=== PATIENT | male | born 1950 | race Two or more races ===

== ENCOUNTER → 2020-09-15 10:03 | Outpatient (BNVA) | payer MEDICARE, SELFPAY | PROVIDERS: PCP Family Medicine; Referring Provider Family Medicine; Visit Provider Internal Medicine | DX: I48.20 Chronic atrial fibrillation, unspecified (principal); Z51.81 Encounter for therapeutic drug level monitoring; Z79.01 Long term (current) use of anticoagulants | CPT/HCPCS: 85610; 99211 ==

== ENCOUNTER → 2020-10-13 09:53 | Outpatient (BNVA) | payer MEDICARE, SELFPAY | PROVIDERS: PCP Family Medicine; Visit Provider Internal Medicine | DX: I48.20 Chronic atrial fibrillation, unspecified (principal); Z51.81 Encounter for therapeutic drug level monitoring; Z79.01 Long term (current) use of anticoagulants | CPT/HCPCS: 85610; 99211 ==

== ENCOUNTER → 2020-11-10 09:56 | Outpatient (BNVA) | payer MEDICARE, SELFPAY | PROVIDERS: PCP Family Medicine; Visit Provider Internal Medicine | DX: I48.20 Chronic atrial fibrillation, unspecified (principal); Z79.01 Long term (current) use of anticoagulants; Z51.81 Encounter for therapeutic drug level monitoring | CPT/HCPCS: 85610; 99211 ==

== ENCOUNTER 2020-12-07 10:23 | Outpatient (REF) | payer MEDICARE, SELFPAY ==
[2020-12-07 11:31] LABS: MANUAL DIFF FLAG NO
[2020-12-07 11:35] LABS: Basophils Absolute Auto 0.1 X10*3/uL (0.0-0.2); Basophils Percent Auto 1.1 % (0-2); Eosinophils Absolute Auto 0.4 X10*3/uL (0.0-0.4); Eosinophils Percent Auto 4.8 % (0-4); Hemoglobin 15.5 g/dl (14.0-18.0); Imm Gran Abs Auto 0.04 X10*3/uL (0.00-0.03); Imm Gran Pct Auto 0.5 % (0.0-0.4); Lymphocytes Absolute Auto 2.1 X10*3/uL (1.2-4.9); Lymphocytes Percent Auto 25.3 % (20-40); Mean Corpuscular Hemoglobin 26.8 pg (27.0-33.0); Mean Corpuscular Volume 86.5 fL (80-98); Mean Platelet Volume 10.9 fL (9.4-12.4); Monocytes Absolute Auto 0.9 X10*3/uL (0.1-1.2); Monocytes Percent Auto 11.5 % (2-11); Neutrophils Absolute Auto 4.7 X10*3/uL (2.0-8.3); Neutrophils Percent Auto 56.8 % (45-73); Platelet Count 259 X10*3/uL (160-400); Red Blood Count 5.78 X10*6/uL (4.60-5.80); Red Cell Distribution Width 15.3 % (11.0-16.0); White Blood Count 8.2 X10*3/uL (4.8-10.8)
[2020-12-07 12:00] LABS: Anion Gap 14 (12-20); Blood Urea Nitrogen 54 mg/dL (9-16); Calcium 9.4 mg/dL (8.4-10.2); Carbon Dioxide 28 mmol/L (22-29); Chloride 104 mmol/L (96-108); Estimated Glomerular Filt Rate 21; Potassium 5.1 mmol/l (3.3-5.1); Sodium 141 mmol/L (135-145)
== END 2020-12-07 10:24 | disposition home or self-care (01) ==
LOC: HO.LAB 10:23
PROVIDERS: PCP Family Medicine; Visit Provider Internal Medicine Hypertension Specialist
DX: I12.9 Hypertensive chronic kidney disease with stage 1 through stage 4 chronic kidney disease, or unspecified chronic kidney disease (principal); N18.30 Chronic kidney disease, stage 3 unspecified; R80.9 Proteinuria, unspecified; N11.9 Chronic tubulo-interstitial nephritis, unspecified
CPT/HCPCS: 36415; 80051; 82310; 82565; 84520; 85025

== ENCOUNTER → 2020-12-08 10:04 | Outpatient (BNVA) | payer MEDICARE, SELFPAY | PROVIDERS: PCP Family Medicine; Visit Provider Internal Medicine | DX: I48.20 Chronic atrial fibrillation, unspecified (principal); Z51.81 Encounter for therapeutic drug level monitoring; Z79.01 Long term (current) use of anticoagulants | CPT/HCPCS: 85610; 99211 ==

== ENCOUNTER → 2021-01-05 09:47 | Outpatient (BNVA) | payer MEDICARE, SELFPAY | PROVIDERS: PCP Family Medicine; Visit Provider Internal Medicine | DX: I48.20 Chronic atrial fibrillation, unspecified (principal); Z51.81 Encounter for therapeutic drug level monitoring; Z79.01 Long term (current) use of anticoagulants | CPT/HCPCS: 85610; 99211 ==

== ENCOUNTER → 2021-01-07 10:45 | Outpatient (BNVA) | payer MEDICARE, SELFPAY | PROVIDERS: PCP Family Medicine; Visit Provider Internal Medicine Cardiovascular Disease | DX: I48.0 Paroxysmal atrial fibrillation (principal); I25.10 Atherosclerotic heart disease of native coronary artery without angina pectoris; R00.1 Bradycardia, unspecified | CPT/HCPCS: 93005; 99212 ==

== ENCOUNTER → 2021-01-11 09:56 | Outpatient (BNVA) | payer MEDICARE, SELFPAY | PROVIDERS: PCP Family Medicine; Visit Provider Internal Medicine | DX: I48.20 Chronic atrial fibrillation, unspecified (principal); Z51.81 Encounter for therapeutic drug level monitoring; Z79.01 Long term (current) use of anticoagulants | CPT/HCPCS: 85610; 99211 ==

== ENCOUNTER → 2021-01-25 09:55 | Outpatient (BNVA) | payer MEDICARE, SELFPAY | PROVIDERS: PCP Family Medicine; Visit Provider Internal Medicine | DX: I48.0 Paroxysmal atrial fibrillation (principal); Z51.81 Encounter for therapeutic drug level monitoring; Z79.01 Long term (current) use of anticoagulants | CPT/HCPCS: 85610; 99211 ==

== ENCOUNTER → 2021-02-22 09:50 | Outpatient (BNVA) | payer MEDICARE, SELFPAY | PROVIDERS: PCP Family Medicine; Visit Provider Internal Medicine | DX: I48.0 Paroxysmal atrial fibrillation (principal); Z79.01 Long term (current) use of anticoagulants; Z51.81 Encounter for therapeutic drug level monitoring | CPT/HCPCS: 85610; 99211 ==

== ENCOUNTER 2021-03-03 10:09 | Emergency (ER) | payer MEDICARE, SELFPAY ==
[2021-03-03 11:31] VITALS: BP 119/83; PULSE 93; RESP 14; TEMP 36.6; O2SAT 96; BMI 31.4
[2021-03-03 12:16] LABS: MANUAL DIFF FLAG NO
[2021-03-03 12:21] LABS: Basophils Absolute Auto 0.1 X10*3/uL (0.0-0.2); Eosinophils Absolute Auto 0.4 X10*3/uL (0.0-0.4); Hematocrit 45.3 % (42-52); Hemoglobin 14.4 g/dl (14.0-18.0); Imm Gran Abs Auto 0.04 X10*3/uL (0.00-0.03); Imm Gran Pct Auto 0.6 % (0.0-0.4); Lymphocytes Absolute Auto 1.7 X10*3/uL (1.2-4.9); Lymphocytes Percent Auto 22.7 % (20-40); Mean Corpuscular HGB Conc 31.8 g/dl (31.0-36.0); Mean Corpuscular Hemoglobin 27.7 pg (27.0-33.0); Mean Corpuscular Volume 87.3 fL (80-98); Mean Platelet Volume 11.2 fL (9.4-12.4); Monocytes Absolute Auto 0.8 X10*3/uL (0.1-1.2); Neutrophils Absolute Auto 4.4 X10*3/uL (2.0-8.3); Neutrophils Percent Auto 59.7 % (45-73); Platelet Count 215 X10*3/uL (160-400); Red Blood Count 5.19 X10*6/uL (4.60-5.80); Red Cell Distribution Width 15.6 % (11.0-16.0); White Blood Count 7.3 X10*3/uL (4.8-10.8)
[2021-03-03 12:26] LABS: INTERNATIONAL NORM RATIO 2.7 (0.9-1.1); Prothrombin Time 32.6 SEC (10.8-13.0)
[2021-03-03 12:46] LABS: Anion Gap 10 (12-20); Blood Urea Nitrogen 48 mg/dL (9-16); Calcium 9.1 mg/dL (8.4-10.2); Carbon Dioxide 23 mmol/L (22-29); Chloride 111 mmol/L (96-108); Creatinine Clr Calc Pharmacy 28.5; Estimated Glomerular Filt Rate 26; Glucose Random 135 mg/dL (60-115); Potassium 4.9 mmol/L (3.3-5.1); Sodium 139 mmol/L (135-145)
--- NOTE | 2021-03-03 13:14 | ED.EYEPROB ---
HPI - Eye Problem General Chief complaint: Eye Problems Stated complaint: RED EYES Time Seen by Provider: 03/03/21 11:24 Source: patient and family ( at bedside) Mode of arrival: ambulatory Limitations: no limitations History of Present Illness HPI Narrative: 70-year-old male with a past medical history of coronary artery disease, paroxysmal atrial fibrillation currently on Coumadin, sinus bradycardia and hypertension presenting to the ED with complaints of right eye redness over the past month and he feels like it is now going to the left eye. Denies any trauma or any other symptoms complaints or concerns at this time. chief complaint: eye redness Onset (ago): month(s) (1 month) Onset description: unknown Duration: constant and progressively worsening Location: right eye Eye Symptoms: redness Place: home Mechanism: none Severity: mild Associated symptoms: none Treatments Prior to Arrival: none Related Data Home Medications Medication Instructions Recorded Confirmed atorvastatin 40 mg tablet 40 mg PO BEDTIME 01/07/21 01/25/21 cholecalciferol (vitamin D3) 25 25 mcg PO DAILY 01/07/21 01/25/21 mcg (1,000 unit) capsule fenofibrate 160 mg tablet 160 mg PO DAILY 01/07/21 01/25/21 gabapentin 100 mg capsule 100 mg PO BEDTIME 01/07/21 01/25/21 metoprolol tartrate 100 mg tablet 100 mg PO BID 01/07/21 01/25/21 Previous Rx's Medication Instructions Recorded warfarin 5 mg tablet 5 mg PO DAILY #90 tab 09/15/20 Allergies Allergy/AdvReac Type Severity Reaction Status Date / Time lisinopril [LISINOPRIL] Allergy Severe ACUTE Verified 01/25/21 10:14 KIDNEY INJURY acetaminophen [From PERCOCET] Allergy Unknown AGITATION Verified 01/25/21 10:14 codeine [CODEINE] Allergy Unknown AGITATION Verified 01/25/21 10:14 morphine [MORPHINE] Allergy Unknown AGITATION, Verified 01/25/21 10:14 confusion oxycodone [Percocet] Allergy Unknown UNKNOWN Verified 01/25/21 10:14 From PERCOCET Allergy Unknown AGITATION Uncoded 08/06/20 16:11 Review of Systems Review of Systems: Constitutional : No fevers, no chills, No changes in activity, No lethargy, No recent prior head injury, No agitation, No increased fussiness ENT/Mouth : No Ear Pain, No Nasal discharge/drainage Eyes: No Vision changes/blurry/decreased vision, No Eye Pain, No Swelling, + Redness, No Foreign Body, No Photophobia, no discharge, no drainage, no itching, no eyelid edema, no contact lens uses, no recent welding, no bleeding Cardiovascular : No Chest Pain, No SOB Respiratory : No Cough Gastrointestinal : No Nausea, No Vomiting, No abdominal Pain Genitourinary : No Dysuria, No Urinary Frequency, No Urinary Incontinence, No Urgency, No Flank Pain Musculoskeletal : No joint pain, No neck stiffness, No back pain/injury Skin : No lacerations Neuro : No unsteady gait, No Paresthesias, No Loss of Consciousness, No altered mental status, No dizziness, No Headache Denies past medical history of HIV, recent trauma, coagulopathy, recent spinal/ epidural procedure, new medication, URI symptoms, close contacts with similar symptoms, tick bite, or known CO2 exposure. Yes all other systems are reviewed and are negative PMFSH Past Medical History Attestation statement: The following information was validated with the patient. Medical History CAD (coronary artery disease) HTN (hypertension) Paroxysmal atrial fibrillation Sinus bradycardia Surgical History History of esophagogastroduodenoscopy (EGD) Hx of cardiac cath Hx of cataract extraction Hx of colonoscopy Hx of cystoscopy Stented coronary artery Social History Social History Smoked in Last 30 Days: No Use of substances other than those prescribed or required for medical reasons: No Advance Directives: No Advance Directives Information Provided: Yes Physical Exam Vital Signs: Vital Signs: Last Vital Signs Temp 97.9 F 03/03/21 11:31 Pulse 93 03/03/21 11:31 Resp 14 03/03/21 11:31 BP 119/83 03/03/21 11:31 Pulse Ox 96 03/03/21 11:31 Body Mass Index 31.4 vital signs have been reviewed as normal and appeared to be correct. Blood pressure normal. Heart rate normal. Respiration rate normal. Temperature normal. Oxygen saturation normal. Appearance: Alert. Oriented X3. No acute distress. Head: Normal external exam. Normocephalic. Atraumatic. No Garay signs noted. No raccoon eyes noted Eyes: PERRLA. EOMI. To right conjunctiva patient has subconjunctival hemorrhage noted. Left conjunctiva within normal limits. Cornea are normal. Funduscopic exam within normal limits. Sclera normal. Eyelids normal. No papilledema noted. Anterior chamber normal. No photophobia noted. ENT: EAC normal. TM's Normal. Pharynx normal. Uvula midline. Moist mucous membranes. Neck: Normal inspection. Neck supple. FROM. No adenopathy. Thyroid Normal. No meningeal signs. No neck mass noted. CVS: Normal heart rate and rhythm. Heart sound normal. No murmurs noted. Pulses normal throughout. Respiratory: No respiratory distress. Painless inspiration. Breath sounds normal. Back: Full range of motion noted. Skin: Skin warm and dry. Normal skin color. Normal skin turgor. No rashes/lesions/lacerations noted. Extremities: No lower extremity edema. Extremities exhibit normal range of motion. Extremities nontender. Neuro: Oriented X 3. No motor deficit. No sensory deficit. Reflexes normal. Course Course Course Narrative: 70-year-old male presenting to the ED with subconjunctival hemorrhage. Wanted his PT INR checked labs obtained and patient's PT INR is 32.6 and 2.7 therefore within normal limits. BUN and creatinine elevated although similar compared to prior. Will DC home with instructions return if any new or worsening symptoms to follow up with primary care provider/coin teller. Patient understands agrees with this plan. MDM - Eye Problem Medical Records Attestation: I reviewed the patient's medical records. Lab Data Attestation: I reviewed the patient's lab results. Result diagrams: 03/03/21 12:09 03/03/21 12:09 Labs: Lab Results 03/03/21 03/03/21 03/03/21 Range/Units 12:09 12:09 12:09 WBC 7.3 (4.8-10.8) X10*3/uL RBC 5.19 (4.60-5.80) X10*6/uL Hgb 14.4 (14.0-18.0) g/dl Hct 45.3 (42-52) % MCV 87.3 (80-98) fL MCH 27.7 (27.0-33.0) pg MCHC 31.8 (31.0-36.0) g/dl RDW 15.6 (11.0-16.0) % Plt Count 215 (160-400) X10*3/uL MPV 11.2 (9.4-12.4) fL Immature Gran % (Auto) 0.6 H (0.0-0.4) % Neut % (Auto) 59.7 (45-73) % Lymph % (Auto) 22.7 (20-40) % [place] % (Auto) 11.0 (2-11) % Eos % (Auto) 5.0 H (0-4) % Baso % (Auto) 1.0 (0-2) % Lymph # (Auto) 1.7 (1.2-4.9) X10*3/uL [place] # (Auto) 0.8 (0.1-1.2) X10*3/uL Eos # (Auto) 0.4 (0.0-0.4) X10*3/uL Baso # (Auto) 0.1 (0.0-0.2) X10*3/uL Abs Immat Gran (auto) 0.04 H (0.00-0.03) X10*3/uL Absolute Neuts (auto) 4.4 (2.0-8.3) X10*3/uL Absolute Nucleated RBC 0.000 (0.0-0.012) X10*3/uL Nucleated RBC % (auto) 0.0 (0.0-0.2) /100WBC PT 32.6 H (10.8-13.0) SEC INR 2.7 H (0.9-1.1) Sodium 139 (135-145) mmol/L Potassium 4.9 (3.3-5.1) mmol/L Chloride 111 H (96-108) mmol/L Carbon Dioxide 23 (22-29) mmol/L Anion Gap 10 L (12-20) BUN 48 H (9-16) mg/dL Creatinine 2.51 H (0.5-1.4) mg/dL Estim Creat Clear Calc 28.5 Estimated GFR 26 Random Glucose 135 H (60-115) mg/dL Calcium 9.1 (8.4-10.2) mg/dL Discharge Plan Discharge Clinical Impression: Subconjunctival hemorrhage Patient Disposition: Home, Self-Care Instructions: Subconjunctival Hemorrhage (ED) Prescriptions: No Action warfarin 5 mg tablet 5 mg PO DAILY Qty: 90 RF: 0 atorvastatin 40 mg tablet 40 mg PO BEDTIME RF: 0 fenofibrate 160 mg tablet 160 mg PO DAILY RF: 0 gabapentin 100 mg capsule 100 mg PO BEDTIME RF: 0 metoprolol tartrate 100 mg tablet 100 mg PO BID RF: 0 cholecalciferol (vitamin D3) 25 mcg (1,000 unit) capsule 25 mcg PO DAILY RF: 0 Referrals: Jose F Cottrell [Physician] - 2 days Sherry Ward MD [Primary Care Provider] - 2 days Print Language: Malawian
== END 2021-03-03 13:50 | disposition home or self-care (01) ==
PROVIDERS: Physician Assistant Medical; Emergency Provider Emergency Medicine Emergency Medical Services; PCP Family Medicine
DX: H11.32 Conjunctival hemorrhage, left eye (principal); I10 Essential (primary) hypertension; I48.0 Paroxysmal atrial fibrillation; Z79.01 Long term (current) use of anticoagulants
CPT/HCPCS: 36415; 80048; 85025; 85610; 99283

== ENCOUNTER 2021-03-05 09:55 | Outpatient (REF) | payer MEDICARE, SELFPAY ==
--- NOTE | ~2021-03-05 | CT_ITS ---
EXAMINATION: CT CHEST WITHOUT CONTRAST CLINICAL INFORMATION: Follow-up thoracic aortic aneurysm COMPARISON: Previous chest CT scans most recent December 2019 TECHNIQUE: Multidetector volumetric CT imaging of the chest was done. Axial MIP volume rendering provided. Sagittal and coronal reformatted images were obtained. This CT examination was performed using dose optimization techniques as appropriate, variously including the following: *Automated exposure control *Adjustment of mA and/or kV according to patient size (this includes techniques or standardized protocols for targeted exams where dose is matched to indication/reason for exam; i.e. extremities or head) *Use of iterative reconstruction technique DLP: 190 mGy-cm FINDINGS: LUNGS: There is a 3 mm peripheral or subpleural left upper lobe nodule adjacent to the fissure axial image 118 series 7 that is stable. The lungs are otherwise clear. 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 There is heterogeneous attenuation seen in the thoracic aorta without contrast and some linear calcification questionable for thrombus versus old dissection. This appears unchanged. The ascending thoracic aorta is normal in caliber measuring 3.5 cm in diameter. The heart does not appear enlarged. There is mild coronary artery and aortic valve calcification. There are no enlarged lymph nodes. PLEURA: There is no pleural effusion. No pleural mass or thickening. AXILLA: No lymphadenopathy. UPPER ABDOMEN: There are gallstones in the gallbladder. OSSEOUS STRUCTURES: There are degenerative changes of the spine. 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
== END 2021-03-05 09:56 | disposition home or self-care (01) ==
LOC: HO.CT 09:55
PROVIDERS: PCP Family Medicine; Visit Provider Surgery Vascular Surgery
DX: I71.2 Thoracic aortic aneurysm, without rupture (principal)
CPT/HCPCS: 71250

== ENCOUNTER → 2021-04-13 13:23 | Outpatient (BNVA) | payer MEDICARE, SELFPAY | PROVIDERS: PCP Family Medicine; Visit Provider Internal Medicine | DX: I48.0 Paroxysmal atrial fibrillation (principal); Z51.81 Encounter for therapeutic drug level monitoring; Z79.01 Long term (current) use of anticoagulants | CPT/HCPCS: 85610; 99211 ==

== ENCOUNTER → 2021-04-20 10:05 | Outpatient (BNVA) | payer MEDICARE, SELFPAY | PROVIDERS: PCP Family Medicine; Visit Provider Surgery Vascular Surgery | DX: I71.2 Thoracic aortic aneurysm, without rupture (principal) | CPT/HCPCS: 99212 ==

== ENCOUNTER → 2021-05-11 13:01 | Outpatient (BNVA) | payer MEDICARE, SELFPAY | PROVIDERS: PCP Family Medicine; Visit Provider Internal Medicine | DX: I48.0 Paroxysmal atrial fibrillation (principal); Z51.81 Encounter for therapeutic drug level monitoring; Z79.01 Long term (current) use of anticoagulants | CPT/HCPCS: 85610; 99211 ==

== ENCOUNTER → 2021-06-08 13:23 | Outpatient (BNVA) | payer MEDICARE, SELFPAY | PROVIDERS: PCP Family Medicine; Visit Provider Internal Medicine | DX: I48.0 Paroxysmal atrial fibrillation (principal); Z51.81 Encounter for therapeutic drug level monitoring; Z79.01 Long term (current) use of anticoagulants | CPT/HCPCS: 85610; 99211 ==

== ENCOUNTER → 2021-07-06 13:31 | Outpatient (BNVA) | payer MEDICARE, SELFPAY | PROVIDERS: PCP Family Medicine; Visit Provider Internal Medicine | DX: I48.0 Paroxysmal atrial fibrillation (principal); Z51.81 Encounter for therapeutic drug level monitoring; Z79.01 Long term (current) use of anticoagulants | CPT/HCPCS: 85610; 99211 ==

== ENCOUNTER → 2021-07-08 10:45 | Outpatient (BNVA) | payer MEDICARE, SELFPAY | PROVIDERS: PCP Family Medicine; Visit Provider Internal Medicine Cardiovascular Disease | DX: I48.0 Paroxysmal atrial fibrillation (principal); I25.10 Atherosclerotic heart disease of native coronary artery without angina pectoris; R00.1 Bradycardia, unspecified | CPT/HCPCS: 99212 ==

== ENCOUNTER 2021-07-30 07:56 | Outpatient (REF) | payer MEDICARE, SELFPAY ==
--- NOTE | ~2021-07-30 | US_ITS ---
EXAMINATION: US RETROPERITONEAL LIMITED (RENAL ONLY) CLINICAL INFORMATION: Chronic kidney disease stage 3 unspecified. COMPARISON: Renal ultrasound 12/11/2019. TECHNIQUE: Real-time imaging of the kidneys. FINDINGS: RIGHT KIDNEY: 9.4 x 5.6 x 4.6 cm (SAG x AP x TRV). The kidney is normal in contour, and echogenicity. Renal cortical thickness is normal. No calculi or focal parenchymal lesions. No hydronephrosis. LEFT KIDNEY: 9.1 x 4.0 x 3.9 cm (SAG x AP x TRV). The kidney is normal in contour, and echogenicity. Renal cortical thickness is normal. No renal calculi or hydronephrosis. 6 mm simple cyst of the upper pole the right kidney for which no imaging follow-up is recommended. US/US renal BI IMPRESSION: Symmetrically diminutive kidneys. This may reflect symmetric atrophy or body habitus. No renal cortical thinning. Normal renal cortical echogenicity. No hydronephrosis.
== END 2021-07-30 07:57 | disposition home or self-care (01) ==
LOC: HO.US 07:56
PROVIDERS: PCP Family Medicine; Visit Provider Urology
DX: N18.30 Chronic kidney disease, stage 3 unspecified (principal); N40.1 Benign prostatic hyperplasia with lower urinary tract symptoms
CPT/HCPCS: 76775

== ENCOUNTER → 2021-08-03 08:29 | Outpatient (BNVA) | payer MEDICARE, SELFPAY | PROVIDERS: PCP Family Medicine; Visit Provider Internal Medicine | DX: I48.0 Paroxysmal atrial fibrillation (principal); Z51.81 Encounter for therapeutic drug level monitoring; Z79.01 Long term (current) use of anticoagulants | CPT/HCPCS: 85610; 99211 ==

== ENCOUNTER 2021-08-10 10:00 | Outpatient (REF) | payer MEDICARE, SELFPAY ==
[2021-08-10 11:36] LABS: PSA,Total (Free>4and<10) 0.97 ng/mL (0.00-4.00)
== END 2021-08-10 10:01 | disposition home or self-care (01) ==
LOC: HO.LAB 10:00
PROVIDERS: PCP Family Medicine; Visit Provider Urology
DX: Z12.5 Encounter for screening for malignant neoplasm of prostate (principal); N40.1 Benign prostatic hyperplasia with lower urinary tract symptoms
CPT/HCPCS: 36415; 84153

== ENCOUNTER → 2021-08-31 09:28 | Outpatient (BNVA) | payer MEDICARE, SELFPAY | PROVIDERS: PCP Family Medicine; Visit Provider Internal Medicine | DX: I48.0 Paroxysmal atrial fibrillation (principal); Z51.81 Encounter for therapeutic drug level monitoring; Z79.01 Long term (current) use of anticoagulants | CPT/HCPCS: 85610; 99211 ==

== ENCOUNTER → 2021-09-14 09:49 | Outpatient (BNVA) | payer MEDICARE, SELFPAY | PROVIDERS: PCP Family Medicine; Visit Provider Internal Medicine | DX: I48.0 Paroxysmal atrial fibrillation (principal); Z51.81 Encounter for therapeutic drug level monitoring; Z79.01 Long term (current) use of anticoagulants | CPT/HCPCS: 85610; 99211 ==

== ENCOUNTER → 2021-10-12 10:03 | Outpatient (BNVA) | payer MEDICARE, SELFPAY | PROVIDERS: PCP Family Medicine; Visit Provider Internal Medicine | DX: I48.0 Paroxysmal atrial fibrillation (principal); Z51.81 Encounter for therapeutic drug level monitoring; Z79.01 Long term (current) use of anticoagulants | CPT/HCPCS: 85610; 99211 ==

== ENCOUNTER → 2021-10-20 14:41 | Outpatient (BNVA) | payer MEDICARE, SELFPAY | PROVIDERS: PCP Family Medicine; Visit Provider Urology | DX: N20.0 Calculus of kidney (principal) | CPT/HCPCS: Q3014 ==

== ENCOUNTER → 2021-11-09 09:51 | Outpatient (BNVA) | payer MEDICARE, SELFPAY | PROVIDERS: PCP Family Medicine; Visit Provider Internal Medicine | DX: I48.0 Paroxysmal atrial fibrillation (principal); Z51.81 Encounter for therapeutic drug level monitoring; Z79.01 Long term (current) use of anticoagulants | CPT/HCPCS: 85610; 99211 ==

== ENCOUNTER → 2021-12-07 10:00 | Outpatient (BNVA) | payer MEDICARE, SELFPAY | PROVIDERS: PCP Family Medicine; Visit Provider Internal Medicine | DX: I48.0 Paroxysmal atrial fibrillation (principal); Z51.81 Encounter for therapeutic drug level monitoring; Z79.01 Long term (current) use of anticoagulants | CPT/HCPCS: 85610; 99211 ==

== ENCOUNTER → 2021-12-13 09:57 | Outpatient (BNVA) | payer MEDICARE, SELFPAY | PROVIDERS: PCP Family Medicine; Visit Provider Internal Medicine | DX: I48.0 Paroxysmal atrial fibrillation (principal); Z51.81 Encounter for therapeutic drug level monitoring; Z79.01 Long term (current) use of anticoagulants | CPT/HCPCS: 85610; 99211 ==

== ENCOUNTER → 2021-12-20 10:05 | Outpatient (BNVA) | payer MEDICARE, SELFPAY | PROVIDERS: PCP Family Medicine; Visit Provider Internal Medicine | DX: I48.0 Paroxysmal atrial fibrillation (principal); Z51.81 Encounter for therapeutic drug level monitoring; Z79.01 Long term (current) use of anticoagulants | CPT/HCPCS: 85610; 99211 ==

== ENCOUNTER 2021-12-21 11:48 | Outpatient (REF) | payer MEDICARE, SELFPAY ==
[2021-12-21 13:33] LABS: Alanine Aminotransferase 21 U/L (0-40); Albumin Level 3.7 g/dL (3.5-5.0); Alkaline Phosphatase 40 U/L (39-117); Anion Gap 12 (12-20); Aspartate Amino Transferase 25 U/L (5-37); Bilirubin Total 0.6 mg/dL (0.0-1.0); Blood Urea Nitrogen 42 mg/dL (9-16); Calcium 9.3 mg/dL (8.4-10.2); Carbon Dioxide 27 mmol/L (22-29); Chloride 109 mmol/L (96-108); Estimated Glomerular Filt Rate 24; Glucose Random 98 mg/dL (60-115); Potassium 5.3 mmol/L (3.3-5.1); Sodium 143 mmol/L (135-145); Total Protein 6.9 g/dL (6.5-8.0)
[2021-12-21 13:40] LABS: Creatinine Urine 79.79 mg/dL; Protein/Creatinine Ratio, Ur 2.12 (<0.2); Total Protein Urine Random 169 mg/dL (<12)
[2021-12-23 16:31] LABS: PTHI 85 pg/mL (14-64)
== END 2021-12-21 11:49 | disposition home or self-care (01) ==
LOC: HO.LAB 11:48
PROVIDERS: PCP Family Medicine; Visit Provider Internal Medicine Hypertension Specialist
DX: N18.4 Chronic kidney disease, stage 4 (severe) (principal)
CPT/HCPCS: 36415; 80053; 83970; 84156

== ENCOUNTER → 2021-12-28 13:54 | Outpatient (REF) | payer MEDICARE, SELFPAY ==
--- NOTE | 2021-12-28 13:58 | CA_ITS ---
Transthoracic Echocardiogram Patient (Last, First, Middle): Ziggy Payton R Gender: Male Date of : 1950 Age: 71 Procedure Date: 12/28/2021 Procedure Type: Transthoracic Echocardiogram Location: OP Height: 167.64 cm Weight: 86.18 kg BSA: 1.96 m2 Heart Rate: bpm BP: 124 / 70 mmHg Story Teller: JENNIFER Referring MD: Chan Cain MD Symptoms: I48.0 - Paroxysmal atrial fibrillation Study Quality: Fair ECG Rhythm: Atrial Fibrillation Conclusions: - The left ventricular systolic function is normal. The visually estimated ejection fraction is between 55-60%. - There is mild mitral valve regurgitation. - There is mild calcification of the aortic valve. - Patient in atrial fibrillation/slightly rapid rate during study. Findings Left Ventricle Normal left ventricular cavity size. There is mildly increased left ventricular wall thickness. The left ventricular systolic function is normal. The visually estimated ejection fraction is between 55-60%. There is no evidence of regional wall motion abnormalities. Diastolic function is indeterminate on the basis of available data. Right Ventricle Normal right ventricular cavity size and systolic function. Atria Both atria are normal in size. Aortic Valve There is mild calcification of the aortic valve. There is no aortic valve stenosis. There is no aortic valve regurgitation. Mitral Valve The mitral valve appears normal. There is mild mitral valve regurgitation. There is no mitral valve stenosis. Pulmonic Valve The pulmonic valve was not well visualized. Tricuspid Valve There is trace tricuspid valve regurgitation. The pulmonary artery systolic pressure is normal. Great Vessels The aortic annulus is normal in size. Venous Top normal IVC size with slightly blunted collapse. Pericardium/Pleural There is no evidence of pericardial effusion. Prior Study Comparison No significant change compared to prior study dated: 01/21/2019. Measurements 2D Linear Measurements IVSd: 1.15 0.6-0.9/0.6-1.0 cm LVIDd: 5.24 3.9-5.3/4.2-5.9 cm LVIDd Index: 2.67 2.4-3.2/2.2-3.1 cm/m2 LVIDs: 3.77 2.0-3.6 cm LVPWd: 0.98 0.7-1.1 cm Ao Root: 3.20 2.1-3.5 cm LA Diam: 4.70 2.7-3.8/3.0-4.0 cm LAIDs Index: 2.40 1.5-2.3 cm/m2 LV Mass: 266.86 67-162/88-224 g LV Mass Index: 136.16 43-95/49-115 g/m2 LVOT Diam: 2.10 3.0+(-)1.3 cm 2D Systolic Function EF 4C: 74.30 >55% EF 2C: 53.20 >55% EF BiP: 65.70 >55% Mitral Valve MV Pk E: 0.97 MV Decel Time: 74.00 E'Lateral: 8.92 E'Medial: 5.22 E/E' Med: 18.60 E/E' Lat: 10.90 PHT: 22.00 MVA PHT: 10.00 Decel [place]: 14.13 Aortic Valve AoV Pk Reuben: 1.14 AoV Pk Grad: 5.00 LVOT LVOT Pk Reuben: 0.75 LVOT Mn Reuben: 0.52 LVOT VTI: 0.13 LVOT Pk Grad: 2.00 LVOT Mn Grad: 1.00 LVOT Diam: 2.10 LVOT Area: 3.46 Diastolic Function MV Pk E: 0.97 E'Medial: 5.22 E/E' Med: 18.60 E' Laterial: 8.92 E/E' Lat: 10.90 Right Ventricle TAPSE (mm): 1.89 TVS' Reuben: 12.10 Tricuspid Valve TR Pk Reuben: 2.29 TR Pk Grad: 21.00 RA Press: 3.00 RVSP: 24.00 Great Vessels Aorta Ao Root-2D: 3.20 2.0-3.7 cm Updated in Other Vendor System with Status of Final Howard Goldman MD electronically signed on 12/28/2021 5:12:18 PM with status of Final
== END ==
LOC: HO.CARD 13:54
PROVIDERS: PCP Family Medicine; Visit Provider Internal Medicine Cardiovascular Disease
DX: I48.0 Paroxysmal atrial fibrillation (principal)
CPT/HCPCS: 93306

== ENCOUNTER → 2022-01-03 10:13 | Outpatient (BNVA) | payer MEDICARE, SELFPAY | PROVIDERS: PCP Family Medicine; Visit Provider Internal Medicine | DX: I48.0 Paroxysmal atrial fibrillation (principal); Z51.81 Encounter for therapeutic drug level monitoring; Z79.01 Long term (current) use of anticoagulants | CPT/HCPCS: 85610; 99211 ==

== ENCOUNTER → 2022-01-11 11:03 | Outpatient (BNVA) | payer MEDICARE, SELFPAY | PROVIDERS: PCP Family Medicine; Referring Provider Family Medicine; Visit Provider Internal Medicine Cardiovascular Disease | DX: I48.0 Paroxysmal atrial fibrillation (principal); I25.10 Atherosclerotic heart disease of native coronary artery without angina pectoris; R00.1 Bradycardia, unspecified | CPT/HCPCS: 93005; 99212 ==

== ENCOUNTER → 2022-02-01 10:01 | Outpatient (BNVA) | payer MEDICARE, SELFPAY | PROVIDERS: PCP Family Medicine; Visit Provider Internal Medicine | DX: I48.0 Paroxysmal atrial fibrillation (principal); Z51.81 Encounter for therapeutic drug level monitoring; Z79.01 Long term (current) use of anticoagulants | CPT/HCPCS: 85610; 99211 ==

== ENCOUNTER → 2022-02-04 11:27 | Outpatient (REF) | payer MEDICARE, SELFPAY ==
--- NOTE | 2022-02-04 11:31 | HM_ITS ---
* Total monitoring time 2 days and 23 hours. * Underlying rhythm is atrial fibrillation. Average 108/Min. Range 58 to 141/Min. 77% of the time, rate > 100/Min. * One pause, 2.9 seconds at 07:04am. * Rare ventricular ectopy with minimal burden. * No patient events. * Overall, poorly controlled atrial fibrillation with frequent rapid rates. MTDD
== END ==
LOC: HO.CARD 11:27
PROVIDERS: PCP Family Medicine; Visit Provider Internal Medicine Cardiovascular Disease
DX: I48.0 Paroxysmal atrial fibrillation (principal)
CPT/HCPCS: 93242

== ENCOUNTER → 2022-03-01 09:50 | Outpatient (BNVA) | payer MEDICARE, SELFPAY | PROVIDERS: PCP Family Medicine; Visit Provider Internal Medicine | DX: I48.0 Paroxysmal atrial fibrillation (principal); Z51.81 Encounter for therapeutic drug level monitoring; Z79.01 Long term (current) use of anticoagulants | CPT/HCPCS: 85610; 99211 ==

== ENCOUNTER → 2022-03-16 09:58 | Outpatient (BNVA) | payer MEDICARE, SELFPAY | PROVIDERS: PCP Family Medicine; Visit Provider Internal Medicine | DX: I48.0 Paroxysmal atrial fibrillation (principal); Z79.01 Long term (current) use of anticoagulants; Z51.81 Encounter for therapeutic drug level monitoring | CPT/HCPCS: 85610; 99211 ==

== ENCOUNTER 2022-03-17 12:10 | Emergency (ER) | payer MEDICARE, SELFPAY ==
--- NOTE | ~2022-03-17 | CT_ITS ---
EXAMINATION: CT HEAD WITHOUT CONTRAST CLINICAL INFORMATION: Dizziness COMPARISON: CT head 02/05/2018 TECHNIQUE: Contiguous axial imaging was performed from the skull base to vertex without intravenous administration of contrast. Coronal and sagittal reformatted images are performed at CT scanner This CT examination was performed using dose optimization techniques as appropriate, variously including the following: *Automated exposure control *Adjustment of mA and/or kV according to patient size (this includes techniques or standardized protocols for targeted exams where dose is matched to indication/reason for exam; i.e. extremities or head) *Use of iterative reconstruction technique DLP: 766 mGy-cm FINDINGS: There is no evidence of acute intracranial hemorrhage or territorial infarction. No abnormal mass effect or midline shift is seen. [place] to white matter differentiation is well preserved. No extra-axial fluid collections are identified. There is generalized global volume loss. There is mild prominence of the ventricles and the sulci . There is mild hypodensity of the periventricular white matter due to chronic small vessel ischemic disease. There are vascular calcifications of the internal carotid arteries bilaterally. The osseous structures and soft tissues are normal. The mastoid air cells and visualized portions of the paranasal sinuses are well aerated. CT/CT head/brain wo con IMPRESSION: No acute intracranial pathology.
[2022-03-17 12:26] VITALS: BP 161/81; PULSE 50; RESP 20; TEMP 36.8; O2SAT 97; BMI 31.4
--- NOTE | 2022-03-17 12:29 | ECG_ITS ---
Test Reason : dizzy Blood Pressure : / mmHG Vent. Rate : 050 BPM Atrial Rate : 050 BPM P-R Int : 164 ms QRS Dur : 078 ms QT Int : 454 ms P-R-T Axes : 030 -14 031 degrees QTc Int : 413 ms Sinus bradycardia Otherwise normal ECG When compared to the previous EKG of 05 february 2018, rhythm change Referred By: Generic ED Physician Electronically Signed By:MERARI SARABIA
[2022-03-17 13:10] LABS: Hematocrit 42.9 % (42.0-52.0); Hemoglobin 13.2 g/dl (14.0-18.0); Mean Corpuscular HGB Conc 30.8 g/dl (31.0-36.0); Mean Corpuscular Hemoglobin 27.2 pg (27.0-33.0); Mean Corpuscular Volume 88.5 fL (80.0-98.0); Mean Platelet Volume 10.6 fL (9.4-12.4); Platelet Count 183 X10*3/uL (160-400); Red Blood Count 4.85 X10*6/uL (4.60-5.80); Red Cell Distribution Width 16.6 % (11.0-16.0); White Blood Count 6.8 X10*3/uL (4.8-10.8)
[2022-03-17 13:29] LABS: Anion Gap 13 (12-20); Blood Urea Nitrogen 44 mg/dL (9-16); Calcium 9.3 mg/dL (8.4-10.2); Carbon Dioxide 27 mmol/L (22-29); Chloride 108 mmol/L (96-108); Creatinine Clr Calc Pharmacy 27.3; Estimated Glomerular Filt Rate 26; Glucose Random 106 mg/dL (60-115); Potassium 5.3 mmol/L (3.3-5.1); Sodium 143 mmol/L (135-145)
[2022-03-17 13:34] LABS: Troponin-I High Sensitivity 6.4 ng/L (<3.5-35.0)
[2022-03-17 21:21] VITALS: BP 158/57; PULSE 58; RESP 16; TEMP 36.7; O2SAT 96
--- NOTE | 2022-03-17 21:40 | ED_ITS ---
HPI - Dizziness General Chief Complaint: Dizziness Stated Complaint: dizzy Time Seen by Provider: 03/17/22 21:26 Source: patient Mode of arrival: ambulatory Limitations: no limitations History of Present Illness HPI Narrative: Patient comes to the emergency room complaining of dizziness and headache for about 3 days. Patient states that he describes dizziness as moving his head and feeling balance and the room spinning. Patient states that this moment he does not have any dizziness. Patient had headache earlier today, patient took Tylenol approximately 12 hours ago and his headache subsided. Patient denies chest pain, no shortness of breath. Patient states he has had multiple episodes of loose stool, no diarrhea. Related Data Home Medications Medication Instructions Recorded Confirmed atorvastatin 40 mg tablet 40 mg PO BEDTIME 01/07/21 03/01/22 cholecalciferol (vitamin D3) 25 25 mcg PO DAILY 01/07/21 03/01/22 mcg (1,000 unit) capsule fenofibrate 160 mg tablet 160 mg PO DAILY 01/07/21 03/01/22 gabapentin 100 mg capsule 100 mg PO BEDTIME 01/07/21 03/01/22 metoprolol tartrate 100 mg tablet 100 mg PO BID 01/07/21 03/01/22 cetirizine 5 mg tablet 5 mg PO DAILY 07/06/21 03/01/22 lancets (OneTouch UltraSoft #100 ea 07/06/21 03/01/22 Lancets) Previous Rx's Medication Instructions Recorded warfarin 5 mg tablet 5 mg PO DAILY #90 tab 09/15/20 meclizine 25 mg tablet 25 mg PO TID PRN 10 Days #30 tab 03/17/22 Allergies Allergy/AdvReac Type Severity Reaction Status Date / Time lisinopril [LISINOPRIL] Allergy Severe ACUTE Verified 03/16/22 09:58 KIDNEY INJURY oxycodone [Percocet] Allergy Intermediate agitation Verified 03/16/22 09:58 codeine [CODEINE] Allergy Unknown AGITATION Verified 03/16/22 09:58 morphine [MORPHINE] Allergy Unknown AGITATION, Verified 03/16/22 09:58 confusion From PERCOCET Allergy Unknown AGITATION Uncoded 03/01/22 10:07 Review of Systems Review of Systems: Constitutional : No Weight loss, No Fever, No Chills, No Night Sweats, No Fatigue, No Malaise ENT/Mouth : No Hearing loss, No Ear Pain, No Nasal Congestion, No Sinus Pain, No Hoarseness, No sore throat, No Rhinorrhea, No Swallowing Difficulty Eyes: No Eye Pain, No Swelling, No Redness, No Foreign Body, No Discharge, No Vision Changes Cardiovascular : No Chest Pain, No SOB, No Dyspnea on Exertion, No Orthopnea, No Edema, No Palpitations Respiratory : No Cough, No Sputum, No Wheezing, No Smoke Exposure, No Dyspnea Gastrointestinal : No Nausea, No Vomiting, No Diarrhea, complaining of multiple soft stool bowel movements, No Constipation, No abdominal Pain, No Hematochezia, No Melena Genitourinary : no irregular bleeding, No Dysuria, No Urinary Frequency, No Hematuria, No Urinary Incontinence, No Urgency, No Flank Pain, No Urinary Flow Changes, No Hesitancy Musculoskeletal : No joint pain, No Myalgias, No Joint Swelling Skin : No Skin Lesions, No rash Neuro : No Weakness, No Numbness, No Paresthesias, No Loss of Consciousness, complaining of dizziness/room spinning occasionally, intermittently, complaining of head pressure/headache which already resolved Psych : No Anxiety/Panic, No Depression, No SI/HI/AH/VH, No Social Issues, Heme/Lymph: No Bruising, No Bleeding,No Lymphadenopathy Endocrine : No Polyuria, No Polydipsia, No Temperature Intolerance PMFSH Past Medical History Medical History Benign prostatic hyperplasia with lower urinary tract symptoms CAD (coronary artery disease) Chronic kidney disease, stage 3 unspecified HTN (hypertension) Paroxysmal atrial fibrillation Personal history of nicotine dependence Sinus bradycardia Surgical History History of esophagogastroduodenoscopy (EGD) Hx of cardiac cath Hx of cataract extraction Hx of colonoscopy Hx of cystoscopy Stented coronary artery Family History Family History Mother CAD (coronary artery disease) Diabetes HTN (hypertension) Father CAD (coronary artery disease) Diabetes HTN (hypertension) Social History Social History Alcohol intake: former Patient Tobacco Use Status: Former Tobacco user Quit Date: 2011 Years Smoked: 40 +/- Advance Directives: No Advance Directives Information Provided: Yes Physical Exam Vital Signs: Vital Signs: Last Vital Signs Temp 98.0 F 03/17/22 21:21 Pulse 53 03/17/22 22:18 Resp 16 03/17/22 22:15 BP 160/79 H 03/17/22 22:18 Pulse Ox 96 03/17/22 22:15 BMI result Body Mass Index 31.4 Const: Other: Appearance: Alert. Oriented X3. No acute distress. Well-appearing Eyes: Pupils on the right round and reactive to light. Chronic opacification/cataract in the left eye ENT: Pharynx normal. Neck: Normal inspection. Neck supple. No lymph nodes noted. No crepitus CVS: Normal heart rate and rhythm. Pulses normal. Normal S1 and S2 Respiratory: No respiratory distress. Breath sounds normal. No Wheezing. No rales Abdomen: Soft and nontender. No rigidity. No distention. Skin: Skin warm and dry. Normal skin color. Normal skin turgor. Extremities: No lower extremity edema. No Lacerations. No Rash Neuro: Oriented X 3. No motor deficit. No sensory deficit. Moving all extremities. No slurred speech. CN 2 through 12 grossly intact Psych: calm, cooperative, normal affect Course Course Course Narrative: Patient's symptoms are likely secondary to BPPV. However, it was noted the patient is also bradycardic. Per patient's medical history this is chronic. Patient does take 100 mg of metoprolol tartrate b.i.d. Head CT negative. Patient feeling much better after a dose of meclizine. No dizziness MDM - Dizziness Lab Data Result diagrams: 03/17/22 12:54 03/17/22 12:54 Labs: Lab Results 03/17/22 03/17/22 03/17/22 Range/Units 12:54 12:54 12:54 WBC 6.8 (4.8-10.8) X10*3/uL RBC 4.85 (4.60-5.80) X10*6/uL Hgb 13.2 L (14.0-18.0) g/dl Hct 42.9 (42.0-52.0) % MCV 88.5 (80.0-98.0) fL MCH 27.2 (27.0-33.0) pg MCHC 30.8 L (31.0-36.0) g/dl RDW 16.6 H (11.0-16.0) % Plt Count 183 (160-400) X10*3/uL MPV 10.6 (9.4-12.4) fL Absolute Nucleated RBC 0.000 (0.0-0.012) X10*3/uL Nucleated RBC % (auto) 0.0 (0.0-0.2) /100WBC Sodium 143 (135-145) mmol/L Potassium 5.3 H (3.3-5.1) mmol/L Chloride 108 (96-108) mmol/L Carbon Dioxide 27 (22-29) mmol/L Anion Gap 13 (12-20) BUN 44 H (9-16) mg/dL Creatinine 2.49 H (0.5-1.4) mg/dL Estim Creat Clear Calc 27.3 Estimated GFR 26 Random Glucose 106 (60-115) mg/dL Calcium 9.3 (8.4-10.2) mg/dL Troponin I High Sens 6.4 (<3.5-35.0) ng/L Imaging Data CT scan - head: Radiologist's impression: FINDINGS: There is no evidence of acute intracranial hemorrhage or territorial infarction. No abnormal mass effect or midline shift is seen. [place] to white matter differentiation is well preserved. No extra-axial fluid collections are identified. There is generalized global volume loss. There is mild prominence of the ventricles and the sulci . There is mild hypodensity of the periventricular white matter due to chronic small vessel ischemic disease. There are vascular calcifications of the internal carotid arteries bilaterally. The osseous structures and soft tissues are normal. The mastoid air cells and visualized portions of the paranasal sinuses are well aerated. ? CT/CT head/brain wo con IMPRESSION: No acute intracranial pathology. Discharge Plan Discharge Clinical Impression: Benign paroxysmal positional vertigo Patient Disposition: Home, Self-Care Instructions: Benign Paroxysmal Positional Vertigo (ED) Additional Instructions: Please follow-up with your primary care physician tomorrow. If you have any worsening or new symptoms, please return to the emergency room or call 911 Prescriptions: New meclizine 25 mg tablet 25 mg PO TID PRN (Reason: dizziness) 10 Days Qty: 30 0RF No Action (DME) lancets [OneTouch UltraSoft Lancets] Misc See Rx Instructions ea Not Applicable BID Qty: 100 0RF Rx Instructions: As directed cetirizine 5 mg tablet 5 mg PO DAILY 0RF warfarin 5 mg tablet 5 mg PO DAILY Qty: 90 0RF Protocol: Dose Management Condition: Monday (Week One) Dose/Route: 2.5 mg Instruction: 0.5 x 5 mg tablets Condition: Monday Dose/Route: 5 mg Instruction: 1 x 5 mg tablet Condition: Monday Dose/Route: 2.5 mg Instruction: 0.5 x 5 mg tablets Condition: Monday Dose/Route: 5 mg Instruction: 1 x 5 mg tablet Condition: Dose/Route: 2.5 mg Instruction: 0.5 x 5 mg tablets Condition: Monday Dose/Route: 5 mg Instruction: 1 x 5 mg tablet Condition: Monday Dose/Route: 2.5 mg Instruction: 0.5 x 5 mg tablets Condition: Monday (Week Two) Dose/Route: 2.5 mg Instruction: 0.5 x 5 mg tab lets Condition: Monday Dose/Route: 5 mg Instruction: 1 x 5 mg tablet Condition: Monday Dose/Route: 2.5 mg Instruction: 0.5 x 5 mg tablets Condition: Monday Dose/Route: 5 mg Instruction: 1 x 5 mg tablet Condition: Dose/Route: 2.5 mg Instruction: 0.5 x 5 mg tablets Condition: Monday Dose/Route: 5 mg Instruction: 1 x 5 mg tablet Condition: Monday Dose/Route: 2.5 mg Instruction: 0.5 x 5 mg tablets Protocol Text: Adjustment Start Date: Monday03/16/22 INR Value: 2.9 INR Date: 03/16/22 Recheck Date: 04/13/22 Rx Instructions: 5MG X3, 2.5MGX4 atorvastatin 40 mg tablet 40 mg PO BEDTIME 0RF fenofibrate 160 mg tablet 160 mg PO DAILY 0RF gabapentin 100 mg capsule 100 mg PO BEDTIME 0RF Rx Instructions: 2 capsules metoprolol tartrate 100 mg tablet 100 mg PO BID 0RF cholecalciferol (vitamin D3) 25 mcg (1,000 unit) capsule 25 mcg PO DAILY 0RF
[2022-03-17 22:15] VITALS: BP 149/75; PULSE 58; PULSE 60; RESP 16; O2SAT 96
[2022-03-17 22:16] VITALS: BP 157/69; PULSE 54
[2022-03-17 22:18] VITALS: BP 160/79; PULSE 53
[2022-03-17] MEDS: Meclizine HCl 25 MG TABLET 50 MG PO (22:41)
== END 2022-03-18 00:09 | disposition home or self-care (01) ==
PROVIDERS: Emergency Provider Emergency Medicine; PCP Family Medicine
DX: H81.10 Benign paroxysmal vertigo, unspecified ear (principal); I12.9 Hypertensive chronic kidney disease with stage 1 through stage 4 chronic kidney disease, or unspecified chronic kidney disease; N18.30 Chronic kidney disease, stage 3 unspecified; I48.0 Paroxysmal atrial fibrillation; Z79.899 Other long term (current) drug therapy
CPT/HCPCS: 36415; 70450; 80048; 84484; 85027; 93005; 99283; 99284

== ENCOUNTER → 2022-03-23 10:19 | Outpatient (BNVA) | payer MEDICARE, SELFPAY | PROVIDERS: PCP Family Medicine; Referring Provider Family Medicine; Visit Provider Internal Medicine Cardiovascular Disease | DX: I48.91 Unspecified atrial fibrillation (principal); I25.10 Atherosclerotic heart disease of native coronary artery without angina pectoris | CPT/HCPCS: 93005; 99212 ==

== ENCOUNTER → 2022-03-31 10:38 | Outpatient (BNVA) | payer MEDICARE, SELFPAY | PROVIDERS: PCP Family Medicine; Visit Provider Internal Medicine | DX: I48.0 Paroxysmal atrial fibrillation (principal); Z79.01 Long term (current) use of anticoagulants; Z51.81 Encounter for therapeutic drug level monitoring | CPT/HCPCS: 85610; 99211 ==

== ENCOUNTER → 2022-04-07 10:28 | Outpatient (BNVA) | payer MEDICARE, SELFPAY | PROVIDERS: PCP Family Medicine; Visit Provider Internal Medicine | DX: I48.0 Paroxysmal atrial fibrillation (principal); Z79.01 Long term (current) use of anticoagulants; Z51.81 Encounter for therapeutic drug level monitoring | CPT/HCPCS: 85610; 99211 ==

== ENCOUNTER → 2022-04-11 10:34 | Outpatient (BNVA) | payer MEDICARE, SELFPAY | PROVIDERS: PCP Family Medicine; Visit Provider Internal Medicine | DX: I48.0 Paroxysmal atrial fibrillation (principal); Z79.01 Long term (current) use of anticoagulants; Z51.81 Encounter for therapeutic drug level monitoring | CPT/HCPCS: 85610; 99211 ==

== ENCOUNTER → 2022-04-13 11:16 | Outpatient (REF) | payer OTHER, SELFPAY ==
--- NOTE | 2022-04-13 11:20 | HM_ITS ---
Conclusion: 1. Patient was monitored for total period of 2 days 2. Baseline was normal sinus rhythm with average heart rate 61 beats per minute with frequent sinus bradycardia 3. Intermittent episodes of atrial fibrillation with total burden of 36% with longest episode lasting 17 hours and 29 minutes 4. No significant pauses noted 5. Occasional PACs noted 6. No patient reported events MTDD
== END ==
LOC: HO.CARD 11:16
PROVIDERS: PCP Family Medicine; Visit Provider Internal Medicine Cardiovascular Disease
DX: I48.91 Unspecified atrial fibrillation (principal)
CPT/HCPCS: 93242

== ENCOUNTER 2022-04-14 11:21 | Outpatient (REF) | payer OTHER, SELFPAY ==
--- NOTE | ~2022-04-14 | CT_ITS ---
EXAMINATION: CT CHEST WITHOUT CONTRAST CLINICAL INFORMATION: Thoracic aortic aneurysm without rupture. COMPARISON: 03/05/2021. TECHNIQUE: Multidetector volumetric CT imaging of the chest was done. Axial MIP volume rendering provided. Sagittal and coronal reformatted images were obtained. This CT examination was performed using dose optimization techniques as appropriate, variously including the following: *Automated exposure control *Adjustment of mA and/or kV according to patient size (this includes techniques or standardized protocols for targeted exams where dose is matched to indication/reason for exam; i.e. extremities or head) *Use of iterative reconstruction technique DLP: 154 mGy-cm FINDINGS: LUNGS: The central airways are patent. No dense consolidation. Minimal bibasilar atelectasis. No pneumothorax. Unchanged 0.3 cm left upper lobe nodule on series 5 image 93. No new pulmonary nodule. MEDIASTINUM: Normal heart size with coronary artery calcifications. No pericardial effusion. No mediastinal lymphadenopathy. Moderate atherosclerotic calcification throughout the thoracic aorta. There is normal caliber of the ascending thoracic aorta measuring 3.7 cm. At the distal aortic arch the aorta measures 4.1 cm, unchanged from prior. The proximal aspect of the descending thoracic aorta measures 4 cm, unchanged from prior. Calcified and noncalcified plaque is present. PLEURA: There is no pleural effusion. No pleural mass or thickening. AXILLA: No lymphadenopathy. UPPER ABDOMEN: Unremarkable. OSSEOUS STRUCTURES: Degenerative changes throughout the spine. No acute or suspicious osseous abnormality. CT/CT chest wo con IMPRESSION: 1. Unchanged appearance of the thoracic aortic aneurysm involving the distal aortic arch and descending thoracic aorta. This measures up to 4.1 cm. 2. Unchanged 0.3 cm left upper lobe pulmonary nodule, suggesting benign etiology. Fleischner guidelines were followed.
== END 2022-04-14 11:22 | disposition home or self-care (01) ==
LOC: HO.CT 11:21
PROVIDERS: Visit Provider Surgery Vascular Surgery
DX: I71.2 Thoracic aortic aneurysm, without rupture (principal)
CPT/HCPCS: 71250

== ENCOUNTER → 2022-04-20 10:25 | Outpatient (BNVA) | payer OTHER, SELFPAY | PROVIDERS: PCP Family Medicine; Visit Provider Internal Medicine | DX: I48.0 Paroxysmal atrial fibrillation (principal); Z79.01 Long term (current) use of anticoagulants; Z51.81 Encounter for therapeutic drug level monitoring | CPT/HCPCS: 85610; 99211 ==

== ENCOUNTER → 2022-05-04 11:25 | Outpatient (BNVA) | payer OTHER, SELFPAY | PROVIDERS: PCP Family Medicine; Visit Provider Internal Medicine | DX: I48.0 Paroxysmal atrial fibrillation (principal); Z79.01 Long term (current) use of anticoagulants; Z51.81 Encounter for therapeutic drug level monitoring | CPT/HCPCS: 85610; 99211 ==

== ENCOUNTER → 2022-05-18 10:33 | Outpatient (BNVA) | payer OTHER, SELFPAY | PROVIDERS: PCP Family Medicine; Visit Provider Internal Medicine | DX: I48.0 Paroxysmal atrial fibrillation (principal); Z79.01 Long term (current) use of anticoagulants; Z51.81 Encounter for therapeutic drug level monitoring | CPT/HCPCS: 85610; 99211 ==

== ENCOUNTER → 2022-05-19 09:37 | Outpatient (BNVA) | payer OTHER, SELFPAY | PROVIDERS: PCP Family Medicine; Referring Provider Family Medicine; Visit Provider Internal Medicine Cardiovascular Disease | DX: I48.91 Unspecified atrial fibrillation (principal); I25.10 Atherosclerotic heart disease of native coronary artery without angina pectoris | CPT/HCPCS: 93005; 99212 ==

== ENCOUNTER → 2022-05-26 11:16 | Outpatient (BNVA) | payer OTHER, SELFPAY | PROVIDERS: PCP Family Medicine; Visit Provider Surgery Vascular Surgery | DX: I71.2 Thoracic aortic aneurysm, without rupture (principal); Z79.01 Long term (current) use of anticoagulants; Z79.899 Other long term (current) drug therapy | CPT/HCPCS: 99212 ==

== ENCOUNTER → 2022-06-15 10:21 | Outpatient (BNVA) | payer OTHER, SELFPAY | PROVIDERS: PCP Family Medicine; Visit Provider Internal Medicine | DX: I48.0 Paroxysmal atrial fibrillation (principal); Z79.01 Long term (current) use of anticoagulants; Z51.81 Encounter for therapeutic drug level monitoring | CPT/HCPCS: 85610; 99211 ==

== ENCOUNTER → 2022-07-13 10:34 | Outpatient (BNVA) | payer OTHER, SELFPAY | PROVIDERS: PCP Family Medicine; Visit Provider Internal Medicine | DX: I48.0 Paroxysmal atrial fibrillation (principal); Z79.01 Long term (current) use of anticoagulants; Z51.81 Encounter for therapeutic drug level monitoring | CPT/HCPCS: 85610; 99211 ==

== ENCOUNTER 2022-08-05 09:01 | Outpatient (REF) | payer OTHER, SELFPAY ==
[2022-08-05 10:03] LABS: Hematocrit 46.6 % (42.0-52.0); Hemoglobin 14.5 g/dl (14.0-18.0); Mean Corpuscular HGB Conc 31.1 g/dl (31.0-36.0); Mean Corpuscular Hemoglobin 27.2 pg (27.0-33.0); Mean Corpuscular Volume 87.3 fL (80.0-98.0); Mean Platelet Volume 11.3 fL (9.4-12.4); Platelet Count 221 X10*3/uL (160-400); Red Blood Count 5.34 X10*6/uL (4.60-5.80); Red Cell Distribution Width 16.6 % (11.0-16.0); White Blood Count 7.8 X10*3/uL (4.8-10.8)
[2022-08-05 10:29] LABS: Alanine Aminotransferase 21 U/L (0-40); Albumin Level 3.9 g/dL (3.5-5.0); Alkaline Phosphatase 46 U/L (39-117); Anion Gap 17 (12-20); Aspartate Amino Transferase 27 U/L (5-37); Bilirubin Total 0.8 mg/dL (0.0-1.0); Blood Urea Nitrogen 46 mg/dL (9-16); Calcium 9.2 mg/dL (8.4-10.2); Carbon Dioxide 23 mmol/L (22-29); Chloride 108 mmol/L (96-108); Cholesterol 150 mg/dL; Estimated Glomerular Filt Rate 26; Glucose Random 81 mg/dL (60-115); HDL Cholesterol 38 mg/dL; LDL Cholesterol Calculated 87 mg/dl; Potassium 5.2 mmol/L (3.3-5.1); Sodium 143 mmol/L (135-145); Total Protein 7.1 g/dL (6.5-8.0); Triglycerides 128 mg/dL
[2022-08-05 10:42] LABS: Creatinine Urine 89.02 mg/dL
[2022-08-05 11:01] LABS: Microalbum/Creatinine Ratio Ur 1655.8 ug/mg cr; Total Protein Urine Random 205 mg/dL (<12)
== END 2022-08-05 09:02 | disposition home or self-care (01) ==
LOC: HO.LAB 09:01
PROVIDERS: Absent Provider Internal Medicine Hypertension Specialist; PCP Family Medicine; Visit Provider Family Medicine
DX: E78.5 Hyperlipidemia, unspecified (principal); I25.9 Chronic ischemic heart disease, unspecified; I12.9 Hypertensive chronic kidney disease with stage 1 through stage 4 chronic kidney disease, or unspecified chronic kidney disease; N18.4 Chronic kidney disease, stage 4 (severe); E11.22 Type 2 diabetes mellitus with diabetic chronic kidney disease
CPT/HCPCS: 36415; 80053; 80061; 82043; 84156; 85027

== ENCOUNTER → 2022-08-10 10:20 | Outpatient (BNVA) | payer OTHER, SELFPAY | PROVIDERS: PCP Family Medicine; Visit Provider Internal Medicine | DX: I48.0 Paroxysmal atrial fibrillation (principal); Z79.01 Long term (current) use of anticoagulants; Z51.81 Encounter for therapeutic drug level monitoring | CPT/HCPCS: 85610; 99211 ==

== ENCOUNTER 2022-09-07 09:00 | Outpatient (REF) | payer OTHER, SELFPAY ==
--- NOTE | ~2022-09-07 | MM_ITS ---
EXAMINATION: MM DIAGNOSTIC DIGITAL BREAST TOMOSYNTHESIS, BILATERAL US DIAGNOSTIC ULTRASOUND BREAST, RIGHT CLINICAL INFORMATION: 72-year-old male with 2 month history tenderness right retroareolar region, mild fullness. No discharge. No prior breast imaging. COMPARISON: No prior mammography or ultrasound. Comparison made with CT chest 04/14/2022, 03/05/2021, 10/23/2019. TECHNIQUE: Digital breast tomosynthesis is performed in both the craniocaudal and mediolateral oblique views along with computer-aided detection (CAD). Synthesized 2D images are generated from the tomosynthesis. Ultrasound right breast is targeted to the retroareolar and periareolar region. Grayscale imaging and color Doppler are performed without and with harmonics. FINDINGS: There are scattered areas of fibroglandular density (ACR BI-RADS breast composition Category b). There is mild to moderate gynecomastia type pattern retroareolar right breast without mass or architectural abnormality. Left breast unremarkable. Neither breast has abnormal calcifications. The axilla and skin contours are unremarkable. No skin thickening or coarsening of the stromal markings. The right gynecomastia is also suggested in retrospect on chest CT 04/14/2022. Ultrasound demonstrates gynecomastia type pattern on ultrasound retroareolar breast without mass or architectural abnormality. No skin thickening or edema tracking in soft tissue planes. Results are discussed with the patient at time of visit, using an step down specialist. MM/MM tomosynthesis diagnostic BI IMPRESSION: -Right mild to moderate gynecomastia. -Left breast unremarkable ASSESSMENT: BI-RADS 2: Benign RECOMMENDATION: Patient may be managed based on the clinical impression as needed.
== END 2022-09-07 09:01 | disposition home or self-care (01) ==
LOC: HO.MAMMO 09:00
PROVIDERS: PCP Family Medicine; Visit Provider Family Medicine
DX: N64.4 Mastodynia (principal); I48.0 Paroxysmal atrial fibrillation; Z51.81 Encounter for therapeutic drug level monitoring; Z79.01 Long term (current) use of anticoagulants
CPT/HCPCS: 76642; 77062; 77066; 85610; 99211

== ENCOUNTER 2022-09-08 13:01 | Outpatient (REF) | payer OTHER, SELFPAY ==
--- NOTE | ~2022-09-08 | US_ITS ---
EXAMINATION: US RETROPERITONEAL LIMITED (RENAL ONLY) CLINICAL INFORMATION: Calculus of kidney. COMPARISON: Ultrasound retroperitoneal limited (renal only) 07/30/2021 TECHNIQUE: Real-time imaging of the kidneys. FINDINGS: RIGHT KIDNEY: 8.4 x 4.2 x 5.4 cm (SAG x AP x TRV). The kidney is normal in contour and echogenicity. Renal cortical thickness is normal. No calculi or focal parenchymal lesions. No hydronephrosis. LEFT KIDNEY: 9.4 x 3.5 x 4.3 cm (SAG x AP x TRV). The kidney is normal in size, contour, and echogenicity. Renal cortical thickness is normal. No renal calculi or hydronephrosis. Anechoic cysts are seen, largest 1 cm. ADDITIONAL FINDINGS: A gallstone is seen. US/US renal BI IMPRESSION: No calculi or hydronephrosis. Both kidneys are again noted to be diminutive.
== END 2022-09-08 13:02 | disposition home or self-care (01) ==
LOC: HO.US 13:01
PROVIDERS: Visit Provider Urology
DX: N20.0 Calculus of kidney (principal)
CPT/HCPCS: 76775

== ENCOUNTER → 2022-09-08 13:45 | Outpatient (REF) | payer OTHER, SELFPAY ==
--- NOTE | 2022-09-08 13:49 | HM_ITS ---
Conclusion: 1. Patient was monitored for total period of 3 days 2. Baseline rhythm was atrial fibrillation with average heart of 101 beats per minute within adequate rate control, 62% of time heart rate greater than 100 beats per minute 3. No significant pauses noted 4. Very rare PVCs noted 5. No patient reported symptoms MTDD
== END ==
LOC: HO.CARD 13:45
PROVIDERS: Visit Provider Internal Medicine Cardiovascular Disease
DX: I48.91 Unspecified atrial fibrillation (principal)
CPT/HCPCS: 93242

== ENCOUNTER → 2022-09-14 10:42 | Outpatient (BNVA) | payer OTHER, SELFPAY | PROVIDERS: PCP Family Medicine; Visit Provider Internal Medicine | DX: I48.0 Paroxysmal atrial fibrillation (principal); Z79.01 Long term (current) use of anticoagulants; Z51.81 Encounter for therapeutic drug level monitoring | CPT/HCPCS: 85610; 99211 ==

== ENCOUNTER 2022-09-24 09:38 | Outpatient (REF) | payer OTHER, SELFPAY ==
[2022-09-24 11:09] LABS: Digoxin 0.3 ng/mL (0.8-2.0)
== END 2022-09-24 09:39 | disposition home or self-care (01) ==
LOC: HO.LAB 09:38
PROVIDERS: Physician Assistant; PCP Family Medicine; Visit Provider Internal Medicine Cardiovascular Disease
DX: I48.91 Unspecified atrial fibrillation (principal); Z79.899 Other long term (current) drug therapy
CPT/HCPCS: 36415; 80162

== ENCOUNTER → 2022-09-28 10:27 | Outpatient (BNVA) | payer OTHER, SELFPAY | PROVIDERS: PCP Family Medicine; Visit Provider Internal Medicine | DX: I48.0 Paroxysmal atrial fibrillation (principal); Z79.01 Long term (current) use of anticoagulants; Z51.81 Encounter for therapeutic drug level monitoring | CPT/HCPCS: 85610; 99211 ==

== ENCOUNTER → 2022-10-19 10:30 | Outpatient (BNVA) | payer OTHER, SELFPAY | PROVIDERS: PCP Family Medicine; Visit Provider Internal Medicine | DX: N40.0 Benign prostatic hyperplasia without lower urinary tract symptoms (principal); N20.0 Calculus of kidney; I48.0 Paroxysmal atrial fibrillation; Z79.01 Long term (current) use of anticoagulants; Z51.81 Encounter for therapeutic drug level monitoring | CPT/HCPCS: 85610; 99211; 99212 ==

== ENCOUNTER → 2022-11-02 10:34 | Outpatient (BNVA) | payer OTHER, SELFPAY | PROVIDERS: PCP Family Medicine; Visit Provider Internal Medicine | DX: I48.0 Paroxysmal atrial fibrillation (principal); Z51.81 Encounter for therapeutic drug level monitoring; Z79.01 Long term (current) use of anticoagulants | CPT/HCPCS: 85610; 99211 ==

== ENCOUNTER → 2022-11-10 10:18 | Outpatient (BNVA) | payer OTHER, SELFPAY | PROVIDERS: PCP Family Medicine; Referring Provider Family Medicine; Visit Provider Internal Medicine Cardiovascular Disease | DX: I48.91 Unspecified atrial fibrillation (principal); I25.10 Atherosclerotic heart disease of native coronary artery without angina pectoris | CPT/HCPCS: 93005; 99212 ==

== ENCOUNTER → 2022-11-16 10:16 | Outpatient (BNVA) | payer OTHER, SELFPAY | PROVIDERS: PCP Family Medicine; Visit Provider Internal Medicine | DX: I48.0 Paroxysmal atrial fibrillation (principal); Z79.01 Long term (current) use of anticoagulants; Z51.81 Encounter for therapeutic drug level monitoring | CPT/HCPCS: 85610; 99211 ==

== ENCOUNTER → 2022-12-07 10:43 | Outpatient (BNVA) | payer OTHER, SELFPAY | PROVIDERS: PCP Family Medicine; Visit Provider Internal Medicine | DX: I48.0 Paroxysmal atrial fibrillation (principal); Z79.01 Long term (current) use of anticoagulants; Z51.81 Encounter for therapeutic drug level monitoring | CPT/HCPCS: 85610; 99211 ==

== ENCOUNTER 2022-12-14 12:58 | Outpatient (REF) | payer OTHER, SELFPAY ==
--- NOTE | ~2022-12-14 | MR_ITS ---
EXAMINATION: MR BRAIN WITHOUT CONTRAST CLINICAL INFORMATION: Dizziness and vertigo. TIA. COMPARISON: Head CT dated 03/17/2022. TECHNIQUE: Multiplanar, multisequence imaging of the brain was performed without contrast. FINDINGS: No diffusion abnormalities are identified to suggest an acute infarct. The ventricles are normal in size. No mass effect or midline shift is seen. Mild to moderate chronic white matter microangiopathic changes evident with generalized parenchymal volume loss and concordant ex vacuo dilatation of the ventricles. Small chronic infarct visible in the anterosuperior left frontal lobe. No extra-axial fluid collections are seen. There are scattered small chronic lacunar infarcts in the cerebellum. The brainstem is normal. The gradient refocused acquisition is normal. The craniovertebral junction, marrow signal, and midline structures are normal. The major intracranial flow voids at the level of the [place] are preserved. The dural venous sinus flow voids are maintained. The mastoid air cells are well aerated. There is a small proteinaceous retention cyst in the left maxillary antrum. 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 MR/MR head/brain wo con IMPRESSION: No acute intracranial process. 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
== END 2022-12-14 12:59 | disposition home or self-care (01) ==
LOC: HO.MRI 12:58
PROVIDERS: PCP Family Medicine; Visit Provider Family Medicine
DX: R42 Dizziness and giddiness (principal); I25.9 Chronic ischemic heart disease, unspecified
CPT/HCPCS: 70551

== ENCOUNTER → 2022-12-21 10:39 | Outpatient (BNVA) | payer OTHER, SELFPAY | PROVIDERS: PCP Family Medicine; Visit Provider Internal Medicine | DX: I48.0 Paroxysmal atrial fibrillation (principal); Z79.01 Long term (current) use of anticoagulants; Z51.81 Encounter for therapeutic drug level monitoring | CPT/HCPCS: 85610; 99211 ==

== ENCOUNTER → 2022-12-26 10:42 | Outpatient (BNVA) | payer OTHER, SELFPAY | PROVIDERS: PCP Family Medicine; Visit Provider Internal Medicine | DX: I48.0 Paroxysmal atrial fibrillation (principal); Z79.01 Long term (current) use of anticoagulants; Z51.81 Encounter for therapeutic drug level monitoring | CPT/HCPCS: 85610; 99211 ==

== ENCOUNTER → 2023-01-02 10:31 | Outpatient (BNVA) | payer OTHER, SELFPAY | PROVIDERS: PCP Family Medicine; Visit Provider Internal Medicine | DX: I48.0 Paroxysmal atrial fibrillation (principal); Z79.01 Long term (current) use of anticoagulants; Z51.81 Encounter for therapeutic drug level monitoring | CPT/HCPCS: 85610; 99211 ==

== ENCOUNTER → 2023-01-16 10:32 | Outpatient (BNVA) | payer OTHER, SELFPAY | PROVIDERS: PCP Family Medicine; Visit Provider Internal Medicine | DX: I48.0 Paroxysmal atrial fibrillation (principal); Z79.01 Long term (current) use of anticoagulants; Z51.81 Encounter for therapeutic drug level monitoring | CPT/HCPCS: 85610; 99211 ==

== ENCOUNTER → 2023-01-20 10:36 | Outpatient (BNVA) | payer OTHER, SELFPAY | PROVIDERS: PCP Family Medicine; Visit Provider Internal Medicine | DX: I48.0 Paroxysmal atrial fibrillation (principal); Z79.01 Long term (current) use of anticoagulants; Z51.81 Encounter for therapeutic drug level monitoring | CPT/HCPCS: 85610; 99211 ==

== ENCOUNTER 2023-01-24 11:41 | Outpatient (REF) | payer OTHER, SELFPAY ==
[2023-01-24 13:42] LABS: Anion Gap 11 (12-20); Blood Urea Nitrogen 39 mg/dL (9-16); Calcium 8.6 mg/dL (8.4-10.2); Carbon Dioxide 28 mmol/L (22-29); Chloride 109 mmol/L (96-108); Estimated Glomerular Filt Rate 33; Glucose Random 132 mg/dL (60-115); Potassium 4.7 mmol/L (3.3-5.1); Sodium 143 mmol/L (135-145)
== END 2023-01-24 11:42 | disposition home or self-care (01) ==
LOC: HO.LAB 11:41
PROVIDERS: PCP Family Medicine; Visit Provider General Practice
DX: E87.5 Hyperkalemia (principal)
CPT/HCPCS: 36415; 80048

== ENCOUNTER → 2023-01-31 12:55 | Outpatient (BNVA) | payer OTHER, SELFPAY | PROVIDERS: PCP Family Medicine; Visit Provider Internal Medicine | DX: I48.0 Paroxysmal atrial fibrillation (principal); Z79.01 Long term (current) use of anticoagulants; Z51.81 Encounter for therapeutic drug level monitoring | CPT/HCPCS: 85610; 99211 ==

== ENCOUNTER → 2023-02-10 10:30 | Outpatient (BNVA) | payer OTHER, SELFPAY | PROVIDERS: PCP Family Medicine; Visit Provider Internal Medicine | DX: I48.0 Paroxysmal atrial fibrillation (principal); Z79.01 Long term (current) use of anticoagulants; Z51.81 Encounter for therapeutic drug level monitoring | CPT/HCPCS: 85610; 99211 ==

== ENCOUNTER → 2023-02-22 10:32 | Outpatient (BNVA) | payer OTHER, SELFPAY | PROVIDERS: PCP Family Medicine; Visit Provider Internal Medicine | DX: I48.0 Paroxysmal atrial fibrillation (principal); Z79.01 Long term (current) use of anticoagulants; Z51.81 Encounter for therapeutic drug level monitoring | CPT/HCPCS: 85610; 99211 ==

== ENCOUNTER → 2023-03-08 10:34 | Outpatient (BNVA) | payer OTHER, SELFPAY | PROVIDERS: PCP Family Medicine; Visit Provider Internal Medicine | DX: I48.0 Paroxysmal atrial fibrillation (principal); Z79.01 Long term (current) use of anticoagulants; Z51.81 Encounter for therapeutic drug level monitoring | CPT/HCPCS: 85610; 99211 ==

== ENCOUNTER 2023-03-09 12:55 | Outpatient (REF) | payer OTHER, SELFPAY | END 2023-03-09 12:56 | disposition home or self-care (01) | LOC: HO.SH 12:55 | PROVIDERS: Visit Provider Family Medicine | DX: Z01.118 Encounter for examination of ears and hearing with other abnormal findings (principal); H93.13 Tinnitus, bilateral | CPT/HCPCS: 92557; 92567; 92625 ==

== ENCOUNTER → 2023-03-24 10:30 | Outpatient (BNVA) | payer OTHER, SELFPAY | PROVIDERS: PCP Family Medicine; Visit Provider Internal Medicine | DX: I48.0 Paroxysmal atrial fibrillation (principal); Z79.01 Long term (current) use of anticoagulants; Z51.81 Encounter for therapeutic drug level monitoring | CPT/HCPCS: 85610; 99211 ==

== ENCOUNTER → 2023-04-24 11:13 | Outpatient (BNVA) | payer OTHER, SELFPAY | PROVIDERS: PCP Family Medicine; Visit Provider Internal Medicine | DX: I48.0 Paroxysmal atrial fibrillation (principal); Z79.01 Long term (current) use of anticoagulants; Z51.81 Encounter for therapeutic drug level monitoring | CPT/HCPCS: 85610; 99211 ==

== ENCOUNTER → 2023-05-08 10:10 | Outpatient (BNVA) | payer OTHER, SELFPAY | PROVIDERS: PCP Family Medicine; Visit Provider Internal Medicine | DX: I48.0 Paroxysmal atrial fibrillation (principal); Z79.01 Long term (current) use of anticoagulants; Z51.81 Encounter for therapeutic drug level monitoring | CPT/HCPCS: 85610; 99211 ==

== ENCOUNTER → 2023-05-11 10:46 | Outpatient (BNVA) | payer OTHER, SELFPAY | PROVIDERS: PCP Family Medicine; Referring Provider Family Medicine; Visit Provider Internal Medicine Cardiovascular Disease | DX: I48.20 Chronic atrial fibrillation, unspecified (principal); I25.10 Atherosclerotic heart disease of native coronary artery without angina pectoris; Z79.01 Long term (current) use of anticoagulants; Z79.899 Other long term (current) drug therapy | CPT/HCPCS: 93005; 99212 ==

== ENCOUNTER 2023-05-17 11:19 | Outpatient (REF) | payer OTHER, SELFPAY ==
[2023-05-17 12:09] LABS: Anion Gap 8 (12-20); Blood Urea Nitrogen 37 mg/dL (9-16); Carbon Dioxide 26 mmol/L (22-29); Chloride 108 mmol/L (96-108); Estimated Glomerular Filt Rate 33; Glucose Random 160 mg/dL (60-115); Potassium 4.5 mmol/L (3.3-5.1); Sodium 137 mmol/L (135-145)
[2023-05-17 15:18] LABS: Digoxin 0.2 ng/mL (0.8-2.0)
== END 2023-05-17 11:20 | disposition home or self-care (01) ==
LOC: HO.LAB 11:19
PROVIDERS: Surgery Vascular Surgery; PCP Family Medicine; Visit Provider Internal Medicine Cardiovascular Disease
DX: I48.20 Chronic atrial fibrillation, unspecified (principal); I48.91 Unspecified atrial fibrillation; I71.20 Thoracic aortic aneurysm, without rupture, unspecified
CPT/HCPCS: 36415; 80048; 80162

== ENCOUNTER → 2023-05-22 10:37 | Outpatient (BNVA) | payer OTHER, SELFPAY | PROVIDERS: PCP Family Medicine; Visit Provider Internal Medicine | DX: I48.0 Paroxysmal atrial fibrillation (principal); Z79.01 Long term (current) use of anticoagulants; Z51.81 Encounter for therapeutic drug level monitoring | CPT/HCPCS: 85610; 99211 ==

== ENCOUNTER 2023-05-29 10:15 | Outpatient (AMB) | payer OTHER, SELFPAY ==
--- NOTE | 2023-05-29 10:29 | MHC.OFFVISCO ---
Intake Intake Visit Reasons: Anticoagulation Allergies lisinopril [LISINOPRIL] Allergy (Severe, Verified 05/29/23 10:25) ACUTE KIDNEY INJURY oxycodone [Percocet] Allergy (Intermediate, Verified 05/29/23 10:25) agitation codeine [CODEINE] Allergy (Unknown, Verified 05/29/23 10:25) AGITATION morphine [MORPHINE] Allergy (Unknown, Verified 05/29/23 10:25) AGITATION, confusion From PERCOCET Allergy (Unknown, Uncoded 05/29/23 10:25) AGITATION Medication List - Last Reconciled 05/29/23 by Lisa White RN alcohol swabs (Alcohol Prep Pads) 0 pad topical DIRECTED atorvastatin 80 mg PO QAM blood sugar diagnostic (Constant InsightTouch Ultra Test strips) As directed carbamide peroxide 6.5% (Ear Drops (carbamide peroxide)) 0 drps otic (ears) cetirizine 5 mg PO DAILY PRN cholecalciferol (vitamin D3) 25 mcg PO DAILY digoxin 125 mcg PO DAILY fenofibrate 160 mg PO DAILY fluticasone propionate 50 mcg/actuation 1 spray intranasal DAILY gabapentin 100 mg PO BEDTIME lancets ([employer] UltraSoft Lancets) As directed meclizine 25 mg PO TID PRN 10 days metoprolol tartrate 100 mg PO BID patiromer calcium sorbitex (Veltassa) grams PO warfarin 5 mg See Protocol PO DAILY Nursing Note INR: 2.6- in therapeutic range Medications and supplements reviewed No changes in health, diet, medications, or supplements, Denies any signs and symptoms of bleeding or bruising or clotting. Bleeding, bruising, clotting discussed Nutritional guidance given Dose: 5mg x 6, 7.5mg x 1 F/U INR: 2 weeks Patient and son verbalizes understanding of instructions given Anti-Coag Initial Assessment Social Hx Patient Tobacco Use Status: Former Tobacco user Quit Date: 2011 alcohol intake: former Alcohol intake frequency: does not drink Coding Level of Care Code Est Patient Level 1 Diagnoses Current use of anticoagulant therapy Z79.01 Results AMB INR Fingerstick AMB INR Fingerstick 2.6 Last Edit by Lisa White RN on 05/29/23 10:30 Assessment & Plan Assessment & Plan (1) Current use of anticoagulant therapy: Code(s): 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
[2023-05-30 15:40] LABS: Prothrombin Time Whole Bld POC 30.7 sec (11.1-13.5); ~PT, ~INR - Anti Coag Clinic 2.6 (0.9-1.1)
== END 2023-05-29 10:33 | disposition home or self-care (01) ==
LOC: HO.ACS 10:15
PROVIDERS: PCP Family Medicine; Visit Provider Internal Medicine
DX: Z79.01 Long term (current) use of anticoagulants (principal)

== ENCOUNTER → 2023-05-29 10:15 | Outpatient (BNVA) | payer OTHER, SELFPAY | PROVIDERS: PCP Family Medicine; Visit Provider Internal Medicine | DX: I48.0 Paroxysmal atrial fibrillation (principal); Z79.01 Long term (current) use of anticoagulants; Z51.81 Encounter for therapeutic drug level monitoring | CPT/HCPCS: 85610; 99211 ==

== ENCOUNTER 2023-06-05 15:04 | Outpatient (REF) | payer OTHER, SELFPAY ==
--- NOTE | ~2023-06-05 | CT_ITS ---
EXAMINATION: CT ANGIOGRAM CHEST CLINICAL INFORMATION: Thoracic aortic aneurysm COMPARISON: CT chest 04/14/2022 TECHNIQUE: Multiple axial images were obtained through the chest after the administration of 70 mL of intravenous Omnipaque 350. Images were evaluated on independent dedicated 3-D workstation and 3-D images were reconstructed with concurrent radiologist supervision and subsequently interpreted. This CT examination was performed using dose optimization techniques as appropriate, variously including the following: *Automated exposure control *Adjustment of mA and/or kV according to patient size (this includes techniques or standardized protocols for targeted exams where dose is matched to indication/reason for exam; i.e. extremities or head) *Use of iterative reconstruction technique DLP: 181 mGy-cm FINDINGS: VASCULAR FINDINGS: Heart: Normal in size. Coronary artery calcifications present. Aorta: There is moderate to severe degree of mixed atherosclerotic disease involving the descending thoracic aorta. A lesser extent of the atherosclerotic disease also involves the aortic arch. No dissection or penetrating atheromatous ulcer. Ascending Thoracic Aorta: 3.6 x 3.5 mm Aortic Arch: 2.5 mm; Bovine arch. Descending Thoracic Aorta (at level of main PA): 4.0 x 4.0 mm Distal descending thoracic aorta (at the hiatus): 3.6 x 3.2 mm NONVASCULAR FINDINGS: Thyroid Gland: The visualized thyroid gland is normal. Lymph Nodes: No supraclavicular, axillary, mediastinal or hilar lymphadenopathy is identified. Airways: The trachea and central bronchi are normal. Lungs: No airspace consolidation. No suspicious nodules or masses. Pleura: No pleural effusion. No pneumothorax. Upper Abdomen: Large gallstone measures 2.1 cm. Soft Tissues/Musculoskeletal: There are soft tissue density deep to the area of the suggestive of gynecomastia. Degenerative changes of the thoracic spine. CT/CT angio chest aorta IMPRESSION: Stable size of descending thoracic aortic aneurysm. Furthermore, there is severe noncalcified atherosclerotic plaque involving the distal arch and descending thoracic aorta. No penetrating atheromatous ulcer or dissection. Normal aortic diameters (in millimeters) Ascending aorta: 31+0.16 x age. Descending aorta: 21+0.16 x age. Reference: [employer] Cardiovascular J 2005; 40 (3): 175-178
[2023-06-05] MEDS: iohexoL 350 MG/ML 100 ML INFUS..BTL 70 ML IV (15:59)
[2023-06-07 09:50] LABS: Creatinine POC 1.2 mg/dL (0.5-1.4); GFR POC > 60
== END 2023-06-05 15:05 | disposition home or self-care (01) ==
LOC: HO.CT 15:04
PROVIDERS: PCP Family Medicine; Visit Provider Surgery Vascular Surgery
DX: I71.20 Thoracic aortic aneurysm, without rupture, unspecified (principal)
CPT/HCPCS: 71275; 82565; Q9967

== ENCOUNTER 2023-06-12 10:16 | Outpatient (AMB) | payer OTHER, SELFPAY ==
--- NOTE | 2023-06-12 10:32 | MHC.OFFVISCO ---
Intake Intake Visit Reasons: Anticoagulation Allergies lisinopril [LISINOPRIL] Allergy (Severe, Verified 06/12/23 10:28) ACUTE KIDNEY INJURY oxycodone [Percocet] Allergy (Intermediate, Verified 06/12/23 10:28) agitation codeine [CODEINE] Allergy (Unknown, Verified 06/12/23 10:28) AGITATION morphine [MORPHINE] Allergy (Unknown, Verified 06/12/23 10:28) AGITATION, confusion From PERCOCET Allergy (Unknown, Uncoded 06/12/23 10:28) AGITATION Medication List - Last Reconciled 06/12/23 by Lisa White RN alcohol swabs (Alcohol Prep Pads) 0 pad topical DIRECTED atorvastatin 80 mg PO QAM blood sugar diagnostic ([employer]Touch Ultra Test strips) As directed carbamide peroxide 6.5% (Ear Drops (carbamide peroxide)) 0 drps otic (ears) cetirizine 5 mg PO DAILY PRN cholecalciferol (vitamin D3) 25 mcg PO DAILY digoxin 125 mcg PO DAILY fenofibrate 160 mg PO DAILY fluticasone propionate 50 mcg/actuation 1 spray intranasal DAILY gabapentin 100 mg PO BEDTIME lancets ([employer]uch UltraSoft Lancets) As directed meclizine 25 mg PO TID PRN 10 days metoprolol tartrate 100 mg PO BID patiromer calcium sorbitex (Veltassa) grams PO warfarin 5 mg See Protocol PO DAILY Nursing Note INR: 2.4-in therapeutic range Medications and supplements reviewed- no changes No changes in health, diet, medications, or supplements, Denies any signs and symptoms of bleeding or bruising or clotting. Bleeding, bruising, clotting discussed Nutritional guidance given Dose: 7.5mg x 1, 5mg x 6 F/U INR: 3 weeks Patient and son verbalizes understanding of instructions given Anti-Coag Initial Assessment Social Hx Patient Tobacco Use Status: Former Tobacco user Quit Date: 2011 alcohol intake: former Alcohol intake frequency: does not drink Coding Level of Care Code Est Patient Level 1 Diagnoses Current use of anticoagulant therapy Z79.01 Results AMB INR Fingerstick AMB INR Fingerstick 2.4 Last Edit by Lisa White RN on 06/12/23 10:33 Assessment & Plan Assessment & Plan (1) Current use of anticoagulant therapy: Code(s): Z79.01 - [facility] (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
[2023-06-12 10:33] LABS: Prothrombin Time Whole Bld POC 28.3 sec (11.1-13.5); ~PT, ~INR - Anti Coag Clinic 2.4 (0.9-1.1)
== END 2023-06-12 10:37 | disposition home or self-care (01) ==
LOC: HO.ACS 10:16
PROVIDERS: PCP Family Medicine; Visit Provider Internal Medicine
DX: Z79.01 Long term (current) use of anticoagulants (principal)

== ENCOUNTER → 2023-06-12 10:16 | Outpatient (BNVA) | payer OTHER, SELFPAY | PROVIDERS: PCP Family Medicine; Visit Provider Internal Medicine | DX: I48.0 Paroxysmal atrial fibrillation (principal); Z51.81 Encounter for therapeutic drug level monitoring; Z79.01 Long term (current) use of anticoagulants | CPT/HCPCS: 85610; 99211 ==

== ENCOUNTER 2023-06-13 10:04 | Outpatient (AMB) | payer OTHER, SELFPAY ==
--- NOTE | 2023-06-13 10:08 | A.OFFVIS_ITS ---
Intake Intake Visit Reasons: 1 year f/u s/p CT 06/05/23 Intake Note: Patient is here fr a 1 year follow up s/p CT 06/05/23, patient reports no new symptoms Beauty Advisor Required: No Accompanied by: Son Allergies lisinopril [LISINOPRIL] Allergy (Severe, Verified 06/13/23 10:12) ACUTE KIDNEY INJURY oxycodone [Percocet] Allergy (Intermediate, Verified 06/13/23 10:12) agitation codeine [CODEINE] Allergy (Unknown, Verified 06/13/23 10:12) AGITATION morphine [MORPHINE] Allergy (Unknown, Verified 06/13/23 10:12) AGITATION, confusion From PERCOCET Allergy (Unknown, Uncoded 06/12/23 10:28) AGITATION HPI 1 year f/u s/p CT 06/05/23 HPI Details Very pleasant 73-year-old gentleman presents for annual surveillance follow-up regarding descending thoracic aneurysm. It is approximately 4.1 cm in diameter he has had no interval changes over the last year or so. He now presents for follow-up with CT scan. [facility] Medical History Benign prostatic hyperplasia with lower urinary tract symptoms CAD (coronary artery disease) Chronic kidney disease, stage 3 unspecified HTN (hypertension) Paroxysmal atrial fibrillation Personal history of nicotine dependence Sinus bradycardia Surgical History History of esophagogastroduodenoscopy (EGD) Hx of cardiac cath Hx of cataract extraction Hx of colonoscopy Hx of cystoscopy Stented coronary artery Family History Mother CAD (coronary artery disease) Diabetes HTN (hypertension) Father CAD (coronary artery disease) Diabetes HTN (hypertension) Social History Alcohol intake: former Patient Tobacco Use Status: Former Tobacco user Quit Date: 2011 Years Smoked: 40 +/- Review of Systems Const All systems reviewed & are unremarkable except as noted in HPI and below Reports no additional complaints ENT Reports Normal hearing present Card Denies chest pain, Denies chest pain at rest, Denies chest pain with activity and Denies pedal edema Resp Denies cough GI Denies abdominal pain Musc Denies abnormal gait, Denies muscle cramps and Denies radiating pain into limb Skin/Breast Denies skin ulcer and Denies wounds Neuro Reports Normal hearing present and Denies abnormal gait Psych Reports no additional complaints Physical Exam Const General: cooperative, healthy appearing and comfortable Orientation/consciousness: oriented to person, oriented to place and oriented to time HEENT Head: Yes normal to inspection Neck Neck: Yes normal visual inspection Carotids: no bruits Chest Chest palpation & inspection: normal inspection of the chest Resp Effort & Inspection: normal respiratory effort and able to speak in complete sentences Auscultation: clear to auscultation bilaterally, no crackles, no rales, no rhonchi and no wheezes Cardio Rate: regular rate Rhythm: regular rhythm Heart sounds: S1 normal heart sound present and S2 normal heart sound present Bruits: no carotid bruits Peripheral pulses: Peripheral pulses 2+ throughout GI Inspection: Yes normal to inspection Skin Wounds: no wounds Hair: normal Neuro General: oriented to person, oriented to place and oriented to time Cranial nerves: Yes CN's II-XII intact bilaterally and Yes Normal hearing present Cognition (Neuro): normal cognition Motor exam (neuro): 5/5 motor strength present throughout Extrem Other: venous exam: No significant superficial varicosities or spider telangiectasias, minimal edema General: No clubbing, No cyanosis and No edema Psych Appearance: grossly normal Mental Status: mental status grossly normal Speech and movement: Normal speech and movement present Results Reviewed Results Reviewed: CT angiogram dated 06/05/2023 demonstrates 4.1 cm descending thoracic aneurysm. No change in size. Severe atherosclerotic plaquing. Assessment & Plan Assessment & Plan (1) Aneurysm of descending thoracic aorta: Code(s): I71.2 - Thoracic aortic aneurysm, without rupture Plan: In short patient has a stable descending thoracic aortic aneurysm. We did discuss pathophysiology of disease. He is being maintained on Coumadin at the current time. Will be scheduled for annual surveillance follow-up with us. Thank you for allowing us to assist in his care. Orders: Orders Blood Urea Nitrogen 364 Days I71.2 - Thoracic aortic aneurysm, without rupture Creatinine 364 Days I71.2 - Thoracic aortic aneurysm, without rupture CT angio chest aorta 364 Days I71.2 - Thoracic aortic aneurysm, without rupture Coding Level of Care Code Est Pt Level 4 (69005) Diagnoses Aneurysm of descending thoracic aorta I71.2
== END 2023-06-13 10:31 | disposition home or self-care (01) ==
PROVIDERS: PCP Family Medicine; Visit Provider Surgery Vascular Surgery
DX: I71.23 Aneurysm of the descending thoracic aorta, without rupture (principal)
CPT/HCPCS: 99213

== ENCOUNTER → 2023-06-13 10:04 | Outpatient (BNVA) | payer OTHER, SELFPAY | PROVIDERS: PCP Family Medicine; Visit Provider Surgery Vascular Surgery ==

== ENCOUNTER 2023-06-20 16:30 | Outpatient (REF) | payer OTHER, SELFPAY ==
[2023-06-20 16:45] LABS: MANUAL DIFF FLAG NO
[2023-06-20 17:57] LABS: Basophils Absolute Auto 0.1 X10*3/uL (0.0-0.2); Basophils Percent Auto 1.1 % (0-2); Eosinophils Absolute Auto 0.4 X10*3/uL (0.0-0.4); Eosinophils Percent Auto 4.8 % (0-4); Hematocrit 49.8 % (42.0-52.0); Hemoglobin 15.5 g/dl (14.0-18.0); Imm Gran Abs Auto 0.04 X10*3/uL (0.00-0.03); Imm Gran Pct Auto 0.5 % (0.0-0.4); Lymphocytes Absolute Auto 1.6 X10*3/uL (1.2-4.9); Lymphocytes Percent Auto 21.2 % (20-40); Mean Corpuscular HGB Conc 31.1 g/dl (31.0-36.0); Mean Corpuscular Hemoglobin 26.5 pg (27.0-33.0); Mean Platelet Volume 11.1 fL (9.4-12.4); Monocytes Absolute Auto 0.9 X10*3/uL (0.1-1.2); Monocytes Percent Auto 11.4 % (2-11); Neutrophils Absolute Auto 4.6 x10*3/uL (2.0-8.3); Platelet Count 194 X10*3/uL (160-400); Red Blood Count 5.86 X10*6/uL (4.60-5.80); Red Cell Distribution Width 15.6 % (11.0-16.0); White Blood Count 7.6 X10*3/uL (4.8-10.8)
[2023-06-20 18:45] LABS: Anion Gap 16 (12-20); Blood Urea Nitrogen 48 mg/dL (9-16); Calcium 9.6 mg/dL (8.4-10.2); Carbon Dioxide 21 mmol/L (22-29); Chloride 109 mmol/L (96-108); Estimated Glomerular Filt Rate 30; Glucose Random 70 mg/dL (60-115); Potassium 4.9 mmol/L (3.3-5.1); Sodium 141 mmol/L (135-145)
[2023-06-20 19:22] LABS: Creatinine Urine 118.32 mg/dL
[2023-06-20 20:01] LABS: Total Protein Urine Random 745 mg/dL (<12)
[2023-06-23 19:38] LABS: PTHI 70 pg/mL (16-77)
== END 2023-06-20 16:31 | disposition home or self-care (01) ==
LOC: HO.LAB 16:30
PROVIDERS: PCP Family Medicine; Visit Provider Internal Medicine Hypertension Specialist
DX: N18.30 Chronic kidney disease, stage 3 unspecified (principal)
CPT/HCPCS: 36415; 80048; 83970; 84156; 85025

== ENCOUNTER → 2023-07-03 10:29 | Outpatient (BNVA) | payer OTHER, SELFPAY | PROVIDERS: PCP Family Medicine; Visit Provider Internal Medicine | DX: I48.0 Paroxysmal atrial fibrillation (principal); Z79.01 Long term (current) use of anticoagulants; Z51.81 Encounter for therapeutic drug level monitoring | CPT/HCPCS: 85610; 99211 ==

== ENCOUNTER 2023-07-03 10:32 | Outpatient (AMB) | payer OTHER, SELFPAY ==
--- NOTE | 2023-07-03 10:35 | MHC.OFFVISCO ---
Intake Intake Visit Reasons: Anticoagulation Allergies lisinopril [LISINOPRIL] Allergy (Severe, Verified 07/03/23 10:33) ACUTE KIDNEY INJURY oxycodone [Percocet] Allergy (Intermediate, Verified 07/03/23 10:33) agitation codeine [CODEINE] Allergy (Unknown, Verified 07/03/23 10:33) AGITATION morphine [MORPHINE] Allergy (Unknown, Verified 07/03/23 10:33) AGITATION, confusion From PERCOCET Allergy (Unknown, Uncoded 07/03/23 10:33) AGITATION Medication List - Last Reconciled 07/03/23 by Lisa White RN alcohol swabs (Alcohol Prep Pads) 0 pad topical DIRECTED atorvastatin 80 mg PO QAM blood sugar diagnostic (OptiSynxTouch Ultra Test strips) As directed carbamide peroxide 6.5% (Ear Drops (carbamide peroxide)) 0 drps otic (ears) cetirizine 5 mg PO DAILY PRN cholecalciferol (vitamin D3) 25 mcg PO DAILY digoxin 125 mcg PO DAILY fenofibrate 160 mg PO DAILY fluticasone propionate 50 mcg/actuation 1 spray intranasal DAILY gabapentin 100 mg PO BEDTIME lancets ([employer] UltraSoft Lancets) As directed meclizine 25 mg PO TID PRN 10 days metoprolol tartrate 100 mg PO BID patiromer calcium sorbitex (Veltassa) grams PO warfarin 5 mg See Protocol PO DAILY Nursing Note INR: 2.1- in therapeutic range Medications and supplements reviewed- no changes No changes in health, diet, medications, or supplements, Denies any signs and symptoms of bleeding or bruising or clotting. Bleeding, bruising, clotting discussed Nutritional guidance given Dose: 5mg x 6, 7.5mg x 1 F/U INR: 3 weeks Patient and son verbalizes understanding of instructions given Anti-Coag Initial Assessment Social Hx Patient Tobacco Use Status: Former Tobacco user Quit Date: 2011 alcohol intake: former Alcohol intake frequency: does not drink Coding Level of Care Code Est Patient Level 1 Diagnoses Current use of anticoagulant therapy Z79.01 Results AMB INR Fingerstick AMB INR Fingerstick 2.1 Last Edit by Lisa White RN on 07/03/23 10:37 Assessment & Plan Assessment & Plan (1) Current use of anticoagulant therapy: Code(s): Z79.01 - halfway (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
[2023-07-03 10:37] LABS: Prothrombin Time Whole Bld POC 25.1 sec (11.1-13.5); ~PT, ~INR - Anti Coag Clinic 2.1 (0.9-1.1)
== END 2023-07-03 10:41 | disposition home or self-care (01) ==
LOC: HO.ACS 10:32
PROVIDERS: PCP Family Medicine; Visit Provider Internal Medicine
DX: Z79.01 Long term (current) use of anticoagulants (principal)

== ENCOUNTER 2023-07-26 10:35 | Outpatient (AMB) | payer OTHER, SELFPAY ==
[2023-07-26 10:55] LABS: Prothrombin Time Whole Bld POC 33.9 sec (11.1-13.5); ~PT, ~INR - Anti Coag Clinic 2.8 (0.9-1.1)
--- NOTE | 2023-07-26 11:02 | MHC.OFFVISCO ---
Intake Intake Visit Reasons: Anticoagulation Allergies lisinopril [LISINOPRIL] Allergy (Severe, Verified 07/26/23 10:51) ACUTE KIDNEY INJURY oxycodone [Percocet] Allergy (Intermediate, Verified 07/26/23 10:51) agitation codeine [CODEINE] Allergy (Unknown, Verified 07/26/23 10:51) AGITATION morphine [MORPHINE] Allergy (Unknown, Verified 07/26/23 10:51) AGITATION, confusion From PERCOCET Allergy (Unknown, Uncoded 07/03/23 10:33) AGITATION Medication List - Last Reconciled 07/26/23 by Elma Choudhury, RN alcohol swabs (Alcohol Prep Pads) 0 pad topical DIRECTED atorvastatin 80 mg PO QAM blood sugar diagnostic ([employer]uch Ultra Test strips) As directed carbamide peroxide 6.5% (Ear Drops (carbamide peroxide)) 0 drps otic (ears) cetirizine 5 mg PO DAILY PRN cholecalciferol (vitamin D3) 25 mcg PO DAILY digoxin 125 mcg PO DAILY fenofibrate 160 mg PO DAILY fluticasone propionate 50 mcg/actuation 1 spray intranasal DAILY gabapentin 100 mg PO BEDTIME lancets ([employer] UltraSoft Lancets) As directed meclizine 25 mg PO TID PRN 10 days metoprolol tartrate 100 mg PO BID patiromer calcium sorbitex (Veltassa) grams PO warfarin 5 mg See Protocol PO DAILY Nursing Note NO CP,SOB,DIET/MED CHANGES,FALLS OR SX OF BLEEDING. CONTINUE PRESERNT DOSE AND FOLLOW-UP IN 4 WEEKS. GOOD UNDERSTANDING OF DOSING INSTR. Anti-Coag Initial Assessment Social Hx Patient Tobacco Use Status: Former Tobacco user Quit Date: 2011 alcohol intake: former Alcohol intake frequency: does not drink Coding Level of Care Code Est Patient Level 1 Diagnoses Current use of anticoagulant therapy Z79.01 Results AMB INR Fingerstick AMB INR Fingerstick 2.8 Last Edit by Elma Choudhury RN on 07/26/23 10:56 Assessment & Plan Assessment & Plan (1) Current use of anticoagulant therapy: Code(s): Z79.01 - skilled nursing (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
== END 2023-07-26 11:04 | disposition home or self-care (01) ==
LOC: HO.ACS 10:35
PROVIDERS: PCP Family Medicine; Visit Provider Internal Medicine
DX: Z79.01 Long term (current) use of anticoagulants (principal)

== ENCOUNTER → 2023-07-26 10:35 | Outpatient (BNVA) | payer OTHER, SELFPAY | PROVIDERS: PCP Family Medicine; Visit Provider Internal Medicine | DX: I48.0 Paroxysmal atrial fibrillation (principal); Z79.01 Long term (current) use of anticoagulants; Z51.81 Encounter for therapeutic drug level monitoring | CPT/HCPCS: 85610; 99211 ==

== ENCOUNTER 2023-08-23 10:37 | Outpatient (AMB) | payer OTHER, SELFPAY ==
--- NOTE | 2023-08-23 10:49 | MHC.OFFVISCO ---
Intake Intake Visit Reasons: Anticoagulation Allergies lisinopril [LISINOPRIL] Allergy (Severe, Verified 08/23/23 10:46) ACUTE KIDNEY INJURY oxycodone [Percocet] Allergy (Intermediate, Verified 08/23/23 10:46) agitation codeine [CODEINE] Allergy (Unknown, Verified 08/23/23 10:46) AGITATION morphine [MORPHINE] Allergy (Unknown, Verified 08/23/23 10:46) AGITATION, confusion From PERCOCET Allergy (Unknown, Uncoded 08/23/23 10:46) AGITATION Medication List - Last Reconciled 08/23/23 by Lisa White RN alcohol swabs (Alcohol Prep Pads) 0 pad topical DIRECTED atorvastatin 80 mg PO QAM blood sugar diagnostic (SurviosTouch Ultra Test strips) As directed carbamide peroxide 6.5% (Ear Drops (carbamide peroxide)) 0 drps otic (ears) cetirizine 5 mg PO DAILY PRN cholecalciferol (vitamin D3) 25 mcg PO DAILY digoxin 125 mcg PO QAM fenofibrate 160 mg PO DAILY fluticasone propionate 50 mcg/actuation 1 spray intranasal DAILY gabapentin 100 mg PO BEDTIME lancets (SurviosTouch UltraSoft Lancets) As directed meclizine 25 mg PO TID PRN 10 days metoprolol tartrate 100 mg PO BID patiromer calcium sorbitex (Veltassa) grams PO warfarin 5 mg See Protocol PO DAILY Nursing Note INR: 2.9- in therapeutic range Medications and supplements reviewed- no changes pt had flu shot approx one week ago No changes in health, diet, medications, or supplements, Denies any signs and symptoms of bleeding or bruising or clotting. Bleeding, bruising, clotting discussed Nutritional guidance given Dose: 5mg x 6, 7.5mg x 1 F/U INR: 4 weeks Patient verbalizes understanding of instructions given Anti-Coag Initial Assessment Social Hx Patient Tobacco Use Status: Former Tobacco user Quit Date: 2011 alcohol intake: former Alcohol intake frequency: does not drink Coding Level of Care Code Est Patient Level 1 Diagnoses Current use of anticoagulant therapy Z79.01 Results AMB INR Fingerstick AMB INR Fingerstick 2.9 Last Edit by Lisa White RN on 08/23/23 10:51 Assessment & Plan Assessment & Plan (1) Current use of anticoagulant therapy: Code(s): Z79.01 - senior care (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
[2023-08-23 10:51] LABS: Prothrombin Time Whole Bld POC 35.2 sec (11.1-13.5); ~PT, ~INR - Anti Coag Clinic 2.9 (0.9-1.1)
== END 2023-08-23 10:55 | disposition home or self-care (01) ==
LOC: HO.ACS 10:37
PROVIDERS: PCP Family Medicine; Visit Provider Internal Medicine
DX: Z79.01 Long term (current) use of anticoagulants (principal)

== ENCOUNTER → 2023-08-23 10:37 | Outpatient (BNVA) | payer OTHER, SELFPAY | PROVIDERS: PCP Family Medicine; Visit Provider Internal Medicine | DX: I48.0 Paroxysmal atrial fibrillation (principal); Z51.81 Encounter for therapeutic drug level monitoring; Z79.01 Long term (current) use of anticoagulants | CPT/HCPCS: 85610; 99211 ==

== ENCOUNTER 2023-09-01 12:46 | Emergency (ER) | payer OTHER, SELFPAY ==
--- NOTE | ~2023-09-01 | XR_ITS ---
EXAMINATION: XR TOES, LEFT CLINICAL INFORMATION: Right toe pain. Baby B baby B COMPARISON: None available. TECHNIQUE: 3 views of the left toes were obtained. FINDINGS: No fracture or dislocation. Mild interphalangeal joint space narrowing. Mild sclerosis base of the proximal phalanx. No focal soft tissue swelling. XR/XR toe LT min 2V IMPRESSION: No acute bony pathology.
[2023-09-01 13:09] VITALS: BP 165/116; PULSE 100; RESP 17; TEMP 36.4; O2SAT 96; BMI 31.2
--- NOTE | 2023-09-01 13:13 | ED.GENADULT ---
HPI - General Adult General Chief complaint: Extremity Problem Stated complaint: L foot big toe pain Time Seen by Provider: 09/01/23 14:06 Source: patient, family (patient's daughter) and secy Mode of arrival: ambulatory Limitations: language barrier History of Present Illness HPI narrative: Patient is a 73 year old assigned male at with a history of atrial fib and CKD presenting to the emergency department today with left great toe pain. Patient states that over the last 2 days he has had worsening left great toe pain. Patient denies any dizziness, lightheadedness, abdominal pain, nausea, vomiting, fever, chills, blurry vision, double vision, loss of vision, chest pain, difficulty breathing, shortness of breath, back pain, night sweats, pain with urination, increased urinary frequency, increased urinary urgency, blood in his urine or stool, syncope or a near syncopal episode, recent trauma or falls, bowel incontinence, bladder incontinence, bowel retention, bladder retention, or any other complaints at this time. Onset (ago): day(s) (2) Severity: mild Severity scale (1-10): 3 Relieving factors: none Exacerbating factors: none Associated symptoms: denies other symptoms Treatments prior to arrival: none Related Data Home Medications Medication Instructions Recorded Confirmed cholecalciferol (vitamin D3) 25 25 mcg PO DAILY 01/07/21 05/11/23 mcg (1,000 unit) capsule fenofibrate 160 mg tablet 160 mg PO DAILY 01/07/21 05/11/23 gabapentin 100 mg capsule 100 mg PO BEDTIME 01/07/21 05/11/23 lancets (Cyto Wave TechnologiesTouch UltraSoft #100 ea 07/06/21 05/11/23 Lancets) alcohol swabs (Alcohol Prep Pads) 0 pad topical DIRECTED 07/13/22 05/11/23 blood sugar diagnostic (Cyto Wave TechnologiesTouch #10 ea 07/13/22 05/11/23 Ultra Test strips) fluticasone propionate 50 1 spray intranasal DAILY 07/13/22 05/11/23 mcg/actuation nasal spray,suspension cetirizine 5 mg tablet 5 mg PO DAILY PRN 11/10/22 05/11/23 atorvastatin 80 mg tablet 80 mg PO QAM 12/21/22 05/11/23 carbamide peroxide 6.5 % ear drops 0 drp otic (ears) 12/21/22 05/11/23 (Ear Drops (carbamide peroxide)) patiromer calcium sorbitex 8.4 g PO 12/21/22 05/11/23 gram oral powder packet (Veltassa) Previous Rx's Medication Instructions Recorded warfarin 5 mg tablet 5 mg PO DAILY #90 tabs 09/15/20 meclizine 25 mg tablet 25 mg PO TID PRN dizziness 10 days 03/17/22 #30 tabs metoprolol tartrate 100 mg tablet 100 mg PO BID #60 tabs 05/09/23 digoxin 125 mcg (0.125 mg) tablet 125 mcg PO QAM #90 tabs 08/14/23 prednisone 20 mg tablet 20 mg PO DAILY 7 days #7 tabs 09/01/23 Allergies Allergy/AdvReac Type Severity Reaction Status Date / Time lisinopril [LISINOPRIL] Allergy Severe ACUTE Verified 08/23/23 10:46 KIDNEY INJURY oxycodone [Percocet] Allergy Intermediate agitation Verified 08/23/23 10:46 codeine [CODEINE] Allergy Unknown AGITATION Verified 08/23/23 10:46 morphine [MORPHINE] Allergy Unknown AGITATION, Verified 08/23/23 10:46 confusion From PERCOCET Allergy Unknown AGITATION Uncoded 08/23/23 10:46 Review of Systems Constitutional: Constitutional: Reports no additional constitutional complaints, Denies chills, Denies fever(s) and Denies night sweats Eyes: Eyes: Reports no additional eye complaints, Denies blurry vision, Denies change in vision, Denies diplopia, Denies eye discharge, Denies loss of vision and Denies eye pain ENT: Denies dizziness Cardiovascular: Cardiovascular: Reports no additional cardiovascular complaints, Denies chest pain, Denies lightheadedness, Denies Loss of Consciousness and Denies dyspnea Respiratory: Respiratory: Reports no additional respiratory complaints and Denies dyspnea Gastrointestinal: Gastrointestinal: Reports no additional gastrointestinal complaints, Denies abdominal pain, Denies melena, Denies hematochezia, Denies change in bowel habits and Denies change in stool character Genitourinary: Genitourinary: Reports no additional male genitourinary complaints, Denies hematuria, Denies oliguria, Denies difficulty urinating, Denies dysuria, Denies urinary frequency, Denies urinary hesitancy, Denies urinary incontinence and Denies urinary urgency Musculoskeletal: Musculoskeletal: Reports no additional musculoskeletal complaints, Denies numbness and Denies tingling Comments: left great toe pain Neurologic: Denies dizziness, Denies loss of vision, Denies numbness and Denies tingling Psychiatric: Psychiatric: Reports no additional psychiatric complaints Endocrine: Endocrine: Reports no additional endocrine complaints Hematologic/Lymphatic: Hematologic/Lymphatic: Reports no additional hematologic/lymphatic complaints Allergic/Immunologic: Allergic/Immunologic: Reports no additional allergic/immunologic complaints PMFSH Past Medical History Attestation statement: The following information was validated with the patient. (patient's daughter validated all information) Source: old records reviewed, obtained from family (patient's daughter provided additional history and confirmed the history provided by the patient.) and nursing notes reviewed Medical History Benign prostatic hyperplasia with lower urinary tract symptoms CAD (coronary artery disease) Chronic kidney disease, stage 3 unspecified HTN (hypertension) Paroxysmal atrial fibrillation Personal history of nicotine dependence Sinus bradycardia Surgical History Stented coronary artery Hx of colonoscopy Hx of cardiac cath Hx of cystoscopy History of esophagogastroduodenoscopy (EGD) Hx of cataract extraction Family History Family History Mother CAD (coronary artery disease) Diabetes HTN (hypertension) Father CAD (coronary artery disease) Diabetes HTN (hypertension) Social History Social History Alcohol intake: former Patient Tobacco Use Status: Former Tobacco user Quit Date: 2011 Years Smoked: 40 +/- Advance Directives: Yes Advance Directives Information Provided: Yes Advance Directives on File: No Physical Exam ED Vital Signs: Vital Signs - 24 hr 09/01/23 13:09 Temperature 97.5 F Pulse Rate 100 Respiratory Rate 17 Blood Pressure 165/116 H Pulse Oximetry 96 Oxygen Delivery Method Room Air BMI result Body Mass Index 31.2 Const General: cooperative, no acute distress, alert and awake Nutritional Appearance: well nourished Orientation/consciousness: patient oriented x3 Limitations: no limitations HENMT Head: Yes normal to inspection and Yes atraumatic Ears: hearing grossly normal bilaterally and external ears normal General nose exam: Normal external nose present, no nasal discharge noted and no epistaxis Face and sinus: Yes normal facial exam, No abrasion and No laceration Mouth: Normal oral and palatal mucosa present, no drooling and no muffled voice Eyes General: appearance normal, both eyes and all related structures Periorbital: periorbital findings normal Eyelids: Yes eyelids normal Conjunctivae: conjunctivae normal Pupils: Equal, round and reactive pupils present EOM: EOMs intact bilaterally Neck Neck: Yes normal visual inspection, Yes full ROM and Yes no lymphadenopathy Chest Chest palpation & inspection: normal inspection of the chest Resp Effort & Inspection: normal respiratory effort and able to speak in complete sentences GI Inspection: Yes normal to inspection Neuro General: patient oriented x3 and moves all extremities Cranial nerves: Yes Equal, round and reactive pupils present Cognition (Neuro): normal cognition Motor exam (neuro): 5/5 motor strength present throughout Sensory Exam: Normal double simultaneous stimulation for sensation Coordination: [id number] test normal Extrem General: Yes normal to inspection, Yes full ROM and Yes capillary refill normal Psych Appearance: grossly normal Mental Status: mental status grossly normal Affect: normal affect Attitude: cooperative Thought process: Normal thought process present Thought content: Normal thought content present Insight: Good insight present (Psych) Course Course Course Narrative: RME- 73-year-old male presents for evaluation of left great toe pain. His pain started in his left leg 2 days ago and has been getting worse. Also complains of bilateral leg swelling. He has a history of DVT in the for will get ultrasounds to rule out acute DVT. He reports that he is currently anticoagulated. The left great toe pain appears most consistent with gout. Will get an x-ray to rule out fracture Medical Decision Making Medical Decision Making MDM Narrative: Patient is a 73 year old assigned male at with a history of CKD and atrial fib presenting to the emergency department today with left great toe pain. Patient's physical exam showed pain with palpation of the left great toe but was otherwise unremarkable. Patient's left toe x-ray showed no acute process. Patient's clinical presentation is most consistent with gout. Given patient's anti-coag use and CKD, cannot prescribe NSAIDs. I explained my physical exam findings as well as all test results to the patient and the patient's daughter. I answered all questions asked by the patient and the patient's daughter. I stressed the importance of the patient taking his medication as prescribed. I stressed the importance of the patient following up with his primary care provider. I stressed the importance of the patient returning to the emergency department immediately if his symptoms were to worsen or if he were to develop any dizziness, shortness of breath, difficulty breathing, chest pain, blurry vision, loss of vision, nausea, vomiting, abdominal pain, fever, chills, back pain, or any other complaints. Patient verbalized agreement and understanding with this treatment plan and discharge. Differential Diagnosis Differential Diagnoses: The differential diagnosis associated with the presentation includes Gout Toe pain Independent Interpretation I performed an independent interpretation of an: Plain X-Ray Interpretation: My interpretation is in agreement with the radiologist's impression of this imaging study. EXAMINATION: XR TOES, LEFT CLINICAL INFORMATION: Right toe pain. Baby B baby B COMPARISON: None available. TECHNIQUE: 3 views of the left toes were obtained. FINDINGS: No fracture or dislocation. Mild interphalangeal joint space narrowing. Mild sclerosis base of the proximal phalanx. No focal soft tissue swelling. XR/XR toe LT min 2V IMPRESSION: No acute bony pathology. Dictated By: Rayna Neely MD Signed By: Electronically signed by Rayna Neely MD 09/01/23 4820 Radiology Impression Discussion of test interpretation with radiology: I have reviewed the radiologist's reading. Independent Historian Clinical information obtained from an independent historian. History obtained from or confirmed by: Other (patient's daughter provided additional history and confirmed the history provided by the patient.) Discharge Plan Discharge Clinical Impression: Gout Patient Disposition: Home, Self-Care Instructions: Low Purine Diet (ED), Gout (ED) Additional Instructions: Follow up with your primary care provider. Return to the emergency department immediately if your symptoms worsen or if you develop any dizziness, shortness of breath, difficulty breathing, chest pain, blurry vision, loss of vision, nausea, vomiting, abdominal pain, fever, chills, back pain, or any other complaints. Christy un seguimiento con doherty proveedor de atenci?n primaria. Regrese al departamento de emergencias inmediatamente si roger s?ntomas empeoran o si presenta mareos, dificultad para respirar, dificultad para respirar, dolor en el pecho, visi?n borrosa, p?rdida de la visi?n, n?useas, v?mitos, dolor abdominal, fiebre, escalofr?os, dolor de espalda o cualquier otras quejas. Prescriptions: New prednisone 20 mg tablet 20 mg PO DAILY 7 Days Qty: 7 0RF No Action metoprolol tartrate 100 mg tablet 100 mg PO BID Qty: 60 5RF digoxin 125 mcg (0.125 mg) tablet 125 mcg PO QAM Qty: 90 3RF meclizine 25 mg tablet 25 mg PO TID PRN (Reason: dizziness) 10 Days Qty: 30 0RF (DME) lancets [OneTouch UltraSoft Lancets] Misc See Rx Instructions Not Applicable BID Qty: 100 Rx Instructions: As directed cetirizine 5 mg tablet 5 mg PO DAILY PRN warfarin 5 mg tablet 5 mg PO DAILY Qty: 90 0RF Protocol: Dose Management Condition: Monday (Week One) Dose/Route: 5 mg Instruction: 1 x 5 mg tablet Condition: Monday Dose/Route: 7.5 mg Instruction: 1.5 x 5 mg tablets Condition: Monday Dose/Route: 5 mg Instruction: 1 x 5 mg tablet Condition: Monday Dose/Route: 5 mg Instruction: 1 x 5 mg tablet Condition: Dose/Route: 5 mg Instruction: 1 x 5 mg tablet Condition: Monday Dose/Route: 5 mg Instruction: 1 x 5 mg tablet Condition: Monday Dose/Route: 5 mg Instruction: 1 x 5 mg tablet Condition: Monday (Week Two) Dose/Route: 5 mg Instruction: 1 x 5 mg tablet Condition: Monday Dose/Route: 7.5 mg Instruction: 1.5 x 5 mg tablets Condition: Monday Dose/Route: 5 mg Instruction: 1 x 5 mg tablet Condition: Monday Dose/Route: 5 mg Instruction: 1 x 5 mg tablet Condition: Dose/Route: 5 mg Instruction: 1 x 5 mg tablet Condition: Monday Dose/Route: 5 mg Instruction: 1 x 5 mg tablet Condition: Monday Dose/Route: 5 mg Instruction: 1 x 5 mg tablet Protocol Text: Adjustment Start Date: Monday08/23/23 INR Value: 2.9 INR Date: 08/23/23 Recheck Date: 09/20/23 Additional Instructions: cont same dosing call with any changes in medications Rx Instructions: 5MG X3, 2.5MGX4 fenofibrate 160 mg tablet 160 mg PO DAILY gabapentin 100 mg capsule 100 mg PO BEDTIME Rx Instructions: 2 capsules cholecalciferol (vitamin D3) 25 mcg (1,000 unit) capsule 25 mcg PO DAILY fluticasone propionate 50 mcg/actuation spray,suspension 1 spray intranasal DAILY alcohol swabs [Alcohol Prep Pads] Pads, Medicated 0 pad topical DIRECTED (DME) OneTouch Ultra Test Strip See Rx Instructions Not Applicable BID-TID Qty: 10 Rx Instructions: As directed Ear Drops (carbamide peroxide) 6.5 % drops 0 drp otic (ears) atorvastatin 80 mg tablet 80 mg PO QAM Veltassa 8.4 gram powder in packet PO Referrals: Sherry Ward MD [Primary Care Provider] - Interventions: ED Discharge Assessment Last Done: 09/01/23 14:48 Discharge Date/Time: 09/01/23 14:49 Print Language: Turkish
== END 2023-09-01 14:49 | disposition home or self-care (01) ==
PROVIDERS: Emergency Provider Student in an Organized Health Care Education/Training Program; PCP Family Medicine
DX: M10.9 Gout, unspecified (principal); M79.675 Pain in left toe(s)
CPT/HCPCS: 73660; 99283

== ENCOUNTER 2023-09-12 09:44 | Outpatient (REF) | payer OTHER, SELFPAY ==
[2023-09-12 10:09] LABS: MANUAL DIFF FLAG NO
[2023-09-12 10:39] LABS: Basophils Percent Auto 0.2 % (0-2); Eosinophils Absolute Auto 0.1 X10*3/uL (0.0-0.4); Eosinophils Percent Auto 0.9 % (0-4); Hematocrit 49.2 % (42.0-52.0); Hemoglobin 15.5 g/dl (14.0-18.0); Imm Gran Pct Auto 1.6 % (0.0-0.4); Lymphocytes Absolute Auto 1.9 X10*3/uL (1.2-4.9); Mean Corpuscular HGB Conc 31.5 g/dl (31.0-36.0); Mean Corpuscular Hemoglobin 27.1 pg (27.0-33.0); Mean Corpuscular Volume 85.9 fL (80.0-98.0); Mean Platelet Volume 10.7 fL (9.4-12.4); Monocytes Absolute Auto 1.4 X10*3/uL (0.1-1.2); Monocytes Percent Auto 11.1 % (2-11); Neutrophils Percent Auto 71.2 % (45-73); Platelet Count 207 X10*3/uL (160-400); Red Blood Count 5.73 X10*6/uL (4.60-5.80); Red Cell Distribution Width 15.3 % (11.0-16.0); White Blood Count 12.7 X10*3/uL (4.8-10.8)
[2023-09-12 11:12] LABS: Anion Gap 11 (12-20); Blood Urea Nitrogen 51 mg/dL (9-16); Calcium 9.1 mg/dL (8.4-10.2); Carbon Dioxide 26 mmol/L (22-29); Chloride 109 mmol/L (96-108); Estimated Glomerular Filt Rate 32; Glucose Random 91 mg/dL (60-115); Potassium 5.1 mmol/L (3.3-5.1); Sodium 141 mmol/L (135-145)
== END 2023-09-12 09:45 | disposition home or self-care (01) ==
LOC: HO.LAB 09:44
PROVIDERS: PCP Internal Medicine Geriatric Medicine; Visit Provider Internal Medicine Geriatric Medicine
DX: M79.675 Pain in left toe(s) (principal); I48.0 Paroxysmal atrial fibrillation; Z51.81 Encounter for therapeutic drug level monitoring; Z79.01 Long term (current) use of anticoagulants
CPT/HCPCS: 36415; 80048; 84550; 85025; 85610; 99211

== ENCOUNTER 2023-09-12 10:17 | Outpatient (AMB) | payer OTHER, SELFPAY ==
[2023-09-12 10:51] LABS: Prothrombin Time Whole Bld POC 20.7 sec (11.1-13.5); ~PT, ~INR - Anti Coag Clinic 1.7 (0.9-1.1)
--- NOTE | 2023-09-12 11:02 | MHC.OFFVISCO ---
Intake Intake Visit Reasons: Anticoagulation Allergies lisinopril [LISINOPRIL] Allergy (Severe, Verified 09/12/23 10:39) ACUTE KIDNEY INJURY oxycodone [Percocet] Allergy (Intermediate, Verified 09/12/23 10:39) agitation codeine [CODEINE] Allergy (Unknown, Verified 09/12/23 10:39) AGITATION morphine [MORPHINE] Allergy (Unknown, Verified 09/12/23 10:39) AGITATION, confusion From PERCOCET Allergy (Unknown, Uncoded 09/12/23 10:39) AGITATION Medication List - Last Reconciled 09/12/23 by Anne Gould RN alcohol swabs (Alcohol Prep Pads) 0 pad topical DIRECTED atorvastatin 80 mg PO QAM blood sugar diagnostic ([employer]SystemsTouch Ultra Test strips) As directed carbamide peroxide 6.5% (Ear Drops (carbamide peroxide)) 0 drps otic (ears) cetirizine 5 mg PO DAILY PRN cholecalciferol (vitamin D3) 25 mcg PO DAILY digoxin 125 mcg PO QAM fenofibrate 160 mg PO DAILY fluticasone propionate 50 mcg/actuation 1 spray intranasal DAILY gabapentin 100 mg PO BEDTIME lancets ([employer] UltraSoft Lancets) As directed meclizine 25 mg PO TID PRN 10 days metoprolol tartrate 100 mg PO BID patiromer calcium sorbitex (Veltassa) grams PO prednisone 20 mg PO DAILY 7 days warfarin 5 mg See Protocol PO DAILY Nursing Note INR 1.7? out of therapeutic range Medications and supplements reviewed Patient status: PT RU TREATED FOR GOUT WITH PREDNISONE - HAD LAB WORK THIS AM , LABS PENDING Medications or supplements: PREDNISONE S- POSSIBLE TO RAISE OR LOWER THE INR Diet: GOOD , HUNGRY WITH PREDNISONE Denies any signs and symptoms of bleeding or clotting or unusual bruising Bleeding, bruising, clotting discussed Nutritional guidance given: AVOID GREENS X 3 DAYSS, EAT ORANGE AND REDS TODAY TO HELP RAISE THE INR Dose: 7.5MG X 2 DYS THIS WEEK THEN RESUME 7.5MG X 1 DAYS/ 5MG X 6 DAYS F/U INR Date : 10 DAYS ?? Patient verbalizing understanding of instructions given. Anti-Coag Initial Assessment Social Hx Patient Tobacco Use Status: Former Tobacco user Quit Date: 2011 alcohol intake: former Alcohol intake frequency: does not drink Coding Level of Care Code Est Patient Level 1 Diagnoses Current use of anticoagulant therapy Z79.01 Results AMB INR Fingerstick AMB INR Fingerstick 1.7 Last Edit by Anne Gould RN on 09/12/23 10:52 MANUAL ENTRY DELAYED INTERACING Assessment & Plan Assessment & Plan (1) Current use of anticoagulant therapy: Code(s): Z79.01 - residential (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
== END 2023-09-12 11:05 | disposition home or self-care (01) ==
LOC: HO.ACS 10:17
PROVIDERS: PCP Internal Medicine Geriatric Medicine; Visit Provider Internal Medicine
DX: Z79.01 Long term (current) use of anticoagulants (principal)

== ENCOUNTER 2023-09-20 10:16 | Outpatient (AMB) | payer OTHER, SELFPAY ==
[2023-09-20 10:36] LABS: Prothrombin Time Whole Bld POC 42.6 sec (11.1-13.5); ~PT, ~INR - Anti Coag Clinic 3.6 (0.9-1.1)
--- NOTE | 2023-09-20 10:41 | MHC.OFFVISCO ---
Intake Intake Visit Reasons: Anticoagulation Allergies lisinopril [LISINOPRIL] Allergy (Severe, Verified 09/20/23 10:24) ACUTE KIDNEY INJURY oxycodone [Percocet] Allergy (Intermediate, Verified 09/20/23 10:24) agitation codeine [CODEINE] Allergy (Unknown, Verified 09/20/23 10:24) AGITATION morphine [MORPHINE] Allergy (Unknown, Verified 09/20/23 10:24) AGITATION, confusion From PERCOCET Allergy (Unknown, Uncoded 09/12/23 10:39) AGITATION Medication List - Last Reconciled 09/20/23 by Elma Choudhury, RN alcohol swabs (Alcohol Prep Pads) 0 pad topical DIRECTED atorvastatin 80 mg PO QAM blood sugar diagnostic ([employer] Ultra Test strips) As directed carbamide peroxide 6.5% (Ear Drops (carbamide peroxide)) 0 drps otic (ears) cetirizine 5 mg PO DAILY PRN cholecalciferol (vitamin D3) 25 mcg PO DAILY digoxin 125 mcg PO QAM fenofibrate 160 mg PO DAILY fluticasone propionate 50 mcg/actuation 1 spray intranasal DAILY gabapentin 100 mg PO BEDTIME lancets ([employer] UltraSoft Lancets) As directed meclizine 25 mg PO TID PRN 10 days metoprolol tartrate 100 mg PO BID patiromer calcium sorbitex (Veltassa) grams PO prednisone 20 mg PO DAILY 7 days warfarin 5 mg See Protocol PO DAILY Nursing Note PT.HAS 2 DAYS REMAINING ON PREDNISONE(GOUT) SX ARE IMPROVINGT BUT HE HAS ALSO HAD LARGE AMTS OF FRUIT JUICES. HOLD WARFARIN TODAY THEN RESUME USUAL DOSE AND FOLLOW-UP IN 1 WEEK. GOOD UNDERSTANDING OF DOSING INSTR. Anti-Coag Initial Assessment Social Hx Patient Tobacco Use Status: Former Tobacco user Quit Date: 2011 alcohol intake: former Alcohol intake frequency: does not drink Coding Level of Care Code Est Patient Level 1 Diagnoses Current use of anticoagulant therapy Z79.01 Results AMB INR Fingerstick AMB INR Fingerstick 3.6 Last Edit by Elma Choudhury RN on 09/20/23 10:36 Assessment & Plan Assessment & Plan (1) Current use of anticoagulant therapy: Code(s): Z79.01 - retirement (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
== END 2023-09-20 10:44 | disposition home or self-care (01) ==
LOC: HO.ACS 10:16
PROVIDERS: PCP Family Medicine; Visit Provider Internal Medicine
DX: Z79.01 Long term (current) use of anticoagulants (principal)

== ENCOUNTER → 2023-09-20 10:16 | Outpatient (BNVA) | payer OTHER, SELFPAY | PROVIDERS: PCP Family Medicine; Visit Provider Internal Medicine | DX: I48.0 Paroxysmal atrial fibrillation (principal); Z79.01 Long term (current) use of anticoagulants; Z51.81 Encounter for therapeutic drug level monitoring | CPT/HCPCS: 85610; 99211 ==

== ENCOUNTER 2023-09-22 15:25 | Outpatient (AMB) | payer OTHER, SELFPAY ==
--- NOTE | 2023-09-22 15:38 | HO.NEPHOV_ITS ---
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 He is here for regular follow-up. Accompanied by son. History of gout he was treated with a course of prednisone. [facility]LY [facility] Medical History (Updated 10/18/23 @ 13:13 by Alex Garcia MD) Gout Personal history of nicotine dependence Chronic kidney disease, stage 3 unspecified Benign prostatic hyperplasia with lower urinary tract symptoms HTN (hypertension) CAD (coronary artery disease) Sinus bradycardia Paroxysmal atrial fibrillation Surgical History Stented coronary artery Hx of colonoscopy Hx of cardiac cath Hx of cystoscopy History of esophagogastroduodenoscopy (EGD) Hx of cataract extraction Family History Mother CAD (coronary artery disease) Diabetes HTN (hypertension) Father CAD (coronary artery disease) Diabetes HTN (hypertension) Social History Alcohol intake: former Patient Tobacco Use Status: Former Tobacco user Quit Date: 2011 Years Smoked: 40 +/- Vital Signs 09/22/23 15:43 Height 5 ft 6 in Weight 189 lb BMI 30.5 BP 120/90 H Blood Pressure Location Lt brachial Position Sitting Pulse 67 Pulse Source Pulse Oximeter Pulse Oximetry (%) 95 Oxygen Delivery Method Room Air Physical Exam Vital Signs: Last Vital Signs Pulse 67 09/22/23 15:43 BP 120/90 H 09/22/23 15:43 Pulse Ox 95 09/22/23 15:43 Oxygen Delivery Method Room Air 09/22/23 15:43 BMI result Body Mass Index 30.5 Const General: comfortable Nutritional Appearance: well nourished Orientation/consciousness: patient oriented x3 HEENT Head: No normal to inspection Mouth: moist mucous membranes Neck Neck: Yes supple and Yes no JVD Resp Auscultation: clear to auscultation bilaterally, no rales and rub present Cardio Jugular venous distension: no JVD Palpation: no palpable S3 and no palpable S4 Heart sounds: no rubs GI Palpation (GI): Soft to palpation and nontender Percussion: No Fluid wave present General: Yes no CVA tenderness Back/Spine/Pelvis Back: no CVA tenderness Skin General skin exam: no rashes or lesions noted Neuro General: patient oriented x3 Extrem General: Yes no pedal edema and No clubbing Results Reviewed Results Reviewed: Labs was reviewed Assessment & Plan Assessment & Plan (1) Chronic kidney disease, stage 3 unspecified: Code(s): N18.30 - Chronic kidney disease, stage 3 unspecified Plan: Chronic disease due to interstitial nephritis by biopsy. Initial biopsy was done only [facility] note tissue was obtained. Repeat biopsy was done and was [facility] which revealed interstitial nephritis with global sclerosis. At present renal function is at baseline. Continue to avoid nephrotoxic agents. Will monitor renal function closely (2) HTN (hypertension): Code(s): I10 - Essential (primary) hypertension Plan: Blood pressure is acceptable No changes made to the medications Low-salt diet (3) Gout: Code(s): M10.9 - Gout, unspecified Plan: Seems to be under control. I will give a prescription for Uloric to lower uric acid We discussed low purine diet Orders: Orders Electrolytes 3 Months N18.30 - Chronic kidney disease, stage 3 unspecified Blood Urea Nitrogen 3 Months N18.30 - Chronic kidney disease, stage 3 unspecified Creatinine 3 Months N18.30 - Chronic kidney disease, stage 3 unspecified Calcium 3 Months N18.30 - Chronic kidney disease, stage 3 unspecified Uric Acid 3 Months N18.30 - Chronic kidney disease, stage 3 unspecified Medications: New febuxostat (Uloric) 40 mg PO DAILY 30 tabs 0RF prednisone 10 mg PO DAILY 10 tabs 0RF Coding Level of Care Code Est Pt Level 3 (51964) Diagnoses Chronic kidney disease, stage 3 unspecified N18.30 HTN (hypertension) I10 Gout M10.9
[2023-09-22 15:43] VITALS: BP 120/90; PULSE 67; O2SAT 95; BMI 30.5
== END 2023-09-22 16:15 | disposition home or self-care (01) ==
LOC: HO.HKA 15:25
PROVIDERS: PCP Family Medicine; Visit Provider Internal Medicine Hypertension Specialist
DX: N18.30 Chronic kidney disease, stage 3 unspecified (principal); I10 Essential (primary) hypertension; M10.9 Gout, unspecified
CPT/HCPCS: 99213

== ENCOUNTER → 2023-09-22 15:25 | Outpatient (BNVA) | payer OTHER, SELFPAY | PROVIDERS: PCP Family Medicine; Visit Provider Internal Medicine Hypertension Specialist | DX: I12.9 Hypertensive chronic kidney disease with stage 1 through stage 4 chronic kidney disease, or unspecified chronic kidney disease (principal); N18.30 Chronic kidney disease, stage 3 unspecified; M10.9 Gout, unspecified | CPT/HCPCS: 99212 ==

== ENCOUNTER 2023-09-27 10:28 | Outpatient (AMB) | payer OTHER, SELFPAY ==
[2023-09-27 10:50] LABS: ~PT, ~INR - Anti Coag Clinic 1.3 (0.9-1.1)
--- NOTE | 2023-09-27 10:51 | MHC.OFFVISCO ---
Intake Intake Visit Reasons: Anticoagulation Allergies lisinopril [LISINOPRIL] Allergy (Severe, Verified 09/27/23 10:42) ACUTE KIDNEY INJURY oxycodone [Percocet] Allergy (Intermediate, Verified 09/27/23 10:42) agitation codeine [CODEINE] Allergy (Unknown, Verified 09/27/23 10:42) AGITATION morphine [MORPHINE] Allergy (Unknown, Verified 09/22/23 15:39) AGITATION, confusion From PERCOCET Allergy (Unknown, Uncoded 09/12/23 10:39) AGITATION Medication List - Last Reconciled 09/27/23 by Lisa White, RN alcohol swabs (Alcohol Prep Pads) 0 pad topical DIRECTED atorvastatin 80 mg PO QAM blood sugar diagnostic (OneTouch Ultra Test strips) As directed carbamide peroxide 6.5% (Ear Drops (carbamide peroxide)) 0 drps otic (ears) cetirizine 5 mg PO DAILY PRN cholecalciferol (vitamin D3) 25 mcg PO DAILY digoxin 125 mcg PO QAM febuxostat (Uloric) 40 mg PO DAILY febuxostat 40 mg PO DAILY fenofibrate 160 mg PO DAILY fluticasone propionate 50 mcg/actuation 1 spray intranasal DAILY gabapentin 100 mg PO BEDTIME lancets ([employer] UltraSoft Lancets) As directed meclizine 25 mg PO TID PRN 10 days metoprolol tartrate 100 mg PO BID prednisone 10 mg PO DAILY warfarin 5 mg See Protocol PO DAILY Nursing Note INR 1.3-? out of therapeutic range of 2-3 Medications and supplements reviewed Patient status: pt recent gout with prednisone, finished last week denies missed dose Medications or supplements: no changes Diet: good Denies any signs and symptoms of bleeding or clotting or unusual bruising Bleeding, bruising, clotting discussed - aware risk of clotting Nutritional guidance given: no greens for 2-3 days Dose: 7.5mg today and tomm then cont reg 5mg x 6, 7.5mg x 1 F/U INR Date : monday10/02/23?? Patient verbalizing understanding of instructions given. pcp office dr garcia called with low inr/dosing and f/u appt monday- spoke to jesu at 1100 Anti-Coag Initial Assessment Social Hx Patient Tobacco Use Status: Former Tobacco user Quit Date: 2011 alcohol intake: former Alcohol intake frequency: does not drink Coding Level of Care Code Est Patient Level 1 Diagnoses Current use of anticoagulant therapy Z79.01 Assessment & Plan Assessment & Plan (1) Current use of anticoagulant therapy: Code(s): Z79.01 - termination clerk (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
== END 2023-09-27 11:03 | disposition home or self-care (01) ==
LOC: HO.ACS 10:28
PROVIDERS: PCP Family Medicine; Visit Provider Internal Medicine
DX: Z79.01 Long term (current) use of anticoagulants (principal)

== ENCOUNTER → 2023-09-27 10:28 | Outpatient (BNVA) | payer OTHER, SELFPAY | PROVIDERS: PCP Family Medicine; Visit Provider Internal Medicine | DX: I48.0 Paroxysmal atrial fibrillation (principal); Z79.01 Long term (current) use of anticoagulants; Z51.81 Encounter for therapeutic drug level monitoring | CPT/HCPCS: 85610; 99211 ==

== ENCOUNTER 2023-10-02 10:14 | Outpatient (AMB) | payer OTHER, SELFPAY ==
--- NOTE | 2023-10-02 10:34 | MHC.OFFVISCO ---
Intake Intake Visit Reasons: Anticoagulation Allergies lisinopril [LISINOPRIL] Allergy (Severe, Verified 10/02/23 10:18) ACUTE KIDNEY INJURY oxycodone [Percocet] Allergy (Intermediate, Verified 10/02/23 10:18) agitation codeine [CODEINE] Allergy (Unknown, Verified 10/02/23 10:18) AGITATION morphine [MORPHINE] Allergy (Unknown, Verified 10/02/23 10:18) AGITATION, confusion From PERCOCET Allergy (Unknown, Uncoded 10/02/23 10:18) AGITATION Medication List - Last Reconciled 10/02/23 by Anne Gould RN alcohol swabs (Alcohol Prep Pads) 0 pad topical DIRECTED atorvastatin 80 mg PO QAM blood sugar diagnostic ([employer]Touch Ultra Test strips) As directed carbamide peroxide 6.5% (Ear Drops (carbamide peroxide)) 0 drps otic (ears) cetirizine 5 mg PO DAILY PRN cholecalciferol (vitamin D3) 25 mcg PO DAILY digoxin 125 mcg PO QAM febuxostat (Uloric) 40 mg PO DAILY febuxostat 40 mg PO DAILY fenofibrate 160 mg PO DAILY fluticasone propionate 50 mcg/actuation 1 spray intranasal DAILY gabapentin 100 mg PO BEDTIME lancets ([employer]Touch UltraSoft Lancets) As directed meclizine 25 mg PO TID PRN 10 days metoprolol tartrate 100 mg PO BID prednisone 10 mg PO DAILY warfarin 5 mg See Protocol PO DAILY Nursing Note INR: 2.7 in therapeutic range Medications and supplements reviewed C/O O HAVING THE FLU - VERY TIERED ACHES AND HAS A COUGH X 2 WITH OROZCO SPUTUM, ENC TO CALL PCP OR GO TO URGENT CARE Denies any signs and symptoms of bleeding or bruising or clotting. Bleeding, bruising, clotting discussed Nutritional guidance given REVIEW FOOD LIST EAT A MIX OF FRUITS AND VEGTABLES Dose: KEEP SAME FOR NOW 7.5MG X 1 DAY/ 5MG X 6 DAYS CALL WITH ANY MED CHANGES IN 1 -2 DAYS F/U INR: 1 WEEK Patient verbalizes understanding of instructions given Anti-Coag Initial Assessment Social Hx Patient Tobacco Use Status: Former Tobacco user Quit Date: 2011 alcohol intake: former Alcohol intake frequency: does not drink Coding Level of Care Code Est Patient Level 1 Diagnoses Current use of anticoagulant therapy Z79.01 Results AMB INR Fingerstick AMB INR Fingerstick 2.7 Last Edit by Anne Gould RN on 10/02/23 10:29 MANUAL ENTRY Assessment & Plan Assessment & Plan (1) Current use of anticoagulant therapy: Code(s): Z79.01 - adjunct faculty for medical terminology (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
[2023-10-02 11:47] LABS: Prothrombin Time Whole Bld POC 32.4 sec (11.1-13.5); ~PT, ~INR - Anti Coag Clinic 2.7 (0.9-1.1)
== END 2023-10-02 10:37 | disposition home or self-care (01) ==
LOC: HO.ACS 10:14
PROVIDERS: PCP Family Medicine; Visit Provider Internal Medicine
DX: Z79.01 Long term (current) use of anticoagulants (principal)

== ENCOUNTER → 2023-10-02 10:14 | Outpatient (BNVA) | payer OTHER, SELFPAY | PROVIDERS: PCP Family Medicine; Visit Provider Internal Medicine | DX: I48.0 Paroxysmal atrial fibrillation (principal); Z79.01 Long term (current) use of anticoagulants; Z51.81 Encounter for therapeutic drug level monitoring | CPT/HCPCS: 85610; 99211 ==

== ENCOUNTER 2023-10-09 10:49 | Outpatient (AMB) | payer OTHER, SELFPAY ==
[2023-10-09 11:16] LABS: Prothrombin Time Whole Bld POC 21.1 sec (11.1-13.5); ~PT, ~INR - Anti Coag Clinic 1.8 (0.9-1.1)
--- NOTE | 2023-10-09 11:25 | MHC.OFFVISCO ---
Intake Intake Visit Reasons: Anticoagulation Allergies lisinopril [LISINOPRIL] Allergy (Severe, Verified 10/09/23 11:06) ACUTE KIDNEY INJURY oxycodone [Percocet] Allergy (Intermediate, Verified 10/09/23 11:06) agitation codeine [CODEINE] Allergy (Unknown, Verified 10/09/23 11:06) AGITATION morphine [MORPHINE] Allergy (Unknown, Verified 10/09/23 11:06) AGITATION, confusion From PERCOCET Allergy (Unknown, Uncoded 10/09/23 11:06) AGITATION Medication List - Last Reconciled 10/09/23 by Anne Gould RN alcohol swabs (Alcohol Prep Pads) 0 pad topical DIRECTED atorvastatin 80 mg PO QAM blood sugar diagnostic (OneTouch Ultra Test strips) As directed carbamide peroxide 6.5% (Ear Drops (carbamide peroxide)) 0 drps otic (ears) cetirizine 5 mg PO DAILY PRN cholecalciferol (vitamin D3) 25 mcg PO DAILY digoxin 125 mcg PO QAM febuxostat (Uloric) 40 mg PO DAILY fenofibrate 160 mg PO DAILY fluticasone propionate 50 mcg/actuation 1 spray intranasal DAILY gabapentin 100 mg PO BEDTIME lancets (OneTouch UltraSoft Lancets) As directed meclizine 25 mg PO TID PRN 10 days metoprolol tartrate 100 mg PO BID warfarin 5 mg See Protocol PO DAILY Nursing Note Pt has had a cold x 3 weeks , took otc med and last week daughter gave him a tea x 2 days that helped him feel better - not sure what was in it INR ?1.8? out of therapeutic range Medications and supplements reviewed Patient status: feels almost better Medications or supplements: same Diet: has not had very many greens Denies any signs and symptoms of bleeding or clotting or unusual bruising Bleeding, bruising, clotting discussed Nutritional guidance given: avoid greens today then eat a mix of fruits and vegetables Dose: keep same for now 7.5mg x 1 day/ 5mg x 6 days - seems with eac adjustment INR swings more out of range F/U INR Date : 10/19/23 ?? Patient verbalizing understanding of instructions given. Anti-Coag Initial Assessment Social Hx Patient Tobacco Use Status: Former Tobacco user Quit Date: 2011 alcohol intake: former Alcohol intake frequency: does not drink Coding Level of Care Code Est Patient Level 1
== END 2023-10-09 11:28 | disposition home or self-care (01) ==
LOC: HO.ACS 10:50
PROVIDERS: PCP Family Medicine; Visit Provider Internal Medicine
DX: Z79.01 Long term (current) use of anticoagulants (principal)

== ENCOUNTER → 2023-10-09 10:49 | Outpatient (BNVA) | payer OTHER, SELFPAY | PROVIDERS: PCP Family Medicine; Visit Provider Internal Medicine | DX: I48.0 Paroxysmal atrial fibrillation (principal); Z79.01 Long term (current) use of anticoagulants; Z51.81 Encounter for therapeutic drug level monitoring | CPT/HCPCS: 85610; 99211 ==

== ENCOUNTER 2023-10-20 11:00 | Outpatient (AMB) | payer OTHER, SELFPAY ==
[2023-10-20 11:08] LABS: ~PT, ~INR - Anti Coag Clinic 2.2 (0.9-1.1)
--- NOTE | 2023-10-20 11:16 | MHC.OFFVISCO ---
Intake Intake Visit Reasons: Anticoagulation Allergies lisinopril [LISINOPRIL] Allergy (Severe, Verified 10/20/23 11:02) ACUTE KIDNEY INJURY oxycodone [Percocet] Allergy (Intermediate, Verified 10/20/23 11:02) agitation codeine [CODEINE] Allergy (Unknown, Verified 10/20/23 11:02) AGITATION morphine [MORPHINE] Allergy (Unknown, Verified 10/20/23 11:02) AGITATION, confusion From PERCOCET Allergy (Unknown, Uncoded 10/20/23 11:02) AGITATION Medication List - Last Reconciled 10/20/23 by Anne Gould RN alcohol swabs (Alcohol Prep Pads) 0 pad topical DIRECTED atorvastatin 80 mg PO QAM blood sugar diagnostic (OneTouch Ultra Test strips) As directed carbamide peroxide 6.5% (Ear Drops (carbamide peroxide)) 0 drps otic (ears) cetirizine 5 mg PO DAILY PRN cholecalciferol (vitamin D3) 25 mcg PO DAILY digoxin 125 mcg PO QAM febuxostat (Uloric) 40 mg PO DAILY fenofibrate 160 mg PO DAILY fluticasone propionate 50 mcg/actuation 1 spray intranasal DAILY gabapentin 100 mg PO BEDTIME lancets (OneTouch UltraSoft Lancets) As directed meclizine 25 mg PO TID PRN 10 days metoprolol tartrate 100 mg PO BID warfarin 5 mg See Protocol PO DAILY Nursing Note Pt feeling better after recovering from covid after 3 weeks INR: 2.2 in therapeutic range Medications and supplements reviewed No changes in health, diet, medications, or supplements, Denies any signs and symptoms of bleeding or bruising or clotting. Bleeding, bruising, clotting discussed Nutritional guidance given Dose: 7.5MG X 1 DAY/ 5MG X 6 DAYS F/U INR: 2 WEEKS Patient verbalizes understanding of instructions given Anti-Coag Initial Assessment Social Hx Patient Tobacco Use Status: Former Tobacco user Quit Date: 2011 alcohol intake: former Alcohol intake frequency: does not drink Coding Level of Care Code Est Patient Level 1 Diagnoses Current use of anticoagulant therapy Z79.01 Assessment & Plan Assessment & Plan (1) Current use of anticoagulant therapy: Code(s): Z79.01 - long term acute care registered nurse (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
== END 2023-10-20 11:18 | disposition home or self-care (01) ==
LOC: HO.ACS 11:00
PROVIDERS: PCP Family Medicine; Visit Provider Internal Medicine
DX: Z79.01 Long term (current) use of anticoagulants (principal)

== ENCOUNTER → 2023-10-20 11:00 | Outpatient (BNVA) | payer OTHER, SELFPAY | PROVIDERS: PCP Family Medicine; Visit Provider Internal Medicine | DX: I48.0 Paroxysmal atrial fibrillation (principal); Z79.01 Long term (current) use of anticoagulants; Z51.81 Encounter for therapeutic drug level monitoring | CPT/HCPCS: 85610; 99211 ==

== ENCOUNTER 2023-10-30 11:23 | Outpatient (REF) | payer OTHER, SELFPAY ==
--- NOTE | ~2023-10-30 | US_ITS ---
EXAMINATION: US RETROPERITONEAL LIMITED (RENAL ONLY) CLINICAL INFORMATION: Calculus of kidney. COMPARISON: Renal ultrasound 09/08/2022 and 07/30/2021. CT abdomen and pelvis 07/18/2012. TECHNIQUE: Real-time imaging of the kidneys. Limited visualization due to bowel gas. FINDINGS: RIGHT KIDNEY: 7.8 x 4.2 x 4.9 cm (SAG x AP x TRV). Possible right perinephric fluid and lobulated right renal contour difficult to evaluate due to limited visualization. No hydronephrosis. No renal calculi. LEFT KIDNEY: 8.5 x 3.3 x 3.6 cm (SAG x AP x TRV). Increased left renal echogenicity. Diffuse left renal cortical thinning. Possible left perinephric fluid and lobulated left renal contour are difficult to evaluate due to limited visualization. No hydronephrosis. No renal calculi. Left renal 0.9 cm lower pole cyst with benign features redemonstrated. There is no indication for follow-up imaging. US/US renal BI IMPRESSION: Possible bilateral perinephric fluid and bilateral lobulated renal contours are difficult to evaluate due to limited visualization. No hydronephrosis. No renal calculi. Limited visualization. CT scan images obtained both prior to and following administration of intravenous contrast employing renal mass protocol recommended for further evaluation.
== END 2023-10-30 11:24 | disposition home or self-care (01) ==
LOC: HO.US 11:23
PROVIDERS: PCP Family Medicine; Visit Provider Urology
DX: N20.0 Calculus of kidney (principal)
CPT/HCPCS: 76775

== ENCOUNTER 2023-10-30 14:54 | Outpatient (REF) | payer OTHER, SELFPAY ==
[2023-10-30 16:24] LABS: Cholesterol 266 mg/dL (<200); HDL Cholesterol 28 mg/dL (>40); Triglycerides 433 mg/dL (<150)
[2023-10-30 16:30] LABS: Alanine Aminotransferase 37 U/L (0-40); Albumin Level 3.3 g/dL (3.5-5.0); Alkaline Phosphatase 76 U/L (39-117); Anion Gap 14 (12-20); Aspartate Amino Transferase 32 U/L (5-37); Bilirubin Total 0.5 mg/dL (0.0-1.0); Blood Urea Nitrogen 41 mg/dL (9-16); Calcium 8.4 mg/dL (8.4-10.2); Carbon Dioxide 25 mmol/L (22-29); Chloride 108 mmol/L (96-108); Estimated Glomerular Filt Rate 27; Glucose Random 115 mg/dL (60-115); Potassium 5.4 mmol/L (3.3-5.1); Sodium 142 mmol/L (135-145); Total Protein 7.1 g/dL (6.5-8.0); Uric Acid 4.3 mg/dL (3.4-7.0)
[2023-10-30 16:45] LABS: Vitamin D 25-OH Total 19.7 ng/mL (>30)
[2023-10-30 17:07] LABS: Reflex LDLD? Yes
[2023-10-30 17:31] LABS: Creatinine Urine 76.29 mg/dL
[2023-10-30 17:55] LABS: Microalbum/Creatinine Ratio Ur 2621.5 ug/mg cr (<30); Microalbumin Urine > 2000.0 mg/L
[2023-10-31 19:24] LABS: LDL Cholesterol Direct 60 mg/dL (<100)
== END 2023-10-30 14:55 | disposition home or self-care (01) ==
LOC: HO.HHCL 14:54
PROVIDERS: Visit Provider Family Medicine
DX: E11.22 Type 2 diabetes mellitus with diabetic chronic kidney disease (principal); N18.4 Chronic kidney disease, stage 4 (severe); E78.5 Hyperlipidemia, unspecified; M10.9 Gout, unspecified
CPT/HCPCS: 36415; 80053; 80061; 82043; 82306; 82570; 83721; 84550

== ENCOUNTER 2023-11-06 10:59 | Outpatient (AMB) | payer OTHER, SELFPAY ==
--- NOTE | 2023-11-06 11:16 | MHC.OFFVISCO ---
Intake Intake Visit Reasons: Anticoagulation Allergies lisinopril [LISINOPRIL] Allergy (Severe, Verified 10/31/23 10:36) ACUTE KIDNEY INJURY oxycodone [Percocet] Allergy (Intermediate, Verified 10/31/23 10:36) agitation codeine [CODEINE] Allergy (Unknown, Verified 10/31/23 10:36) AGITATION morphine [MORPHINE] Allergy (Unknown, Verified 10/31/23 10:36) AGITATION, confusion From PERCOCET Allergy (Unknown, Uncoded 10/31/23 10:36) AGITATION Medication List - Last Reconciled 11/06/23 by Gosia Alexander, RN alcohol swabs (Alcohol Prep Pads) 0 pad topical DIRECTED atorvastatin 80 mg PO QAM blood sugar diagnostic (OneTouch Ultra Test strips) As directed carbamide peroxide 6.5% (Ear Drops (carbamide peroxide)) 0 drps otic (ears) cetirizine 5 mg PO DAILY PRN cholecalciferol (vitamin D3) 25 mcg PO DAILY digoxin 125 mcg PO QAM febuxostat (Uloric) 40 mg PO DAILY fenofibrate 160 mg PO DAILY fluticasone propionate 50 mcg/actuation 1 spray intranasal DAILY gabapentin 100 mg PO BEDTIME lancets ([employer]Touch UltraSoft Lancets) As directed meclizine 25 mg PO TID PRN 10 days metoprolol tartrate 100 mg PO BID warfarin 5 mg See Protocol PO DAILY Nursing Note Amb to [facility], accomp by son feeling ok, sts gout better Medications and supplements reviewed- pt is on Uloric for gout for a few weeks, no warfarin interaction No other changes in health, diet, medications, or supplements Denies any unusual signs and symptoms of bruising, bleeding Denies any new Chest pain, SOB, or clotting INR: 1.9 below therapeutic range, son is questioning if he missed any dose, pt denies missing any doses Nutritional guidance given: no greens today then balance greens and reds in diet, son sts he is not a big green eater Dose: increase dose today to 10mg (vs 7.5mg) then resume usual dosing; 7.5mg x 1 day and 5mg x 6 days F/U INR: 2 weeks Patient and son verbalizes understanding of instructions given with accurate read back/ teach back of dosing Anti-Coag Initial Assessment Social Hx Patient Tobacco Use Status: Former Tobacco user Quit Date: 2011 alcohol intake: former Alcohol intake frequency: does not drink Questionnaires HAS-BLED Does the patient had uncontrolled Hypertension?: No Does the patient have renal disease?: Yes Does the patient have liver disease?: No Does the patient have a history of stroke?: Yes Has the patient had major bleeding or predisposition to bleeding?: No Does the patient have labile INRs?: Yes Is the patient over 65 years of age?: Yes Is the patient on medications that gives them a predisposition to bleeding?: Yes HAS-BLED Score: 5 CHADSVASC Age: 66-74 Gender: Male Does the patient have a history of CHF?: No Does the patient have a history of Hypertension?: Yes Does the patient have a history of Stroke/TIA/Thromboembolism?: Yes Does the patient have a history of Vascular Disease (prior TN, PAD or aortic plaque)?: Yes Does the patient have a history of Diabetes?: Yes CHADS VACS Score: 6 Arline Prediction Score Rsk VTE Active Cancer: No Previous VTE, excluding superficial vein thrombosis: No Reduced mobility: No Already known Thrombophilic Condition: Yes With-in last month Trauma and/or Surgery: No Elderly 70 year or older: Yes Heart and/or Respiratory Failure: No Acute Myocardial infarction and/or Ischemic Stroke: Yes Acute Infection and/or Rheumatologic Disorder: No Obesity (BMI 30 or greater): No Ongoing Hormonal Treatment: No Score: 5 Arline Score less than 4; Low Risk of VTE Arline Score 4 or greater; High Risk of VTE Coding Level of Care Code Est Patient Level 1 Diagnoses Current use of anticoagulant therapy Z79.01 Time Spent (min) 15 Results AMB INR Fingerstick AMB INR Fingerstick 1.9 Last Edit by Gosia Alexander RN on 11/06/23 11:15 interface failure Assessment & Plan Assessment & Plan (1) Current use of anticoagulant therapy: Code(s): Z79.01 - FPC (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
[2023-11-06 12:12] LABS: ~PT, ~INR - Anti Coag Clinic 1.9 (0.9-1.1)
== END 2023-11-06 11:30 | disposition home or self-care (01) ==
LOC: HO.ACS 10:59
PROVIDERS: PCP Family Medicine; Visit Provider Internal Medicine
DX: Z79.01 Long term (current) use of anticoagulants (principal)

== ENCOUNTER → 2023-11-06 10:59 | Outpatient (BNVA) | payer OTHER, SELFPAY | PROVIDERS: PCP Family Medicine; Visit Provider Internal Medicine | DX: I48.0 Paroxysmal atrial fibrillation (principal); Z79.01 Long term (current) use of anticoagulants; Z51.81 Encounter for therapeutic drug level monitoring | CPT/HCPCS: 85610; 99211 ==

== ENCOUNTER 2023-11-21 10:24 | Outpatient (AMB) | payer OTHER, SELFPAY ==
--- NOTE | 2023-11-21 10:45 | MHC.OFFVISCO ---
Intake Intake Visit Reasons: Anticoagulation Allergies lisinopril [LISINOPRIL] Allergy (Severe, Verified 11/21/23 10:41) ACUTE KIDNEY INJURY oxycodone [Percocet] Allergy (Intermediate, Verified 11/21/23 10:41) agitation codeine [CODEINE] Allergy (Unknown, Verified 11/21/23 10:41) AGITATION morphine [MORPHINE] Allergy (Unknown, Verified 10/31/23 10:36) AGITATION, confusion From PERCOCET Allergy (Unknown, Uncoded 11/21/23 10:41) AGITATION Medication List - Last Reconciled 11/21/23 by Lisa White, RN alcohol swabs (Alcohol Prep Pads) 0 pad topical DIRECTED atorvastatin 80 mg PO QAM blood sugar diagnostic (OneTouch Ultra Test strips) As directed carbamide peroxide 6.5% (Ear Drops (carbamide peroxide)) 0 drps otic (ears) cetirizine 5 mg PO DAILY PRN cholecalciferol (vitamin D3) 25 mcg PO DAILY digoxin 125 mcg PO QAM febuxostat (Uloric) 40 mg PO DAILY fenofibrate 160 mg PO DAILY fluticasone propionate 50 mcg/actuation 1 spray intranasal DAILY gabapentin 100 mg PO BEDTIME lancets (OneTouch UltraSoft Lancets) As directed meclizine 25 mg PO TID PRN 10 days metoprolol tartrate 100 mg PO BID warfarin 5 mg See Protocol PO DAILY Nursing Note INR: 2.2- in therapeutic range of 2-3 Medications and supplements reviewed No changes in health, diet, medications, or supplements, Denies any signs and symptoms of bleeding or bruising or clotting. Bleeding, bruising, clotting discussed Nutritional guidance given Dose: 5mg x 6, 7.5mg x 1 F/U INR: pt req 4 weeks Patient verbalizes understanding of instructions given pt son present for visit NEW PCP CRISTIANA CORTES- PCP APPT TODAY Anti-Coag Initial Assessment Social Hx Patient Tobacco Use Status: Former Tobacco user Quit Date: 2011 alcohol intake: former Alcohol intake frequency: does not drink Coding Level of Care Code Est Patient Level 1 Diagnoses Current use of anticoagulant therapy Z79.01 Assessment & Plan Assessment & Plan (1) Current use of anticoagulant therapy: Code(s): Z79.01 - alf (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
[2023-11-21 10:46] LABS: Prothrombin Time Whole Bld POC 26.6 sec (11.1-13.5); ~PT, ~INR - Anti Coag Clinic 2.2 (0.9-1.1)
== END 2023-11-21 10:51 | disposition home or self-care (01) ==
LOC: HO.ACS 10:24
PROVIDERS: PCP Physician Assistant; Visit Provider Internal Medicine
DX: Z79.01 Long term (current) use of anticoagulants (principal)

== ENCOUNTER → 2023-11-21 10:24 | Outpatient (BNVA) | payer OTHER, SELFPAY | PROVIDERS: PCP Family Medicine; Visit Provider Internal Medicine | DX: I48.0 Paroxysmal atrial fibrillation (principal); Z79.01 Long term (current) use of anticoagulants; Z51.81 Encounter for therapeutic drug level monitoring | CPT/HCPCS: 85610; 99211 ==

== ENCOUNTER 2023-11-21 14:31 | Outpatient (AMB) | payer OTHER, SELFPAY ==
[2023-11-21 14:58] VITALS: BP 120/88; PULSE 64; RESP 17; O2SAT 96; BMI 29.9
--- NOTE | 2023-11-21 14:58 | A.OFFPC_ITS ---
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 Transferring care from [facility]. Medical records hae been requested today. Die Engraver Required: No Accompanied by: Marilyn Parker Allergies lisinopril [LISINOPRIL] Allergy (Severe, Verified 11/21/23 15:20) ACUTE KIDNEY INJURY oxycodone [Percocet] Allergy (Intermediate, Verified 11/21/23 15:20) agitation codeine [CODEINE] Allergy (Unknown, Verified 11/21/23 15:20) AGITATION morphine [MORPHINE] Allergy (Unknown, Verified 11/21/23 15:20) AGITATION, confusion From PERCOCET Allergy (Unknown, Uncoded 11/21/23 15:03) AGITATION Medication List - Last Reconciled 11/21/23 by Preet An PA-C alcohol swabs (Alcohol Prep Pads) 0 pad topical DIRECTED atorvastatin 80 mg PO QAM carbamide peroxide 6.5% (Ear Drops (carbamide peroxide)) 0 drps otic (ears) cetirizine 5 mg PO DAILY PRN cholecalciferol (vitamin D3) 25 mcg PO DAILY digoxin 125 mcg PO QAM febuxostat (Uloric) 40 mg PO DAILY fenofibrate 160 mg PO DAILY fluticasone propionate 50 mcg/actuation 1 spray intranasal DAILY gabapentin 100 mg PO BEDTIME meclizine 25 mg PO TID PRN 10 days metoprolol tartrate 100 mg PO BID warfarin 5 mg See Protocol PO DAILY Tobacco use date assessed: 11/21/23 Fall risk assessment: No Falls in past year Last assessed Fall Risk: 11/21/23 Dental Screening Dental Screen Date: 11/21/23 Did you have a dental visit in the last 12 months?: No Did you have a dental problem in the last 6 months where you did not have access to dental care?: No Was dental information given to patient?: Yes HPI 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 Previous PCP was at the [facility] Patient has a past medical history significant for AFib (followed by Cardiology), gout, thoracic aortic aneurysm (followed by vascular) hyper tension, CKD stage 3(followed by Nephrology), coronary artery disease. .. AFib: Continues on warfarin for anticoagulation. Also followed by [facility]. .. CKD stage 3: Continues to follow Nephrology. Stable creatinine seems to be from 2.1-2.4. .. Gout: Does take uric acid lowering medication. Does from time to time have pain in his ankles and feet that are short lived. Vaccine : UTD With COVID vaccine, flu vaccine, colonoscopy : Reports he has gotten a few colonoscopies in his lifetime. He reports he is due for new colonoscopy in the next year. [facility] Medical History Gout Personal history of nicotine dependence Chronic kidney disease, stage 3 unspecified Benign prostatic hyperplasia with lower urinary tract symptoms HTN (hypertension) CAD (coronary artery disease) Sinus bradycardia Paroxysmal atrial fibrillation Surgical History Stented coronary artery Hx of colonoscopy Hx of cardiac cath Hx of cystoscopy History of esophagogastroduodenoscopy (EGD) Hx of cataract extraction Family History Mother CAD (coronary artery disease) Diabetes HTN (hypertension) Father CAD (coronary artery disease) Diabetes HTN (hypertension) Social History Housing: Apartment Alcohol intake: former Patient Tobacco Use Status: Former Tobacco user Quit Date: 2015 Years Smoked: 40 +/- e-Cigarette/Vaping Use: Never Used service: No Current occupational status: retired and disabled Cognitive needs: No Hearing needs: No Vision needs: Yes Questionnaire PHQ-9 Over the last 2 weeks, how often have you been bothered by any of the following problems? 1. Little interest or pleasure in doing things: not at all 2. Feeling down, depressed, or hopeless: not at all 3. Trouble falling or staying asleep, or sleeping too much: not at all 4. Feeling tired or having little energy: not at all 5. Poor appetite or overeating: not at all 6. Feeling bad about yourself - or that you are a failure or have let yourself or your family down: not at all 7. Trouble concentrating on things, such as reading the newspaper or watching television: not at all 8. Moving or speaking so slowly that other people could have noticed. Or the opposite - being so fidgety or restless that you have been moving around a lot more than usual: not at all 9. Thoughts that you would be better off or of hurting yourself in some way: not at all Total score: 0 Depression Screening Interpretation: Negative Depression Screening Done: Yes 28850 - PHQ-9 Billing: Yes Source: Developed by Drs. Jasson Ramos, Alanna Allen, Wai Tanner and colleagues, with an educational marcell from [employer]. Thrive Questionnaire Date Thrive assessed: 11/21/23 I am a: Patient What is your living situation today?: I have a steady place to live Within the past 12 months, did the food you bought not last and you didn't have the money to get more?: Never true Within the past 12 months, did you worry whether your food would run out before you got money to buy more?: Never true Do you have trouble paying for medicines?: No Do you have trouble getting transportation to medical appointments?: No Do you have trouble paying your heating and electricity bill?: No Do you have trouble taking care of your child, family member or friend?: No Do you have trouble with day-to-day activities such as bathing, preparing meals, shopping, managing finances, etc.?: No Are you currently unemployed and looking for a job?: No Are you interested in more education?: No Please select the resources that you would like help with: None Currently or been in a relationship where the following occur: no concerns reported AUDIT C Alcohol Use Questionnaire (AUDIT-C) 1. How often do you have a drink containing alcohol?: Never 3. How often do you have six or more drinks on one occasion?: Never Total Score: 0 FAUSTINA-7 AMB Questionnaire FAUSTINA-7 Date FAUSTINA - 7 assessed: 11/21/23 Feeling nervous, anxious, or on edge: 0 = Not at all Not being able to stop or control worryin = Not at all Worrying too much about different things: 0 = Not at all Trouble relaxin = Not at all Being so restless that it is hard to sit still: 0 = Not at all Becoming easily annoyed or irritable: 0 = Not at all Feeling afraid as if something awful might happen: 0 = Not at all Total FAUSTINA-7 score (0-4 normal; 5-9 mild; 10-14 moderate; 15-21 severe): 0 Source: Developed by Drs. Jasson Ramos, Alanna Allen, Wai Tanner and colleagues, with an educational marcell from [employer]. FAUSTINA-7 Assessment Billing FAUSTINA-7 Assessment Tool: FAUSTINA-7 Assessment 20810 Review of Systems Const Denies body aches, Denies chills, Denies excessive sweating, Denies fatigue, Denies fever(s) and Denies headache(s) Eyes Denies blurry vision ENT Denies dysphagia, Denies vertigo, Denies dizziness, Denies headache(s), Denies hearing loss and Denies tinnitus Card Denies chest pain, Denies chest pain with activity, Denies syncope, Denies irregular heart rhythm and Denies dyspnea Resp Denies chest congestion, Denies cough, Denies hemoptysis, Denies dyspnea and Denies wheezing GI Denies abdominal pain, Denies melena, Denies hematochezia, Denies coffee ground emesis, Denies dysphagia, Denies diarrhea, Denies nausea and Denies vomiting Denies difficulty urinating, Denies dysuria, Denies urinary frequency, Denies urinary hesitancy and Denies urinary urgency Musc Denies arthralgias, Denies limited range of motion, Denies muscle cramps and Denies muscle weakness Skin/Breast Denies rash and Denies skin ulcer Neuro Denies Abnormal speech present, Denies confusion, Denies vertigo, Denies dizziness, Denies syncope, Denies headache(s), Denies memory loss and Denies seizure-like activity Psych Denies anxiety, Denies confusion, Denies depression, Denies memory loss, Denies panic attacks and Denies paranoia Endo Denies excessive sweating, Denies fatigue, Denies flushing, Denies polydipsia and Denies polyuria Aller/Immun Denies wheezing Physical exam (Primary Care) Vital Signs: Last Vital Signs Pulse 64 11/21/23 14:58 Resp 17 11/21/23 14:58 BP 120/88 11/21/23 14:58 Pulse Ox 96 11/21/23 14:58 Oxygen Delivery Method Room Air 11/21/23 14:58 BMI result Body Mass Index 29.9 Tobacco/Smoking Status: Tobacco use Status Tobacco use date assessed 11/21/23 11/21/23 15:11 Patient Tobacco Use Status Former Tobacco user 11/21/23 15:00 e-Cigarette/Vaping Use Never Used 11/21/23 15:11 PHQ-9: PHQ-9 Score PHQ-9: Total score 0 11/21/23 15:21 Depression Screening Interpretation: Negative Thrive Assessment: Date of Thrive Assessment Date Thrive assessed 11/21/23 11/21/23 15:11 Currently or been in a relationship where the following occur: no concerns reported Const General: cooperative, comfortable, no acute distress, alert and awake; No confusion Orientation/consciousness: oriented to person, oriented to place, patient oriented x3 and No confusion HENMT Head: Yes normocephalic Ears: external ears normal and TM's normal bilaterally Face and sinus: No sinus tenderness Mouth: Normal oral and palatal mucosa present and tongue normal Teeth and gingiva: dentition normal and gingiva normal Throat: Yes posterior oropharynx normal, Yes tonsils normal and Yes uvula midline Eyes Conjunctivae: conjunctivae normal Sclerae: sclerae normal Pupils: Equal, round and reactive pupils present EOM: EOMs intact bilaterally Direct Ophthalmoscopy: No no photophobia Neck Neck: Yes no lymphadenopathy, No tender and Yes no JVD Thyroid: Thyroid normal Carotids: no bruits Chest Chest palpation & inspection: no tenderness Resp Effort & Inspection: normal respiratory effort, no audible wheezes, not labored and no stridor Auscultation: no crackles, no rales, no rhonchi and no wheezes Cardio Jugular venous distension: no JVD Rate: regular rate, not bradycardic and not tachycardic Rhythm: regular rhythm Bruits: no carotid bruits Peripheral pulses: Peripheral pulses 2+ throughout GI Inspection: Yes normal to inspection, No abdominal wall ecchymosis and No visible herniation Palpation (GI): Soft to palpation, nontender, no guarding, not rigid and No hepatosplenomegaly present Auscultation: normoactive bowel sounds General: Yes no CVA tenderness Back/Spine/Pelvis Back: no CVA tenderness and No back tenderness Cervical Spine: cervical ROM normal Thoracic/Lumbar Spine: thoracic and lumbar spine normal to inspection, straight leg raise negative bilaterally, No thoraco-lumbar ROM limited and No lumbar spinal tenderness Skin Lesions: no lesions Rashes: no rashes Wounds: no wounds Neuro General: oriented to person, oriented to place, patient oriented x3, CN's II-XI intact bilaterally and No confusion Cranial nerves: Yes Equal, round and reactive pupils present and Yes Normal accommodation reflex present Cognition (Neuro): normal cognition Speech: No Abnormal speech present Gait exam (Neuro): Normal gait present Motor exam (neuro): 5/5 motor strength present throughout Extrem Right upper extremity: full ROM; no cyanosis Left upper extremity: full ROM; no cyanosis Right lower extremity: no edema Left lower extremity: no edema Psych Appearance: grossly normal Mental Status: mental status grossly normal Affect: normal affect Attitude: cooperative Thought process: Normal thought process present Assessment and Plan Assessment & Plan (1) Annual physical exam: Code(s): Z00.00 - Encounter for general adult medical examination without abnormal findings (2) Atrial fibrillation: Code(s): I48.91 - Unspecified atrial fibrillation Qualifiers: Atrial fibrillation type: permanent Qualified Code(s): I48.21 - Permanent atrial fibrillation Plan: Continues on warfarin in INRs have been fairly stable. No overt signs of bleeding. He is under rhythm and rate control with digoxin and metoprolol. No recent episodes chest discomfort, dizziness or heart palpitations. (3) Chronic kidney disease, stage 3 unspecified: Code(s): N18.30 - Chronic kidney disease, stage 3 unspecified Qualifiers: Chronic kidney disease stage 3 subtype: stage 3a (GFR 45-59) Qualified Code(s): N18.31 - Chronic kidney disease, stage 3a Plan: Followed by Nephrology. Did have biopsy years ago showing interstitial nephritis., Creatinine seems to be stable around 2.1-2.5. Will avoid nephrotoxin medication. (4) Aneurysm of descending thoracic aorta: Code(s): I71.2 - Thoracic aortic aneurysm, without rupture Qualifiers: Presence of rupture: without rupture Qualified Code(s): I71.23 - Aneurysm of the descending thoracic aorta, without rupture Plan: He is followed by vascular surgeon is under surveillance for thoracic aneurysm. Most recent thoracic aneurysm showing 4.1 cm. (5) CAD (coronary artery disease): Code(s): I25.10 - Atherosclerotic heart disease of [place] coronary artery without angina pectoris Qualifiers: Associated angina: without angina Coronary Disease-Associated Artery/Lesion type: [place] artery [place] vs. 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 Continues on high-dose statin therapy. Goal LDL to be below 70 (6) HTN (hypertension): Code(s): I10 - Essential (primary) hypertension Qualifiers: Hypertension type: primary hypertension Qualified Code(s): I10 - Essential (primary) hypertension Plan: Blood pressure stable today in office. 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 Goal blood pressures to remain below 140/90. (7) Presbyopia of both eyes: Code(s): H52.4 - Presbyopia Plan: Does have left eye chronic blurriness from on I issue from childhood. Would like to see an companion caregiver (8) Lower extremity edema: Code(s): R60.0 - Localized edema Plan: Has trace edema chronically in his lower extremities. Does use compression socks which are helpful. Would like a new paper script for compression stockings. Orders: Orders Lipid Panel 11/21/23 I25.10 - Atherosclerotic heart disease of [place] coronary artery without angina pectoris Microalbumin, Random (w Creat) 11/21/23 I10 - Essential (primary) hypertension Comprehensive [place]. Panel Fast 11/21/23 I10 - Essential (primary) hypertension Prostate Specific Antigen Scr 11/21/23 I10 - Essential (primary) hypertension, Z12.5 - Encounter for screening for malignant neoplasm of prostate Complete Blood Count no Diff 11/21/23 I25.10 - Atherosclerotic heart disease of [place] coronary artery without angina pectoris Medications: New compression socks, large As directed 2 ea 0RF R60.0 - Localized edema Coding Level of Care Code New Pt Prev Care >65yr (26168) Diagnoses Annual physical exam Z00.00 Permanent atrial fibrillation I48.21 Atrial fibrillation type: permanent Stage 3a chronic kidney disease N18.31 Chronic kidney disease stage 3 subtype: stage 3a (GFR 45-59) Aneurysm of descending thoracic aorta without rupture I71.23 Presence of rupture: without rupture Coronary artery disease involving [place] coronary artery of [place] heart without angina pectoris I25.10 Associated angina: without angina Coronary Disease-Associated Artery/Lesion type: [place] artery [place] vs. transplanted heart: [place] heart Primary hypertension I10 Hypertension type: primary hypertension Presbyopia of both eyes H52.4 Lower extremity edema R60.0 Additional Codes FAUSTINA-7 Assessment Billing - FAUSTINA-7 Assessment Tool: FAUSTINA-7 Assessment 42513 ([id number])
== END 2023-11-21 15:44 | disposition home or self-care (01) ==
PROVIDERS: PCP Family Medicine; Visit Provider Physician Assistant
DX: Z00.00 Encounter for general adult medical examination without abnormal findings (principal); I48.21 Permanent atrial fibrillation; I12.9 Hypertensive chronic kidney disease with stage 1 through stage 4 chronic kidney disease, or unspecified chronic kidney disease; N18.31 Chronic kidney disease, stage 3a; I25.10 Atherosclerotic heart disease of native coronary artery without angina pectoris; H52.4 Presbyopia; R60.0 Localized edema
CPT/HCPCS: 99387

== ENCOUNTER 2023-12-07 14:46 | Outpatient (AMB) | payer OTHER, SELFPAY ==
[2023-12-07 14:52] VITALS: BP 137/94; BMI 30.6
--- NOTE | 2023-12-07 14:52 | MHC.OFFVIS ---
Intake Vital Signs 12/07/23 14:52 Height 5 ft 6 in Weight 189 lb 9.561 oz BMI 30.6 BP 137/94 H Blood Pressure Location Lt brachial Position Sitting Intake Visit Reasons: Abdominal discomfort, Excessive gas Intake Note: Patient presents to in office visit today as a new patient for abdominal discomfort and excessive gas. CC: Patient c/o abdominal discomfort and excessive gas for about 2 years. Denies other GI symptoms. 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 He is referred by Preet An of [facility] primary care. PMX Smoker AFib Chronic kidney disease stage 3 Hypertension Coronary artery disease Gout Descending thoracic aortic aneurysm Nephrolithiasis Lower extremity edema Chronic anticoagulation BPH Tubular adenoma-2011 and 2018 * SURGICAL HISTORY Coronary artery stent Cystoscopy EGD/colonoscopy -2011 DR. WILCOX, 2019 COLONOSCOPY-WILCOX= TA Cataract extraction * ALLERGIES Lisinopril Oxycodone Codeine Morphine * [facility]: Laboratory Tests 09/12/23 10/30/23 10:04 14:57 WBC 12.7 H Hgb 15.5 Hct 49.2 Creatinine 2.34 H Estimated GFR 27 Total Bilirubin 0.5 AST 32 ALT 37 Alkaline Phosphata se 76 TODAY'S VISIT Taiwanese # son translates per pt request He is here today with his sone who is supportive. He has had trouble with gas for about 2 years, juni in the afternoon. The pt says he has mostly normal BM's but tends towards the CIC side. No Diarrhea. He can not specifically ID any mediation changes around this time, but admits he had a lot of new health problems around this time, juni with his heart. He also noted more CIC when he was tx'ed for this. He has been on the fenofibrate for many many years before this. He has had a lot of diet changes between the coumadin therapy and his gout, NIDDM, etc. He will be seeing a practice performance manager soon. NO N/V or dyspepsia. He tends to eat just twice a day an egg and some coffee in the morning, maybe another coffee at noon, and his larger meal in the afternoon. He does not have the gas and bloating every day only on some days which leads me to believe it might be related to what he is eating. This also seems to be a problem if he knows he has to sit for long period of time, for example on an airplane, so it is possible this is related to mild anxiety. What seems to bother him the most is the noise that his stomach makes rather than passing large volumes of flatus or belching. Still he denies any outright abdominal pain. He does not drink much soda or carbonated beverages. He does use splint a in his coffee about twice a day. At this point I think I am going to give him a copy of the FODMAP diet and ask him to keep a diary of the foods he eats and whether not he has gas for couple of weeks to see if we can dry no connections. Will also prescribe him some simethicone for gas relief and I will consider if dicyclomine as needed going forward. FODMAP in Sammarinese and Taiwanese so son can help him. RX simethicone trial. Would consider RAST but since he does not have diarrhea this may be a stretch. Could be EPI, could consider creon or stool testing. I want him to keep a daily diary of foods eaten and gas sx. ROV 4 weeks. [facility] Medical History (Updated 12/07/23 @ 15:14 by SAVANNAH Garner) History of TIA (transient ischemic attack) Gout Personal history of nicotine dependence Chronic kidney disease, stage 3 unspecified Benign prostatic hyperplasia with lower urinary tract symptoms HTN (hypertension) CAD (coronary artery disease) Sinus bradycardia Paroxysmal atrial fibrillation Surgical History Stented coronary artery Hx of colonoscopy Hx of cardiac cath Hx of cystoscopy History of esophagogastroduodenoscopy (EGD) Hx of cataract extraction Family History Mother CAD (coronary artery disease) Diabetes HTN (hypertension) Father CAD (coronary artery disease) Diabetes HTN (hypertension) Social History Housing: Apartment Alcohol intake: former Patient Tobacco Use Status: Former Tobacco user Quit Date: 2015 Years Smoked: 40 +/- e-Cigarette/Vaping Use: Never Used service: No Current occupational status: retired and disabled Cognitive needs: No Hearing needs: No Vision needs: Yes Review of Systems Const Denies fatigue, Denies fever(s), Denies night sweats, Denies poor appetite and Denies weight loss Eyes Details: glasses Reports requires corrective lenses ENT Reports Normal hearing present, Denies dental pain, Denies dysphagia, Denies hearing loss, Denies mouth pain, Denies odynophagia, Denies throat swelling, Denies tongue swelling and Reports other (Dentition adequate) Card Reports no additional complaints Resp Reports no additional complaints GI Denies abdominal pain, Denies melena, Reports bloating, Denies hematochezia, Denies constipation, Denies GI cramping, Denies dysphagia, Reports excessive flatus, Denies early satiety, Denies heartburn, Denies diarrhea, Denies nausea, Denies odynophagia, Denies vomiting, Denies hematemesis and Reports other (Borborygmus) Skin/Breast Denies pruritus, Denies lesions, Denies rash and Denies jaundice Neuro Reports Normal hearing present and Denies Abnormal speech present Endo Denies fatigue Aller/Immun Denies throat swelling and Denies tongue swelling Physical Exam Vital Signs: Last Vital Signs BP 137/94 H 12/07/23 14:52 BMI result Body Mass Index 30.6 Const General: cooperative, no acute distress, well developed and well groomed Nutritional Appearance: well nourished and obese Orientation/consciousness: oriented to person, oriented to place and oriented to time Limitations: language barrier HEENT Head: Yes normocephalic and Yes atraumatic Eyes General: appearance normal, both eyes and all related structures Pupils: Equal, round and reactive pupils present Neck Neck: Yes normal visual inspection and Yes no lymphadenopathy Thyroid: Thyroid normal Resp Effort & Inspection: normal respiratory effort and able to speak in complete sentences Auscultation: clear to auscultation bilaterally Cardio Rate: regular rate Rhythm: regular rhythm Heart sounds: Normal, physiologic split S2 sound present Peripheral pulses: radial pulses present and posterior tibial pulses present GI Inspection: No distended, No Abdominal panniculus present and Yes obesity Palpation (GI): Soft to palpation, nontender, no guarding, not rigid and No hepatosplenomegaly present Percussion: Yes normal to percussion Auscultation: normal bowel sounds Rectal Exam - Male: Yes deferred Skin General skin exam: no rashes or lesions noted, turgor normal, skin not dry, no jaundice, No spider nevi and no striae Rashes: no rashes Nails: normal Neuro General: oriented to person, oriented to place and oriented to time Cranial nerves: Yes Equal, round and reactive pupils present and Yes Normal hearing present Speech: No Abnormal speech present Extrem General: Yes normal to inspection, No clubbing, No cyanosis and No edema Psych Appearance: grossly normal and well kempt Mental Status: mental status grossly normal Speech and movement: Normal speech and movement present Affect: normal affect Attitude: cooperative Thought process: Normal thought process present and not confabulating Thought content: Normal thought content present Insight: Fair insight present (Psych) Judgement: Fair judgement present (Psych) Assessment & Plan Assessment & Plan (1) Gas bloat syndrome: Code(s): K92.89 - Other specified diseases of the digestive system (2) Tubular adenoma of colon: Comment: 2011 AND 2018-WILCOX due for repeat colonoscopy in 2023 Code(s): D12.6 - Benign neoplasm of colon, unspecified (3) Atrial fibrillation: Code(s): I48.91 - Unspecified atrial fibrillation Qualifiers: Atrial fibrillation type: permanent Qualified Code(s): I48.21 - Permanent atrial fibrillation (4) Personal history of nicotine dependence: Code(s): Z87.891 - Personal history of nicotine dependence (5) Chronic kidney disease, stage 3 unspecified: Code(s): N18.30 - Chronic kidney disease, stage 3 unspecified Qualifiers: Chronic kidney disease stage 3 subtype: stage 3a (GFR 45-59) Qualified Code(s): N18.31 - Chronic kidney disease, stage 3a (6) Current use of anticoagulant therapy: Code(s): 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 He has had trouble with gas for about 2 years, juni in the afternoon. The pt says he has mostly normal BM's but tends towards the CIC side. No Diarrhea. He can not specifically ID any mediation changes around this time, but admits he had a lot of new health problems around this time, juni with his heart. He also noted more CIC when he was tx'ed for this. He has been on the fenofibrate for many many years before this. He has had a lot of diet changes between the coumadin therapy and his gout, NIDDM, etc. He will be seeing a practice performance manager soon. NO N/V or dyspepsia. He tends to eat just twice a day an egg and some coffee in the morning, maybe another coffee at noon, and his larger meal in the afternoon. He does not have the gas and bloating every day only on some days which leads me to believe it might be related to what he is eating. This also seems to be a problem if he knows he has to sit for long period of time, for example on an airplane, so it is possible this is related to mild anxiety. What seems to bother him the most is the noise that his stomach makes rather than passing large volumes of flatus or belching. Still he denies any outright abdominal pain. He does not drink much soda or carbonated beverages. He does use splint a in his coffee about twice a day. At this point I think I am going to give him a copy of the FODMAP diet and ask him to keep a diary of the foods he eats and whether not he has gas for couple of weeks to see if we can dry no connections. Will also prescribe him some simethicone for gas relief and I will consider if dicyclomine as needed going forward. FODMAP in Sammarinese and Taiwanese so son can help him. RX simethicone trial. Would consider RAST but since he does not have diarrhea this may be a stretch. Could be EPI, could consider creon or stool testing. I want him to keep a daily diary of foods eaten and gas sx. ROV 4 weeks. Medications: New simethicone after meals 180 mg PO QID 30 days 120 caps 3RF Coding Level of Care Code New Pt Level 3 (71367) Diagnoses Gas bloat syndrome K92.89 Tubular adenoma of colon D12.6 Permanent atrial fibrillation I48.21 Atrial fibrillation type: permanent Personal history of nicotine dependence Z87.891 Stage 3a chronic kidney disease N18.31 Chronic kidney disease stage 3 subtype: stage 3a (GFR 45-59) Current use of anticoagulant therapy Z79.01
== END 2023-12-07 15:45 | disposition home or self-care (01) ==
PROVIDERS: PCP Physician Assistant; Visit Provider Nurse Practitioner
DX: K92.89 Other specified diseases of the digestive system (principal); D12.6 Benign neoplasm of colon, unspecified; I48.21 Permanent atrial fibrillation; Z87.891 Personal history of nicotine dependence; N18.31 Chronic kidney disease, stage 3a; Z79.01 Long term (current) use of anticoagulants
CPT/HCPCS: 99203

== ENCOUNTER → 2023-12-07 14:46 | Outpatient (BNVA) | payer OTHER, SELFPAY | PROVIDERS: PCP Physician Assistant; Visit Provider Nurse Practitioner | DX: K92.89 Other specified diseases of the digestive system (principal); D12.6 Benign neoplasm of colon, unspecified; I48.21 Permanent atrial fibrillation; N18.31 Chronic kidney disease, stage 3a; Z79.01 Long term (current) use of anticoagulants; Z87.891 Personal history of nicotine dependence | CPT/HCPCS: 99202 ==

== ENCOUNTER 2023-12-18 11:04 | Outpatient (AMB) | payer OTHER, SELFPAY ==
[2023-12-18 11:18] LABS: Prothrombin Time Whole Bld POC 36.4 sec (11.1-13.5)
--- NOTE | 2023-12-18 11:25 | MHC.OFFVISCO ---
Intake Intake Visit Reasons: Anticoagulation Allergies lisinopril [LISINOPRIL] Allergy (Severe, Verified 12/18/23 11:10) ACUTE KIDNEY INJURY oxycodone [Percocet] Allergy (Intermediate, Verified 12/18/23 11:10) agitation codeine [CODEINE] Allergy (Unknown, Verified 12/18/23 11:10) AGITATION morphine [MORPHINE] Allergy (Unknown, Verified 12/18/23 11:10) AGITATION, confusion From PERCOCET Allergy (Unknown, Uncoded 12/18/23 11:10) AGITATION Medication List - Last Reconciled 12/18/23 by Gosia Alexander, BINA atorvastatin 80 mg PO QAM carbamide peroxide 6.5% (Ear Drops (carbamide peroxide)) 0 drps otic (ears) cetirizine 5 mg PO DAILY PRN cholecalciferol (vitamin D3) 25 mcg PO DAILY compression socks, large As directed digoxin 125 mcg PO QAM febuxostat (Uloric) 40 mg PO DAILY fenofibrate 160 mg PO DAILY fluticasone propionate 50 mcg/actuation 1 spray intranasal DAILY 30 days gabapentin 100 mg PO BEDTIME meclizine 25 mg PO TID PRN 10 days metoprolol tartrate 100 mg PO BID simethicone 180 mg PO QID 30 days warfarin 5 mg See Protocol PO DAILY Nursing Note Amb to [facility] accomp by son feeling well, sts they are leaving for [place] in the morning, they are not sure how long they will be there 3-6 weeks Medications and supplements reviewed, started taking melatonin last week, sts has had a total of 3 doses- did not call us discused with pt and son melatonin raises INR- sts it really didn't help that much- through assessment pt has been falling asleep after dinner then having difficulty going to sleep at usual bedtime reviewed sleep hygiene concerns and try to stay active after evening meal to have better chance of restful sleep No other changes in health, diet, medications, or supplements Denies any unusual signs and symptoms of bruising, bleeding Denies any new Chest pain, SOB, or clotting INR: 3.0 top of therapeutic range Nutritional guidance given: greens once lands in [place] and balance greens and reds in diet. 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 order for INR (x2 ) while traveling call to PCP office spoke with Estrada CURRAN req for OP lab slips for PT/INR , Pt instructed to call us if lab visit on 01/15, fax cover sheet to pt with instructions to test on that day (01/15) early am if still in [place] and have results faxed to [facility] pt will come to [facility] 01/15 if local Patient and son verbalizes understanding of instructions given with accurate read back/ teach back of dosing and headed to PCP office acrosss the street to picker / packer lab req Anti-Coag Initial Assessment Social Hx Patient Tobacco Use Status: Former Tobacco user Quit Date: 2015 alcohol intake: former Alcohol intake frequency: does not drink Coding Level of Care Code Est Patient Level 1 Diagnoses Current use of anticoagulant therapy Z79.01 Time Spent (min) 20 Assessment & Plan Assessment & Plan (1) Current use of anticoagulant therapy: Code(s): 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
== END 2023-12-18 12:00 | disposition home or self-care (01) ==
LOC: HO.ACS 11:04
PROVIDERS: PCP Physician Assistant; Visit Provider Internal Medicine
DX: Z79.01 Long term (current) use of anticoagulants (principal)

== ENCOUNTER → 2023-12-18 11:04 | Outpatient (BNVA) | payer OTHER, SELFPAY | PROVIDERS: PCP Physician Assistant; Visit Provider Internal Medicine | DX: I48.0 Paroxysmal atrial fibrillation (principal); Z79.01 Long term (current) use of anticoagulants; Z51.81 Encounter for therapeutic drug level monitoring | CPT/HCPCS: 85610; 99211 ==

== ENCOUNTER 2024-01-22 10:50 | Outpatient (AMB) | payer OTHER, SELFPAY ==
[2024-01-22 11:00] LABS: Prothrombin Time Whole Bld POC 30.4 sec (11.1-13.5); ~PT, ~INR - Anti Coag Clinic 2.5 (0.9-1.1)
--- NOTE | 2024-01-22 11:06 | MHC.OFFVISCO ---
Intake Intake Visit Reasons: Anticoagulation Allergies lisinopril [LISINOPRIL] Allergy (Severe, Verified 01/22/24 10:55) ACUTE KIDNEY INJURY oxycodone [Percocet] Allergy (Intermediate, Verified 01/22/24 10:55) agitation codeine [CODEINE] Allergy (Unknown, Verified 01/22/24 10:55) AGITATION morphine [MORPHINE] Allergy (Unknown, Verified 01/22/24 10:55) AGITATION, confusion From PERCOCET Allergy (Unknown, Uncoded 01/22/24 10:55) AGITATION Medication List - Last Reconciled 01/22/24 by Gosia Cano RN atorvastatin 80 mg PO QAM carbamide peroxide 6.5% (Ear Drops (carbamide peroxide)) 0 drps otic (ears) cetirizine 5 mg PO DAILY PRN cholecalciferol (vitamin D3) 25 mcg PO DAILY compression socks, large As directed digoxin 125 mcg PO QAM febuxostat (Uloric) 40 mg PO DAILY fenofibrate 160 mg PO DAILY fluticasone propionate 50 mcg/actuation 1 spray intranasal DAILY 30 days gabapentin 100 mg PO BEDTIME meclizine 25 mg PO TID PRN 10 days metoprolol tartrate 100 mg PO BID simethicone 180 mg PO QID 30 days warfarin 5 mg See Protocol PO DAILY Nursing Note INR: 2.5 in therapeutic rangeof 2-3 Medications and supplements reviewed No changes in health, diet, medications, or supplements, Denies any signs and symptoms of bleeding or bruising or clotting. Bleeding, bruising, clotting discussed Nutritional guidance given to continue to balance greens and reds Dose: continue same dose of 5mg daily except 7.5mg on Mondays F/U INR: 1 month Patient verbalizes understanding of instructions given Anti-Coag Initial Assessment Social Hx Patient Tobacco Use Status: Former Tobacco user Quit Date: 2015 alcohol intake: former Alcohol intake frequency: does not drink Coding Level of Care Code Est Patient Level 1 Diagnoses Current use of anticoagulant therapy Z79.01 Results AMB INR Fingerstick AMB INR Fingerstick 2.5 Last Edit by Gosia Cano RN on 01/22/24 11:00 interface delay Assessment & Plan Assessment & Plan (1) Current use of anticoagulant therapy: Code(s): 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
== END 2024-01-22 11:08 | disposition home or self-care (01) ==
LOC: HO.ACS 10:50
PROVIDERS: PCP Physician Assistant; Visit Provider Internal Medicine
DX: Z79.01 Long term (current) use of anticoagulants (principal)

== ENCOUNTER → 2024-01-22 10:50 | Outpatient (BNVA) | payer OTHER, SELFPAY | PROVIDERS: PCP Physician Assistant; Visit Provider Internal Medicine | DX: I48.0 Paroxysmal atrial fibrillation (principal); Z79.01 Long term (current) use of anticoagulants; Z51.81 Encounter for therapeutic drug level monitoring | CPT/HCPCS: 85610; 99211 ==

== ENCOUNTER 2024-01-25 12:32 | Outpatient (REF) | payer OTHER, SELFPAY ==
[2024-01-25 15:04] LABS: Anion Gap 12 (12-20); Blood Urea Nitrogen 49 mg/dL (9-16); Calcium 9.1 mg/dL (8.4-10.2); Carbon Dioxide 28 mmol/L (22-29); Chloride 107 mmol/L (96-108); Estimated Glomerular Filt Rate 24; Potassium 5.2 mmol/L (3.3-5.1); Sodium 142 mmol/L (135-145); Uric Acid 9.5 mg/dL (3.4-7.0)
== END 2024-01-25 12:33 | disposition home or self-care (01) ==
LOC: HO.LAB 12:32
PROVIDERS: PCP Physician Assistant; Visit Provider Internal Medicine Hypertension Specialist
DX: N18.30 Chronic kidney disease, stage 3 unspecified (principal)
CPT/HCPCS: 36415; 80051; 82310; 82565; 84520; 84550

== ENCOUNTER 2024-01-26 14:25 | Outpatient (AMB) | payer OTHER, SELFPAY ==
--- NOTE | 2024-01-26 14:27 | MHC.OFFVIS ---
Intake Intake Visit Reasons: 1Y US (10/30/23) Intake Note: Patient presents today for a yearly follow-up Meds- None Allergies to Antibiotic- No Known Allergies Blood Thinner- Warfarin Post Void Residual: 0ml Patient Symptoms: Patient stated he does not have any urinary problems today. Training And Development Officer Required: No Accompanied by: Son Allergies lisinopril [LISINOPRIL] Allergy (Severe, Verified 01/26/24 14:34) ACUTE KIDNEY INJURY oxycodone [Percocet] Allergy (Intermediate, Verified 01/26/24 14:34) agitation codeine [CODEINE] Allergy (Unknown, Verified 01/26/24 14:34) AGITATION morphine [MORPHINE] Allergy (Unknown, Verified 01/26/24 14:34) AGITATION, confusion From PERCOCET Allergy (Unknown, Uncoded 01/26/24 14:34) AGITATION HPI HPI Comments History of Present Illness Details Ziggy is a pleasant male. He is a patient of Dr. Zacarias. He is seen for following urologic conditions - nephrolithiasis - BPH Accompanied by his son who is translating Stable imaging Effective urinary parameters PRN followup Nephrolithiasis Stable No disease recurrence Imaging - 08/10 renal ultrasound no evidence of stone - 09/10 renal ultrasound evidence of stones PSA 08/10 1.0 Therapeutic plan - fluid intake with hydration lemon water encouraged PFSH Medical History History of TIA (transient ischemic attack) Gout Personal history of nicotine dependence Chronic kidney disease, stage 3 unspecified Benign prostatic hyperplasia with lower urinary tract symptoms HTN (hypertension) CAD (coronary artery disease) Sinus bradycardia Paroxysmal atrial fibrillation Surgical History Stented coronary artery Hx of colonoscopy Hx of cardiac cath Hx of cystoscopy History of esophagogastroduodenoscopy (EGD) Hx of cataract extraction Family History Mother CAD (coronary artery disease) Diabetes HTN (hypertension) Father CAD (coronary artery disease) Diabetes HTN (hypertension) Social History Housing: Apartment Alcohol intake: former Patient Tobacco Use Status: Former Tobacco user Quit Date: 2016 Years Smoked: 40 +/- e-Cigarette/Vaping Use: Never Used service: No Current occupational status: retired and disabled Cognitive needs: No Hearing needs: No Vision needs: Yes Review of Systems Const Denies chills and Denies fever(s) Card Reports no additional complaints and Denies syncope Resp Denies cough GI Denies abdominal pain and Denies heartburn Reports as per HPI and Denies change in libido Neuro Denies syncope Psych Denies change in libido Endo Denies change in libido Physical Exam Const General: cooperative, healthy appearing, comfortable and no acute distress Orientation/consciousness: patient oriented x3 HEENT Face and sinus: Yes normal facial exam Mouth: moist mucous membranes Neck Neck: Yes normal visual inspection, Yes full ROM and Yes trachea midline Chest Chest palpation & inspection: normal inspection of the chest Resp Effort & Inspection: normal respiratory effort, able to speak in complete sentences and no respiratory distress GI Inspection: Yes normal to inspection Back/Spine/Pelvis Cervical Spine: normal cervical lordosis Thoracic/Lumbar Spine: thoracic and lumbar spine normal to inspection Skin General skin exam: no rashes or lesions noted Neuro General: patient oriented x3, gait normal, tone normal and moves all extremities Extrem General: Yes normal to inspection and Yes capillary refill normal Office Procedures Post Void Residual Post Residual Void Post Void Residual (PVR): 0 [id number] Void Residual by ultrasound Assessment & Plan Assessment & Plan (1) Nephrolithiasis: Code(s): N20.0 - Calculus of kidney (2) Benign prostatic hyperplasia with lower urinary tract symptoms: Code(s): N40.1 - Benign prostatic hyperplasia with lower urinary tract symptoms Plan P.r.n. follow-up Orders: Orders AMB Post Void Residual by ultrasound Today R33.9 - Retention of urine, unspecified Patient Instructions: Imaging studies, laboratory and physical exam results were discussed and reviewed in detail. No major barriers to patient understanding were identified. An opportunity to ask questions regarding the treatment plan was provided. All questions were answered. The patient expressed understanding and agreement with the above treatment plan. The patient is aware they should contact our office by phone for worsening of their current condition or the appearance of new urologic symptoms. Compliance is encouraged with any medications and followup testing that is ordered. It is a privilege to participate in the urologic care of your patient. If you have any questions or concerns regarding treatment for the above conditions, or other urologic issues, please do not hesitate to contact me. The office telephone contact is [phone]. This note is constructed using voice recognition software. While every effort has been made to ensure accuracy shipping room helper errors may have been included. Yours sincerely, Dr Eldon Deluca MD, [facility] - Urology Providers of Expert, Compassionate Care for the Genitourinary System Coding Level of Care Code Est Pt Level 4 (50132) Diagnoses Nephrolithiasis N20.0 Benign prostatic hyperplasia with lower urinary tract symptoms N40.1 CPT Codes Post Residual Void - PVR CPT Code: 30089-Uwhw Void Residual by ultrasound ([id number])
== END 2024-01-26 14:51 | disposition home or self-care (01) ==
PROVIDERS: PCP Family Medicine; Visit Provider Urology
DX: N20.0 Calculus of kidney (principal); N40.1 Benign prostatic hyperplasia with lower urinary tract symptoms
CPT/HCPCS: 99213

== ENCOUNTER → 2024-01-26 14:25 | Outpatient (BNVA) | payer OTHER, SELFPAY | PROVIDERS: PCP Family Medicine; Visit Provider Urology | DX: N40.1 Benign prostatic hyperplasia with lower urinary tract symptoms (principal); N20.0 Calculus of kidney | CPT/HCPCS: 51798; 99212 ==

== ENCOUNTER 2024-01-30 12:29 | Outpatient (AMB) | payer OTHER, SELFPAY ==
--- NOTE | 2024-01-30 12:31 | HO.NEPHOV_ITS ---
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 He is here for regular follow-up. Accompanied by son. History of gout he was treated with a course of prednisone. He took Uloric for a month and stopped it REcently returned from [place] Ate plenty of Papaya and fruits/Nuts PFS Medical History History of TIA (transient ischemic attack) Gout Personal history of nicotine dependence Chronic kidney disease, stage 3 unspecified Benign prostatic hyperplasia with lower urinary tract symptoms HTN (hypertension) CAD (coronary artery disease) Sinus bradycardia Paroxysmal atrial fibrillation Surgical History Stented coronary artery Hx of colonoscopy Hx of cardiac cath Hx of cystoscopy History of esophagogastroduodenoscopy (EGD) Hx of cataract extraction Family History Mother CAD (coronary artery disease) Diabetes HTN (hypertension) Father CAD (coronary artery disease) Diabetes HTN (hypertension) Social History Housing: Apartment Alcohol intake: former Patient Tobacco Use Status: Former Tobacco user Quit Date: 2015 Years Smoked: 40 +/- e-Cigarette/Vaping Use: Never Used service: No Current occupational status: retired and disabled Cognitive needs: No Hearing needs: No Vision needs: Yes Vital Signs 01/30/24 12:33 Height 5 ft 6 in Weight 193 lb BMI 31.1 BP 126/82 Blood Pressure Location Lt brachial Position Sitting Pulse 95 Pulse Source Pulse Oximeter Pulse Oximetry (%) 98 Oxygen Delivery Method Room Air Physical Exam Vital Signs: Last Vital Signs Pulse 95 01/30/24 12:33 BP 126/82 01/30/24 12:33 Pulse Ox 98 01/30/24 12:33 Oxygen Delivery Method Room Air 01/30/24 12:33 BMI result Body Mass Index 31.1 Const General: comfortable Nutritional Appearance: well nourished Orientation/consciousness: patient oriented x3 HEENT Head: No normal to inspection Mouth: moist mucous membranes Neck Neck: Yes supple and Yes no JVD Resp Auscultation: clear to auscultation bilaterally, no rales and rub present Cardio Jugular venous distension: no JVD Palpation: no palpable S3 and no palpable S4 Heart sounds: no rubs GI Palpation (GI): Soft to palpation and nontender Percussion: No Fluid wave present General: Yes no CVA tenderness Back/Spine/Pelvis Back: no CVA tenderness Skin General skin exam: no rashes or lesions noted Neuro General: patient oriented x3 Extrem General: Yes no pedal edema and No clubbing Assessment & Plan Assessment & Plan (1) Chronic kidney disease, stage 3 unspecified: Code(s): N18.30 - Chronic kidney disease, stage 3 unspecified Qualifiers: Chronic kidney disease stage 3 subtype: stage 3a (GFR 45-59) Qualified Code(s): N18.31 - Chronic kidney disease, stage 3a Plan: Chronic disease due to interstitial nephritis by biopsy. Initial biopsy was done only [facility] and no tissue was obtained. Repeat biopsy was done and was [facility] which revealed interstitial nephritis with global sclerosis. At present renal function is at baseline. Continue to avoid nephrotoxic agents. Will monitor renal function closely (2) HTN (hypertension): Code(s): I10 - Essential (primary) hypertension Qualifiers: Hypertension type: primary hypertension Qualified Code(s): I10 - Essential (primary) hypertension Plan: Blood pressure is acceptable No changes made to the medications Low-salt diet (3) Gout: Code(s): M10.9 - Gout, unspecified Plan: Seems to be under control. Restart Uloric to lower uric acid We discussed low purine diet (4) Hyperkalemia: Code(s): E87.5 - Hyperkalemia Plan: Low K diet Recheck- if elevate, would add Lokelma Orders: Orders Basic Metabolic Panel 3 Weeks E87.5 - Hyperkalemia, N18.30 - Chronic kidney disease, stage 3 unspecified Medications: Refilled febuxostat (Uloric) 40 mg PO DAILY 30 tabs 6RF Coding Level of Care Code Est Pt Level 4 (76513) Diagnoses Stage 3a chronic kidney disease N18.31 Chronic kidney disease stage 3 subtype: stage 3a (GFR 45-59) Primary hypertension I10 Hypertension type: primary hypertension Gout M10.9 Hyperkalemia E87.5 Results Reviewed Nephrology Results: Sodium 142 mmol/L (135-145) 01/25/24 Potassium 5.2 mmol/L (3.3-5.1) H 01/25/24 Chloride 107 mmol/L (96-108) 01/25/24 Carbon Dioxide 28 mmol/L (22-29) 01/25/24 BUN 49 mg/dL (9-16) H 01/25/24 Creatinine 2.65 mg/dL (0.5-1.4) H 01/25/24 Calcium 9.1 mg/dL (8.4-10.2) 01/25/24
[2024-01-30 12:33] VITALS: BP 126/82; PULSE 95; O2SAT 98; BMI 31.1
== END 2024-01-30 12:48 | disposition home or self-care (01) ==
PROVIDERS: PCP Family Medicine; Visit Provider Internal Medicine Hypertension Specialist
DX: N18.31 Chronic kidney disease, stage 3a (principal); I10 Essential (primary) hypertension; M10.9 Gout, unspecified; E87.5 Hyperkalemia
CPT/HCPCS: 99214

== ENCOUNTER → 2024-01-30 12:29 | Outpatient (BNVA) | payer OTHER, SELFPAY | PROVIDERS: PCP Family Medicine; Visit Provider Internal Medicine Hypertension Specialist | DX: I12.9 Hypertensive chronic kidney disease with stage 1 through stage 4 chronic kidney disease, or unspecified chronic kidney disease (principal); N18.31 Chronic kidney disease, stage 3a; M10.9 Gout, unspecified; E87.5 Hyperkalemia | CPT/HCPCS: 99212 ==

== ENCOUNTER 2024-02-06 11:19 | Outpatient (AMB) | payer OTHER, SELFPAY ==
--- NOTE | 2024-02-06 11:22 | MHC.OFFVIS ---
Intake Vital Signs 02/06/24 11:47 Height 5 ft 6 in Weight 190 lb 7.67 oz BMI 30.7 BP 135/70 Blood Pressure Location Lt brachial Position Sitting Pulse 75 Intake Visit Reasons: 4 Weeks Follow up Intake Note: Patient presents to in office visit today in follow up of abdominal discomfort and excessive gas. CC: Patient reports he continues to have gas abdominal discomfort and gas. He states that he only takes the Simethicone when he remembers. Denies other GI symptoms. Lamination Spinner Required: No Accompanied by: Son Allergies lisinopril [LISINOPRIL] Allergy (Severe, Verified 02/06/24 11:53) ACUTE KIDNEY INJURY oxycodone [Percocet] Allergy (Intermediate, Verified 02/06/24 11:53) agitation codeine [CODEINE] Allergy (Unknown, Verified 02/06/24 11:53) AGITATION morphine [MORPHINE] Allergy (Unknown, Verified 02/06/24 11:53) AGITATION, confusion From PERCOCET Allergy (Unknown, Uncoded 01/26/24 14:34) AGITATION HPI 4 Weeks Follow up HPI Details Assessment & Plan (1) Gas bloat syndrome: Code(s): K92.89 - Other specified diseases of the digestive system (2) Tubular adenoma of colon: Comment: 2011 AND 2018-LOGAN due for repeat colonoscopy in 2023 Code(s): D12.6 - Benign neoplasm of colon, unspecified (3) Atrial fibrillation: Code(s): I48.91 - Unspecified atrial fibrillation Qualifiers: Atrial fibrillation type: permanent Qualified Code(s): I48.21 - Permanent atrial fibrillation (4) Personal history of nicotine dependence: Code(s): Z87.891 - Personal history of nicotine dependence (5) Chronic kidney disease, stage 3 unspecified: Code(s): N18.30 - Chronic kidney disease, stage 3 unspecified Qualifiers: Chronic kidney disease stage 3 subtype: stage 3a (GFR 45-59) Qualified Code(s): N18.31 - Chronic kidney disease, stage 3a (6) Current use of anticoagulant therapy: Code(s): Z79.01 - 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 He has had trouble with gas for about 2 years, juni in the afternoon. The pt says he has mostly normal BM's but tends towards the CIC side. No Diarrhea. He can not specifically ID any mediation changes around this time, but admits he had a lot of new health problems around this time, juni with his heart. He also noted more CIC when he was tx'ed for this. He has been on the fenofibrate for many many years before this. He has had a lot of diet changes between the coumadin therapy and his gout, NIDDM, etc. He will be seeing a photo mask processor soon. NO N/V or dyspepsia. He tends to eat just twice a day an egg and some coffee in the morning, maybe another coffee at noon, and his larger meal in the afternoon. He does not have the gas and bloating every day only on some days which leads me to believe it might be related to what he is eating. This also seems to be a problem if he knows he has to sit for long period of time, for example on an airplane, so it is possible this is related to mild anxiety. What seems to bother him the most is the noise that his stomach makes rather than passing large volumes of flatus or belching. Still he denies any outright abdominal pain. He does not drink much soda or carbonated beverages. He does use splint a in his coffee about twice a day. At this point I think I am going to give him a copy of the FODMAP diet and ask him to keep a diary of the foods he eats and whether not he has gas for couple of weeks to see if we can dry no connections. Will also prescribe him some simethicone for gas relief and I will consider if dicyclomine as needed going forward. FODMAP in Indonesian and Micronesian so son can help him. RX simethicone trial. Would consider RAST but since he does not have diarrhea this may be a stretch. Could be EPI, could consider creon or stool testing. I want him to keep a daily diary of foods eaten and gas sx. ROV 4 weeks. Medications: New simethicone aft er meals 180 mg PO QID 30 days 120 caps 3RF TODAY'S VISIT Micronesian # son translates per pt request. He says that the simethicone helped partially but not fully. He does admit that his bowels have slowed down recently compared to his past, he used to have diarrhea or soft stools, sometimes he will skip a day before he has a bowel movement. We discussed whether constipation could be causing the bloating but he is fearful of taking a laxative forgetting diarrhea. Also, he is going to be starting back on Uloric for gout which sometimes can have diarrhea as a side effect. Given this information I think will try putting him on a fiber supplement. Will also add a trial of Creon. He is having hyperkalemia lately and will be seeing a auto mechanic apprentice to try to address this. I also printed him some nutritional guide about a low purine diet and high potassium foods to avoid. He is due for repeat colonoscopy this year. Dr. Cain is his lace and textiles restorer. He had a bad experience with his last colonoscopy because he woke up and felt the pain and something inside me and this frightened him. I tell him we can forward this to anesthesia and make sure this does not happen to him this time. Otherwise he is agreeable. He sees Dr. Cain for afib and is on a blood thinner, he denies respiratory problems. No ID problems. He has a hx of TA's and past scopes were with Dr. Logan. Return office visit in 4 weeks to evaluate his response to Creon and fiber. [facility] Medical History Annual physical exam History of TIA (transient ischemic attack) Gout Personal history of nicotine dependence Chronic kidney disease, stage 3 unspecified Benign prostatic hyperplasia with lower urinary tract symptoms HTN (hypertension) CAD (coronary artery disease) Sinus bradycardia Paroxysmal atrial fibrillation Surgical History Stented coronary artery Hx of colonoscopy Hx of cardiac cath Hx of cystoscopy History of esophagogastroduodenoscopy (EGD) Hx of cataract extraction Family History Mother CAD (coronary artery disease) Diabetes HTN (hypertension) Father CAD (coronary artery disease) Diabetes HTN (hypertension) Social History Housing: Apartment Alcohol intake: former Patient Tobacco Use Status: Former Tobacco user Quit Date: 2015 Years Smoked: 40 +/- e-Cigarette/Vaping Use: Never Used service: No Current occupational status: retired and disabled Cognitive needs: No Hearing needs: No Vision needs: Yes Review of Systems Const Denies fatigue, Denies fever(s), Denies night sweats, Denies poor appetite and Denies weight loss Eyes Details: glasses Reports requires corrective lenses ENT Reports Normal hearing present, Denies dental pain, Denies dysphagia, Denies hearing loss, Denies mouth pain, Denies odynophagia, Denies throat swelling, Denies tongue swelling and Reports other (Dentition adequate) Card Reports no additional complaints Resp Reports no additional complaints GI Details: Denies abdominal pain, Denies melena, Reports bloating, Denies hematochezia, Reports constipation, Denies GI cramping, Denies dysphagia, Denies excessive flatus, Denies early satiety, Denies heartburn, Reports diarrhea, Denies nausea, Denies odynophagia, Denies vomiting and Denies hematemesis Skin/Breast Denies pruritus, Denies lesions, Denies rash and Denies jaundice Neuro Reports Normal hearing present and Denies Abnormal speech present Endo Denies fatigue Aller/Immun Denies throat swelling and Denies tongue swelling Physical Exam Vital Signs: Last Vital Signs Pulse 75 02/06/24 11:47 BP 135/70 02/06/24 11:47 BMI result Body Mass Index 30.7 Const General: cooperative, no acute distress, well developed and well groomed Nutritional Appearance: well nourished and obese Orientation/consciousness: oriented to person, oriented to place and oriented to time Limitations: language barrier HEENT Head: Yes normocephalic and Yes atraumatic Eyes General: appearance normal, both eyes and all related structures Pupils: Equal, round and reactive pupils present Neck Neck: Yes normal visual inspection and Yes no lymphadenopathy Thyroid: Thyroid normal Resp Effort & Inspection: normal respiratory effort and able to speak in complete sentences Auscultation: clear to auscultation bilaterally Cardio Rate: regular rate Rhythm: regular rhythm Heart sounds: Normal, physiologic split S2 sound present Peripheral pulses: radial pulses present and posterior tibial pulses present GI Inspection: No distended, No Abdominal panniculus present and Yes obesity Palpation (GI): Soft to palpation, nontender, no guarding, not rigid and No hepatosplenomegaly present Percussion: Yes normal to percussion Auscultation: normal bowel sounds Rectal Exam - Male: Yes deferred Skin General skin exam: no rashes or lesions noted, turgor normal, skin not dry, no jaundice, No spider nevi and no striae Rashes: no rashes Nails: normal Neuro General: oriented to person, oriented to place and oriented to time Cranial nerves: Yes Equal, round and reactive pupils present and Yes Normal hearing present Speech: No Abnormal speech present Extrem General: Yes normal to inspection, No clubbing, No cyanosis and No edema Psych Appearance: grossly normal and well kempt Mental Status: mental status grossly normal Speech and movement: Normal speech and movement present Affect: normal affect Attitude: cooperative Thought process: Normal thought process present and not confabulating Thought content: Normal thought content present Insight: Limited insight present (Psych) Judgement: Limited judgement present (Psych) Assessment & Plan Assessment & Plan (1) Gas bloat syndrome: Code(s): K92.89 - Other specified diseases of the digestive system (2) Tubular adenoma of colon: Comment: 2011 AND 2018-[facility] due for repeat colonoscopy in 2023 Code(s): D12.6 - Benign neoplasm of colon, unspecified (3) Pre-op examination: Code(s): Z01.818 - Encounter for other preprocedural examination (4) Constipation: Code(s): K59.00 - Constipation, unspecified (5) IBS (irritable bowel syndrome): Code(s): K58.9 - Irritable bowel syndrome without diarrhea Plan Micronesian # son translates per pt request. He says that the simethicone helped partially but not fully. He does admit that his bowels have slowed down recently compared to his past, he used to have diarrhea or soft stools, sometimes he will skip a day before he has a bowel movement. We discussed whether constipation could be causing the bloating but he is fearful of taking a laxative forgetting diarrhea. Also, he is going to be starting back on Uloric for gout which sometimes can have diarrhea as a side effect. Given this information I think will try putting him on a fiber supplement. Will also add a trial of Creon. He is having hyperkalemia lately and will be seeing a auto mechanic apprentice to try to address this. I also printed him some nutritional guide about a low purine diet and high potassium foods to avoid. He is due for repeat colonoscopy this year. Dr. Cain is his lace and textiles restorer. He had a bad experience with his last colonoscopy because he woke up and felt the pain and something inside me and this frightened him. I tell him we can forward this to anesthesia and make sure this does not happen to him this time. Otherwise he is agreeable. He sees Dr. Cain for afib and is on a blood thinner, he denies respiratory problems. No ID problems. He has a hx of TA's and past scopes were with Dr. Logan. Return office visit in 4 weeks to evaluate his response to Creon and fiber. Orders: Orders Comprehensive Met. Panel Today D12.6 - Benign neoplasm of colon, unspecified, Z01.818 - Encounter for other preprocedural examination Complete Blood Count Auto Diff Today D12.6 - Benign neoplasm of colon, unspecified, Z01.818 - Encounter for other preprocedural examination Colonoscopy - GI Use Only Today D12.6 - Benign neoplasm of colon, unspecified, Z01.818 - Encounter for other preprocedural examination Medications: New peg 3350-electrolytes 236-22.74-6.74 -5.86 gram (Golytely) until fecal effluent is clear; do not exceed a total volume of 2,000 mL 240 mL PO Q10M 1 day 4,000 mL 0RF Z12.11 - Encounter for screening for malignant neoplasm of colon [id number] 36,000-114,000- 180,000 unit (Creon) administer with meals and/or snacks 2 caps PO BID 60 caps 6RF K58.9 - Irritable bowel syndrome without diarrhea, K92.89 - Other specified diseases of the digestive system bisacodyl (Dulcolax (bisacodyl)) 10 mg (2 x 5 mg) PO BEDTIME 2 days 4 tabs 0RF psyllium husk (Daily Fiber) 0.4 grams PO BID 60 caps 6RF K59.00 - Constipation, unspecified Refilled simethicone after meals 180 mg PO QID 30 days 120 caps 6RF Coding Level of Care Code Est Pt Level 4 (69764) Diagnoses Gas bloat syndrome K92.89 Tubular adenoma of colon D12.6 Pre-op examination Z01.818 Constipation K59.00 IBS (irritable bowel syndrome) K58.9
[2024-02-06 11:47] VITALS: BP 135/70; PULSE 75; BMI 30.7
== END 2024-02-06 12:25 | disposition home or self-care (01) ==
PROVIDERS: PCP Physician Assistant; Visit Provider Nurse Practitioner
DX: K92.89 Other specified diseases of the digestive system (principal); D12.6 Benign neoplasm of colon, unspecified; Z01.818 Encounter for other preprocedural examination; K59.00 Constipation, unspecified; K58.9 Irritable bowel syndrome, unspecified
CPT/HCPCS: 99214

== ENCOUNTER → 2024-02-06 11:19 | Outpatient (BNVA) | payer OTHER, SELFPAY | PROVIDERS: PCP Physician Assistant; Visit Provider Nurse Practitioner | DX: K92.89 Other specified diseases of the digestive system (principal); D12.6 Benign neoplasm of colon, unspecified; K59.00 Constipation, unspecified; K58.9 Irritable bowel syndrome, unspecified; Z01.818 Encounter for other preprocedural examination | CPT/HCPCS: 99212 ==

== ENCOUNTER 2024-02-19 11:01 | Outpatient (AMB) | payer OTHER, SELFPAY ==
[2024-02-19 11:14] LABS: Prothrombin Time Whole Bld POC 34.8 sec (11.1-13.5); ~PT, ~INR - Anti Coag Clinic 2.9 (0.9-1.1)
--- NOTE | 2024-02-19 11:19 | MHC.OFFVISCO ---
Intake Intake Visit Reasons: Anticoagulation Allergies lisinopril [LISINOPRIL] Allergy (Severe, Verified 02/06/24 11:53) ACUTE KIDNEY INJURY oxycodone [Percocet] Allergy (Intermediate, Verified 02/06/24 11:53) agitation codeine [CODEINE] Allergy (Unknown, Verified 02/06/24 11:53) AGITATION morphine [MORPHINE] Allergy (Unknown, Verified 02/06/24 11:53) AGITATION, confusion From PERCOCET Allergy (Unknown, Uncoded 01/26/24 14:34) AGITATION Medication List - Last Reconciled 02/19/24 by Gosia Cano, BINA atorvastatin 80 mg PO QAM bisacodyl (Dulcolax (bisacodyl)) 10 mg (2 x 5 mg) PO BEDTIME 2 days cetirizine 5 mg PO DAILY PRN cholecalciferol (vitamin D3) 25 mcg PO DAILY compression socks, large As directed digoxin 125 mcg PO QAM febuxostat (Uloric) 40 mg PO DAILY fenofibrate 160 mg PO DAILY fluticasone propionate 50 mcg/actuation 1 spray intranasal DAILY 30 days gabapentin 100 mg PO BEDTIME [id number] 36,000-114,000- 180,000 unit (Creon) 2 caps PO BID meclizine 25 mg PO TID PRN 10 days metoprolol tartrate 100 mg PO BID peg 3350-electrolytes 236-22.74-6.74 -5.86 gram (Golytely) 240 mL PO Q10M 1 day psyllium husk (Daily Fiber) 0.4 grams PO BID simethicone 180 mg PO QID 30 days warfarin 5 mg See Protocol PO DAILY Nursing Note INR: 2.9 in therapeutic range of 2-3 Medications and supplements reviewed: no changes No changes in health, diet, medications, or supplements, Denies any signs and symptoms of bleeding or bruising or clotting. Bleeding, bruising, clotting discussed Nutritional guidance given to continue to balance reds and greens Dose: 7.5mg X 1 day and 5mg X 6 days F/U INR: 4 weeks, 03/18/24 Patient verbalizes understanding of instructions given Anti-Coag Initial Assessment Social Hx Patient Tobacco Use Status: Former Tobacco user Quit Date: 2015 alcohol intake: former Alcohol intake frequency: does not drink Coding Level of Care Code Est Patient Level 1 Diagnoses Current use of anticoagulant therapy Z79.01 Assessment & Plan Assessment & Plan (1) Current use of anticoagulant therapy: Code(s): Z79.01 - terminal gauger (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
== END 2024-02-19 11:22 | disposition home or self-care (01) ==
LOC: HO.ACS 11:01
PROVIDERS: PCP Physician Assistant; Visit Provider Internal Medicine
DX: Z79.01 Long term (current) use of anticoagulants (principal)

== ENCOUNTER → 2024-02-19 11:01 | Outpatient (BNVA) | payer OTHER, SELFPAY | PROVIDERS: PCP Physician Assistant; Visit Provider Internal Medicine | DX: I48.0 Paroxysmal atrial fibrillation (principal); Z51.81 Encounter for therapeutic drug level monitoring; Z79.01 Long term (current) use of anticoagulants | CPT/HCPCS: 85610; 99211 ==

== ENCOUNTER 2024-03-18 10:57 | Outpatient (AMB) | payer OTHER, SELFPAY ==
[2024-03-18 11:10] LABS: Prothrombin Time Whole Bld POC 30.3 sec (11.1-13.5); ~PT, ~INR - Anti Coag Clinic 2.5 (0.9-1.1)
--- NOTE | 2024-03-18 11:15 | MHC.OFFVISCO ---
Intake Intake Visit Reasons: Anticoagulation Allergies lisinopril [LISINOPRIL] Allergy (Severe, Verified 03/18/24 11:02) ACUTE KIDNEY INJURY oxycodone [Percocet] Allergy (Intermediate, Verified 03/18/24 11:02) agitation codeine [CODEINE] Allergy (Unknown, Verified 03/18/24 11:02) AGITATION morphine [MORPHINE] Allergy (Unknown, Verified 03/18/24 11:02) AGITATION, confusion From PERCOCET Allergy (Unknown, Uncoded 03/18/24 11:02) AGITATION Medication List - Last Reconciled 03/18/24 by Anne Gould RN atorvastatin 80 mg PO QAM bisacodyl (Dulcolax (bisacodyl)) 10 mg (2 x 5 mg) PO BEDTIME 2 days cetirizine 5 mg PO DAILY PRN cholecalciferol (vitamin D3) 25 mcg PO DAILY compression socks, large As directed digoxin 125 mcg PO QAM febuxostat (Uloric) 40 mg PO DAILY fenofibrate 160 mg PO DAILY fluticasone propionate 50 mcg/actuation 1 spray intranasal DAILY 30 days gabapentin 100 mg PO BEDTIME [id number] 36,000-114,000- 180,000 unit (Creon) 2 caps PO BID meclizine 25 mg PO TID PRN 10 days metoprolol tartrate 100 mg PO BID peg 3350-electrolytes 236-22.74-6.74 -5.86 gram (Golytely) 240 mL PO Q10M 1 day psyllium husk (Daily Fiber) 0.4 grams PO BID simethicone 180 mg PO QID 30 days warfarin 5 mg See Protocol PO DAILY Nursing Note INR: 2.5 in therapeutic range Medications and supplements reviewed- NO changes per son and pt No changes in health, diet, medications, or supplements, Denies any signs and symptoms of bleeding or bruising or clotting. Bleeding, bruising, clotting discussed Nutritional guidance given - review food list weekly, eat a mix of fruits and vegetables Dose: keep same dose 7.5mg x 1 day/ 5mg x 6 days F/U INR: 4 weeks Patient verbalizes understanding of instructions given Anti-Coag Initial Assessment Social Hx Patient Tobacco Use Status: Former Tobacco user Quit Date: 2015 alcohol intake: former Alcohol intake frequency: does not drink Coding Level of Care Code Est Patient Level 1 Diagnoses Current use of anticoagulant therapy Z79.01 Assessment & Plan Assessment & Plan (1) Current use of anticoagulant therapy: Code(s): Z79.01 - terminal manager (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
== END 2024-03-18 11:17 | disposition home or self-care (01) ==
LOC: HO.ACS 10:57
PROVIDERS: PCP Physician Assistant; Visit Provider Internal Medicine
DX: Z79.01 Long term (current) use of anticoagulants (principal)

== ENCOUNTER → 2024-03-18 10:57 | Outpatient (BNVA) | payer OTHER, SELFPAY | PROVIDERS: PCP Physician Assistant; Visit Provider Internal Medicine | DX: I48.0 Paroxysmal atrial fibrillation (principal); Z51.81 Encounter for therapeutic drug level monitoring; Z79.01 Long term (current) use of anticoagulants | CPT/HCPCS: 85610; 99211 ==

== ENCOUNTER 2024-03-21 11:03 | Outpatient (AMB) | payer OTHER, SELFPAY ==
[2024-03-21 11:14] VITALS: BP 160/100; PULSE 74; O2SAT 97; BMI 31.0
--- NOTE | 2024-03-21 11:14 | MHC.PC.OV ---
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 Required: No Accompanied by: Son Allergies lisinopril [LISINOPRIL] Allergy (Severe, Verified 03/21/24 11:27) ACUTE KIDNEY INJURY oxycodone [Percocet] Allergy (Intermediate, Verified 03/21/24 11:27) agitation codeine [CODEINE] Allergy (Unknown, Verified 03/21/24 11:27) AGITATION morphine [MORPHINE] Allergy (Unknown, Verified 03/21/24 11:27) AGITATION, confusion From PERCOCET Allergy (Unknown, Uncoded 03/21/24 11:24) AGITATION Medication List - Last Reconciled 03/21/24 by Preet An PA-C atorvastatin 80 mg PO QAM bisacodyl (Dulcolax (bisacodyl)) 10 mg (2 x 5 mg) PO BEDTIME 2 days cetirizine 5 mg PO DAILY PRN cholecalciferol (vitamin D3) 25 mcg PO DAILY compression socks, large As directed digoxin 125 mcg PO QAM febuxostat (Uloric) 40 mg PO DAILY fenofibrate 160 mg PO DAILY fluticasone propionate 50 mcg/actuation 1 spray intranasal DAILY 30 days gabapentin 200 mg (2 x 100 mg) PO BEDTIME 30 days kspzli-fjgufoug-fwyhfzq 36,000-114,000- 180,000 unit (Creon) 2 caps PO BID meclizine 25 mg PO TID PRN 10 days metoprolol tartrate 100 mg PO BID peg 3350-electrolytes 236-22.74-6.74 -5.86 gram (Golytely) 240 mL PO Q10M 1 day psyllium husk (Daily Fiber) 0.4 grams PO BID simethicone 180 mg PO QID 30 days warfarin 5 mg See Protocol PO DAILY Tobacco use date assessed: 11/21/23 Dental Screening Dental Screen Date: 11/21/23 HPI Follow-up hypertension HPI Details Patient is a 73 year male here today for follow-up visit Patient has a past medical history significant for AFib (followed by Cardiology), gout, thoracic aortic aneurysm (followed by vascular) hypertension, CKD stage 3(followed by Nephrology), coronary artery disease. Concern--> has noted a white film over his tongue and some decreased taste. This has been evident for quite a long time. Will try oral mouth solution for possible thrush. .. AFib: Continues on warfarin for anticoagulation. Also followed by [facility]. .. CKD stage 3: Has interstitial nephritis confirmed by biopsy. Continues to follow Nephrology. Stable creatinine seems to be from 2.1-2.4. .. Gout: Does take uric acid lowering medication. Does from time to time have pain in his ankles and feet that are short lived. Laboratory Tests 08/05/22 09/12/23 10/30/23 09:18 10:04 14:57 WBC 12.7 H RBC 5.73 Creatinine 2.07 H 2.34 H Uric Acid Microalb/Creat Rat io 1655.8 10/30/23 01/25/24 15:00 12:38 WBC RBC Creatinine 2.65 H Uric Acid 9.5 H Microalb/Creat Rat io 2621.5 H PFS Medical History Annual physical exam History of TIA (transient ischemic attack) Gout Personal history of nicotine dependence Chronic kidney disease, stage 3 unspecified Benign prostatic hyperplasia with lower urinary tract symptoms HTN (hypertension) CAD (coronary artery disease) Sinus bradycardia Paroxysmal atrial fibrillation Surgical History Stented coronary artery Hx of colonoscopy Hx of cardiac cath Hx of cystoscopy History of esophagogastroduodenoscopy (EGD) Hx of cataract extraction Family History Mother CAD (coronary artery disease) Diabetes HTN (hypertension) Father CAD (coronary artery disease) Diabetes HTN (hypertension) Social History Housing: Apartment Alcohol intake: former Patient Tobacco Use Status: Former Tobacco user Quit Date: 2015 Years Smoked: 40 +/- e-Cigarette/Vaping Use: Never Used service: No Current occupational status: retired and disabled Cognitive needs: No Hearing needs: No Vision needs: Yes Questionnaire Thrive Questionnaire Date Thrive assessed: 11/21/23 FAUSTINA-7 AMB Questionnaire FAUSTINA-7 Date FAUSTINA - 7 assessed: 11/21/23 Source: Developed by Drs. Jasson Ramos, Alanna Allen, Wai Tanner and colleagues, with an educational marcell from [employer]. Review of Systems Const Denies headache(s) Eyes Denies loss of vision ENT Denies vertigo, Denies dizziness, Denies headache(s) and Denies sore throat Card Denies chest pain, Denies leg edema and Denies lightheadedness Resp Denies cough, Denies hemoptysis and Denies wheezing GI Denies abdominal pain, Denies melena, Denies constipation, Denies diarrhea and Denies vomiting Denies dysuria, Denies urinary frequency and Denies urinary urgency Musc Denies arthralgias, Denies joint swelling, Denies numbness and Denies tingling Neuro Denies Abnormal speech present, Denies behavioral changes, Denies vertigo, Denies dizziness, Denies headache(s), Denies loss of vision, Denies memory loss, Denies numbness and Denies tingling Psych Denies anxiety, Denies behavioral changes, Denies depression, Denies memory loss and Denies panic attacks Adonis/Lymph Denies easy bleeding and Denies easy bruising Aller/Immun Denies wheezing Physical exam (Primary Care) Vital Signs: Last Vital Signs Pulse 74 03/21/24 11:14 BP 160/100 H 03/21/24 11:14 Pulse Ox 97 03/21/24 11:14 Oxygen Delivery Method Room Air 03/21/24 11:14 BMI result Body Mass Index 31.0 Tobacco/Smoking Status: Tobacco use Status Tobacco use date assessed 11/21/23 03/21/24 11:16 Patient Tobacco Use Status Former Tobacco user 03/21/24 11:16 e-Cigarette/Vaping Use Never Used 03/21/24 11:16 Thrive Assessment: Date of Thrive Assessment Date Thrive assessed 11/21/23 03/21/24 11:16 Const General: healthy appearing, no acute distress, alert and awake Nutritional Appearance: well nourished Orientation/consciousness: oriented to person, oriented to place and oriented to time HENMT Ears: TM's normal bilaterally General nose exam: Normal nasal mucous membranes and turbinates present Eyes Conjunctivae: conjunctivae normal Sclerae: sclerae normal Pupils: Equal, round and reactive pupils present Neck Neck: Yes no lymphadenopathy and Yes no JVD Thyroid: Thyroid normal Carotids: no bruits Resp Effort & Inspection: normal respiratory effort and not tachypneic Auscultation: no crackles, no rales, no rhonchi and no wheezes Cardio Rate: regular rate Rhythm: regular rhythm Heart sounds: no murmurs and normal S1 and S2 GI Palpation (GI): Soft to palpation, nontender, no hepatomegaly and no splenomegaly Auscultation: normal bowel sounds Skin General skin exam: no rashes or lesions noted and dry skin Neuro General: oriented to person, oriented to place and oriented to time Cranial nerves: Yes Equal, round and reactive pupils present Speech: No Abnormal speech present Gait exam (Neuro): Normal gait present Motor exam (neuro): no tremor noted Extrem Right upper extremity: full ROM Left upper extremity: full ROM Right lower extremity: full ROM; no edema Left lower extremity: full ROM; no edema Psych Mental Status: mental status grossly normal Speech and movement: Normal speech and movement present Affect: normal affect Attitude: cooperative Thought process: Normal thought process present Assessment and Plan Assessment & Plan (1) Atrial fibrillation: Code(s): I48.91 - Unspecified atrial fibrillation Qualifiers: Atrial fibrillation type: permanent Qualified Code(s): I48.21 - Permanent atrial fibrillation Plan: Continues on warfarin in INRs have been fairly stable. No overt signs of bleeding. He is under rhythm and rate control with digoxin and metoprolol. No recent episodes chest discomfort, dizziness or heart palpitations. (2) Chronic kidney disease, stage 3 unspecified: Code(s): N18.30 - Chronic kidney disease, stage 3 unspecified Qualifiers: Chronic kidney disease stage 3 subtype: stage 3a (GFR 45-59) Qualified Code(s): N18.31 - Chronic kidney disease, stage 3a Plan: Followed by Nephrology. Did have biopsy years ago showing interstitial nephritis., Creatinine seems to be stable around 2.1-2.5. Will avoid nephrotoxin medication. (3) Aneurysm of descending thoracic aorta: Code(s): I71.2 - Thoracic aortic aneurysm, without rupture Qualifiers: Presence of rupture: without rupture Qualified Code(s): I71.23 - Aneurysm of the descending thoracic aorta, without rupture Plan: He is followed by vascular surgeon is under surveillance for thoracic aneurysm. Most recent thoracic aneurysm showing 4.1 cm. (4) CAD (coronary artery disease): Code(s): I25.10 - Atherosclerotic heart disease of [place] coronary artery without angina pectoris Qualifiers: Associated angina: without angina Coronary Disease-Associated Artery/Lesion type: [place] artery [place] vs. transplanted heart: [place] heart Qualified Code(s): I25.10 - Atherosclerotic heart disease of [place] coronary artery without angina pectoris Plan: Continues to follow a auction clerk. Continues on high-dose statin therapy. Goal LDL to be below 70 (5) HTN (hypertension): Code(s): I10 - Essential (primary) hypertension Qualifiers: Hypertension type: primary hypertension Qualified Code(s): I10 - Essential (primary) hypertension Plan: Blood pressure stable today in office. Continues to follow quality control representative as well. Goal blood pressures to remain below 140/90. (6) Thrush: Code(s): B37.0 - Candidal stomatitis Medications: New nystatin administer 1/2 of dose in each side of the mouth 500,000 units (5 mL) PO BID 14 days PRN 60 mL 0RF mouth irritation B37.0 - Candidal stomatitis On Hold gabapentin Hold Comment: Doctor's Order 200 mg (2 x 100 mg) PO BEDTIME 30 days 60 caps 3RF Patient Instructions: Goals: Blood pressure remain below 140/90 Barriers: Adherence to healthy eating habits and physical activity Coding Level of Care Code Est Pt Level 4 (51447) Diagnoses Permanent atrial fibrillation I48.21 Atrial fibrillation type: permanent Stage 3a chronic kidney disease N18.31 Chronic kidney disease stage 3 subtype: stage 3a (GFR 45-59) Aneurysm of descending thoracic aorta without rupture I71.23 Presence of rupture: without rupture Coronary artery disease involving [place] coronary artery of [place] heart without angina pectoris I25.10 Associated angina: without angina Coronary Disease-Associated Artery/Lesion type: [place] artery [place] vs. transplanted heart: [place] heart Primary hypertension I10 Hypertension type: primary hypertension Thrush B37.0
== END 2024-03-21 12:01 | disposition home or self-care (01) ==
PROVIDERS: PCP Physician Assistant; Visit Provider Physician Assistant
DX: I48.21 Permanent atrial fibrillation (principal); I12.9 Hypertensive chronic kidney disease with stage 1 through stage 4 chronic kidney disease, or unspecified chronic kidney disease; N18.31 Chronic kidney disease, stage 3a; I71.23 Aneurysm of the descending thoracic aorta, without rupture; I25.10 Atherosclerotic heart disease of native coronary artery without angina pectoris; B37.0 Candidal stomatitis
CPT/HCPCS: 99214

== ENCOUNTER 2024-04-16 14:04 | Outpatient (AMB) | payer OTHER, SELFPAY ==
--- NOTE | 2024-04-16 14:07 | A.OFFVIS_ITS ---
Vital Signs 04/16/24 14:10 Height 5 ft 6 in Weight 191 lb BMI 30.8 BP 133/99 H Blood Pressure Location Lt brachial Position Sitting Pulse 108 H Intake Visit Reasons: 4 week follow up bloating, CIC Intake Note: Ziggy returns in 4 weeks follow up of CIC and abd bloating. CC: Patient states that he has noticed a little bit of improvement on his symptoms. 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: Yes Accompanied by: Son Allergies lisinopril [LISINOPRIL] Allergy (Severe, Verified 04/16/24 14:14) ACUTE KIDNEY INJURY oxycodone [Percocet] Allergy (Intermediate, Verified 04/16/24 14:14) agitation codeine [CODEINE] Allergy (Unknown, Verified 04/16/24 14:14) AGITATION morphine [MORPHINE] Allergy (Unknown, Verified 04/16/24 14:14) AGITATION, confusion From PERCOCET Allergy (Unknown, Uncoded 03/21/24 11:24) AGITATION HPI HPI 4 week follow up bloating, CIC: Details: Assessment & Plan (1) Gas bloat syndrome: Code(s): K92.89 - Other specified diseases of the digestive system (2) Tubular adenoma of colon: Comment: 2011 AND 2018-LOGAN due for repeat colonoscopy in 2023 Code(s): D12.6 - Benign neoplasm of colon, unspecified (3) Pre-op examination: Code(s): Z01.818 - Encounter for other preprocedural examination (4) Constipation: Code(s): K59.00 - Constipation, unspecified (5) IBS (irritable bowel syndrome): Code(s): K58.9 - Irritable bowel syndrome without diarrhea Plan [place] # son translates per pt request. He says that the simethicone helped partially but not fully. He does admit that his bowels have slowed down recently compared to his past, he used to have diarrhea or soft stools, sometimes he will skip a day before he has a bowel movement. We discussed whether constipation could be causing the bloating but he is fearful of taking a laxative forgetting diarrhea. Also, he is going to be starting back on Uloric for gout which sometimes can have diarrhea as a side effect. Given this information I think will try putting him on a fiber supplement. Will also add a trial of Creon. He is having hyperkalemia lately and will be seeing a compensation/benefits specialist to try to address this. I also printed him some nutritional guide about a low purine diet and high potassium foods to avoid. He is due for repeat colonoscopy this year. Dr. Cain is his collateral analyst. He had a bad experience with his last colonoscopy because he woke up and felt the pain and something inside me and this frightened him. I tell him we can forward this to anesthesia and make sure this does not happen to him this time. Otherwise he is agreeable. He sees Dr. Cain for afib and is on a blood thinner, he denies respiratory problems. No ID problems. He has a hx of TA's and past scopes were with Dr. Logan. Return office visit in 4 weeks to evaluate his response to Creon and fiber. Orders: Orders Comprehensive Met. Panel Today D12.6 - Benign neoplasm of colon, unspecified, Z01.818 - Encounter for other preprocedural examination Complete Blood Count Auto Diff Today D12.6 - Benign neoplasm of colon, unspecified, Z01.818 - Encounter for other preprocedural examination Colonoscopy - GI Use Only Today D12.6 - Benign neoplasm of colon, unspecified, Z01.818 - Encounter for other preprocedural examination Medications: New peg 3350-electrolytes 236-22.74-6.74 -5.86 gram (Golytely) until fecal effluent is clear; do not exceed a total volume of 2,000 mL 240 mL PO Q10M 1 day 4,000 mL 0RF Z12.11 - Encounter for screening for malignant neoplasm of colon [id number] 36,000-114,000- 180,000 unit (Creon) administer with meals and/or snacks 2 caps PO BID 60 caps 6RF K58.9 - Irritable bowel syndrome without diarrhea, K92.89 - Other specified diseases of the digestive system bisacodyl (Dulcolax (bisacodyl)) 10 mg (2 x 5 mg) PO BEDTIME 2 days 4 tabs 0RF psyllium husk (Daily Fiber) 0.4 grams PO BID 60 caps 6RF K59.00 - Constipation, unspecified Refilled simethicone after meals 180 mg PO QID 30 days 120 caps 6RF LABS: Laboratory Tests 01/25/24 12:38 Estimated GFR 24 CBC and liver functions were not obtained COLONOSCOPY Scheduled for 07/18/2024 BIOPSY TODAY'S VISIT [place] # son translates per pt request He is on creon, fiber and simethicone. He remains satisfied with his GI regimen. He is aware of the upcoming colonoscopy and will keep his office visit afterwards as his next visit. He has a follow up with me 08/01/2024. [facility] Medical History Pre-op examination Annual physical exam History of TIA (transient ischemic attack) Gout Personal history of nicotine dependence Chronic kidney disease, stage 3 unspecified Benign prostatic hyperplasia with lower urinary tract symptoms HTN (hypertension) CAD (coronary artery disease) Sinus bradycardia Paroxysmal atrial fibrillation Surgical History Stented coronary artery Hx of colonoscopy Hx of cardiac cath Hx of cystoscopy History of esophagogastroduodenoscopy (EGD) Hx of cataract extraction Family History Mother CAD (coronary artery disease) Diabetes HTN (hypertension) Father CAD (coronary artery disease) Diabetes HTN (hypertension) Social History Housing: Apartment Alcohol intake: former Patient Tobacco Use Status: Former Tobacco user Quit Date: 2016 Years Smoked: 40 +/- e-Cigarette/Vaping Use: Never Used service: No Current occupational status: retired and disabled Cognitive needs: No Hearing needs: No Vision needs: Yes Review of Systems Const Denies fatigue, Denies fever(s), Denies night sweats, Denies poor appetite and Denies weight loss Eyes Details: glasses Reports requires corrective lenses ENT Reports Normal hearing present, Denies dental pain, Denies dysphagia, Denies hearing loss, Denies mouth pain, Denies odynophagia, Denies throat swelling, Denies tongue swelling and Reports other (Dentition adequate) GI Details: Denies abdominal pain, Denies melena, Denies bloating, Denies hematochezia, Denies constipation, Denies GI cramping, Denies dysphagia, Denies excessive flatus, Denies early satiety, Denies heartburn, Denies diarrhea, Denies nausea, Denies odynophagia, Denies vomiting and Denies hematemesis Skin/Breast Denies pruritus, Denies lesions, Denies rash and Denies jaundice Neuro Reports Normal hearing present and Denies Abnormal speech present Endo Denies fatigue Aller/Immun Denies throat swelling and Denies tongue swelling Physical Exam Vital Signs: Last Vital Signs Pulse 108 H 04/16/24 14:10 BP 133/99 H 04/16/24 14:10 BMI result Body Mass Index 30.8 Const General: cooperative, no acute distress, well developed and well groomed Nutritional Appearance: well nourished and obese Orientation/consciousness: oriented to person, oriented to place and oriented to time Limitations: language barrier HEENT Head: Yes normocephalic and Yes atraumatic Eyes General: appearance normal, both eyes and all related structures Pupils: Equal, round and reactive pupils present Neck Neck: Yes normal visual inspection and Yes no lymphadenopathy Thyroid: Thyroid normal Resp Effort & Inspection: normal respiratory effort and able to speak in complete sentences Auscultation: clear to auscultation bilaterally Cardio Rate: regular rate Rhythm: regular rhythm Heart sounds: Normal, physiologic split S2 sound present Peripheral pulses: radial pulses present and posterior tibial pulses present GI Inspection: No distended, No Abdominal panniculus present and Yes obesity Palpation (GI): Soft to palpation, nontender, no guarding, not rigid and No hepatosplenomegaly present Percussion: Yes normal to percussion Auscultation: normal bowel sounds Rectal Exam - Male: Yes deferred Skin General skin exam: no rashes or lesions noted, turgor normal, skin not dry, no jaundice, No spider nevi and no striae Rashes: no rashes Nails: normal Neuro General: oriented to person, oriented to place and oriented to time Cranial nerves: Yes Equal, round and reactive pupils present and Yes Normal hearing present Speech: No Abnormal speech present Extrem General: Yes normal to inspection, No clubbing, No cyanosis and No edema Psych Thought process: Normal thought process present and not confabulating Thought content: Normal thought content present Insight: Good insight present (Psych) Judgement: Good judgement present (Psych) Assessment & Plan Assessment & Plan (1) IBS (irritable bowel syndrome): Code(s): K58.9 - Irritable bowel syndrome without diarrhea Category: Medical (2) Constipation: Code(s): K59.00 - Constipation, unspecified Category: Medical (3) Gas bloat syndrome: Code(s): K92.89 - Other specified diseases of the digestive system Category: Medical (4) Tubular adenoma of colon: Comment: 2011 AND 2018-LOGAN due for repeat colonoscopy in 2023 Code(s): D12.6 - Benign neoplasm of colon, unspecified Category: Medical Plan [place] # son translates per pt request He is on creon, fiber and simethicone. He remains satisfied with his GI regimen. He is aware of the upcoming colonoscopy and will keep his office visit afterwards as his next visit. He has a follow up with me 08/01/2024. COLONOSCOPY Scheduled for 07/18/2024 BIOPSY Medications: Refilled bisacodyl (Dulcolax (bisacodyl)) 10 mg (2 x 5 mg) PO BEDTIME 4 tabs 0RF 2 days cvgmpy-zlctwdtd-npbjhya 36,000-114,000- 180,000 unit (Creon) administer with meals and/or snacks 2 caps PO BID 60 caps 6RF K58.9 - Irritable bowel syndrome without diarrhea, K92.89 - Other specified diseases of the digestive system simethicone after meals 180 mg PO QID 120 caps 6RF 30 days psyllium husk (Daily Fiber) 0.4 grams PO BID 60 caps 6RF K59.00 - Constipation, unspecified Coding Level of Care Code Est Pt Level 3 (19820) Diagnoses IBS (irritable bowel syndrome) K58.9 Constipation K59.00 Gas bloat syndrome K92.89 Tubular adenoma of colon D12.6
[2024-04-16 14:10] VITALS: BP 133/99; PULSE 108; BMI 30.8
== END 2024-04-16 14:37 | disposition home or self-care (01) ==
PROVIDERS: PCP Physician Assistant; Visit Provider Nurse Practitioner
DX: K58.9 Irritable bowel syndrome, unspecified (principal); K59.00 Constipation, unspecified; K92.89 Other specified diseases of the digestive system; D12.6 Benign neoplasm of colon, unspecified
CPT/HCPCS: 99213

== ENCOUNTER → 2024-04-16 14:04 | Outpatient (BNVA) | payer OTHER, SELFPAY | PROVIDERS: PCP Physician Assistant; Visit Provider Nurse Practitioner | DX: K59.04 Chronic idiopathic constipation (principal); R14.0 Abdominal distension (gaseous); K92.89 Other specified diseases of the digestive system; K58.9 Irritable bowel syndrome, unspecified; D12.6 Benign neoplasm of colon, unspecified | CPT/HCPCS: 99212 ==

== ENCOUNTER 2024-04-17 10:58 | Outpatient (AMB) | payer OTHER, SELFPAY ==
--- NOTE | 2024-04-17 11:07 | MHC.OFFVISCO ---
Intake Intake Visit Reasons: Anticoagulation Allergies lisinopril [LISINOPRIL] Allergy (Severe, Verified 04/17/24 11:02) ACUTE KIDNEY INJURY oxycodone [Percocet] Allergy (Intermediate, Verified 04/17/24 11:02) agitation codeine [CODEINE] Allergy (Unknown, Verified 04/17/24 11:02) AGITATION morphine [MORPHINE] Allergy (Unknown, Verified 04/17/24 11:02) AGITATION, confusion From PERCOCET Allergy (Unknown, Uncoded 04/17/24 11:02) AGITATION Medication List - Last Reconciled 04/17/24 by Lisa White RN atorvastatin 80 mg PO QAM bisacodyl (Dulcolax (bisacodyl)) 10 mg (2 x 5 mg) PO BEDTIME 2 days cetirizine 5 mg PO DAILY PRN cholecalciferol (vitamin D3) 25 mcg PO DAILY compression socks, large As directed digoxin 125 mcg PO QAM febuxostat (Uloric) 40 mg PO DAILY fluticasone propionate 50 mcg/actuation 1 spray intranasal DAILY 30 days gabapentin 200 mg (2 x 100 mg) PO BEDTIME 30 days grdwcc-kbrxadmf-hucffgd 36,000-114,000- 180,000 unit (Creon) 2 caps PO BID meclizine 25 mg PO TID PRN 10 days metoprolol tartrate 100 mg PO BID nystatin 500,000 units (5 mL) PO BID PRN 14 days peg 3350-electrolytes 236-22.74-6.74 -5.86 gram (Golytely) 240 mL PO Q10M 1 day psyllium husk (Daily Fiber) 0.4 grams PO BID simethicone 180 mg PO QID 30 days warfarin 5 mg See Protocol PO DAILY Nursing Note INR: 2.2-in therapeutic range of 2-3 Medications and supplements reviewed- finished course of nystatin prn- no interaction with warfarin per micromedex No changes in health, diet, medications, or supplements, Denies any signs and symptoms of bleeding or bruising or clotting. 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
[2024-04-17 11:08] LABS: Prothrombin Time Whole Bld POC 26.8 sec (11.1-13.5); ~PT, ~INR - Anti Coag Clinic 2.2 (0.9-1.1)
== END 2024-04-17 11:15 | disposition home or self-care (01) ==
LOC: HO.ACS 10:58
PROVIDERS: PCP Physician Assistant; Visit Provider Internal Medicine
DX: Z79.01 Long term (current) use of anticoagulants (principal)

== ENCOUNTER → 2024-04-17 10:58 | Outpatient (BNVA) | payer OTHER, SELFPAY | PROVIDERS: PCP Physician Assistant; Visit Provider Internal Medicine | DX: I48.0 Paroxysmal atrial fibrillation (principal); Z51.81 Encounter for therapeutic drug level monitoring; Z79.01 Long term (current) use of anticoagulants | CPT/HCPCS: 85610; 99211 ==

== ENCOUNTER 2024-05-07 10:58 | Outpatient (AMB) | payer OTHER, SELFPAY ==
[2024-05-07 11:05] VITALS: BP 140/78; PULSE 78; BMI 31.0
--- NOTE | 2024-05-07 11:05 | MHC.OFFVIS ---
Vital Signs 05/07/24 11:05 Height 5 ft 6 in Weight 191 lb 12.835 oz BMI 31.0 BP 140/78 H Blood Pressure Location Lt brachial Position Sitting Pulse 78 Pulse Source Pulse Oximeter Intake Visit Reasons: 1 year follow up Intake Note: PT is here for ov with EKG PT feels good Public Speaking Teacher Required: Yes Public Speaking Teacher Name: SON Accompanied by: Son Allergies lisinopril [LISINOPRIL] Allergy (Severe, Verified 04/17/24 11:02) ACUTE KIDNEY INJURY oxycodone [Percocet] Allergy (Intermediate, Verified 04/17/24 11:02) agitation codeine [CODEINE] Allergy (Unknown, Verified 04/17/24 11:02) AGITATION morphine [MORPHINE] Allergy (Unknown, Verified 04/17/24 11:02) AGITATION, confusion From PERCOCET Allergy (Unknown, Uncoded 04/17/24 11:02) AGITATION Medication List - Last Reviewed 05/07/24 by Robina Tran atorvastatin 80 mg PO QAM bisacodyl (Dulcolax (bisacodyl)) 10 mg (2 x 5 mg) PO BEDTIME 2 days cetirizine 5 mg PO DAILY PRN cholecalciferol (vitamin D3) 25 mcg PO DAILY compression socks, large As directed digoxin 125 mcg PO QAM febuxostat (Uloric) 40 mg PO DAILY fluticasone propionate 50 mcg/actuation 1 spray intranasal DAILY 30 days gabapentin 200 mg (2 x 100 mg) PO BEDTIME 30 days ddwqyq-hqxwoceb-fsywoij 36,000-114,000- 180,000 unit (Creon) 2 caps PO BID meclizine 25 mg PO TID PRN 10 days metoprolol tartrate 100 mg PO BID peg 3350-electrolytes 236-22.74-6.74 -5.86 gram (Golytely) 240 mL PO Q10M 1 day prednisone mg PO psyllium husk (Daily Fiber) 0.4 grams PO BID simethicone 180 mg PO QID 30 days warfarin 5 mg PO DAILY HPI Comments Details: Ziggy comes for follow-up. Overall from cardiac perspective as per the son he has been doing well. Patient denies any worsening shortness of breath, orthopnea, PND. Denies any prolonged palpitation irregular heartbeat. Mostly currently having GI issues. His INRs have been well controlled. He denies any bleeding issues or neurologic events. Denies any exertional chest pain. [facility] Medical History (Updated 05/07/24 @ 16:35 by Chan Cain MD) Sinus bradycardia Pre-op examination Annual physical exam History of TIA (transient ischemic attack) Gout Personal history of nicotine dependence Chronic kidney disease, stage 3 unspecified Benign prostatic hyperplasia with lower urinary tract symptoms HTN (hypertension) CAD (coronary artery disease) Paroxysmal atrial fibrillation Surgical History Stented coronary artery Hx of colonoscopy Hx of cardiac cath Hx of cystoscopy History of esophagogastroduodenoscopy (EGD) Hx of cataract extraction Family History Mother CAD (coronary artery disease) Diabetes HTN (hypertension) Father CAD (coronary artery disease) Diabetes HTN (hypertension) Social History Housing: Apartment Alcohol intake: former Patient Tobacco Use Status: Former Tobacco user Years Smoked: 40 +/- e-Cigarette/Vaping Use: Never Used service: No Current occupational status: retired and disabled Cognitive needs: No Hearing needs: No Vision needs: Yes Review of Systems Const Denies weakness ENT Denies dizziness Card Denies chest pain, Denies chest pain with activity, Denies syncope, Denies rapid heart rate, Denies pedal edema, Denies edema, Denies leg edema, Denies lightheadedness, Denies palpitations, Denies dyspnea, Denies dyspnea on exertion and Denies orthopnea Resp Denies cough, Denies dyspnea and Denies dyspnea on exertion GI Denies hematochezia and Denies change in stool character Musc Denies abnormal gait, Denies muscle cramps, Denies muscle weakness, Denies numbness, Denies radiating pain into limb and Denies tingling Neuro Denies abnormal gait, Denies dizziness, Denies syncope, Denies numbness, Denies tingling and Denies weakness Endo Denies palpitations Physical Exam Vital Signs: Last Vital Signs Pulse 78 05/07/24 11:05 BP 140/78 H 05/07/24 11:05 BMI result Body Mass Index 31.0 Repeat blood pressure 130/80 Const General: cooperative, comfortable, no acute distress, alert and awake Nutritional Appearance: overweight Orientation/consciousness: patient oriented x3 Limitations: no limitations Neck Neck: Yes trachea midline, Yes supple and Yes no JVD Chest Chest palpation & inspection: normal inspection of the chest Resp Effort & Inspection: normal respiratory effort Auscultation: clear to auscultation bilaterally Cardio Jugular venous distension: no JVD Palpation: normal PMI Rhythm: abnormal rhythm irregularly irregular Heart sounds: S1 normal heart sound present, S2 normal heart sound present, no click, no gallops, no murmurs and Other heart sounds present (S4 present) GI Auscultation: normal bowel sounds Skin General skin exam: no rashes or lesions noted Neuro General: patient oriented x3 and no focal motor deficits Extrem General: Yes no clubbing, cyanosis or edema Psych Appearance: grossly normal Office Procedures EKG Details: EKG shows atrial fibrillation with nonspecific ST T wave changes at 77 beats per minute 09915-[id number], Complete Assessment & Plan Assessment & Plan (1) CAD (coronary artery disease): Code(s): I25.10 - Atherosclerotic heart disease of [place] coronary artery without angina pectoris Category: Medical Qualifiers: Coronary Disease-Associated Artery/Lesion type: [place] artery [place] vs. transplanted heart: [place] heart Associated angina: without angina Qualified Code(s): I25.10 - Atherosclerotic heart disease of [place] coronary artery without angina pectoris Plan: CAD with remote stenting of RCA. No symptoms of angina. Continue aggressive medical therapy. Currently on full oral anticoagulation with warfarin and will therefore avoid aspirin therapy. He is multiple comorbidities including chronic kidney disease chronic atrial fibrillation. Blood pressure is currently well optimized advised to monitor blood pressure at home maintain a log. Continue high-intensity statin therapy. Target goal LDL less than 70 mg/dL. (2) Atrial fibrillation: Code(s): I48.91 - Unspecified atrial fibrillation Category: Medical Qualifiers: Atrial fibrillation type: permanent Qualified Code(s): I48.21 - Permanent atrial fibrillation Plan: Chronic atrial fibrillation has failed rhythm control approach will continue pursue rate control approach. Continue current therapy with metoprolol. Currently on full oral anticoagulation warfarin being monitored by [facility]. Maintain target INR between 2 and 3. Also on digoxin therapy and should have digoxin assay performed in 3 months. Advised digoxin assay today. Follow up in the clinic in 1 year's time after an echocardiogram. Thank you for allowing me to partake in his care Orders: Orders Digoxin Today I48.20 - Chronic atrial fibrillation, unspecified, I48.21 - Permanent atrial fibrillation Uric Acid Today I48.21 - Permanent atrial fibrillation CA echo transthoracic complete 1 Year I48.21 - Permanent atrial fibrillation CA echo transthoracic complete Today I48.21 - Permanent atrial fibrillation Coding Level of Care Code Est Pt Level 4 (06527) Diagnoses Coronary artery disease involving [place] coronary artery of [place] heart without angina pectoris I25.10 Coronary Disease-Associated Artery/Lesion type: [place] artery [place] vs. transplanted heart: [place] heart Associated angina: without angina Permanent atrial fibrillation I48.21 Atrial fibrillation type: permanent CPT Codes EKG - CPT: 11591-Qozzzcemagtddgpie, Complete ([id number])
== END 2024-05-07 11:36 | disposition home or self-care (01) ==
PROVIDERS: PCP Family Medicine; Visit Provider Internal Medicine Cardiovascular Disease
DX: I25.10 Atherosclerotic heart disease of native coronary artery without angina pectoris (principal); I48.21 Permanent atrial fibrillation
CPT/HCPCS: 93010; 99214

== ENCOUNTER → 2024-05-07 10:58 | Outpatient (BNVA) | payer OTHER, SELFPAY | PROVIDERS: PCP Family Medicine; Visit Provider Internal Medicine Cardiovascular Disease | DX: I25.10 Atherosclerotic heart disease of native coronary artery without angina pectoris (principal); I48.21 Permanent atrial fibrillation; Z79.01 Long term (current) use of anticoagulants; Z79.899 Other long term (current) drug therapy | CPT/HCPCS: 93005; 99212 ==

== ENCOUNTER 2024-05-10 11:50 | Outpatient (REF) | payer OTHER, SELFPAY ==
[2024-05-10 13:32] LABS: Digoxin 0.7 ng/mL (0.8-2.0)
== END 2024-05-10 11:51 | disposition home or self-care (01) ==
LOC: HO.LAB 11:50
PROVIDERS: Absent Provider Surgery Vascular Surgery; PCP Physician Assistant; Visit Provider Internal Medicine Cardiovascular Disease
DX: I48.20 Chronic atrial fibrillation, unspecified (principal); I48.21 Permanent atrial fibrillation
CPT/HCPCS: 36415; 80162; 84550; 85610; 99211

== ENCOUNTER 2024-05-10 12:09 | Outpatient (AMB) | payer OTHER, SELFPAY ==
--- NOTE | 2024-05-10 12:16 | MHC.OFFVISCO ---
Intake Intake Visit Reasons: Anticoagulation Allergies lisinopril [LISINOPRIL] Allergy (Severe, Verified 05/10/24 12:10) ACUTE KIDNEY INJURY oxycodone [Percocet] Allergy (Intermediate, Verified 05/10/24 12:10) agitation codeine [CODEINE] Allergy (Unknown, Verified 05/10/24 12:10) AGITATION morphine [MORPHINE] Allergy (Unknown, Verified 05/10/24 12:10) AGITATION, confusion From PERCOCET Allergy (Unknown, Uncoded 05/10/24 12:10) AGITATION Medication List - Last Reconciled 05/10/24 by Lisa White RN atorvastatin 80 mg PO QAM bisacodyl (Dulcolax (bisacodyl)) 10 mg (2 x 5 mg) PO BEDTIME 2 days cetirizine 5 mg PO DAILY PRN cholecalciferol (vitamin D3) 25 mcg PO DAILY compression socks, large As directed digoxin 125 mcg PO QAM febuxostat (Uloric) 40 mg PO DAILY fluticasone propionate 50 mcg/actuation 1 spray intranasal DAILY 30 days gabapentin 200 mg (2 x 100 mg) PO BEDTIME 30 days ekijei-citmtvbd-xeljaxb 36,000-114,000- 180,000 unit (Creon) 2 caps PO BID meclizine 25 mg PO TID PRN 10 days metoprolol tartrate 100 mg PO BID peg 3350-electrolytes 236-22.74-6.74 -5.86 gram (Golytely) 240 mL PO Q10M 1 day prednisone 10 mg PO DAILY psyllium husk (Daily Fiber) 0.4 grams PO BID simethicone 180 mg PO QID 30 days warfarin 5 mg PO DAILY Nursing Note pt to acs after lab draw req to be seen instead of wed 05/15/24 INR: 2.9- in therapeutic range of 2-3 Medications and supplements reviewed- taking prednisone 10mg daily for gout per urgent care- 30 prednisone recommended but pt states taking 10mg daily. tylenol prn- aware to increase greens with increased tylenol usage No changes in health, diet, medications, or supplements, Denies any signs and symptoms of bleeding or bruising or clotting. Bleeding, bruising, clotting discussed Nutritional guidance given Dose: 7.5mg x 1. 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
[2024-05-10 12:17] LABS: Prothrombin Time Whole Bld POC 35.3 sec (11.1-13.5); ~PT, ~INR - Anti Coag Clinic 2.9 (0.9-1.1)
== END 2024-05-10 12:23 | disposition home or self-care (01) ==
LOC: HO.ACS 12:09
PROVIDERS: PCP Physician Assistant; Visit Provider Internal Medicine
DX: Z79.01 Long term (current) use of anticoagulants (principal)

== ENCOUNTER → 2024-05-30 11:10 | Outpatient (REF) | payer OTHER, SELFPAY ==
--- NOTE | 2024-05-30 11:12 | CA_ITS ---
Transthoracic Echocardiogram Patient (Last, First, Middle): Ziggy Payton R Gender: Male Date of : 1950 Age: 74 Procedure Date: 05/30/2024 Procedure Type: Transthoracic Echocardiogram Location: OP Height: 167.64 cm Weight: 86.18 kg BSA: 1.96 m2 Heart Rate: bpm BP: 160 / 90 mmHg Etch Operator Semiconductor Wafers: RAMESH Referring MD: Chan Cain MD Automotive Sales Executive: Chan Cain MD Symptoms: I48.21 - Permanent atrial fibrillation Study Quality: Fair ECG Rhythm: Atrial Fibrillation Conclusions: - 1. Normal LV ejection fraction 55-60% 2. Moderate biatrial enlargement 3. Early mild aortic stenosis 4. Clxq-ap-ksvahpcm elevation of right ventricular systolic pressure mildly elevated right atrial pressures 5. Mildly dilated ascending aorta at 3.7 cm 6. No gross pericardial effusion Findings Left Ventricle Normal left ventricular size and systolic function. There is mildly increased left ventricular wall thickness. The visually estimated ejection fraction is between 55-60%. Diastolic function is indeterminate on the basis of available data. Right Ventricle Normal right ventricular cavity size and systolic function. Atria The left atrium is moderately dilated. There is no evidence of interatrial shunt. The right atrium is moderately dilated. Aortic Valve There is mild calcification of the aortic valve. There is mild thickening of the aortic valve. There is mild aortic valve stenosis. The peak aortic velocity is 1.66 m/s with a calculated peak gradient of 11 mmHg. The mean gradient is 6 mmHg. The aortic valve area is 1.97 cm2. There is no aortic valve regurgitation. Mitral Valve There is mild anterior and posterior mitral leaflet thickening. There is mild mitral annular calcification. There is mild mitral valve regurgitation. There is no mitral valve stenosis. Pulmonic Valve The pulmonic valve was not well visualized. Tricuspid Valve Likely normal tricuspid valve structure and function. There is mild tricuspid valve regurgitation. Mildly elevated right atrial pressure. Mild to moderate pulmonary hypertension is present. Great Vessels The pulmonary artery was not well visualized. There is mild dilatation of the ascending aorta measuring 3.70 cm. Small plaque is seen in the sino tubular ridge. Venous The inferior vena cava is mildly dilated and collapses less than 50% with inspiration. Pericardium/Pleural There is no evidence of pericardial effusion. Prior Study Comparison Changes noted compared to prior study dated: 12/28/2021. RV systolic pressure is elevated Measurements 2D Linear Measurements IVSd: 1.16 0.6-0.9/0.6-1.0 cm LVIDd: 4.78 3.9-5.3/4.2-5.9 cm LVIDd Index: 2.44 2.4-3.2/2.2-3.1 cm/m2 LVIDs: 3.75 2.0-3.6 cm LVPWd: 1.20 0.7-1.1 cm LA Diam: 4.20 2.7-3.8/3.0-4.0 cm LAIDs Index: 2.14 1.5-2.3 cm/m2 LV Mass: 264.97 67-162/88-224 g LV Mass Index: 135.19 43-95/49-115 g/m2 LVOT Diam: 2.10 3.0+(-)1.3 cm 2D Systolic Function EF 4C: 60.90 >55% EF 2C: 55.10 >55% EF BiP: 58.80 >55% Mitral Valve MV Pk E: 1.13 MV Decel Time: 178.00 E'Lateral: 7.72 E'Medial: 6.08 E/E' Med: 18.60 E/E' Lat: 14.60 PHT: 52.00 MVA PHT: 4.23 Decel Sutter: 6.39 Aortic Valve AoV Pk Reuben: 1.66 AoV Mn Reuben: 1.16 AoV VTI: 0.34 AoV Pk Grad: 11.00 Aov Mn Grad: 6.00 REMY Cont.VTI: 1.97 LVOT LVOT Pk Reuben: 0.96 LVOT Mn Reuben: 0.67 LVOT VTI: 0.19 LVOT Pk Grad: 4.00 LVOT Mn Grad: 2.00 LVOT Diam: 2.10 LVOT Area: 3.46 Diastolic Function MV Pk E: 1.13 E'Medial: 6.08 E/E' Med: 18.60 E' Laterial: 7.72 E/E' Lat: 14.60 Right Ventricle TAPSE (mm): 18.60 TVS' Reuben: 8.57 Tricuspid Valve TR Pk Reuben: 3.05 TR Pk Grad: 37.00 RA Press: 8.00 RVSP: 45.00 Great Vessels Aorta Sinus of Valsalva: 3.69 2.0-3.[address] [place]: 2.82 1.7-3.4 cm Ao Asc: 3.70 2.1-3.4 cm Updated in Other Vendor System with Status of Final Chan Cain MD electronically signed on 05/30/2024 2:33:11 PM with status of Final
== END ==
LOC: HO.CARD 11:10
PROVIDERS: PCP Physician Assistant; Visit Provider Internal Medicine Cardiovascular Disease
DX: I48.21 Permanent atrial fibrillation (principal)
CPT/HCPCS: 93306

== ENCOUNTER → 2024-05-30 11:12 | Outpatient (BNV) | payer OTHER, SELFPAY | PROVIDERS: PCP Physician Assistant; Visit Provider Internal Medicine Cardiovascular Disease | DX: I35.0 Nonrheumatic aortic (valve) stenosis (principal); I34.0 Nonrheumatic mitral (valve) insufficiency; I36.1 Nonrheumatic tricuspid (valve) insufficiency | CPT/HCPCS: 93306 ==

== ENCOUNTER 2024-06-05 11:12 | Outpatient (REF) | payer OTHER, SELFPAY ==
[2024-06-05 12:55] LABS: Digoxin 0.9 ng/mL (0.8-2.0)
[2024-06-05 13:05] LABS: Anion Gap 14 (12-20); Blood Urea Nitrogen 50 mg/dL (9-16); Carbon Dioxide 23 mmol/L (22-29); Chloride 111 mmol/L (96-108); Estimated Glomerular Filt Rate 21; Glucose Random 165 mg/dL (60-115); Potassium 4.7 mmol/L (3.3-5.1); Sodium 143 mmol/L (135-145)
== END 2024-06-05 11:13 | disposition home or self-care (01) ==
LOC: HO.LAB 11:12
PROVIDERS: Internal Medicine Cardiovascular Disease; Surgery Vascular Surgery; PCP Physician Assistant; Visit Provider Internal Medicine Hypertension Specialist
DX: I48.0 Paroxysmal atrial fibrillation (principal); Z51.81 Encounter for therapeutic drug level monitoring; Z79.01 Long term (current) use of anticoagulants; E87.5 Hyperkalemia; N18.30 Chronic kidney disease, stage 3 unspecified; Z79.899 Other long term (current) drug therapy
CPT/HCPCS: 36415; 80048; 80162; 85610; 99211

== ENCOUNTER 2024-06-05 11:12 | Outpatient (AMB) | payer OTHER, SELFPAY ==
--- NOTE | 2024-06-05 11:19 | MHC.OFFVISCO ---
Intake Intake Visit Reasons: Anticoagulation Allergies lisinopril [LISINOPRIL] Allergy (Severe, Verified 06/05/24 11:13) ACUTE KIDNEY INJURY oxycodone [Percocet] Allergy (Intermediate, Verified 06/05/24 11:13) agitation codeine [CODEINE] Allergy (Unknown, Verified 06/05/24 11:13) AGITATION morphine [MORPHINE] Allergy (Unknown, Verified 06/05/24 11:13) AGITATION, confusion From PERCOCET Allergy (Unknown, Uncoded 06/05/24 11:13) AGITATION Medication List - Last Reconciled 06/05/24 by Lisa White RN atorvastatin 80 mg PO QAM bisacodyl (Dulcolax (bisacodyl)) 10 mg (2 x 5 mg) PO BEDTIME 2 days cetirizine 5 mg PO DAILY PRN cholecalciferol (vitamin D3) 25 mcg PO DAILY compression socks, large As directed digoxin 125 mcg PO QAM febuxostat (Uloric) 40 mg PO DAILY fluticasone propionate 50 mcg/actuation 1 spray intranasal DAILY 30 days gabapentin 200 mg (2 x 100 mg) PO BEDTIME 30 days [id number]-nxqhhmiw-ctctlqh 36,000-114,000- 180,000 unit (Creon) 2 caps PO BID meclizine 25 mg PO TID PRN 10 days metoprolol tartrate 100 mg PO BID peg 3350-electrolytes 236-22.74-6.74 -5.86 gram (Golytely) 240 mL PO Q10M 1 day prednisone 10 mg PO DAILY psyllium husk (Daily Fiber) 0.4 grams PO BID simethicone 180 mg PO QID 30 days warfarin 5 mg See Protocol PO DAILY Nursing Note INR: 2.9- in therapeutic range of 2-3 Medications and supplements reviewed- [facility] to review meds with pcp pt [facility] pt has nurse from [place] to review meds No changes in health, diet, medications, or supplements, Denies any signs and symptoms of bleeding or bruising or clotting. Bleeding, bruising, clotting discussed Nutritional guidance given Dose: 5mg x 6, 7.5mg x 1 F/U INR: 4 weeks Patient verbalizes understanding of instructions given Anti-Coag Initial Assessment Social Hx Patient Tobacco Use Status: Former Tobacco user alcohol intake: former Alcohol intake frequency: does not drink Coding Level of Care Code Est Patient Level 1 Diagnoses Current use of anticoagulant therapy Z79.01 Assessment & Plan Assessment & Plan (1) Current use of anticoagulant therapy: Code(s): Z79.01 - alf (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
[2024-06-05 11:20] LABS: Prothrombin Time Whole Bld POC 34.9 sec (11.1-13.5); ~PT, ~INR - Anti Coag Clinic 2.9 (0.9-1.1)
== END 2024-06-05 11:31 | disposition home or self-care (01) ==
LOC: HO.ACS 11:12
PROVIDERS: PCP Physician Assistant; Visit Provider Internal Medicine
DX: Z79.01 Long term (current) use of anticoagulants (principal)

== ENCOUNTER 2024-06-10 13:38 | Outpatient (AMB) | payer OTHER, SELFPAY ==
[2024-06-10 13:40] VITALS: BP 150/92; PULSE 74; O2SAT 94; BMI 30.8
--- NOTE | 2024-06-10 13:40 | HO.NEPHOV ---
Vital Signs 06/10/24 13:40 Height 5 ft 6 in Weight 191 lb BMI 30.8 BP 150/92 H Blood Pressure Location Rt brachial Position Sitting Pulse 74 Pulse Source Pulse Oximeter Pulse Oximetry (%) 94 Oxygen Delivery Method Room Air Intake Visit Reasons: Chronic kidney disease/ 4 MO FU/Conf Senior Recruitment Consultant Required: No Accompanied by: Son Allergies lisinopril [LISINOPRIL] Allergy (Severe, Verified 06/05/24 11:13) ACUTE KIDNEY INJURY oxycodone [Percocet] Allergy (Intermediate, Verified 06/05/24 11:13) agitation codeine [CODEINE] Allergy (Unknown, Verified 06/05/24 11:13) AGITATION morphine [MORPHINE] Allergy (Unknown, Verified 06/05/24 11:13) AGITATION, confusion From PERCOCET Allergy (Unknown, Uncoded 06/05/24 11:13) AGITATION Medication List - Last Reconciled 06/10/24 by Alex Garcia MD atorvastatin 80 mg PO QAM bisacodyl (Dulcolax (bisacodyl)) 10 mg (2 x 5 mg) PO BEDTIME 2 days cetirizine 5 mg PO DAILY PRN cholecalciferol (vitamin D3) 25 mcg PO DAILY compression socks, large As directed digoxin 125 mcg PO QAM febuxostat (Uloric) 40 mg PO DAILY fluticasone propionate 50 mcg/actuation 1 spray intranasal DAILY 30 days gabapentin 200 mg (2 x 100 mg) PO BEDTIME 30 days gyssba-guclxepz-eujdzvy 36,000-114,000- 180,000 unit (Creon) 2 caps PO BID meclizine 25 mg PO TID PRN 10 days metoprolol tartrate 100 mg PO BID peg 3350-electrolytes 236-22.74-6.74 -5.86 gram (Golytely) 240 mL PO Q10M 1 day prednisone 10 mg PO DAILY psyllium husk (Daily Fiber) 0.4 grams PO BID simethicone 180 mg PO QID 30 days warfarin 5 mg See Protocol PO DAILY HPI Comments Details: Elderly man with 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 He is here for regular follow-up. Accompanied by son. History of gout he was treated with a course of prednisone. He took Uloric for a month and stopped it REcently returned from [place] Ate plenty of Papaya and fruits/Nuts 06/10/24 ON Uloric Gout under control Off LAsix still has foot pain - mostly in heel PFSH Medical History (Updated 05/07/24 @ 16:35 by Chan Cain MD) Sinus bradycardia Pre-op examination Annual physical exam History of TIA (transient ischemic attack) Gout Personal history of nicotine dependence Chronic kidney disease, stage 3 unspecified Benign prostatic hyperplasia with lower urinary tract symptoms HTN (hypertension) CAD (coronary artery disease) Paroxysmal atrial fibrillation Surgical History Stented coronary artery Hx of colonoscopy Hx of cardiac cath Hx of cystoscopy History of esophagogastroduodenoscopy (EGD) Hx of cataract extraction Family History Mother CAD (coronary artery disease) Diabetes HTN (hypertension) Father CAD (coronary artery disease) Diabetes HTN (hypertension) Social History Housing: Apartment Alcohol intake: former Patient Tobacco Use Status: Former Tobacco user Years Smoked: 40 +/- e-Cigarette/Vaping Use: Never Used service: No Current occupational status: retired and disabled Cognitive needs: No Hearing needs: No Vision needs: Yes Physical Exam Vital Signs: Last Vital Signs Pulse 74 06/10/24 13:40 BP 150/92 H 06/10/24 13:40 Pulse Ox 94 06/10/24 13:40 Oxygen Delivery Method Room Air 06/10/24 13:40 BMI result Body Mass Index 30.8 Neck Neck: Yes supple Resp Auscultation: clear to auscultation bilaterally Cardio Palpation: no palpable S3 Heart sounds: no rubs GI Palpation (GI): Soft to palpation Auscultation: normal bowel sounds Neuro Motor exam (neuro): no asterixis Results Reviewed Nephrology Results: Sodium 143 mmol/L (135-145) 06/05/24 Potassium 4.7 mmol/L (3.3-5.1) 06/05/24 Chloride 111 mmol/L (96-108) H 06/05/24 Carbon Dioxide 23 mmol/L (22-29) 06/05/24 BUN 50 mg/dL (9-16) H 06/05/24 Creatinine 2.94 mg/dL (0.5-1.4) H 06/05/24 Calcium 9.0 mg/dL (8.4-10.2) 06/05/24 Assessment & Plan Assessment & Plan (1) Chronic kidney disease, stage 3 unspecified: Code(s): N18.30 - Chronic kidney disease, stage 3 unspecified Category: Medical Qualifiers: Chronic kidney disease stage 3 subtype: stage 3a (GFR 45-59) Qualified Code(s): N18.31 - Chronic kidney disease, stage 3a Plan: Chronic disease due to interstitial nephritis by biopsy. Initial biopsy was done only [facility] and no tissue was obtained. Repeat biopsy was done and was [facility] which revealed interstitial nephritis with global sclerosis. At present renal function is at baseline. Continue to avoid nephrotoxic agents. Will monitor renal function closely (2) HTN (hypertension): Code(s): I10 - Essential (primary) hypertension Category: Medical Qualifiers: Hypertension type: primary hypertension Qualified Code(s): I10 - Essential (primary) hypertension Plan: Blood pressure is Elevated Would ADD AMLODIPINE 2.5 mg DAILY ( 06/10/24) and titrate dose Low-salt diet (3) Gout: Code(s): M10.9 - Gout, unspecified Category: Medical Plan: Seems to be under control. Keep Uloric to lower uric acid We discussed low purine diet (4) Hyperkalemia: Code(s): E87.5 - Hyperkalemia Category: Medical Plan: Low K diet Recheck- if elevated, would add Lokelma Orders: Orders Uric Acid Today N18.31 - Chronic kidney disease, stage 3a Parathyroid Hormone Intact Today N18.31 - Chronic kidney disease, stage 3a Basic Metabolic Panel Today N18.31 - Chronic kidney disease, stage 3a Complete Blood Count Auto Diff Today N18.31 - Chronic kidney disease, stage 3a Medications: New amlodipine 2.5 mg PO DAILY 90 tabs 0RF Coding Level of Care Code Est Pt Level 4 (07716) Diagnoses Stage 3a chronic kidney disease N18.31 Chronic kidney disease stage 3 subtype: stage 3a (GFR 45-59) Primary hypertension I10 Hypertension type: primary hypertension Gout M10.9 Hyperkalemia E87.5
== END 2024-06-10 14:01 | disposition home or self-care (01) ==
PROVIDERS: PCP Physician Assistant; Visit Provider Internal Medicine Hypertension Specialist
DX: N18.31 Chronic kidney disease, stage 3a (principal); I10 Essential (primary) hypertension; M10.9 Gout, unspecified; E87.5 Hyperkalemia
CPT/HCPCS: 99214

== ENCOUNTER → 2024-06-10 13:38 | Outpatient (BNVA) | payer OTHER, SELFPAY | PROVIDERS: PCP Physician Assistant; Visit Provider Internal Medicine Hypertension Specialist | DX: I12.9 Hypertensive chronic kidney disease with stage 1 through stage 4 chronic kidney disease, or unspecified chronic kidney disease (principal); N18.31 Chronic kidney disease, stage 3a; E87.5 Hyperkalemia; M10.9 Gout, unspecified | CPT/HCPCS: 99212 ==

== ENCOUNTER 2024-06-11 15:15 | Outpatient (REF) | payer OTHER, SELFPAY ==
--- NOTE | ~2024-06-11 | CT_ITS ---
EXAMINATION: CT CHEST WITHOUT CONTRAST CLINICAL INFORMATION: Thoracic aortic aneurysm, without rupture. COMPARISON: CT chest 06/05/2023, 04/14/2022 TECHNIQUE: Multidetector volumetric CT imaging of the chest was done. Axial MIP volume rendering provided. Sagittal and coronal reformatted images were obtained. This CT examination was performed using dose optimization techniques as appropriate, variously including the following: *Automated exposure control *Adjustment of mA and/or kV according to patient size (this includes techniques or standardized protocols for targeted exams where dose is matched to indication/reason for exam; i.e. extremities or head) *Use of iterative reconstruction technique DLP: 139 mGy-cm FINDINGS: LUNGS: There are few scattered calcified granulomas for which no imaging follow-up is recommended. No suspicious nodule is appreciated. MEDIASTINUM: The ascending aorta measures 3.9 x 3.8 cm when measured on coronal and sagittal imaging perpendicular to blood flow. The distal aortic arch measures 4.2 x 4.1 cm. The proximal descending aorta measures 4.1 x 4.0 cm the distal descending aorta measures 3.3 x 3.2 cm. The upper abdominal aorta is normal in caliber. CORONARY ARTERY CALCIFICATION: Present. PLEURA: There is no pleural effusion. No pleural mass or thickening. AXILLA: No lymphadenopathy. UPPER ABDOMEN: Cholelithiasis. OSSEOUS STRUCTURES: Degenerative changes in the spine. 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 Fleischner guidelines were followed.
[2024-06-13 10:22] LABS: Creatinine POC 2.3 mg/dL (0.5-1.4); GFR POC 30
== END 2024-06-11 15:16 | disposition home or self-care (01) ==
LOC: HO.CT 15:15
PROVIDERS: PCP Physician Assistant; Visit Provider Surgery Vascular Surgery
DX: I71.23 Aneurysm of the descending thoracic aorta, without rupture (principal)
CPT/HCPCS: 71250; 82565

== ENCOUNTER 2024-06-18 11:16 | Outpatient (AMB) | payer OTHER, SELFPAY ==
--- NOTE | 2024-06-18 11:22 | A.OFFVIS_ITS ---
Intake Visit Reasons: f/u s/p CTA Chest Aorta 06/11 Intake Note: Patient presents for follow up CT Chest aorta , states he has no complaints. Allergies lisinopril [LISINOPRIL] Allergy (Severe, Verified 06/18/24 11:23) ACUTE KIDNEY INJURY oxycodone [Percocet] Allergy (Intermediate, Verified 06/18/24 11:23) agitation codeine [CODEINE] Allergy (Unknown, Verified 06/18/24 11:23) AGITATION morphine [MORPHINE] Allergy (Unknown, Verified 06/18/24 11:23) AGITATION, confusion From PERCOCET Allergy (Unknown, Uncoded 06/05/24 11:13) AGITATION HPI HPI f/u s/p CTA Chest Aorta 06/11: Details: Very pleasant 74-year-old gentleman presents for annual surveillance follow-up regarding his descending thoracic aneurysm. It has been a proximally 4 cm for the last 2 or 3 scans. Now presents for annual follow-up. He has no significant changes in the interim. He does report that he does have some pain on ambulation but relates this more to arthritis and gout. He now presents for follow-up with CT scan. [facility] Medical History Sinus bradycardia Pre-op examination Annual physical exam History of TIA (transient ischemic attack) Gout Personal history of nicotine dependence Chronic kidney disease, stage 3 unspecified Benign prostatic hyperplasia with lower urinary tract symptoms HTN (hypertension) CAD (coronary artery disease) Paroxysmal atrial fibrillation Surgical History Stented coronary artery Hx of colonoscopy Hx of cardiac cath Hx of cystoscopy History of esophagogastroduodenoscopy (EGD) Hx of cataract extraction Family History Mother CAD (coronary artery disease) Diabetes HTN (hypertension) Father CAD (coronary artery disease) Diabetes HTN (hypertension) Social History Housing: Apartment Alcohol intake: former Patient Tobacco Use Status: Former Tobacco user Years Smoked: 40 +/- e-Cigarette/Vaping Use: Never Used service: No Current occupational status: retired and disabled Cognitive needs: No Hearing needs: No Vision needs: Yes Review of Systems Const All systems reviewed & are unremarkable except as noted in HPI and below Reports no additional complaints ENT Reports Normal hearing present Card Denies chest pain, Denies chest pain at rest, Denies chest pain with activity and Denies pedal edema Resp Denies cough GI Denies abdominal pain Musc Denies abnormal gait, Denies muscle cramps and Denies radiating pain into limb Skin/Breast Denies skin ulcer and Denies wounds Neuro Reports Normal hearing present and Denies abnormal gait Psych Reports no additional complaints Physical Exam Const General: cooperative, healthy appearing and comfortable Orientation/consciousness: oriented to person, oriented to place and oriented to time HEENT Head: Yes normal to inspection Neck Neck: Yes normal visual inspection Carotids: no bruits Chest Chest palpation & inspection: normal inspection of the chest Resp Effort & Inspection: normal respiratory effort and able to speak in complete sentences Auscultation: clear to auscultation bilaterally, no crackles, no rales, no rhonchi and no wheezes Cardio Other: Palpable bilateral dorsalis pedis pulses Rate: regular rate Rhythm: regular rhythm Heart sounds: S1 normal heart sound present and S2 normal heart sound present Bruits: no carotid bruits Peripheral pulses: Peripheral pulses 2+ throughout GI Inspection: Yes normal to inspection Skin Wounds: no wounds Hair: normal Neuro General: oriented to person, oriented to place and oriented to time Cranial nerves: Yes CN's II-XII intact bilaterally and Yes Normal hearing present Cognition (Neuro): normal cognition Motor exam (neuro): 5/5 motor strength present throughout Extrem Other: venous exam: No significant superficial varicosities or spider telangiect asias, minimal edema General: No clubbing, No cyanosis and No edema Psych Appearance: grossly normal Mental Status: mental status grossly normal Speech and movement: Normal speech and movement present Results Reviewed Results Reviewed: CT scan dated 06/12/2023 demonstrates descending aorta measuring 4.1 x 4 cm. Written report and images were reviewed. Assessment & Plan Assessment & Plan (1) Aneurysm of descending thoracic aorta: Code(s): I71.2 - Thoracic aortic aneurysm, without rupture Category: Medical Qualifiers: Presence of rupture: without rupture Qualified Code(s): I71.23 - Aneurysm of the descending thoracic aorta, without rupture Plan: In short patient has stable descending thoracic aortic aneurysm. It has been stable on the last 2-3 scans. Will monitor with annual noncontrast CT. Should there be any interval changes happy to see him back sooner. Thank you for all owing us to assist in his care. If there are any questions or concerns please do not hesitate to contact us. Orders: Orders CT chest wo IV con 1 Year I71.23 - Aneurysm of the descending thoracic aorta, without rupture Coding Level of Care Code Est Pt Level 4 (82507) Diagnoses Aneurysm of descending thoracic aorta without rupture I71.23 Presence of rupture: without rupture
== END 2024-06-18 11:34 | disposition home or self-care (01) ==
PROVIDERS: PCP Physician Assistant; Visit Provider Surgery Vascular Surgery
DX: I71.23 Aneurysm of the descending thoracic aorta, without rupture (principal)
CPT/HCPCS: 99214

== ENCOUNTER → 2024-06-18 11:16 | Outpatient (BNVA) | payer OTHER, SELFPAY | PROVIDERS: PCP Physician Assistant; Visit Provider Surgery Vascular Surgery | DX: I71.23 Aneurysm of the descending thoracic aorta, without rupture (principal) | CPT/HCPCS: 99212 ==

== ENCOUNTER 2024-06-24 11:12 | Outpatient (AMB) | payer OTHER, SELFPAY ==
[2024-06-24 11:42] VITALS: BP 118/80; PULSE 97; O2SAT 96; BMI 30.4
--- NOTE | 2024-06-24 11:42 | MHC.PC.OV ---
Vital Signs 06/24/24 11:42 Height 5 ft 6 in Weight 188 lb 2 oz BMI 30.4 BP 118/80 Blood Pressure Location Lt brachial Position Sitting Pulse 97 Pulse Source Pulse Oximeter Pulse Oximetry (%) 96 Oxygen Delivery Method Room Air Intake Visit Reasons: 3mth f/u Dental Equipment Mechanic Required: No Accompanied by: Son Allergies lisinopril [LISINOPRIL] Allergy (Severe, Verified 06/24/24 11:59) ACUTE KIDNEY INJURY oxycodone [Percocet] Allergy (Intermediate, Verified 06/24/24 11:59) agitation codeine [CODEINE] Allergy (Unknown, Verified 06/24/24 11:59) AGITATION morphine [MORPHINE] Allergy (Unknown, Verified 06/24/24 11:59) AGITATION, confusion From PERCOCET Allergy (Unknown, Uncoded 06/24/24 11:59) AGITATION Medication List - Last Reconciled 06/24/24 by Preet An PA-C amlodipine 2.5 mg PO DAILY atorvastatin 80 mg PO QAM bisacodyl (Dulcolax (bisacodyl)) 10 mg (2 x 5 mg) PO BEDTIME 2 days cetirizine 5 mg PO DAILY PRN cholecalciferol (vitamin D3) 25 mcg PO DAILY compression socks, large As directed digoxin 125 mcg PO QAM febuxostat (Uloric) 40 mg PO DAILY fluticasone propionate 50 mcg/actuation 1 spray intranasal DAILY 30 days gabapentin 200 mg (2 x 100 mg) PO BEDTIME 30 days [id number] 36,000-114,000- 180,000 unit (Creon) 2 caps PO BID meclizine 25 mg PO TID PRN 10 days metoprolol tartrate 100 mg PO BID peg 3350-electrolytes 236-22.74-6.74 -5.86 gram (Golytely) 240 mL PO Q10M 1 day prednisone 10 mg PO DAILY psyllium husk (Daily Fiber) 0.4 grams PO BID simethicone 180 mg PO QID 30 days warfarin 5 mg See Protocol PO DAILY Tobacco use date assessed: 11/21/23 Fall risk assessment: No Falls in past year Last assessed Fall Risk: 06/24/24 Dental Screening Dental Screen Date: 11/21/23 HPI 3mth f/u HPI Details Patient is a 73 year male here today for follow-up visit Patient has a past medical history significant for AFib (followed by Cardiology), gout, thoracic aortic aneurysm (followed by vascular) hypertension, CKD stage 3(followed by Nephrology), coronary artery disease. Concern--> reports having bilateral pedal edema and bilateral foot pain for the past several months. Did see urgent care in April and was prescribed a water pill which helped a bit. Unclear if this is a side effect to calcium channel roger or manifestation of his gout. .. AFib: Continues on warfarin for anticoagulation. Also followed by [facility]. .. CKD stage 3: Has interstitial nephritis confirmed by biopsy. Continues to follow Nephrology. Stable creatinine seems to be from 2.1-2.4. .. Gout: Does take uric acid lowering medication which was recently increased by his academic affairs specialist. Does from time to time have pain in his ankles and feet that are short lived. [facility] Medical History (Updated 06/24/24 @ 14:27 by Preet An PA-C) Allergies Sinus bradycardia Pre-op examination Annual physical exam History of TIA (transient ischemic attack) Gout Personal history of nicotine dependence Chronic kidney disease, stage 3 unspecified Benign prostatic hyperplasia with lower urinary tract symptoms HTN (hypertension) CAD (coronary artery disease) Paroxysmal atrial fibrillation Surgical History Stented coronary artery Hx of colonoscopy Hx of cardiac cath Hx of cystoscopy History of esophagogastroduodenoscopy (EGD) Hx of cataract extraction Family History Mother CAD (coronary artery disease) Diabetes HTN (hypertension) Father CAD (coronary artery disease) Diabetes HTN (hypertension) Social History Housing: Apartment Alcohol intake: former Patient Tobacco Use Status: Former Tobacco user Years Smoked: 40 +/- e-Cigarette/Vaping Use: Never Used service: No Current occupational status: retired and disabled Cognitive needs: No Hearing needs: No Vision needs: Yes Questionnaire Thrive Questionnaire Date Thrive assessed: 11/21/23 FAUSTINA-7 AMB Questionnaire FAUSTINA-7 Date FAUSTINA - 7 assessed: 11/21/23 Source: Developed by Drs. Jasson Ramos, Alanna Allen, Wai Tanner and colleagues, with an educational marcell from [employer]. Review of Systems Const Denies headache(s) Eyes Denies loss of vision ENT Denies vertigo, Denies dizziness, Denies headache(s) and Denies sore throat Card Denies chest pain, Denies leg edema and Denies lightheadedness Resp Denies cough, Denies hemoptysis and Denies wheezing GI Denies abdominal pain, Denies melena, Denies constipation, Denies diarrhea and Denies vomiting Denies dysuria, Denies urinary frequency and Denies urinary urgency Musc Denies arthralgias, Denies joint swelling, Denies numbness and Denies tingling Neuro Denies Abnormal speech present, Denies behavioral changes, Denies vertigo, Denies dizziness, Denies headache(s), Denies loss of vision, Denies memory loss, Denies numbness and Denies tingling Psych Denies anxiety, Denies behavioral changes, Denies depression, Denies memory loss and Denies panic attacks Adonis/Lymph Denies easy bleeding and Denies easy bruising Aller/Immun Denies wheezing Physical exam (Primary Care) Vital Signs: Last Vital Signs Pulse 97 06/24/24 11:42 BP 118/80 06/24/24 11:42 Pulse Ox 96 06/24/24 11:42 Oxygen Delivery Method Room Air 06/24/24 11:42 BMI result Body Mass Index 30.4 Tobacco/Smoking Status: Tobacco use Status Tobacco use date assessed 11/21/23 06/24/24 11:44 Patient Tobacco Use Status Former Tobacco user 06/24/24 11:44 e-Cigarette/Vaping Use Never Used 06/24/24 11:44 Thrive Assessment: Date of Thrive Assessment Date Thrive assessed 11/21/23 06/24/24 11:44 Const General: healthy appearing, no acute distress, alert and awake Nutritional Appearance: well nourished Orientation/consciousness: oriented to person, oriented to place and oriented to time HENMT Ears: TM's normal bilaterally General nose exam: Normal nasal mucous membranes and turbinates present Eyes Conjunctivae: conjunctivae normal Sclerae: sclerae normal Pupils: Equal, round and reactive pupils present Neck Neck: Yes no lymphadenopathy and Yes no JVD Thyroid: Thyroid normal Carotids: no bruits Resp Effort & Inspection: normal respiratory effort and not tachypneic Auscultation: no crackles, no rales, no rhonchi and no wheezes Cardio Rate: regular rate Rhythm: regular rhythm Heart sounds: no murmurs and normal S1 and S2 GI Palpation (GI): Soft to palpation, nontender, no hepatomegaly and no splenomegaly Auscultation: normal bowel sounds Skin General skin exam: no rashes or lesions noted and dry skin Neuro General: oriented to person, oriented to place and oriented to time Cranial nerves: Yes Equal, round and reactive pupils present Speech: No Abnormal speech present Gait exam (Neuro): Normal gait present Motor exam (neuro): no tremor noted Extrem Right upper extremity: full ROM Left upper extremity: full ROM Right lower extremity: full ROM; no edema Left lower extremity: full ROM; no edema Psych Mental Status: mental status grossly normal Speech and movement: Normal speech and movement present Affect: normal affect Attitude: cooperative Thought process: Normal thought process present Assessment and Plan Assessment & Plan (1) Atrial fibrillation: Code(s): I48.91 - Unspecified atrial fibrillation Qualifiers: Atrial fibrillation type: permanent Qualified Code(s): I48.21 - Permanent atrial fibrillation Plan: Continues on warfarin in INRs have been fairly stable. No overt signs of bleeding. He is under rhythm and rate control with digoxin and metoprolol. No recent episodes chest discomfort, dizziness or heart palpitations. (2) Chronic kidney disease, stage 3 unspecified: Code(s): N18.30 - Chronic kidney disease, stage 3 unspecified Qualifiers: Chronic kidney disease stage 3 subtype: stage 3a (GFR 45-59) Qualified Code(s): N18.31 - Chronic kidney disease, stage 3a Plan: Followed by Nephrology. Did have biopsy years ago showing interstitial nephritis., Creatinine seems to be stable around 2.1-2.5. Will avoid nephrotoxin medication. (3) CAD (coronary artery disease): Code(s): I25.10 - Atherosclerotic heart disease of [place] coronary artery without angina pectoris Qualifiers: Associated angina: without angina Coronary Disease-Associated Artery/Lesion type: [place] artery [place] vs. 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 Continues on high-dose statin therapy. Goal LDL to be below 70 (4) HTN (hypertension): Code(s): I10 - Essential (primary) hypertension Qualifiers: Hypertension type: primary hypertension Qualified Code(s): I10 - Essential (primary) hypertension Plan: Blood pressure stable today in office. Continues to follow academic affairs specialist as well. Was recently started on amlodipine 2.5 mg and blood pressure seem to have been better.. Goal blood pressures to remain below 140/90. (5) Lower extremity edema: Code(s): R60.0 - Localized edema Plan: As per HPI patient has been experiencing chronic lower extremity edema. Did get prescribe water pills by urgent care which helped a bit though continues with some trace edema in bilateral lower extremities. Unclear if this is a gout manifestation or arthritis in his feet. He will start using compression socks as conservative treatment. Orders: Orders Lipid Panel Today E78.00 - Pure hypercholesterolemia, unspecified Comprehensive [place]. Panel Fast Today I25.10 - Atherosclerotic heart disease of [place] coronary artery without angina pectoris Complete Blood Count no Diff Today I25.10 - Atherosclerotic heart disease of [place] coronary artery without angina pectoris Medications: Refilled meclizine 25 mg PO TID PRN 30 tabs 0RF dizziness 10 days meclizine 25 mg PO TID 10 days PRN 30 tabs 0RF dizziness compression socks, large As directed 2 ea 0RF R60.0 - Localized edema Discontinued [id number] 36,000-114,000- 180,000 unit (Creon) administer with meals and/or snacks Discontinued Reason: Doctor's Order 2 caps PO BID 60 caps 6RF K58.9 - Irritable bowel syndrome without diarrhea, K92.89 - Other specified diseases of the digestive system psyllium husk (Daily Fiber) Discontinued Reason: Doctor's Order 0.4 grams PO BID 60 caps 6RF K59.00 - Constipation, unspecified Patient Instructions: Goal: Blood pressure to be below 140/90 my LDL to be optimally below 70 Barriers: Adherence to physical activity and healthy eating habits Coding Level of Care Code Est Pt Level 4 (94796) Diagnoses Permanent atrial fibrillation I48.21 Atrial fibrillation type: permanent Stage 3a chronic kidney disease N18.31 Chronic kidney disease stage 3 subtype: stage 3a (GFR 45-59) Coronary artery disease involving [place] coronary artery of [place] heart without angina pectoris I25.10 Associated angina: without angina Coronary Disease-Associated Artery/Lesion type: [place] artery [place] vs. transplanted heart: [place] heart Primary hypertension I10 Hypertension type: primary hypertension Lower extremity edema R60.0
== END 2024-06-24 12:28 | disposition home or self-care (01) ==
PROVIDERS: PCP Physician Assistant; Visit Provider Physician Assistant
DX: I12.9 Hypertensive chronic kidney disease with stage 1 through stage 4 chronic kidney disease, or unspecified chronic kidney disease (principal); N18.31 Chronic kidney disease, stage 3a; I48.21 Permanent atrial fibrillation; I25.10 Atherosclerotic heart disease of native coronary artery without angina pectoris; R60.0 Localized edema
CPT/HCPCS: 99214

== ENCOUNTER 2024-07-03 11:03 | Outpatient (AMB) | payer OTHER, SELFPAY ==
[2024-07-03 11:29] LABS: Prothrombin Time Whole Bld POC 43.2 sec (11.1-13.5); ~PT, ~INR - Anti Coag Clinic 3.6 (0.9-1.1)
--- NOTE | 2024-07-03 11:36 | MHC.OFFVISCO ---
Intake Intake Visit Reasons: Anticoagulation Allergies lisinopril [LISINOPRIL] Allergy (Severe, Verified 07/03/24 11:22) ACUTE KIDNEY INJURY oxycodone [Percocet] Allergy (Intermediate, Verified 07/03/24 11:22) agitation codeine [CODEINE] Allergy (Unknown, Verified 07/03/24 11:22) AGITATION morphine [MORPHINE] Allergy (Unknown, Verified 07/03/24 11:22) AGITATION, confusion From PERCOCET Allergy (Unknown, Uncoded 07/03/24 11:22) AGITATION Medication List - Last Reconciled 07/03/24 by Gosia Alexander RN amlodipine 2.5 mg PO DAILY atorvastatin 80 mg PO QAM bisacodyl (Dulcolax (bisacodyl)) 10 mg (2 x 5 mg) PO BEDTIME 2 days cetirizine 5 mg PO DAILY PRN cholecalciferol (vitamin D3) 25 mcg PO DAILY compression socks, large As directed digoxin 125 mcg PO QAM febuxostat (Uloric) 40 mg PO DAILY fluticasone propionate 50 mcg/actuation 1 spray intranasal DAILY 30 days gabapentin 200 mg (2 x 100 mg) PO BEDTIME 30 days meclizine 25 mg PO TID PRN 10 days metoprolol tartrate 100 mg PO BID peg 3350-electrolytes 236-22.74-6.74 -5.86 gram (Golytely) 240 mL PO Q10M 1 day simethicone 180 mg PO QID 30 days warfarin 5 mg See Protocol PO DAILY Nursing Note Amb to [facility] accomp by Bangladeshi speaking adult son Feeling well no C/O Medications and supplements reviewed No changes in health, diet, medications, or supplements, Denies any signs and symptoms of bleeding, bruising, or clotting. Bleeding, bruising, clotting discussed INR 3.6 above therapeutic range, pts diet mostly fast food, very little veggies, per son has been eating/drinking more fruit and fruit juices Dose: decrease today from 5mg to 2.5mg then resume usual dosing of 7.5mg on Mondays and 5mg all other days F/U INR: 2 weeks Patient and son verbalizes understanding of instructions given Anti-Coag Initial Assessment Social Hx Patient Tobacco Use Status: Former Tobacco user alcohol intake: former Alcohol intake frequency: does not drink Coding Level of Care Code Est Patient Level 1 Diagnoses Current use of anticoagulant therapy Z79.01 Time Spent (min) 15 Assessment & Plan Assessment & Plan (1) Current use of anticoagulant therapy: Code(s): Z79.01 - senior living (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
== END 2024-07-03 11:43 | disposition home or self-care (01) ==
LOC: HO.ACS 11:03
PROVIDERS: PCP Physician Assistant; Visit Provider Internal Medicine
DX: Z79.01 Long term (current) use of anticoagulants (principal)

== ENCOUNTER → 2024-07-03 11:03 | Outpatient (BNVA) | payer OTHER, SELFPAY | PROVIDERS: PCP Physician Assistant; Visit Provider Internal Medicine | DX: I48.0 Paroxysmal atrial fibrillation (principal); Z51.81 Encounter for therapeutic drug level monitoring; Z79.01 Long term (current) use of anticoagulants | CPT/HCPCS: 85610; 99211 ==

== ENCOUNTER 2024-07-19 11:05 | Outpatient (AMB) | payer OTHER, SELFPAY ==
[2024-07-19 11:30] LABS: Prothrombin Time Whole Bld POC 24.1 sec (11.1-13.5)
--- NOTE | 2024-07-19 11:34 | MHC.OFFVISCO ---
Intake Intake Visit Reasons: Anticoagulation Allergies lisinopril [LISINOPRIL] Allergy (Severe, Verified 07/19/24 11:25) ACUTE KIDNEY INJURY oxycodone [Percocet] Allergy (Intermediate, Verified 07/19/24 11:25) agitation codeine [CODEINE] Allergy (Unknown, Verified 07/19/24 11:25) AGITATION morphine [MORPHINE] Allergy (Unknown, Verified 07/19/24 11:25) AGITATION, confusion From PERCOCET Allergy (Unknown, Uncoded 07/19/24 11:25) AGITATION Medication List - Last Reconciled 07/19/24 by Gosia Cano, BINA amlodipine 2.5 mg PO DAILY atorvastatin 80 mg PO QAM bisacodyl (Dulcolax (bisacodyl)) 10 mg (2 x 5 mg) PO BEDTIME 2 days cetirizine 5 mg PO DAILY PRN cholecalciferol (vitamin D3) 25 mcg PO DAILY compression socks, large As directed digoxin 125 mcg PO QAM febuxostat (Uloric) 40 mg PO DAILY fluticasone propionate 50 mcg/actuation 1 spray intranasal DAILY 30 days gabapentin 200 mg (2 x 100 mg) PO BEDTIME 30 days meclizine 25 mg PO TID PRN 10 days metoprolol tartrate 100 mg PO BID 90 days peg 3350-electrolytes 236-22.74-6.74 -5.86 gram (Golytely) 240 mL PO Q10M 1 day simethicone 180 mg PO QID 30 days warfarin 5 mg See Protocol PO DAILY Nursing Note Pt to [facility] accompanied by son who speaks French and translates for pt. Pt able to speak some French. INR: 2.0 in therapeutic range 2-3 Medications and supplements reviewed No changes in health, diet, medications, or supplements, Denies any signs and symptoms of bleeding or bruising or clotting. Bleeding, bruising, clotting discussed Nutritional guidance given to avoid greens today and to have a serving of foods from the list that raises the INR Dose: 5mg X 6 days and 7.5mg X 1 day F/U INR: 2 weeks Patient verbalizes understanding of instructions given Anti-Coag Initial Assessment Social Hx Patient Tobacco Use Status: Former Tobacco user alcohol intake: former Alcohol intake frequency: does not drink Coding Level of Care Code Est Patient Level 1 Diagnoses Current use of anticoagulant therapy Z79.01 Assessment & Plan Assessment & Plan (1) Current use of anticoagulant therapy: Code(s): Z79.01 - [facility] (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
== END 2024-07-19 11:37 | disposition home or self-care (01) ==
LOC: HO.ACS 11:05
PROVIDERS: PCP Physician Assistant; Visit Provider Internal Medicine
DX: Z79.01 Long term (current) use of anticoagulants (principal)

== ENCOUNTER → 2024-07-19 11:05 | Outpatient (BNVA) | payer OTHER, SELFPAY | PROVIDERS: PCP Physician Assistant; Visit Provider Internal Medicine | DX: I48.0 Paroxysmal atrial fibrillation (principal); Z79.01 Long term (current) use of anticoagulants; Z51.81 Encounter for therapeutic drug level monitoring | CPT/HCPCS: 85610; 99211 ==

== ENCOUNTER 2024-08-02 11:03 | Outpatient (AMB) | payer OTHER, SELFPAY ==
--- NOTE | 2024-08-02 11:28 | MHC.OFFVISCO ---
Intake Intake Visit Reasons: Anticoagulation Allergies lisinopril [LISINOPRIL] Allergy (Severe, Verified 08/02/24 11:04) ACUTE KIDNEY INJURY oxycodone [Percocet] Allergy (Intermediate, Verified 08/02/24 11:04) agitation codeine [CODEINE] Allergy (Unknown, Verified 08/02/24 11:04) AGITATION morphine [MORPHINE] Allergy (Unknown, Verified 08/02/24 11:04) AGITATION, confusion From PERCOCET Allergy (Unknown, Uncoded 08/02/24 11:04) AGITATION Medication List - Last Reconciled 08/02/24 by Anne Gould RN amlodipine 2.5 mg PO DAILY atorvastatin 80 mg PO QAM bisacodyl (Dulcolax (bisacodyl)) 10 mg (2 x 5 mg) PO BEDTIME 2 days cetirizine 5 mg PO DAILY PRN cholecalciferol (vitamin D3) 25 mcg PO DAILY compression socks, large As directed digoxin 125 mcg PO QAM febuxostat (Uloric) 40 mg PO DAILY fluticasone propionate 50 mcg/actuation 1 spray intranasal DAILY 30 days gabapentin 200 mg (2 x 100 mg) PO BEDTIME 30 days meclizine 25 mg PO TID PRN 10 days metoprolol tartrate 100 mg PO BID 90 days peg 3350-electrolytes 236-22.74-6.74 -5.86 gram (Golytely) 240 mL PO Q10M 1 day simethicone 180 mg PO QID 30 days warfarin 5 mg See Protocol PO DAILY Nursing Note ambulated to visit with son INR 4.2? out of therapeutic range Medications and supplements reviewed Patient status: possible stomach virus for about 10 days- chills, nausea no appetite occ diarrhea and lots of gas - enc him to take his gas tabs - told pt that viruses can take 2 weeks to get over but if cont to not feel well or becomes weak to call md or go to ER Medications or supplements: may take simethacone Diet: decreased- has been having leonie tea Denies any signs and symptoms of bleeding or clotting or unusual bruising e Bleeding, bruising, clotting discussed Nutritional guidance given: increase greens when taking leonie tea or have green tea Dose: hold today then 7.5mg x 1 day/ 5mg x 6 days F/U INR Date : 10 days?? Patient and son verbalizing understanding of instructions given. Anti-Coag Initial Assessment Social Hx Patient Tobacco Use Status: Former Tobacco user alcohol intake: former Alcohol intake frequency: does not drink Coding Level of Care Code Est Patient Level 1 Diagnoses Current use of anticoagulant therapy Z79.01 Results AMB INR Fingerstick AMB INR Fingerstick 4.2 Last Edit by Anne Gould RN on 08/02/24 11:14 manual entry Assessment & Plan Assessment & Plan (1) Current use of anticoagulant therapy: Code(s): Z79.01 - [facility] (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
[2024-08-02 12:34] LABS: Prothrombin Time Whole Bld POC 50.1 sec (11.1-13.5); ~PT, ~INR - Anti Coag Clinic 4.2 (0.9-1.1)
== END 2024-08-02 11:32 | disposition home or self-care (01) ==
LOC: HO.ACS 11:03
PROVIDERS: PCP Physician Assistant; Visit Provider Internal Medicine
DX: Z79.01 Long term (current) use of anticoagulants (principal)

== ENCOUNTER → 2024-08-02 11:03 | Outpatient (BNVA) | payer OTHER, SELFPAY | PROVIDERS: PCP Physician Assistant; Visit Provider Internal Medicine | DX: I48.0 Paroxysmal atrial fibrillation (principal); Z79.01 Long term (current) use of anticoagulants; Z51.81 Encounter for therapeutic drug level monitoring | CPT/HCPCS: 85610; 99211 ==

== ENCOUNTER 2024-08-12 11:06 | Outpatient (AMB) | payer OTHER, SELFPAY ==
--- NOTE | 2024-08-12 11:21 | MHC.OFFVISCO ---
Intake Intake Visit Reasons: Anticoagulation Allergies lisinopril [LISINOPRIL] Allergy (Severe, Verified 08/12/24 11:21) ACUTE KIDNEY INJURY oxycodone [Percocet] Allergy (Intermediate, Verified 08/12/24 11:21) agitation codeine [CODEINE] Allergy (Unknown, Verified 08/12/24 11:21) AGITATION morphine [MORPHINE] Allergy (Unknown, Verified 08/12/24 11:21) AGITATION, confusion From PERCOCET Allergy (Unknown, Uncoded 08/12/24 11:21) AGITATION Medication List - Last Reconciled 08/12/24 by Lisa White RN amlodipine 2.5 mg PO DAILY atorvastatin 80 mg PO QAM bisacodyl (Dulcolax (bisacodyl)) 10 mg (2 x 5 mg) PO BEDTIME 2 days cetirizine 5 mg PO DAILY PRN cholecalciferol (vitamin D3) 25 mcg PO DAILY compression socks, large As directed digoxin 125 mcg PO QAM febuxostat (Uloric) 40 mg PO DAILY fluticasone propionate 50 mcg/actuation 1 spray intranasal DAILY 30 days gabapentin 200 mg (2 x 100 mg) PO BEDTIME 30 days meclizine 25 mg PO TID PRN 10 days metoprolol tartrate 100 mg PO BID 90 days peg 3350-electrolytes 236-22.74-6.74 -5.86 gram (Golytely) 240 mL PO Q10M 1 day simethicone 180 mg PO QID 30 days warfarin 5 mg See Protocol PO DAILY Nursing Note INR: 2.1- in therapeutic range of 2-3 Medications and supplements reviewed- no changes No changes in health, diet, medications, or supplements, Denies any signs and symptoms of bleeding or bruising or clotting. Bleeding, bruising, clotting discussed Nutritional guidance given Dose: 5mg x 6, 7.5mg x 1 F/U INR: 2 weeks Patient verbalizes understanding of instructions given pt states colonoscopy 09/03/24- composed note to pcp for warfarin hold and ? lovenox Anti-Coag Initial Assessment Social Hx Patient Tobacco Use Status: Former Tobacco user alcohol intake: former Alcohol intake frequency: does not drink Coding Level of Care Code Est Patient Level 1 Diagnoses Current use of anticoagulant therapy Z79.01 Assessment & Plan Assessment & Plan (1) Current use of anticoagulant therapy: Code(s): Z79.01 - [facility] (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
[2024-08-12 11:26] LABS: Prothrombin Time Whole Bld POC 25.7 sec (11.1-13.5); ~PT, ~INR - Anti Coag Clinic 2.1 (0.9-1.1)
== END 2024-08-12 11:51 | disposition home or self-care (01) ==
LOC: HO.ACS 11:06
PROVIDERS: PCP Physician Assistant; Visit Provider Internal Medicine
DX: Z79.01 Long term (current) use of anticoagulants (principal)

== ENCOUNTER → 2024-08-12 11:06 | Outpatient (BNVA) | payer OTHER, SELFPAY | PROVIDERS: PCP Physician Assistant; Visit Provider Internal Medicine | DX: I48.0 Paroxysmal atrial fibrillation (principal); Z79.01 Long term (current) use of anticoagulants; Z51.81 Encounter for therapeutic drug level monitoring | CPT/HCPCS: 85610; 99211 ==

== ENCOUNTER 2024-08-26 11:18 | Outpatient (AMB) | payer OTHER, SELFPAY ==
--- NOTE | 2024-08-26 11:53 | MHC.OFFVISCO ---
Intake Intake Visit Reasons: Anticoagulation Allergies lisinopril [LISINOPRIL] Allergy (Severe, Verified 08/26/24 11:32) ACUTE KIDNEY INJURY oxycodone [Percocet] Allergy (Intermediate, Verified 08/26/24 11:32) agitation codeine [CODEINE] Allergy (Unknown, Verified 08/26/24 11:32) AGITATION morphine [MORPHINE] Allergy (Unknown, Verified 08/26/24 11:32) AGITATION, confusion From PERCOCET Allergy (Unknown, Uncoded 08/26/24 11:32) AGITATION Medication List - Last Reconciled 08/26/24 by Gosia Cano, RN amlodipine 2.5 mg PO DAILY atorvastatin 80 mg PO QAM bisacodyl (Dulcolax (bisacodyl)) 10 mg (2 x 5 mg) PO BEDTIME 2 days bisacodyl (Dulcolax (bisacodyl)) 20 mg (4 x 5 mg) PO ONCE 1 day cetirizine 5 mg PO DAILY PRN cholecalciferol (vitamin D3) 25 mcg PO DAILY compression socks, large As directed digoxin 125 mcg PO QAM febuxostat (Uloric) 40 mg PO DAILY fluticasone propionate 50 mcg/actuation 1 spray intranasal DAILY 30 days gabapentin 200 mg (2 x 100 mg) PO BEDTIME 30 days meclizine 25 mg PO TID PRN 10 days metoprolol tartrate 100 mg PO BID 90 days peg 3350-electrolytes 236-22.74-6.74 -5.86 gram (Golytely) 240 mL PO Q10M 1 day simethicone 180 mg PO QID 30 days simethicone (Gas Relief (simethicone)) 125 mg PO ONCE warfarin 5 mg See Protocol PO DAILY Nursing Note Pt to [facility] accompanied by son INR 4.6?out of therapeutic range of 2-3 Pt denied taking an extra dose. Medications and supplements reviewed Patient status: well, no illness Medications or supplements: only change is that pt had previously stopped taking gabapentin because the son said the pt was forgetful so the MD said to stop that med. Pt did but then had neuropathy pain so restarted the med. According to micromedex and up-to-date, there is no effect on the INR with gabapentin. Diet: usual diet for pt Denies any signs and symptoms of bleeding or clotting or unusual bruising Bleeding, bruising, clotting discussed. Denies blood in urine or stool. Denies nosebleeds or bleeding gums. Nutritional guidance given: to have a serving of greens today. Food list reviewed and given to pt. Dose: decrease today's dose to 2.5mg (7.5mg) then 5mg daily until LD on 08/30/24 then 3 day hold in prep for colonoscopy on 09/03/24 F/U INR Date : 09/09/24?? Patient and son verbalizing understanding of instructions given. Anti-Coag Initial Assessment Social Hx Patient Tobacco Use Status: Former Tobacco user alcohol intake: former Alcohol intake frequency: does not drink Coding Level of Care Code Est Patient Level 1 Diagnoses Current use of anticoagulant therapy Z79.01 Results AMB INR Fingerstick AMB INR Fingerstick 4.6 Last Edit by Gosia Cano RN on 08/26/24 11:42 interface delay Assessment & Plan Assessment & Plan (1) Current use of anticoagulant therapy: Code(s): Z79.01 - detention (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
[2024-08-26 12:29] LABS: Prothrombin Time Whole Bld POC 55.3 sec (11.1-13.5); ~PT, ~INR - Anti Coag Clinic 4.6 (0.9-1.1)
== END 2024-08-26 12:02 | disposition home or self-care (01) ==
LOC: HO.ACS 11:18
PROVIDERS: PCP Physician Assistant; Visit Provider Internal Medicine
DX: Z79.01 Long term (current) use of anticoagulants (principal)

== ENCOUNTER → 2024-08-26 11:18 | Outpatient (BNVA) | payer OTHER, SELFPAY | PROVIDERS: PCP Physician Assistant; Visit Provider Internal Medicine | DX: I48.0 Paroxysmal atrial fibrillation (principal); Z79.01 Long term (current) use of anticoagulants; Z51.81 Encounter for therapeutic drug level monitoring | CPT/HCPCS: 85610; 99211 ==

== ENCOUNTER 2024-09-09 11:15 | Outpatient (AMB) | payer OTHER, SELFPAY ==
[2024-09-09 11:21] LABS: Prothrombin Time Whole Bld POC 35.6 sec (11.1-13.5)
--- NOTE | 2024-09-09 11:21 | MHC.OFFVISCO ---
Intake Intake Visit Reasons: Anticoagulation Allergies lisinopril [LISINOPRIL] Allergy (Severe, Verified 09/09/24 11:16) ACUTE KIDNEY INJURY oxycodone [Percocet] Allergy (Intermediate, Verified 09/09/24 11:16) agitation codeine [CODEINE] Allergy (Unknown, Verified 09/09/24 11:16) AGITATION morphine [MORPHINE] Allergy (Unknown, Verified 09/09/24 11:16) AGITATION, confusion From PERCOCET Allergy (Unknown, Uncoded 09/09/24 11:16) AGITATION Medication List - Last Reconciled 09/09/24 by Lisa White RN amlodipine 2.5 mg PO DAILY atorvastatin 80 mg PO QAM bisacodyl (Dulcolax (bisacodyl)) 10 mg (2 x 5 mg) PO BEDTIME 2 days bisacodyl (Dulcolax (bisacodyl)) 20 mg (4 x 5 mg) PO ONCE 1 day cetirizine 5 mg PO DAILY PRN cholecalciferol (vitamin D3) 25 mcg PO DAILY compression socks, large As directed digoxin 125 mcg PO QAM febuxostat (Uloric) 40 mg PO DAILY fluticasone propionate 50 mcg/actuation 1 spray intranasal DAILY 30 days gabapentin 200 mg (2 x 100 mg) PO BEDTIME 30 days meclizine 25 mg PO TID PRN 10 days metoprolol tartrate 100 mg PO BID 90 days peg 3350-electrolytes 236-22.74-6.74 -5.86 gram (Golytely) 240 mL PO Q10M 1 day simethicone 180 mg PO QID 30 days simethicone (Gas Relief (simethicone)) 125 mg PO ONCE warfarin 5 mg See Protocol PO DAILY Nursing Note INR: 3.0- in therapeutic range of 2-3 Medications and supplements reviewed- restarted gabapentin- no interaction with warfarin per micromedex No changes in health, diet, medications, or supplements, Denies any signs and symptoms of bleeding or bruising or clotting. Bleeding, bruising, clotting discussed Nutritional guidance given - have greens today Dose: 7.5mg x 1. 5mg x 6 F/U INR: pt req 2 weeks Patient verbalizes understanding of instructions given pt was supposed to have colonoscopy 09/03/24, did not go. held warfarin for 3 days, restarted 09/03/24 Anti-Coag Initial Assessment Social Hx Patient Tobacco Use Status: Former Tobacco user alcohol intake: former Alcohol intake frequency: does not drink Coding Level of Care Code Est Patient Level 1 Diagnoses Current use of anticoagulant therapy Z79.01 Assessment & Plan Assessment & Plan (1) Current use of anticoagulant therapy: Code(s): Z79.01 - emt intermediate (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
== END 2024-09-09 11:35 | disposition home or self-care (01) ==
LOC: HO.ACS 11:15
PROVIDERS: PCP Physician Assistant; Visit Provider Internal Medicine
DX: Z79.01 Long term (current) use of anticoagulants (principal)

== ENCOUNTER → 2024-09-09 11:15 | Outpatient (BNVA) | payer OTHER, SELFPAY | PROVIDERS: PCP Physician Assistant; Visit Provider Internal Medicine | DX: I48.0 Paroxysmal atrial fibrillation (principal); Z79.01 Long term (current) use of anticoagulants; Z51.81 Encounter for therapeutic drug level monitoring | CPT/HCPCS: 85610; 99211 ==

== ENCOUNTER 2024-09-17 12:55 | Outpatient (AMB) | payer OTHER, SELFPAY ==
--- NOTE | 2024-09-17 13:01 | A.OFFVIS_ITS ---
Vital Signs 09/17/24 13:02 Height 5 ft 6 in Weight 191 lb BMI 30.8 BP 145/85 H Blood Pressure Location Rt brachial Position Sitting Pulse 101 H Intake Visit Reasons: 6 months follow up IBS Intake Note: Patient in office today in 6 months follow up of IBS. CC: Patient c/o diarrhea, abdominal pain, and dark stools. Patient also reports BLE swelling and rash, congestion, and feeling congestion on his left ear. Per patient he would like to have colonoscopy rescheduled as he could not have it done because he was having diarrhea non stop after taking the bowel prep. Field Logistics Coordinator Required: No Accompanied by: Self / Same As Patient Allergies lisinopril [LISINOPRIL] Allergy (Severe, Verified 09/17/24 13:09) ACUTE KIDNEY INJURY oxycodone [Percocet] Allergy (Intermediate, Verified 09/17/24 13:09) agitation codeine [CODEINE] Allergy (Unknown, Verified 09/17/24 13:09) AGITATION morphine [MORPHINE] Allergy (Unknown, Verified 09/17/24 13:09) AGITATION, confusion From PERCOCET Allergy (Unknown, Uncoded 09/09/24 11:16) AGITATION HPI HPI 6 months follow up IBS: Details: Assessment & Plan (1) IBS (irritable bowel syndrome): Code(s): K58.9 - Irritable bowel syndrome without diarrhea Category: Medical (2) Constipation: Code(s): K59.00 - Constipation, unspecified Category: Medical (3) Gas bloat syndrome: Code(s): K92.89 - Other specified diseases of the digestive system Category: Medical (4) Tubular adenoma of colon: Comment: 2011 AND 2018-[facility] due for repeat colonoscopy in 2023 Code(s): D12.6 - Benign neoplasm of colon, unspecified Category: Medical Plan Slovak # son translates per pt request He is on creon, fiber and simethicone. He remains satisfied with his GI regimen. He is aware of the upcoming colonoscopy and will keep his office visit afterwards as his next visit. He has a follow up with me 08/01/2024. Medications: Refilled bisacodyl (Dulcolax (bisacodyl)) 10 mg (2 x 5 mg) PO BEDTIME 4 tabs 0RF 2 days [id number] 36,000-114,000- 180,000 unit (Creon) administer with meals and/or snacks 2 caps PO BID 60 caps 6RF K58.9 - Irritable bowel syndrome without diarrhea, K92.89 - Other specified diseases of the digestive system simethicone after meals 180 mg PO QID 120 caps 6RF 30 days psyllium husk (Daily Fiber) 0.4 grams PO BID 60 caps 6RF K59.00 - Constipation, unspecified COLONOSCOPY Scheduled for 07/18/2024 BIOPSY TODAY'S VISIT Slov[place] #son translates per pt request PATIENT HAS BEEN LOST TO FOLLOW-UP SINCE 04/16/2024 He tells me that he had to cancel the colonoscopy because the prep took quite a long time to onset and he was still having diarrhea in the morning and he did not feel well. However with reviewing the prep it seems that he was not in taking enough fluids and this likely was affecting the prep process. Also, I think the bisacodyl was too much for him and will try prepping him just with the PEG solution. Since he complained of quite a lot of gas I will also give him simethicone tablets. Also complaining of increasing black stools mostly being looser. While most of them or diarrhea he will occasionally have softer stools but they still remain black. He admits to utilizing Pepto-Bismol but only occasionally. He does not take an iron supplement. He is on Coumadin so this concerns me somewhat for GI bleed so I think we are going to get fit testing and order an EGD with the colonoscopy to be thorough and protect his health. Also since the diarrhea is new will get a GI panel, especially since he showing an elevated white blood cell count as of labs were just drawn a few days ago. Will also get food allergy testing and a fecal calprotectin. He also has leukocytosis and he tells me he is has a rash on his legs. I examined this and he has pitting edema bilaterally with venous stasis dermatitis. I do not see any severe exacerbation of this that would require antibiotic treatment but we did discuss the role of compression therapy. Apparently he is in between getting compression socks that he likes to wear. I also reviewed his last echocardiogram and there does not seem to be any sign of diastolic dysfunction but I still encouraged him to show this swelling to both his sewer pipe layer and his renal doctor as they can best coordinate therapy. This is especially true since they asked me about diuretic therapy which would be quite tricky given his AFib and his chronic kidney disease. Return office visit in 4 weeks to go over the labs and devise a plan of treatment. [facility] Medical History Allergies Sinus bradycardia Pre-op examination Annual physical exam History of TIA (transient ischemic attack) Gout Personal history of nicotine dependence Chronic kidney disease, stage 3 unspecified Benign prostatic hyperplasia with lower urinary tract symptoms HTN (hypertension) CAD (coronary artery disease) Paroxysmal atrial fibrillation Surgical History Stented coronary artery Hx of colonoscopy Hx of cardiac cath Hx of cystoscopy History of esophagogastroduodenoscopy (EGD) Hx of cataract extraction Family History Mother CAD (coronary artery disease) Diabetes HTN (hypertension) Father CAD (coronary artery disease) Diabetes HTN (hypertension) Social History Housing: Apartment Alcohol intake: former Patient Tobacco Use Status: Former Tobacco user Years Smoked: 40 +/- e-Cigarette/Vaping Use: Never Used service: No Current occupational status: retired and disabled Cognitive needs: No Hearing needs: No Vision needs: Yes Review of Systems Const Denies fatigue, Denies fever(s), Denies night sweats, Denies poor appetite and Denies weight loss ENT Reports Normal hearing present, Denies dental pain, Denies dysphagia, Denies hearing loss, Denies mouth pain, Denies odynophagia, Denies throat swelling, Denies tongue swelling and Reports other (Dentition adequate) Card Reports leg edema Resp Reports no additional complaints GI Details: Denies abdominal pain, Reports melena, Denies bloating, Denies hematochezia, Denies constipation, Denies GI cramping, Denies dysphagia, Denies excessive flatus, Denies early satiety, Reports heartburn, Reports diarrhea, Denies nausea, Denies odynophagia, Denies vomiting and Denies hematemesis Musc Reports myalgias and Reports arthralgias Skin/Breast Denies pruritus, Denies lesions, Reports rash and Denies jaundice Neuro Reports Normal hearing present and Denies Abnormal speech present Endo Denies fatigue Aller/Immun Denies throat swelling and Denies tongue swelling Physical Exam Vital Signs: Last Vital Signs Pulse 101 H 09/17/24 13:02 BP 145/85 H 09/17/24 13:02 BMI result Body Mass Index 30.8 Const General: cooperative, no acute distress, well developed and well groomed Nutritional Appearance: well nourished and obese Orientation/consciousness: oriented to person, oriented to place and oriented to time Limitations: language barrier HEENT Head: Yes normocephalic and Yes atraumatic Eyes General: appearance normal, both eyes and all related structures Pupils: Equal, round and reactive pupils present Neck Neck: Yes normal visual inspection and Yes no lymphadenopathy Thyroid: Thyroid normal Resp Effort & Inspection: normal respiratory effort and able to speak in complete sentences Auscultation: clear to auscultation bilaterally Cardio Rate: regular rate Rhythm: abnormal rhythm irregularly irregular Heart sounds: Murmur heart sound present systolic (faint ? aortic interimittent) Peripheral pulses: radial pulses present and posterior tibial pulses present GI Inspection: No distended, No Abdominal panniculus present and Yes obesity Palpation (GI): Soft to palpation, nontender, no guarding, not rigid and No hepatosplenomegaly present Percussion: Yes normal to percussion Auscultation: normal bowel sounds Rectal Exam - Male: Yes deferred Skin General skin exam: no rashes or lesions noted, turgor normal, skin not dry, no jaundice, No spider nevi and no striae Rashes: no rashes Nails: normal Neuro General: oriented to person, oriented to place and oriented to time Cranial nerves: Yes Equal, round and reactive pupils present and Yes Normal hearing present Speech: No Abnormal speech present Extrem General: Yes normal to inspection, No clubbing, No cyanosis, Yes edema (+2 rt, +1 left) and Yes venous stasis dermatitis Psych Appearance: grossly normal and well kempt Mental Status: mental status grossly normal Speech and movement: Normal speech and movement present Affect: normal affect Attitude: cooperative Thought process: Circumstantial thought process present and not confabulating Thought content: Normal thought content present Insight: Limited insight present (Psych) Judgement: Limited judgement present (Psych) Assessment & Plan Assessment & Plan (1) Tubular adenoma of colon: Comment: 2011 AND 2018-[facility] due for repeat colonoscopy in 2023 Code(s): D12.6 - Benign neoplasm of colon, unspecified Category: Medical (2) Chronic kidney disease, stage 3 unspecified: Code(s): N18.30 - Chronic kidney disease, stage 3 unspecified Category: Medical Qualifiers: Chronic kidney disease stage 3 subtype: stage 3a (GFR 45-59) Qualified Code(s): N18.31 - Chronic kidney disease, stage 3a (3) Current use of anticoagulant therapy: Code(s): Z79.01 - residential (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 (4) Melena: Code(s): K92.1 - Melena Category: Medical (5) Diarrhea: Code(s): R19.7 - Diarrhea, unspecified Category: Medical (6) Leukocytosis: Code(s): D72.829 - Elevated white blood cell count, unspecified Category: Medical (7) Lower extremity edema: Code(s): R60.0 - Localized edema Category: Medical (8) Venous stasis dermatitis: Code(s): I87.2 - Venous insufficiency (chronic) (peripheral) Category: Medical Plan [place] #son translates per pt request PATIENT HAS BEEN LOST TO FOLLOW-UP SINCE 04/16/2024 He tells me that he had to cancel the colonoscopy because the prep took quite a long time to onset and he was still having diarrhea in the morning and he did not feel well. However with reviewing the prep it seems that he was not in taking enough fluids and this likely was affecting the prep process. Also, I think the bisacodyl was too much for him and will try prepping him just with the PEG solution. Since he complained of quite a lot of gas I will also give him simethicone tablets. Also complaining of increasing black stools mostly being looser. While most of them or diarrhea he will occasionally have softer stools but they still remain black. He admits to utilizing Pepto-Bismol but only occasionally. He does not take an iron supplement. He is on Coumadin so this concerns me somewhat for GI bleed so I think we are going to get fit testing and order an EGD with the colonoscopy to be thorough and protect his health. Also since the diarrhea is new will get a GI panel, especially since he showing an elevated white blood cell count as of labs were just drawn a few days ago. Will also get food allergy testing and a fecal calprotectin. He also has leukocytosis and he tells me he is has a rash on his legs. I examined this and he has pitting edema bilaterally with venous stasis dermatitis. I do not see any severe exacerbation of this that would require antibiotic treatment but we did discuss the role of compression therapy. Apparently he is in between getting compression socks that he likes to wear. I also reviewed his last echocardiogram and there does not seem to be any sign of diastolic dysfunction but I still encouraged him to show this swelling to both his sewer pipe layer and his renal doctor as they can best coordinate therapy. This is especially true since they asked me about diuretic therapy which would be quite tricky given his AFib and his chronic kidney disease. Return office visit in 4 weeks to go over the labs and devise a plan of treatment. LABS: EGD/COLONOSCOPY BIOPSY Orders: Orders FITS Today K92.1 - Melena GI Panel Today R19.7 - Diarrhea, unspecified Rast Allergen Today R19.7 - Diarrhea, unspecified Calprotectin, Fecal Today R19.7 - Diarrhea, unspecified EGD/[place] Combo - GI Use Only Today K92.1 - Melena Transglutaminase IgA Today R19.7 - Diarrhea, unspecified Transglutaminase Ab IgG Today R19.7 - Diarrhea, unspecified Medications: New peg 3350-electrolytes 236-22.74-6.74 -5.86 gram (Golytely) until fecal effluent is clear; do not exceed a total volume of 2,000 mL 240 mL PO Q10M 4,000 mL 0RF 1 day Z12.11 - Encounter for screening for malignant neoplasm of colon simethicone after meals 180 mg PO QID 120 caps 3RF 30 days Discontinued peg 3350-electrolytes 236-22.74-6.74 -5.86 gram (Golytely) until fecal effluent is clear; do not exceed a total volume of 2,000 mL Discontinued Reason: Doctor's Order 240 mL PO Q10M 1 day 4,000 mL 0RF Z12.11 - Encounter for screening for malignant neoplasm of colon bisacodyl (Dulcolax (bisacodyl)) Discontinued Reason: Doctor's Order 10 mg (2 x 5 mg) PO BEDTIME 2 days 4 tabs 0RF simethicone after meals Discontinued Reason: Doctor's Order 180 mg PO QID 30 days 120 caps 6RF bisacodyl (Dulcolax (bisacodyl)) take at noon the day before colonoscopy Discontinued Reason: Doctor's Order 20 mg (4 x 5 mg) PO ONCE 1 day 4 tabs 0RF Coding Level of Care Code Est Pt Level 3 (18886) Complex EM visit Add On G2211 Diagnoses Tubular adenoma of colon D12.6 Stage 3a chronic kidney disease N18.31 Chronic kidney disease stage 3 subtype: stage 3a (GFR 45-59) Current use of anticoagulant therapy Z79.01 Melena K92.1 Diarrhea R19.7 Leukocytosis D72.829 Lower extremity edema R60.0 Venous stasis dermatitis I87.2
[2024-09-17 13:02] VITALS: BP 145/85; PULSE 101; BMI 30.8
== END 2024-09-17 14:33 | disposition home or self-care (01) ==
LOC: HO.HGI 12:56
PROVIDERS: PCP Physician Assistant; Visit Provider Nurse Practitioner
DX: D12.6 Benign neoplasm of colon, unspecified (principal); N18.31 Chronic kidney disease, stage 3a; Z79.01 Long term (current) use of anticoagulants; K92.1 Melena; R19.7 Diarrhea, unspecified; D72.829 Elevated white blood cell count, unspecified; R60.0 Localized edema; I87.2 Venous insufficiency (chronic) (peripheral)
CPT/HCPCS: 99213; G2211

== ENCOUNTER 2024-09-17 12:55 | Outpatient (REF) | payer OTHER, SELFPAY ==
[2024-09-20 18:38] LABS: Transglutaminase Ab IgG <1.0 U/mL; Transglutaminase IgA <1.0 U/mL
== END 2024-09-17 12:56 | disposition home or self-care (01) ==
LOC: HO.LAB 12:55
PROVIDERS: PCP Physician Assistant; Visit Provider Nurse Practitioner
DX: R19.7 Diarrhea, unspecified (principal); N18.31 Chronic kidney disease, stage 3a; Z79.01 Long term (current) use of anticoagulants; K92.1 Melena; D72.829 Elevated white blood cell count, unspecified; R60.0 Localized edema; I87.2 Venous insufficiency (chronic) (peripheral)
CPT/HCPCS: 36415; 86003; 86364; 99212

== ENCOUNTER 2024-09-19 11:15 | Outpatient (REF) | payer OTHER, SELFPAY ==
[2024-09-28 21:59] LABS: Calprotectin, Fecal 20 mcg/g
== END 2024-09-19 11:16 | disposition home or self-care (01) ==
LOC: HO.LNP 11:15
PROVIDERS: Visit Provider Nurse Practitioner
DX: R19.7 Diarrhea, unspecified (principal)
CPT/HCPCS: 83993

== ENCOUNTER 2024-09-23 10:55 | Outpatient (AMB) | payer OTHER, SELFPAY ==
--- NOTE | 2024-09-23 11:13 | MHC.OFFVISCO ---
Intake Intake Visit Reasons: Anticoagulation Allergies lisinopril [LISINOPRIL] Allergy (Severe, Verified 09/23/24 11:09) ACUTE KIDNEY INJURY oxycodone [Percocet] Allergy (Intermediate, Verified 09/23/24 11:09) agitation codeine [CODEINE] Allergy (Unknown, Verified 09/23/24 11:09) AGITATION morphine [MORPHINE] Allergy (Unknown, Verified 09/23/24 11:09) AGITATION, confusion From PERCOCET Allergy (Unknown, Uncoded 09/23/24 11:09) AGITATION Medication List - Last Reconciled 09/23/24 by Lisa White RN amlodipine 2.5 mg PO DAILY atorvastatin 80 mg PO QAM cetirizine 5 mg PO DAILY PRN cholecalciferol (vitamin D3) 25 mcg PO DAILY compression socks, large As directed digoxin 125 mcg PO QAM febuxostat (Uloric) 40 mg PO DAILY fluticasone propionate 50 mcg/actuation 1 spray intranasal DAILY 30 days furosemide (Lasix) 20 mg PO DAILY gabapentin 200 mg (2 x 100 mg) PO BEDTIME 30 days meclizine 25 mg PO TID PRN 10 days metoprolol tartrate 100 mg PO BID 90 days peg 3350-electrolytes 236-22.74-6.74 -5.86 gram (Golytely) 240 mL PO Q10M 1 day simethicone (Gas Relief (simethicone)) 125 mg PO ONCE simethicone 180 mg PO QID 30 days warfarin 5 mg See Protocol PO DAILY Nursing Note INR 3.2-? out of therapeutic range of 2-3 Medications and supplements reviewed Patient status: no c.o Medications or supplements: furosemide 20mg daily- no interaction per micromedex Diet: does not eat a lot of greens Denies any signs and symptoms of bleeding or clotting or unusual bruising Bleeding, bruising, clotting discussed Nutritional guidance given: eat greens to lower Dose: 5mg today then 5mg x 6, 7.5mg x 1 F/U INR Date : 2 weeks Patient verbalizing understanding of instructions given. 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
[2024-09-23 11:14] LABS: Prothrombin Time Whole Bld POC 38.2 sec (11.1-13.5); ~PT, ~INR - Anti Coag Clinic 3.2 (0.9-1.1)
== END 2024-09-23 11:25 | disposition home or self-care (01) ==
LOC: HO.ACS 10:55
PROVIDERS: PCP Physician Assistant; Visit Provider Internal Medicine
DX: Z79.01 Long term (current) use of anticoagulants (principal)

== ENCOUNTER 2024-09-23 12:19 | Outpatient (REF) | payer OTHER, SELFPAY ==
[2024-09-23 16:22] LABS: Adenovirus F 40/41 Not Detected (Not Detect.); Astrovirus Not Detected (Not Detect.); Campylobacter Not Detected (Not Detect.); Cryptosporidium Not Detected (Not Detect.); Cyclospora cayetanensis Not Detected (Not Detect.); E. coli EAEC Not Detected (Not Detect.); E. coli EPEC Not Detected (Not Detect.); E. coli ETEC Not Detected (Not Detect.); E. coli STEC Not Detected (Not Detect.); Entamoeba histolytica Not Detected (Not Detect.); Giardia lamblia Not Detected (Not Detect.); Norovirus GI/GII Not Detected (Not Detect.); Plesiomonas shigelloides Not Detected (Not Detect.); Rotavirus A Not Detected (Not Detect.); Salmonella Not Detected (Not Detect.); Sapovirus Not Detected (Not Detect.); Shigella sp./EIEC Not Detected (Not Detect.); Vibrio Not Detected (Not Detect.); Vibrio Cholerae Not Detected (Not Detect.); Yersinia enterocolitica Not Detected (Not Detect.)
== END 2024-09-23 12:20 | disposition home or self-care (01) ==
LOC: HO.LNP 12:19
PROVIDERS: Visit Provider Nurse Practitioner
DX: R19.7 Diarrhea, unspecified (principal); Z79.01 Long term (current) use of anticoagulants
CPT/HCPCS: 85610; 87507; 99211

== ENCOUNTER 2024-09-25 10:59 | Outpatient (AMB) | payer OTHER, SELFPAY ==
--- NOTE | 2024-09-25 11:01 | MHC.PC.OV ---
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 Required: No Accompanied by: Self / Same As Patient Allergies lisinopril [LISINOPRIL] Allergy (Severe, Verified 09/25/24 11:16) ACUTE KIDNEY INJURY oxycodone [Percocet] Allergy (Intermediate, Verified 09/25/24 11:16) agitation codeine [CODEINE] Allergy (Unknown, Verified 09/25/24 11:16) AGITATION morphine [MORPHINE] Allergy (Unknown, Verified 09/25/24 11:16) AGITATION, confusion From PERCOCET Allergy (Unknown, Uncoded 09/25/24 11:16) AGITATION Medication List - Last Reconciled 09/25/24 by Preet An PA-C amlodipine 2.5 mg PO DAILY atorvastatin 80 mg PO QAM cetirizine 5 mg PO DAILY PRN cholecalciferol (vitamin D3) 25 mcg PO DAILY compression socks, large As directed digoxin 125 mcg PO QAM febuxostat (Uloric) 40 mg PO DAILY fluticasone propionate 50 mcg/actuation 1 spray intranasal DAILY 30 days furosemide (Lasix) 20 mg PO DAILY gabapentin 200 mg (2 x 100 mg) PO BEDTIME 30 days meclizine 25 mg PO TID PRN 10 days metoprolol tartrate 100 mg PO BID 90 days peg 3350-electrolytes 236-22.74-6.74 -5.86 gram (Golytely) 240 mL PO Q10M 1 day simethicone (Gas Relief (simethicone)) 125 mg PO ONCE simethicone 180 mg PO QID 30 days warfarin 5 mg See Protocol PO DAILY Tobacco use date assessed: 11/21/23 Fall risk assessment: No Falls in past year Last assessed Fall Risk: 09/25/24 Dental Screening Dental Screen Date: 11/21/23 HPI 3 Month F/U HPI Details Patient is a 74 year male here today for follow-up visit Patient has a past medical history significant for AFib (followed by Cardiology), gout, thoracic aortic aneurysm (followed by vascular) hypertension, CKD stage 3(followed by Nephrology), coronary artery disease. Diarrhea/ dark stools: Has been following gastroenterology here in [place], he has gotten workup including allergy testing which seems to be fairly stable. He had a colonoscopy scheduled though the morning of his procedure he did not feel well and had to cancel. His dark stools seem to resolved. He will like to reschedule his colonoscopy. .. AFib: Continues on warfarin for anticoagulation. Also followed by [place] [facility]. .. CKD stage 3: Has interstitial nephritis confirmed by biopsy. Continues to follow Nephrology. Stable creatinine seems to be from 2.1-2.4. He has been restarted on furosemide due to his lower extremity swelling. Will have his kidney function rechecked next week. .. 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 Does from time to time have pain in his ankles and feet that are short lived. [facility] Medical History Allergies Sinus bradycardia Pre-op examination Annual physical exam History of TIA (transient ischemic attack) Gout Personal history of nicotine dependence Chronic kidney disease, stage 3 unspecified Benign prostatic hyperplasia with lower urinary tract symptoms HTN (hypertension) CAD (coronary artery disease) Paroxysmal atrial fibrillation Surgical History Stented coronary artery Hx of colonoscopy Hx of cardiac cath Hx of cystoscopy History of esophagogastroduodenoscopy (EGD) Hx of cataract extraction Family History Mother CAD (coronary artery disease) Diabetes HTN (hypertension) Father CAD (coronary artery disease) Diabetes HTN (hypertension) Social History Housing: Apartment Alcohol intake: former Patient Tobacco Use Status: Former Tobacco user Years Smoked: 40 +/- e-Cigarette/Vaping Use: Never Used service: No Current occupational status: retired and disabled Cognitive needs: No Hearing needs: No Vision needs: Yes Questionnaire Thrive Questionnaire Date Thrive assessed: 11/21/23 FAUSTINA-7 AMB Questionnaire FAUSTINA-7 Date FAUSTINA - 7 assessed: 11/21/23 Source: Developed by Drs. Jasson L. Alanna Ramos, Wai Tanner and colleagues, with an educational marcell from [employer]. Review of Systems Const Denies headache(s) Eyes Denies loss of vision ENT Denies vertigo, Denies dizziness, Denies headache(s) and Denies sore throat Card Denies chest pain, Denies leg edema and Denies lightheadedness Resp Denies cough, Denies hemoptysis and Denies wheezing GI Denies abdominal pain, Denies melena, Denies constipation, Denies diarrhea and Denies vomiting Denies dysuria, Denies urinary frequency and Denies urinary urgency Musc Denies arthralgias, Denies joint swelling, Denies numbness and Denies tingling Neuro Denies Abnormal speech present, Denies behavioral changes, Denies vertigo, Denies dizziness, Denies headache(s), Denies loss of vision, Denies memory loss, Denies numbness and Denies tingling Psych Denies anxiety, Denies behavioral changes, Denies depression, Denies memory loss and Denies panic attacks Adonis/Lymph Denies easy bleeding and Denies easy bruising Aller/Immun Denies wheezing Physical exam (Primary Care) Vital Signs: Last Vital Signs Pulse 91 09/25/24 11:15 BP 134/60 09/25/24 11:15 Pulse Ox 96 09/25/24 11:15 Oxygen Delivery Method Room Air 09/25/24 11:15 BMI result Body Mass Index 30.5 Tobacco/Smoking Status: Tobacco use Status Tobacco use date assessed 11/21/23 09/25/24 11:02 Patient Tobacco Use Status Former Tobacco user 09/25/24 11:02 e-Cigarette/Vaping Use Never Used 09/25/24 11:02 Thrive Assessment: Date of Thrive Assessment Date Thrive assessed 11/21/23 09/25/24 11:02 Const General: healthy appearing, no acute distress, alert and awake Nutritional Appearance: well nourished Orientation/consciousness: oriented to person, oriented to place and oriented to time HENMT Ears: TM's normal bilaterally General nose exam: Normal nasal mucous membranes and turbinates present Eyes Conjunctivae: conjunctivae normal Sclerae: sclerae normal Pupils: Equal, round and reactive pupils present Neck Neck: Yes no lymphadenopathy and Yes no JVD Thyroid: Thyroid normal Carotids: no bruits Resp Effort & Inspection: normal respiratory effort and not tachypneic Auscultation: no crackles, no rales, no rhonchi and no wheezes Cardio Rate: regular rate Rhythm: regular rhythm Heart sounds: no murmurs and normal S1 and S2 GI Palpation (GI): Soft to palpation, nontender, no hepatomegaly and no splenomegaly Auscultation: normal bowel sounds Skin General skin exam: no rashes or lesions noted and dry skin Neuro General: oriented to person, oriented to place and oriented to time Cranial nerves: Yes Equal, round and reactive pupils present Speech: No Abnormal speech present Gait exam (Neuro): Normal gait present Motor exam (neuro): no tremor noted Extrem Right upper extremity: full ROM Left upper extremity: full ROM Right lower extremity: full ROM; no edema Left lower extremity: full ROM; no edema Psych Mental Status: mental status grossly normal Speech and movement: Normal speech and movement present Affect: normal affect Attitude: cooperative Thought process: Normal thought process present Office Procedures Flu Questionnaire Does the patient have a severe egg allergy?: No Does the patient have severe life threatening allergies?: No Does the patient have a fever or illness today?: No Has the patient ever had Guillain-[place] Syndrome?: No Has the patient ever had any past reaction to a flu shot?: No Immunizations Fluarix Triv [id number] (PF) 45 mcg (15 mcg x 3)/0.5 mL IM syringe Performing Provider: Preet An PA-C Performing [facility] [place] [facility] Administered by: MARIE Santiago on 09/25/24 11:20 Dose Route Admin Location Dispensed Lot Number Expiration Date [facility] Braille Teacher 0.5 mL IM Left Deltoid 0.5 mL [id number] 05/19/25 [id number] [facility] [facility] VIS Given Date VIS Provided VIS Publication Date 09/25/24 Single Vaccine 21 Eligibility Eligibility Date Funding Source Not [facility] Eligible 09/25/24 Private Coding Level of Care Code Est Pt Level 4 (71373) Diagnoses Permanent atrial fibrillation I48.21 Atrial fibrillation type: permanent Stage 3a chronic kidney disease N18.31 Chronic kidney disease stage 3 subtype: stage 3a (GFR 45-59) Primary hypertension I10 Hypertension type: primary hypertension Melena K92.1 Assessment & Plan Assessment & Plan (1) Atrial fibrillation: Code(s): I48.91 - Unspecified atrial fibrillation Category: Medical Qualifiers: Atrial fibrillation type: permanent Qualified Code(s): I48.21 - Permanent atrial fibrillation Plan: Continues to follow cardiology. Continues on warfarin without any overt signs of bleeding with the exception of his melena. (2) Chronic kidney disease, stage 3 unspecified: Code(s): N18.30 - Chronic kidney disease, stage 3 unspecified Category: Medical Qualifiers: Chronic kidney disease stage 3 subtype: stage 3a (GFR 45-59) Qualified Code(s): N18.31 - Chronic kidney disease, stage 3a Plan: Continues to follow Nephrology. Most recent renal function stable. Has been started back furosemide 20 mg for his lower extremity swelling. He will have his kidney functions rechecked early next week. (3) HTN (hypertension): Code(s): I10 - Essential (primary) hypertension Category: Medical Qualifiers: Hypertension type: primary hypertension Qualified Code(s): I10 - Essential (primary) hypertension Plan: Patient's blood pressure acceptable today in office. Will continue him on his current dose of antihypertensive medication (4) Melena: Code(s): K92.1 - Melena Category: Medical Plan: His melena seems to have been resolved lately though still concerned. Stool studies and workup has been negative thus far. He was due for colonoscopy though had to reschedule due to illness. Orders: Orders Influenza [id number] Immunization Today Z23 - Encounter for immunization Medications: Refilled fluticasone propionate 50 mcg/actuation 1 spray intranasal DAILY 30 days 16 grams 1RF T78.40XA - Allergy, unspecified, initial encounter digoxin 125 mcg PO QAM 90 tabs 3RF cholecalciferol (vitamin D3) 25 mcg PO DAILY 90 caps 0RF febuxostat (Uloric) 40 mg PO DAILY 30 tabs 6RF warfarin 5 mg See Protocol PO DAILY 90 tabs 2RF
[2024-09-25 11:15] VITALS: BP 134/60; PULSE 91; O2SAT 96; BMI 30.5
== END 2024-09-25 11:54 | disposition home or self-care (01) ==
LOC: HO.HMCH 10:59
PROVIDERS: PCP Physician Assistant; Visit Provider Physician Assistant
DX: I48.21 Permanent atrial fibrillation (principal); N18.31 Chronic kidney disease, stage 3a; I10 Essential (primary) hypertension; K92.1 Melena; Z23 Encounter for immunization

== ENCOUNTER → 2024-09-25 10:59 | Outpatient (BNVA) | payer OTHER, SELFPAY | PROVIDERS: PCP Physician Assistant; Visit Provider Physician Assistant | DX: Z23 Encounter for immunization (principal); I48.21 Permanent atrial fibrillation; I12.9 Hypertensive chronic kidney disease with stage 1 through stage 4 chronic kidney disease, or unspecified chronic kidney disease; N18.31 Chronic kidney disease, stage 3a; K92.1 Melena | CPT/HCPCS: 90471; 90656; 99212 ==

== ENCOUNTER 2024-10-01 13:15 | Outpatient (REF) | payer OTHER, SELFPAY ==
[2024-10-01 13:28] LABS: MANUAL DIFF FLAG NO
[2024-10-01 14:34] LABS: Basophils Absolute Auto 0.1 X10*3/uL (0.0-0.2); Eosinophils Absolute Auto 0.7 X10*3/uL (0.0-0.4); Eosinophils Percent Auto 7.6 % (0-4); Hematocrit 40.7 % (42.0-52.0); Hemoglobin 12.7 g/dl (14.0-18.0); Imm Gran Abs Auto 0.06 X10*3/uL (0.00-0.03); Imm Gran Pct Auto 0.7 % (0.0-0.4); Lymphocytes Absolute Auto 1.3 X10*3/uL (1.2-4.9); Lymphocytes Percent Auto 13.8 % (20-40); Mean Corpuscular HGB Conc 31.2 g/dl (31.0-36.0); Mean Corpuscular Volume 86.6 fL (80.0-98.0); Mean Platelet Volume 11.1 fL (9.4-12.4); Monocytes Absolute Auto 1.1 X10*3/uL (0.1-1.2); Monocytes Percent Auto 12.2 % (2-11); Neutrophils Absolute Auto 5.9 x10*3/uL (2.0-8.3); Neutrophils Percent Auto 64.7 % (45-73); Platelet Count 206 X10*3/uL (160-400); Red Cell Distribution Width 15.3 % (11.0-16.0); White Blood Count 9.2 X10*3/uL (4.8-10.8)
[2024-10-01 15:48] LABS: Anion Gap 19 (12-20); Blood Urea Nitrogen 65 mg/dL (9-16); Calcium 9.5 mg/dL (8.4-10.2); Carbon Dioxide 22 mmol/L (22-29); Chloride 108 mmol/L (96-108); Estimated Glomerular Filt Rate 13; Glucose Random 131 mg/dL (60-115); Potassium 4.9 mmol/L (3.3-5.1); Sodium 144 mmol/L (135-145); Uric Acid 4.3 mg/dL (3.4-7.0)
== END 2024-10-01 13:16 | disposition home or self-care (01) ==
LOC: HO.LAB 13:15
PROVIDERS: PCP Physician Assistant; Visit Provider Internal Medicine Hypertension Specialist
DX: Z13.89 Encounter for screening for other disorder (principal)
CPT/HCPCS: 36415; 80048; 83970; 84550; 85025

== ENCOUNTER 2024-10-01 17:58 | Inpatient (IN) | payer OTHER, MEDICAID, SELFPAY ==
--- NOTE | 2024-10-01 | ECG_ITS ---
Test Reason : dizzy Blood Pressure : / mmHG Vent. Rate : 072 BPM Atrial Rate : 000 BPM P-R Int : 000 ms QRS Dur : 084 ms QT Int : 350 ms P-R-T Axes : 000 -11 081 degrees QTc Int : 383 ms Atrial fibrillation Nonspecific T wave abnormality Abnormal ECG When compared with ECG of 17-MAR-2022 12:45, Atrial fibrillation has replaced Sinus rhythm Nonspecific T wave abnormality, worse in Inferior leads Nonspecific T wave abnormality now evident in Lateral leads Referred By: Amparo Holbrook Electronically Signed By:Artie Huntley
--- NOTE | ~2024-10-01 | CT_ITS ---
EXAMINATION: CT ABDOMEN AND PELVIS WITHOUT CONTRAST CLINICAL INFORMATION: Acute kidney injury. History of calculi. COMPARISON: Renal ultrasound 10/30/2023. CT abdomen and pelvis 07/18/2012. TECHNIQUE: Multidetector volumetric imaging was performed from the superior aspect of the liver through the pubic symphysis. Sagittal and coronal reformatted images were obtained on the technologist's workstation. This CT examination was performed using dose optimization techniques as appropriate, variously including the following: *Automated exposure control *Adjustment of mA and/or kV according to patient size (this includes techniques or standardized protocols for targeted exams where dose is matched to indication/reason for exam; i.e. extremities or head) *Use of iterative reconstruction technique DLP: 546 mGy-cm FINDINGS: LUNG BASES: 6 partial visualization of at least moderate scattered coronary artery calcific atherosclerosis. LIVER, GALLBLADDER, AND BILIARY TREE: The liver is normal in size, shape, and attenuation. No focal hepatic lesion or biliary ductal dilatation is present. A 2.0 cm NHL calcification is present in the lumen of the gallbladder consistent with the radiodense components of cholelithiasis. PANCREAS: Unremarkable. SPLEEN: Unremarkable. ADRENAL GLANDS: Unremarkable. KIDNEYS AND URETERS: Mild-moderate diffuse bilateral renal atrophy noted. A 1 cm low-density rounded benign-appearing simple cyst which no additional imaging follow-up is noted in association with the inferior pole of the left kidney. No hydronephrosis or perinephric inflammatory changes identified. A 2 mm calculus is present in the interpolar segment of the left kidney. Additional 1 mm punctate calculus is present in the interpolar segment left kidney. An additional 2 mm calculus is present within the left renal pelvis. No right-sided nephrolithiasis identified. No hydronephrosis visualized. No ureterectasis noted. No ureteral calculi noted. BLADDER: Mild distention. GASTROINTESTINAL TRACT: Marked colonic diverticulosis. Normal appendix. No free intraperitoneal fluid or gas collections. No intestinal dilatation or mural thickening noted. Normal appearance of the stomach and duodenum. ABDOMINAL WALL: No significant hernia is appreciated. LYMPH NODES: Normal. VASCULAR: 3.7 cm fusiform aneurysm of the abdominal aorta is present. Bilateral ectasia of the common iliac arteries is present with the common iliac arteries measuring 1.5 cm in diameter. PELVIC VISCERA: Normal appearance of the prostate and seminal vesicles OSSEOUS STRUCTURES: No suspicious skeletal lesions noted. CT/CT abdomen pelvis wo IV con IMPRESSION: Unenhanced CT of the abdomen pelvis: 1. No acute abnormalities identified. 2. Mild-moderate diffuse bilateral renal atrophy. 3. Multiple nonobstructing calculi within the left kidney ranging in size up to 2 mm in maximum diameter.. No right-sided nephrolithiasis. No hydronephrosis or ureterectasis. No ureteral calculi. 4. Cholelithiasis. 5. Marked colonic diverticulosis. No evidence of acute diverticulitis. 6. Abdominal aortic aneurysm. A 3.7 cm fusiform infrarenal abdominal aortic aneurysm is present. Based on published guidelines in J Am Meche Radiol 2013; 10(10):789-794 and J Vasc Surg. 2018; 67:2-77, the recommendation for an abdominal aortic aneurysm with diameter 3.5-3.9 cm is follow-up every 2 years. 7. Partially visualized coronary artery calcific atherosclerosis. Electronically signed by: Zeke Lockhart MD 10/02/2024 01:02 AM BELLO AGUILAR
[2024-10-01 19:21] VITALS: BP 133/83; PULSE 89; RESP 20; TEMP 36.4; O2SAT 97; BMI 31.3
[2024-10-01 19:49] LABS: MANUAL DIFF FLAG NO
[2024-10-01 19:50] LABS: Basophils Absolute Auto 0.1 X10*3/uL (0.0-0.2); Basophils Percent Auto 0.6 % (0-2); Eosinophils Absolute Auto 0.5 X10*3/uL (0.0-0.4); Eosinophils Percent Auto 6.8 % (0-4); Hematocrit 39.1 % (42.0-52.0); Hemoglobin 12.4 g/dl (14.0-18.0); Imm Gran Abs Auto 0.05 X10*3/uL (0.00-0.03); Imm Gran Pct Auto 0.6 % (0.0-0.4); Lymphocytes Absolute Auto 0.9 X10*3/uL (1.2-4.9); Lymphocytes Percent Auto 11.1 % (20-40); Mean Corpuscular HGB Conc 31.7 g/dl (31.0-36.0); Mean Corpuscular Hemoglobin 27.4 pg (27.0-33.0); Mean Corpuscular Volume 86.5 fL (80.0-98.0); Mean Platelet Volume 10.6 fL (9.4-12.4); Monocytes Absolute Auto 0.9 X10*3/uL (0.1-1.2); Monocytes Percent Auto 10.9 % (2-11); Neutrophils Absolute Auto 5.4 x10*3/uL (2.0-8.3); Platelet Count 175 X10*3/uL (160-400); Red Blood Count 4.52 X10*6/uL (4.60-5.80); Red Cell Distribution Width 15.5 % (11.0-16.0); White Blood Count 7.8 X10*3/uL (4.8-10.8)
[2024-10-01 20:22] LABS: Alanine Aminotransferase 26 U/L (0-40); Albumin Level 3.6 g/dL (3.5-5.0); Alkaline Phosphatase 99 U/L (39-117); Anion Gap 15 (12-20); Aspartate Amino Transferase 24 U/L (5-37); Bilirubin Total 0.8 mg/dL (0.0-1.0); Blood Urea Nitrogen 72 mg/dL (9-16); Calcium 8.4 mg/dL (8.4-10.2); Carbon Dioxide 21 mmol/L (22-29); Chloride 110 mmol/L (96-108); Creatinine Clr Calc Pharmacy 14.6; Estimated Glomerular Filt Rate 13; Glucose Random 215 mg/dL (60-115); Potassium 4.8 mmol/L (3.3-5.1); Sodium 141 mmol/L (135-145)
[2024-10-01 21:35] VITALS: BP 157/91; PULSE 73; RESP 18; TEMP 36.6; O2SAT 97
[2024-10-01 22:16] LABS: Appearance Urine Clear; Color Urine Yellow; Glucose Urine UA Negative (Negative); Leukocyte Esterase Urine Negative (Negative); Nitrite Urine Negative (Negative); PH 5.5 (5.0-9.0); Specific Gravity - Urine 1.015 (1.005-1.025); UMIC TRIGGER UACC YES; Urine Blood Small (1+) (Negative); Urine Ketones Negative (Negative); Urine Protein 300 (3+) mg/dL (Neg-Trace)
[2024-10-01 22:22] LABS: Bacteria Urine None Seen (None Seen); Hyaline Casts Urine 0-2 /LPF (0-2); Squamous Epithelial Cell Urine 0-2 /HPF (0-2); WBC Urine 0-5 /HPF (0-5)
[2024-10-01 22:43] LABS: Troponin-I High Sensitivity 2.9 ng/L (<3.5-35.0)
[2024-10-01 23:00] VITALS: BP 152/65; PULSE 78; RESP 16; TEMP 36.7; O2SAT 96
[2024-10-02] VITALS (7 sets, daily range): BP systolic 124–159; BP diastolic 66–106; PULSE 81–96; RESP 18–26; TEMP 36.4–37.1; O2SAT 93–96
--- NOTE | 2024-10-02 00:14 | ED_ITS ---
HPI - General Adult General Chief complaint: Recheck/Abnormal Lab/Rx Stated complaint: Abnormal labs/?Kidney failure sent by pcp Time Seen by Provider: 10/02/24 00:04 Source: patient Mode of arrival: ambulatory Limitations: no limitations and language barrier (Micronesian-speaking spanish medical interpreter utilized) History of Present Illness HPI narrative: Patient is a 74-year-old male who presents emergency department for evaluation. He states that he had routine labs done yesterday by his primary care doctor, who called him today and advised him to come to the emergency department due to his abnormal kidney function. He reports that he overall feels well, he has been experiencing symptoms of his vertigo, including off balance sensation at times when he is walking, he had attributed this to his influenza vaccination that he received 5 days ago. He has not had any falls or near syncopal episodes. When asked, he does admit to having mild diffuse abdominal pain intermittently, reported that he had black stools about 1.5 months ago which has resolved, he did have stool testing done through his primary care doctor which she states was normal. 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 Johnson due to lower extremity edema bilaterally. Related Data Home Medications ?Medication ?Instructions ?Recorded ?Confirmed atorvastatin 80 mg tablet 80 mg PO QAM 12/21/22 10/02/24 Previous Rx's ?Medication ?Instructions ?Recorded compression socks, large #2 ea 06/24/24 meclizine 25 mg tablet 25 mg PO TID PRN dizziness 10 days 06/24/24 #30 tabs metoprolol tartrate 100 mg tablet 100 mg PO BID 90 days #180 tabs 07/04/24 gabapentin 100 mg capsule 200 mg (2 x 100 mg) PO BEDTIME 30 08/20/24 days #60 caps amlodipine 2.5 mg tablet 2.5 mg PO DAILY #90 tabs 09/04/24 furosemide 20 mg tablet (Lasix) 20 mg PO DAILY #30 tabs 09/17/24 simethicone 180 mg capsule 180 mg PO QID 30 days #120 caps 09/17/24 cholecalciferol (vitamin D3) 25 25 mcg PO DAILY #90 caps 09/25/24 mcg (1,000 unit) capsule digoxin 125 mcg (0.125 mg) tablet 125 mcg PO QAM #90 tabs 09/25/24 febuxostat 40 mg tablet (Uloric) 40 mg PO DAILY #30 tabs 09/25/24 fluticasone propionate 50 1 spray intranasal DAILY 30 days 09/25/24 mcg/actuation nasal #16 grams spray,suspension warfarin 5 mg tablet 5 mg PO DAILY #90 tabs 09/25/24 Allergies Allergy/AdvReac Type Severity Reaction Status Date / Time lisinopril [LISINOPRIL] Allergy Severe ACUTE Verified 10/01/24 19:26 KIDNEY INJURY oxycodone [Percocet] Allergy Intermediate agitation Verified 10/01/24 19:26 codeine [CODEINE] Allergy Unknown AGITATION Verified 10/01/24 19:26 morphine [MORPHINE] Allergy Unknown AGITATION, Verified 10/01/24 19:26 confusion From PERCOCET Allergy Unknown AGITATION Uncoded 10/01/24 19:26 Review of Systems 2 Review of Systems: Yes all other systems are reviewed and are negative PMFSH Past Medical History Attestation statement: The following information was validated with the patient. Source: old records reviewed Medical History Allergies Sinus bradycardia Pre-op examination Annual physical exam History of TIA (transient ischemic attack) Gout Personal history of nicotine dependence Chronic kidney disease, stage 3 unspecified Benign prostatic hyperplasia with lower urinary tract symptoms HTN (hypertension) CAD (coronary artery disease) Paroxysmal atrial fibrillation Surgical History Stented coronary artery Hx of colonoscopy Hx of cardiac cath Hx of cystoscopy History of esophagogastroduodenoscopy (EGD) Hx of cataract extraction Family History Family History Mother CAD (coronary artery disease) Diabetes HTN (hypertension) Father CAD (coronary artery disease) Diabetes HTN (hypertension) Social History Social History Housing: Apartment Alcohol intake: former Patient Tobacco Use Status: Former Tobacco user Years Smoked: 40 +/- Smoked in Last 30 Days: No e-Cigarette/Vaping Use: Never Used Use of substances other than those prescribed or required for medical reasons: No Advance Directives: No Advance Directives Information Provided: No Do you have a plan to hurt others: No Plan Nutrition Risks: No Nutritional Risk service: No Current occupational status: retired and disabled Cognitive needs: No Hearing needs: No Vision needs: Yes Physical Exam ED Vital Signs: Vital Signs - 24 hr 10/01/24 19:21 10/01/24 21:35 10/01/24 23:00 Temperature 97.5 F 97.9 F 98.1 F Pulse Rate 89 73 78 Respiratory Rate 20 18 16 Blood Pressure 133/83 157/91 H 152/65 H Pulse Oximetry 97 97 96 Oxygen Delivery Method Room Air Room Air Room Air 10/02/24 00:42 10/02/24 00:42 10/02/24 00:43 Temperature Pulse Rate 84 85 81 Respiratory Rate Blood Pressure 159/66 H 140/75 H 132/73 Pulse Oximetry Oxygen Delivery Method BMI result Body Mass Index 31.3 Appearance: Alert.?Oriented to person, place and time. No acute distress.?Normal affect. Eyes: Pupils equal, round and reactive to light.? ENT: Pharynx normal.?? Neck: Normal inspection.? Neck supple.?? CVS: Heart sounds normal. Normal heart rate and rhythm.? Pulses normal.?? Respiratory: No respiratory distress.? Lung sounds clear to auscultation bilaterally?? Abdomen: Soft and non-tender. Normoactive bowel sounds. No pulsatile mass.?? Skin: Skin warm and dry.? Normal skin color.? Normal skin turgor.?? Extremities: 1+ pitting bilateral extremity edema.? No calf ttp? Neuro: Moves all extremities spontaneously. Sensation intact bilaterally. No focal neuro deficits. Ambulates with normal steady gait. Course Reevaluation(s) Reevaluation #1: CT of the abdomen and pelvis reveals no acute abnormalities, has diffuse bilateral renal atrophy nonobstructing calculi within the left kidney without hydronephrosis or evidence of ureteral calculi, and a fusiform infrarenal abdominal aortic aneurysm measuring 3.7 cm. Patient admitted to medicine service for GONZALO on CKD, spoke with hospitalist Dr. Crawford Medications Administered Generic Name Dose Route Start Last Admin Trade Name Freq PRN Reason Stop Dose Admin Sodium Chloride 1,000 mls @ 999 mls/hr 10/02/24 01:15 10/02/24 01:30 Ns IV 10/02/24 02:15 999 mls/hr .Q1H1M MATTHEW Administration Medical Decision Making Medical Decision Making [facility] Narrative: Patient is a 74 year old male with past medical history of TIA, gout, CKD, CAD, paroxysmal atrial fibrillation on warfarin, hypertension, BPH, thoracic aortic aneurysm presenting to emergency department for evaluation of GONZALO on CKD found incidentally on outpatient labs as per HPI. Overall he is well-appearing, nontoxic, afebrile. He has a admitted to recent ?vertigo? with a slight off balance feeling but no near-syncope or associated falls. He has been ambulatory in the emergency department without any episodes of dizziness. He endorsed vague abdominal pain diffusely throughout, no significant pain at this time and his abdominal examination is benign her urinalysis microscopic hematuria, pending on obtaining CT of the abdomen and pelvis to exclude obstructive uropathy. I suspect that his GONZALO on CKD, with BUN of 72 creatinine 4.58 GFR 13 compared to his baseline most recently 50/2.94/21 respectively in June 12, is secondary to the recent introduction of furosemide. Has not had any gastrointestinal illness to suggest other cause for hypovolemia, he is normotensive, without chest pain or shortness of breath, lower suspicion for ACS, urinalysis without evidence of infection, no recent ill like symptoms to suggest sepsis as an etiology for this. Differential Diagnosis Differential Diagnoses: The differential diagnosis associated with the presentation includes (See narrative above) Admission/Observation Consideration of admission/observation: Escalation of care including admission/observation considered Lab Data MDM Lab Attestation statement: I reviewed the patient's lab results. CBC is without leukocytosis, has a mild normocytic anemia that does not meet transfusion criteria, no thrombosed cytopenia. No significant electrolyte derangement. GONZALO as noted above. LFTs within normal range. High sensitive troponin negative. Urinalysis with microscopic hematuria, no evidence of infection. 10/01/24 19:45 10/01/24 19:45 Labs: Lab Results 10/01/24 10/01/24 Range/Units 19:45 22:07 WBC 7.8 (4.8-10.8) X10*3/uL RBC 4.52 L (4.60-5.80) X10*6/uL Hgb 12.4 L (14.0-18.0) g/dl Hct 39.1 L (42.0-52.0) % MCV 86.5 (80.0-98.0) fL MCH 27.4 (27.0-33.0) pg MCHC 31.7 (31.0-36.0) g/dl RDW 15.5 (11.0-16.0) % Plt Count 175 (160-400) X10*3/uL MPV 10.6 (9.4-12.4) fL Immature Gran % (Auto) 0.6 H (0.0-0.4) % Neut % (Auto) 70.0 (45-73) % Lymph % (Auto) 11.1 L (20-40) % [place] % (Auto) 10.9 (2-11) % Eos % (Auto) 6.8 H (0-4) % Baso % (Auto) 0.6 (0-2) % Lymph # (Auto) 0.9 L (1.2-4.9) X10*3/uL [place] # (Auto) 0.9 (0.1-1.2) X10*3/uL Eos # (Auto) 0.5 H (0.0-0.4) X10*3/uL Baso # (Auto) 0.1 (0.0-0.2) X10*3/uL Abs Immat Gran (auto) 0.05 H (0.00-0.03) X10*3/uL Absolute Neuts (auto) 5.4 (2.0-8.3) x10*3/uL Absolute Nucleated RBC 0.000 (0.0-0.012) X10*3/uL Nucleated RBC % (auto) 0.0 (0.0-0.2) /100WBC Sodium 141 (135-145) mmol/L Potassium 4.8 (3.3-5.1) mmol/L Chloride 110 H (96-108) mmol/L Carbon Dioxide 21 L (22-29) mmol/L Anion Gap 15 (12-20) BUN 72 H (9-16) mg/dL Creatinine 4.58 H* (0.5-1.4) mg/dL Estim Creat Clear Calc 14.6 Estimated GFR 13 Random Glucose 215 H (60-115) mg/dL Calcium 8.4 D (8.4-10.2) mg/dL Total Bilirubin 0.8 (0.0-1.0) mg/dL AST 24 (5-37) U/L ALT 26 (0-40) U/L Alkaline Phosphatase 99 (39-117) U/L Troponin I High Sens 2.9 (<3.5-35.0) ng/L Total Protein 7.0 (6.5-8.0) g/dL Albumin 3.6 (3.5-5.0) g/dL Urine Color Yellow Urine Appearance Clear Urine pH 5.5 (5.0-9.0) Ur Specific [place] 1.015 (1.005-1.025) Urine Protein 300 (3+) H (Neg-Trace) mg/dL Urine Glucose (UA) Negative (Negative) mg/dL Urine Ketones Negative (Negative) mg/dL Urine Blood Small (1+) H (Negative) Urine Nitrite Negative (Negative) Ur Leukocyte Esterase Negative (Negative) Urine RBC 11-20 H (0-2) /HPF Urine WBC 0-5 (0-5) /HPF Ur Squamous Epith Cells 0-2 (0-2) /HPF Urine Bacteria None Seen (None Seen) Hyaline Casts 0-2 (0-2) /LPF Independent Interpretation I performed an independent interpretation of an: EKG Interpretation: EKG reveals atrial fibrillation, rate controlled with ventricular rate of 72, QTC 383, no ST elevation, no ST depression Radiology Impression Discussion of test interpretation with radiology: I have reviewed the radiologist's reading. Radiologist Impression: CT/CT abdomen pelvis wo IV con IMPRESSION: Unenhanced CT of the abdomen pelvis: 1. No acute abnormalities identified. 2. Mild-moderate diffuse bilateral renal atrophy. 3. Multiple nonobstructing calculi within the left kidney ranging in size up to 2 mm in maximum diameter.. No right-sided nephrolithiasis. No hydronephrosis or ureterectasis. No ureteral calculi. 4. Cholelithiasis. 5. Marked colonic diverticulosis. No evidence of acute diverticulitis. 6. Abdominal aortic aneurysm. A 3.7 cm fusiform infrarenal abdominal aortic aneurysm is present. Based on published guidelines in J Am Meche Radiol 2013; 10(10):789-794 and J Vasc Surg. 2018; 67:2-77, the recommendation for an abdominal aortic aneurysm with diameter 3.5-3.9 cm is follow-up every 2 years. 7. Partially visualized coronary artery calcific atherosclerosis. Independent Historian Clinical information obtained from an independent historian. History obtained from or confirmed by: Other (Son) External Record Review External record reviewed: Outpatient record Chronic Conditions Patient?s care impacted by: Other (See narrative above) Discharge Plan Discharge Clinical Impression: Acute kidney injury superimposed on CKD Patient Disposition: Admitted As Inpatient
--- NOTE | 2024-10-02 01:12 | PC.NURSE ---
orthostatics relayed to Herbert CEVALLOS. pt was asymptomatic during vitals. ambulates with steady gait to bathroom and back to stretcher.
--- NOTE | 2024-10-02 01:18 | P.HPHOSP_ITS ---
History of Present Illness Date of Service: 10/02/24 Chief Complaint: Abnormal labs This is a 74-year-old male with pertinent history of atrial fibrillation on Coumadin, mixed hyperlipidemia, CKD stage 3, hypertension, coronary artery disease who was sent to the emergency department by his PCP for evaluation of abnormal labs. Patient states he got blood work today and he was told to go to the ER as his kidney function was elevated. Patient was initiated on furosemide 2 weeks ago by his facilities specialist for lower extremity edema. He denies any complaints at the time of my evaluation. No shortness of breath. No vomiting or diarrhea. Admits adequate p.o. intake. Has been compliant with his medications. Previously had black-colored stool about a month and a half ago which has resolved. Had stool testing done at PCP's office which was okay. No fever, chills, chest pain, palpitations, shortness of breath, abdominal pain, changes in urinary or bowel habits. History obtained with the help of clean up helper banquet In the emergency department, creatinine found to be 4.58 and patient was resuscitated with IV crystalloids. Review of Systems 2 Constitutional: Constitutional: Reports no additional constitutional complaints Cardiovascular: Cardiovascular: Reports no additional cardiovascular complaints Respiratory: Respiratory: Reports no additional respiratory complaints Gastrointestinal: Gastrointestinal: Reports no additional gastrointestinal complaints Genitourinary: Genitourinary: Reports no additional male genitourinary complaints [facility] Medical History Allergies Sinus bradycardia Pre-op examination Annual physical exam History of TIA (transient ischemic attack) Gout Personal history of nicotine dependence Chronic kidney disease, stage 3 unspecified Benign prostatic hyperplasia with lower urinary tract symptoms HTN (hypertension) CAD (coronary artery disease) Paroxysmal atrial fibrillation Family History Mother CAD (coronary artery disease) Diabetes HTN (hypertension) Father CAD (coronary artery disease) Diabetes HTN (hypertension) Surgical History Stented coronary artery Hx of colonoscopy Hx of cardiac cath Hx of cystoscopy History of esophagogastroduodenoscopy (EGD) Hx of cataract extraction Social History Housing: Apartment Alcohol intake: former Patient Tobacco Use Status: Former Tobacco user Years Smoked: 40 +/- e-Cigarette/Vaping Use: Never Used service: No Current occupational status: retired and disabled Cognitive needs: No Hearing needs: No Vision needs: Yes Meds Allergies Allergy/AdvReac Type Severity Reaction Status Date / Time lisinopril [LISINOPRIL] Allergy Severe ACUTE Verified 10/01/24 19:26 KIDNEY INJURY oxycodone [Percocet] Allergy Intermediate agitation Verified 10/01/24 19:26 codeine [CODEINE] Allergy Unknown AGITATION Verified 10/01/24 19:26 morphine [MORPHINE] Allergy Unknown AGITATION, Verified 10/01/24 19:26 confusion From PERCOCET Allergy Unknown AGITATION Uncoded 10/01/24 19:26 Active Medications: Current Medications Sodium Chloride (Ns) 1,000 mls @ 999 mls/hr IV .Q1H1M MATTHEW Stop: 10/02/24 02:15 Home Medications ?Medication ?Instructions ?Recorded ?Confirmed ?Last Taken ?Type atorvastatin 80 mg tablet 80 mg PO QAM 12/21/22 09/25/24 Unknown History Physical Exam 2 Vital Signs and Narrative: Vital Signs: Last Vital Signs Temp 98.1 F 10/01/24 23:00 Pulse 81 10/02/24 00:43 Resp 16 10/01/24 23:00 BP 132/73 10/02/24 00:43 Pulse Ox 96 10/01/24 23:00 O2 Del Method Room Air 10/01/24 23:00 BMI result Body Mass Index 31.3 Middle-aged male lying in bed in no distress Neck supple, no JVD Regular rate and rhythm, S1-S2 heard Regular breath sounds bilaterally, no wheezing or crackles appreciated Abdomen soft nontender, no guarding, no rigidity Patient is awake, alert and oriented to self, place, time and person ; no focal motor deficit Psych: Normal mood No pedal edema Results Labs 10/01/24 19:45 10/01/24 19:45 Labs: Laboratory Results - last 24 hr 10/01/24 10/01/24 19:45 22:07 MCV 86.5 MCH 27.4 MCHC 31.7 RDW 15.5 Plt Count 175 MPV 10.6 Immature Gran % (Auto) 0.6 H Neut % (Auto) 70.0 Lymph % (Auto) 11.1 L [place] % (Auto) 10.9 Eos % (Auto) 6.8 H Baso % (Auto) 0.6 Lymph # (Auto) 0.9 L [place] # (Auto) 0.9 Eos # (Auto) 0.5 H Baso # (Auto) 0.1 Abs Immat Gran (auto) 0.05 H Absolute Neuts (auto) 5.4 Absolute Nucleated RBC 0.000 Nucleated RBC % (auto) 0.0 Anion Gap 15 Estim Creat Clear Calc 14.6 Estimated GFR 13 Random Glucose 215 H Calcium 8.4 D Total Bilirubin 0.8 AST 24 ALT 26 Alkaline Phosphatase 99 Troponin I High Sens 2.9 Total Protein 7.0 Albumin 3.6 Urine Color Yellow Urine Appearance Clear Urine pH 5.5 Ur Specific [place] 1.015 Urine Protein 300 (3+) H Urine Glucose (UA) Negative Urine Ketones Negative Urine Blood Small (1+) H Urine Nitrite Negative Ur Leukocyte Esterase Negative Urine RBC 11-20 H Urine WBC 0-5 Ur Squamous Epith Cells 0-2 Urine Bacteria None Seen Hyaline Casts 0-2 Imaging Radiologist's Impressions: Impressions Abdomen/Pelvis CT 10/02/24 00:10 IMPRESSION: Unenhanced CT of the abdomen pelvis: 1. No acute abnormalities identified. 2. Mild-moderate diffuse bilateral renal atrophy. 3. Multiple nonobstructing calculi within the left kidney ranging in size up to 2 mm in maximum diameter.. No right-sided nephrolithiasis. No hydronephrosis or ureterectasis. No ureteral calculi. 4. Cholelithiasis. 5. Marked colonic diverticulosis. No evidence of acute diverticulitis. 6. Abdominal aortic aneurysm. A 3.7 cm fusiform infrarenal abdominal aortic aneurysm is present. Based on published guidelines in J Am Meche Radiol 2013; 10(10):789-794 and J Vasc Surg. 2018; 67:2-77, the recommendation for an abdominal aortic aneurysm with diameter 3.5-3.9 cm is follow-up every 2 years. 7. Partially visualized coronary artery calcific atherosclerosis. Electronically signed by: Zeke Lockhart MD 10/02/2024 01:02 AM [facility] Assessment and Plan (1) Acute kidney injury: Status: Acute Plan This is a 74-year-old male with pertinent history of atrial fibrillation on Coumadin, mixed hyperlipidemia, CKD stage 3, hypertension, coronary artery disease who was sent to the emergency department by his PCP for evaluation of abnormal labs. #. GONZALO on CKD stage 3: Resuscitating with IV crystalloids. Closely monitor creatinine and urine output. Avoid nephrotoxins. Will hold Lasix #. Hypertension: Continue home antihypertensives #. Dyslipidemia: On statin #. Atrial fibrillation: On digoxin and Coumadin Med rec pending DVT prophylaxis: Coumadin Full code Admit as inpatient and will require two night minimum hospital stay for close monitoring of kidney function (as above), which is not possible in a lesser acute setting. Quality Stroke Does the patient have a stroke diagnosis?: No VTE Prior VTE?: No VTE Risk Level:: Medical - moderate - high VTE Device Contraindication: Treatment Not Indicated VTE Drug Contraindication: N/A - Med Ordered
[2024-10-02] MEDS: 0.9 % Sodium Chloride 1,000 ML 999 ML IV (01:30)
--- NOTE | 2024-10-02 02:02 | PC.NURSE ---
med list completed with pt aware.
[2024-10-02 06:18] LABS: MANUAL DIFF FLAG NO
[2024-10-02 06:28] LABS: Basophils Absolute Auto 0.1 X10*3/uL (0.0-0.2); Basophils Percent Auto 0.6 % (0-2); Eosinophils Absolute Auto 0.6 X10*3/uL (0.0-0.4); Hematocrit 37.9 % (42.0-52.0); Imm Gran Abs Auto 0.05 X10*3/uL (0.00-0.03); Imm Gran Pct Auto 0.6 % (0.0-0.4); Lymphocytes Absolute Auto 1.2 X10*3/uL (1.2-4.9); Lymphocytes Percent Auto 13.7 % (20-40); Mean Corpuscular HGB Conc 31.7 g/dl (31.0-36.0); Mean Corpuscular Hemoglobin 27.3 pg (27.0-33.0); Mean Corpuscular Volume 86.1 fL (80.0-98.0); Mean Platelet Volume 10.6 fL (9.4-12.4); Monocytes Absolute Auto 1.1 X10*3/uL (0.1-1.2); Neutrophils Absolute Auto 5.7 x10*3/uL (2.0-8.3); Neutrophils Percent Auto 65.1 % (45-73); Platelet Count 183 X10*3/uL (160-400); Red Cell Distribution Width 15.4 % (11.0-16.0); White Blood Count 8.8 X10*3/uL (4.8-10.8)
[2024-10-02 06:39] LABS: Anion Gap 15 (12-20); Blood Urea Nitrogen 65 mg/dL (9-16); Calcium 8.9 mg/dL (8.4-10.2); Carbon Dioxide 20 mmol/L (22-29); Chloride 113 mmol/L (96-108); Creatinine Clr Calc Pharmacy 14.6; Estimated Glomerular Filt Rate 13; Glucose Random 107 mg/dL (60-115); Potassium 5.5 mmol/L (3.3-5.1); Sodium 142 mmol/L (135-145)
[2024-10-02] MEDS: 0.9 % Sodium Chloride Flush 3 ML SYRINGE IVFLUSH ×2 (08:57→14:07)
--- NOTE | 2024-10-02 09:15 | PM.CNNEP ---
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 Sees Dr Garcia, Nephrology, outpatient. pt advised to go to hospital by PCP due to abnormal renal function on outpatient labs on 09/30 of note, had started lasix 20mg PO daily 2 weeks ago for BLE edema Nephrology consulted for GONZALO, lasix held last creatinine on file 2.94 on 06/05, on admission 10/01 creatinine 4.38 10/02 creatinine 4.61 BUn 65, GFR 14 potassium 5.5 serum CO2 20 H&H 12 and 37.9 (prior to admit on 09/12 H&H was 15 and 49), platelets are normal Urine 10/01: dip with large protein, microscopy shows 11-20 RBCs, no WBCs previous urine prot/creatinine ratio Jun [address] abd/pelvis 10/02: diffuse bilateral renal atrophy. benign 1cm cyst left kidney. No hydronephrosis or inflammatory changes. 2mm and 2mm calculi of left kidney; 2mm calculus in left renal pelvis. No right sided calculi. No ereteractasis, no ureteral calculi noted. of note, pt takes digoxin outpatient denies use of NSAIDs over last two weeks, though says he does use on occasion no alcohol, cigarette or drug use denies other new medications recently outside of lasix states he is urinating comfortably - denies flank pain, dysuria, difficulty emptying bladder states he was drinking plenty of water prior to admission, though sometimes does not drink enough he denies chest pain, shortness of breath, dizziness he denies abdominal pain, nausea, diarrhea- states intermittently struggles with constipation states lower extremity swelling for about 1.5 months now, which is why lasix was started denies other questions, concerns Review of Systems Constitutional: Denies fatigue, Denies headache(s) and Denies malaise Denies dizziness and Denies headache(s) Cardiovascular: Denies chest pain, Reports leg edema, Denies lightheadedness and Denies dyspnea Respiratory: Denies cough and Denies dyspnea Gastrointestinal: Denies abdominal pain, Reports constipation, Denies diarrhea, Denies nausea and Denies vomiting Musculoskeletal: Denies arthralgias and Denies muscle cramps Skin/Breast: Denies rash Denies dizziness and Denies headache(s) Endocrine: Denies fatigue PMFSH Past Medical History Medical History Allergies Sinus bradycardia Pre-op examination Annual physical exam History of TIA (transient ischemic attack) Gout Personal history of nicotine dependence Chronic kidney disease, stage 3 unspecified Benign prostatic hyperplasia with lower urinary tract symptoms HTN (hypertension) CAD (coronary artery disease) Paroxysmal atrial fibrillation Family History Family History Mother CAD (coronary artery disease) Diabetes HTN (hypertension) Father CAD (coronary artery disease) Diabetes HTN (hypertension) Surgical History Surgical History Stented coronary artery Hx of colonoscopy Hx of cardiac cath Hx of cystoscopy History of esophagogastroduodenoscopy (EGD) Hx of cataract extraction Social History Social History Housing: Apartment Alcohol intake: former Patient Tobacco Use Status: Former Tobacco user Years Smoked: 40 +/- Smoked in Last 30 Days: No e-Cigarette/Vaping Use: Never Used Use of substances other than those prescribed or required for medical reasons: No Advance Directives: No Advance Directives Information Provided: No Do you have a plan to hurt others: No Plan Nutrition Risks: No Nutritional Risk service: No Current occupational status: retired and disabled Cognitive needs: No Hearing needs: No Vision needs: Yes Meds Allergies Allergy/AdvReac Type Severity Reaction Status Date / Time lisinopril [LISINOPRIL] Allergy Severe ACUTE Verified 10/01/24 19:26 KIDNEY INJURY oxycodone [Percocet] Allergy Intermediate agitation Verified 10/01/24 19:26 codeine [CODEINE] Allergy Unknown AGITATION Verified 10/01/24 19:26 morphine [MORPHINE] Allergy Unknown AGITATION, Verified 10/01/24 19:26 confusion From PERCOCET Allergy Unknown AGITATION Uncoded 10/01/24 19:26 Active Medications: Current Medications Acetaminophen (Acetaminophen 325 Mg Tablet) 650 mg PO Q6H PRN PRN Reason: Pain, Mild (Pain Scale 1-3), fever or headache Atorvastatin Calcium (Atorvastatin Calcium 80 Mg Tablet) 80 mg PO DAILY MATTHEW Calcium Carbonate (Calcium Carbonate 750 Mg Tab.Chew) 750 mg PO Q4H PRN PRN Reason: Heartburn Fluticasone Propionate (Fluticasone Propionate Nasal 16 Gm [place]) 1 spray NOSTRIL-B DAILY MATTHEW Gabapentin (Gabapentin 100 Mg Capsule) 200 mg PO BEDTIME MATTHEW Magnesium Hydroxide (Milk Of Magnesia 30 Ml Oral.Susp) 30 ml PO DAILY PRN PRN Reason: Constipation Melatonin (Melatonin 3 Mg Tablet) 6 mg PO BEDTIME PRN PRN Reason: Insomnia Ondansetron HCl (Ondansetron Hcl 4 Mg/2 Ml Vial) 4 mg IVPUSH Q8H PRN PRN Reason: Nausea and Vomiting Sodium Chloride (0.9 % Sodium Chloride Flush 3 Ml Syringe) 3 ml IVFLUSH QSHIFT [facility] Last Admin: 10/02/24 08:57 Dose: 3 ml Home Medications ?Medication ?Instructions ?Recorded ?Confirmed ?Last Taken ?Type atorvastatin 80 mg tablet 80 mg PO QAM 12/21/22 10/02/24 10/01/24 09:00 History warfarin 5 mg tablet 5 mg PO SUTUWETHFRSA 10/02/24 10/02/24 10/01/24 09:00 History warfarin 5 mg tablet 7.5 mg PO MO 10/02/24 10/02/24 09/30/24 History Physical Exam Vital Signs: Last Vital Signs Temp 97.7 F 10/02/24 08:42 Pulse 94 10/02/24 08:42 Resp 26 H 10/02/24 08:42 BP 155/86 H 10/02/24 08:42 Pulse Ox 94 10/02/24 08:42 O2 Del Method Room Air 10/02/24 08:42 BMI result Body Mass Index 31.3 Const General: no acute distress, alert and awake Resp Effort & Inspection: normal respiratory effort and able to speak in complete sentences Auscultation: clear to auscultation bilaterally Cardio Jugular venous distension: no JVD Rate: regular rate Rhythm: regular rhythm Heart sounds: S1 normal heart sound present and S2 normal heart sound present GI Palpation (GI): Soft to palpation and nontender General: Yes no CVA tenderness Back/Spine/Pelvis Back: no CVA tenderness Extrem General: Yes edema (+1 BLE pitting edema) Results Lab Results 10/02/24 06:08 10/02/24 06:08 Lab results: Chemistry 10/01/24 10/02/24 19:45 06:08 Sodium 141 142 Potassium 4.8 5.5 H Carbon Dioxide 21 L 20 L BUN 72 H 65 H Creatinine 4.58 H* 4.61 H* Calcium 8.4 D 8.9 Hematology 10/01/24 10/02/24 19:45 06:08 WBC 7.8 8.8 Hgb 12.4 L 12.0 L Plt Count 175 183 Urinalysis 10/01/24 22:07 Urine Color Yellow Urine Appearance Clear Urine pH 5.5 Ur Specific [place] 1.015 Urine Protein 300 (3+) H Urine Glucose (UA) Negative Urine Ketones Negative Urine Blood Small (1+) H Urine Nitrite Negative Ur Leukocyte Esterase Negative Urine RBC 11-20 H Urine WBC 0-5 Ur Squamous Epith Cells 0-2 Hyaline Casts 0-2 Assessment and Plan (1) Acute kidney injury superimposed on CKD: Status: Acute (2) Chronic kidney disease, stage 3 unspecified: Qualifiers: Chronic kidney disease stage 3 subtype: stage 3a (GFR 45-59) Qualified Code(s): N18.31 - Chronic kidney disease, stage 3a Status: Acute (3) HTN (hypertension): Qualifiers: Hypertension type: primary hypertension Qualified Code(s): I10 - Essential (primary) hypertension Status: Acute (4) Anemia: Qualifiers: Anemia type: unspecified type Qualified Code(s): D64.9 - Anemia, unspecified Status: Acute (5) Hematuria: Qualifiers: Hematuria type: asymptomatic microscopic Qualified Code(s): R31.21 - Asymptomatic microscopic hematuria Status: Acute (6) Proteinuria: Qualifiers: Proteinuria type: persistent Qualified Code(s): R80.1 - Persistent proteinuria, unspecified Status: Acute Plan GONZALO on CKD3; GONZALO most likely secondary to tubular injury in the setting of diuretic use with hypoalbuminemia New, worsening most likely progressive CKD with some component of GONZALO GFR of ~25 at baseline, 6gm urine protein/24 hr at baseline, nephrotic-range proteinuria and hematuria with diffuse bialteral renal atrophy on imaging will check serum and urine immunofixation, updated urine protein/creatinine ratio IV diuretic x1 helping his volume status, may drop his GFR more or not recommend close I&O monitoring, blood pressures recommend daily electrolyte and renal function monitoring Continue supportive care avoid nephrotoxic substances Will continue to follow Discussed with Dr Perez Procedures Date of Service Date of Service: 10/02/24
--- NOTE | 2024-10-02 09:22 | PHA.MEDREC ---
Addendum entered by Ranjit Foote RPh 10/02/24 09:30: Reviewed by [facility] Original Note: Pharmacy Consult ? Medication Reconciliation Pharmacy has reviewed the medication reconciliation don by nursing. Spoke to patient through customer assistance representative service (Jaqui) to confirm med list. patient had a medbox list with him. Patient confirmed warfarin 7.5 mg on Mondays and 5 mg other days.
--- NOTE | 2024-10-02 13:30 | PM.EVENT ---
Event Note Date of Service: 10/02/24 Event Note: 76-year-old with history of atrial fibrillation on Coumadin, hyperlipidemia, chronic kidney disease stage 3, hypertension, coronary artery disease seen by PCP due to worsening creatinine patient recently started on furosemide 2 weeks ago due to lower extremity edema by Nephrology, patient denies symptoms of shortness of breath, no nausea no vomiting or diarrhea. On examination awake alert Lungs clear to auscultation Extremities pitting edema 74-year-old male with pertinent history of atrial fibrillation on Coumadin, mixed hyperlipidemia, CKD stage 3, hypertension, coronary artery disease who was sent to the emergency department by his PCP for evaluation of abnormal labs. #. GONZALO on CKD stage 3: Creatinine bumped from 2.94 in 06/[address] abd/pelvis 10/02: diffuse bilateral renal atrophy. benign 1cm cyst left kidney. No hydronephrosis or inflammatory changes. 2mm and 2mm calculi of left kidney; 2mm calculus in left renal pelvis. No right sided calculi. no ureteral calculi noted. Hold Lasix Avoid nephrotoxins and hypotension Nephrology consult # acute hyperkalemia likely due to GONZALO will give Lokelma #. Hypertension: Stable blood pressure, hold amlodipine #. Dyslipidemia: Resume Lipitor 80 mg #. Atrial fibrillation: On digoxin, metoprolol 100 mg b.i.d. and Coumadin, will hold digoxin due to GONZALO, check PT INR, resume metoprolol 50 mg b.i.d.,( home dose 100 mg b.i.d.) # neuropathy resume gabapentin 200 mg at bedtime DVT prophylaxis: Follow PT INR and resume Coumadin/place on compression boots Full code will require continued inpatient hospital stay for close monitoring of kidney function (as above), which is not possible in a lesser acute setting. Time Spent With Patient Time: Total time managing care of this patient today ____ minutes.
[2024-10-02 14:04] LABS: INTERNATIONAL NORM RATIO 2.4 (0.9-1.1); Prothrombin Time 27.6 SEC (10.9-12.4)
[2024-10-02] MEDS: Sodium Zirconium Cyclosilicate 5 GM POWD.PACK PO (14:04)
[2024-10-02] MEDS: Furosemide 40 MG/4 ML VIAL IVPUSH (14:05)
[2024-10-02 14:16] LABS: Creatinine Urine 56.08 mg/dL
[2024-10-02 14:27] LABS: Total Protein Urine Random 310 mg/dL (<12)
--- NOTE | 2024-10-02 14:50 | MHC.CM.PN ---
PT LIVES ALONE IS INDEPENDENT HAD NO SERVICES HAS OWN TRANSPORTATION HOME
--- NOTE | 2024-10-02 19:07 | PC.NURSE ---
Patient alert and oriented x 3. Pleasant Greenlandic speaking man. Patient voiding in urinal. Patient denies any pain. Patients coumadin on hold for now. tele: afib controlled. iv 20g right forearm. Patient has a bed will send report. Will continue with plan of care.
--- NOTE | 2024-10-02 19:17 | PC.NURSE ---
This RN assumed pt care @ 1900. Pt denies pain at this time. Pt a&ox3, no signs of distress. Pt sitting up in bed eating dinner. Plan of care ongoing.
[2024-10-02] MEDS: Metoprolol Tartrate 50 MG TABLET PO (20:53)
[2024-10-02] MEDS: Gabapentin 100 MG CAPSULE 200 MG PO (20:53)
[2024-10-03] MEDS: 0.9 % Sodium Chloride Flush 3 ML SYRINGE IVFLUSH ×4 (00:06→21:36)
[2024-10-03 03:33] VITALS: BP 138/81; PULSE 85; RESP 18; TEMP 36.9; O2SAT 96
[2024-10-03 07:41] LABS: INTERNATIONAL NORM RATIO 2.2 (0.9-1.1); Prothrombin Time 25.3 SEC (10.9-12.4)
[2024-10-03 07:44] VITALS: BP 130/78; PULSE 88; RESP 16; TEMP 37.3; O2SAT 94
[2024-10-03 07:53] LABS: Anion Gap 17 (12-20); Blood Urea Nitrogen 73 mg/dL (9-16); Calcium 9.1 mg/dL (8.4-10.2); Carbon Dioxide 23 mmol/L (22-29); Chloride 109 mmol/L (96-108); Creatinine Clr Calc Pharmacy 15.2; Estimated Glomerular Filt Rate 13; Glucose Random 83 mg/dL (60-115); Potassium 4.8 mmol/L (3.3-5.1); Sodium 144 mmol/L (135-145)
--- NOTE | 2024-10-03 08:40 | P.PNNP_ITS ---
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 Sees Dr Garcia, Nephrology, outpatient. pt advised to go to hospital by PCP due to abnormal renal function on outpatient labs on 09/30 Nephrology consulted for GONZALO, lasix held last creatinine on file 2.94 on 06/05, on admission 10/01 creatinine 4.38 10/02 creatinine 4.61 recieved 40mg IVP lasix today 10/03 creatinine slightly improved to 4.41 patient reports frequent urination since diuretic administration he reports feeling well denies shortness of breath, dysuria/difficulty emptying bladder denies other concerns/new symptoms Urine 10/01: dip with large protein, microscopy shows 11-20 RBCs, no WBCs previous urine prot/creatinine ratio Jun 2023 was 6.3 10/02 urine protein/creatinine ratio 5.5 CT abd/pelvis 10/02: diffuse bilateral renal atrophy. benign 1cm cyst left kidney. No hydronephrosis or inflammatory changes. 2mm and 2mm calculi of left kidney; 2mm calculus in left renal pelvis. No right sided calculi. No ereteractasis, no ureteral calculi noted. Physical Exam 2 Vital Signs: Vital Signs: Last Vital Signs Temp 99.1 F 10/03/24 07:44 Pulse 88 10/03/24 07:44 Resp 16 10/03/24 07:44 BP 138/97 H 10/03/24 11:21 Pulse Ox 94 10/03/24 07:44 O2 Del Method Room Air 10/03/24 07:44 BMI result Body Mass Index 31.3 Const: General: no acute distress, alert and awake Resp: Effort & Inspection: normal respiratory effort and able to speak in complete sentences Auscultation: clear to auscultation bilaterally Cardio: Jugular venous distension: no JVD Rate: regular rate Rhythm: r egular rhythm Heart sounds: S1 normal heart sound present and S2 normal heart sound present GI: Palpation (GI): Soft to palpation and nontender : General: Yes no CVA tenderness Back/Spine/Pelvis: Back: no CVA tenderness Extrem: General: Yes edema (+1 BLE pitting edema) Objective Data Labs 10/02/24 06:08 10/03/24 05:48 Labs: Laboratory Results - last 24 hr 10/02/24 10/03/24 13:53 05:48 PT 27.6 H 25.3 H INR 2.4 H 2.2 H Sodium 144 Potassium 4.8 Chloride 109 H Carbon Dioxide 23 Anion Gap 17 BUN 73 H Creatinine 4.41 H* Estim Creat Clear Calc 15.2 Estimated GFR 13 Random Glucose 83 Calcium 9.1 U Random Total Protein 310 H Urine Creatinine 56.08 Procedures Date of Service Date of Service: 10/03/24 Assessment & Plan Assessment and plan (1) Acute kidney injury superimposed on CKD: Status: Acute (2) Proteinuria: Status: Acute (3) Hematuria: Status: Acute (4) Anemia: Status: Acute Plan GONZALO on CKD3; GONZALO most likely secondary to tubular injury in the setting of diuretic use with hypoalbuminemia Improving most likely progressive CKD with some component of GONZALO GFR of ~25 at baseline, nephrotic-range proteinuria and hematuria with diffuse bialteral renal atrophy on imaging serum and urine immunofixation pending given improvement in creatinine and urine output with IV diuresis, will schedule furosemide 40mg IVP BID and continue to monitor closely recommend close/strict I&O monitoring, blood pressures recommend daily electrolyte and renal function monitoring Continue supportive care avoid nephrotoxic substances Will continue to follow Discussed with Dr Perez Time Spent With Patient Time: Total time managing care of this patient today ____ minutes. Progress Note: Quality Stroke Does the patient have a stroke diagnosis?: No
[2024-10-03] MEDS: Metoprolol Tartrate 50 MG TABLET PO ×2 (08:54→21:36)
[2024-10-03] MEDS: Cholecalciferol (Vitamin D3) 25 MCG TABLET PO (08:54)
[2024-10-03] MEDS: Atorvastatin Calcium 80 MG TABLET PO (08:54)
[2024-10-03 11:21] VITALS: BP 138/97
[2024-10-03] MEDS: Furosemide 40 MG/4 ML VIAL IVPUSH ×2 (11:21→17:46)
--- NOTE | 2024-10-03 12:58 | MHC.CM.PN ---
PT COMPLETED A HCP TODAY NAMING HIS SON, ANIKA, AND DAUGHTER, TEMITOPE, HIS AGENTS NOW ON FILE
[2024-10-03 15:20] VITALS: BP 148/84; PULSE 99; RESP 20; TEMP 36.4; O2SAT 97
--- NOTE | 2024-10-03 15:30 | P.PNIM_ITS ---
Subjective Subjective Date of Service: 10/03/24 Interval History: Seen and examined this morning Follow-up for GONZALO History obtained with the assistance of a granulizing machine operator No specific complaints, no shortness a breath urinating a lot with diuretics Review of Systems Review of Systems: Yes all other systems are reviewed and are negative Constitutional Constitutional: Denies chills and Denies fever(s) Cardiovascular Cardiovascular: Denies chest pain, Denies palpitations and Denies dyspnea Respiratory Respiratory: Denies cough and Denies dyspnea Endocrine Endocrine: Denies palpitations Physical Exam 2 Vital Signs: Vital Signs: Last Vital Signs Temp 97.5 F 10/03/24 15:20 Pulse 99 10/03/24 15:20 Resp 20 10/03/24 15:20 BP 148/84 H 10/03/24 15:20 Pulse Ox 97 10/03/24 15:20 O2 Del Method Room Air 10/03/24 15:20 BMI result Body Mass Index 31.3 Const: General: cooperative, comfortable, no acute distress, well developed, alert and awake Nutritional Appearance: average body habitus O rientation/consciousness: patient oriented x3 Resp: Effort & Inspection: normal respiratory effort, able to speak in complete sentences, no respiratory distress and no use of accessory muscles A uscultation: clear to auscultation bilaterally GI: Inspection: No distended Palpation (GI): Soft to palpation and nontender Neuro: General: patient oriented x3, moves all extremities and CN's II-XI intact bilaterally Extrem: Other: b/l leg edema Objective Data Active Medications Acetaminophen (Acetaminophen 325 Mg Tablet) 650 mg PO Q6H PRN PRN Reason: Pain, Mild (Pain Scale 1-3), fever or headache Atorvastatin Calcium (Atorvastatin Calcium 80 Mg Tablet) 80 mg PO DAILY [facility] Last Admin: 10/03/24 08:54 Dose: 80 mg Documented By: MISHA Calcium Carbonate (Calcium Carbonate 750 Mg Tab.Chew) 750 mg PO Q4H PRN PRN Reason: Heartburn Fluticasone Propionate (Fluticasone Propionate Nasal 16 Gm [place]) 1 spray NOSTRIL-B DAILY [facility] Last Admin: 10/03/24 08:53 Dose: Not Given Documented By: MISHA Non-Admin Reason: Patient Refused Furosemide (Furosemide 40 Mg/4 Ml Vial) 40 mg IVPUSH BID@0900,1800 [facility]; Protocol Last Admin: 10/03/24 11:21 Dose: 40 mg Documented By: MISHA Gabapentin (Gabapentin 100 Mg Capsule) 200 mg PO BEDTIME [facility] Last Admin: 10/02/24 20:53 Dose: 200 mg Documented By: DANIEL Magnesium Hydroxide (Milk Of Magnesia 30 Ml Oral.Susp) 30 ml PO DAILY PRN PRN Reason: Constipation Melatonin (Melatonin 3 Mg Tablet) 6 mg PO BEDTIME PRN PRN Reason: Insomnia Metoprolol Tartrate (Metoprolol Tartrate 50 Mg Tablet) 50 mg PO BID [facility]; Protocol Last Admin: 10/03/24 08:54 Dose: 50 mg Documented By: MISHA Ondansetron HCl (Ondansetron Hcl 4 Mg/2 Ml Vial) 4 mg IVPUSH Q8H PRN PRN Reason: Nausea and Vomiting Sodium Chloride (0.9 % Sodium Chloride Flush 3 Ml Syringe) 3 ml IVFLUSH QSHIFT [facility] Last Admin: 10/03/24 08:55 Dose: 3 ml Documented By: MISHA Vitamin D (Cholecalciferol (Vitamin D3) 25 Mcg Tablet) 25 mcg PO DAILY [facility] Last Admin: 10/03/24 08:54 Dose: 25 mcg Documented By: MISHA Labs 10/02/24 06:08 10/03/24 05:48 Labs: Laboratory Results - last 24 hr 10/03/24 05:48 PT 25.3 H INR 2.2 H Anion Gap 17 Estim Creat Clear Calc 15.2 Estimated GFR 13 Random Glucose 83 Calcium 9.1 Assessment and Plan (1) Acute kidney injury superimposed on CKD: Status: Acute Plan 74-year-old male with pertinent history of atrial fibrillation on Coumadin, mixed hyperlipidemia, CKD stage 3, hypertension, coronary artery disease who was sent to the emergency department by his PCP for evaluation of abnormal labs. GONZALO on CKD stage 3: Creatinine bumped from 2.94 in 06/[address] abd/pelvis 10/02: diffuse bilateral renal atrophy. benign 1cm cyst left kidney. No hydronephrosis or inflammatory changes. 2mm and 2mm calculi of left kidney; 2mm calculus in left renal pelvis. No right sided calculi. no ureteral calculi noted. serum and urine immunofixation pending Nephrology consult - continue IV lasix follow Is&Os follow BMP acute hyperkalemia likely due to GONZALO resolved with Lokelma Hypertension: continue lopressor hold norvasc Dyslipidemia: continue Lipitor 80 mg Atrial fibrillation: On digoxin, metoprolol 100 mg b.i.d. and Coumadin at baseline will hold digoxin due to GONZALO resume metoprolol 50 mg b.i.d.,( home dose 100 mg b.i.d.) INR 2.2 neuropathy resume gabapentin 200 mg at bedtime DVT prophylaxis: Follow PT INR and resume Coumadin/place on compression boots patient requires ongoing inpatient stay for management of gonzalo requiring IV diuresis and specialist evaluation Quality Stroke Does the patient have a stroke diagnosis?: No VTE Prior VTE?: No VTE Risk Level:: Medical - moderate - high VTE Device Contraindication: Treatment Not Indicated VTE Drug Contraindication: N/A - Med Ordered
[2024-10-03] MEDS: Warfarin Sodium 5 MG TABLET PO (17:46)
[2024-10-03 19:38] VITALS: BP 141/94; PULSE 92; RESP 20; TEMP 36.4; O2SAT 96
[2024-10-03] MEDS: Gabapentin 100 MG CAPSULE 200 MG PO (21:36)
[2024-10-04 03:57] VITALS: BP 138/86; PULSE 90; RESP 18; TEMP 36.6; O2SAT 96
[2024-10-04 07:27] VITALS: BP 133/83; PULSE 77; RESP 16; TEMP 36.4; O2SAT 95
[2024-10-04 07:38] LABS: INTERNATIONAL NORM RATIO 1.8 (0.9-1.1)
[2024-10-04 08:01] LABS: Anion Gap 13 (12-20); Blood Urea Nitrogen 75 mg/dL (9-16); Calcium 8.5 mg/dL (8.4-10.2); Carbon Dioxide 25 mmol/L (22-29); Chloride 105 mmol/L (96-108); Creatinine Clr Calc Pharmacy 15.8; Estimated Glomerular Filt Rate 14; Glucose Random 84 mg/dL (60-115); Potassium 5.2 mmol/L (3.3-5.1); Sodium 138 mmol/L (135-145)
--- NOTE | 2024-10-04 08:45 | P.PNNP_ITS ---
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 Sees Dr Garcia, Nephrology, outpatient. pt advised to go to hospital by PCP due to abnormal renal function on outpatient labs on 09/30 Nephrology consulted for GONZALO, lasix held last creatinine on file 2.94 on 06/05, on admission 10/01 creatinine 4.38 creatinine trending down- 10/04 creatinine 4.26 getting lasix 40mg IBP BID patient reports frequent urination since diuretic administration he reports feeling well denies shortness of breath, dysuria/difficulty emptying bladder denies other concerns/new symptoms Urine 10/01: dip with large protein, microscopy shows 11-20 RBCs, no WBCs previous urine prot/creatinine ratio Jun 2023 was 6.3 10/02 urine protein/creatinine ratio 5.5 CT abd/pelvis 10/02: diffuse bilateral renal atrophy. benign 1cm cyst left kidney. No hydronephrosis or inflammatory changes. 2mm and 2mm calculi of left kidney; 2mm calculus in left renal pelvis. No right sided calculi. No ereteractasis, no ureteral calculi noted. Physical Exam 2 Vital Signs: Vital Signs: Last Vital Signs Temp 97.5 F 10/04/24 07:27 Pulse 77 10/04/24 07:27 Resp 16 10/04/24 07:27 BP 133/83 10/04/24 07:27 Pulse Ox 95 10/04/24 07:27 O2 Del Method Room Air 10/04/24 07:27 BMI result Body Mass Index 31.3 Const: General: no acute distress, alert and awake Resp: Effort & Inspection: normal respiratory effort and able to speak in complete sentences Auscultation: clear to auscultation bilaterally Cardio: Jugular venous distension: no JVD Rate: regular rate Rhythm: r egular rhythm Heart sounds: S1 normal heart sound present and S2 normal heart sound present GI: Palpation (GI): Soft to palpation and nontender : General: Yes no CVA tenderness Back/Spine/Pelvis: Back: no CVA tenderness Extrem: General: Yes edema (+1 BLE pitting edema) Objective Data Labs 10/02/24 06:08 10/04/24 06:01 Labs: Laboratory Results - last 24 hr 10/04/24 06:01 Hold Purple Top SEE NOTE PT 21.0 H INR 1.8 H Sodium 138 Potassium 5.2 H Chloride 105 Carbon Dioxide 25 Anion Gap 13 BUN 75 H Creatinine 4.26 H* Estim Creat Clear Calc 15.8 Estimated GFR 14 Random Glucose 84 Calcium 8.5 D Procedures Date of Service Date of Service: 10/04/24 Assessment & Plan Assessment and plan (1) Acute kidney injury superimposed on CKD: Status: Acute (2) Proteinuria: Status: Acute (3) Hematuria: Status: Acute (4) Anemia: Status: Acute Plan GONZALO on CKD3; GONZALO most likely secondary to tubular injury in the setting of diuretic use with hypoalbuminemia. Also likely has component of cardiorenal syndrome Improving most likely progressive CKD with some component of GONZALO GFR of ~25 at baseline, nephrotic-range proteinuria and hematuria with diffuse bialteral renal atrophy on imaging serum and urine immunofixation pending given improvement in creatinine and urine output with IV diuresis, will increase to furosemide 80mg IVP BID recommend close/strict I&O monitoring, blood pressures recommend daily electrolyte and renal function monitoring Continue supportive care avoid nephrotoxic substances Will continue to follow Discussed with Dr Perez Time Spent With Patient Time: Total time managing care of this patient today ____ minutes. Progress Note: Quality Stroke Does the patient have a stroke diagnosis?: No
[2024-10-04] MEDS: Atorvastatin Calcium 80 MG TABLET PO (09:28)
[2024-10-04] MEDS: Metoprolol Tartrate 50 MG TABLET PO ×2 (09:28→19:56)
[2024-10-04] MEDS: Cholecalciferol (Vitamin D3) 25 MCG TABLET PO (09:28)
[2024-10-04] MEDS: Furosemide 40 MG/4 ML VIAL IVPUSH (09:28)
[2024-10-04] MEDS: 0.9 % Sodium Chloride Flush 3 ML SYRINGE IVFLUSH ×3 (09:29→19:56)
--- NOTE | 2024-10-04 12:19 | MHC.CM.PN ---
Per MD rounds patient not medically cleared for dc. CM will continue to follow.
--- NOTE | 2024-10-04 14:30 | HO.PM.IMPN ---
Subjective Subjective Date of Service: 10/04/24 Interval History: seen and examined this morning follow up for GONZALO no overnight events no specific complaints, no sob; urinating without difficulty Review of Systems Review of Systems: Yes all other systems are reviewed and are negative Constitutional Constitutional: Denies chills and Denies fever(s) Cardiovascular Cardiovascular: Denies chest pain, Denies palpitations and Denies dyspnea Respiratory Respiratory: Denies cough and Denies dyspnea Gastrointestinal Gastrointestinal: Denies abdominal pain, Denies nausea and Denies vomiting Endocrine Endocrine: Denies palpitations Physical Exam Vital Signs: Vital Signs: Last Vital Signs Temp 97.5 F 10/04/24 07:27 Pulse 77 10/04/24 07:27 Resp 16 10/04/24 07:27 BP 133/83 10/04/24 07:27 Pulse Ox 95 10/04/24 07:27 O2 Del Method Room Air 10/04/24 07:27 BMI result Body Mass Index 31.3 Const: General: cooperative, comfortable, no acute distress, well developed, alert and awake Nutritional Appearance: average body habitus Orientation/consciousness: patient oriented x3 Resp: Effort & Inspection: normal respiratory effort, able to speak in complete sentences, no respiratory distress and no use of accessory muscles Auscultation: clear to auscultation bilaterally GI: Inspection: No distended Palpation (GI): Soft to palpation and nontender Neuro: General: patient oriented x3, moves all extremities and CN's II-XI intact bilaterally Extrem: Other: b/l leg edema Objective Data Active Medications Acetaminophen (Acetaminophen 325 Mg Tablet) 650 mg PO Q6H PRN PRN Reason: Pain, Mild (Pain Scale 1-3), fever or headache Atorvastatin Calcium (Atorvastatin Calcium 80 Mg Tablet) 80 mg PO DAILY [facility] Last Admin: 10/04/24 09:28 Dose: 80 mg Documented By: MISHA Calcium Carbonate (Calcium Carbonate 750 Mg Tab.Chew) 750 mg PO Q4H PRN PRN Reason: Heartburn Fluticasone Propionate (Fluticasone Propionate Nasal 16 Gm [place]) 1 spray NOSTRIL-B DAILY [facility] Last Admin: 10/04/24 09:47 Dose: Not Given Documented By: MISHA Non-Admin Reason: Patient Refused Furosemide (Furosemide 40 Mg/4 Ml Vial) 80 mg IVPUSH BID@0900,1800 [facility]; Protocol Gabapentin (Gabapentin 100 Mg Capsule) 200 mg PO BEDTIME [facility] Last Admin: 10/03/24 21:36 Dose: 200 mg Documented By: JESSICA Magnesium Hydroxide (Milk Of Magnesia 30 Ml Oral.Susp) 30 ml PO DAILY PRN PRN Reason: Constipation Melatonin (Melatonin 3 Mg Tablet) 6 mg PO BEDTIME PRN PRN Reason: Insomnia Metoprolol Tartrate (Metoprolol Tartrate 50 Mg Tablet) 50 mg PO BID [facility]; Protocol Last Admin: 10/04/24 09:28 Dose: 50 mg Documented By: MISHA Ondansetron HCl (Ondansetron Hcl 4 Mg/2 Ml Vial) 4 mg IVPUSH Q8H PRN PRN Reason: Nausea and Vomiting Sodium Chloride (0.9 % Sodium Chloride Flush 3 Ml Syringe) 3 ml IVFLUSH QSHIFT [facility] Last Admin: 10/04/24 09:29 Dose: 3 ml Documented By: MISHA Vitamin D (Cholecalciferol (Vitamin D3) 25 Mcg Tablet) 25 mcg PO DAILY [facility] Last Admin: 10/04/24 09:28 Dose: 25 mcg Documented By: MISHA Warfarin Sodium (Warfarin Sodium 7.5 Mg Tablet) 7.5 mg PO Mo@1800 [facility] Warfarin Sodium (Warfarin Sodium 5 Mg Tablet) 5 mg PO SuTuWeThFrSa@1800 [facility] Last Admin: 10/03/24 17:46 Dose: 5 mg Documented By: MISHA Labs 10/02/24 06:08 10/04/24 06:01 Labs: Laboratory Results - last 24 hr 10/04/24 06:01 Hold Purple Top SEE NOTE PT 21.0 H INR 1.8 H Anion Gap 13 Estim Creat Clear Calc 15.8 Estimated GFR 14 Random Glucose 84 Calcium 8.5 D Assessment and Plan (1) Acute kidney injury superimposed on CKD: Status: Acute (2) Hyperkalemia: Status: Acute Plan 74-year-old male with pertinent history of atrial fibrillation on Coumadin, mixed hyperlipidemia, CKD stage 3, hypertension, coronary artery disease who was sent to the emergency department by his PCP for evaluation of abnormal labs. GONZALO on CKD stage 3: Creatinine bumped from 2.94 in 06/12 to 4.61; slight improvement in creatinine to 4.26 CT abd/pelvis 10/02: diffuse bilateral renal atrophy. benign 1cm cyst left kidney. No hydronephrosis or inflammatory changes. 2mm and 2mm calculi of left kidney; 2mm calculus in left renal pelvis. No right sided calculi. no ureteral calculi noted. Per nephrology - likely has component of cardiorenal syndrome serum and urine immunofixation pending Nephrology consult - increase dose of lasix follow Is&Os follow BMP acute hyperkalemia likely due to GONZALO K up and down per nephro - prn shawn for K of 5.8 or above Hypertension: continue lopressor hold norvasc Dyslipidemia: continue Lipitor 80 mg Atrial fibrillation: On digoxin, metoprolol 100 mg b.i.d. and Coumadin at baseline will hold digoxin due to GONZALO resume metoprolol 50 mg b.i.d.,( home dose 100 mg b.i.d.) INR 1.8, follow INR daily neuropathy resume gabapentin 200 mg at bedtime DVT prophylaxis: Follow PT INR and resume Coumadin/place on compression boots patient requires ongoing inpatient stay for management of gonzalo requiring IV diuresis and specialist evaluation Quality Stroke Does the patient have a stroke diagnosis?: No VTE Prior VTE?: No VTE Risk Level:: Medical - moderate - high VTE Device Contraindication: Treatment Not Indicated VTE Drug Contraindication: N/A - Med Ordered
[2024-10-04 15:28] VITALS: BP 148/93; PULSE 83; RESP 20; TEMP 36.2; O2SAT 96
[2024-10-04 17:21] VITALS: BP 141/89
[2024-10-04] MEDS: Furosemide 40 MG/4 ML VIAL 80 MG IVPUSH (17:21)
[2024-10-04] MEDS: Warfarin Sodium 5 MG TABLET PO (17:21)
[2024-10-04 19:31] VITALS: BP 133/86; PULSE 88; RESP 20; TEMP 36; O2SAT 96
[2024-10-04] MEDS: Gabapentin 100 MG CAPSULE 200 MG PO (19:56)
[2024-10-05 07:43] LABS: INTERNATIONAL NORM RATIO 1.9 (0.9-1.1); Prothrombin Time 22.5 SEC (10.9-12.4)
[2024-10-05 07:44] VITALS: BP 141/98; PULSE 94; RESP 20; TEMP 36.7; O2SAT 95
[2024-10-05] MEDS: 0.9 % Sodium Chloride Flush 3 ML SYRINGE IVFLUSH ×3 (09:59→21:35)
[2024-10-05] MEDS: Cholecalciferol (Vitamin D3) 25 MCG TABLET PO (09:59)
[2024-10-05] MEDS: Atorvastatin Calcium 80 MG TABLET PO (10:00)
[2024-10-05] MEDS: Metoprolol Tartrate 50 MG TABLET PO ×2 (10:00→21:35)
[2024-10-05] MEDS: Furosemide 40 MG/4 ML VIAL 80 MG IVPUSH (10:00)
[2024-10-05 12:53] LABS: Anion Gap 21 (12-20); Blood Urea Nitrogen 84 mg/dL (9-16); Calcium 9.3 mg/dL (8.4-10.2); Carbon Dioxide 20 mmol/L (22-29); Chloride 104 mmol/L (96-108); Creatinine Clr Calc Pharmacy 13.6; Estimated Glomerular Filt Rate 12; Glucose Random 117 mg/dL (60-115); Potassium 4.8 mmol/L (3.3-5.1); Sodium 140 mmol/L (135-145)
--- NOTE | 2024-10-05 14:58 | HO.PM.IMPN ---
Subjective Subjective Date of Service: 10/05/24 Interval History: seen and examined this morning follow up for GONZALO no overnight events voiding without difficulty Review of Systems Review of Systems: Yes all other systems are reviewed and are negative Constitutional Constitutional: Denies chills and Denies fever(s) Cardiovascular Cardiovascular: Denies chest pain, Denies palpitations and Denies dyspnea Respiratory Respiratory: Denies cough and Denies dyspnea Endocrine Endocrine: Denies palpitations Physical Exam Vital Signs: Vital Signs: Last Vital Signs Temp 98.1 F 10/05/24 07:44 Pulse 94 10/05/24 07:44 Resp 20 10/05/24 07:44 BP 141/98 H 10/05/24 07:44 Pulse Ox 95 10/05/24 07:44 O2 Del Method Room Air 10/05/24 07:44 BMI result Body Mass Index 31.3 Const: General: cooperative, comfortable, no acute distress, well developed, alert and awake Nutritional Appearance: average body habitus Orientation/consciousness: patient oriented x3 Resp: Effort & Inspection: normal respiratory effort, able to speak in complete sentences, no respiratory distress and no use of accessory muscles Auscultation: clear to auscultation bilaterally GI: Inspection: No distended Palpation (GI): Soft to palpation and nontender Neuro: General: patient oriented x3, moves all extremities and CN's II-XI intact bilaterally Extrem: Other: b/l leg edema Objective Data Active Medications Acetaminophen (Acetaminophen 325 Mg Tablet) 650 mg PO Q6H PRN PRN Reason: Pain, Mild (Pain Scale 1-3), fever or headache Atorvastatin Calcium (Atorvastatin Calcium 80 Mg Tablet) 80 mg PO DAILY [facility] Last Admin: 10/05/24 10:00 Dose: 80 mg Documented By: CODY Calcium Carbonate (Calcium Carbonate 750 Mg Tab.Chew) 750 mg PO Q4H PRN PRN Reason: Heartburn Fluticasone Propionate (Fluticasone Propionate Nasal 16 Gm [place]) 1 spray NOSTRIL-B DAILY [facility] Last Admin: 10/05/24 10:17 Dose: Not Given Documented By: CODY Non-Admin Reason: Patient Refused Furosemide (Furosemide 40 Mg/4 Ml Vial) 40 mg IVPUSH BID@0900,1800 [facility]; Protocol Gabapentin (Gabapentin 100 Mg Capsule) 200 mg PO BEDTIME [facility] Last Admin: 10/04/24 19:56 Dose: 200 mg Documented By: JESSICA Magnesium Hydroxide (Milk Of Magnesia 30 Ml Oral.Susp) 30 ml PO DAILY PRN PRN Reason: Constipation Melatonin (Melatonin 3 Mg Tablet) 6 mg PO BEDTIME PRN PRN Reason: Insomnia Metoprolol Tartrate (Metoprolol Tartrate 50 Mg Tablet) 50 mg PO BID [facility]; Protocol Last Admin: 10/05/24 10:00 Dose: 50 mg Documented By: CODY Ondansetron HCl (Ondansetron Hcl 4 Mg/2 Ml Vial) 4 mg IVPUSH Q8H PRN PRN Reason: Nausea and Vomiting Sodium Chloride (0.9 % Sodium Chloride Flush 3 Ml Syringe) 3 ml IVFLUSH QSHIFT [facility] Last Admin: 10/05/24 09:59 Dose: 3 ml Documented By: CODY Vitamin D (Cholecalciferol (Vitamin D3) 25 Mcg Tablet) 25 mcg PO DAILY [facility] Last Admin: 10/05/24 09:59 Dose: 25 mcg Documented By: CODY Warfarin Sodium (Warfarin Sodium 7.5 Mg Tablet) 7.5 mg PO Mo@1800 [facility] Warfarin Sodium (Warfarin Sodium 5 Mg Tablet) 5 mg PO SuTuWeThFrSa@1800 [facility] Last Admin: 10/04/24 17:21 Dose: 5 mg Documented By: MISHA Labs 10/02/24 06:08 10/05/24 09:30 Labs: Laboratory Results - last 24 hr 10/05/24 10/05/24 06:44 09:30 Hold Purple Top SEE NOTE PT 22.5 H INR 1.9 H Anion Gap 21 H Estim Creat Clear Calc 13.6 Estimated GFR 12 Random Glucose 117 H Calcium 9.3 D Assessment and Plan (1) Acute kidney injury superimposed on CKD: Status: Acute Plan 74-year-old male with pertinent history of atrial fibrillation on Coumadin, mixed hyperlipidemia, CKD stage 3, hypertension, coronary artery disease who was sent to the emergency department by his PCP for evaluation of abnormal labs. GONZALO on CKD stage 3: Creatinine bumped from 2.94 in 06/12 to 4.61; initially improving with IV lasix, now renal function back up to 4.93 Per nephrology - likely progression of underlying kidney disease but probable component of cardiorenal syndrome recommend to reduce lasix to 40 bid serum and urine immunofixation pending follow Is&Os follow BMP acute hyperkalemia likely due to GONZALO K up and down per nephro - prn shawn for K of 5.8 or above Hypertension: continue lopressor, resume norvasc Dyslipidemia: continue Lipitor 80 mg Atrial fibrillation: On digoxin, metoprolol 100 mg b.i.d. and Coumadin at baseline will hold digoxin due to GONZALO resume metoprolol 50 mg b.i.d.,( home dose 100 mg b.i.d.) INR 1.9, follow INR daily neuropathy resume gabapentin 200 mg at bedtime DVT prophylaxis: Coumadin/compression boots patient requires ongoing inpatient stay for management of gonzalo requiring IV diuresis and specialist evaluation Quality Stroke Does the patient have a stroke diagnosis?: No VTE Prior VTE?: No VTE Risk Level:: Medical - moderate - high VTE Device Contraindication: Treatment Not Indicated VTE Drug Contraindication: N/A - Med Ordered
[2024-10-05 15:40] VITALS: BP 140/92; PULSE 67; RESP 20; TEMP 36.6; O2SAT 94
[2024-10-05 15:45] VITALS: BP 140/92; PULSE 71; RESP 18; TEMP 36.6; O2SAT 94
[2024-10-05] MEDS: Warfarin Sodium 5 MG TABLET PO (18:08)
[2024-10-05] MEDS: Furosemide 40 MG/4 ML VIAL IVPUSH (18:09)
[2024-10-05 19:31] VITALS: BP 151/67; PULSE 98; RESP 18; TEMP 36.7; O2SAT 96
[2024-10-05] MEDS: Gabapentin 100 MG CAPSULE 200 MG PO (21:35)
[2024-10-06 07:23] LABS: INTERNATIONAL NORM RATIO 2.6 (0.9-1.1); Prothrombin Time 30.1 SEC (10.9-12.4)
[2024-10-06 07:37] LABS: Anion Gap 19 (12-20); Blood Urea Nitrogen 85 mg/dL (9-16); Calcium 8.8 mg/dL (8.4-10.2); Carbon Dioxide 22 mmol/L (22-29); Chloride 103 mmol/L (96-108); Creatinine Clr Calc Pharmacy 14.2; Estimated Glomerular Filt Rate 12; Glucose Random 99 mg/dL (60-115); Potassium 4.6 mmol/L (3.3-5.1); Sodium 139 mmol/L (135-145)
[2024-10-06 07:44] VITALS: BP 138/84; PULSE 75; RESP 20; TEMP 36.3; O2SAT 98
[2024-10-06] MEDS: 0.9 % Sodium Chloride Flush 3 ML SYRINGE IVFLUSH ×3 (10:11→20:29)
[2024-10-06] MEDS: Furosemide 40 MG/4 ML VIAL IVPUSH ×2 (10:11→16:51)
[2024-10-06] MEDS: Cholecalciferol (Vitamin D3) 25 MCG TABLET PO (10:12)
[2024-10-06 10:13] VITALS: BP 133/82; PULSE 83
[2024-10-06] MEDS: Metoprolol Tartrate 50 MG TABLET PO ×2 (10:13→20:28)
[2024-10-06] MEDS: Atorvastatin Calcium 80 MG TABLET PO (10:13)
[2024-10-06] MEDS: amLODIPine Besylate 2.5 MG TABLET PO (10:13)
--- NOTE | 2024-10-06 11:00 | P.PNIM_ITS ---
Subjective Subjective Date of Service: 10/06/24 Interval History: Seen and examined this morning Follow-up for renal failure History obtained with the assistance of a historic sites supervisor No overnight events No shortness a breath, no specific complaints Review of Systems Review of Systems: Yes all other systems are reviewed and are negative Constitutional Constitutional: Denies chills and Denies fever(s) ENT Ears, Nose, Mouth, and Throat: Denies dizziness Cardiovascular Cardiovascular: Denies chest pain, Denies palpitations and Denies dyspnea Respiratory Respiratory: Denies cough and Denies dyspnea Neurologic Neurologic: Denies dizziness Endocrine Endocrine: Denies palpitations Physical Exam 2 Vital Signs: Vital Signs: Last Vital Signs Temp 97.4 F 10/06/24 07:44 Pulse 83 10/06/24 10:13 Resp 20 10/06/24 07:44 BP 133/82 10/06/24 10:13 Pulse Ox 98 10/06/24 07:44 O2 Del Method Room Air 10/06/24 07:44 BMI result Body Mass Index 31.3 Const: General: cooperative, comfortable, no acute distress, well developed, alert and awake Nutritional Appearance: average body habitus O rientation/consciousness: patient oriented x3 Resp: Effort & Inspection: normal respiratory effort, able to speak in complete sentences, no respiratory distress and no use of accessory muscles A uscultation: clear to auscultation bilaterally GI: Inspection: No distended Palpation (GI): Soft to palpation and nontender Neuro: General: patient oriented x3, moves all extremities and CN's II-XI intact bilaterally Extrem: Other: b/l leg edema, 1+ Objective Data Active Medications Acetaminophen (Acetaminophen 325 Mg Tablet) 650 mg PO Q6H PRN PRN Reason: Pain, Mild (Pain Scale 1-3), fever or headache Amlodipine Besylate (Amlodipine Besylate 2.5 Mg Tablet) 2.5 mg PO DAILY [facility]; Protocol Last Admin: 10/06/24 10:13 Dose: 2.5 mg Documented By: CODY Atorvastatin Calcium (Atorvastatin Calcium 80 Mg Tablet) 80 mg PO DAILY [facility] Last Admin: 10/06/24 10:13 Dose: 80 mg Documented By: CODY Calcium Carbonate (Calcium Carbonate 750 Mg Tab.Chew) 750 mg PO Q4H PRN PRN Reason: Heartburn Fluticasone Propionate (Fluticasone Propionate Nasal 16 Gm [place]) 1 spray NOSTRIL-B DAILY [facility] Last Admin: 10/06/24 10:55 Dose: Not Given Documented By: CODY Non-Admin Reason: Patient Refused Furosemide (Furosemide 40 Mg/4 Ml Vial) 40 mg IVPUSH BID@0900,1800 [facility]; Protocol Last Admin: 10/06/24 10:11 Dose: 40 mg Documented By: CODY Gabapentin (Gabapentin 100 Mg Capsule) 200 mg PO BEDTIME [facility] Last Admin: 10/05/24 21:35 Dose: 200 mg Documented By: JESSICA Magnesium Hydroxide (Milk Of Magnesia 30 Ml Oral.Susp) 30 ml PO DAILY PRN PRN Reason: Constipation Melatonin (Melatonin 3 Mg Tablet) 6 mg PO BEDTIME PRN PRN Reason: Insomnia Metoprolol Tartrate (Metoprolol Tartrate 50 Mg Tablet) 50 mg PO BID [facility]; Protocol Last Admin: 10/06/24 10:13 Dose: 50 mg Documented By: CODY Ondansetron HCl (Ondansetron Hcl 4 Mg/2 Ml Vial) 4 mg IVPUSH Q8H PRN PRN Reason: Nausea and Vomiting Sodium Chloride (0.9 % Sodium Chloride Flush 3 Ml Syringe) 3 ml IVFLUSH QSHIFT [facility] Last Admin: 10/06/24 10:11 Dose: 3 ml Documented By: CODY Vitamin D (Cholecalciferol (Vitamin D3) 25 Mcg Tablet) 25 mcg PO DAILY [facility] Last Admin: 10/06/24 10:12 Dose: 25 mcg Documented By: CODY Warfarin Sodium (Warfarin Sodium 7.5 Mg Tablet) 7.5 mg PO Mo@1800 [facility] Warfarin Sodium (Warfarin Sodium 5 Mg Tablet) 5 mg PO SuTuWeThFrSa@1800 [facility] Last Admin: 10/05/24 18:08 Dose: 5 mg Documented By: CODY Labs 10/02/24 06:08 10/06/24 06:52 Labs: Laboratory Results - last 24 hr 10/05/24 10/06/24 09:30 06:52 PT 30.1 H D INR 2.6 H Anion Gap 21 H 19 Estim Creat Clear Calc 13.6 14.2 Estimated GFR 12 12 Random Glucose 117 H 99 Calcium 9.3 D 8.8 Assessment and Plan (1) Acute kidney injury superimposed on CKD: Status: Acute Plan 74-year-old male with pertinent history of atrial fibrillation on Coumadin, mixed hyperlipidemia, CKD stage 3, hypertension, coronary artery disease who was sent to the emergency department by his PCP for evaluation of abnormal labs. GONZALO on CKD stage 3: Creatinine bumped from 2.94 in 06/12 to 4.61; initially improving with IV lasix, then bumped up when dose of lasix was increased, now trending back down with reduced dose of lasix Per nephrology - likely progression of underlying kidney disease but probable component of cardiorenal syndrome continue IV lasix 40 bid - probabe transition to po torsemide in am serum and urine immunofixation pending Is&Os done appear to be accurat e follow BMP will need outpatient follow up with nephrology acute hyperkalemia due to worsening renal function. K has been up and down, normal at this time. per nephro - prn shawn for K of 5.8 or above Hypertension: continue lopressor, resume norvasc Dyslipidemia: continue Lipitor 80 mg Atrial fibrillation: On digoxin, metoprolol 100 mg b.i.d. and Coumadin at baseline will hold digoxin due to GONZALO resume metoprolol 50 mg b.i.d.,( home dose 100 mg b.i.d.) INR 2.6, follow INR daily neuropathy resume gabapentin 200 mg at bedtime DVT prophylaxis: Coumadin patient requires ongoing inpatient stay for management of gonzalo requiring IV diuresis and specialist evaluation Quality Stroke Does the patient have a stroke diagnosis?: No VTE Prior VTE?: No VTE Risk Level:: Medical - moderate - high VTE Device Contraindication: Treatment Not Indicated VTE Drug Contraindication: N/A - Med Ordered
[2024-10-06 15:49] VITALS: BP 134/97; PULSE 80; RESP 20; TEMP 36.3; O2SAT 96
[2024-10-06] MEDS: Warfarin Sodium 5 MG TABLET PO (16:51)
[2024-10-06 20:00] VITALS: BP 137/83; PULSE 80; RESP 18; TEMP 36.6; O2SAT 96
[2024-10-06] MEDS: Gabapentin 100 MG CAPSULE 200 MG PO (20:28)
[2024-10-07 03:15] VITALS: BP 147/76; PULSE 77; RESP 18; TEMP 36.7; O2SAT 95
[2024-10-07 07:17] LABS: INTERNATIONAL NORM RATIO 3.2 (0.9-1.1); Prothrombin Time 37.8 SEC (10.9-12.4)
[2024-10-07 07:38] VITALS: BP 139/90; PULSE 80; RESP 16; TEMP 36.4; O2SAT 95
[2024-10-07 07:41] LABS: Anion Gap 19 (12-20); Blood Urea Nitrogen 100 mg/dL (9-16); Calcium 8.9 mg/dL (8.4-10.2); Carbon Dioxide 23 mmol/L (22-29); Chloride 103 mmol/L (96-108); Creatinine Clr Calc Pharmacy 12.3; Estimated Glomerular Filt Rate 10; Glucose Random 101 mg/dL (60-115); Potassium 4.9 mmol/L (3.3-5.1); Sodium 140 mmol/L (135-145)
[2024-10-07] MEDS: Metoprolol Tartrate 50 MG TABLET PO ×2 (07:56→20:29)
[2024-10-07] MEDS: amLODIPine Besylate 2.5 MG TABLET PO (07:56)
[2024-10-07] MEDS: Cholecalciferol (Vitamin D3) 25 MCG TABLET PO (07:56)
[2024-10-07] MEDS: Furosemide 40 MG/4 ML VIAL IVPUSH ×2 (07:57→17:21)
[2024-10-07] MEDS: Atorvastatin Calcium 80 MG TABLET PO (07:57)
[2024-10-07] MEDS: 0.9 % Sodium Chloride Flush 3 ML SYRINGE IVFLUSH ×3 (08:00→20:30)
--- NOTE | 2024-10-07 10:53 | MHC.CM.PN ---
PER MD ROUNDS PATIENT NOT MEDICALLY CLEARED FOR DC. AWAITING NEPHRO PLAN. ? NEW HD. CM WILL CONTINUE TO FOLLOW.
--- NOTE | 2024-10-07 11:15 | P.PNNP_ITS ---
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 Sees Dr Garcia, Nephrology, outpatient. pt advised to go to hospital by PCP due to abnormal renal function on outpatient labs on 09/30 Nephrology consulted for GONZALO, xiomy held last creatinine on file 2.94 on 06/05, on admission 10/01 creatinine 4.38 creatinine initially improving with IV diuresis however, creatinine has been trending up BUN 100 pt reports frequent urination in small amounts he reports feeling well and denies complaints/concerns denies shortness of breath, dysuria/difficulty emptying bladder denies other concerns/new symptoms Urine 10/01: dip with large protein, microscopy shows 11-20 RBCs, no WBCs previous urine prot/creatinine ratio Jun 2023 was 6.3 10/02 urine protein/creatinine ratio 5.5 CT abd/pelvis 10/02: diffuse bilateral renal atrophy. benign 1cm cyst left kidney. No hydronephrosis or inflammatory changes. 2mm and 2mm calculi of left kidney; 2mm calculus in left renal pelvis. No right sided calculi. No ereteractasis, no ureteral calculi noted. Physical Exam 2 Vital Signs: Vital Signs: Last Vital Signs Temp 97.5 F 10/07/24 07:38 Pulse 80 10/07/24 07:38 Resp 16 10/07/24 07:38 BP 139/90 H 10/07/24 07:38 Pulse Ox 95 10/07/24 07:38 O2 Del Method Room Air 10/07/24 07:38 BMI result Body Mass Index 31.3 Const: General: no acute distress, alert and awake Resp: Effort & Inspection: normal respiratory effort and able to speak in complete sentences Auscultation: clear to auscultation bilaterally Cardio: Jugular venous distension: no JVD Rate: regular rate Rhythm: r egular rhythm Heart sounds: S1 normal heart sound present and S2 normal heart sound present GI: Palpation (GI): Soft to palpation and nontender : General: Yes no CVA tenderness Back/Spine/Pelvis: Back: no CVA tenderness Extrem: General: Yes edema (+1 BLE pitting edema) Objective Data Labs 10/02/24 06:08 10/07/24 05:58 Labs: Laboratory Results - last 24 hr 10/07/24 05:58 Hold Purple Top SEE NOTE PT 37.8 H D INR 3.2 H Sodium 140 Potassium 4.9 Chloride 103 Carbon Dioxide 23 Anion Gap 19 BUN 100 H Creatinine 5.45 H* Estim Creat Clear Calc 12.3 Estimated GFR 10 Random Glucose 101 Calcium 8.9 Procedures Date of Service Date of Service: 10/07/24 Assessment & Plan Assessment and plan (1) Acute kidney injury superimposed on CKD: Status: Acute (2) Proteinuria: Status: Acute (3) Hematuria: Status: Acute (4) Anemia: Status: Acute Plan GONZALO on CKD3; GONZALO most likely progression of underlying renal disease given nephrotic-range proteinuria and hematuria with diffuse bialteral renal atrophy on imaging Also likely has component of cardiorenal syndrome Worsening serum and urine immunofixation pending discussion with patient and his son today (car installations supervisor used for conversation today) regarding worsening renal function and possibility of needing dialysis in the coming days, pt and son verbalize understanding recommend hold coumadin and will plan to place permacath on 10/10 may continue IV lasix as ordered recommend close/strict I&O monitoring, blood pressures recommend daily electrolyte and renal function monitoring Continue supportive care avoid nephrotoxic substances Will continue to follow Discussed with Dr Garcia Time Spent With Patient Time: Total time managing care of this patient today ____ minutes. Progress Note: Quality Stroke Does the patient have a stroke diagnosis?: No
--- NOTE | 2024-10-07 13:33 | P.PNIM_ITS ---
Subjective Subjective Date of Service: 10/07/24 Interval History: Follow-up for renal failure No overnight events No shortness a breath, no specific complaints Review of Systems Review of Systems: Yes all other systems are reviewed and are negative Constitutional Constitutional: Denies chills and Denies fever(s) ENT Ears, Nose, Mouth, and Throat: Denies dizziness Cardiovascular Cardiovascular: Denies chest pain, Denies palpitations and Denies dyspnea Respiratory Respiratory: Denies cough and Denies dyspnea Neurologic Neurologic: Denies dizziness Endocrine Endocrine: Denies palpitations Physical Exam 2 Vital Signs: Vital Signs: Last Vital Signs Temp 97.5 F 10/07/24 07:38 Pulse 80 10/07/24 07:38 Resp 16 10/07/24 07:38 BP 139/90 H 10/07/24 07:38 Pulse Ox 95 10/07/24 07:38 O2 Del Method Room Air 10/07/24 07:38 BMI result Body Mass Index 31.3 Appearing in no acute distress lung sounds are clear to auscultation heart regular rate rhythm, clear S1, S2 positive bowel sounds, abdomen is soft, nontender neuro patient is alert x3, no focal deficits Objective Data Active Medications Acetaminophen (Acetaminophen 325 Mg Tablet) 650 mg PO Q6H PRN PRN Reason: Pain, Mild (Pain Scale 1-3), fever or headache Amlodipine Besylate (Amlodipine Besylate 2.5 Mg Tablet) 2.5 mg PO DAILY [facility]; Protocol Last Admin: 10/07/24 07:56 Dose: 2.5 mg Documented By: ELLIOT Atorvastatin Calcium (Atorvastatin Calcium 80 Mg Tablet) 80 mg PO DAILY [facility] Last Admin: 10/07/24 07:57 Dose: 80 mg Documented By: ELLIOT Calcium Carbonate (Calcium Carbonate 750 Mg Tab.Chew) 750 mg PO Q4H PRN PRN Reason: Heartburn Fluticasone Propionate (Fluticasone Propionate Nasal 16 Gm [place]) 1 spray NOSTRIL-B DAILY [facility] Last Admin: 10/07/24 07:56 Dose: Not Given Documented By: ELLIOT Non-Admin Reason: Patient Refused Furosemide (Furosemide 40 Mg/4 Ml Vial) 40 mg IVPUSH BID@0900,1800 [facility]; Protocol Last Admin: 10/07/24 07:57 Dose: 40 mg Documented By: ELLIOT Gabapentin (Gabapentin 100 Mg Capsule) 200 mg PO BEDTIME [facility] Last Admin: 10/06/24 20:28 Dose: 200 mg Documented By: AAYUSH Magnesium Hydroxide (Milk Of Magnesia 30 Ml Oral.Susp) 30 ml PO DAILY PRN PRN Reason: Constipation Melatonin (Melatonin 3 Mg Tablet) 6 mg PO BEDTIME PRN PRN Reason: Insomnia Metoprolol Tartrate (Metoprolol Tartrate 50 Mg Tablet) 50 mg PO BID [facility]; Protocol Last Admin: 10/07/24 07:56 Dose: 50 mg Documented By: ELLIOT Ondansetron HCl (Ondansetron Hcl 4 Mg/2 Ml Vial) 4 mg IVPUSH Q8H PRN PRN Reason: Nausea and Vomiting Sodium Chloride (0.9 % Sodium Chloride Flush 3 Ml Syringe) 3 ml IVFLUSH QSHIFT [facility] Last Admin: 10/07/24 08:00 Dose: 3 ml Documented By: ELLIOT Vitamin D (Cholecalciferol (Vitamin D3) 25 Mcg Tablet) 25 mcg PO DAILY [facility] Last Admin: 10/07/24 07:56 Dose: 25 mcg Documented By: ELLIOT Warfarin Sodium (Warfarin Sodium 7.5 Mg Tablet) 7.5 mg PO Mo@1800 [facility] Warfarin Sodium (Warfarin Sodium 5 Mg Tablet) 5 mg PO SuTuWeThFrSa@1800 [facility] Last Admin: 10/06/24 16:51 Dose: 5 mg Documented By: CODY Labs 10/02/24 06:08 10/07/24 05:58 Labs: Laboratory Results - last 24 hr 10/07/24 05:58 Hold Purple Top SEE NOTE PT 37.8 H D INR 3.2 H Anion Gap 19 Estim Creat Clear Calc 12.3 Estimated GFR 10 Random Glucose 101 Calcium 8.9 Assessment and Plan (1) Acute kidney injury superimposed on CKD: Status: Acute Plan 74-year-old male with pertinent history of atrial fibrillation on Coumadin, mixed hyperlipidemia, CKD stage 3, hypertension, coronary artery disease who was sent to the emergency department by his PCP for evaluation of abnormal labs. GONZALO on CKD stage 3 initially improving with IV lasix Per nephrology - likely progression of underlying kidney disease but probable component of cardiorenal syndrome continue IV lasix 40 bid for now serum and urine immunofixation pending permacath placement for 10/10, warfarin on hold Acute hyperkalemia. Resolved due to worsening renal function. K has been up and down, normal at this time. per nephro - prn shawn for K of 5.8 or above Hypertension continue lopressor, norvasc Dyslipidemia continue Lipitor 80 mg Atrial fibrillation On digoxin, metoprolol 100 mg b.i.d. and Coumadin at baseline will hold digoxin due to GONZALO resume metoprolol 50 mg b.i.d.,( home dose 100 mg b.i.d.) INR 2.6, follow INR daily hold warfarin for permacath placement on neuropathy gabapentin 200 mg at bedtime DVT prophylaxis: Coumadin Attending Dr. Parham Full code patient requires ongoing inpatient stay for management of gonzalo requiring IV diuresis and specialist evaluation Quality Stroke Does the patient have a stroke diagnosis?: No VTE Prior VTE?: No VTE Risk Level:: Medical - moderate - high VTE Device Contraindication: Treatment Not Indicated VTE Drug Contraindication: N/A - Med Ordered
[2024-10-07 15:45] VITALS: BP 150/91; PULSE 72; RESP 16; TEMP 36.4; O2SAT 97
[2024-10-07 20:00] VITALS: BP 121/79; PULSE 76; RESP 18; TEMP 36.3; O2SAT 96
[2024-10-07 20:29] VITALS: BP 121/79; PULSE 76
[2024-10-07] MEDS: Gabapentin 100 MG CAPSULE 200 MG PO (20:29)
[2024-10-08 03:51] VITALS: BP 126/68; PULSE 80; RESP 18; TEMP 36.4; O2SAT 95
[2024-10-08 07:04] VITALS: BP 128/88; PULSE 60; RESP 14; TEMP 36.2; O2SAT 96
[2024-10-08 07:20] LABS: Prothrombin Time 34.8 SEC (10.9-12.4)
[2024-10-08 07:44] LABS: Anion Gap 20 (12-20); Blood Urea Nitrogen 98 mg/dL (9-16); Calcium 9.2 mg/dL (8.4-10.2); Carbon Dioxide 24 mmol/L (22-29); Chloride 101 mmol/L (96-108); Creatinine Clr Calc Pharmacy 12.3; Estimated Glomerular Filt Rate 10; Glucose Random 114 mg/dL (60-115); Potassium 4.9 mmol/L (3.3-5.1); Sodium 140 mmol/L (135-145)
--- NOTE | 2024-10-08 08:30 | P.PNNP_ITS ---
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 Sees Dr Garcia, Nephrology, outpatient. pt advised to go to hospital by PCP due to abnormal renal function on outpatient labs on 09/30 Nephrology consulted for GONZALO, xiomy held last creatinine on file 2.94 on 06/05, on admission 10/01 creatinine 4.38 creatinine initially improving with IV diuresis however, creatinine has been trending up BUN 100 10/07, 10/08 is 98 pt reports frequent urination in small amounts he reports feeling well and denies complaints/concerns denies shortness of breath, dysuria/difficulty emptying bladder denies other concerns/new symptoms Urine 10/01: dip with large protein, microscopy shows 11-20 RBCs, no WBCs previous urine prot/creatinine ratio Jun 2023 was 6.3 10/02 urine protein/creatinine ratio 5.5 (about baseline) CT abd/pelvis 10/02: diffuse bilateral renal atrophy. benign 1cm cyst left kidney. No hydronephrosis or inflammatory changes. 2mm and 2mm calculi of left kidney; 2mm calculus in left renal pelvis. No right sided calculi. No ereteractasis, no ureteral calculi noted. Physical Exam 2 Vital Signs: Vital Signs: Last Vital Signs Temp 97.2 F 10/08/24 07:04 Pulse 60 10/08/24 07:04 Resp 14 10/08/24 07:04 BP 128/88 10/08/24 07:04 Pulse Ox 96 10/08/24 07:04 O2 Del Method Room Air 10/08/24 07:04 BMI result Body Mass Index 31.3 Const: General: no acute distress, alert and awake Resp: Effort & Inspection: normal respiratory effort and able to speak in complete sentences Auscultation: clear to auscultation bilaterally Cardio: Jugular venous distension: no JVD Rate: regular rate Rhythm: r egular rhythm Heart sounds: S1 normal heart sound present and S2 normal heart sound present GI: Palpation (GI): Soft to palpation and nontender : General: Yes no CVA tenderness Back/Spine/Pelvis: Back: no CVA tenderness Extrem: General: Yes edema (+1 BLE pitting edema) Objective Data Labs 10/02/24 06:08 10/08/24 06:36 Labs: Laboratory Results - last 24 hr 10/02/24 10/08/24 22:00 06:36 Hold Purple Top SEE NOTE PT 34.8 H INR 3.0 H Sodium 140 Potassium 4.9 Chloride 101 Carbon Dioxide 24 Anion Gap 20 BUN 98 H Creatinine 5.46 H* Estim Creat Clear Calc 12.3 Estimated GFR 10 Random Glucose 114 Calcium 9.2 Urine Immunofixation SEE NOTE Procedures Date of Service Date of Service: 10/08/24 Assessment & Plan Assessment and plan (1) Acute kidney injury superimposed on CKD: Status: Acute (2) Proteinuria: Status: Acute (3) Hematuria: Status: Acute (4) Anemia: Status: Acute Plan Worsening renal function most likely progression of underlying renal disease given nephrotic-range proteinuria and hematuria with diffuse bialteral renal atrophy on imaging Worsening pt does not have any clinical uremic symptoms at this time, though high BUN and lack worsening creatinine concerning serum and urine immunofixation pending have discussed with patient and son that renal function is failing and may need dialysis in next few days discussed with patient we will plan for a dialysis catheter insertion for to ensure access should he need HD, pt in agreement with plan recommend hold coumadin and will plan to place permacath on 10/10 decreased lasix to 40mg IVP daily (from BID) recommend close/strict I&O monitoring, blood pressures recommend daily electrolyte and renal function monitoring Continue supportive care avoid nephrotoxic substances Will continue to follow Discussed with Dr Garcia Time Spent With Patient Time: Total time managing care of this patient today ____ minutes. Progress Note: Quality Stroke Does the patient have a stroke diagnosis?: No
[2024-10-08] MEDS: Cholecalciferol (Vitamin D3) 25 MCG TABLET PO (09:27)
[2024-10-08] MEDS: Metoprolol Tartrate 50 MG TABLET PO ×2 (09:27→20:36)
[2024-10-08] MEDS: Atorvastatin Calcium 80 MG TABLET PO (09:27)
[2024-10-08] MEDS: Furosemide 40 MG/4 ML VIAL IVPUSH (09:28)
[2024-10-08] MEDS: amLODIPine Besylate 2.5 MG TABLET PO (09:29)
[2024-10-08] MEDS: 0.9 % Sodium Chloride Flush 3 ML SYRINGE IVFLUSH ×3 (09:33→20:37)
--- NOTE | 2024-10-08 09:56 | HO.PM.IMPN ---
Subjective Subjective Date of Service: 10/08/24 Interval History: Follow-up for renal failure No overnight events No shortness a breath, no specific complaints Review of Systems Review of Systems: Yes all other systems are reviewed and are negative Constitutional Constitutional: Denies chills and Denies fever(s) ENT Ears, Nose, Mouth, and Throat: Denies dizziness Cardiovascular Cardiovascular: Denies chest pain, Denies palpitations and Denies dyspnea Respiratory Respiratory: Denies cough and Denies dyspnea Neurologic Neurologic: Denies dizziness Endocrine Endocrine: Denies palpitations Physical Exam Vital Signs: Vital Signs: Last Vital Signs Temp 97.2 F 10/08/24 07:04 Pulse 60 10/08/24 07:04 Resp 14 10/08/24 07:04 BP 128/88 10/08/24 07:04 Pulse Ox 96 10/08/24 07:04 O2 Del Method Room Air 10/08/24 07:04 BMI result Body Mass Index 31.3 Appearing in no acute distress lung sounds are clear to auscultation heart regular rate rhythm, clear S1, S2 positive bowel sounds, abdomen is soft, nontender neuro patient is alert x3, no focal deficits Objective Data Active Medications Acetaminophen (Acetaminophen 325 Mg Tablet) 650 mg PO Q6H PRN PRN Reason: Pain, Mild (Pain Scale 1-3), fever or headache Amlodipine Besylate (Amlodipine Besylate 2.5 Mg Tablet) 2.5 mg PO DAILY [facility]; Protocol Last Admin: 10/08/24 09:29 Dose: 2.5 mg Documented By: GERRI Atorvastatin Calcium (Atorvastatin Calcium 80 Mg Tablet) 80 mg PO DAILY [facility] Last Admin: 10/08/24 09:27 Dose: 80 mg Documented By: GERRI Calcium Carbonate (Calcium Carbonate 750 Mg Tab.Chew) 750 mg PO Q4H PRN PRN Reason: Heartburn Fluticasone Propionate (Fluticasone Propionate Nasal 16 Gm [place]) 1 spray NOSTRIL-B DAILY [facility] Last Admin: 10/07/24 07:56 Dose: Not Given Documented By: ELLIOT Non-Admin Reason: Patient Refused Furosemide (Furosemide 40 Mg/4 Ml Vial) 40 mg IVPUSH BID@0900,1800 [facility]; Protocol Last Admin: 10/08/24 09:28 Dose: 40 mg Documented By: GERRI Gabapentin (Gabapentin 100 Mg Capsule) 200 mg PO BEDTIME [facility] Last Admin: 10/07/24 20:29 Dose: 200 mg Documented By: CASTILMilagros Magnesium Hydroxide (Milk Of Magnesia 30 Ml Oral.Susp) 30 ml PO DAILY PRN PRN Reason: Constipation Melatonin (Melatonin 3 Mg Tablet) 6 mg PO BEDTIME PRN PRN Reason: Insomnia Metoprolol Tartrate (Metoprolol Tartrate 50 Mg Tablet) 50 mg PO BID [facility]; Protocol Last Admin: 10/08/24 09:27 Dose: 50 mg Documented By: GERRI Ondansetron HCl (Ondansetron Hcl 4 Mg/2 Ml Vial) 4 mg IVPUSH Q8H PRN PRN Reason: Nausea and Vomiting Sodium Chloride (0.9 % Sodium Chloride Flush 3 Ml Syringe) 3 ml IVFLUSH QSHIFT [facility] Last Admin: 10/08/24 09:33 Dose: 3 ml Documented By: GERRI Vitamin D (Cholecalciferol (Vitamin D3) 25 Mcg Tablet) 25 mcg PO DAILY [facility] Last Admin: 10/08/24 09:27 Dose: 25 mcg Documented By: GERRI Warfarin Sodium (Warfarin Sodium 7.5 Mg Tablet) 7.5 mg PO Mo@1800 [facility] Warfarin Sodium (Warfarin Sodium 5 Mg Tablet) 5 mg PO SuTuWeThFrSa@1800 [facility] Last Admin: 10/06/24 16:51 Dose: 5 mg Documented By: CODY Labs 10/02/24 06:08 10/08/24 06:36 Labs: Laboratory Results - last 24 hr 10/02/24 10/08/24 22:00 06:36 Hold Purple Top SEE NOTE PT 34.8 H INR 3.0 H Anion Gap 20 Estim Creat Clear Calc 12.3 Estimated GFR 10 Random Glucose 114 Calcium 9.2 Urine Immunofixation SEE NOTE Assessment and Plan (1) Acute kidney injury superimposed on CKD: Status: Acute Plan 74-year-old male with pertinent history of atrial fibrillation on Coumadin, mixed hyperlipidemia, CKD stage 3, hypertension, coronary artery disease who was sent to the emergency department by his PCP for evaluation of abnormal labs. GONZALO on CKD stage 3 initially improving with IV lasix Per nephrology - likely progression of underlying kidney disease but probable component of cardiorenal syndrome continue IV lasix 40 bid for now serum and urine immunofixation pending permacath placement for 11/21, warfarin on hold Acute hyperkalemia. Resolved due to worsening renal function. K has been up and down, normal at this time. per nephro - prn shawn for K of 5.8 or above Hypertension continue lopressor, norvasc Dyslipidemia continue Lipitor 80 mg Atrial fibrillation On digoxin, metoprolol 100 mg b.i.d. will hold digoxin due to GONZALO metoprolol 50 mg b.i.d.,( home dose 100 mg b.i.d.) hold warfarin for permacath placement on neuropathy gabapentin 200 mg at bedtime DVT prophylaxis: Coumadin on hold Attending Dr. Prater Full code patient requires ongoing inpatient stay for management of gonzalo requiring IV diuresis and specialist evaluation Quality Stroke Does the patient have a stroke diagnosis?: No VTE Prior VTE?: No VTE Risk Level:: Medical - moderate - high VTE Device Contraindication: Treatment Not Indicated VTE Drug Contraindication: N/A - Med Ordered
[2024-10-08] MEDS: Fluticasone Propionate Nasal 16 GM SPRAY 1 SPRAY NOSTRIL-B (10:50)
[2024-10-08 16:00] VITALS: BP 139/82; PULSE 66; RESP 16; TEMP 36.3; O2SAT 96
[2024-10-08 17:23] LABS: IgA 283 mg/dL (70-320); IgG 1125 mg/dL (600-1540); IgM 33 mg/dL (50-300)
[2024-10-08 19:49] VITALS: BP 136/86; PULSE 77; RESP 18; TEMP 36.5; O2SAT 95
[2024-10-08] MEDS: Gabapentin 100 MG CAPSULE 200 MG PO (20:36)
[2024-10-09 03:38] VITALS: BP 120/65; PULSE 60; RESP 18; TEMP 36.6; O2SAT 96
[2024-10-09 06:31] LABS: INTERNATIONAL NORM RATIO 2.5 (0.9-1.1); Prothrombin Time 29.2 SEC (10.9-12.4)
--- NOTE | 2024-10-09 07:46 | HO.PM.IMPN ---
Subjective Subjective Date of Service: 10/09/24 Interval History: Follow-up for renal failure No overnight events No shortness a breath, no specific complaints plan for permacath tomorrow Review of Systems Review of Systems: Yes all other systems are reviewed and are negative Constitutional Constitutional: Denies chills and Denies fever(s) ENT Ears, Nose, Mouth, and Throat: Denies dizziness Cardiovascular Cardiovascular: Denies chest pain, Denies palpitations and Denies dyspnea Respiratory Respiratory: Denies cough and Denies dyspnea Neurologic Neurologic: Denies dizziness Endocrine Endocrine: Denies palpitations Physical Exam Vital Signs: Vital Signs: Last Vital Signs Temp 97.8 F 10/09/24 03:38 Pulse 60 10/09/24 03:38 Resp 18 10/09/24 03:38 BP 120/65 10/09/24 03:38 Pulse Ox 96 10/09/24 03:38 O2 Del Method Room Air 10/09/24 03:38 BMI result Body Mass Index 31.3 Appearing in no acute distress lung sounds are clear to auscultation heart regular rate rhythm, clear S1, S2 positive bowel sounds, abdomen is soft, nontender neuro patient is alert x3, no focal deficits Objective Data Active Medications Acetaminophen (Acetaminophen 325 Mg Tablet) 650 mg PO Q6H PRN PRN Reason: Pain, Mild (Pain Scale 1-3), fever or headache Amlodipine Besylate (Amlodipine Besylate 2.5 Mg Tablet) 2.5 mg PO DAILY [facility]; Protocol Last Admin: 10/08/24 09:29 Dose: 2.5 mg Documented By: GERRI Atorvastatin Calcium (Atorvastatin Calcium 80 Mg Tablet) 80 mg PO DAILY [facility] Last Admin: 10/08/24 09:27 Dose: 80 mg Documented By: GERRI Calcium Carbonate (Calcium Carbonate 750 Mg Tab.Chew) 750 mg PO Q4H PRN PRN Reason: Heartburn Fluticasone Propionate (Fluticasone Propionate Nasal 16 Gm [place]) 1 spray NOSTRIL-B DAILY [facility] Last Admin: 10/08/24 10:50 Dose: 1 spray Documented By: GERRI Furosemide (Furosemide 40 Mg/4 Ml Vial) 40 mg IVPUSH DAILY [facility]; Protocol Gabapentin (Gabapentin 100 Mg Capsule) 200 mg PO BEDTIME [facility] Last Admin: 10/08/24 20:36 Dose: 200 mg Documented By: SCOTT Magnesium Hydroxide (Milk Of Magnesia 30 Ml Oral.Susp) 30 ml PO DAILY PRN PRN Reason: Constipation Melatonin (Melatonin 3 Mg Tablet) 6 mg PO BEDTIME PRN PRN Reason: Insomnia Metoprolol Tartrate (Metoprolol Tartrate 50 Mg Tablet) 50 mg PO BID [facility]; Protocol Last Admin: 10/08/24 20:36 Dose: 50 mg Documented By: SCOTT Ondansetron HCl (Ondansetron Hcl 4 Mg/2 Ml Vial) 4 mg IVPUSH Q8H PRN PRN Reason: Nausea and Vomiting Sodium Chloride (0.9 % Sodium Chloride Flush 3 Ml Syringe) 3 ml IVFLUSH QSHIFT [facility] Last Admin: 10/08/24 20:37 Dose: 3 ml Documented By: SCOTT Vitamin D (Cholecalciferol (Vitamin D3) 25 Mcg Tablet) 25 mcg PO DAILY [facility] Last Admin: 10/08/24 09:27 Dose: 25 mcg Documented By: GERRI Warfarin Sodium (Warfarin Sodium 7.5 Mg Tablet) 7.5 mg PO Mo@1800 [facility] Warfarin Sodium (Warfarin Sodium 5 Mg Tablet) 5 mg PO SuTuWeThFrSa@1800 [facility] Last Admin: 10/06/24 16:51 Dose: 5 mg Documented By: CODY Labs 10/02/24 06:08 10/08/24 06:36 Labs: Laboratory Results - last 24 hr 10/03/24 10/09/24 05:48 05:18 Hold Purple Top SEE NOTE PT 29.2 H INR 2.5 H IgG Total 1125 IgA Total 283 IgM 33 L ANGELO Interpretation SEE NOTE Assessment and Plan (1) Acute kidney injury superimposed on CKD: Status: Acute Plan 74-year-old male with pertinent history of atrial fibrillation on Coumadin, mixed hyperlipidemia, CKD stage 3, hypertension, coronary artery disease who was sent to the emergency department by his PCP for evaluation of abnormal labs. GONZALO on CKD stage 3 initially improving with IV lasix Per nephrology - likely progression of underlying kidney disease but probable component of cardiorenal syndrome continue IV lasix 40 daily serum and urine immunofixation done permacath placement for 10/10, warfarin on hold, npo after midnight Acute hyperkalemia. Resolved due to worsening renal function. K has been up and down, normal at this time. per nephro - prn lokelma for K of 5.8 or above Hypertension continue lopressor, norvasc Dyslipidemia continue Lipitor 80 mg Atrial fibrillation On digoxin, metoprolol 100 mg b.i.d. will hold digoxin due to GONZALO metoprolol 50 mg b.i.d.,( home dose 100 mg b.i.d.) hold warfarin for permacath placement on neuropathy gabapentin 200 mg at bedtime DVT prophylaxis: Coumadin on hold Attending Dr. Prater Full code patient requires ongoing inpatient stay for management of gonzalo requiring IV diuresis and specialist evaluation Quality Stroke Does the patient have a stroke diagnosis?: No VTE Prior VTE?: No VTE Risk Level:: Medical - moderate - high VTE Device Contraindication: Treatment Not Indicated VTE Drug Contraindication: N/A - Med Ordered
[2024-10-09 08:00] VITALS: BP 128/86; PULSE 59; RESP 16; TEMP 36.3; O2SAT 98
[2024-10-09 08:31] LABS: Anion Gap 18 (12-20); Blood Urea Nitrogen 105 mg/dL (9-16); Calcium 8.6 mg/dL (8.4-10.2); Carbon Dioxide 19 mmol/L (22-29); Chloride 104 mmol/L (96-108); Estimated Glomerular Filt Rate 11; Glucose Random 123 mg/dL (60-115); Potassium 4.3 mmol/L (3.3-5.1); Sodium 137 mmol/L (135-145)
[2024-10-09] MEDS: Metoprolol Tartrate 50 MG TABLET PO ×2 (08:46→21:08)
[2024-10-09] MEDS: amLODIPine Besylate 2.5 MG TABLET PO (08:46)
[2024-10-09] MEDS: Atorvastatin Calcium 80 MG TABLET PO (08:46)
[2024-10-09] MEDS: Cholecalciferol (Vitamin D3) 25 MCG TABLET PO (08:47)
[2024-10-09] MEDS: 0.9 % Sodium Chloride Flush 3 ML SYRINGE IVFLUSH ×3 (08:48→21:08)
[2024-10-09] MEDS: Furosemide 40 MG/4 ML VIAL IVPUSH (08:49)
[2024-10-09] MEDS: Fluticasone Propionate Nasal 16 GM SPRAY 1 SPRAY NOSTRIL-B (09:10)
--- NOTE | 2024-10-09 10:55 | P.PNNP_ITS ---
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 Sees Dr Garcia, Nephrology, outpatient. pt advised to go to hospital by PCP due to abnormal renal function on outpatient labs on 09/30 Nephrology consulted for GONZALO, xiomy held last creatinine on file 2.94 on 06/05, on admission 10/01 creatinine 4.38 creatinine initially improving with IV diuresis however, creatinine has been trending up BUN 100 10/07, 10/08 was 98, 10/09 is 105 pt reports frequent urination in small amounts - UOP 3,000mL/last 24 hours he reports feeling well and denies complaints/concerns denies shortness of breath, dysuria/difficulty emptying bladder denies nausea, vomiting, itching, tremors/abnormal movements, muscle cramping denies other concerns/new symptoms Urine 10/01: dip with large protein, microscopy shows 11-20 RBCs, no WBCs previous urine prot/creatinine ratio Jun 2023 was 6.3 10/02 urine protein/creatinine ratio 5.5 (about baseline) CT abd/pelvis 10/02: diffuse bilateral renal atrophy. benign 1cm cyst left kidney. No hydronephrosis or inflammatory changes. 2mm and 2mm calculi of left kidney; 2mm calculus in left renal pelvis. No right sided calculi. No ereteractasis, no ureteral calculi noted. Physical Exam 2 Vital Signs: Vital Signs: Last Vital Signs Temp 97.3 F 10/09/24 08:00 Pulse 59 10/09/24 08:00 Resp 16 10/09/24 08:00 BP 128/86 10/09/24 08:00 Pulse Ox 98 10/09/24 08:00 O2 Del Method Room Air 10/09/24 08:00 BMI result Body Mass Index 31.3 Const: General: no acute distress, alert and awake Resp: Effort & Inspection: normal respiratory effort and able to speak in complete sentences Auscultation: clear to auscultation bilaterally Cardio: Jugular venous distension: no JVD Rate: regular rate Rhythm: r egular rhythm Heart sounds: S1 normal heart sound present and S2 normal heart sound present GI: Palpation (GI): Soft to palpation and nontender : General: Yes no CVA tenderness Back/Spine/Pelvis: Back: no CVA tenderness Extrem: General: Yes edema (+1 BLE pitting edema) Objective Data Labs 10/02/24 06:08 10/09/24 07:48 Labs: Laboratory Results - last 24 hr 10/03/24 10/09/24 10/09/24 05:48 05:18 07:48 Hold Purple Top SEE NOTE PT 29.2 H INR 2.5 H Sodium 137 Potassium 4.3 Chloride 104 Carbon Dioxide 19 L Anion Gap 18 BUN 105 H Creatinine 5.17 H* Estim Creat Clear Calc 13.0 Estimated GFR 11 Random Glucose 123 H Calcium 8.6 D IgG Total 1125 IgA Total 283 IgM 33 L ANGELO Interpretation SEE NOTE Procedures Date of Service Date of Service: 10/09/24 Assessment & Plan Assessment and plan (1) Acute kidney injury superimposed on CKD: Status: Acute (2) Proteinuria: Status: Acute (3) Hematuria: Status: Acute (4) Anemia: Status: Acute Plan Worsening renal function most likely progression of underlying renal disease given nephrotic-range proteinuria and hematuria with diffuse bilateral renal atrophy on imaging Stable over last two days pt does not have any clinical uremic symptoms at this time GFR remains borderline for HD, will get 24 hour urine creatinine collection to better evaluate true filtration rate plan to discharge home and follow up in office in 2 weeks if filtration rate is >10%; if not, will re-evaluate plan going forward will hold off on permcath placement until results of 24 hour urine collection Discussed plan in detail with patient and family today- discussed may still need HD but need further evaluation above, they verbalize understanding and are in agreement with plan serum and urine immunofixation negative for monoclonal proteins recommend continuing to hold coumadin until 24 hour urine results back, as may still need permcath placement depending on results continue lasix 40mg IVP daily recommend close/strict I&O monitoring, blood pressures recommend daily electrolyte and renal function monitoring Continue supportive care avoid nephrotoxic substances Will continue to follow Discussed with Dr Perez Time Spent With Patient Time: Total time managing care of this patient today ____ minutes. Progress Note: Quality Stroke Does the patient have a stroke diagnosis?: No
--- NOTE | 2024-10-09 13:03 | MHC.CM.PN ---
Per MD rounds patient not medically cleared for dc. Plan for permacath tomorrow, potential need for HD. [facility] following. CM will continue to follow.
[2024-10-09 15:44] VITALS: BP 136/80; PULSE 63; RESP 16; TEMP 36.5; O2SAT 96
[2024-10-09 19:12] VITALS: BP 132/68; PULSE 69; RESP 18; TEMP 36.7; O2SAT 97
[2024-10-09] MEDS: Gabapentin 100 MG CAPSULE 200 MG PO (21:08)
[2024-10-10 03:12] VITALS: BP 139/71; PULSE 63; RESP 18; TEMP 36.7; O2SAT 97
[2024-10-10 07:32] VITALS: BP 124/73; PULSE 63; RESP 16; TEMP 36.8; O2SAT 96
[2024-10-10 07:32] LABS: INTERNATIONAL NORM RATIO 1.7 (0.9-1.1); Prothrombin Time 20.4 SEC (10.9-12.4)
[2024-10-10 08:06] LABS: Anion Gap 20 (12-20); Blood Urea Nitrogen 104 mg/dL (9-16); Calcium 8.5 mg/dL (8.4-10.2); Carbon Dioxide 20 mmol/L (22-29); Chloride 103 mmol/L (96-108); Estimated Glomerular Filt Rate 11; Glucose Random 114 mg/dL (60-115); Potassium 4.5 mmol/L (3.3-5.1); Sodium 138 mmol/L (135-145)
[2024-10-10] MEDS: Atorvastatin Calcium 80 MG TABLET PO (08:29)
[2024-10-10] MEDS: Fluticasone Propionate Nasal 16 GM SPRAY 1 SPRAY NOSTRIL-B (08:29)
[2024-10-10] MEDS: Metoprolol Tartrate 50 MG TABLET PO ×2 (08:29→20:44)
[2024-10-10] MEDS: Cholecalciferol (Vitamin D3) 25 MCG TABLET PO (08:30)
[2024-10-10] MEDS: amLODIPine Besylate 2.5 MG TABLET PO (08:30)
[2024-10-10] MEDS: Furosemide 40 MG/4 ML VIAL IVPUSH (08:30)
[2024-10-10] MEDS: 0.9 % Sodium Chloride Flush 3 ML SYRINGE IVFLUSH ×3 (08:33→20:44)
--- NOTE | 2024-10-10 09:50 | P.PNNP_ITS ---
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 Sees Dr Garcia, Nephrology, outpatient. pt advised to go to hospital by PCP due to abnormal renal function on outpatient labs on 09/30 Nephrology consulted for GONZALO, xiomy held last creatinine on file 2.94 on 06/05, on admission 10/01 creatinine 4.38 creatinine initially improving with IV diuresis however, creatinine had been trending up, now stable, today 5.15 BUN 100 10/07, 10/08 was 98, 10/09 is 105, 10/10 is 104 pt reports frequent urination in small amounts - UOP 1200mL/last 24 hours he reports feeling well and denies complaints/concerns denies shortness of breath, dysuria/difficulty emptying bladder denies nausea, vomiting, itching, tremors/abnormal movements, muscle cramping denies other concerns/new symptoms Urine 10/01: dip with large protein, microscopy shows 11-20 RBCs, no WBCs previous urine prot/creatinine ratio Jun 2023 was 6.3 10/02 urine protein/creatinine ratio 5.5 (about baseline) CT abd/pelvis 10/02: diffuse bilateral renal atrophy. benign 1cm cyst left kidney. No hydronephrosis or inflammatory changes. 2mm and 2mm calculi of left kidney; 2mm calculus in left renal pelvis. No right sided calculi. No ereteractasis, no ureteral calculi noted. Physical Exam 2 Vital Signs: Vital Signs: Last Vital Signs Temp 98.2 F 10/10/24 07:32 Pulse 63 10/10/24 07:32 Resp 16 10/10/24 07:32 BP 124/73 10/10/24 07:32 Pulse Ox 96 10/10/24 07:32 O2 Del Method Room Air 10/10/24 07:32 BMI result Body Mass Index 31.3 Const: General: no acute distress, alert and awake Resp: Effort & Inspection: normal respiratory effort and able to speak in complete sentences Auscultation: clear to auscultation bilaterally Cardio: Jugular venous distension: no JVD Rate: regular rate Rhythm: r egular rhythm Heart sounds: S1 normal heart sound present and S2 normal heart sound present GI: Palpation (GI): Soft to palpation and nontender : General: Yes no CVA tenderness Back/Spine/Pelvis: Back: no CVA tenderness Extrem: General: Yes edema (+1 BLE pitting edema) Objective Data Labs 10/02/24 06:08 10/10/24 05:29 Labs: Laboratory Results - last 24 hr 10/10/24 05:29 PT 20.4 H D INR 1.7 H Sodium 138 Potassium 4.5 Chloride 103 Carbon Dioxide 20 L Anion Gap 20 BUN 104 H Creatinine 5.15 H* Estim Creat Clear Calc 13.0 Estimated GFR 11 Random Glucose 114 Calcium 8.5 Procedures Date of Service Date of Service: 10/10/24 Assessment & Plan Assessment and plan (1) Acute kidney injury superimposed on CKD: Status: Acute (2) Proteinuria: Status: Acute (3) Hematuria: Status: Acute (4) Anemia: Status: Acute Plan Decline in renal function most likely progression of underlying renal disease given nephrotic-range proteinuria and hematuria with diffuse bilateral renal atrophy on imaging Stable over last few days pt does not have any clinical uremic symptoms at this time GFR remains borderline for HD, 24 hour urine creatinine collection being collected today to better evaluate true filtration rate plan to discharge home and follow up in office in 2 weeks if filtration rate is >10%; if not, will re-evaluate plan going forward will hold off on permcath placement until results of 24 hour urine collection; pt and family aware of plan serum and urine immunofixation negative for monoclonal proteins recommend continuing to hold coumadin until 24 hour urine results back, as will reassess need for permcath palcement once 24h urine results are back continue lasix 40mg IVP daily recommend close/strict I&O monitoring, blood pressures recommend daily electrolyte and renal function monitoring Continue supportive care avoid nephrotoxic substances Will continue to follow Discussed with Dr Perez Time Spent With Patient Time: Total time managing care of this patient today ____ minutes. Progress Note: Quality Stroke Does the patient have a stroke diagnosis?: No
[2024-10-10 15:07] VITALS: BP 141/77; PULSE 60; RESP 17; TEMP 36.2; O2SAT 97
--- NOTE | 2024-10-10 16:24 | P.PNIM_ITS ---
Subjective Subjective Date of Service: 10/10/24 Interval History: seen and examined this morning follow up for GONZALO no overnight events no current complaints Review of Systems Review of Systems: Yes all other systems are reviewed and are negative Constitutional Constitutional: Denies chills and Denies fever(s) Cardiovascular Cardiovascular: Denies chest pain and Denies dyspnea Respiratory Respiratory: Denies dyspnea Gastrointestinal Gastrointestinal: Denies abdominal pain Physical Exam 2 Vital Signs: Vital Signs: Last Vital Signs Temp 97.2 F 10/10/24 15:07 Pulse 60 10/10/24 15:07 Resp 17 10/10/24 15:07 BP 141/77 H 10/10/24 15:07 Pulse Ox 97 10/10/24 15:07 O2 Del Method Room Air 10/10/24 15:07 BMI result Body Mass Index 31.3 Const: General: cooperative, comfortable, no acute distress, well developed, alert and awake Nutritional Appearance: average body habitus O rientation/consciousness: patient oriented x3 Resp: Effort & Inspection: normal respiratory effort, able to speak in complete sentences, no respiratory distress and no use of accessory muscles A uscultation: clear to auscultation bilaterally GI: Inspection: No distended Palpation (GI): Soft to palpation and nontender Neuro: General: patient oriented x3, moves all extremities and CN's II-XI intact bilaterally Extrem: Other: b/l leg edema, 1+ Objective Data Active Medications Acetaminophen (Acetaminophen 325 Mg Tablet) 650 mg PO Q6H PRN PRN Reason: Pain, Mild (Pain Scale 1-3), fever or headache Amlodipine Besylate (Amlodipine Besylate 2.5 Mg Tablet) 2.5 mg PO DAILY [facility]; Protocol Last Admin: 10/10/24 08:30 Dose: 2.5 mg Documented By: AMANDA Atorvastatin Calcium (Atorvastatin Calcium 80 Mg Tablet) 80 mg PO DAILY [facility] Last Admin: 10/10/24 08:29 Dose: 80 mg Documented By: AMANDA Calcium Carbonate (Calcium Carbonate 750 Mg Tab.Chew) 750 mg PO Q4H PRN PRN Reason: Heartburn Fluticasone Propionate (Fluticasone Propionate Nasal 16 Gm [place]) 1 spray NOSTRIL-B DAILY [facility] Last Admin: 10/10/24 08:29 Dose: 1 spray Documented By: AMANDA Furosemide (Furosemide 40 Mg/4 Ml Vial) 40 mg IVPUSH DAILY [facility]; Protocol Last Admin: 10/10/24 08:30 Dose: 40 mg Documented By: AMANDA Gabapentin (Gabapentin 100 Mg Capsule) 200 mg PO BEDTIME [facility] Last Admin: 10/09/24 21:08 Dose: 200 mg Documented By: SCOTT Magnesium Hydroxide (Milk Of Magnesia 30 Ml Oral.Susp) 30 ml PO DAILY PRN PRN Reason: Constipation Melatonin (Melatonin 3 Mg Tablet) 6 mg PO BEDTIME PRN PRN Reason: Insomnia Metoprolol Tartrate (Metoprolol Tartrate 50 Mg Tablet) 50 mg PO BID [facility]; Protocol Last Admin: 10/10/24 08:29 Dose: 50 mg Documented By: AMANDA Ondansetron HCl (Ondansetron Hcl 4 Mg/2 Ml Vial) 4 mg IVPUSH Q8H PRN PRN Reason: Nausea and Vomiting Sodium Chloride (0.9 % Sodium Chloride Flush 3 Ml Syringe) 3 ml IVFLUSH QSHIFT [facility] Last Admin: 10/10/24 15:30 Dose: 3 ml Documented By: JAH Vitamin D (Cholecalciferol (Vitamin D3) 25 Mcg Tablet) 25 mcg PO DAILY [facility] Last Admin: 10/10/24 08:30 Dose: 25 mcg Documented By: AMANDA Warfarin Sodium (Warfarin Sodium 7.5 Mg Tablet) 7.5 mg PO Mo@1800 [facility] Warfarin Sodium (Warfarin Sodium 5 Mg Tablet) 5 mg PO SuTuWeThFrSa@1800 [facility] Last Admin: 10/06/24 16:51 Dose: 5 mg Documented By: CODY Labs 10/02/24 06:08 10/10/24 05:29 Labs: Laboratory Results - last 24 hr 10/10/24 05:29 PT 20.4 H D INR 1.7 H Anion Gap 20 Estim Creat Clear Calc 13.0 Estimated GFR 11 Random Glucose 114 Calcium 8.5 Assessment and Plan (1) Acute kidney injury superimposed on CKD: Status: Acute Plan 74-year-old male with pertinent history of atrial fibrillation on Coumadin, mixed hyperlipidemia, CKD stage 3, hypertension, coronary artery disease who was sent to the emergency department by his PCP for evaluation of abnormal labs. GONZALO on CKD stage 3 initially improving with IV lasix Per nephrology - likely progression of underlying kidney disease but probable component of cardiorenal syndrome continue IV lasix 40 daily serum and urine immunofixation done negative for monoclonal proteins no signs of uremia plan for 24 hour urine and then reassess need for permcath Acute hyperkalemia. Resolved due to worsening renal function. K has been up and down, normal at this time. per nephro - prn shawn for K of 5.8 or above Hypertension continue lopressor, norvasc Dyslipidemia continue Lipitor 80 mg Atrial fibrillation On digoxin, metoprolol 100 mg b.i.d. will hold digoxin due to GONZALO metoprolol 50 mg b.i.d.,( home dose 100 mg b.i.d.) hold warfarin for possible need for permcath neuropathy gabapentin 200 mg at bedtime DVT prophylaxis: Coumadin on hold Attending Dr. Prater Full code patient requires ongoing inpatient stay for management of gonzalo requiring IV diuresis and specialist evaluation Quality Stroke Does the patient have a stroke diagnosis?: No VTE Prior VTE?: No VTE Risk Level:: Medical - moderate - high VTE Device Contraindication: Treatment Not Indicated VTE Drug Contraindication: N/A - Med Ordered
[2024-10-10 19:52] VITALS: BP 132/67; PULSE 62; RESP 18; TEMP 36.4; O2SAT 96
[2024-10-10] MEDS: Gabapentin 100 MG CAPSULE 200 MG PO (20:44)
[2024-10-11 04:00] VITALS: BP 115/66; PULSE 65; RESP 16; TEMP 37.2; O2SAT 95
[2024-10-11 06:52] LABS: Creatinine, mg/dL 45.41; Total Volume 24 Hour Urine 2250 mL
[2024-10-11 07:02] LABS: INTERNATIONAL NORM RATIO 1.4 (0.9-1.1)
[2024-10-11 07:09] LABS: Creatinine (CrCl) 5.15 mg/dL (0.5-1.4); Creatinine Clearance 13.7 mL/min (85-125)
[2024-10-11 07:34] VITALS: BP 139/70; PULSE 55; RESP 16; TEMP 36.1; O2SAT 97
[2024-10-11] MEDS: amLODIPine Besylate 2.5 MG TABLET PO (08:06)
[2024-10-11] MEDS: Cholecalciferol (Vitamin D3) 25 MCG TABLET PO (08:06)
[2024-10-11] MEDS: Fluticasone Propionate Nasal 16 GM SPRAY 1 SPRAY NOSTRIL-B (08:06)
[2024-10-11] MEDS: 0.9 % Sodium Chloride Flush 3 ML SYRINGE IVFLUSH (08:06)
[2024-10-11] MEDS: Furosemide 40 MG/4 ML VIAL IVPUSH (08:06)
[2024-10-11] MEDS: Atorvastatin Calcium 80 MG TABLET PO (08:06)
--- NOTE | 2024-10-11 08:15 | P.PNNP_ITS ---
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 Sees Dr Garcia, Nephrology, outpatient. presented due to abnormal renal function on outpatient labs on 09/30 Nephrology consulted for GONZALO, xiomy held last creatinine on file 2.94 on 06/05, on admission 10/01 creatinine 4.38 creatinine initially improving with IV diuresis however, creatinine had been trending up, now stable, 10/10 and 10/11 creatinine 5.15 BUN 100 10/07, 10/08 was 98, 10/09 105, 10/10 104 pt reports frequent urination in small amounts - UOP 1450mL/last 24 hours he reports feeling well and denies complaints/concerns denies shortness of breath, dysuria/difficulty emptying bladder denies nausea, vomiting, itching, tremors/abnormal movements, muscle cramping denies other concerns/new symptoms Urine 10/01: dip with large protein, microscopy shows 11-20 RBCs, no WBCs previous urine prot/creatinine ratio Jun 2023 was 6.3 10/02 urine protein/creatinine ratio 5.5 (about baseline) CT abd/pelvis 10/02: diffuse bilateral renal atrophy. benign 1cm cyst left kidney. No hydronephrosis or inflammatory changes. 2mm and 2mm calculi of left kidney; 2mm calculus in left renal pelvis. No right sided calculi. No ereteractasis, no ureteral calculi noted. Physical Exam 2 Vital Signs: Vital Signs: Last Vital Signs Temp 97.0 F 10/11/24 07:34 Pulse 55 10/11/24 07:34 Resp 16 10/11/24 07:34 BP 139/70 10/11/24 07:34 Pulse Ox 97 10/11/24 07:34 O2 Del Method Room Air 10/11/24 07:34 BMI result Body Mass Index 31.3 Const: General: no acute distress, alert and awake Resp: Effort & Inspection: normal respiratory effort and able to speak in complete sentences Auscultation: clear to auscultation bilaterally Cardio: Jugular venous distension: no JVD Rate: regular rate Rhythm: r egular rhythm Heart sounds: S1 normal heart sound present and S2 normal heart sound present GI: Palpation (GI): Soft to palpation and nontender : General: Yes no CVA tenderness Back/Spine/Pelvis: Back: no CVA tenderness Extrem: General: Yes edema (+1 BLE pitting edema) Objective Data Labs 10/02/24 06:08 10/11/24 06:03 Labs: Laboratory Results - last 24 hr 10/11/24 10/11/24 05:40 06:03 Hold Purple Top SEE NOTE PT 16.0 H D INR 1.4 H Creatinine 5.15 H* Ur 24 Hour Volume 2250 Ur Creatinine mg/dL 45.41 Ur Creatinine 24 Hour 1.0 Creat Clearance 24 Hr 13.7 L Procedures Date of Service Date of Service: 10/11/24 Assessment & Plan Assessment and plan (1) Acute kidney injury superimposed on CKD: Status: Acute (2) Proteinuria: Status: Acute (3) Hematuria: Status: Acute (4) Anemia: Status: Acute Plan Decline in renal function most likely progression of underlying renal disease given nephrotic-range proteinuria and hematuria with diffuse bilateral renal atrophy on imaging Renal function is stable pt does not have any clinical uremic symptoms at this time 24 hour creatinine clearance 13.7, ok to discharge from renal standpoint today since cr clearance above 10 and renal function stable, pt clinically stable may switch to lasix 40mg PO daily for discharge (currently 40mg IVP lasix daily) he will follow up with nephrology in the office in 2 weeks, advised to call office with questions or concerns in the meantime Discussed with Dr Perez Time Spent With Patient Time: Total time managing care of this patient today ____ minutes. Progress Note: Quality Stroke Does the patient have a stroke diagnosis?: No
--- NOTE | 2024-10-11 10:28 | MHC.CM.PN ---
Per MD rounds patient medically cleared for dc home self care. Son will provide transport. IMM delivered.
--- NOTE | 2024-10-11 11:40 | P.DS_ITS ---
DS: Providers Provider Date of Service: 10/11/24 Date of admission: 10/02/24 01:16 Date of discharge: 10/11/24 Primary care physician: Preet An PA-C Consults: 10/02/24 08:13 Consult to Nephrology Routine Consulting Provider: [facility] Reason for consultation: gonzalo on ckd Has provider been notified: No Attending physician on discharge: Jitendra Prater Discharging clinician: Jaqui Doran DS: Diagnosis Discharge Diagnosis (1) Acute kidney injury superimposed on CKD: Status: Acute (2) Proteinuria: Status: Acute (3) Hematuria: Status: Acute (4) Anemia: Status: Acute DS: Summary Hospital Course Hospital Course: From H&P on the day of admission This is a 74-year-old male with pertinent history of atrial fibrillation on Coumadin, mixed hyperlipidemia, CKD stage 3, hypertension, coronary artery disease who was sent to the emergency department by his PCP for evaluation of abnormal labs. Patient states he got blood work today and he was told to go to the ER as his kidney function was elevated. Patient was initiated on furosemide 2 weeks ago by his pressure testing technician for lower extremity edema. He denies any complaints at the time of my evaluation. No shortness of breath. No vomiting or diarrhea. Admits adequate p.o. intake. Has been compliant with his medications. Previously had black-colored stool about a month and a half ago which has resolved. Had stool testing done at PCP's office which was okay. No fever, chills, chest pain, palpitations, shortness of breath, abdominal pain, changes in urinary or bowel habits. History obtained with the help of official court interpreter In the emergency department, creatinine found to be 4.58 and patient was resuscitated with IV crystalloids. GONZALO on CKD stage 3 initially improving with IV lasix. Per nephrology - likely progression of underlying kidney disease but probable component of cardiorenal syndrome. Diurese and overall net negative. had 24 hour urine collection. 24 hour creatinine clearance 13.7. Renal function is stable. pt does not have any clinical uremic symptoms at this time. plan to d/c with 40 mg po lasix and follow up with nephrology in two weeks. Acute hyperkalemia. Resolved due to worsening renal function. K has been up and down, normal at this time. has been within normal range for the past several days Atrial fibrillation On digoxin, metoprolol 100 mg b.i.d. digoxin stopped due to GONZALO metoprolol decreased to 50 mg b.i.d.,( home dose 100 mg b.i.d.). Coumadin was initially held due to need for possible PermCath placement. Can be resumed. Call to schedule follow-up appointment at [facility] for INR monitoring Time Attestation Discharge Coordination Time (in mins): 36 Quality: Safe Use of Opioids Does Pt have an Active Cancer Diagnosis on the Problem List?: No Quality: Stroke Does the patient have a stroke diagnosis?: No Physical Exam Vital Signs: Vital Signs: Last Vital Signs Temp 97.0 F 10/11/24 07:34 Pulse 55 10/11/24 07:34 Resp 16 10/11/24 07:34 BP 139/70 10/11/24 07:34 Pulse Ox 97 10/11/24 07:34 O2 Del Method Room Air 10/11/24 07:34 BMI result Body Mass Index 31.3 Const: General: cooperative, comfortable, no acute distress, well developed, alert and awake Nutritional Appearance: average body habitus Orientation/consciousness: patient oriented x3 Resp: Effort & Inspection: normal respiratory effort, able to speak in complete sentences, no respiratory distress and no use of accessory muscles Auscultation: clear to auscultation bilaterally GI: Inspection: No distended Palpation (GI): Soft to palpation and nontender Neuro: General: patient oriented x3, moves all extremities and CN's II-XI intact bilaterally Extrem: Other: b/l leg edema, 1+ DS: Data Data Completed and Pending Labs on day of discharge: Laboratory Results - last 24 hr 10/11/24 10/11/24 05:40 06:03 Hold Purple Top SEE NOTE PT 16.0 H D INR 1.4 H Creatinine 5.15 H* Ur 24 Hour Volume 2250 Ur Creatinine mg/dL 45.41 Ur Creatinine 24 Hour 1.0 Creat Clearance 24 Hr 13.7 L Discharge Plan Discharge Anticipated Discharge Date/Time: 10/11/24 11:45 Patient Disposition: Home, Self-Care Discharge Diagnosis: GONZALO on CKD3 hyperkalemia - resolved Referrals: Preet An PA-C [Primary Care Provider] - 1 Week Osiel Perez MD [Physician] - 2 Weeks Discharge Medications: New metoprolol tartrate 50 mg Tablet 50 mg PO BID 90 Days Qty: 180 0RF Protocol: Hold for SBP/HR < HOLD for SBP < : 90 HOLD for HR < : 60 furosemide [Lasix] 40 mg tablet 40 mg PO QAM 90 Days Qty: 90 0RF Continued gabapentin 100 mg capsule 200 mg PO BEDTIME 30 Days Qty: 60 3RF Rx Instructions: 2 capsules amlodipine 2.5 mg tablet 2.5 mg PO DAILY Qty: 90 4RF atorvastatin 80 mg tablet 80 mg PO QAM Qty: 90 3RF warfarin 5 mg tablet 7.5 mg PO MO warfarin 5 mg tablet 5 mg PO SUTUWETHFRSA Protocol: Dose Management Condition: Monday (Week One) Dose/Route: 5 mg Instruction: 1 x 5 mg tablet Condition: Monday Dose/Route: 5 mg Instruction: 1 x 5 mg tablet Condition: Monday Dose/Route: 5 mg Instruction: 1 x 5 mg tablet Condition: Monday Dose/Route: 5 mg Instruction: 1 x 5 mg tablet Condition: Dose/Route: 5 mg Instruction: 1 x 5 mg tablet Condition: Monday Dose/Route: 5 mg Instruction: 1 x 5 mg tablet Condition: Monday Dose/Route: 5 mg Instruction: 1 x 5 mg tablet Condition: Monday (Week Two) Dose/Route: 5 mg Instruction: 1 x 5 mg tablet Condition: Monday Dose/Route: 7.5 mg Instruction: 1.5 x 5 mg tablets Condition: Monday Dose/Route: 5 mg Instruction: 1 x 5 mg tablet Condition: Monday Dose/Route: 5 mg Instruction: 1 x 5 mg tablet Condition: Dose/Route: 5 mg Instruction: 1 x 5 mg tablet Condition: Monday Dose/Route: 5 mg Instruction: 1 x 5 mg tablet Condition: Monday Dose/Route: 5 mg Instruction: 1 x 5 mg tablet Protocol Text: Adjustment Start Date: Monday09/23/24 INR Value: 3.2 INR Date: 09/23/24 Recheck Date: 10/07/24 Additional Instructions: take 5mg today then cont reg dosing eat a green today meclizine 25 mg tablet 25 mg PO TID PRN (Reason: dizziness) 10 Days Qty: 30 0RF Rx Instructions: pt states he takes one every morning simethicone 180 mg capsule 180 mg PO QID 30 Days Qty: 120 3RF Rx Instructions: after meals fluticasone propionate 50 mcg/actuation spray,suspension 1 spray intranasal DAILY 30 Days Qty: 16 1RF febuxostat [Uloric] 40 mg tablet 40 mg PO DAILY Qty: 30 6RF cholecalciferol (vitamin D3) 25 mcg (1,000 unit) capsule 25 mcg PO DAILY Qty: 90 0RF Discontinued metoprolol tartrate 100 mg tablet 100 mg PO BID 90 Days Qty: 180 3RF furosemide [Lasix] 20 mg tablet 20 mg PO DAILY Qty: 30 0RF digoxin 125 mcg (0.125 mg) tablet 125 mcg PO QAM Qty: 90 3RF No Action (DME) compression socks, large Misc See Rx Instructions .Route Qty: 2 0RF Rx Instructions: As directed Discharge Orders: Discharge Order (Routine); Ordered 10/11/24 Ordered By: Jaqui Doran Diet: Low salt diet Activity on Discharge: As tolerated Stand Alone Forms: Patient Portal Discharge page Print Language: Icelandic Care Plan Goals: see below Health Concerns: progression of CKD Plan of Treatment: Dose of Lasix has been increased to 40 mg daily Stopped taking digoxin Dose of Lopressor has been decreased Call to schedule follow-up appointment with Nephrology in 2 weeks call to schedule appointment at coumadin clinic to have INR checked early next week Assessment: see discharge summary
== END 2024-10-11 12:12 | disposition home or self-care (01) | DRG 683 ==
LOC: HO.ED 10-02 01:01 → HO.EDOVER 10-02 01:23 → HO.S3 10-02 19:07
PROVIDERS: Hospitalist; Nurse Practitioner Family; Admitting Provider Student in an Organized Health Care Education/Training Program; Emergency Provider Emergency Medicine; PCP Physician Assistant; Visit Provider Physician Assistant Medical
DX: I13.10 Hypertensive heart and chronic kidney disease without heart failure, with stage 1 through stage 4 chronic kidney disease, or unspecified chronic kidney disease (principal); N12 Tubulo-interstitial nephritis, not specified as acute or chronic; N17.9 Acute kidney failure, unspecified; E78.2 Mixed hyperlipidemia; I48.0 Paroxysmal atrial fibrillation; R31.21 Asymptomatic microscopic hematuria; D63.1 Anemia in chronic kidney disease; N20.0 Calculus of kidney; N28.1 Cyst of kidney, acquired; N40.0 Benign prostatic hyperplasia without lower urinary tract symptoms; T50.1X5A Adverse effect of loop [high-ceiling] diuretics, initial encounter; E87.5 Hyperkalemia; G62.9 Polyneuropathy, unspecified; N18.31 Chronic kidney disease, stage 3a; I25.10 Atherosclerotic heart disease of native coronary artery without angina pectoris; Z87.891 Personal history of nicotine dependence; Z79.01 Long term (current) use of anticoagulants; Z79.51 Long term (current) use of inhaled steroids; Z79.899 Other long term (current) drug therapy
CPT/HCPCS: 36415; 74176; 80048; 80053; 81001; 82570; 82575; 82784; 83970; 84156; 84484; 84550; 85025; 85610; 86334; 86335; 93005; 99285; J1940

== ENCOUNTER → 2024-10-01 22:21 | Outpatient (BNV) | payer OTHER, SELFPAY | PROVIDERS: Admitting Provider Student in an Organized Health Care Education/Training Program; Emergency Provider Emergency Medicine; PCP Physician Assistant; Visit Provider Internal Medicine Cardiovascular Disease | DX: R94.31 Abnormal electrocardiogram [ECG] [EKG] (principal) | CPT/HCPCS: 93010 ==

== ENCOUNTER → 2024-10-02 01:16 | Outpatient (BNV) | payer OTHER, SELFPAY | PROVIDERS: Admitting Provider Student in an Organized Health Care Education/Training Program; Emergency Provider Emergency Medicine; PCP Physician Assistant; Visit Provider Student in an Organized Health Care Education/Training Program | DX: N17.9 Acute kidney failure, unspecified (principal); N18.30 Chronic kidney disease, stage 3 unspecified | CPT/HCPCS: 99222; 99232; 99239; 99499 ==

== ENCOUNTER → 2024-10-02 01:16 | Outpatient (BNV) | payer OTHER, SELFPAY | PROVIDERS: Admitting Provider Student in an Organized Health Care Education/Training Program; Emergency Provider Emergency Medicine; PCP Physician Assistant; Visit Provider Nurse Practitioner Family | DX: N17.9 Acute kidney failure, unspecified (principal); N18.31 Chronic kidney disease, stage 3a; R80.1 Persistent proteinuria, unspecified; R31.21 Asymptomatic microscopic hematuria; D64.9 Anemia, unspecified | CPT/HCPCS: 99222; 99232 ==

== ENCOUNTER 2024-10-14 13:05 | Outpatient (REF) | payer OTHER, SELFPAY ==
[2024-10-14 14:53] LABS: Appearance Urine Clear; Color Urine Yellow; Glucose Urine UA Negative (Negative); Leukocyte Esterase Urine Negative (Negative); Nitrite Urine Negative (Negative); PH 5.5 (5.0-9.0); Specific Gravity - Urine 1.015 (1.005-1.025); UMIC TRIGGER UA YES; Urine Blood Trace (Negative); Urine Ketones Negative (Negative); Urine Protein 300 (3+) mg/dL (Neg-Trace)
[2024-10-14 14:55] LABS: Bacteria Urine None Seen (None Seen); RBC Urine 0-2 /HPF (0-2); Squamous Epithelial Cell Urine 0-2 /HPF (0-2); WBC Urine 0-5 /HPF (0-5)
[2024-10-14 15:48] LABS: Anion Gap 18 (12-20); Blood Urea Nitrogen 104 mg/dL (9-16); Calcium 9.1 mg/dL (8.4-10.2); Carbon Dioxide 23 mmol/L (22-29); Chloride 102 mmol/L (96-108); Estimated Glomerular Filt Rate 10; Glucose Random 114 mg/dL (60-115); Potassium 4.3 mmol/L (3.3-5.1); Sodium 139 mmol/L (135-145); Uric Acid 9.1 mg/dL (3.4-7.0)
== END 2024-10-14 13:06 | disposition home or self-care (01) ==
LOC: HO.LAB 13:05
PROVIDERS: Absent Provider Internal Medicine Hypertension Specialist; PCP Physician Assistant; Visit Provider Internal Medicine
DX: I12.9 Hypertensive chronic kidney disease with stage 1 through stage 4 chronic kidney disease, or unspecified chronic kidney disease (principal); N18.31 Chronic kidney disease, stage 3a; N17.9 Acute kidney failure, unspecified; M10.9 Gout, unspecified; E87.5 Hyperkalemia; I48.0 Paroxysmal atrial fibrillation; Z51.81 Encounter for therapeutic drug level monitoring; Z79.01 Long term (current) use of anticoagulants
CPT/HCPCS: 36415; 80048; 81001; 84550; 85610; 99211; 99212

== ENCOUNTER 2024-10-14 13:05 | Outpatient (AMB) | payer OTHER, SELFPAY ==
[2024-10-14 13:23] LABS: Prothrombin Time Whole Bld POC 19.6 sec (11.1-13.5); ~PT, ~INR - Anti Coag Clinic 1.6 (0.9-1.1)
--- NOTE | 2024-10-14 13:36 | MHC.OFFVISCO ---
Intake Intake Visit Reasons: Anticoagulation Allergies lisinopril [LISINOPRIL] Allergy (Severe, Verified 10/14/24 13:45) ACUTE KIDNEY INJURY oxycodone [Percocet] Allergy (Intermediate, Verified 10/14/24 13:45) agitation codeine [CODEINE] Allergy (Unknown, Verified 10/14/24 13:45) AGITATION morphine [MORPHINE] Allergy (Unknown, Verified 10/14/24 13:45) AGITATION, confusion From PERCOCET Allergy (Unknown, Uncoded 10/01/24 19:26) AGITATION Medication List - Last Reconciled 10/14/24 by Anne Gould RN amlodipine 2.5 mg PO DAILY atorvastatin 80 mg PO QAM cholecalciferol (vitamin D3) 25 mcg PO DAILY compression socks, large As directed febuxostat (Uloric) 40 mg PO DAILY fluticasone propionate 50 mcg/actuation 1 spray intranasal DAILY 30 days furosemide (Lasix) 40 mg PO QAM 90 days gabapentin 200 mg (2 x 100 mg) PO BEDTIME 30 days meclizine 25 mg PO TID PRN 10 days metoprolol tartrate 50 mg See Protocol PO BID 90 days simethicone 180 mg PO QID 30 days warfarin 7.5 mg PO MO warfarin 5 mg See Protocol PO SUTUWETHFRSA Nursing Note INR 1.6 out of therapeutic range S/P ADMISSION FOR RENAL - D/C 10/11/24 INR 1.4 ACS DOSED WARFARIN Medications and supplements reviewed Patient status: FEELING MUCH BETTER Medications or supplements: DIGOXIN D/CD , METOPROLOL D/CD - NOT TAKING GABAPENTIN- TO DISCUSS WITH RENAL WHICH MEDS MAY BE CAUSING HIM HARM Diet: GOOD - / IF MD WILL PUT ON ANY TYPE OF RENAL DIET Denies any signs and symptoms of bleeding or clotting or unusual bruising Bleeding, bruising, clotting discussed Nutritional guidance given: NO GREENS X 2 DAYS Dose: 7.5MG LAST MONDAY DOSE 7.5MG TODAY 5MG MON AND RECHECK MON F/U INR Date : 10/16/24?? Patient verbalizing understanding of instructions given. Anti-Coag Initial Assessment Social Hx Patient Tobacco Use Status: Former Tobacco user Tobacco use type: Cigarette alcohol intake: former Alcohol intake frequency: does not drink Coding Level of Care Code Est Patient Level 1 Diagnoses Current use of anticoagulant therapy Z79.01 Results AMB INR Fingerstick AMB INR Fingerstick 1.6 Last Edit by Anne Gould RN on 10/14/24 13:23 manual entry Assessment & Plan Assessment & Plan (1) Current use of anticoagulant therapy: Code(s): Z79.01 - jail (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
== END 2024-10-14 14:29 | disposition home or self-care (01) ==
LOC: HO.ACS 13:05
PROVIDERS: PCP Physician Assistant; Visit Provider Internal Medicine
DX: Z79.01 Long term (current) use of anticoagulants (principal)

== ENCOUNTER 2024-10-14 13:39 | Outpatient (AMB) | payer OTHER, SELFPAY ==
--- NOTE | 2024-10-14 13:43 | HO.NEPHOV_ITS ---
Vital Signs 10/14/24 13:44 Height 5 ft 6 in Weight 184 lb BMI 29.7 BP 120/80 Blood Pressure Location Lt brachial Position Sitting Pulse 65 Pulse Source Pulse Oximeter Pulse Oximetry (%) 96 Oxygen Delivery Method Room Air Intake Visit Reasons: Chronic kidney disease/ Conf Virtualization Engineer Required: Yes Virtualization Engineer Services: Virtualization Engineer Offered & Declined (Son will translate) Accompanied by: Son Allergies lisinopril [LISINOPRIL] Allergy (Severe, Verified 10/14/24 13:45) ACUTE KIDNEY INJURY oxycodone [Percocet] Allergy (Intermediate, Verified 10/14/24 13:45) agitation codeine [CODEINE] Allergy (Unknown, Verified 10/14/24 13:45) AGITATION morphine [MORPHINE] Allergy (Unknown, Verified 10/14/24 13:45) AGITATION, confusion From PERCOCET Allergy (Unknown, Uncoded 10/01/24 19:26) AGITATION Medication List - Last Reconciled 10/14/24 by Alex Garcia MD amlodipine 2.5 mg PO DAILY atorvastatin 80 mg PO QAM cholecalciferol (vitamin D3) 25 mcg PO DAILY compression socks, large As directed febuxostat (Uloric) 40 mg PO DAILY fluticasone propionate 50 mcg/actuation 1 spray intranasal DAILY 30 days furosemide (Lasix) 40 mg PO QAM 90 days gabapentin 200 mg (2 x 100 mg) PO BEDTIME 30 days meclizine 25 mg PO TID PRN 10 days metoprolol tartrate 50 mg See Protocol PO BID 90 days simethicone 180 mg PO QID 30 days warfarin 7.5 mg See Protocol PO MO warfarin 5 mg See Protocol PO SUTUWETHFRSA HPI Comments Details: Elderly man with 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 He is here for regular follow-up. Accompanied by son. History of gout he was treated with a course of prednisone. He took Uloric for a month and stopped it [place]ly returned from [place] Ate plenty of Papaya and fruits/Nuts 06/10/24 ON Uloric Gout under control Off LAsix still has foot pain - mostly in heel 10/14/24 In mid August he had preparation for colonoscopy. He had significant diarrhea. Colonoscopy was canceled. REcently hospitalized Had GONZALO with fluid overload REsponded to IV diuretics Wt down to 184 No dyspnea NO nausea or vomiting [facility] Medical History Allergies Sinus bradycardia Pre-op examination Annual physical exam History of TIA (transient ischemic attack) Gout Personal history of nicotine dependence Chronic kidney disease, stage 3 unspecified Benign prostatic hyperplasia with lower urinary tract symptoms HTN (hypertension) CAD (coronary artery disease) Paroxysmal atrial fibrillation Surgical History Stented coronary artery Hx of colonoscopy Hx of cardiac cath Hx of cystoscopy History of esophagogastroduodenoscopy (EGD) Hx of cataract extraction Family History Mother CAD (coronary artery disease) Diabetes HTN (hypertension) Father CAD (coronary artery disease) Diabetes HTN (hypertension) Social History Household Members: None Housing: Apartment Do you presently have visiting nurse or other home services: No Alcohol intake: former Patient Tobacco Use Status: Former Tobacco user Tobacco use type: Cigarette Years Smoked: 40 +/- e-Cigarette/Vaping Use: Never Used Second Hand Smoke Exposure: No service: No Current occupational status: retired and disabled Cognitive needs: No Hearing needs: No Vision needs: Yes Physical Exam Vital Signs: Last Vital Signs Pulse 65 10/14/24 13:44 BP 120/80 10/14/24 13:44 Pulse Ox 96 10/14/24 13:44 Oxygen Delivery Method Room Air 10/14/24 13:44 BMI result Body Mass Index 29.7 Comfortable Neck supple no JVD. Lungs entry equal - minimal basal rales. Heart S1-S2 heard no gallop or rub. Abdomen soft nontender. Neuro alert awake oriented. No asterixis. Extremities - Trace edema. Results AMB INR Fingerstick AMB INR Fingerstick 1.6 Last Edit by Anne Gould RN on 10/14/24 13:23 manual entry Results Reviewed Nephrology Results: Hgb 12.0 g/dl (14.0-18.0) L 10/02/24 WBC 8.8 X10*3/uL (4.8-10.8) 10/02/24 Plt Count 183 X10*3/uL (160-400) 10/02/24 Sodium 138 mmol/L (135-145) 10/10/24 Potassium 4.5 mmol/L (3.3-5.1) 10/10/24 Chloride 103 mmol/L (96-108) 10/10/24 Carbon Dioxide 20 mmol/L (22-29) L 10/10/24 BUN 104 mg/dL (9-16) H 10/10/24 Creatinine 5.15 mg/dL (0.5-1.4) H* 10/11/24 Calcium 8.5 mg/dL (8.4-10.2) 10/10/24 PTH Intact 378.0 pg/mL (8.7-77.1) H 10/01/24 Urine Protein 300 (3+) mg/dL (Neg-Trace) H 10/01/24 Urine Creatinine 56.08 mg/dL 10/02/24 Assessment & Plan Assessment & Plan (1) Chronic kidney disease, stage 3 unspecified: Code(s): N18.30 - Chronic kidney disease, stage 3 unspecified Category: Medical Qualifiers: Chronic kidney disease stage 3 subtype: stage 3a (GFR 45-59) Qualified Code(s): N18.31 - Chronic kidney disease, stage 3a Plan: Chronic disease due to interstitial nephritis by biopsy. Initial biopsy was done only [facility] and no tissue was obtained. Repeat biopsy was done and was [facility] which revealed interstitial nephritis with global scle rosis. Sustained another episode of GONZALO. At present no signs or symptoms of uremia No absolute indication for dialysis yet Fluid status acceptable Continue to avoid nephrotoxic agents. Will monitor renal function closely (2) HTN (hypertension): Code(s): I10 - Essential (primary) hypertension Category: Medical Qualifiers: Hypertension type: primary hypertension Qualified Code(s): I10 - Essential (primary) hypertension Plan: Blood pressure is well controlled Low-salt diet (3) Gout: Code(s): M10.9 - Gout, unspecified Category: Medical Plan: Seems to be under control. Keep Uloric to lower uric acid We discussed low purine diet (4) Hyperkalemia: Code(s): E87.5 - Hyperkalemia Category: Medical Plan: Low K diet (5) Acute kidney injury superimposed on CKD: Code(s): N17.9 - Acute kidney failure, unspecified; N18.9 - Chronic kidney disease, unspecified Category: Medical Plan: Due to tubular injury. Recheck renal panel today. Orders: Orders UA and rflx microscopic Today N17.9 - Acute kidney failure, unspecified, N18.9 - Chronic kidney disease, unspecified Uric Acid Today N17.9 - Acute kidney failure, unspecified, N18.9 - Chronic kidney disease, unspecified Basic Metabolic Panel Today N17.9 - Acute kidney failure, unspecified, N18.9 - Chronic kidney disease, unspecified Basic Metabolic Panel 4 Weeks N17.9 - Acute kidney failure, unspecified, N18.9 - Chronic kidney disease, unspecified Medications: New prednisone 10 mg PO ONCE PRN 10 tabs 0RF For gout/Pain Coding Level of Care Code Est Pt Level 4 (69538) Complex EM visit Add On G2211 Diagnoses Stage 3a chronic kidney disease N18.31 Chronic kidney disease stage 3 subtype: stage 3a (GFR 45-59) Primary hypertension I10 Hypertension type: primary hypertension Gout M10.9 Hyperkalemia E87.5 Acute kidney injury superimposed on CKD N17.9; N18.9
[2024-10-14 13:44] VITALS: BP 120/80; PULSE 65; O2SAT 96; BMI 29.7
== END 2024-10-14 14:05 | disposition home or self-care (01) ==
PROVIDERS: PCP Physician Assistant; Visit Provider Internal Medicine Hypertension Specialist
DX: I12.9 Hypertensive chronic kidney disease with stage 1 through stage 4 chronic kidney disease, or unspecified chronic kidney disease (principal); N17.9 Acute kidney failure, unspecified; N18.31 Chronic kidney disease, stage 3a; M10.9 Gout, unspecified; E87.5 Hyperkalemia
CPT/HCPCS: 99214; G2211

== ENCOUNTER 2024-10-16 11:33 | Outpatient (AMB) | payer OTHER, SELFPAY ==
[2024-10-16 11:46] LABS: Prothrombin Time Whole Bld POC 24.5 sec (11.1-13.5)
--- NOTE | 2024-10-16 11:59 | MHC.OFFVISCO ---
Intake Intake Visit Reasons: Anticoagulation Allergies lisinopril [LISINOPRIL] Allergy (Severe, Verified 10/16/24 11:41) ACUTE KIDNEY INJURY oxycodone [Percocet] Allergy (Intermediate, Verified 10/16/24 11:41) agitation codeine [CODEINE] Allergy (Unknown, Verified 10/16/24 11:41) AGITATION morphine [MORPHINE] Allergy (Unknown, Verified 10/16/24 11:41) AGITATION, confusion From PERCOCET Allergy (Unknown, Uncoded 10/01/24 19:26) AGITATION Medication List - Last Reconciled 10/16/24 by Elma Choudhury RN amlodipine 2.5 mg PO DAILY atorvastatin 80 mg PO QAM cholecalciferol (vitamin D3) 25 mcg PO DAILY compression socks, large As directed febuxostat (Uloric) 40 mg PO DAILY fluticasone propionate 50 mcg/actuation 1 spray intranasal DAILY 30 days furosemide (Lasix) 40 mg PO QAM 90 days gabapentin 200 mg (2 x 100 mg) PO BEDTIME 30 days meclizine 25 mg PO TID PRN 10 days metoprolol tartrate 50 mg See Protocol PO BID 90 days prednisone 10 mg PO ONCE PRN simethicone 180 mg PO QID 30 days warfarin 7.5 mg See Protocol PO MO warfarin 5 mg See Protocol PO SUTUWETHFRSA Nursing Note PT.DENIES ANY CP,SOB OR SX OF BLEEDING. NO MED CHANGES. WILL CONTINUE PRESENT DOSING AND FOLLOW-UP IN 1 WEEK. GOOD UNDERSTANDING OF DOIUNG INSTR.BY PT.AND SON Anti-Coag Initial Assessment Social Hx Patient Tobacco Use Status: Former Tobacco user Tobacco use type: Cigarette alcohol intake: former Alcohol intake frequency: does not drink Coding Level of Care Code Est Patient Level 1 Diagnoses Current use of anticoagulant therapy Z79.01 Assessment & Plan Assessment & Plan (1) Current use of anticoagulant therapy: Code(s): Z79.01 - long-term (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
== END 2024-10-16 12:02 | disposition home or self-care (01) ==
LOC: HO.ACS 11:34
PROVIDERS: PCP Physician Assistant; Visit Provider Internal Medicine
DX: Z79.01 Long term (current) use of anticoagulants (principal)

== ENCOUNTER 2024-10-16 12:52 | Outpatient (AMB) | payer OTHER, SELFPAY ==
--- NOTE | 2024-10-16 12:57 | A.OFFPC_ITS ---
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 Interactive Contact Date (Reference documentation from this date) 10/14/24 HPI Comments History of Present Illness Details 74 y/o male patient who presents to the clinic for TCM. He was admitted at [facility] on 10/02/24 and discharged home on 10/11/24 due to Acute Kidney Injury on CKD stage 3. He has a F/U appointment with Kidney doctors 11/12. [facility] Medical History Allergies Sinus bradycardia Pre-op examination Annual physical exam History of TIA (transient ischemic attack) Gout Personal history of nicotine dependence Chronic kidney disease, stage 3 unspecified Benign prostatic hyperplasia with lower urinary tract symptoms HTN (hypertension) CAD (coronary artery disease) Paroxysmal atrial fibrillation Surgical History Stented coronary artery Hx of colonoscopy Hx of cardiac cath Hx of cystoscopy History of esophagogastroduodenoscopy (EGD) Hx of cataract extraction Family History Mother CAD (coronary artery disease) Diabetes HTN (hypertension) Father CAD (coronary artery disease) Diabetes HTN (hypertension) Social History Household Members: None Housing: Apartment Do you presently have visiting nurse or other home services: No Alcohol intake: former Patient Tobacco Use Status: Former Tobacco user Tobacco use type: Cigarette Years Smoked: 40 +/- e-Cigarette/Vaping Use: Never Used Second Hand Smoke Exposure: No service: No Current occupational status: retired and disabled Cognitive needs: No Hearing needs: No Vision needs: Yes Questionnaire Thrive Questionnaire Date Thrive assessed: 10/02/24 FAUSTINA-7 AMB Questionnaire FAUSTINA-7 Date FAUSTINA - 7 assessed: 11/21/23 Source: Developed by Drs. Jasson Ramos, Alanna Allen, Wai Tanner and colleagues, with an educational marcell from [employer]. Review of Systems Const All systems reviewed & are unremarkable except as noted in HPI and below Physical exam (Primary Care) Vital Signs: Last Vital Signs Pulse 65 10/16/24 12:59 BP 124/80 10/16/24 12:59 Pulse Ox 96 10/16/24 12:59 Oxygen Delivery Method Room Air 10/16/24 12:59 BMI result Body Mass Index 29.8 Tobacco/Smoking Status: Tobacco use Status Tobacco use date assessed 11/21/23 10/16/24 12:57 Patient Tobacco Use Status Former Tobacco user 10/16/24 12:57 Tobacco use type Cigarette 10/16/24 12:57 e-Cigarette/Vaping Use Never Used 10/16/24 12:57 Thrive Assessment: Date of Thrive Assessment Date Thrive assessed 10/02/24 10/16/24 12:57 Const General: no acute distress Orientation/consciousness: patient oriented x3 Resp Effort & Inspection: normal respiratory effort Cardio Heart sounds: S1 normal heart sound present and S2 normal heart sound present Neuro General: patient oriented x3 Psych Speech and movement: Normal speech and movement present Coding Level of Care Code TCM Mod MDM <= 7 Days Diagnoses Acute kidney injury superimposed on CKD N17.9; N18.9 Time Spent (min) 20 Assessment & Plan Assessment & Plan (1) Acute kidney injury superimposed on CKD: Code(s): N17.9 - Acute kidney failure, unspecified; N18.9 - Chronic kidney disease, unspecified Category: Medical Plan: Managed by Lubricating Engineer.
[2024-10-16 12:59] VITALS: BP 124/80; PULSE 65; O2SAT 96; BMI 29.8
== END 2024-10-16 16:03 | disposition home or self-care (01) ==
PROVIDERS: PCP Physician Assistant; Visit Provider Nurse Practitioner Family
DX: N17.9 Acute kidney failure, unspecified (principal); N18.9 Chronic kidney disease, unspecified

== ENCOUNTER → 2024-10-16 | Outpatient (BNVA) | payer OTHER, SELFPAY | PROVIDERS: PCP Physician Assistant; Visit Provider Internal Medicine | DX: I48.0 Paroxysmal atrial fibrillation (principal); Z79.01 Long term (current) use of anticoagulants; Z51.81 Encounter for therapeutic drug level monitoring; N17.9 Acute kidney failure, unspecified; N18.30 Chronic kidney disease, stage 3 unspecified | CPT/HCPCS: 85610; 99211; 99212 ==

== ENCOUNTER 2024-10-23 11:25 | Outpatient (AMB) | payer OTHER, SELFPAY ==
--- NOTE | 2024-10-23 11:30 | MHC.OFFVISCO ---
Intake Intake Visit Reasons: Anticoagulation Allergies lisinopril [LISINOPRIL] Allergy (Severe, Verified 10/23/24 11:25) ACUTE KIDNEY INJURY oxycodone [Percocet] Allergy (Intermediate, Verified 10/23/24 11:25) agitation codeine [CODEINE] Allergy (Unknown, Verified 10/23/24 11:25) AGITATION morphine [MORPHINE] Allergy (Unknown, Verified 10/23/24 11:25) AGITATION, confusion From PERCOCET Allergy (Unknown, Uncoded 10/23/24 11:25) AGITATION Medication List - Last Reconciled 10/23/24 by Lisa White RN amlodipine 2.5 mg PO DAILY atorvastatin 80 mg PO QAM cholecalciferol (vitamin D3) 25 mcg PO DAILY compression socks, large As directed febuxostat (Uloric) 40 mg PO DAILY fluticasone propionate 50 mcg/actuation 1 spray intranasal DAILY 30 days furosemide (Lasix) 40 mg PO QAM 90 days gabapentin 200 mg (2 x 100 mg) PO BEDTIME 30 days meclizine 25 mg PO TID PRN 10 days metoprolol tartrate 50 mg See Protocol PO BID 90 days prednisone 10 mg PO ONCE PRN simethicone 180 mg PO QID 30 days warfarin 7.5 mg See Protocol PO MO warfarin 5 mg See Protocol PO SUTUWETHFRSA Nursing Note INR 3.4-?? out of therapeutic range of 2-3 Medications and supplements reviewed Patient status: no c.o Medications or supplements: no changes Diet: appetite is good Denies any signs and symptoms of bleeding or clotting or unusual bruising Bleeding, bruising, clotting discussed Nutritional guidance given: eat greens today and tomm, no reds for 2 days Dose: 2.5mg today, then cont reg 5mg x 6, 7.5mg x 1 F/U INR Date : 1 week? Patient verbalizing understanding of instructions given. Anti-Coag Initial Assessment Social Hx Patient Tobacco Use Status: Former Tobacco user Tobacco use type: Cigarette alcohol intake: former Alcohol intake frequency: does not drink Coding Level of Care Code Est Patient Level 1 Diagnoses Current use of anticoagulant therapy Z79.01 Assessment & Plan Assessment & Plan (1) Current use of anticoagulant therapy: Code(s): Z79.01 - [facility] (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
[2024-10-23 11:31] LABS: Prothrombin Time Whole Bld POC 40.4 sec (11.1-13.5); ~PT, ~INR - Anti Coag Clinic 3.4 (0.9-1.1)
== END 2024-10-23 11:37 | disposition home or self-care (01) ==
LOC: HO.ACS 11:25
PROVIDERS: PCP Physician Assistant; Visit Provider Internal Medicine
DX: Z79.01 Long term (current) use of anticoagulants (principal)

== ENCOUNTER → 2024-10-23 11:25 | Outpatient (BNVA) | payer OTHER, SELFPAY | PROVIDERS: PCP Physician Assistant; Visit Provider Internal Medicine | DX: I48.0 Paroxysmal atrial fibrillation (principal); Z79.01 Long term (current) use of anticoagulants; Z51.81 Encounter for therapeutic drug level monitoring | CPT/HCPCS: 85610; 99211 ==

== ENCOUNTER 2024-10-30 11:00 | Outpatient (AMB) | payer OTHER, SELFPAY ==
[2024-10-30 11:07] LABS: Prothrombin Time Whole Bld POC 32.9 sec (11.1-13.5); ~PT, ~INR - Anti Coag Clinic 2.7 (0.9-1.1)
--- NOTE | 2024-10-30 11:13 | MHC.OFFVISCO ---
Intake Intake Visit Reasons: Anticoagulation Allergies lisinopril [LISINOPRIL] Allergy (Severe, Verified 10/30/24 11:02) ACUTE KIDNEY INJURY oxycodone [Percocet] Allergy (Intermediate, Verified 10/30/24 11:02) agitation codeine [CODEINE] Allergy (Unknown, Verified 10/30/24 11:02) AGITATION morphine [MORPHINE] Allergy (Unknown, Verified 10/30/24 11:02) AGITATION, confusion From PERCOCET Allergy (Unknown, Uncoded 10/23/24 11:25) AGITATION Medication List - Last Reconciled 10/30/24 by Elma Choudhury RN amlodipine 2.5 mg PO DAILY atorvastatin 80 mg PO QAM cholecalciferol (vitamin D3) 25 mcg PO DAILY compression socks, large As directed febuxostat (Uloric) 40 mg PO DAILY fluticasone propionate 50 mcg/actuation 1 spray intranasal DAILY 30 days furosemide (Lasix) 40 mg PO QAM 90 days gabapentin 200 mg (2 x 100 mg) PO BEDTIME 30 days meclizine 25 mg PO TID PRN 10 days metoprolol tartrate 50 mg See Protocol PO BID 90 days prednisone 10 mg PO ONCE PRN simethicone 180 mg PO QID 30 days warfarin 7.5 mg See Protocol PO MO warfarin 5 mg See Protocol PO SUTUWETHFRSA Nursing Note NO CP,SOB,DIET/MED CHANGES,FALLS OR SXOF BLEEDING. CONTINUE PRESENT DOSE AND FOLLOW-UP IN 2 WEEKS GOOD UNDERSTANDING OF DOSING INSTR. Anti-Coag Initial Assessment Social Hx Patient Tobacco Use Status: Former Tobacco user Tobacco use type: Cigarette alcohol intake: former Alcohol intake frequency: does not drink Coding Level of Care Code Est Patient Level 1 Diagnoses Current use of anticoagulant therapy Z79.01 Assessment & Plan Assessment & Plan (1) Current use of anticoagulant therapy: Code(s): Z79.01 - senior living (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
== END 2024-10-30 11:15 | disposition home or self-care (01) ==
LOC: HO.ACS 11:00
PROVIDERS: PCP Physician Assistant; Visit Provider Internal Medicine
DX: Z79.01 Long term (current) use of anticoagulants (principal)

== ENCOUNTER → 2024-10-30 11:00 | Outpatient (BNVA) | payer OTHER, SELFPAY | PROVIDERS: PCP Physician Assistant; Visit Provider Internal Medicine | DX: I48.0 Paroxysmal atrial fibrillation (principal); Z79.01 Long term (current) use of anticoagulants; Z51.81 Encounter for therapeutic drug level monitoring | CPT/HCPCS: 85610; 99211 ==

== ENCOUNTER 2024-11-05 13:08 | Outpatient (REF) | payer OTHER, SELFPAY ==
[2024-11-05 13:29] LABS: MANUAL DIFF FLAG NO
[2024-11-05 13:47] LABS: Basophils Absolute Auto 0.1 X10*3/uL (0.0-0.2); Basophils Percent Auto 1.2 % (0-2); Eosinophils Absolute Auto 0.8 X10*3/uL (0.0-0.4); Eosinophils Percent Auto 10.2 % (0-4); Hematocrit 41.8 % (42.0-52.0); Hemoglobin 13.2 g/dl (14.0-18.0); Imm Gran Abs Auto 0.01 X10*3/uL (0.00-0.03); Imm Gran Pct Auto 0.1 % (0.0-0.4); Lymphocytes Absolute Auto 1.2 X10*3/uL (1.2-4.9); Lymphocytes Percent Auto 15.6 % (20-40); Mean Corpuscular HGB Conc 31.6 g/dl (31.0-36.0); Mean Corpuscular Hemoglobin 27.1 pg (27.0-33.0); Mean Corpuscular Volume 85.8 fL (80.0-98.0); Mean Platelet Volume 10.5 fL (9.4-12.4); Monocytes Absolute Auto 0.9 X10*3/uL (0.1-1.2); Monocytes Percent Auto 11.5 % (2-11); Neutrophils Absolute Auto 4.8 x10*3/uL (2.0-8.3); Neutrophils Percent Auto 61.4 % (45-73); Platelet Count 196 X10*3/uL (160-400); Red Blood Count 4.87 X10*6/uL (4.60-5.80); Red Cell Distribution Width 14.9 % (11.0-16.0); White Blood Count 7.8 X10*3/uL (4.8-10.8)
[2024-11-05 13:52] LABS: Appearance Urine Clear; Color Urine Yellow; Glucose Urine UA Negative (Negative); Leukocyte Esterase Urine Negative (Negative); Nitrite Urine Negative (Negative); Specific Gravity - Urine 1.015 (1.005-1.025); UMIC TRIGGER UA YES; Urine Blood Small (1+) (Negative); Urine Ketones Negative (Negative); Urine Protein 300 (3+) mg/dL (Neg-Trace)
[2024-11-05 14:09] LABS: Bacteria Urine None Seen (None Seen); Hyaline Casts Urine 0-2 /LPF (0-2); Squamous Epithelial Cell Urine 0-2 /HPF (0-2); WBC Urine 0-5 /HPF (0-5)
[2024-11-05 14:22] LABS: Alanine Aminotransferase 24 U/L (0-40); Albumin Level 3.6 g/dL (3.5-5.0); Alkaline Phosphatase 88 U/L (39-117); Anion Gap 11 (12-20); Aspartate Amino Transferase 24 U/L (5-37); Bilirubin Total 0.5 mg/dL (0.0-1.0); Blood Urea Nitrogen 72 mg/dL (9-16); Calcium 8.7 mg/dL (8.4-10.2); Carbon Dioxide 29 mmol/L (22-29); Chloride 106 mmol/L (96-108); Glucose Random 108 mg/dL (60-115); Potassium 4.8 mmol/L (3.3-5.1); Sodium 141 mmol/L (135-145)
[2024-11-05 14:27] LABS: Estimated Glomerular Filt Rate 12
== END 2024-11-05 13:09 | disposition home or self-care (01) ==
LOC: HO.LAB 13:08
PROVIDERS: Nurse Practitioner; PCP Physician Assistant; Visit Provider Internal Medicine Hypertension Specialist
DX: Z01.818 Encounter for other preprocedural examination (principal); I25.10 Atherosclerotic heart disease of native coronary artery without angina pectoris; D12.6 Benign neoplasm of colon, unspecified
CPT/HCPCS: 36415; 80053; 81001; 85025

== ENCOUNTER 2024-11-12 10:42 | Outpatient (AMB) | payer OTHER, SELFPAY ==
[2024-11-12 10:51] LABS: Prothrombin Time Whole Bld POC 31.8 sec (11.1-13.5); ~PT, ~INR - Anti Coag Clinic 2.6 (0.9-1.1)
--- NOTE | 2024-11-12 10:54 | MHC.OFFVISCO ---
Intake Intake Visit Reasons: Anticoagulation Allergies lisinopril [LISINOPRIL] Allergy (Severe, Verified 11/12/24 10:44) ACUTE KIDNEY INJURY oxycodone [Percocet] Allergy (Intermediate, Verified 11/12/24 10:44) agitation codeine [CODEINE] Allergy (Unknown, Verified 11/12/24 10:44) AGITATION morphine [MORPHINE] Allergy (Unknown, Verified 11/12/24 10:44) AGITATION, confusion From PERCOCET Allergy (Unknown, Uncoded 11/12/24 10:44) AGITATION Medication List - Last Reconciled 11/12/24 by Gosia Alexander RN amlodipine 2.5 mg PO DAILY atorvastatin 80 mg PO QAM cholecalciferol (vitamin D3) 25 mcg PO DAILY compression socks, large As directed febuxostat (Uloric) 40 mg PO DAILY fluticasone propionate 50 mcg/actuation 1 spray intranasal DAILY 30 days furosemide (Lasix) 40 mg PO QAM 90 days gabapentin 200 mg (2 x 100 mg) PO BEDTIME 30 days meclizine 25 mg PO TID PRN 10 days metoprolol tartrate 50 mg See Protocol PO BID 90 days prednisone 10 mg PO ONCE PRN simethicone 180 mg PO QID 30 days warfarin 7.5 mg See Protocol PO MO warfarin 5 mg See Protocol PO SUTUWETHFRSA Nursing Note Amb to [facility] accompanied by son Medications and supplements reviewed No changes in health, diet, medications, or supplements, Denies any unusual signs and symptoms of bleeding, bruising, or clotting. Bleeding, bruising, clotting discussed, pt has resolving bruise to left palm don't know how it happened but it was about a week ago Nutritional guidance given INR 2.6 in therapeutic range Dose: continue same dosing 7.5mg x 1 day and 5mg x 5 days F/U INR: 2 weeks Patient verbalizes understanding of instructions given Anti-Coag Initial Assessment Social Hx Patient Tobacco Use Status: Former Tobacco user Tobacco use type: Cigarette alcohol intake: former Alcohol intake frequency: does not drink Coding Level of Care Code Est Patient Level 1 Diagnoses Current use of anticoagulant therapy Z79.01 Time Spent (min) 15 Assessment & Plan Assessment & Plan (1) Current use of anticoagulant therapy: Code(s): Z79.01 - public housing manager (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
== END 2024-11-12 10:59 | disposition home or self-care (01) ==
LOC: HO.ACS 10:42
PROVIDERS: PCP Physician Assistant; Visit Provider Internal Medicine
DX: Z79.01 Long term (current) use of anticoagulants (principal)

== ENCOUNTER → 2024-11-12 10:42 | Outpatient (BNVA) | payer OTHER, SELFPAY | PROVIDERS: PCP Physician Assistant; Visit Provider Internal Medicine | DX: I12.9 Hypertensive chronic kidney disease with stage 1 through stage 4 chronic kidney disease, or unspecified chronic kidney disease (principal); N18.9 Chronic kidney disease, unspecified; N17.9 Acute kidney failure, unspecified; M10.9 Gout, unspecified; E87.5 Hyperkalemia; I48.0 Paroxysmal atrial fibrillation; Z79.01 Long term (current) use of anticoagulants; Z51.81 Encounter for therapeutic drug level monitoring | CPT/HCPCS: 85610; 99211; 99212 ==

== ENCOUNTER 2024-11-12 11:08 | Outpatient (AMB) | payer OTHER, SELFPAY ==
[2024-11-12 11:20] VITALS: BP 132/80; PULSE 91; O2SAT 96; BMI 30.2
--- NOTE | 2024-11-12 11:20 | HO.NEPHOV ---
Vital Signs 11/12/24 11:20 Height 5 ft 6 in Weight 187 lb BMI 30.2 BP 132/80 Blood Pressure Location Lt brachial Position Sitting Pulse 91 Pulse Source Pulse Oximeter Pulse Oximetry (%) 96 Oxygen Delivery Method Room Air Intake Visit Reasons: CKD/ Conf Group Exercise Instructor Required: Yes Group Exercise Instructor Services: Group Exercise Instructor Offered & Declined (Son will translate) Accompanied by: Son Allergies lisinopril [LISINOPRIL] Allergy (Severe, Verified 11/12/24 11:22) ACUTE KIDNEY INJURY oxycodone [Percocet] Allergy (Intermediate, Verified 11/12/24 11:22) agitation codeine [CODEINE] Allergy (Unknown, Verified 11/12/24 11:22) AGITATION morphine [MORPHINE] Allergy (Unknown, Verified 11/12/24 11:22) AGITATION, confusion From PERCOCET Allergy (Unknown, Uncoded 11/12/24 10:44) AGITATION Medication List - Last Reconciled 11/12/24 by Alex Garcia MD amlodipine 2.5 mg PO DAILY atorvastatin 80 mg PO QAM cholecalciferol (vitamin D3) 25 mcg PO DAILY compression socks, large As directed febuxostat (Uloric) 40 mg PO DAILY fluticasone propionate 50 mcg/actuation 1 spray intranasal DAILY 30 days furosemide (Lasix) 40 mg PO QAM 90 days gabapentin 200 mg (2 x 100 mg) PO BEDTIME 30 days meclizine 25 mg PO TID PRN 10 days metoprolol tartrate 50 mg See Protocol PO BID 90 days prednisone 10 mg PO ONCE PRN simethicone 180 mg PO QID 30 days warfarin 7.5 mg See Protocol PO MO warfarin 5 mg See Protocol PO SUTUWETHFRSA HPI Comments Details: Elderly man with 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 He is here for regular follow-up. Accompanied by son. History of gout he was treated with a course of prednisone. He took Uloric for a month and stopped it [place] Ate plenty of Papaya and fruits/Nuts 06/10/24 ON Uloric Gout under control Off LAsix still has foot pain - mostly in heel 10/14/24 In mid August he had preparation for colonoscopy. He had significant diarrhea. Colonoscopy was canceled. REcently hospitalized Had GONZALO with fluid overload REsponded to IV diuretics Wt down to 184 No dyspnea NO nausea or vomiting 11/12/24 Feels better. No new issues [facility] Medical History Allergies Sinus bradycardia Pre-op examination Annual physical exam History of TIA (transient ischemic attack) Gout Personal history of nicotine dependence Chronic kidney disease, stage 3 unspecified Benign prostatic hyperplasia with lower urinary tract symptoms HTN (hypertension) CAD (coronary artery disease) Paroxysmal atrial fibrillation Surgical History Stented coronary artery Hx of colonoscopy Hx of cardiac cath Hx of cystoscopy History of esophagogastroduodenoscopy (EGD) Hx of cataract extraction Family History Mother CAD (coronary artery disease) Diabetes HTN (hypertension) Father CAD (coronary artery disease) Diabetes HTN (hypertension) Social History Household Members: None Housing: Apartment Do you presently have visiting nurse or other home services: No Alcohol intake: former Patient Tobacco Use Status: Former Tobacco user Tobacco use type: Cigarette Years Smoked: 40 +/- e-Cigarette/Vaping Use: Never Used Second Hand Smoke Exposure: No service: No Current occupational status: retired and disabled Cognitive needs: No Hearing needs: No Vision needs: Yes Physical Exam Vital Signs: Last Vital Signs Pulse 91 11/12/24 11:20 BP 132/80 11/12/24 11:20 Pulse Ox 96 11/12/24 11:20 Oxygen Delivery Method Room Air 11/12/24 11:20 BMI result Body Mass Index 30.2 Results Reviewed Nephrology Results: Hgb 13.2 g/dl (14.0-18.0) L 11/05/24 WBC 7.8 X10*3/uL (4.8-10.8) 11/05/24 Plt Count 196 X10*3/uL (160-400) 11/05/24 Sodium 141 mmol/L (135-145) 11/05/24 Potassium 4.8 mmol/L (3.3-5.1) 11/05/24 Chloride 106 mmol/L (96-108) 11/05/24 Carbon Dioxide 29 mmol/L (22-29) 11/05/24 BUN 72 mg/dL (9-16) H 11/05/24 Creatinine 4.71 mg/dL (0.5-1.4) H* 11/05/24 Calcium 8.7 mg/dL (8.4-10.2) 11/05/24 Urine Protein 300 (3+) mg/dL (Neg-Trace) H 11/05/24 Assessment & Plan Assessment & Plan (1) CKD (chronic kidney disease) stage 5, GFR less than 15 ml/min: Code(s): N18.5 - Chronic kidney disease, stage 5 Category: Medical Plan: Chronic disease due to interstitial nephritis by biopsy. Initial biopsy was done only [facility] and no tissue was obtained. Repeat biopsy was done and was [facility] which revealed interstitial nephritis with global sclerosis. Sustained another episode of GONZALO. At present no signs or symptoms of uremia No absolute indication for dialysis yet Fluid status acceptable Continue to avoid nephrotoxic agents. Will monitor renal function closely (2) Acute kidney injury superimposed on CKD: Code(s): N17.9 - Acute kidney failure, unspecified; N18.9 - Chronic kidney disease, unspecified Category: Medical Plan: Due to tubular injury. Marginal improvement (3) HTN (hypertension): Code(s): I10 - Essential (primary) hypertension Category: Medical Qualifiers: Hypertension type: primary hypertension Qualified Code(s): I10 - Essential (primary) hypertension Plan: Blood pressure is well controlled Low-salt diet (4) Gout: Code(s): M10.9 - Gout, unspecified Category: Medical Plan: Seems to be under control. Keep Uloric to lower uric acid We discussed low purine diet (5) Hyperkalemia: Code(s): E87.5 - Hyperkalemia Category: Medical Plan: Low K diet Orders: Orders Basic Metabolic Panel 6 Weeks N17.9 - Acute kidney failure, unspecified, N18.9 - Chronic kidney disease, unspecified Coding Level of Care Code Est Pt Level 4 (00789) Complex EM visit Add On G2211 Diagnoses CKD (chronic kidney disease) stage 5, GFR less than 15 ml/min N18.5 Acute kidney injury superimposed on CKD N17.9; N18.9 Primary hypertension I10 Hypertension type: primary hypertension Gout M10.9 Hyperkalemia E87.5
== END 2024-11-12 11:31 | disposition home or self-care (01) ==
PROVIDERS: PCP Physician Assistant; Visit Provider Internal Medicine Hypertension Specialist
DX: I12.0 Hypertensive chronic kidney disease with stage 5 chronic kidney disease or end stage renal disease (principal); N18.5 Chronic kidney disease, stage 5; N17.9 Acute kidney failure, unspecified; M10.9 Gout, unspecified; E87.5 Hyperkalemia
CPT/HCPCS: 99214; G2211

== ENCOUNTER 2024-11-27 11:05 | Outpatient (AMB) | payer OTHER, SELFPAY ==
--- NOTE | 2024-11-27 11:16 | MHC.OFFVISCO ---
Intake Intake Visit Reasons: Anticoagulation Allergies lisinopril [LISINOPRIL] Allergy (Severe, Verified 11/27/24 11:12) ACUTE KIDNEY INJURY oxycodone [Percocet] Allergy (Intermediate, Verified 11/27/24 11:12) agitation codeine [CODEINE] Allergy (Unknown, Verified 11/27/24 11:12) AGITATION morphine [MORPHINE] Allergy (Unknown, Verified 11/27/24 11:12) AGITATION, confusion From PERCOCET Allergy (Unknown, Uncoded 11/27/24 11:12) AGITATION Medication List - Last Reconciled 11/27/24 by Lisa White RN amlodipine 2.5 mg PO DAILY atorvastatin 80 mg PO QAM cholecalciferol (vitamin D3) 25 mcg PO DAILY compression socks, large As directed febuxostat (Uloric) 40 mg PO DAILY fluticasone propionate 50 mcg/actuation 1 spray intranasal DAILY 30 days furosemide (Lasix) 40 mg PO QAM 90 days gabapentin 200 mg (2 x 100 mg) PO BEDTIME 30 days meclizine 25 mg PO TID PRN 10 days metoprolol tartrate 50 mg See Protocol PO BID 90 days prednisone 10 mg PO ONCE PRN simethicone 180 mg PO QID 30 days warfarin 7.5 mg See Protocol PO MO warfarin 5 mg See Protocol PO SUTUWETHFRSA Nursing Note INR: 2.0- in therapeutic range of 2-3 Medications and supplements reviewed No changes in health, diet, medications, or supplements, Denies any signs and symptoms of bleeding or bruising or clotting. Bleeding, bruising, clotting discussed Nutritional guidance given - no greens for 2 days,, will eat a red today pt states may have had more greens and had some milk chocolate Dose: 5mg x 6 , 7.5mg x 1 F/U INR: 2 weeks Patient verbalizes understanding of instructions given Anti-Coag Initial Assessment Social Hx Patient Tobacco Use Status: Former Tobacco user Tobacco use type: Cigarette alcohol intake: former Alcohol intake frequency: does not drink Coding Level of Care Code Est Patient Level 1 Diagnoses Current use of anticoagulant therapy Z79.01 Results AMB INR Fingerstick AMB INR Fingerstick 2.0 Last Edit by Lisa White RN on 11/27/24 11:18 interface delay Assessment & Plan Assessment & Plan (1) Current use of anticoagulant therapy: Code(s): 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
[2024-11-27 11:26] LABS: Prothrombin Time Whole Bld POC 24.6 sec (11.1-13.5)
== END 2024-11-27 11:23 | disposition home or self-care (01) ==
LOC: HO.ACS 11:05
PROVIDERS: PCP Physician Assistant; Visit Provider Internal Medicine
DX: Z79.01 Long term (current) use of anticoagulants (principal)

== ENCOUNTER → 2024-11-27 11:05 | Outpatient (BNVA) | payer OTHER, SELFPAY | PROVIDERS: PCP Physician Assistant; Visit Provider Internal Medicine | DX: I48.0 Paroxysmal atrial fibrillation (principal); Z79.01 Long term (current) use of anticoagulants; Z51.81 Encounter for therapeutic drug level monitoring | CPT/HCPCS: 85610; 99211 ==

== ENCOUNTER 2024-12-11 11:22 | Outpatient (AMB) | payer OTHER, SELFPAY ==
[2024-12-11 11:33] LABS: Prothrombin Time Whole Bld POC 33.2 sec (11.1-13.5); ~PT, ~INR - Anti Coag Clinic 2.8 (0.9-1.1)
--- NOTE | 2024-12-11 11:41 | MHC.OFFVISCO ---
Intake Intake Visit Reasons: Anticoagulation Allergies lisinopril [LISINOPRIL] Allergy (Severe, Verified 12/11/24 11:28) ACUTE KIDNEY INJURY oxycodone [Percocet] Allergy (Intermediate, Verified 12/11/24 11:28) agitation codeine [CODEINE] Allergy (Unknown, Verified 12/11/24 11:28) AGITATION morphine [MORPHINE] Allergy (Unknown, Verified 12/11/24 11:28) AGITATION, confusion From PERCOCET Allergy (Unknown, Uncoded 11/27/24 11:12) AGITATION Medication List - Last Reconciled 12/11/24 by Elma Choudhury RN amlodipine 2.5 mg PO DAILY atorvastatin 80 mg PO QAM cholecalciferol (vitamin D3) 25 mcg PO DAILY compression socks, large As directed febuxostat (Uloric) 40 mg PO DAILY fluticasone propionate 50 mcg/actuation 1 spray intranasal DAILY 30 days furosemide (Lasix) 40 mg PO QAM 90 days gabapentin 200 mg (2 x 100 mg) PO BEDTIME 30 days meclizine 25 mg PO TID PRN 10 days metoprolol tartrate 50 mg See Protocol PO BID 90 days prednisone 10 mg PO ONCE PRN simethicone 180 mg PO QID 30 days warfarin 7.5 mg See Protocol PO MO warfarin 5 mg See Protocol PO SUTUWETHFRSA Nursing Note NO CP,SOB,DIET/MED CHANGES,FALLS OR SX OF BLEEDING. CONTINUE PRESENT DOSE AND FOLLOW-UP IN 3 WEEKS. GOOD UNDERSTANDING OF DOSING INSTR. 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
== END 2024-12-11 11:42 | disposition home or self-care (01) ==
LOC: HO.ACS 11:22
PROVIDERS: PCP Physician Assistant; Visit Provider Internal Medicine
DX: Z79.01 Long term (current) use of anticoagulants (principal)

== ENCOUNTER → 2024-12-11 11:22 | Outpatient (BNVA) | payer OTHER, SELFPAY | PROVIDERS: PCP Physician Assistant; Visit Provider Internal Medicine | DX: I48.0 Paroxysmal atrial fibrillation (principal); Z79.01 Long term (current) use of anticoagulants; Z51.81 Encounter for therapeutic drug level monitoring | CPT/HCPCS: 85610; 99211 ==

== ENCOUNTER 2024-12-23 14:24 | Outpatient (REF) | payer OTHER, SELFPAY ==
[2024-12-23 15:42] LABS: Anion Gap 13 (12-20); Blood Urea Nitrogen 79 mg/dL (9-16); Calcium 8.9 mg/dL (8.4-10.2); Carbon Dioxide 26 mmol/L (22-29); Chloride 108 mmol/L (96-108); Estimated Glomerular Filt Rate 13; Glucose Random 101 mg/dL (60-115); Potassium 5.2 mmol/L (3.3-5.1); Sodium 142 mmol/L (135-145)
--- OUTSIDE RECORDS SUMMARY | 2024-12-23 16:05 | XMS_ITS | Clinical Summary ---
Author Organization [employer] Address [address] [place] [address] [address] [place] [address] Care Team Providers Care Soil Analyst Name Role Phone Robe Parker PharmD Unavailable [phone] Allergies Active Allergy Reactions Criticality Noted Date Comments Morphine Other 08/09/2023 Visual disturbance, somnolence Nsaids 11/16/2010 Other reaction(s): unspecified: contraindication Medications acetaminophen (Tylenol 8 Hour) 650 MG ER tablet Take 1 tablet by mouth every 8 (eight) hours. 0 Active metoprolol tartrate (Lopressor) 100 MG tablet Take 1 tablet by mouth every 12 (twelve) hours. Take with meals Active warfarin (Coumadin) 5 MG tablet 5 mg daily MWF, 2.5 mg daily SuTuThSa 2 Active fluticasone (Flonase) 50 MCG/ACT nasal sprayIndications :Allergic rhinitis due to other allergic trigger, unspecified seasonality Administer 1 spray into each nostril in the morning. Shake gently. Before first use, prime pump. After use, clean tip and replace cap. 16 g 11 2 Active digoxin (Lanoxin) 125 MCG tablet Take 125 mcg by mouth in the morning. 2 Active meclizine (Antivert) 25 MG tabletIndication s:Vertigo Take 1 tablet (25 mg) by mouth if needed in the morning, at noon, and at bedtime for dizziness. 30 tablet 1 3 Active Patiromer Sorbitex Calcium (Veltassa) 8.4 g packIndications: Hyperkalemia,CKD (chronic kidney disease), stage IV (CMS/HCC) MIX WITH WATER AND DRINK 1 PACKET (8.4 GRAMS) EVERY OTHER DAY 30 each 3 3 Active cetirizine (ZyrTEC) 5 MG tablet TAKE 1 TABLET BY MOUTH EVERY DAY 90 tablet 1 3 Active Lancets (OneTouch Delica Plus [id number]) [facility] Check blood sugar once daily 100 each 11 3 Active Blood Glucose Monitoring Suppl (ONE TOUCH ULTRA 2) w/Device kitIndications:T ype 2 diabetes mellitus with stage 4 chronic kidney disease, without long-term current use of insulin ([facility]) 1 kit Once daily. 1 kit 3 Active OneTouch Ultra test strip TEST BLOOD SUGAR 2 OR 3 TIMES DAILY 100 strip 11 3 Active Vitamin D High Potency 25 MCG (1000 UT) capsule TAKE 1 CAPSULE BY MOUTH EVERY MORNING 90 capsule 3 Active Alcohol Swabs (Alcohol Prep) 70 % pads USE DIRECTED 100 each 5 3 Active atorvastatin (Lipitor) 80 MG tabletIndication s:Dyslipidemia TAKE 1 TABLET BY MOUTH EVERY MORNING 90 tablet 3 3 Active gabapentin (Neurontin) 100 MG capsuleIndicatio ns:Neuropathic pain TAKE 2 CAPSULES BY MOUTH EVERY DAY AT BEDTIME 60 capsule 3 3 Active Active Problems Problem Noted Date Diagnosed Date Gout 11/05/2023 Assessment & Plan (11/05/2023 4:36 PM EST): - last uric acid 9.0 mg/dL on 09/12/23 - currently taking febuxostat 40 mg daily prescribed by inside sales account representative - continue febuxostat 40 mg daily - recheck uric acid level - refer to RD because he wants to learn what he can eat Borborygmus 08/09/2023 History of adenomatous polyp of colon 08/09/2023 Encounter for screening for malignant neoplasm o f colon 08/09/2023 Tinnitus 03/21/2023 Chronic anticoagulation 03/21/2023 Assessment & Plan (11/05/2023 4:34 PM EST): - indication: Atrial fibrilation - medication: warfarin - monitored by [facility] - most recent INR 2.2 on 10/20/23 - continue current treatment plan Assessment & Plan (03/21/2023 11:52 AM EDT): - indication: Atrial fibrilation - medication: warfarin - monitored by [facility] - most recent INR 1.6 on 03/08/23 - continue current treatment plan Hyperkalemia 03/21/2023 Assessment & Plan (11/05/2023 4:33 PM EST): - on Patiromer every other day Assessment & Plan (03/21/2023 11:57 AM EDT): - on Patiromer every other day - will change its instruction - will check if he can take Lokelma, rather than Veltassa Vertigo 12/19/2022 Assessment & Plan (03/13/2023 1:11 PM EDT): - MRI completed on 12/14/22 No acute intracranial process. 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 - seen by neurologist, Dr. Lindsey on 02/15/23. Impression was BPPV. Prescribed meclizine. - continue meclizine. Assessment & Plan (12/25/2022 7:11 AM EST): MRI completed on 12/14/22, previously prescribed Meclizine for BPPV. -Results of MRI is pending, will notify patient when note is available. -Will refill Meclizine -Refer to neurologist per pt's request History of Lyme disease 11/08/2022 Hypertriglyceridemia 11/07/2022 Assessment & Plan (11/05/2023 4:32 PM EST): - Current medication: fenfibrate 160 mg daily (on atorvastatin 40 mg) - Last lipid profile: 08/05/22 TC 150; TG 128; HDL 38; LDL 87 - Last LFT lab on 08/05/22 stable Assessment & Plan (11/07/2022 5:00 AM EST): - Current medication: fenfibrate 160 mg daily (on atorvastatin 40 mg) - Last lipid profile: 08/05/22 TC 150; TG 128; HDL 38; LDL 87 - Last LFT lab on 08/05/22 stable Abdominal aortic aneurysm without rupture 2021 Thoracic aortic aneurysm without rupture 022 Assessment & Plan (11/05/2023 4:28 PM EST): - followed by Dr. Hooks - last CTA in May 2023 showed stable size 4.0 cm - annual surveillance Stage 4 chronic kidney disease 04/02/2021 Assessment & Plan (11/05/2023 4:30 PM EST): -Application Consultant: Dr. Roland, last seen in Sep 2023 -Baseline SCr 2.0-2.4; eGFR 27-32, K 4.9-5.4 -Avoid nephrotoxic drugs/substances and behaviors, including NSAIDs use. -Renal dose medications. Assessment & Plan (03/13/2023 1:36 PM EDT): -Application Consultant: Dr. Roland, last seen in 12/27/21 -Baseline SCr 2.4-2.8; eGFR 22-26, CrCl 28.5 -Most recent lab: 08/05/22 K 5.2, BUN 46, SCr 2.48; eGFR 26 -Avoid nephrotoxic drugs/substances and behaviors, including NSAIDs use. -Renal dose medications. Assessment & Plan (12/19/2022 1:28 PM EST): -Application Consultant: Dr. Roland, last seen in 12/27/21 -Baseline SCr 2.4-2.8; eGFR 22-26, CrCl 28.5 -Most recent lab: 08/05/22 K 5.2, BUN 46, SCr 2.48; eGFR 26 -Avoid nephrotoxic drugs/substances and behaviors, including NSAIDs use. -Renal dose medications. Assessment & Plan (11/07/2022 4:55 AM EST): -Application Consultant: Dr. Roland, last seen in 12/27/21 -Baseline SCr 2.4-2.8; eGFR 22-26, CrCl 28.5 -Most recent lab: 08/05/22 K 5.2, BUN 46, SCr 2.48; eGFR 26 -Avoid nephrotoxic drugs/substances and behaviors, including NSAIDs use. -Renal dose medications. Chronic interstitial nephritis 04/02/2021 Proteinuria 04/02/2021 Ischemic heart disease 04/30/2018 Assessment & Plan (11/05/2023 4:06 PM EST): -Cattle Trader, Dr. Cain, seen in April 2023 -TIA in January 2018. Dx Afib. Started on Coumadin. -03/14/18 BRITTANY to distal RCA. Completed uninterrupted Plavix and Coumadin therapy for 1 year. Plan was to swithc Plavix to ASA. Pt is not on ASA or Plavix at this time because of high bleeding risk with warfarin. - Last echo in 12/28/21: Normal LV function, EF 55-60%. slight decrease from last echo. Mild mitral valve reguigitation -Continue current medications and risk factor management / secondary prevention Assessment & Plan (03/13/2023 1:29 PM EDT): -Cattle Trader, Dr. Cain, seen on 11/10/22 -TIA in January 2018. Dx Afib. Started on Coumadin. -03/14/18 BRITTANY to distal RCA. Completed uninterrupted Plavix and Coumadin therapy for 1 year. Plan was to swithc Plavix to ASA. Pt is not on ASA or Plavix at this time because his CAD is stable per medical records technician. - Last echo in 12/28/21: Normal LV function, EF 55-60%. slight decrease from last echo. mild GERD reguigitation -Continue current medications Assessment & Plan (12/25/2022 7:27 AM EST): -Cattle Trader, Dr. Cain, seen on 11/10/22 -TIA in January 2018. Dx Afib. Started on Coumadin. -03/14/18 BRITTANY to distal RCA. Completed uninterrupted Plavix and Coumadin therapy for 1 year. Plan was to swithc Plavix to ASA. Pt is not on ASA or Plavix at this time because his CAD is stable per medical records technician. - Last echo in 12/28/21: Normal LV function, EF 55-60%. slight decrease from last echo. mild GERD reguigitation -Continue current medications Assessment & Plan (11/07/2022 5:02 AM EST): -Cattle Trader, Dr. Cani, seen on 05/19/22 -TIA in January 2018. Dx Afib. Started on Coumadin. -03/14/18 BRITTANY to distal RCA. Completed uninterrupted Plavix and Coumadin therapy for 1 year. Plan was to swithc Plavix to ASA. Pt is not on ASA or Plavix at this time because his CAD is stable per medical records technician. - Last echo in 12/28/21: Normal LV function, EF 55-60%. slight decrease from last echo. mild GERD reguigitation -Continue current medications Status post insertion of bernadine g-eluting stent into right coronary artery for coronary artery disease 04/30/2018 Tinea pedis 04/30/2018 Chronic atrial fibrillation 02/09/2018 Assessment & Plan (10/30/2023 6:26 AM EST): A-fib today, rate controlled. pt is usually asymptomatic whether he is bradycardia and tachycardia -his medical records technician recommends rate control rather than rhythm control - Continue rate control with metoprolol tartrate 100 mg bid - Continue digoxin 125 mcg daily - Continue warfarin, which is monitored by [facility] -- Treatment Hx: --Previously on diltiazem 120 mg daily, which was discontinued in Dec 2020 due to bradycardia --Metoprolol dose was decreased due to bradycardia, then increased again in April 2022 -- Previously on Multaq 400mg BID, discontinued on April 2022 -Holter monitor on 04/13/22 showed average HR 61 bpm, sinus. A-fib 36%. -Holter monitor on 09/08/22 showed average HR 101 bpm, baseline A-fib, HR > 100 for 67% period - Plan for pacing if pt becomes symptomatic Assessment & Plan (03/13/2023 1:34 PM EDT): A-fib today, rate controlled. pt is usually asymptomatic whether he is bradycardia and tachycardia -his medical records technician recommends rate control rather than rhythm control - Continue rate control with metoprolol tartrate 100 mg bid - Continue digoxin 125 mcg daily - Continue warfarin, which is monitored by [facility] -- Treatment Hx: --Previously on diltiazem 120 mg daily, which was discontinued in Dec 2020 due to bradycardia --Metoprolol dose was decreased due to bradycardia, then increased again in April 2022 -- Previously on Multaq 400mg BID, discontinued on April 2022 -Holter monitor on 04/13/22 showed average HR 61 bpm, sinus. A-fib 36%. -Holter monitor on 09/08/22 showed average HR 101 bpm, baseline A-fib, HR > 100 for 67% period - Plan for pacing if pt becomes symptomatic Assessment & Plan (12/25/2022 7:26 AM EST): - A-fib today, rate controlled. pt is usually asymptomatic wheter he is bradycardiac and tachycardiac -his medical records technician recommends rate control rather than rhythm control - Continue rate control with metoprolol tartrate 100 mg bid - Continue digoxin 125 mcg daily - Continue warfarin, which is monitored by [facility] -- Treatment Hx: --Previously on diltiazem 120 mg daily, which was discontinued in Dec 2020 due to bradycardia --Metoprolol dose was decreased due to bradycardia, then increased again in April 2022 -- Previously on Multaq 400mg BID, discontinued on April 2022 -Holter monitor on 04/13/22 showed average HR 61 bpm, sinus. A-fib 36%. -Holter monitor on 09/08/22 showed average HR 101 bpm, baseline A-fib, HR > 100 for 67% period - Plan for pacing if pt becomes symptomatic Transient cerebral ischemia 02/09/2018 Assessment & Plan (12/25/2022 7:28 AM EST): - TIA in January 2018 - continue secondary prevention / risk factor management Allergic rhinitis 09/01/2015 Assessment & Plan (11/08/2022 10:13 AM EST): -Continue fluticasone nasal -Continue cetirizine 5 mg daily (renal dosing) -consider adding motelukast Essential hypertension 09/01/2015 Assessment & Plan (11/05/2023 4:25 PM EST): - Goal BP < 140/90 per JNC-8, <130/80 per ACC/AHA (Tx threshold 130/80) - Individualized goal < 130/[address] Cain - Elevated today, but pt states it is normal at home and other clinic (also attributes it to pain from gout and prednisone) - Hx asymptomatic bradycardia and atrial fibrillation - Continue working on lifestyle modification. - Continue Metoprolol tartrate 100 mg BID, increased in April 2022 for rate control of Afib RVR - Treatment Hx: Diltiazem 120 mg daily was discontinued due to bradycardia; ACEI was discontinued due to recurrent GONZALO and hyperkalemia - Check home BP everyday - Follow-up in 3 mo Assessment & Plan (03/13/2023 1:22 PM EDT): Goal BP < 140/90 per JNC-8, <130/80 per ACC/AHA (Tx threshold 130/80) - Slightly elevated today, but pt states it is normal at home and other clinic - Hx asymptomatic bradycardia and atrial fibrillation - Continue working on lifestyle modification. - Continue Metoprolol 100 mg BID, increased in April 2022 for rate control of Afib RVR - Treatment Hx: Diltiazem 120 mg daily was discontinued due to bradycardia; ACEI was discontinued due to recurrent GONZALO and hyperkalemia - Check home BP everyday - Follow-up in 3 mo Assessment & Plan (12/19/2022 1:21 PM EST): Goal BP < 140/90 per JNC-8, <130/80 per ACC/AHA (Tx threshold 130/80) - Slightly elevated today, but pt states it is normal at home and other clinic - Hx asymptomatic bradycardia and atrial fibrillation - Continue working on lifestyle modification. - Continue Metoprolol 100 mg BID, increased in April 2022 for rate control of Afib RVR - Treatment Hx: Diltiazem 120 mg daily was discontinued due to bradycardia; ACEI was discontinued due to recurrent GONZALO and hyperkalemia - Check home BP everyday - Follow-up in 3 mo Assessment & Plan (11/08/2022 10:05 AM EST): -Goal BP < 140/90 per JNC-8, <130/80 per ACC/AHA (Tx threshold 130/80) - Slightly elevated today, but pt states it is normal at home and other clinic - Hx asymptomatic bradycardia and atrial fibrillation - Continue working on lifestyle modification. - Continue Metoprolol 100mg BID, increased in April 2022 for rate control of Afib RVR - Treatment Hx: Diltiazem 120 mg daily was discontinued due to bradycardia; ACEI was discontinue due to recurernt GONZALO and hyperkalemia - Check home BP everyday - Follow-up in 3 mo Peripheral venous insufficiency 03/31/2015 Gallstones 12/25/2014 Persistent microalbuminuria due to type 2 diabetes mellitus ([facility]) 12/25/2014 Type 2 diabetes mellitus 12/25/2014 Assessment & Plan (11/05/2023 4:31 PM EST): - A1C 7.0% on 10/30/23, trending up from 6.4% on 11/07/22. Likely due to recent prednisone use. - Controlled with Diet / lifestyle modification - Reviewed and updated diabetes care guideline. - Last eye exam: 01/03/22 No diabetic retinopathy. - Last foot exam: 11/11/21, tinea pedis and impaired sensation, Risk Category: 1 - Last microalbumin test: 08/18/21 UCAR 459, CKDIV with proteinuria, no longer on ACEI - Last lipid profile: 08/05/22 TC 150; TG 128; HDL 38; LDL 87 - Last dental exam: Immunizations: Up to date -Follow-up in 3 mo Assessment & Plan (03/13/2023 5:52 PM EDT): - A1C 6.4% on 11/07/22 - Controlled with Diet / lifestyle modification - Reviewed and updated diabetes care guideline. - Last eye exam: 01/03/22 No diabetic retinopathy. - Last foot exam: 11/11/21, tinea pedis and impaired sensation, Risk Category: 1 - Last microalbumin test: 08/18/21 UCAR 459, CKDIV with proteinuria, no longer on ACEI - Last lipid profile: 08/05/22 TC 150; TG 128; HDL 38; LDL 87 - Last dental exam: Immunizations: Up to date -Follow-up in 3 mo Assessment & Plan (12/25/2022 7:29 AM EST): - A1C 6.4% on 11/07/22 - Controlled with Diet / lifestyle modification - Reviewed and updated diabetes care guideline. - Last eye exam: 01/03/22 No diabetic retinopathy. - Last foot exam: 11/11/21, tinea pedis and impaired sensation, Risk Category: 1 - Last microalbumin test: 08/18/21 UCAR 459, CKDIV with proteinuria, no longer on ACEI - Last lipid profile: 08/05/22 TC 150; TG 128; HDL 38; LDL 87 - Last dental exam: Immunizations: Up to date -Follow-up in 3 mo Assessment & Plan (11/08/2022 10:09 AM EST): - A1C 6.4%, 5.8% on 08/04/22 - Controlled with Diet / lifestyle modification - Reviewed and updated diabetes care guideline. - Last eye exam: 01/03/22 No diabetic retinopathy. - Last foot exam: 11/11/21, tinea pedis and impaired sensation, Risk Category: 1 - Last microalbumin test: 08/18/21 UCAR 459, CKDIV with proteinuria, no longer on ACEI - Last lipid profile: 08/05/22 TC 150; TG 128; HDL 38; LDL 87 - Last dental exam: Immunizations: Up to date -Follow-up in 3 mo Asthma 12/24/2014 Dyslipidemia 08/12/2014 Assessment & Plan (10/30/2023 6:28 AM EST): - Current medication: Atorvastatin 40 mg at bedtime - Last lipid profile: 08/05/22 TC 150; TG 128; HDL 38; LDL 87 - Last LFT (on fibrate) On 08/05/22 stable Assessment & Plan (03/13/2023 1:14 PM EDT): - Current medication: Atorvastatin 40 mg at bedtime - Last lipid profile: 08/05/22 TC 150; TG 128; HDL 38; LDL 87 - Last LFT (on fibrate) On 08/05/22 stable Assessment & Plan (11/07/2022 5:01 AM EST): - Current medication: Atorvastatin 40 mg at bedtime - Last lipid profile: 08/05/22 TC 150; TG 128; HDL 38; LDL 87 - Last LFT (on fibrate) On 08/05/22 stable Tubular adenoma of colon 02/25/2013 Assessment & Plan (11/01/2023 4:33 PM EST): -last colonoscopy in April [address] Logan -Pt requests to be referred to [facility] where his son goes Assessment & Plan (12/25/2022 7:05 AM EST): -last colonoscopy in April [address] Logan Assessment & Plan (11/08/2022 10:08 AM EST): -last colonoscopy in April [address] 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 pt is usually asymptomatic wheter he is bradycardiac and tachycardiac -his medical records technician recommends rate control rather than rhythm control - Continue rate control with metoprolol tartrate 100 mg bid, increased in April 2022. - Previously on Multaq 400mg BID and discontinued on April 2022 - Plan for pacing if pt develops tachy - mary lou syndrome or symptomatic mary lou -- Treatment Hx: Previously on diltiazem 120 mg daily, which was discontinued in Dec 2020 due to bradycardia, Metoprolol dose was decreased -Continue Coumadin, which is monitored by [facility] anticoagulation [facility]. -Holter monitor on 04/13/22 showed average HR 61 bpm, sinus. A-fib 36%. -Holter monitor on 09/08/22 showed average HR 101 bpm, baseline A-fib, HR > 100 for 67% period -Pt states he has been taking digoxin. Will confirm it with medical records technician. Mild intermittent asthma 09/01/201503/2023 Encounters Date Type Department Care Team Description 09/26/2024 Refill [facility] [address] [place] [address] Sherry Ward MD Dyslipidemia from Last 3 Months Immunizations Name Administration Dates Next Due Hep B, adult 09/20/2010,04/14/2010,03/16/2010 Influenza High-dose Quadriva lent Preservative Free 08/09/2023,08/04/2022,08/16/2021,09/22 Influenza injectable quadriv alent IIV4 with preservative 10/10/2016 Influenza injectable quadriv alent preservative free 08/20/2015 Influenza, High Dose Seasona l, Preservative Free 09/24/2019,08/13/2018,09/06/2017 Influenza, IIV3, injectable 09/25/2018,0 08/12/2014,08/17/2011,08/16 Influenza, Split (incl. quoc fied surface antigen) 07/16/2012 Pneumococcal Conjugate PCV 13 06/18/2015 Pneumococcal Polysaccharide PPSV23 03/21/2016, TD (adult), 2 Lf tetanus tox oid, preservative free, adsorbed 04/14/2010 Tdap 02/10/2022,02/09/2012 Varicella 03/12/2010 Zoster, Recombinant 07/09/2020,01/01/2020 Zoster, live 07/16/2013 Social History Tobacco Use Types Packs/Day Years Used Date Smoking Tobacco: Former Cigarettes Passive Smoke Exposure: Past Smokeless Tobacco: Never Tobacco Cessation:Counseling Given: Not Answered Housing Stability Answer Date Recorded What is your housing situation today? I have chasesarah burch 09/09/[address] you li ve. Do you have problems with any of the following? None of the above 09/09/2023 Food Insecurity Answer Date Recorded Within the past 12 months, y ou worried that your food would run out before you got money to buy more: Never True 09/04/2023 Within the past 12 months,th e food you bought just didn't last and you didn't have enough money to get more: Never True Transportation Answer Date Recorded In the past 12 months, has l ack of transportation kept you from medical appts, meetings, work or from getting things needed for daily living? I am not sure 09/09/2023 Utilities Answer Date Recorded In the past 12 months, has t he electric, gas, oil or water company threatened to shut off services in your home? No 09/04/2023 Depression Answer Date Recorded Patient Health Questionnaire-2 Score 0 11/07/2022 Sex and Gender Information Value Date Recorded Sex Assigned at Male 09/19/2022 10:21 AM EDT Legal Sex Male 10:21 AM EDT Gender Identity Male 09/19/2022 10:21 AM EDT Sexual Orientation Straight 09/19/2022 10 :21 AM EDT Last Filed Vital Signs Vital Sign Reading Time Taken Comments Blood Pressure 149/92 10/30/2023 2:03 PM EST Pulse 76 10/30/2023 2:03 PM EST Temperature 36.8 ??C (98.2 ??F) 03/13/2023 1:09 PM ED T Respiratory Rate 12 10/30/2023 2:03 PM EST Oxygen Saturation 95% 03/13/2023 1:09 PM EDT Inhaled Oxygen Concentration - - Weight 85.8 kg (189 lb 3.2 oz) 10/30/2023 2:03 P M EST Height 165.1 cm (5' 5 ) 10/30/2023 2:03 PM EST Body Mass Index 31.48 10/30/2023 2:03 PM EST Plan of Treatment Health Maintenance Due Date Last Done Comments CT Colonography 1950 FIT DNA/Cologuard 1950 FIT 1950 FOBT 1950 Sigmoidoscopy 1950 Diabetes: Foot Exam 1960 Eye Exam 1960 Alcohol/Substance Use Screening 1962 Hepatitis C Screening 1968 RSV Patients and Patients Aged 60 years or older (1 - Risk 60-74 years 1-dose series) 2010 Depression Screening 11/07/2023 11/07/2022, 11/07/20 22 Diabetes: Hemoglobin A1C 01/29/2024 023, 11/07/2022, 08/18/2021 Colonoscopy 04/22/2024 04/22/2019 Colorectal Cancer Screening 04/22/2024 COVID-19 Vaccine ( season) 2024 11/11/2021, 02/16/2021, 01/19/2021 Influenza Vaccine (#1) 2024 , 08/04/2022, 08/16/2021, Additional history exists SDOH Screening 09/09/2024 09/09/2023 Lipid Panel 10/30/2024 10/30/2023, 10/20, 08/05/2022, Additional history exists Tobacco Screening 10/30/2024 10/30/2023 DTaP/Tdap/Td Vaccines (3 - Td or Tdap) 02/11/2032 02/10/2022, 02/09/2012, 04/14/2010 Hepatitis B Vaccines Completed 09/20/2010, 04/14/2010, 03/16/2010 Pneumococcal Vaccine: 50+ Years Completed 03/21/2016, 06/18/2015, 04/14/2010 Zoster Vaccines Completed 07/09/2020, 12/21, 07/16/2013 HIB Vaccines Aged Out No longer eligi ble based on patient's age to complete this topic HPV Vaccines Aged Out No longer eligi ble based on patient's age to complete this topic Hepatitis A Vaccines Aged Out No long er eligible based on patient's age to complete this topic IPV Vaccines Aged Out No longer eligi ble based on patient's age to complete this topic Meningococcal Vaccine Aged Out No mari loyd eligible based on patient's age to complete this topic RSV under 20 months Aged Out No longe r eligible based on patient's age to complete this topic Rotavirus Vaccines Aged Out No longer eligible based on patient's age to complete this topic Goals Goal Patient Goal Type Associated Problems Recent Progress Patient-Stated? Author Blood Pressure < 140/90 Blood Pressure 149/92( 023 2:03 PM EST) No Robe Parker, IrisD Procedures Procedure Name Priority Date/Time Associated Diagnosis Comments LIPID PANEL WITH REFLEX TO DIRECT LDL Routine 10/30/2023 2:57 PM EST Dyslipidemia POCT GLYCOSYLATED HEMOGLOBIN (HGB A1C) Routine 10/30/2023 2:23 PM EST Type 2 diabetes mellitus with stage 4 chronic kidney disease, without long-term current use of insulin ([facility] [facility]) COLONOSCOPY Routine 04/22/2019 from Last 3 Months or Most Recently Relevant to Health Maintenance Results * (ABNORMAL) Lipid Panel with Reflex to Direct LDL (10/30/2023 2:57 PM EST) Triglycerides 433(H) <150 mg/dL [facility] Comment:Desirable Triglyceri de: less than 150 mg/dLBorderline High Triglyceride 150-199 mg/dLHigh Triglyceride: 200-499 mg/dLVery High Triglyceride: greater than or equal to 5OO mg/dL Cholesterol 266(H) <200 mg/dL [facility] Comment:Desirable Cholestero l: less than 200 mg/dLBorderline High Cholesterol: 200-239 mg/dLHigh Cholesterol: greater than 239 mg/dL LDL Cholesterol Calculated TNP <100 mg/dL [facility] Comment:Unable to calculate the LDL. The formula of Friedwald,Olsen, and Stefanie is only valid if the triglycerides areless than 400 mg/dl. HDL Cholesterol 28(L) >40 mg/dL [facility] Comment:Desirable HDL: great er than 40 mg/dL Note: This HDL assay may give artificially low results in patients with liver disease. Blood 10/30/2023 2:57 PM EST 10/30/2023 3:58 PM EST us Sherry Ward MD LAB BLOOD ORDERABLES Final Resul t [facility] [address] [place] [address] [phone] * (ABNORMAL) POCT glycosylated hemoglobin (Hgb A1c) (10/30/2023 2:23 PM EST) Hemoglobin A1C 7.1(A) 4.0 - 6.0 % QC Media Lot # [id number] Lot# Expiration Date Blood Capillary blood specimen / Unknown 10/30/2023 2:23 PM EST Sherry Ward MD POINT OF CARE TEST ENTER/EDIT OR DERABLES Final Result * Colonoscopy (04/22/2019) Colonoscopy Normal Normal Historical Provider HEALTH MAINTENANCE Final Result from Last 3 Months or Most Recently Relevant to Health Maintenance Insurance [facility] DUAL COMPLETE [facility] ST[facility] Care Teams Soil Analyst Relationship Specialty Start Date End Date Robe Parker, PharmD [address] [place] [address] Pharmacist Internal Medicine 06/15/23
--- OUTSIDE RECORDS SUMMARY | 2024-12-23 16:05 | XMS_ITS | Encounter Summary ---
Author Organization [facility] [employer] Address [address] [place] [address] 7t [place] [address] Care Team Providers Care Warehouse Packer Name Role Phone Sherry Ward MD Primary Care Provider [phone] Keith Robe PharmD Unavailable [phone] Encounter Details Date Type Department Care Team ([facility] st Contact Info) Description 01/23/2023 Orders Only [facility] MEDICINE [address] [place], [place] [phone] Nivia Serraot MD [address] [place] [address] Hyperkalemia (Primary Dx) Social History Tobacco Use Types Packs/Day Years Used Date Smoking Tobacco: Never Passive Smoke Exposure: Never Smokeless Tobacco: Never Depression Answer Date Recorded Patient Health Questionnaire-2 Score 0 11/07/2022 Sex and Gender Information Value Date Recorded Sex Assigned at Male 09/19/2022 10:21 AM EDT Legal Sex Male 10:21 AM EDT Gender Identity Male 09/19/2022 10:21 AM EDT Sexual Orientation Straight 09/19/2022 10 :21 AM EDT documented as of this encounter Plan of Treatment Scheduled Orders Name Type Priority Associated Diagnoses Orde r Schedule Basic Metabolic Panel Lab Routine Hyperkalemia Expected: 01/23/2023 (Approximate), Expires: 01/24/2024 documented as of this encounter Visit Diagnoses Diagnosis Hyperkalemia- Primary Hyperpotassemia documented in this encounter Care Teams Warehouse Packer Relationship Specialty Start Date End Date Sherry Ward MD [address] [place], [place] [phone] PCP - General Family Medicine 11/20/18 12/17/23 Robe Parker, PharmD [address] [place] [phone] Pharmacist Internal Medicine 06/15/23 documented as of this encounter
--- OUTSIDE RECORDS SUMMARY | 2024-12-23 16:05 | XMS_ITS | Clinical Summary ---
Author Organization [facility] Address [address] [place] [address] Phone Care Team Providers Care Director Physical Name Role Phone Joycelyn Brothers DO Primary Care Provider Unava ilable Allergies Active Allergy Reactions Criticality Noted Date Comments Lisinopril Other (see comments) 09/21/2012 Medications cholecalciferol (VITAMIN D-3) 25 MCG (1000 UT) capsule Take 1 capsule by mouth 1 (one) time each day Active fenofibrate (TRIGLIDE) 160 MG tablet Take 1 tablet by mouth 1 (one) time each day Active gabapentin (NEURONTIN) 100 MG capsule Take 2 capsules by mouth 1 (one) time each day Active metoprolol tartrate (LOPRESSOR) 100 MG tablet Take 1 tablet by mouth 1 (one) time each day in the evening Active warfarin (COUMADIN) 5 MG tablet Take 1 tablet by mouth 1 (one) time each day Active cetirizine (ZyrTEC) 5 MG tablet Take 5 mg by mouth 1 (one) time each day 03/04/2021 Active atorvastatin (LIPITOR) 80 MG tablet Take 80 mg by mouth 1 (one) time each day 04/19/2023 Active digoxin (LANOXIN) 125 MCG tablet Take 125 mcg by mouth 1 (one) time each day 05/19/2023 Active fluticasone (FLONASE) 50 MCG/ACT nasal spray INHALE 1 SPRAY IN EACH NOSTRIL ONCE DAILY IN THE MORNING. SHAKE WELL DIRECTED 05/19/2023 Active meclizine (ANTIVERT) 25 MG tablet Take 25 mg by mouth every 12 (twelve) hours 06/15/2023 Active Active Problems Problem Noted Date Diagnosed Date Encounter for other preprocedural examination Gallstone 01/26/2024 Borborygmi 01/26/2024 Abdominal bloating 01/26/2024 Screening for malignant neoplasm of colon 2023 History of adenomatous polyp of colon 01/26/2024 Tinnitus 03/21/2023 assisted current use of anticoagulant Overview (01/26/2024): Last Assessment & Plan: - indication: Atrial fibrilation - medication: warfarin - monitored by [facility] - most recent INR 1.6 on 03/08/23 - continue current treatment plan Hyperkalemia 03/21/2023 Overview (01/26/2024): Last Assessment & Plan: - on Patiromer every other day - will change its instruction - will check if he can take Lokelma, rather than Veltassa Vertigo 12/19/2022 Overview (01/26/2024): Last Assessment & Plan: - MRI completed on 12/14/22 No acute intracranial process. 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 - seen by neurologist, Dr. Lindsey on 02/15/23. Impression was BPPV. Prescribed meclizine. - continue meclizine. History of Lyme disease 11/08/2022 Hypertriglyceridemia 11/07/2022 Overview (01/26/2024): Last Assessment & Plan: - Current medication: fenfibrate 160 mg daily (on atorvastatin 40 mg) - Last lipid profile: 08/05/22 TC 150; TG 128; HDL 38; LDL 87 - Last LFT lab on 08/05/22 stable Abdominal aortic aneurysm without rupture 2021 Thoracic aortic aneurysm without rupture 022 Chronic interstitial nephritis 04/02/2021 Chronic kidney disease stage 3 04/02/2021 Essential hypertension 04/02/2021 Proteinuria 04/02/2021 Chronic kidney disease stage 4 04/02/2021 Overview (01/26/2024): Last Assessment & Plan: -Freelance Data Entry: Dr. Roland, last seen in 12/27/21 -Baseline SCr 2.4-2.8; eGFR 22-26, CrCl 28.5 -Most recent lab: 08/05/22 K 5.2, BUN 46, SCr 2.48; eGFR 26 -Avoid nephrotoxic drugs/substances and behaviors, including NSAIDs use. -Renal dose medications. Tinea pedis 04/30/2018 Ischemic heart disease 04/30/2018 Overview (01/26/2024): Last Assessment & Plan: -Spa Supervisor, Dr. Cain, seen on 11/10/22 -TIA in January 2018. Dx Afib. Started on Coumadin. -03/14/18 BRITTANY to distal RCA. Completed uninterrupted Plavix and Coumadin therapy for 1 year. Plan was to swithc Plavix to ASA. Pt is not on ASA or Plavix at this time because his CAD is stable per embossograph operator. - Last echo in 12/28/21: Normal LV function, EF 55-60%. slight decrease from last echo. mild GERD reguigitation -Continue current medications History of placement of stent for coronary arter y disease 04/30/2018 Chronic atrial fibrillation 02/09/2018 Overview (01/26/2024): Last Assessment & Plan: A-fib today, rate controlled. pt is usually asymptomatic whether he is bradycardia and tachycardia -his embossograph operator recommends rate control rather than rhythm control - Continue rate control with metoprolol tartrate 100 mg bid - Continue digoxin 125 mcg daily - Continue warfarin, which is monitored by [facility] Anticoagulation clinic -- Treatment Hx: --Previously on [...] pt becomes symptomatic Transient cerebral ischemia 02/09/2018 Overview (01/26/2024): Last Assessment & Plan: - TIA in January 2018 - continue secondary prevention / risk factor management Allergic rhinitis 09/01/2015 Overview (01/26/2024): Last Assessment & Plan: -Continue fluticasone nasal -Continue cetirizine 5 mg daily (renal dosing) -consider adding motelukast Essential hypertension 09/01/2015 Overview (01/26/2024): Last Assessment & Plan: Goal BP < 140/90 per JNC-8, <130/80 [...] in 3 mo Peripheral venous insufficiency 03/31/2015 Cholelithiasis without obstruction 12/25/2014 Type 2 diabetes mellitus 12/25/2014 Overview (01/26/2024): Last Assessment & Plan: - A1C 6.4% on 11/07/22 - Controlled [...] Up to date -Follow-up in 3 mo Persistent microalbuminuria due to type 2 diabet es mellitus 12/25/2014 Asthma 12/24/2014 Dyslipidemia 08/12/2014 Overview (01/26/2024): Last Assessment & Plan: - Current medication: Atorvastatin 40 mg at bedtime - Last lipid profile: 08/05/22 TC 150; TG 128; HDL 38; LDL 87 - Last LFT (on fibrate) On 08/05/22 stable Tubular adenoma of colon 02/25/2013 Overview (01/26/2024): Last Assessment & Plan: -last colonoscopy in April [address] 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 Glaucoma 10/08/2012 Family History Medical History Relation Comments Diabetes Father Heart disease Father Diabetes Mother Kidney disease Mother Diabetes Sibling 1 Heart disease Sibling 2 Relation Status Comments Father Unknown Mother Unknown Sibling 1 Sibling 2 Social History Tobacco Use Types Packs/Day Years Used Date Smoking Tobacco: Former Cigarettes Q uit: 11/20/2013 Smokeless Tobacco: Never Tobacco Cessation:Counseling Given: Not Answered Sex and Gender Information Value Date Recorded Sex Assigned at Not on file Legal Sex Male 5:02 PM EST Gender Identity Not on file Sexual Orientation Not on file Last Filed Vital Signs Vital Sign Reading Time Taken Comments Blood Pressure 142/100 06/26/2023 3:05 PM EDT Pulse 63 06/26/2023 3:05 PM EDT Temperature - - Respiratory Rate - - Oxygen Saturation 97% 09/15/2022 3:13 PM EDT Inhaled Oxygen Concentration - - Weight 86.3 kg (190 lb 3.2 oz) 06/26/2023 3:05 P M EDT Height 167.6 cm (5' 6 ) 09/15/2022 3:13 PM EDT Body Mass Index 30.7 09/15/2022 3:13 PM EDT Plan of Treatment Health Maintenance Due Date Last Done Comments Colorectal Cancer Screening: Annual FOBT 1999 Colorectal Cancer Screening: Colonoscopy 1999 Colorectal Cancer Screening: Sigmoidoscopy 1999 Diabetes: Hemoglobin A1C 06/26/2023 Diabetes: Ophthalmology Exam 06/26/2023 Diabetes: Pedal Pulse Checked 06/26/2023 Diabetes: Sensory Foot Exam 06/26/2023 Diabetes: Visual Foot Exam 06/26/2023 Influenza Vaccine (#1) 2024 9, 08/13/2018, 09/06/2017, Additional history exists Hepatitis B Vaccine Aged Out 09/20/2010, 04/14/2010, 03/16/2010 No longer eligible based on patient's age to complete this topic Pneumococcal Vaccine: 65+ Years Completed 03/21/2016, 06/18/2015, 04/14/2010 Insurance DUAL COMPLETE ([id number]) DUAL COMPLETE ([id number]) Care Teams Director Physical Relationship Specialty Start Date End Date Joycelyn Brothers DO PCP - General 11/30/20
--- OUTSIDE RECORDS SUMMARY | 2024-12-23 16:05 | XMS_ITS | Encounter Summary ---
Author Organization [employer] Address [address] [facility] 7t [place] [address] Care Team Providers Care Absorption Plant Operator Helper Name Role Phone Sherry Ward MD Primary Care Provider [phone] Keith Robe PharmD Unavailable [phone] Encounter Details Date Type Department Care Team (Late st Contact Info) Description 11/02/2023 Orders Only [facility] MEDICINE [address] [place], [place] [phone] Sherry Ward MD [address] [place], [place] [phone] Left foot pain (Primary Dx) Social History Tobacco Use Types Packs/Day Years Used Date Smoking Tobacco: Former Cigarettes Passive Smoke Exposure: Past Smokeless Tobacco: Never Housing Stability Answer Date Recorded What is your housing situation today? I have chase burch 09/09/[address] you [...] Type Priority Associated Diagnoses Orde r Schedule XR Foot 3+ Views Left Imaging Routine Left foot pain Expected: 11/02/2023, Expires: 11/02/2024 documented as of this encounter Goals Goal Patient Goal Type Associated Problems Recent Progress Patient-Stated? Author Blood Pressure < 140/90 Blood Pressure 149/92( 023 2:03 PM EST) No Robe Parker, Gabby documented as of this encounter Visit Diagnoses Diagnosis Left foot pain- Primary Pain in soft tissues of limb documented in this encounter Care Teams Absorption Plant Operator Helper Relationship Specialty Start Date End Date Sherry Ward MD [address] [place] [address] PCP - General Family Medicine 11/20/18 12/17/23 Robe Parker, IrisD [address] [place] [address] Pharmacist Internal Medicine 06/15/23 documented as of this encounter
--- OUTSIDE RECORDS SUMMARY | 2024-12-23 16:05 | XMS_ITS | Encounter Summary ---
Author Organization [employer] Address [address] [place] [address] 7t [place] [address] Care Team Providers Care Thimble Press Operator Name Role Phone Sherry Ward MD Primary Care Provider [phone] Robe Parker PharmD Unavailable [phone] Encounter Details Date Type Department Care Team (Late st Contact Info) Description 11/04/2022 Orders Only [facility] MEDICINE [address] [place] [address] Sharon Ko, RN Social History Tobacco Use Types Packs/Day Years Used Date Smoking Tobacco: Never Assessed Depression Answer Date Recorded Patient Health Questionnaire-2 Score 0 11/07/2022 Sex and Gender Information Value Date Recorded Sex Assigned at Male 09/19/2022 10:21 AM EDT Legal Sex Male 10:21 AM EDT Gender Identity Male 09/19/2022 10:21 AM EDT Sexual Orientation Straight 09/19/2022 10 :21 AM EDT COVID-19 Exposure Response Date Recorded In the last 10 days, have yo u been in contact with someone who was confirmed or suspected to have Coronavirus/COVID-19? No / Unsure 11/07/2022 10:25 AM EST documented as of this encounter Plan of Treatment Not on file documented as of this encounter Visit Diagnoses Not on filedocumented in this encounter Care Teams Thimble Press Operator Relationship Specialty Start Date End Date Sherry Ward MD [address] [place] [address] PCP - General Family Medicine 11/20/18 12/17/23 Robe Parker, PharmD [address] [place] [address], [place] [address] Pharmacist Internal Medicine 06/15/23 documented as of this encounter
--- OUTSIDE RECORDS SUMMARY | 2024-12-23 16:05 | XMS_ITS | Encounter Summary ---
Author Organization [facility] Address [address] [facility] [address] [place] [address] Phone Care Team Providers Care Patient Access Representative Name Role Phone Joycelyn Brohters DO Primary Care Provider Ema ilva Encounter Details Date Type Department Care Team (Late st Contact Info) Description 05/29/2021 Orders Only [facility] [address] [place] [phone] Alex Garcia MD Chronic kidney disease stage 4 (HCC) Social History Tobacco Use Types Packs/Day Years Used Date Smoking Tobacco: Former Cigarettes Q uit: 11/20/2013 Smokeless Tobacco: Never Sex and Gender Information Value Date Recorded Sex Assigned at Not on file Legal Sex Male 5:02 PM EST Gender Identity Not on file Sexual Orientation Not on file documented as of this encounter Plan of Treatment Not on file documented as of this encounter Procedures Procedure Name Priority Date/Time Associated Diagnosis Comments AMB REFERRAL TO SLEEP MEDICINE Routine 08/11/2021 11:20 AM EDT Chronic kidney disease stage 4 (HCC) documented in this encounter Results * Ambulatory referral to Sleep Medicine (08/11/2021 11:20 AM EDT) Alex Garcia MD OUTPATIENT REFERRAL ORDERABLES Final Result documented in this encounter Visit Diagnoses Diagnosis Chronic kidney disease stage 4 (HCC) documented in this encounter Care Teams Patient Access Representative Relationship Specialty Start Date End Date Joycelyn Brothers DO PCP - General 11/30/20 documented as of this encounter
--- OUTSIDE RECORDS SUMMARY | 2024-12-23 16:05 | XMS_ITS | Encounter Summary ---
Author Organization [employer] Address [address] [facility] 7t [place] [address] Care Team Providers Care Dip Filler Name Role Phone Robe Parker PharmD Unavailable [phone] Reason for Visit * Reason Comments Med Refill Encounter Details Date Type Department Care Team ([facility] st Contact Info) Description 08/05/2024 Refill [facility] MEDICINE [address] [place], [place] [phone] Sherry Ward MD [address] [place], [place] [phone] Social History Tobacco Use Types Packs/Day Years [...] on file documented as of this encounter Goals Goal Patient Goal Type Associated Problems Recent Progress Patient-Stated? Author Blood Pressure < 140/90 Blood Pressure 149/92( 023 2:03 PM EST) No Robe Parker, PharmD documented as of this encounter Visit Diagnoses Not on filedocumented in this encounter Care Teams Dip Filler Relationship Specialty Start Date End Date Robe Parker, IrisD [address] [place] [address] Pharmacist Internal Medicine 06/15/23 documented as of this encounter
--- OUTSIDE RECORDS SUMMARY | 2024-12-23 16:05 | XMS_ITS | Encounter Summary ---
Author Organization [facility] Address [address] [place] [address] Phone Care Team Providers Care Customs Compliance Specialist Name Role Phone Joycelyn Brothers DO Primary Care Provider Unava ilable Encounter Details Date Type Department Care Team (Late st Contact Info) Description 11/08/2022 Telephone [facility] [address] [place] [address] Alex Garcia MD Social History Tobacco Use Types Packs/Day Years Used Date Smoking Tobacco: Former Cigarettes Q uit: 11/20/2013 Smokeless Tobacco: Never Sex and Gender Information Value Date Recorded Sex Assigned at Not on file Legal Sex Male 5:02 PM EST Gender Identity Not on file Sexual Orientation Not on file documented as of this encounter Miscellaneous Notes * Telephone Encounter - Rachel Jimenez - 11/10/2022 10:34 AM EST All set * Telephone Encounter - Jeny Martinez - 11/08/2022 11:47 AM EST Pts pcp called, his potassium is mildly elevated and they would like to know if its ok for him to start veltassa . She also wants to add that his anesthesiologist and critical care started him on digoxin 0.1 mg daily. Please advise Thank you CB# [phone] documented in this encounter Plan of Treatment Not on file documented as of this encounter Visit Diagnoses Not on filedocumented in this encounter Care Teams Customs Compliance Specialist Relationship Specialty Start Date End Date Joycelyn Brothers DO PCP - General 11/30/20 documented as of this encounter
--- OUTSIDE RECORDS SUMMARY | 2024-12-23 16:05 | XMS_ITS | Encounter Summary ---
Author Organization [employer] Address [address] [place] [address] [address] [place] [address] Care Team Providers Care Disaster Recovery Coordinator Name Role Phone Sherry Ward MD Primary Care Provider [phone] Parker Robe PharmD Unavailable [phone] Reason for Visit * Reason Onset Date Comments triage 11/25/2022 Encounter Details Date Type Department Care Team ([facility] st Contact Info) Description 11/25/2022 Telephone [facility] MEDICINE [address] [place], [place] [phone] Sherry Ward MD [address] [place], [place] [phone] triage Social History Tobacco Use Types Packs/Day Years [...] AM EST documented as of this encounter Miscellaneous Notes * Telephone Encounter - Rivka Putnam RN - 11/25/2022 4:06 PM EST Triage call with Cardiovascular Simulation Director Of Social Media Marketing [place] [id number] Pt reports son came over this morning to test with home test. Pt isn't sure if it is positive and is requesting medication. Pt reports has had Covid before . Pt is unable to come to [facility] today for further testing. Pt symptoms are diarrhea daily but, Pt is taking medication to remove potassium and considers this is what is causing the diarrhea. Pt also reports mild sore throat and headache. Pt is advised to increase fluid intake, monitor for fever, cough , worsening of symptoms. Obtain another home test if possible. If symptoms worsen and definite positive home test, call Monday and will triageagain. Pt agrees with this disposition and will call Monday. Protocol Used: COVID-19 - Diagnosed or Suspected (Adult) Protocol-Based Disposition: Home Care Positive Triage Question: * [1] COVID-19 infection suspected by caller or triager AND [2] mild symptoms (cough, fever, or others) AND [3] has not gotten tested yet * All higher-acuity triage questions were negative Care Advice Discussed: * Reassurance and Education - Positive COVID-19 Lab Test and Mild Symptoms * Reassurance and Education - Suspected COVID-19 and Testing Needed * General Care Advice for COVID-19 Symptoms * Cough Medicines * Cough Syrup With Dextromethorphan * Cough Syrup With Dextromethorphan - Extra Notes and Warnings * Humidifier * Coughing Spells * Pain and Fever Medicines * Pain and Fever Medicines - Extra Notes and Warnings * Mild Stomach and Intestinal Symptoms During COVID-19 Illness * Reasons To Call Back - Fever over 103 F (39.4 C) - Fever lasts over 3 days - Fever returns after being gone for 24 hours - Chest pain or difficulty breathing occurs - You become worse * COVID-19 - Symptoms * Telephone Encounter - Guerrero Krishnamurthy - 11/25/2022 12:25 PM EST Symptoms: Cough, Diarrhea, Sore Throat, COVID-19 Suspected Outcome: Schedule a same-day appointment or talk to a nurse or provider today Reason: No high acuity concerns reported by caller The caller accepted this outcome documented in this encounter Plan of Treatment Not on file documented as of this encounter Visit Diagnoses Not on filedocumented in this encounter Care Teams Disaster Recovery Coordinator Relationship Specialty Start Date End Date Sherry Ward MD [address] [place] [address] PCP - General Family Medicine 11/20/18 12/17/23 Robe Parker PharmD [address] [place] [address] Pharmacist Internal Medicine 06/15/23 documented as of this encounter
--- OUTSIDE RECORDS SUMMARY | 2024-12-23 16:05 | XMS_ITS | Encounter Summary ---
Author Organization [employer] Address [address] [place] [address] 7t [place] [address] Care Team Providers Care Tapper Helper Name Role Phone Sherry Ward MD Primary Care Provider [phone] Robe Parker PharmD Unavailable [phone] Reason for Referral * Imaging (Routine) - Closed Specialty Diagnoses / Procedures Referred By Contac t Referred To Contact Diagnoses Vertigo Ischemic heart disease Chronic atrial fibrillation (CMS/HCC) Essential hypertension Procedures Mr Brain w/ and w/o Contrast Sherry Ward MD [address] [place] [address] Phone: tel: fax: [facility] [place] and CT Scan [address] [place], [place] Phone: tel: fax: Referral ID Status Reason Start Date Expiration Date Visits Re quested Visits Authorized [id number] Closed 11/17/2022 11/17/2023 1 1 Encounter Details Date Type Department Care Team (Late st Contact Info) Description 11/08/2022 Orders Only [facility] MEDICINE [address] [place], [place] [phone] Sherry Ward MD [address] [place], [place] [phone] Vertigo (Primary Dx); Ischemic heart disease; Chronic atrial fibrillation (CMS/HCC); Essential hypertension Social History Tobacco Use Types Packs/Day Years [...] Type Priority Associated Diagnoses Orde r Schedule Mr Brain w/ and w/o Contrast Imaging Routine Vertigo Ischemic heart disease Chronic atrial fibrillation (CMS/HCC) Essential hypertension Expected: 12/18/2022, Expires: 11/17/2023 documented as of this encounter Visit Diagnoses Diagnosis Vertigo- Primary Dizziness and giddiness Ischemic heart disease Other specified forms of chronic ischemic heart disease Chronic atrial fibrillation (CMS/HCC) Atrial fibrillation Essential hypertension Unspecified essential hypertension documented in this encounter Care Teams Tapper Helper Relationship Specialty Start Date End Date Sherry Ward MD [address] [place] [address] PCP - General Family Medicine 11/20/18 12/17/23 Robe Parker, IrisD [address] [place] [address] Pharmacist Internal Medicine 06/15/23 documented as of this encounter
--- OUTSIDE RECORDS SUMMARY | 2024-12-23 16:05 | XMS_ITS | Encounter Summary ---
Author Organization [employer] Address [address] [facility] 7t [place] [address] Care Team Providers Care Sonography Technician Name Role Phone Sherry Ward MD Primary Care Provider [phone] Parker Robe PharmD Unavailable [phone] Reason for Visit * Reason Onset Date Comments Lab Request 01/16/2023 Patient walked i n requesting for lab examination to see potassium levels. Patient has been on kayexalate for a month already and would like to see how his levels are doing. Encounter Details Date Type Department Care Team (Late st Contact Info) Description 01/16/2023 Telephone [facility]INE [address] [place] [address] Sherry Ward MD [address] [place] [address] Lab Request (Patient walked in requesting for lab examination to see potassium levels. Patient has been on kayexalate for a month already and would like to see how his levels are doing. ) Social History Tobacco Use Types Packs/Day Years [...] suspected to have Coronavirus/COVID-19? No / Unsure 12/19/2022 12:51 PM EST documented as of this encounter Miscellaneous Notes * Telephone Encounter - Soo Snyder RN - 01/23/2023 1:24 PM EST T/C placed to pt to inform labs ordered, can go at anytime to get them drawn. Pt states forgot to tell us but he wants to get them done at [facility]. Informed we would have to change the order. I apologize, is there anyway you can change order so it is not [facility]? Thanks * Telephone Encounter - Soo Snyder RN - 01/23/2023 11:01 AM EST Pt on patiromer sorbitex calcium powder. Is requesting labs to recheck his potassium. Patient walked in requesting for lab examination to see potassium levels. Patient has been on kayexalate for a month already and would like to see how his levels are doing. * Telephone Encounter - Cami Fiore LPN - 01/16/2023 11:00 AM EST Critical Result line call received at this time. INR 1.4 today Warfarin 5mg today . . Recheck on Monday. RN unsure if additional labs indicated as patient has been running low. Wonders if Potassium is affecting level. Patient reports med compliance. documented in this encounter Plan of Treatment Not on file documented as of this encounter Visit Diagnoses Not on filedocumented in this encounter Care Teams Sonography Technician Relationship Specialty Start Date End Date Sherry Ward MD [address] [place] [address] PCP - General Family Medicine 11/20/18 12/17/23 Robe Parker, PharmD [address] [place] [address] Pharmacist Internal Medicine 06/15/23 documented as of this encounter
--- OUTSIDE RECORDS SUMMARY | 2024-12-23 16:05 | XMS_ITS | Encounter Summary ---
Author Organization [employer] Address 75 [facility] 7t [place] [address] Care Team Providers Care Cooker Casing Name Role Phone Sherry Ward MD Primary Care Provider [phone] Keith Robe PharmD Unavailable [phone] Encounter Details Date Type Department Care Team ([facility] st Contact Info) Description 11/02/2023 Orders Only [facility] [address] [place], [place] [phone] Sherry Ward MD [address] [place], [place] [phone] Social History Tobacco Use Types Packs/Day Years [...] on filedocumented in this encounter Care Teams Cooker Casing Relationship Specialty Start Date End Date Sherry Ward MD [address] [place] [address] PCP - General Family Medicine 11/20/18 12/17/23 Robe Parker, PharmD [address] [place] [address] Pharmacist Internal Medicine 06/15/23 documented as of this encounter
--- OUTSIDE RECORDS SUMMARY | 2024-12-23 16:05 | XMS_ITS | Encounter Summary ---
Author Organization [employer] Address [address] [place] [address] 7t [place] [address] Care Team Providers Care Safety Investigator/Cause Analyst Name Role Phone Sherry Ward MD Primary Care Provider [phone] Robe Parker PharmD Unavailable [phone] Reason for Visit * Reason Onset Date Comments Anticoagulation 12/21/2022 Encounter Details Date Type Department Care Team ([facility] st Contact Info) Description 12/21/2022 Telephone [facility] MEDICINE 230 [place], [place] [phone] Sherry Ward MD [address] [place], [place] [phone] Anticoagulation Social History Tobacco Use Types Packs/Day Years [...] encounter Miscellaneous Notes * Telephone Encounter - Cami Fiore LPN - 12/21/2022 11:10 AM EST Critical Result line call received at this time. Katy at [facility] reports today that Pt. INR is 1.4 Warfarin dose today 7.5mg 5mg abd Monday 2.5 mg Monday and 5mg Monday Recheck Monday. Please call Katy CURRAN if needed. documented in this encounter Plan of Treatment Not on file documented as of this encounter Visit Diagnoses Not on filedocumented in this encounter Care Teams Safety Investigator/Cause Analyst Relationship Specialty Start Date End Date Sherry Ward MD [address] [place] [address] PCP - General Family Medicine 11/20/18 12/17/23 Robe Parker, PharmD [address] [place] [address] Pharmacist Internal Medicine 06/15/23 documented as of this encounter
--- OUTSIDE RECORDS SUMMARY | 2024-12-23 16:05 | XMS_ITS | Encounter Summary ---
Author Organization [employer] Address 75 [facility] 7t [place] [address] Care Team Providers Care Career Services Director Name Role Phone Robe Parker PharmD Unavailable [phone] Reason for Visit * Reason Comments Med Refill Encounter Details Date Type Department Care Team ([facility] st Contact Info) Description 09/26/2024 Refill [facility] MEDICINE [address] [place], [place] [phone] Sherry Ward MD [address] [place], [place] [phone] Dyslipidemia Social History Tobacco Use Types Packs/Day Years [...] as of this encounter Visit Diagnoses Diagnosis Dyslipidemia Other and unspecified hyperlipidemia documented in this encounter Care Teams Career Services Director Relationship Specialty Start Date End Date Robe Parker PharmD [address] [place] [address] Pharmacist Internal Medicine 06/15/23 documented as of this encounter
--- OUTSIDE RECORDS SUMMARY | 2024-12-23 16:06 | XMS_ITS | Encounter Summary ---
Author Organization [employer] Address 75 [facility] 7t [place] [address] Care Team Providers Care Technical Support 1 Software Engineer Name Role Phone Robe Parker PharmD Unavailable [phone] Reason for Visit * Reason Comments Med Refill Encounter Details Date Type Department Care Team ([facility] st Contact Info) Description 03/08/2024 Refill [facility]INE 230 [place], [place] [phone] Roopa Unger ANP [address] [place], [place] [phone] Social History Tobacco Use Types Packs/Day Years [...] 023 2:03 PM EST) No Robe Parker, PharmStephani documented as of this encounter Visit Diagnoses Not on filedocumented in this encounter Care Teams Technical Support 1 Software Engineer Relationship Specialty Start Date End Date Robe Parker PharmD [address] [place] [address] Pharmacist Internal Medicine 06/15/23 documented as of this encounter
--- OUTSIDE RECORDS SUMMARY | 2024-12-23 16:06 | XMS_ITS | Encounter Summary ---
Author Organization [employer] Address [address] [facility] 7t [place] [address] Care Team Providers Care Hand Sign Writer Name Role Phone Robe Parker PharmD Unavailable [phone] Reason for Visit * Reason Comments Med Refill Encounter Details Date Type Department Care Team ([facility] st Contact Info) Description 01/11/2024 Refill [facility] MEDICINE 230 [place], [place] [phone] Jaqui Chowdary MD [address] [place], [place] [phone] Social History Tobacco Use Types Packs/Day Years [...] on filedocumented in this encounter Care Teams Hand Sign Writer Relationship Specialty Start Date End Date Robe Parker, IrisD [address] [place] [address] Pharmacist Internal Medicine 06/15/23 documented as of this encounter
--- OUTSIDE RECORDS SUMMARY | 2024-12-23 16:06 | XMS_ITS | Encounter Summary ---
Author Organization [employer] Address 75 [facility] 7t [place] [address] Care Team Providers Care Corporate Travel Expert Name Role Phone Robe Parker PharmD Unavailable [phone] Reason for Visit * Reason Comments Med Refill Encounter Details Date Type Department Care Team ([facility] st Contact Info) Description 05/07/2024 Refill [facility] MEDICINE 230 [place], [place] [phone] Sherry Ward MD [address] [place], [place] [phone] Social History Tobacco Use Types Packs/Day Years [...] on filedocumented in this encounter Care Teams Corporate Travel Expert Relationship Specialty Start Date End Date Robe Parker, IrisD [address] [place] [address] Pharmacist Internal Medicine 06/15/23 documented as of this encounter
--- OUTSIDE RECORDS SUMMARY | 2024-12-23 16:06 | XMS_ITS | Encounter Summary ---
Author Organization [employer] Address [address] [facility] 7t [place] [address] Care Team Providers Care Dialysis Clinical Manager Name Role Phone Robe Parker PharmD Unavailable [phone] Reason for Visit * Reason Comments Med Refill Encounter Details Date Type Department Care Team ([facility] st Contact Info) Description 03/11/2024 Refill [facility] MEDICINE 230 [place], [place] [phone] Sherry Ward MD [address] [place], [place] [phone] Neuropathic pain Social History Tobacco Use Types Packs/Day Years [...] as of this encounter Visit Diagnoses Diagnosis Neuropathic pain documented in this encounter Care Teams Dialysis Clinical Manager Relationship Specialty Start Date End Date Robe Parker, IrisD [address] [place] [address] Pharmacist Internal Medicine 06/15/23 documented as of this encounter
--- OUTSIDE RECORDS SUMMARY | 2024-12-23 16:06 | XMS_ITS | Encounter Summary ---
Author Organization [employer] Address [address] [facility] 7t [place] [address] Care Team Providers Care Hand Box Coverer Name Role Phone Robe Parker PharmD Unavailable [phone] Reason for Visit * Reason Comments Med Refill Encounter Details Date Type Department Care Team ([facility] st Contact Info) Description 03/08/[address] [facility] MEDICINE [address] [place], [place] [phone] Sherry Ward MD [address] [place], [place] [phone] Neuropathic pain Social History Tobacco Use Types [...] pain documented in this encounter Care Teams Hand Box Coverer Relationship Specialty Start Date End Date Robe Parker, IrisD [address] [place] [address] Pharmacist Internal Medicine 06/15/23 documented as of this encounter
== END 2024-12-23 14:25 | disposition home or self-care (01) ==
LOC: HO.LAB 14:24
PROVIDERS: PCP Physician Assistant; Visit Provider Internal Medicine Hypertension Specialist
DX: N17.9 Acute kidney failure, unspecified (principal); N18.9 Chronic kidney disease, unspecified
CPT/HCPCS: 36415; 80048

== ENCOUNTER 2024-12-24 11:10 | Outpatient (AMB) | payer OTHER, SELFPAY ==
[2024-12-24 11:11] VITALS: BP 148/88; PULSE 78; O2SAT 96; BMI 29.7
--- NOTE | 2024-12-24 11:11 | HO.NEPHOV_ITS ---
Vital Signs 12/24/24 11:11 Height 5 ft 6 in Weight 184 lb BMI 29.7 BP 148/88 H Blood Pressure Location Lt brachial Position Sitting Pulse 78 Pulse Source Pulse Oximeter Pulse Oximetry (%) 96 Oxygen Delivery Method Room Air Intake Visit Reasons: CKD/ Conf Game Operator Required: No Game Operator Services: Game Operator Offered & Declined (Son will translate ) Accompanied by: son Allergies lisinopril [LISINOPRIL] Allergy (Severe, Verified 12/11/24 11:28) ACUTE KIDNEY INJURY oxycodone [Percocet] Allergy (Intermediate, Verified 12/11/24 11:28) agitation codeine [CODEINE] Allergy (Unknown, Verified 12/11/24 11:28) AGITATION morphine [MORPHINE] Allergy (Unknown, Verified 12/11/24 11:28) AGITATION, confusion From PERCOCET Allergy (Unknown, Uncoded 11/27/24 11:12) AGITATION Medication List - Last Reconciled 12/24/24 by Alex Garcia MD amlodipine 2.5 mg PO DAILY atorvastatin 80 mg PO QAM cholecalciferol (vitamin D3) 25 mcg PO DAILY compression socks, large As directed febuxostat (Uloric) 40 mg PO DAILY fluticasone propionate 50 mcg/actuation 1 spray intranasal DAILY 30 days furosemide (Lasix) 40 mg PO QAM 90 days gabapentin 200 mg (2 x 100 mg) PO BEDTIME 30 days meclizine 25 mg PO TID PRN 10 days metoprolol tartrate 50 mg See Protocol PO BID 90 days prednisone 10 mg PO ONCE PRN simethicone 180 mg PO QID 30 days warfarin 7.5 mg See Protocol PO MO warfarin 5 mg See Protocol PO SUTUWETHFRSA HPI Comments Details: Elderly man with 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 He is here for regular follow-up. Accompanied by son. History of gout he was treated with a course of prednisone. He took Uloric for a month and stopped it [place]cently returned from [place] Ate plenty of Papaya and fruits/Nuts 06/10/24 ON Uloric Gout under control Off LAsix still has foot pain - mostly in heel 10/14/24 In mid August he had preparation for colonoscopy. He had significant diarrhea. Colonoscopy was canceled. REcently hospitalized Had GONZALO with fluid overload REsponded to IV diuretics Wt down to 184 No dyspnea NO nausea or vomiting 2/4/25 Feels better. No new issues Gained weight Accompanied by son PFSH Medical History Allergies Sinus bradycardia Pre-op examination Annual physical exam History of TIA (transient ischemic attack) Gout Personal history of nicotine dependence Chronic kidney disease, stage 3 unspecified Benign prostatic hyperplasia with lower urinary tract symptoms HTN (hypertension) CAD (coronary artery disease) Paroxysmal atrial fibrillation Surgical History Stented coronary artery Hx of colonoscopy Hx of cardiac cath Hx of cystoscopy History of esophagogastroduodenoscopy (EGD) Hx of cataract extraction Family History Mother CAD (coronary artery disease) Diabetes HTN (hypertension) Father CAD (coronary artery disease) Diabetes HTN (hypertension) Social History Household Members: None Housing: Apartment Do you presently have visiting nurse or other home services: No Alcohol intake: former Patient Tobacco Use Status: Former Tobacco user Tobacco use type: Cigarette Years Smoked: 40 +/- e-Cigarette/Vaping Use: Never Used Second Hand Smoke Exposure: No service: No Current occupational status: retired and disabled Cognitive needs: No Hearing needs: No Vision needs: Yes Physical Exam Vital Signs: Last Vital Signs Pulse 78 12/24/24 11:11 BP 148/88 H 12/24/24 11:11 Pulse Ox 96 12/24/24 11:11 Oxygen Delivery Method Room Air 12/24/24 11:11 BMI result Body Mass Index 29.7 Comfortable Neck supple no JVD. Lungs entry equal no rales. Heart S1-S2 heard no gallop or rub. Abdomen soft nontender. Neuro alert awake oriented. No asterixis. Extremities no edema. Results Reviewed Nephrology Results: Hgb 13.2 g/dl (14.0-18.0) L 11/05/24 WBC 7.8 X10*3/uL (4.8-10.8) 11/05/24 Plt Count 196 X10*3/uL (160-400) 11/05/24 Sodium 142 mmol/L (135-145) 12/23/24 Potassium 5.2 mmol/L (3.3-5.1) H 12/23/24 Chloride 108 mmol/L (96-108) 12/23/24 Carbon Dioxide 26 mmol/L (22-29) 12/23/24 BUN 79 mg/dL (9-16) H 12/23/24 Creatinine 4.43 mg/dL (0.5-1.4) H* 12/23/24 Calcium 8.9 mg/dL (8.4-10.2) 12/23/24 Urine Protein 300 (3+) mg/dL (Neg-Trace) H 11/05/24 Assessment & Plan Assessment & Plan (1) CKD (chronic kidney disease) stage 5, GFR less than 15 ml/min: Code(s): N18.5 - Chronic kidney disease, stage 5 Category: Medical Plan: Chronic disease due to interstitial nephritis by biopsy. Initial biopsy was done only [facility] and no tissue was obtained. Repeat biopsy was done and was [facility] which revealed interstitial nephritis with global sclerosis. Sustained another episode of GONZALO. At present no signs or symptoms of uremia No absolute indication for dialysis yet Fluid status acceptable Continue to avoid nephrotoxic agents. Will monitor renal function closely (2) Acute kidney injury superimposed on CKD: Code(s): N17.9 - Acute kidney failure, unspecified; N18.9 - Chronic kidney disease, unspecified Category: Medical Plan: Due to tubular injury. Marginal improvement (3) HTN (hypertension): Code(s): I10 - Essential (primary) hypertension Category: Medical Qualifiers: Hypertension type: primary hypertension Qualified Code(s): I10 - Essential (primary) hypertension Plan: Blood pressure is well controlled Low-salt diet (4) Gout: Code(s): M10.9 - Gout, unspecified Category: Medical Plan: Seems to be under control. Keep Uloric to lower uric acid We discussed low purine diet (5) Hyperkalemia: Code(s): E87.5 - Hyperkalemia Category: Medical Plan: K was 5.2 Reviewed diet Discussed Low K diet Plan He will be a good candidate for CCPD Will refer for dialysis education Orders: Orders Basic Metabolic Panel 6 Weeks N18.5 - Chronic kidney disease, stage 5 Complete Blood Count no Diff Today N18.5 - Chronic kidney disease, stage 5 Coding Level of Care Code Est Pt Level 4 (78897) Diagnoses CKD (chronic kidney disease) stage 5, GFR less than 15 ml/min N18.5 Acute kidney injury superimposed on CKD N17.9; N18.9 Primary hypertension I10 Hypertension type: primary hypertension Gout M10.9 Hyperkalemia E87.5
--- OUTSIDE RECORDS SUMMARY | 2024-12-24 12:04 | XMS_ITS | Encounter Summary ---
Author Organization [facility] Address [address] [place] [address] Phone Care Team Providers Care Product Managent Intern Name Role Phone Joycelyn Brothers DO Primary Care Provider Unava ilable Encounter Details Date Type Department Care Team (Late st Contact Info) Description 11/08/2022 Telephone [facility] [address] [place] [address] Alex Garcia MD Social History [...] She also wants to add that his heavy duty custodian started him on digoxin 0.1 mg daily. Please advise Thank you CB# [phone] documented in this encounter Plan of Treatment Not on file documented as of this encounter Visit Diagnoses Not on filedocumented in this encounter Care Teams Product Managent Intern Relationship Specialty Start Date End Date Joycelyn Brothers DO PCP - General 11/30/20 documented as of this encounter
--- OUTSIDE RECORDS SUMMARY | 2024-12-24 12:04 | XMS_ITS | Encounter Summary ---
Author Organization [employer] Address [address] [place] [address] 7t [place] [address] Care Team Providers Care Airline Attendant Name Role Phone Sherry Ward MD Primary Care Provider [phone] Parker Robe PharmD Unavailable [phone] Reason for Visit * Reason Onset Date Comments triage 11/25/2022 Encounter Details Date Type Department Care Team ([facility] st Contact Info) Description 11/25/2022 Telephone [facility] MEDICINE 230 [place], [place] [phone] Sherry Ward MD [address] [place], [place] [phone] triage Social History Tobacco Use Types Packs/Day [...] 11/25/2022 4:06 PM EST Triage call with [employer] [facility] Assistant Professor ID [id number] Pt reports son came over this morning to test with home test. Pt isn't sure if it is positive and is requesting medication. Pt reports has had Covid before . Pt is unable to come to [facility] today for further testing. Pt symptoms [...] on filedocumented in this encounter Care Teams Airline Attendant Relationship Specialty Start Date End Date Sherry Ward MD [address] [place] [address] PCP - General Family Medicine 11/20/18 12/17/23 Robe Parker PharmD [address] [place] [address] Pharmacist Internal Medicine 06/15/23 documented as of this encounter
--- OUTSIDE RECORDS SUMMARY | 2024-12-24 12:04 | XMS_ITS | Encounter Summary ---
Author Organization [employer] Address [address] [place] [address] 7t [place] [address] Care Team Providers Care Bias Machine Operator Name Role Phone Sherry Ward MD Primary Care Provider [phone] Robe Parker PharmD Unavailable [phone] Reason for Referral * Imaging (Routine) - Closed Specialty Diagnoses / Procedures Referred By Contac t Referred To Contact Diagnoses Vertigo Ischemic heart disease Chronic atrial fibrillation (CMS/HCC) Essential hypertension Procedures Mr Brain w/ and w/o Contrast Sherry Ward MD [address] [place] [address] Phone: tel: fax: [facility] [place] and CT Scan [address] [place], [place] Phone: tel: fax: Referral ID Status Reason Start Date Expiration Date Visits Re quested Visits Authorized [id number] Closed 11/17/2022 11/17/2023 1 1 Encounter Details Date Type Department Care Team (Late st Contact Info) Description 11/08/2022 Orders Only [facility] MEDICINE 230 [place], [place] [phone] Sherry Ward MD [address] [place], [place] [phone] Vertigo (Primary Dx); Ischemic heart disease; Chronic [...] hypertension documented in this encounter Care Teams Bias Machine Operator Relationship Specialty Start Date End Date Sherry Ward MD [address] [place] [address] PCP - General Family Medicine 11/20/18 12/17/23 Robe Parker, IrisD [address] [place] [address] Pharmacist Internal Medicine 06/15/23 documented as of this encounter
--- OUTSIDE RECORDS SUMMARY | 2024-12-24 12:04 | XMS_ITS | Encounter Summary ---
Author Organization [facility] Address [address] [facility] [address] [place] [address] Phone Care Team Providers Care Computer Science Teacher Name Role Phone Joycelyn Brothers DO Primary Care Provider Ema ilva Encounter Details Date Type Department Care Team (Late st Contact Info) Description 05/29/2021 Orders Only [facility] [address] [place] [id number] Alex Garcia MD Chronic kidney disease stage [...] (HCC) documented in this encounter Care Teams Computer Science Teacher Relationship Specialty Start Date End Date Joycelyn Brothers DO PCP - General 11/30/20 documented as of this encounter
--- OUTSIDE RECORDS SUMMARY | 2024-12-24 12:04 | XMS_ITS | Encounter Summary ---
Author Organization [employer] Address [address] [facility] 7t [place] [address] Care Team Providers Care Marine Habitat Resource Specialist Name Role Phone Sherry Ward MD Primary Care Provider [phone] Keith Robe PharmD Unavailable [phone] Encounter Details Date Type Department Care Team (Late st Contact Info) Description 11/02/2023 Orders Only [facility] MEDICINE [address] [place], [place] [phone] Sherry Ward MD [address] [place], [place] [phone] Left foot pain (Primary Dx) Social History [...] limb documented in this encounter Care Teams Marine Habitat Resource Specialist Relationship Specialty Start Date End Date Sherry Ward MD [address] [place] [address] PCP - General Family Medicine 11/20/18 12/17/23 Robe Parker, IrisD [address] [place] [address] Pharmacist Internal Medicine 06/15/23 documented as of this encounter
--- OUTSIDE RECORDS SUMMARY | 2024-12-24 12:04 | XMS_ITS | Encounter Summary ---
Author Organization [employer] Address [address] [facility] 7t [place] [address] Care Team Providers Care Back Panel Padder Name Role Phone Sherry Ward MD Primary Care Provider [phone] Keith Robe PharmD Unavailable [phone] Encounter Details Date Type Department Care Team ([facility] st Contact Info) Description 11/02/2023 Orders Only [facility] MEDICINE 230 [place], [place] [phone] Sherry Ward MD 230 [place], [place] [phone] Social History Tobacco Use Types Packs/Day Years [...] on filedocumented in this encounter Care Teams Back Panel Padder Relationship Specialty Start Date End Date Sherry Ward MD 230 [place] [address] PCP - General Family Medicine 11/20/18 12/17/23 Robe Parker, PharmD 230 [place] [address] Pharmacist Internal Medicine 06/15/23 documented as of this encounter
--- OUTSIDE RECORDS SUMMARY | 2024-12-24 12:04 | XMS_ITS | Encounter Summary ---
Author Organization [employer] Address 75 [facility] 7t [place] [address] Care Team Providers Care Water And Sewer Systems Superintendent Name Role Phone Sherry Ward MD Primary Care Provider [phone] Parker Robe PharmD Unavailable [phone] Reason for Visit * Reason Onset Date Comments Lab Request 01/16/2023 Patient walked i n requesting for lab examination to see potassium levels. Patient has been on kayexalate for a month already and would like to see how his levels are doing. Encounter Details Date Type Department Care Team (Late st Contact Info) Description 01/16/2023 Telephone [facility] MEDICINE 230 [place] [address] Sherry Ward MD 230 [place] [address] Lab Request (Patient walked in [...] he wants to get them done at [facility]. Informed we would have to change the [...] on filedocumented in this encounter Care Teams Water And Sewer Systems Superintendent Relationship Specialty Start Date End Date Sherry Ward MD [address] [place] [address] PCP - General Family Medicine 11/20/18 12/17/23 Robe Parker, PharmD 230 [place] [address] Pharmacist Internal Medicine 06/15/23 documented as of this encounter
--- OUTSIDE RECORDS SUMMARY | 2024-12-24 12:04 | XMS_ITS | Encounter Summary ---
Author Organization [employer] Address [address] [place] [address] 7t [place] [address] Care Team Providers Care Stoneworking Belt Sander Name Role Phone Sherry Ward MD Primary Care Provider [phone] Kieth Robe PharmD Unavailable [phone] Encounter Details Date Type Department Care Team ([facility] st Contact Info) Description 01/23/2023 Orders Only [facility] MED[facility]INE 230 [place], [place] [phone] Nivia Serrato MD 230 [place] [address] Hyperkalemia (Primary Dx) Social History Tobacco Use [...] Hyperpotassemia documented in this encounter Care Teams Stoneworking Belt Sander Relationship Specialty Start Date End Date Sherry Ward MD 230 [place], [place] [phone] PCP - General Family Medicine 11/20/18 12/17/23 Robe Parker, PharmD [address] [place] [address] Pharmacist Internal Medicine 06/15/23 documented as of this encounter
--- OUTSIDE RECORDS SUMMARY | 2024-12-24 12:04 | XMS_ITS | Clinical Summary ---
Author Organization [facility] Address [address] [place] [address] Phone Care Team Providers Care Delivery Supervisor Name Role Phone Joycelyn Brothers DO Primary [...] adenomatous polyp of colon 01/26/2024 Tinnitus 03/21/2023 half-way current use of anticoagulant Overview (01/26/2024): Last Assessment & Plan: - indication: Atrial fibrilation - medication: warfarin - [place] [facility] - most recent INR 1.6 [...] 04/02/2021 Overview (01/26/2024): Last Assessment & Plan: -Ocular Pathologist: Dr. Roland, last seen in 12/27/21 -Baseline SCr 2.4-2.8; eGFR 22-26, CrCl 28.5 -Most recent lab: 08/05/22 K 5.2, BUN 46, SCr 2.48; eGFR 26 -Avoid nephrotoxic drugs/substances and behaviors, including NSAIDs use. -Renal dose medications. Tinea pedis 04/30/2018 Ischemic heart disease 04/30/2018 Overview (01/26/2024): Last Assessment & Plan: -Engraver Letter, Dr. Cain, seen on 11/10/22 -TIA in January 2018. Dx Afib. Started on Coumadin. -03/14/18 BRITTANY to distal RCA. Completed uninterrupted Plavix and Coumadin therapy for 1 year. Plan was to swithc Plavix to ASA. Pt is not on ASA or Plavix at this time because his CAD is stable per blacksmith supervisor. - Last echo in 12/28/21: Normal LV function, EF 55-60%. slight decrease from last echo. mild GERD reguigitation -Continue current medications History of placement of stent for coronary arter y disease 04/30/2018 Chronic atrial fibrillation 02/09/2018 Overview (01/26/2024): Last Assessment & Plan: A-fib today, rate controlled. pt is usually asymptomatic whether he is bradycardia and tachycardia -his blacksmith supervisor recommends rate control rather than rhythm control - Continue rate control with metoprolol tartrate 100 mg bid - Continue digoxin 125 mcg daily - Continue warfarin, which is monitored by [facility] [place] [facility] -- Treatment Hx: --Previously on [...] Completed 03/21/2016, 06/18/2015, 04/14/2010 Insurance DUAL COMPLETE ([id number]) DUAL COMPLETE ([id number]) Care Teams Delivery Supervisor Relationship Specialty Start Date End Date Joycelyn Brothers DO PCP - General 11/30/20
--- OUTSIDE RECORDS SUMMARY | 2024-12-24 12:04 | XMS_ITS | Encounter Summary ---
Author Organization [employer] Address [address] [place] [address] 7t [place] [address] Care Team Providers Care Driver License Examiner Name Role Phone Sherry Ward MD Primary Care Provider [phone] Robe Parker PharmD Unavailable [phone] Reason for Visit * Reason Onset Date Comments Anticoagulation 12/21/2022 Encounter Details Date Type Department Care Team ([facility] st Contact Info) Description 12/21/2022 Telephone [facility] MEDICINE 230 [place], [place] [phone] Sherry Ward MD 230 [place], [place] [phone] Anticoagulation Social History Tobacco Use Types Packs/Day [...] call received at this time. Katy at [facility] reports today that Pt. INR is 1.4 Warfarin dose today 7.5mg 5mg abd Monday 2.5 mg Monday and 5mg Monday Recheck Monday. Please call Katy CURRAN if needed. documented in this encounter Plan of Treatment Not on file documented as of this encounter Visit Diagnoses Not on filedocumented in this encounter Care Teams Driver License Examiner Relationship Specialty Start Date End Date Sherry Ward MD [address] [place] [address] PCP - General Family Medicine 11/20/18 12/17/23 Robe Parker, PharmD [address] [place] [address] Pharmacist Internal Medicine 06/15/23 documented as of this encounter
--- OUTSIDE RECORDS SUMMARY | 2024-12-24 12:04 | XMS_ITS | Encounter Summary ---
Author Organization [employer] Address [address] [place] [address] 7t [place] [address] Care Team Providers Care Shredder Tender Peat Name Role Phone Sherry Ward MD Primary Care Provider [phone] Robe Parker PharmD Unavailable [phone] Encounter Details Date Type Department Care Team (Late st Contact Info) Description 11/04/2022 Orders Only [facility] MEDICINE 230 [place] [address] Sharon Ko, RN Social History Tobacco Use [...] on filedocumented in this encounter Care Teams Shredder Tender Peat Relationship Specialty Start Date End Date Sherry Ward MD 230 [place] [address] PCP - General Family Medicine 11/20/18 12/17/23 Robe Parker, PharmD [address] [place] [address], [place] [address] Pharmacist Internal Medicine 06/15/23 documented as of this encounter
--- OUTSIDE RECORDS SUMMARY | 2024-12-24 12:05 | XMS_ITS | Encounter Summary ---
Author Organization [employer] Address [address] [facility] 7t [place] [address] Care Team Providers Care Rotary Dump Operator Name Role Phone Robe Parker PharmD Unavailable [phone] Reason for Visit * Reason Comments Med Refill Encounter Details Date Type Department Care Team ([facility] st Contact Info) Description 01/11/2024 Refill [facility] MEDICINE 230 [place], [place] [phone] Jaqui Chowdary MD 230 [place], [place] [phone] Social History Tobacco Use Types Packs/Day Years [...] on filedocumented in this encounter Care Teams Rotary Dump Operator Relationship Specialty Start Date End Date Robe Parker, IrisD [address] [place] [address] Pharmacist Internal Medicine 06/15/23 documented as of this encounter
--- OUTSIDE RECORDS SUMMARY | 2024-12-24 12:05 | XMS_ITS | Encounter Summary ---
Author Organization [employer] Address [address] [facility] 7t [place] [address] Care Team Providers Care Stylist Assistant Name Role Phone Robe Parker PharmD Unavailable [phone] Reason for Visit * Reason Comments Med Refill Encounter Details Date Type Department Care Team ([facility] st Contact Info) Description 09/26/2024 Refill [facility] MEDICINE 230 [place], [place] [phone] Sherry Ward MD 230 [place], [place] [phone] Dyslipidemia Social History Tobacco Use Types Packs/Day [...] hyperlipidemia documented in this encounter Care Teams Stylist Assistant Relationship Specialty Start Date End Date Robe Parker PharmD [address] [place] [address] Pharmacist Internal Medicine 06/15/23 documented as of this encounter
--- OUTSIDE RECORDS SUMMARY | 2024-12-24 12:05 | XMS_ITS | Encounter Summary ---
Author Organization [employer] Address [address] [facility] 7t [place] [address] Care Team Providers Care Review Trainer Name Role Phone Robe Parker PharmD Unavailable [phone] Reason for Visit * Reason Comments Med Refill Encounter Details Date Type Department Care Team ([facility] st Contact Info) Description 03/08/2024 Refill [facility] MEDICINE 230 [place], [place] [phone] Sherry Ward MD 230 [place], [place] [phone] Neuropathic pain Social History Tobacco Use Types [...] pain documented in this encounter Care Teams Review Trainer Relationship Specialty Start Date End Date Robe Parker, IrisD [address] [place] [address] Pharmacist Internal Medicine 06/15/23 documented as of this encounter
--- OUTSIDE RECORDS SUMMARY | 2024-12-24 12:05 | XMS_ITS | Encounter Summary ---
Author Organization [employer] Address [address] [facility] 7t [place] [address] Care Team Providers Care Belt Loop Cutter Name Role Phone Robe Parker PharmD Unavailable [phone] Reason for Visit * Reason Comments Med Refill Encounter Details Date Type Department Care Team ([facility] st Contact Info) Description 05/07/[address] [facility] MEDICINE [address] [place], [place] [phone] Sherry Ward MD 230 [place], [place] [phone] Social History Tobacco Use Types Packs/Day Years [...] on filedocumented in this encounter Care Teams Belt Loop Cutter Relationship Specialty Start Date End Date Robe Parker, IrisD [address] [place] [address] Pharmacist Internal Medicine 06/15/23 documented as of this encounter
--- OUTSIDE RECORDS SUMMARY | 2024-12-24 12:05 | XMS_ITS | Encounter Summary ---
Author Organization [employer] Address 75 [facility] 7t [place] [address] Care Team Providers Care Pulp Operator Name Role Phone Robe Parker PharmD Unavailable [phone] Reason for Visit * Reason Comments Med Refill Encounter Details Date Type Department Care Team ([facility] st Contact Info) Description 03/08/2024 Refill [facility] MEDICINE 230 [place], [place] [phone] Roopa Unger ANP 230 [place], [place] [phone] Social History Tobacco Use Types Packs/Day Years [...] on filedocumented in this encounter Care Teams Pulp Operator Relationship Specialty Start Date End Date Robe Parker PharmD [address] [place] [address] Pharmacist Internal Medicine 06/15/23 documented as of this encounter
--- OUTSIDE RECORDS SUMMARY | 2024-12-24 12:05 | XMS_ITS | Encounter Summary ---
Author Organization [employer] Address [address] [facility] 7t [place] [address] Care Team Providers Care Quality Control Inspector Heading Name Role Phone Robe Parker PharmD Unavailable Reason for Visit * Reason Comments Med Refill Encounter Details Date Type Department Care Team ([facility] st Contact Info) Description 08/05/2024 Refill [facility] MEDICINE 230 [place], [place] [phone] Sherry Ward MD 230 [place], [place] [phone] Social History Tobacco Use Types Packs/Day Years [...] on filedocumented in this encounter Care Teams Quality Control Inspector Heading Relationship Specialty Start Date End Date Robe Parker, IrisD [address] [place] [address] Pharmacist Internal Medicine 06/15/23 documented as of this encounter
--- OUTSIDE RECORDS SUMMARY | 2024-12-24 12:05 | XMS_ITS | Encounter Summary ---
Author Organization [employer] Address [address] [facility] 7t [place] [address] Care Team Providers Care Edge Cutting Machine Operator Name Role Phone Robe Parker PharmD Unavailable [phone] Reason for Visit * Reason Comments Med Refill Encounter Details Date Type Department Care Team ([facility] st Contact Info) Description 03/11/2024 Refill [facility] MEDICINE 230 [place], [place] [phone] Sherry Ward MD 230 [place], [place] [phone] Neuropathic pain Social History Tobacco Use Types [...] pain documented in this encounter Care Teams Edge Cutting Machine Operator Relationship Specialty Start Date End Date Robe Parker, IrisD [address] [place] [address] Pharmacist Internal Medicine 06/15/23 documented as of this encounter
--- OUTSIDE RECORDS SUMMARY | 2024-12-24 12:05 | XMS_ITS | Clinical Summary ---
Author Organization [employer] Address [address] [place] [address] 7t [place] [address] Care Team Providers Care Coke Crusher Operator Name Role Phone Robe Parker PharmD Unavailable Allergies Active Allergy Reactions Criticality Noted Date [...] 1 3 Active Lancets (OneTouch Delica Plus [id number]) [facility] Check blood sugar once daily 100 each 11 3 Active Blood Glucose Monitoring Suppl (ONE TOUCH ULTRA 2) w/Device kitIndications:T ype 2 diabetes mellitus with stage 4 chronic kidney disease, without long-term current use of insulin ([facility]) 1 kit Once daily. 1 kit [...] taking febuxostat 40 mg daily prescribed by automotive sales specialist - continue febuxostat 40 mg daily - [...] fibrilation - medication: warfarin - monitored by [facility] - most recent INR 2.2 on 10/20/23 - continue current treatment plan Assessment & Plan (03/21/2023 11:52 AM EDT): - indication: Atrial fibrilation - medication: warfarin - monitored by [facility] - most recent INR [...] Assessment & Plan (11/05/2023 4:30 PM EST): -Assistant Track Coach: Dr. Roland, last seen in Sep 2023 -Baseline SCr 2.0-2.4; eGFR 27-32, K 4.9-5.4 -Avoid nephrotoxic drugs/substances and behaviors, including NSAIDs use. -Renal dose medications. Assessment & Plan (03/13/2023 1:36 PM EDT): -Assistant Track Coach: Dr. Roland, last seen in 12/27/21 -Baseline SCr 2.4-2.8; eGFR 22-26, CrCl 28.5 -Most recent lab: 08/05/22 K 5.2, BUN 46, SCr 2.48; eGFR 26 -Avoid nephrotoxic drugs/substances and behaviors, including NSAIDs use. -Renal dose medications. Assessment & Plan (12/19/2022 1:28 PM EST): -Assistant Track Coach: Dr. Roland, last seen in 12/27/21 -Baseline SCr 2.4-2.8; eGFR 22-26, CrCl 28.5 -Most recent lab: 08/05/22 K 5.2, BUN 46, SCr 2.48; eGFR 26 -Avoid nephrotoxic drugs/substances and behaviors, including NSAIDs use. -Renal dose medications. Assessment & Plan (11/07/2022 4:55 AM EST): -Assistant Track Coach: Dr. Roland, last seen in 12/27/21 -Baseline SCr 2.4-2.8; eGFR 22-26, CrCl 28.5 -Most recent lab: 08/05/22 K 5.2, BUN 46, SCr 2.48; eGFR 26 -Avoid nephrotoxic drugs/substances and behaviors, including NSAIDs use. -Renal dose medications. Chronic interstitial nephritis 04/02/2021 Proteinuria 04/02/2021 Ischemic heart disease 04/30/2018 Assessment & Plan (11/05/2023 4:06 PM EST): -Executive Administrator, Dr. Cain, seen in April 2023 -TIA [...] Assessment & Plan (03/13/2023 1:29 PM EDT): -Executive Administrator, Dr. Cain, seen on 11/10/22 -TIA in January 2018. Dx Afib. Started on Coumadin. -03/14/18 BRITTANY to distal RCA. Completed uninterrupted Plavix and Coumadin therapy for 1 year. Plan was to swithc Plavix to ASA. Pt is not on ASA or Plavix at this time because his CAD is stable per subgrade roller operator. - Last echo in 12/28/21: Normal LV function, EF 55-60%. slight decrease from last echo. mild GERD reguigitation -Continue current medications Assessment & Plan (12/25/2022 7:27 AM EST): -Executive Administrator, Dr. Cain, seen on 11/10/22 -TIA in January 2018. Dx Afib. Started on Coumadin. -03/14/18 BRITTANY to distal RCA. Completed uninterrupted Plavix and Coumadin therapy for 1 year. Plan was to swithc Plavix to ASA. Pt is not on ASA or Plavix at this time because his CAD is stable per subgrade roller operator. - Last echo in 12/28/21: Normal LV function, EF 55-60%. slight decrease from last echo. mild GERD reguigitation -Continue current medications Assessment & Plan (11/07/2022 5:02 AM EST): -Executive Administrator, Dr. Cain, seen on 05/19/22 -TIA in January 2018. Dx Afib. Started on Coumadin. -03/14/18 BRITTANY to distal RCA. Completed uninterrupted Plavix and Coumadin therapy for 1 year. Plan was to swithc Plavix to ASA. Pt is not on ASA or Plavix at this time because his CAD is stable per subgrade roller operator. - Last echo in 12/28/21: Normal [...] whether he is bradycardia and tachycardia -his subgrade roller operator recommends rate control rather than rhythm control - Continue rate control with metoprolol tartrate 100 mg bid - Continue digoxin 125 mcg daily - Continue warfarin, which is monitored by [facility]tico[facility] -- Treatment Hx: --Previously [...] whether he is bradycardia and tachycardia -his subgrade roller operator recommends rate control rather than rhythm control - Continue rate control with metoprolol tartrate 100 mg bid - Continue digoxin 125 mcg daily - Continue warfarin, which is monitored by [facility]tico[facility] -- Treatment Hx: --Previously [...] wheter he is bradycardiac and tachycardiac -his subgrade roller operator recommends rate control rather than rhythm control - Continue rate control with metoprolol tartrate 100 mg bid - Continue digoxin 125 mcg daily - Continue warfarin, which is monitored by [facility] [place]tico[facility] -- Treatment Hx: --Previously [...] microalbuminuria due to type 2 diabetes mellitus ([facility]) 12/25/2014 Type 2 diabetes mellitus 12/25/2014 [...] Logan -Pt requests to be referred to [facility] where his son goes Assessment & [...] wheter he is bradycardiac and tachycardiac -his subgrade roller operator recommends rate control rather than rhythm [...] decreased -Continue Coumadin, which is monitored by [facility] anticoagulation [facility]. -Holter monitor on 04/13/22 showed average HR 61 bpm, sinus. A-fib 36%. -Holter monitor on 09/08/22 showed average HR 101 bpm, baseline A-fib, HR > 100 for 67% period -Pt states he has been taking digoxin. Will confirm it with subgrade roller operator. Mild intermittent asthma 09/01/201503/2023 Encounters Date Type Department Care Team Description 09/26/2024 Refill [facility] MEDICINE 230 [place] [address] Sherry Ward MD Dyslipidemia from Last 3 [...] disease, without long-term current use of insulin ([facility]) COLONOSCOPY Routine 04/22/2019 from Last 3 Months or Most Recently Relevant to Health Maintenance Results * (ABNORMAL) Lipid Panel with Reflex to Direct LDL (10/30/2023 2:57 PM EST) Triglycerides 433(H) <150 mg/dL [facility] Comment:Desirable Triglyceri de: less than 150 mg/dLBorderline High Triglyceride 150-199 mg/dLHigh Triglyceride: 200-499 mg/dLVery High Triglyceride: greater than or equal to 5OO mg/dL Cholesterol 266(H) <200 mg/dL [facility] Comment:Desirable Cholestero l: less than 200 mg/dLBorderline High Cholesterol: 200-239 mg/dLHigh Cholesterol: greater than 239 mg/dL LDL Cholesterol Calculated TNP <100 mg/dL [facility] Comment:Unable to calculate the LDL. The formula of Friedwald,Olsen, and Stefanie is only valid if the triglycerides areless than 400 mg/dl. HDL Cholesterol 28(L) >40 mg/dL [facility] Comment:Desirable HDL: great er than 40 mg/dL Note: This HDL assay may give artificially low results in patients with liver disease. Blood 10/30/2023 2:57 PM EST 10/30/2023 3:58 PM EST us Sherry Ward MD LAB BLOOD ORDERABLES Final Resul t [facility] [address] [place] [address] [phone] * (ABNORMAL) POCT glycosylated hemoglobin (Hgb [...] Relevant to Health Maintenance Insurance [facility] DUAL COMPLETE [facility] STANDARD Care Teams Coke Crusher Operator Relationship Specialty Start Date End Date Robe Parker, PharmD [address] [place] [address] Pharmacist Internal Medicine 06/15/23
== END 2024-12-24 11:33 | disposition home or self-care (01) ==
PROVIDERS: PCP Physician Assistant; Visit Provider Internal Medicine Hypertension Specialist
DX: I12.9 Hypertensive chronic kidney disease with stage 1 through stage 4 chronic kidney disease, or unspecified chronic kidney disease (principal); N18.5 Chronic kidney disease, stage 5; N17.9 Acute kidney failure, unspecified; N18.9 Chronic kidney disease, unspecified; M10.9 Gout, unspecified; E87.5 Hyperkalemia
CPT/HCPCS: 99214

== ENCOUNTER → 2024-12-24 11:10 | Outpatient (BNVA) | payer OTHER, SELFPAY | PROVIDERS: PCP Physician Assistant; Visit Provider Internal Medicine Hypertension Specialist | DX: I12.9 Hypertensive chronic kidney disease with stage 1 through stage 4 chronic kidney disease, or unspecified chronic kidney disease (principal); N18.5 Chronic kidney disease, stage 5; N17.9 Acute kidney failure, unspecified; M10.9 Gout, unspecified; E87.5 Hyperkalemia | CPT/HCPCS: 99212 ==

== ENCOUNTER 2024-12-26 11:37 | Outpatient (AMB) | payer OTHER, SELFPAY ==
[2024-12-26 11:38] VITALS: BP 146/90; BMI 29.7
--- NOTE | 2024-12-26 11:38 | MHC.PC.OV ---
Vital Signs 12/26/24 11:38 Height 5 ft 6 in Weight 184 lb BMI 29.7 BP 146/90 H Blood Pressure Location Lt brachial Position Sitting Intake Visit Reasons: Follow up CKD, hypertension hyperlipidemia Public Affairs Specialist Required: No Public Affairs Specialist Name: Haja will interpret Information Interpreted: non-clinical & clinical Customer Business Manager: Not Required per policy Accompanied by: Son Allergies lisinopril [LISINOPRIL] Allergy (Severe, Verified 12/26/24 11:42) ACUTE KIDNEY INJURY oxycodone [Percocet] Allergy (Intermediate, Verified 12/26/24 11:42) agitation codeine [CODEINE] Allergy (Unknown, Verified 12/26/24 11:42) AGITATION morphine [MORPHINE] Allergy (Unknown, Verified 12/26/24 11:42) AGITATION, confusion From PERCOCET Allergy (Unknown, Uncoded 12/26/24 11:42) AGITATION Medication List - Last Reconciled 12/26/24 by Preet An PA-C amlodipine 2.5 mg PO DAILY atorvastatin 80 mg PO QAM cholecalciferol (vitamin D3) 25 mcg PO DAILY compression socks, large As directed febuxostat (Uloric) 40 mg PO DAILY fluticasone propionate 50 mcg/actuation 1 spray intranasal DAILY 30 days furosemide (Lasix) 40 mg PO QAM 90 days gabapentin 200 mg (2 x 100 mg) PO BEDTIME 30 days meclizine 25 mg PO TID PRN 30 days metoprolol tartrate 50 mg See Protocol PO BID 90 days prednisone 10 mg PO ONCE PRN simethicone 180 mg PO QID 30 days warfarin 7.5 mg See Protocol PO MO warfarin 5 mg See Protocol PO SUTUWETHFRSA Tobacco use date assessed: 11/21/23 Dental Screening Dental Screen Date: 11/21/23 HPI Follow up CKD, hypertension hyperlipidemia HPI Details Patient is a 74 year male here today for follow-up visit Patient has a past medical history significant for AFib (followed by Cardiology), gout, thoracic aortic aneurysm (followed by vascular) hypertension, CKD stage 5(followed by Nephrology), coronary artery disease. .. AFib: Continues on warfarin for anticoagulation. Also followed by [facility]. .. 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 He continues with CKD stage 5. He does not have any uremic symptoms. He is followed by Nephrology closely. Though has been considerations to start dialysis treatment [facility] Medical History Allergies Sinus bradycardia Pre-op examination Annual physical exam History of TIA (transient ischemic attack) Gout Personal history of nicotine dependence Chronic kidney disease, stage 3 unspecified Benign prostatic hyperplasia with lower urinary tract symptoms HTN (hypertension) CAD (coronary artery disease) Paroxysmal atrial fibrillation Surgical History Stented coronary artery Hx of colonoscopy Hx of cardiac cath Hx of cystoscopy History of esophagogastroduodenoscopy (EGD) Hx of cataract extraction Family History Mother CAD (coronary artery disease) Diabetes HTN (hypertension) Father CAD (coronary artery disease) Diabetes HTN (hypertension) Social History Household Members: None Housing: Apartment Do you presently have visiting nurse or other home services: No Alcohol intake: former Patient Tobacco Use Status: Former Tobacco user Tobacco use type: Cigarette Years Smoked: 40 +/- e-Cigarette/Vaping Use: Never Used Second Hand Smoke Exposure: No service: No Current occupational status: retired and disabled Cognitive needs: No Hearing needs: No Vision needs: Yes Questionnaire PHQ-9 Over the last 2 weeks, how often have you been bothered by any of the following problems? 1. Little interest or pleasure in doing things: not at all 2. Feeling down, depressed, or hopeless: not at all 3. Trouble falling or staying asleep, or sleeping too much: not at all 4. Feeling tired or having little energy: not at all 5. Poor appetite or overeating: not at all 6. Feeling bad about yourself - or that you are a failure or have let yourself or your family down: not at all 7. Trouble concentrating on things, such as reading the newspaper or watching television: not at all 8. Moving or speaking so slowly that other people could have noticed. Or the opposite - being so fidgety or restless that you have been moving around a lot more than usual: not at all 9. Thoughts that you would be better off or of hurting yourself in some way: not at all Total score: 0 Depression Screening Interpretation: Negative Depression Screening Done: Yes 09267 - PHQ-9 Billing: Yes Source: Developed by Drs. Jasson Ramos, Alanna Allen, Wai Tanner and colleagues, with an educational marcell from [employer]. Thrive Questionnaire Date Thrive assessed: 12/26/24 I am a: Patient What is your living situation today?: I have a steady place to live Within the past 12 months, did the food you bought not last and you didn't have the money to get more?: Never true Within the past 12 months, did you worry whether your food would run out before you got money to buy more?: Never true Do you have trouble paying for medicines?: No Do you have trouble getting transportation to medical appointments?: No Do you have trouble paying your heating and electricity bill?: No Do you have trouble taking care of your child, family member or friend?: No Do you have trouble with day-to-day activities such as bathing, preparing meals, shopping, managing finances, etc.?: No Are you currently unemployed and looking for a job?: No Are you interested in more education?: No Please select the resources that you would like help with: None Currently or been in a relationship where the following occur: No concerns reported THRIVE Score: 0 AUDIT C Alcohol Use Questionnaire (AUDIT-C) 1. How often do you have a drink containing alcohol?: Never 3. How often do you have six or more drinks on one occasion?: Never Total Score: 0 FAUSTINA-7 AMB Questionnaire FAUSTINA-7 Date FAUSTINA - 7 assessed: 12/26/24 Feeling nervous, anxious, or on edge: 0 = Not at all Not being able to stop or control worryin = Not at all Worrying too much about different things: 0 = Not at all Trouble relaxin = Not at all Being so restless that it is hard to sit still: 0 = Not at all Becoming easily annoyed or irritable: 0 = Not at all Feeling afraid as if something awful might happen: 0 = Not at all Total FAUSTINA-7 score (0-4 normal; 5-9 mild; 10-14 moderate; 15-21 severe): 0 Source: Developed by Drs. Jasson Ramos, Alanna Allen, Wai Tanner and colleagues, with an educational marcell from [employer]. FAUSTINA-7 Assessment Billing FAUSTINA-7 Assessment Tool: FAUSTINA-7 Assessment 05655 Physical exam (Primary Care) Vital Signs: Last Vital Signs BP 146/90 H 12/26/24 11:38 BMI result Body Mass Index 29.7 Tobacco/Smoking Status: Tobacco use Status Tobacco use date assessed 11/21/23 12/26/24 11:39 Patient Tobacco Use Status Former Tobacco user 12/26/24 11:39 Tobacco use type Cigarette 12/26/24 11:39 e-Cigarette/Vaping Use Never Used 12/26/24 11:39 PHQ-9: PHQ-9 Score PHQ-9: Total score 0 12/26/24 11:47 Depression Screening Interpretation: Negative Thrive Assessment: Date of Thrive Assessment Date Thrive assessed 12/26/24 12/26/24 11:40 Currently or been in a relationship where the following occur: No concerns reported Telehealth Telehealth Telehealth Platform: Telephone Location of provider rendering services: practice address Location of patient: address on file Patient Identification confirmed using: Name, : Yes Telehealth method: voice only Patient verbally consented to treatment: Yes Patient verbally consented to billing insurance company: Yes Patient informed of any privacy concerns related to visit: Yes Minutes spent on Phone/Video with Pt.: 11 Coding Level of Care Code Tele Est Pt Level 4 (72103) Diagnoses CKD (chronic kidney disease) stage 5, GFR less than 15 ml/min N18.5 High cholesterol E78.00 Permanent atrial fibrillation I48.21 Atrial fibrillation type: permanent Coronary artery disease involving [place] coronary artery of [place] heart without angina pectoris I25.10 Associated angina: without angina Coronary Disease-Associated Artery/Lesion type: [place] artery [place] vs. transplanted heart: [place] heart Additional Codes FAUSTINA-7 Assessment Billing - FAUSTINA-7 Assessment Tool: FAUSTINA-7 Assessment 92356 ([id number]) PHQ-9 - 15966 - PHQ-9 Billing: Yes ([id number]) Assessment & Plan Assessment & Plan (1) CKD (chronic kidney disease) stage 5, GFR less than 15 ml/min: Code(s): N18.5 - Chronic kidney disease, stage 5 Category: Medical Plan: As per HPI patient found to nephritis upon biopsy. Continues to have CKD stage 5. He in his family has been refer to dialysis education. Has not had any uremic symptoms. (2) High cholesterol: Code(s): E78.00 - Pure hypercholesterolemia, unspecified Category: Medical Plan: Continues on high dose statin therapy. Will continue to follow panel to ensure normal cholesterol and LDL. Goal LDL to be optimally below 70. (3) Atrial fibrillation: Code(s): I48.91 - Unspecified atrial fibrillation Category: Medical Qualifiers: Atrial fibrillation type: permanent Qualified Code(s): I48.21 - Permanent atrial fibrillation Plan: Patient continues on warfarin for anticoagulation without any overt signs of bleeding. He is doing rate control with metoprolol with good effect. Continues to follow inspector [place] (4) CAD (coronary artery disease): Code(s): I25.10 - Atherosclerotic heart disease of [place] coronary artery without angina pectoris Category: Medical Qualifiers: Associated angina: without angina Coronary Disease-Associated Artery/Lesion type: [place] artery [place] vs. transplanted heart: [place] heart Qualified Code(s): I25.10 - Atherosclerotic heart disease of [place] coronary artery without angina pectoris Plan: Again will continue taking his statin therapy with goal optimal LDL to be below 70. Medications: Changed From meclizine pt states he takes one every morning 25 mg PO TID 10 days PRN 30 tabs 0RF dizziness To meclizine pt states he takes one every morning 25 mg PO TID PRN 90 tabs 6RF dizziness 30 days
--- OUTSIDE RECORDS SUMMARY | 2024-12-26 11:39 | XMS_ITS | Encounter Summary ---
Author Organization [employer] Address [address] [facility] 7t [place] [address] Care Team Providers Care Proj Mgr Name Role Phone Sherry Ward MD Primary Care Provider [phone] Parker Robe PharmD Unavailable [phone] Reason for Visit * Reason Onset Date Comments Lab Request 01/16/2023 Patient walked i n requesting for lab examination to see potassium levels. Patient has been on kayexalate for a month already and would like to see how his levels are doing. Encounter Details Date Type Department Care Team (Late st Contact Info) Description 01/16/2023 Telephone [facility] MEDICINE [address] [place] [address] Sherry Ward MD [address] [place] [address] Lab Request (Patient walked in [...] he wants to get them done at [facility]. Informed we would have to change the [...] on filedocumented in this encounter Care Teams Proj Mgr Relationship Specialty Start Date End Date Sherry Ward MD [address] [place] [phone] PCP - General Family Medicine 11/20/18 12/17/23 Robe Parker, PharmD [address] [place] [address] Pharmacist Internal Medicine 06/15/23 documented as of this encounter
--- OUTSIDE RECORDS SUMMARY | 2024-12-26 11:39 | XMS_ITS | Encounter Summary ---
Author Organization [employer] Address [address] [facility] 7t [place] [address] Care Team Providers Care Airways Operations Specialist Name Role Phone Robe Parker PharmD Unavailable [phone] Reason for Visit * Reason Comments Med Refill Encounter Details Date Type Department Care Team ([facility] st Contact Info) Description 01/11/2024 Refill [facility] MEDICINE [address] [place], [place] [phone] Jaqui Chowdary MD [address] [place], [place] [phone] Social History Tobacco Use Types Packs/Day Years [...] on filedocumented in this encounter Care Teams Airways Operations Specialist Relationship Specialty Start Date End Date Robe Parker, IrisD [address] [place] [address] Pharmacist Internal Medicine 06/15/23 documented as of this encounter
--- OUTSIDE RECORDS SUMMARY | 2024-12-26 11:39 | XMS_ITS | Encounter Summary ---
Author Organization [employer] Address [address] [place] [address] 7t [place] [address] Care Team Providers Care Postal Service Sectional Center Manager Name Role Phone Sherry Ward MD Primary Care Provider Robe Parker PharmD Unavailable [phone] Reason for Visit * Reason Onset Date Comments Anticoagulation 12/21/2022 Encounter Details Date Type Department Care Team ([facility] st Contact Info) Description 12/21/2022 Telephone [facility] MEDICINE [address] [place], [place] [phone] Sherry Ward MD [address] [place], [place] [phone] Anticoagulation Social History Tobacco Use Types Packs/Day [...] call received at this time. Katy at [facility] reports today that Pt. INR is 1.4 Warfarin dose today 7.5mg 5mg abd Monday 2.5 mg Monday and 5mg Monday Recheck Monday. Please call Katy CURRAN if needed. documented in this encounter Plan of Treatment Not on file documented as of this encounter Visit Diagnoses Not on filedocumented in this encounter Care Teams Postal Service Sectional Center Manager Relationship Specialty Start Date End Date Sherry Ward MD [address] [place] [phone] PCP - General Family Medicine 11/20/18 12/17/23 Robe Parker, PharmD [address] [place] [address] Pharmacist Internal Medicine 06/15/23 documented as of this encounter
--- OUTSIDE RECORDS SUMMARY | 2024-12-26 11:39 | XMS_ITS | Encounter Summary ---
Author Organization [facility] Address [address] [place] [address] Phone Care Team Providers Care Motor And Controls Tester Name Role Phone Joycelyn Brothers DO Primary Care Provider Unava ilable Encounter Details Date Type Department Care Team (Late st Contact Info) Description 11/08/2022 Telephone [facility] [address] [place] [address] Alex Garcia MD Social History [...] She also wants to add that his burlap spreader started him on digoxin 0.1 mg daily. Please advise Thank you CB# [phone] documented in this encounter Plan of Treatment Not on file documented as of this encounter Visit Diagnoses Not on filedocumented in this encounter Care Teams Motor And Controls Tester Relationship Specialty Start Date End Date Joycelyn Brothers DO PCP - General 11/30/20 documented as of this encounter
--- OUTSIDE RECORDS SUMMARY | 2024-12-26 11:39 | XMS_ITS | Clinical Summary ---
Author Organization [facility] Address [address] [facility] [place] [address] Phone Care Team Providers Care Franchise Broker Name Role Phone Joycelyn Brothers DO Primary [...] adenomatous polyp of colon 01/26/2024 Tinnitus 03/21/2023 [facility] current use of anticoagulant Overview (01/26/2024): Last Assessment & Plan: - indication: Atrial fibrilation - medication: warfarin - monitored by [facility] Anticoagulation Clinic - most [...] 04/02/2021 Overview (01/26/2024): Last Assessment & Plan: -Inside Plant Supervisor: Dr. Roland, last seen in 12/27/21 -Baseline SCr 2.4-2.8; eGFR 22-26, CrCl 28.5 -Most recent lab: 08/05/22 K 5.2, BUN 46, SCr 2.48; eGFR 26 -Avoid nephrotoxic drugs/substances and behaviors, including NSAIDs use. -Renal dose medications. Tinea pedis 04/30/2018 Ischemic heart disease 04/30/2018 Overview (01/26/2024): Last Assessment & Plan: -Home Visits Nurse, Dr. Cain, seen on 11/10/22 -TIA in January 2018. Dx Afib. Started on Coumadin. -03/14/18 BRITTANY to distal RCA. Completed uninterrupted Plavix and Coumadin therapy for 1 year. Plan was to swithc Plavix to ASA. Pt is not on ASA or Plavix at this time because his CAD is stable per etiologist. - Last echo in 12/28/21: Normal LV function, EF 55-60%. slight decrease from last echo. mild GERD reguigitation -Continue current medications History of placement of stent for coronary arter y disease 04/30/2018 Chronic atrial fibrillation 02/09/2018 Overview (01/26/2024): Last Assessment & Plan: A-fib today, rate controlled. pt is usually asymptomatic whether he is bradycardia and tachycardia -his etiologist recommends rate control rather than rhythm control - Continue rate control with metoprolol tartrate 100 mg bid - Continue digoxin 125 mcg daily - Continue warfarin, which is monitored by [facility] Anticoagulation clinic -- Treatment [...] Completed 03/21/2016, 06/18/2015, 04/14/2010 Insurance DUAL COMPLETE ([id number]) DUAL COMPLETE ([id number]) Care Teams Franchise Broker Relationship Specialty Start Date End Date Joycelyn Brothers DO PCP - General 11/30/20
--- OUTSIDE RECORDS SUMMARY | 2024-12-26 11:39 | XMS_ITS | Encounter Summary ---
Author Organization [employer] Address [address] [facility] 7t [place] [address] Care Team Providers Care Senior Administrative Support Name Role Phone Sherry Ward MD Primary Care Provider [phone] Keith Robe PharmD Unavailable [phone] Encounter Details Date Type Department Care Team ([facility] st Contact Info) Description 11/02/2023 Orders Only [facility] MEDICINE [address] [place], [place] [phone] Sherry Ward MD [address] [place], [place] [phone] Social History Tobacco Use Types Packs/Day Years [...] on filedocumented in this encounter Care Teams Senior Administrative Support Relationship Specialty Start Date End Date Sherry Ward MD [address] [place] [address] PCP - General Family Medicine 11/20/18 12/17/23 Robe Parker, PharmD [address] [place] [address] Pharmacist Internal Medicine 06/15/23 documented as of this encounter
--- OUTSIDE RECORDS SUMMARY | 2024-12-26 11:39 | XMS_ITS | Encounter Summary ---
Author Organization [employer] Address [address] [facility] 7t [place] [address] Care Team Providers Care Operations Developer Name Role Phone Sherry Ward MD Primary Care Provider [phone] Keith Robe PharmD Unavailable [phone] Encounter Details Date Type Department Care Team (Late st Contact Info) Description 11/02/2023 Orders Only [facility] MEDICINE [address] [place], [place] [phone] Sherry Ward MD [address] [place], [place] [phone] Left foot pain (Primary Dx) Social History [...] limb documented in this encounter Care Teams Operations Developer Relationship Specialty Start Date End Date Sherry Ward MD [address] [place] [address] PCP - General Family Medicine 11/20/18 12/17/23 Robe Parker, IrisD [address] [place] [address] Pharmacist Internal Medicine 06/15/23 documented as of this encounter
--- OUTSIDE RECORDS SUMMARY | 2024-12-26 11:39 | XMS_ITS | Encounter Summary ---
Author Organization [employer] Address [address] [facility] 7t [place] [address] Care Team Providers Care Vessel Scrapper Helper Name Role Phone Robe Parker PharmD Unavailable [phone] Reason for Visit * Reason Comments Med Refill Encounter Details Date Type Department Care Team ([facility] st Contact Info) Description 05/07/2024 Refill [facility] MEDICINE [address] [place], [place] [phone] Sherry Ward MD [address] [place], [place] [phone] Social History Tobacco Use Types Packs/Day Years [...] on filedocumented in this encounter Care Teams Vessel Scrapper Helper Relationship Specialty Start Date End Date Robe Parker, IrisD [address] [place] [address] Pharmacist Internal Medicine 06/15/23 documented as of this encounter
--- OUTSIDE RECORDS SUMMARY | 2024-12-26 11:39 | XMS_ITS | Encounter Summary ---
Author Organization [employer] Address [address] [facility] 7t [place] [address] Care Team Providers Care Ship'S Officer Name Role Phone Robe Parker PharmD Unavailable [phone] Reason for Visit * Reason Comments Med Refill Encounter Details Date Type Department Care Team ([facility] st Contact Info) Description 03/08/2024 Refill [facility] MEDICINE [address] [place], [place] [phone] Roopa Unger ANP [address] [place], [place] [phone] Social History Tobacco Use Types Packs/Day Years [...] on filedocumented in this encounter Care Teams Ship'S Officer Relationship Specialty Start Date End Date Robe Parker PharmD [address] [place] [phone] Pharmacist Internal Medicine 06/15/23 documented as of this encounter
--- OUTSIDE RECORDS SUMMARY | 2024-12-26 11:39 | XMS_ITS | Encounter Summary ---
Author Organization [employer] Address [address] [facility] 7t [place] [address] Care Team Providers Care Farm Machine Tender Name Role Phone Robe Parker PharmD Unavailable [phone] Reason for Visit * Reason Comments Med Refill Encounter Details Date Type Department Care Team ([facility] st Contact Info) Description 03/08/2024 Refill [facility] MEDICINE [address] [place], [place] [phone] Sherry Ward MD [address] [place], [place] [phone] Neuropathic pain Social History Tobacco Use Types [...] pain documented in this encounter Care Teams Farm Machine Tender Relationship Specialty Start Date End Date Robe Parker, IrisD [address] [place] [address] Pharmacist Internal Medicine 06/15/23 documented as of this encounter
--- OUTSIDE RECORDS SUMMARY | 2024-12-26 11:39 | XMS_ITS | Encounter Summary ---
Author Organization [employer] Address [address] [place] [address] 7t [place] [address] Care Team Providers Care Millwright Name Role Phone Sherry Ward MD Primary Care Provider [phone] Parker Robe PharmD Unavailable [phone] Reason for Visit * Reason Onset Date Comments triage 11/25/2022 Encounter Details Date Type Department Care Team ([facility] st Contact Info) Description 11/25/2022 Telephone [facility] MEDICINE [address] [place], [place] [phone] Sherry Ward MD [address] [place], [place] [phone] triage Social History Tobacco Use Types Packs/Day [...] 11/25/2022 4:06 PM EST Triage call with [facility] Technician [place] [id number] Pt reports son came over this morning to test with home test. Pt isn't sure if it is positive and is requesting medication. Pt reports has had Covid before . Pt is unable to come to [facility] today for further testing. Pt symptoms are [...] on filedocumented in this encounter Care Teams Millwright Relationship Specialty Start Date End Date Sherry Ward MD [address] [place] [address] PCP - General Family Medicine 11/20/18 12/17/23 Robe Parker PharmD [address] [place] [address] Pharmacist Internal Medicine 06/15/23 documented as of this encounter
--- OUTSIDE RECORDS SUMMARY | 2024-12-26 11:39 | XMS_ITS | Encounter Summary ---
Author Organization [employer] Address [address] [facility] 7t [place] [address] Care Team Providers Care Convolute Tube Winder Name Role Phone Robe Parker PharmD Unavailable [phone] Reason for Visit * Reason Comments Med Refill Encounter Details Date Type Department Care Team ([facility] st Contact Info) Description 08/05/2024 Refill [facility] MEDICINE [address] [place], [place] [phone] Sherry Ward MD [address] [place], [place] [phone] Social History Tobacco Use Types Packs/Day Years [...] on filedocumented in this encounter Care Teams Convolute Tube Winder Relationship Specialty Start Date End Date Robe Parker, IrisD [address] [place] [address] Pharmacist Internal Medicine 06/15/23 documented as of this encounter
--- OUTSIDE RECORDS SUMMARY | 2024-12-26 11:39 | XMS_ITS | Encounter Summary ---
Author Organization [facility] Address [address] [facility] [address] [place] [address] Phone Care Team Providers Care Director Graphics Name Role Phone Joycelyn Brothers DO Primary Care Provider Ema ilva Encounter Details Date Type Department Care Team (Late st Contact Info) Description 05/29/2021 Orders Only [facility] [address] [place] [address] [place] [phone] Alex Garcia MD Chronic kidney disease stage [...] (HCC) documented in this encounter Care Teams Director Graphics Relationship Specialty Start Date End Date Joycelyn Brothers DO PCP - General 11/30/20 documented as of this encounter
--- OUTSIDE RECORDS SUMMARY | 2024-12-26 11:39 | XMS_ITS | Encounter Summary ---
Author Organization [employer] Address [address] [place] [address] 7t [place] [address] Care Team Providers Care Medical Anthropologist Name Role Phone Sherry Ward MD Primary Care Provider [phone] Keith Robe PharmD Unavailable [phone] Encounter Details Date Type Department Care Team ([facility] st Contact Info) Description 01/23/2023 Orders Only [facility] MED[facility]INE [address] [place], [place] [phone] Nivia Serrato MD [address] [place] [address] Hyperkalemia (Primary Dx) Social History Tobacco Use [...] Hyperpotassemia documented in this encounter Care Teams Medical Anthropologist Relationship Specialty Start Date End Date Sherry Ward MD [address] [place], [place] [phone] PCP - General Family Medicine 11/20/18 12/17/23 Robe Parker, PharmD [address] [place] [address] Pharmacist Internal Medicine 06/15/23 documented as of this encounter
--- OUTSIDE RECORDS SUMMARY | 2024-12-26 11:39 | XMS_ITS | Encounter Summary ---
Author Organization [employer] Address [address] [facility] 7t [place] [address] Care Team Providers Care Diazo Technician Name Role Phone Robe Parker PharmD Unavailable [phone] Reason for Visit * Reason Comments Med Refill Encounter Details Date Type Department Care Team ([facility] st Contact Info) Description 03/11/2024 Refill [facility] [address] [place], [place] [phone] Sherry Ward MD [address] [place], [place] [phone] Neuropathic pain Social History Tobacco Use Types [...] pain documented in this encounter Care Teams Diazo Technician Relationship Specialty Start Date End Date Robe Parker, IrisD [address] [place] [address] Pharmacist Internal Medicine 06/15/23 documented as of this encounter
--- OUTSIDE RECORDS SUMMARY | 2024-12-26 11:39 | XMS_ITS | Encounter Summary ---
Author Organization [employer] Address [address] [place] [address] Care Team Providers Care Signal Maintainer Name Role Phone Robe Parker PharmD Unavailable [phone] Reason for Visit * Reason Comments Med Refill Encounter Details Date Type Department Care Team ([facility] st Contact Info) Description 09/26/2024 Refill [facility] MED[facility] [address] [place], [place] [phone] Sherry Ward MD [address] [place], [place] [phone] Dyslipidemia Social History Tobacco Use Types Packs/Day [...] hyperlipidemia documented in this encounter Care Teams Signal Maintainer Relationship Specialty Start Date End Date Robe Parker PharmD [address] [place] [address] Pharmacist Internal Medicine 06/15/23 documented as of this encounter
--- OUTSIDE RECORDS SUMMARY | 2024-12-26 11:39 | XMS_ITS | Encounter Summary ---
Author Organization [employer] Address [address] [place] [address] 7t [place] [address] Care Team Providers Care Cryptographer Name Role Phone Sherry Ward MD Primary Care Provider [phone] Robe Parker PharmD Unavailable [phone] Reason for Referral * Imaging (Routine) - Closed Specialty Diagnoses / Procedures Referred By Contac t Referred To Contact Diagnoses Vertigo Ischemic heart disease Chronic atrial fibrillation (CMS/HCC) Essential hypertension Procedures Mr Brain w/ and w/o Contrast Sherry Ward MD [address] [place] [address] Phone: tel: fax: [facility] Scan [address] [place], [place] Phone: tel: fax: Referral ID Status Reason Start Date Expiration Date Visits Re quested Visits Authorized [id number] Closed 11/17/2022 11/17/2023 1 1 Encounter Details Date Type Department Care Team (Late st Contact Info) Description 11/08/2022 Orders Only [facility] MEDICINE [address] [place], [place] [phone] Sherry Ward MD [address] [place], [place] [phone] Vertigo (Primary Dx); Ischemic heart disease; Chronic [...] hypertension documented in this encounter Care Teams Cryptographer Relationship Specialty Start Date End Date Sherry Ward MD [address] [place] [address] PCP - General Family Medicine 11/20/18 12/17/23 Robe Parker, IrisD [address] [place] [address] Pharmacist Internal Medicine 06/15/23 documented as of this encounter
--- OUTSIDE RECORDS SUMMARY | 2024-12-26 11:39 | XMS_ITS | Clinical Summary ---
Author Organization [employer] Address [address] [place] [address] 7t [place] [address] Care Team Providers Care Heel Slugger Name Role Phone Robe Parker PharmD Unavailable [phone] Allergies Active Allergy Reactions Criticality Noted Date [...] 1 3 Active Lancets (OneTouch Delica Plus [id number]) [facility] Check blood sugar once daily 100 each 11 3 Active Blood Glucose Monitoring Suppl (ONE TOUCH ULTRA 2) w/Device kitIndications:T ype 2 diabetes mellitus with stage 4 chronic kidney disease, without long-term current use of insulin ([facility]) 1 kit Once daily. 1 kit 3 [...] taking febuxostat 40 mg daily prescribed by medical transport specialist - continue febuxostat 40 mg daily [...] fibrilation - medication: warfarin - monitored by [facility] Anticoagulation Clinic - most recent INR 2.2 on 10/20/23 - continue current treatment plan Assessment & Plan (03/21/2023 11:52 AM EDT): - indication: Atrial fibrilation - medication: warfarin - monitored by [facility] Anticoagulation Clinic - most recent INR 1.6 [...] Assessment & Plan (11/05/2023 4:30 PM EST): -Electric Melt Operator: Dr. Roland, last seen in Sep 2023 -Baseline SCr 2.0-2.4; eGFR 27-32, K 4.9-5.4 -Avoid nephrotoxic drugs/substances and behaviors, including NSAIDs use. -Renal dose medications. Assessment & Plan (03/13/2023 1:36 PM EDT): -Electric Melt Operator: Dr. Roland, last seen in 12/27/21 -Baseline SCr 2.4-2.8; eGFR 22-26, CrCl 28.5 -Most recent lab: 08/05/22 K 5.2, BUN 46, SCr 2.48; eGFR 26 -Avoid nephrotoxic drugs/substances and behaviors, including NSAIDs use. -Renal dose medications. Assessment & Plan (12/19/2022 1:28 PM EST): -Electric Melt Operator: Dr. Roland, last seen in 12/27/21 -Baseline SCr 2.4-2.8; eGFR 22-26, CrCl 28.5 -Most recent lab: 08/05/22 K 5.2, BUN 46, SCr 2.48; eGFR 26 -Avoid nephrotoxic drugs/substances and behaviors, including NSAIDs use. -Renal dose medications. Assessment & Plan (11/07/2022 4:55 AM EST): -Electric Melt Operator: Dr. Roland, last seen in 12/27/21 -Baseline SCr 2.4-2.8; eGFR 22-26, CrCl 28.5 -Most recent lab: 08/05/22 K 5.2, BUN 46, SCr 2.48; eGFR 26 -Avoid nephrotoxic drugs/substances and behaviors, including NSAIDs use. -Renal dose medications. Chronic interstitial nephritis 04/02/2021 Proteinuria 04/02/2021 Ischemic heart disease 04/30/2018 Assessment & Plan (11/05/2023 4:06 PM EST): -Staff Rn, Dr. Cain, seen in April 2023 -TIA [...] Assessment & Plan (03/13/2023 1:29 PM EDT): -Staff Rn, Dr. Cain, seen on 11/10/22 -TIA in January 2018. Dx Afib. Started on Coumadin. -03/14/18 BRITTANY to distal RCA. Completed uninterrupted Plavix and Coumadin therapy for 1 year. Plan was to swithc Plavix to ASA. Pt is not on ASA or Plavix at this time because his CAD is stable per speed belt sander. - Last echo in 12/28/21: Normal LV function, EF 55-60%. slight decrease from last echo. mild GERD reguigitation -Continue current medications Assessment & Plan (12/25/2022 7:27 AM EST): -Staff Rn, Dr. Cain, seen on 11/10/22 -TIA in January 2018. Dx Afib. Started on Coumadin. -03/14/18 BRITTANY to distal RCA. Completed uninterrupted Plavix and Coumadin therapy for 1 year. Plan was to swithc Plavix to ASA. Pt is not on ASA or Plavix at this time because his CAD is stable per speed belt sander. - Last echo in 12/28/21: Normal LV function, EF 55-60%. slight decrease from last echo. mild GERD reguigitation -Continue current medications Assessment & Plan (11/07/2022 5:02 AM EST): -Staff Rn, Dr. Cain, seen on 05/19/22 -TIA in January 2018. Dx Afib. Started on Coumadin. -03/14/18 BRITTANY to distal RCA. Completed uninterrupted Plavix and Coumadin therapy for 1 year. Plan was to swithc Plavix to ASA. Pt is not on ASA or Plavix at this time because his CAD is stable per speed belt sander. - Last echo in 12/28/21: Normal LV [...] whether he is bradycardia and tachycardia -his speed belt sander recommends rate control rather than rhythm control - Continue rate control with metoprolol tartrate 100 mg bid - Continue digoxin 125 mcg daily - Continue warfarin, which is monitored by [facility] Anticoagulation clinic -- Treatment Hx: --Previously on [...] whether he is bradycardia and tachycardia -his speed belt sander recommends rate control rather than rhythm control - Continue rate control with metoprolol tartrate 100 mg bid - Continue digoxin 125 mcg daily - Continue warfarin, which is monitored by [facility] Anticoagulation clinic -- Treatment Hx: --Previously on [...] wheter he is bradycardiac and tachycardiac -his speed belt sander recommends rate control rather than rhythm control - Continue rate control with metoprolol tartrate 100 mg bid - Continue digoxin 125 mcg daily - Continue warfarin, which is monitored by [facility] Anticoagulation clinic -- Treatment Hx: --Previously on [...] 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) 12/25/2014 Type 2 diabetes mellitus 12/25/2014 Assessment [...] Logan -Pt requests to be referred to [facility] where his son goes Assessment & [...] wheter he is bradycardiac and tachycardiac -his speed belt sander recommends rate control rather than rhythm control [...] decreased -Continue Coumadin, which is monitored by [facility] anticoagulation clinic. -Holter monitor on 04/13/22 showed average HR 61 bpm, sinus. A-fib 36%. -Holter monitor on 09/08/22 showed average HR 101 bpm, baseline A-fib, HR > 100 for 67% period -Pt states he has been taking digoxin. Will confirm it with speed belt sander. Mild intermittent asthma 09/01/201503/2023 Encounters Date Type Department Care Team Description 09/26/2024 Refill [facility] MED[facility]INE [address] [place] [address] Sherry Ward MD Dyslipidemia from Last 3 [...] disease, without long-term current use of insulin ([facility]) COLONOSCOPY Routine 04/22/2019 from Last 3 Months or Most Recently Relevant to Health Maintenance Results * (ABNORMAL) Lipid Panel with Reflex to Direct LDL (10/30/2023 2:57 PM EST) Triglycerides 433(H) <150 mg/dL [facility] Comment:Desirable Triglyceri de: less than 150 mg/dLBorderline High Triglyceride 150-199 mg/dLHigh Triglyceride: 200-499 mg/dLVery High Triglyceride: greater than or equal to 5OO mg/dL Cholesterol 266(H) <200 mg/dL [facility] Comment:Desirable Cholestero l: less than 200 mg/dLBorderline High Cholesterol: 200-239 mg/dLHigh Cholesterol: greater than 239 mg/dL LDL Cholesterol Calculated TNP <100 mg/dL [facility] Comment:Unable to calculate the LDL. The formula of Friedwald,Olsen, and Stefanie is only valid if the triglycerides areless than 400 mg/dl. HDL Cholesterol 28(L) >40 mg/dL [facility] Comment:Desirable HDL: great er than 40 mg/dL Note: This HDL assay may give artificially low results in patients with liver disease. Blood 10/30/2023 2:57 PM EST 10/30/2023 3:58 PM EST us Sherry Ward MD LAB BLOOD ORDERABLES Final Resul t [facility] [address] [place] [address] [phone] * (ABNORMAL) POCT glycosylated hemoglobin (Hgb [...] Most Recently Relevant to Health Maintenance Insurance [facility] DUAL COMPLETE [facility] STAND[facility] Care Teams Heel Slugger Relationship Specialty Start Date End Date Robe Parker, PharmD [address] [place] [address] Pharmacist Internal Medicine 06/15/23
--- OUTSIDE RECORDS SUMMARY | 2024-12-26 11:39 | XMS_ITS | Encounter Summary ---
Author Organization [employer] Address [address] [place] [address] 7t [place] [address] Care Team Providers Care Speech Language Pathology Assistant Name Role Phone Sherry Ward MD Primary Care Provider [phone] Robe Parker PharmD Unavailable [phone] Encounter Details Date Type Department Care Team (Late st Contact Info) Description 11/04/2022 Orders Only [facility] [address] [place] [address] Sharon Ko, RN Social History Tobacco Use [...] on filedocumented in this encounter Care Teams Speech Language Pathology Assistant Relationship Specialty Start Date End Date Sherry Ward MD [address] [place] [address] PCP - General Family Medicine 11/20/18 12/17/23 Robe Parker, PharmD [address] [place] [address], [place] [address] Pharmacist Internal Medicine 06/15/23 documented as of this encounter
== END 2024-12-26 12:11 | disposition home or self-care (01) ==
LOC: HO.HMCH 11:37
PROVIDERS: PCP Physician Assistant; Visit Provider Physician Assistant
DX: N18.5 Chronic kidney disease, stage 5 (principal); E78.00 Pure hypercholesterolemia, unspecified; I48.21 Permanent atrial fibrillation; I25.10 Atherosclerotic heart disease of native coronary artery without angina pectoris

== ENCOUNTER → 2024-12-26 11:37 | Outpatient (BNVA) | payer OTHER, SELFPAY | PROVIDERS: PCP Physician Assistant; Visit Provider Physician Assistant | DX: N18.5 Chronic kidney disease, stage 5 (principal); E78.00 Pure hypercholesterolemia, unspecified; I48.21 Permanent atrial fibrillation; I25.10 Atherosclerotic heart disease of native coronary artery without angina pectoris | CPT/HCPCS: 96127 ==

== ENCOUNTER 2025-01-01 11:17 | Outpatient (AMB) | payer OTHER, SELFPAY ==
--- NOTE | 2025-01-01 11:25 | MHC.OFFVISCO ---
Intake Intake Visit Reasons: Anticoagulation Allergies lisinopril [LISINOPRIL] Allergy (Severe, Verified 01/01/25 11:20) ACUTE KIDNEY INJURY oxycodone [Percocet] Allergy (Intermediate, Verified 01/01/25 11:20) agitation codeine [CODEINE] Allergy (Unknown, Verified 01/01/25 11:20) AGITATION morphine [MORPHINE] Allergy (Unknown, Verified 01/01/25 11:20) AGITATION, confusion From PERCOCET Allergy (Unknown, Uncoded 01/01/25 11:20) AGITATION Medication List - Last Reconciled 01/01/25 by Lisa White RN amlodipine 2.5 mg PO DAILY atorvastatin 80 mg PO QAM cholecalciferol (vitamin D3) 25 mcg PO DAILY compression socks, large As directed febuxostat (Uloric) 40 mg PO DAILY fluticasone propionate 50 mcg/actuation 1 spray intranasal DAILY 30 days furosemide (Lasix) 40 mg PO QAM 90 days gabapentin 200 mg (2 x 100 mg) PO BEDTIME 30 days meclizine 25 mg PO TID PRN 30 days metoprolol tartrate 50 mg See Protocol PO BID 90 days prednisone 10 mg PO ONCE PRN simethicone 180 mg PO QID 30 days warfarin 7.5 mg See Protocol PO MO warfarin 5 mg See Protocol PO SUTUWETHFRSA Nursing Note INR 1.9-?? out of therapeutic range of 2-3 Medications and supplements reviewed Patient status: no c.o. denies missed dose Medications or supplements: no changes Diet: same Denies any signs and symptoms of bleeding or clotting or unusual bruising Bleeding, bruising, clotting discussed Nutritional guidance given: no greens for 2 days, eat a red today Dose: 7.5mg today then cont reg dosing, 5mg x 6, 7.5mg x 1 F/U INR Date : 2 weeks?? Patient verbalizing understanding of instructions given. 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
[2025-01-01 11:26] LABS: Prothrombin Time Whole Bld POC 22.3 sec (11.1-13.5); ~PT, ~INR - Anti Coag Clinic 1.9 (0.9-1.1)
--- OUTSIDE RECORDS SUMMARY | 2025-01-01 13:12 | XMS_ITS | Clinical Summary ---
Author Organization [employer] Address [address] [place] [address] 7t [place] [address] Care Team Providers Care Public Health Informatician Name Role Phone Robe Parker PharmD Unavailable [phone] Allergies Active Allergy Reactions Criticality Noted Date [...] 1 3 Active Lancets (OneTouch Delica Plus [id number]) [facility] Check blood sugar once daily 100 each 11 3 Active Blood Glucose Monitoring Suppl (ONE TOUCH ULTRA 2) w/Device kitIndications:T ype 2 diabetes mellitus with stage 4 chronic kidney disease, without long-term current use of insulin ([facility]) 1 kit Once [...] taking febuxostat 40 mg daily prescribed by category director - continue febuxostat 40 mg daily - [...] fibrilation - medication: warfarin - [facility] by [facility] - most recent INR 2.2 on 10/20/23 - continue current treatment plan Assessment & Plan (03/21/2023 11:52 AM EDT): - indication: Atrial fibrilation - medication: warfarin - monitored by [facility] - most recent INR 1.6 [...] Assessment & Plan (11/05/2023 4:30 PM EST): -Psychology Professor: Dr. Roland, last seen in Sep 2023 -Baseline SCr 2.0-2.4; eGFR 27-32, K 4.9-5.4 -Avoid nephrotoxic drugs/substances and behaviors, including NSAIDs use. -Renal dose medications. Assessment & Plan (03/13/2023 1:36 PM EDT): -Psychology Professor: Dr. Roland, last seen in 12/27/21 -Baseline SCr 2.4-2.8; eGFR 22-26, CrCl 28.5 -Most recent lab: 08/05/22 K 5.2, BUN 46, SCr 2.48; eGFR 26 -Avoid nephrotoxic drugs/substances and behaviors, including NSAIDs use. -Renal dose medications. Assessment & Plan (12/19/2022 1:28 PM EST): -Psychology Professor: Dr. Roland, last seen in 12/27/21 -Baseline SCr 2.4-2.8; eGFR 22-26, CrCl 28.5 -Most recent lab: 08/05/22 K 5.2, BUN 46, SCr 2.48; eGFR 26 -Avoid nephrotoxic drugs/substances and behaviors, including NSAIDs use. -Renal dose medications. Assessment & Plan (11/07/2022 4:55 AM EST): -Psychology Professor: Dr. Roland, last seen in 12/27/21 -Baseline SCr 2.4-2.8; eGFR 22-26, CrCl 28.5 -Most recent lab: 08/05/22 K 5.2, BUN 46, SCr 2.48; eGFR 26 -Avoid nephrotoxic drugs/substances and behaviors, including NSAIDs use. -Renal dose medications. Chronic interstitial nephritis 04/02/2021 Proteinuria 04/02/2021 Ischemic heart disease 04/30/2018 Assessment & Plan (11/05/2023 4:06 PM EST): -Feed Research Technician, Dr. Cain, seen in April 2023 -TIA [...] Assessment & Plan (03/13/2023 1:29 PM EDT): -Feed Research Technician, Dr. Cain, seen on 11/10/22 -TIA in January 2018. Dx Afib. Started on Coumadin. -03/14/18 BRITTANY to distal RCA. Completed uninterrupted Plavix and Coumadin therapy for 1 year. Plan was to swithc Plavix to ASA. Pt is not on ASA or Plavix at this time because his CAD is stable per development advisor. - Last echo in 12/28/21: Normal LV function, EF 55-60%. slight decrease from last echo. mild GERD reguigitation -Continue current medications Assessment & Plan (12/25/2022 7:27 AM EST): -Feed Research Technician, Dr. Cain, seen on 11/10/22 -TIA in January 2018. Dx Afib. Started on Coumadin. -03/14/18 BRITTANY to distal RCA. Completed uninterrupted Plavix and Coumadin therapy for 1 year. Plan was to swithc Plavix to ASA. Pt is not on ASA or Plavix at this time because his CAD is stable per development advisor. - Last echo in 12/28/21: Normal LV function, EF 55-60%. slight decrease from last echo. mild GERD reguigitation -Continue current medications Assessment & Plan (11/07/2022 5:02 AM EST): -Feed Research Technician, Dr. Cain, seen on 05/19/22 -TIA in January 2018. Dx Afib. Started on Coumadin. -03/14/18 BRITTANY to distal RCA. Completed uninterrupted Plavix and Coumadin therapy for 1 year. Plan was to swithc Plavix to ASA. Pt is not on ASA or Plavix at this time because his CAD is stable per development advisor. - Last echo in 12/28/21: Normal LV [...] whether he is bradycardia and tachycardia -his development advisor recommends rate control rather than rhythm control - Continue rate control with metoprolol tartrate 100 mg bid - Continue digoxin 125 mcg daily - Continue warfarin, which is monitored by [facility] -- Treatment Hx: --Previously on [...] whether he is bradycardia and tachycardia -his development advisor recommends rate control rather than rhythm control - Continue rate control with metoprolol tartrate 100 mg bid - Continue digoxin 125 mcg daily - Continue warfarin, which is monitored by [facility] -- Treatment Hx: --Previously on [...] wheter he is bradycardiac and tachycardiac -his development advisor recommends rate control rather than rhythm control - Continue rate control with metoprolol tartrate 100 mg bid - Continue digoxin 125 mcg daily - Continue warfarin, which is monitored by [facility] -- Treatment Hx: --Previously on [...] microalbuminuria due to type 2 diabetes mellitus ([facility]) 12/25/2014 Type 2 [...] Logan -Pt requests to be referred to [facility] where his son goes Assessment & [...] wheter he is bradycardiac and tachycardiac -his development advisor recommends rate control rather than rhythm control [...] decreased -Continue Coumadin, which is monitored by [facility]. -Holter monitor on 04/13/22 showed average HR 61 bpm, sinus. A-fib 36%. -Holter monitor on 09/08/22 showed average HR 101 bpm, baseline A-fib, HR > 100 for 67% period -Pt states he has been taking digoxin. Will confirm it with development advisor. Mild intermittent asthma 09/01/201503/2023 Immunizations Name Administration Dates Next Due Hep [...] 11/11/2021, 02/16/2021, 01/19/2021 Influenza Vaccine (#1) 2024 3, 08/04/2022, 08/16/2021, Additional history exists SDOH Screening [...] 2:03 PM EST) No Robe Parker, Gabby Procedures Procedure Name Priority Date/Time Associated Diagnosis Comments LIPID PANEL WITH REFLEX TO DIRECT LDL Routine 10/30/2023 2:57 PM EST Dyslipidemia POCT GLYCOSYLATED HEMOGLOBIN (HGB A1C) Routine 10/30/2023 2:23 PM EST Type 2 diabetes mellitus with stage 4 chronic kidney disease, without long-term current use of insulin ([facility]) HM COLONOSCOPY Routine 04/22/2019 from Last 3 Months or Most Recently Relevant to Health Maintenance Results * (ABNORMAL) Lipid Panel with Reflex to Direct LDL (10/30/2023 2:57 PM EST) Triglycerides 433(H) <150 mg/dL [facility] Comment:Desirable Triglyceri de: less than 150 mg/dLBorderline High Triglyceride 150-199 mg/dLHigh Triglyceride: 200-499 mg/dLVery High Triglyceride: greater than or equal to 5OO mg/dL Cholesterol 266(H) <200 mg/dL [facility] Comment:Desirable Cholestero l: less than 200 mg/dLBorderline High Cholesterol: 200-239 mg/dLHigh Cholesterol: greater than 239 mg/dL LDL Cholesterol Calculated TNP <100 mg/dL [facility] Comment:Unable to calculate the LDL. The formula of Friedwald,Olsen, and Stefanei is only valid if the triglycerides areless than 400 mg/dl. HDL Cholesterol 28(L) >40 mg/dL [facility] Comment:Desirable HDL: great er than 40 mg/dL Note: This HDL assay may give artificially low results in patients with liver disease. Blood 10/30/2023 2:57 PM EST 10/30/2023 3:58 PM EST Sherry Ward MD LAB BLOOD ORDERABLES Final Resul t [facility] [address] [place] [phone] * (ABNORMAL) POCT glycosylated hemoglobin (Hgb A1c) (10/30/2023 2:23 PM EST) Hemoglobin A1C 7.1(A) 4.0 - 6.0 % QC Media Lot # [id number] Lot# Expiration Date Blood Capillary blood specimen / Unknown 10/30/2023 2:23 PM EST Sherry Ward MD POINT OF CARE TEST ENTER/EDIT OR DERABLES Final Result * Hm Colonoscopy (04/22/2019) [facility] Colonoscopy Normal Normal us Historical Provider MD HEALTH MAINTENANCE Final Result from Last 3 Months or Most Recently Relevant to Health Maintenance Insurance [facility] STANDARD Care Teams Public Health Informatician Relationship Specialty Start Date End Date Robe Parker PharmD [address] [place] [phone] Pharmacist Internal Medicine 06/15/23
--- OUTSIDE RECORDS SUMMARY | 2025-01-01 13:12 | XMS_ITS | Encounter Summary ---
Author Organization [employer] Address [address] [facility] 7t [place] [address] Care Team Providers Care Animal Attendant Name Role Phone Sherry Ward MD Primary Care Provider Keith Robe PharmD Unavailable [phone] Encounter Details Date Type Department Care Team (Late st Contact Info) Description 11/02/2023 Orders Only [facility] MEDICINE [address] [place], [place] [phone] Sherry Ward MD [address] [place], [place] [phone] Left foot pain (Primary Dx) Social History [...] Pressure 149/92( 023 2:03 PM EST) No Rboe Parker, Gabby documented as of this encounter Visit Diagnoses Diagnosis Left foot pain- Primary Pain in soft tissues of limb documented in this encounter Care Teams Animal Attendant Relationship Specialty Start Date End Date Sherry Ward MD [address] [place] [address] PCP - General Family Medicine 11/20/18 12/17/23 Robe Parker, IrisD [address] [place] [address] Pharmacist Internal Medicine 06/15/23 documented as of this encounter
--- OUTSIDE RECORDS SUMMARY | 2025-01-01 13:12 | XMS_ITS | Encounter Summary ---
Author Organization [employer] Address [address] [place] [address] 7t [place] [address] Care Team Providers Care Ink Maker Name Role Phone Sherry Ward MD Primary Care Provider [phone] Robe Parker PharmD Unavailable [phone] Reason for Visit * Reason Onset Date Comments Anticoagulation 12/21/2022 Encounter Details Date Type Department Care Team ([facility] st Contact Info) Description 12/21/2022 Telephone [facility] MEDICINE [address] [place], [place] [phone] Sherry Ward MD 230 [place], [place] [phone] Anticoagulation Social History Tobacco Use Types Packs/Day [...] call received at this time. Katy at [facility] reports today that Pt. INR is 1.4 Warfarin dose today 7.5mg 5mg abd Monday 2.5 mg Monday and 5mg Monday Recheck Monday. Please call Katy CURRAN if needed. documented in this encounter Plan of Treatment Not on file documented as of this encounter Visit Diagnoses Not on filedocumented in this encounter Care Teams Ink Maker Relationship Specialty Start Date End Date Sherry Ward MD [address] [place] [address] PCP - General Family Medicine 11/20/18 12/17/23 Robe Parker, PharmD [address] [place] [address] Pharmacist Internal Medicine 06/15/23 documented as of this encounter
--- OUTSIDE RECORDS SUMMARY | 2025-01-01 13:12 | XMS_ITS | Encounter Summary ---
Author Organization [employer] Address [address] [facility] 7t [place] [address] Care Team Providers Care Nurse Navigator Name Role Phone Robe Parker PharmD Unavailable [phone] Reason for Visit * Reason Comments Med Refill Encounter Details Date Type Department Care Team ([facility] st Contact Info) Description 08/05/2024 Refill [facility] 230 [place], [place] [phone] Sherry Ward MD [address] [place], [place] [phone] Social History Tobacco Use Types Packs/Day Years [...] on filedocumented in this encounter Care Teams Nurse Navigator Relationship Specialty Start Date End Date Robe Parker, IrisD [address] [place] [phone] Pharmacist Internal Medicine 06/15/23 documented as of this encounter
--- OUTSIDE RECORDS SUMMARY | 2025-01-01 13:12 | XMS_ITS | Encounter Summary ---
Author Organization [employer] Address [address] [place] [address] 7t [place] [address] Care Team Providers Care Naprapath Name Role Phone Sherry Ward MD Primary Care Provider [phone] Robe Parker PharmD Unavailable [phone] Encounter Details Date Type Department Care Team (Late st Contact Info) Description 11/04/2022 Orders Only [facility] MEDICINE 230 [place] [address] Sharon Ko, RN Social History Tobacco Use [...] on filedocumented in this encounter Care Teams Naprapath Relationship Specialty Start Date End Date Sherry Ward MD 230 [place] [address] PCP - General Family Medicine 11/20/18 12/17/23 Robe Parker, PharmD [address] [place] [address], [place] [address] Pharmacist Internal Medicine 06/15/23 documented as of this encounter
--- OUTSIDE RECORDS SUMMARY | 2025-01-01 13:12 | XMS_ITS | Encounter Summary ---
Author Organization [employer] Address [address] [facility] 7t [place] [address] Care Team Providers Care Survey Crew Chief Name Role Phone Robe Parker PharmD Unavailable [phone] Reason for Visit * Reason Comments Med Refill Encounter Details Date Type Department Care Team ([facility] st Contact Info) Description 09/26/2024 Refill [facility] MEDICINE 230 [place], [place] [phone] Sherry Ward MD 230 [place], [place] [phone] Dyslipidemia Social History Tobacco Use Types Packs/Day [...] hyperlipidemia documented in this encounter Care Teams Survey Crew Chief Relationship Specialty Start Date End Date Robe Parker PharmD [address] [place] [address] Pharmacist Internal Medicine 06/15/23 documented as of this encounter
--- OUTSIDE RECORDS SUMMARY | 2025-01-01 13:12 | XMS_ITS | Encounter Summary ---
Author Organization [employer] Address [address] [facility] 7t [place] [address] Care Team Providers Care Entry Tech Name Role Phone Sherry Ward MD Primary Care Provider [phone] Keith Robe PharmD Unavailable [phone] Encounter Details Date Type Department Care Team ([facility] st Contact Info) Description 11/02/2023 Orders Only [facility] MED[facility]INE 230 [place], [place] [phone] Sherry Ward MD 230 [place], [place] [phone] Social History Tobacco Use Types Packs/Day Years [...] on filedocumented in this encounter Care Teams Entry Tech Relationship Specialty Start Date End Date Sherry Ward MD [address] [place] [address] PCP - General Family Medicine 11/20/18 12/17/23 Robe Parker, PharmD [address] [place] [address] Pharmacist Internal Medicine 06/15/23 documented as of this encounter
--- OUTSIDE RECORDS SUMMARY | 2025-01-01 13:12 | XMS_ITS | Encounter Summary ---
Author Organization [employer] Address [address] [place] [address] 7t [place] [address] Care Team Providers Care [employer] Hazmat Tanker Driver Name Role Phone Sherry Ward MD Primary Care Provider [phone] Keith Robe PharmD Unavailable [phone] Encounter Details Date Type Department Care Team ([facility] st Contact Info) Description 01/23/2023 Orders Only [facility] MEDICINE 230 [place], [place] [phone] Nivia Serrato MD [address] [place] [address] Hyperkalemia (Primary Dx) Social History Tobacco Use [...] Hyperpotassemia documented in this encounter Care Teams Regional Company Hazmat Tanker Driver Relationship Specialty Start Date End Date Sherry Ward MD [address] [place], [place] [phone] PCP - General Family Medicine 11/20/18 12/17/23 Robe Parker, PharmD [address] [place] [address] Pharmacist Internal Medicine 06/15/23 documented as of this encounter
--- OUTSIDE RECORDS SUMMARY | 2025-01-01 13:12 | XMS_ITS | Encounter Summary ---
Author Organization [employer] Address [address] [facility] 7t [place] [address] Care Team Providers Care Human Resources Assistant Manager Name Role Phone Robe Parker PharmD Unavailable [phone] Reason for Visit * Reason Comments Med Refill Encounter Details Date Type Department Care Team ([facility] st Contact Info) Description 03/08/2024 Refill [facility] MEDICINE 230 [place], [place] [phone] Roopa Unger ANP 230 [place], [place] [phone] Social History Tobacco Use Types Packs/Day Years [...] on filedocumented in this encounter Care Teams Human Resources Assistant Manager Relationship Specialty Start Date End Date Robe Parker PharmD [address] [place] [address] Pharmacist Internal Medicine 06/15/23 documented as of this encounter
--- OUTSIDE RECORDS SUMMARY | 2025-01-01 13:12 | XMS_ITS | Encounter Summary ---
Author Organization [facility] Address [address] [place] [address] Phone Care Team Providers Care Treatment Technician Name Role Phone Joycelyn Brothers DO Primary Care Provider Unava ilable Encounter Details Date Type Department Care Team (Late st Contact Info) Description 11/08/2022 Telephone [facility] [address] [place] [address] Alex Garcia MD Social History [...] She also wants to add that his associate entertainment editor started him on digoxin 0.1 mg daily. Please advise Thank you CB# [phone] documented in this encounter Plan of Treatment Not on file documented as of this encounter Visit Diagnoses Not on filedocumented in this encounter Care Teams Treatment Technician Relationship Specialty Start Date End Date Joycelyn Brothers DO PCP - General 11/30/20 documented as of this encounter
--- OUTSIDE RECORDS SUMMARY | 2025-01-01 13:12 | XMS_ITS | Encounter Summary ---
Author Organization [employer] Address [address] [place] [address] 7t [place] [address] Care Team Providers Care Brush Material Preparer Name Role Phone Sherry Ward MD Primary Care Provider [phone] [place] Robe PharmD Unavailable [phone] Reason for Visit * Reason Onset Date Comments triage 11/25/2022 Encounter Details Date Type Department Care Team ([facility] st Contact Info) Description 11/25/2022 Telephone [facility] MEDICINE 230 [place], [place] [phone] Sherry Ward MD [address] [place], [place] [phone] triage Social History Tobacco Use Types Packs/Day [...] 11/25/2022 4:06 PM EST Triage call with [employer] [place] [id number] Pt reports son came over this morning to test with home test. Pt isn't sure if it is positive and is requesting medication. Pt reports has had Covid before . Pt is unable to come to [facility] today for further testing. Pt symptoms [...] on filedocumented in this encounter Care Teams Brush Material Preparer Relationship Specialty Start Date End Date Sherry Ward MD [address] [place] [address] PCP - General Family Medicine 11/20/18 12/17/23 Robe Parker PharmD [address] [place] [address] Pharmacist Internal Medicine 06/15/23 documented as of this encounter
--- OUTSIDE RECORDS SUMMARY | 2025-01-01 13:12 | XMS_ITS | Encounter Summary ---
Author Organization [employer] Address [address] [facility] 7t [place] [address] Care Team Providers Care Reflow Operator Name Role Phone Robe Parker PharmD Unavailable [phone] Reason for Visit * Reason Comments Med Refill Encounter Details Date Type Department Care Team ([facility] st Contact Info) Description 01/11/2024 Refill [facility] MED[facility] 230 [place], [place] [phone] Jaqui Chowdary MD 230 [place], [place] [phone] Social History Tobacco Use Types Packs/Day Years [...] on filedocumented in this encounter Care Teams Reflow Operator Relationship Specialty Start Date End Date Robe Parker, IrisD [address] [place] [address] Pharmacist Internal Medicine 06/15/23 documented as of this encounter
--- OUTSIDE RECORDS SUMMARY | 2025-01-01 13:12 | XMS_ITS | Encounter Summary ---
Author Organization [employer] Address [address] [facility] 7t [place] [address] Care Team Providers Care Automobile Mechanic Apprentice Name Role Phone Robe Parker PharmD Unavailable [phone] Reason for Visit * Reason Comments Med Refill Encounter Details Date Type Department Care Team ([facility] st Contact Info) Description 03/11/2024 Refill [facility] MEDICINE 230 [place], [place] [phone] Sherry Ward MD 230 [place], [place] [phone] Neuropathic pain Social History Tobacco Use Types [...] pain documented in this encounter Care Teams Automobile Mechanic Apprentice Relationship Specialty Start Date End Date Robe Parker, IrisD [address] [place] [phone] Pharmacist Internal Medicine 06/15/23 documented as of this encounter
--- OUTSIDE RECORDS SUMMARY | 2025-01-01 13:12 | XMS_ITS | Patient Health Record ---
Author Organization [facility] Address [address] [place] [address] Care Team Providers Care Sql Analyst Name Role Phone Joycelyn Brothers M.D. Primary Care Provider Jasson Adams Unavailable [phone] ALLERGIES Allergen (clinical drug ingredient) Drug/Non Drug Allergy documented on EMR Reaction Allergy Type Onset Date Status morphine Morphine Unknown Drug Allergy Active REASON FOR REFERRAL No Information MEDICATIONS Medication SIG (Take, Route, Frequency, Duration) Notes Start Date End Date Status Warfarin Sodium 5 MG 1 tablet Orally Onc e a day Active Gabapentin 100 MG 2 capsule Orally Onc e a day Active Metoprolol Tartrate 100 MG 1 tablet with food Orally once a day Active Vitamin D3 25 MCG (1000 UT) 1 capsule Or ally Once a day Active Atorvastatin Calcium 80 MG 1 tablet Oral ly Once a day Active Digoxin 125 MCG 1 tablet Orally Once a day Active Meclizine HCl 25 MG 1 tablet as needed O rally as needed Active IMMUNIZATIONS Vaccine Route Administration Date Status Comme nts Influenza Unknown 09/25/2018 Administered SOCIAL HISTORY Tobacco Use: Social History Observation Description Date Details (start date - stop date) Former Smoker NA - NA Sex Assigned At : Social History Observation Description Sex Assigned At Unknown Tobacco Use/Smoking Question Answer Notes Patient is a former smoker How long has it been since you last smoked? 1-3 months Alcohol Screen Question Answer Notes Did you have a drink containing alcohol in the p ast year? 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 [address] [place] [address] [id number] SEMAJ PATTERSON Self - patient is the insured MEDICAL (GENERAL) HISTORY Medical History History ICD Code Kidney disease-followed by Dr. Strong an HTN Denies [place],CVA,Lung disease Hyperlipidemia Rx'd for H.pylori in 06/2012 Kidney stones TIA 01/2018 Colonoscopy 11/2012--small tu bular adenomas removed, mild diverticulosis, small internal hemorrhoids EGD 11/2012--mild duodenitis and gastriti s--bx neg for H.pylori--small HH CAD--1 stent placed in 02/2018--Dr. 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 Hooks Diet-controlled diabetes Atrial fibrillation--on Coumadin since i n January of 2018 Colonoscopy 04/2019 with removal of small tubular adenomas Surgical History Surgery Date(Month/Year) Left eye surgery
--- OUTSIDE RECORDS SUMMARY | 2025-01-01 13:12 | XMS_ITS | Encounter Summary ---
Author Organization [facility] Address [address] [facility] [address] [place] [address] Phone Care Team Providers Care Pain Medicine Physician Name Role Phone Joycelyn Brothers DO Primary Care Provider Ema ilva Encounter Details Date Type Department Care Team (Late st Contact Info) Description 05/29/2021 Orders Only [facility] [address] [place] [phone] Alex Garcia MD Chronic kidney disease stage [...] (HCC) documented in this encounter Care Teams Pain Medicine Physician Relationship Specialty Start Date End Date Joycelyn Brothers DO PCP - General 11/30/20 documented as of this encounter
--- OUTSIDE RECORDS SUMMARY | 2025-01-01 13:12 | XMS_ITS | Clinical Summary ---
Author Organization [facility] Address [address] [facility] [address] [place] [address] Phone Care Team Providers Care Yarn Dumper Name Role Phone Joycelyn Brothers DO Primary [...] adenomatous polyp of colon 01/26/2024 Tinnitus 03/21/2023 residential current use of anticoagulant Overview (01/26/2024): Last Assessment & Plan: - indication: Atrial fibrilation - medication: warfarin - monitored by [facility] - most recent INR 1.6 [...] 04/02/2021 Overview (01/26/2024): Last Assessment & Plan: -Identification Technician: Dr. Roland, last seen in 12/27/21 -Baseline SCr 2.4-2.8; eGFR 22-26, CrCl 28.5 -Most recent lab: 08/05/22 K 5.2, BUN 46, SCr 2.48; eGFR 26 -Avoid nephrotoxic drugs/substances and behaviors, including NSAIDs use. -Renal dose medications. Tinea pedis 04/30/2018 Ischemic heart disease 04/30/2018 Overview (01/26/2024): Last Assessment & Plan: -Label Printer, Dr. Cain, seen on 11/10/22 -TIA in January 2018. Dx Afib. Started on Coumadin. -03/14/18 BRITTANY to distal RCA. Completed uninterrupted Plavix and Coumadin therapy for 1 year. Plan was to swithc Plavix to ASA. Pt is not on ASA or Plavix at this time because his CAD is stable per upholsterer assembly line. - Last echo in 12/28/21: Normal LV function, EF 55-60%. slight decrease from last echo. mild GERD reguigitation -Continue current medications History of placement of stent for coronary arter y disease 04/30/2018 Chronic atrial fibrillation 02/09/2018 Overview (01/26/2024): Last Assessment & Plan: A-fib today, rate controlled. pt is usually asymptomatic whether he is bradycardia and tachycardia -his upholsterer assembly line recommends rate control rather than rhythm control - Continue rate control with metoprolol tartrate 100 mg bid - Continue digoxin 125 mcg daily - Continue warfarin, which is monitored by [facility] -- Treatment Hx: --Previously on [...] Completed 03/21/2016, 06/18/2015, 04/14/2010 Insurance DUAL COMPLETE ([id number]) [place] [address] DUAL COMPLETE ([id number]) [place] [address] Care Teams Yarn Dumper Relationship Specialty Start Date End Date Joycelyn Brothers DO PCP - General 11/30/20
--- OUTSIDE RECORDS SUMMARY | 2025-01-01 13:12 | XMS_ITS | Encounter Summary ---
Author Organization [employer] Address [address] [place] [address] 7t [place] [address] Care Team Providers Care Bird Raiser Name Role Phone Sherry Ward MD Primary Care Provider [phone] Robe Parker PharmD Unavailable [phone] Reason for Referral * Imaging (Routine) - Closed Specialty Diagnoses / Procedures Referred By Contac t Referred To Contact Diagnoses Vertigo Ischemic heart disease Chronic atrial fibrillation (CMS/HCC) Essential hypertension Procedures Mr Brain w/ and w/o Contrast Sherry Ward MD [address] [place] [address] Phone: tel: fax: [facility] MRI and CT Scan [address] [place], [place] Phone: tel: fax: Referral ID Status Reason Start Date Expiration Date Visits Re quested Visits Authorized [id number] Closed 11/17/2022 11/17/2023 1 1 Encounter Details Date Type Department Care Team (Late st Contact Info) Description 11/08/2022 Orders Only [facility] MED[facility] [address] [place], [place] [phone] Sherry Ward MD [address] [place], [place] [phone] Vertigo (Primary Dx); Ischemic heart disease; Chronic [...] hypertension documented in this encounter Care Teams Bird Raiser Relationship Specialty Start Date End Date Sherry Ward MD [address] [place] [address] PCP - General Family Medicine 11/20/18 12/17/23 Robe Parker, IrisD [address] [place] [address] Pharmacist Internal Medicine 06/15/23 documented as of this encounter
--- OUTSIDE RECORDS SUMMARY | 2025-01-01 13:12 | XMS_ITS | Encounter Summary ---
Author Organization [employer] Address [address] [facility] 7t [place] [address] Care Team Providers Care Water Pollution Control Inspector Name Role Phone Rboe Parker PharmD Unavailable [phone] Reason for Visit * Reason Comments Med Refill Encounter Details Date Type Department Care Team ([facility] st Contact Info) Description 03/08/2024 Refill [facility] [address] [place], [place] [phone] Sherry Ward MD [address] [place], [place] [phone] Neuropathic pain Social History Tobacco Use Types [...] pain documented in this encounter Care Teams Water Pollution Control Inspector Relationship Specialty Start Date End Date Robe Parker, IrisD [address] [place] [address] Pharmacist Internal Medicine 06/15/23 documented as of this encounter
--- OUTSIDE RECORDS SUMMARY | 2025-01-01 13:12 | XMS_ITS | Encounter Summary ---
Author Organization [employer] Address [address] [facility] 7t [place] [address] Care Team Providers Care News Assignment Editor Name Role Phone Robe Parker PharmD Unavailable [phone] Reason for Visit * Reason Comments Med Refill Encounter Details Date Type Department Care Team ([facility] st Contact Info) Description 05/07/2024 Refill [facility] [address] [place], [place] [phone] Sherry Ward MD [address] [place], [place] [phone] Social History Tobacco Use Types Packs/Day Years [...] on filedocumented in this encounter Care Teams News Assignment Editor Relationship Specialty Start Date End Date Robe Parker, IrisD [address] [place] [address] Pharmacist Internal Medicine 06/15/23 documented as of this encounter
--- OUTSIDE RECORDS SUMMARY | 2025-01-01 13:12 | XMS_ITS | Encounter Summary ---
Author Organization [employer] Address [address] [facility] 7t [place] [address] Care Team Providers Care Incising Machine Operator Name Role Phone Sherry Ward MD Primary Care Provider [phone] Parker Robe PharmD Unavailable Reason for Visit * Reason Onset Date Comments Lab Request 01/16/2023 Patient walked i n requesting for lab examination to see potassium levels. Patient has been on kayexalate for a month already and would like to see how his levels are doing. Encounter Details Date Type Department Care Team (Late st Contact Info) Description 01/16/2023 Telephone [facility] [address] [place] [address] Sherry Ward MD [address] [place], [place] [phone] Lab Request (Patient walked in requesting for [...] he wants to get them [place] [facility] Informed we would have to change the [...] are doing. * Telephone Encounter - Cami iFore LPN - 01/16/2023 11:00 AM EST Critical [...] on filedocumented in this encounter Care Teams Incising Machine Operator Relationship Specialty Start Date End Date Sherry Ward MD [address] [place] [address] PCP - General Family Medicine 11/20/18 12/17/23 Robe Parker, PharmD [address] [place] [address] Pharmacist Internal Medicine 06/15/23 documented as of this encounter
== END 2025-01-01 11:31 | disposition home or self-care (01) ==
LOC: HO.ACS 11:17
PROVIDERS: PCP Physician Assistant; Visit Provider Internal Medicine
DX: Z79.01 Long term (current) use of anticoagulants (principal)

== ENCOUNTER → 2025-01-01 11:17 | Outpatient (BNVA) | payer OTHER, SELFPAY | PROVIDERS: PCP Physician Assistant; Visit Provider Internal Medicine | DX: I48.0 Paroxysmal atrial fibrillation (principal); Z79.01 Long term (current) use of anticoagulants; Z51.81 Encounter for therapeutic drug level monitoring | CPT/HCPCS: 85610; 99211 ==

== ENCOUNTER 2025-01-15 11:06 | Outpatient (AMB) | payer OTHER, SELFPAY ==
--- NOTE | 2025-01-15 11:11 | MHC.OFFVISCO ---
Intake Intake Visit Reasons: Anticoagulation Allergies lisinopril [LISINOPRIL] Allergy (Severe, Verified 01/15/25 11:06) ACUTE KIDNEY INJURY oxycodone [Percocet] Allergy (Intermediate, Verified 01/15/25 11:06) agitation codeine [CODEINE] Allergy (Unknown, Verified 01/15/25 11:06) AGITATION morphine [MORPHINE] Allergy (Unknown, Verified 01/15/25 11:06) AGITATION, confusion From PERCOCET Allergy (Unknown, Uncoded 01/15/25 11:06) AGITATION Medication List - Last Reconciled 01/15/25 by Lisa White RN amlodipine 2.5 mg PO DAILY atorvastatin 80 mg PO QAM cholecalciferol (vitamin D3) 25 mcg PO DAILY compression socks, large As directed febuxostat (Uloric) 40 mg PO DAILY fluticasone propionate 50 mcg/actuation 1 spray intranasal DAILY 30 days furosemide (Lasix) 40 mg PO QAM 90 days gabapentin 200 mg (2 x 100 mg) PO BEDTIME 30 days meclizine 25 mg PO TID PRN 30 days metoprolol tartrate 50 mg See Protocol PO BID 90 days prednisone 10 mg PO ONCE PRN simethicone 180 mg PO QID 30 days warfarin 7.5 mg See Protocol PO MO warfarin 5 mg See Protocol PO SUTUWETHFRSA Nursing Note INR 1.7-? out of therapeutic range 2-3 Medications and supplements reviewed Patient status: pt denies missed dose Medications or supplements: no changes Diet: appetite Denies any signs and symptoms of bleeding or clotting or unusual bruising Bleeding, bruising, clotting discussed Nutritional guidance given: no greens for 2 days, eat reds to raise Dose: 7.5mg today, then increase weekly dosing 7.5mg x2, 5mg x 5 F/U INR Date : 2 weeks?? Patient verbalizing understanding of instructions given. Anti-Coag Initial Assessment Social Hx Patient Tobacco Use Status: Former Tobacco user Tobacco use type: Cigarette alcohol intake: former Alcohol intake frequency: does not drink Coding Level of Care Code Est Patient Level 1 Diagnoses Current use of anticoagulant therapy Z79.01 Assessment & Plan Assessment & Plan (1) Current use of anticoagulant therapy: Code(s): Z79.01 - penitentiary (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
[2025-01-15 11:12] LABS: Prothrombin Time Whole Bld POC 20.8 sec (11.1-13.5); ~PT, ~INR - Anti Coag Clinic 1.7 (0.9-1.1)
--- OUTSIDE RECORDS SUMMARY | 2025-01-15 13:56 | XMS_ITS | Encounter Summary ---
Author Organization [employer] Address [address] [place] [address] 7t [place] [address] Care Team Providers Care Machine Iii Coremaker Name Role Phone Sherry Ward MD Primary Care Provider [phone] Parker Robe PharmD Unavailable [phone] Reason for Visit * Reason Onset Date Comments triage 11/25/2022 Encounter Details Date Type Department Care Team ([facility] st Contact Info) Description 11/25/2022 Telephone [facility] 230 [place], [place] [phone] Sherry Ward MD [address] [place], [place] [phone] triage Social History Tobacco Use Types Packs/Day [...] 11/25/2022 4:06 PM EST Triage call with [employer] Safety Leader ID [id number] Pt reports son came over this morning to test with home test. Pt isn't sure if it is positive and is requesting medication. Pt reports has had Covid before . Pt is unable to come to [facility] today for further testing. Pt symptoms are [...] on filedocumented in this encounter Care Teams Machine Iii Coremaker Relationship Specialty Start Date End Date Sherry Ward MD [address] [place] [address] PCP - General Family Medicine 11/20/18 12/17/23 Robe Parker PharmD [address] [place] [address] Pharmacist Internal Medicine 06/15/23 documented as of this encounter
--- OUTSIDE RECORDS SUMMARY | 2025-01-15 13:56 | XMS_ITS | Clinical Summary ---
Author Organization [facility] Address [address] [facility] [facility] [address] [address] [place] [address] Phone Care Team Providers Care Stitcher Feeder Name Role Phone Joycelyn Brothers DO Primary [...] adenomatous polyp of colon 01/26/2024 Tinnitus 03/21/2023 alf current use of anticoagulant Overview (01/26/2024): Last Assessment & Plan: - indication: Atrial fibrilation - medication: warfarin - monitored by [facility] - most recent INR 1.6 [...] 04/02/2021 Overview (01/26/2024): Last Assessment & Plan: -Slasher: Dr. Roland, last seen in 12/27/21 -Baseline SCr 2.4-2.8; eGFR 22-26, CrCl 28.5 -Most recent lab: 08/05/22 K 5.2, BUN 46, SCr 2.48; eGFR 26 -Avoid nephrotoxic drugs/substances and behaviors, including NSAIDs use. -Renal dose medications. Tinea pedis 04/30/2018 Ischemic heart disease 04/30/2018 Overview (01/26/2024): Last Assessment & Plan: -Jewel Oliving Machine Operator, Dr. Cain, seen on 11/10/22 -TIA in January 2018. Dx Afib. Started on Coumadin. -03/14/18 BRITTANY to distal RCA. Completed uninterrupted Plavix and Coumadin therapy for 1 year. Plan was to swithc Plavix to ASA. Pt is not on ASA or Plavix at this time because his CAD is stable per station examiner. - Last echo in 12/28/21: Normal LV function, EF 55-60%. slight decrease from last echo. mild GERD reguigitation -Continue current medications History of placement of stent for coronary arter y disease 04/30/2018 Chronic atrial fibrillation 02/09/2018 Overview (01/26/2024): Last Assessment & Plan: A-fib today, rate controlled. pt is usually asymptomatic whether he is bradycardia and tachycardia -his station examiner recommends rate control rather than rhythm control - Continue rate control with metoprolol tartrate 100 mg bid - Continue digoxin 125 mcg daily - Continue warfarin, which is monitored by [facility] -- Treatment Hx: --Previously on [...] Completed 03/21/2016, 06/18/2015, 04/14/2010 Insurance DUAL COMPLETE ([id number]) DUAL COMPLETE ([id number]) Care Teams Stitcher Feeder Relationship Specialty Start Date End Date Joycelyn Brothers DO PCP - General 11/30/20
--- OUTSIDE RECORDS SUMMARY | 2025-01-15 13:56 | XMS_ITS | Encounter Summary ---
Author Organization [employer] Address [address] [place] [address] 7t [place] [address] Care Team Providers Care Train Examiner Name Role Phone Sherry Ward MD Primary Care Provider [phone] Robe Parker PharmD Unavailable [phone] Encounter Details Date Type Department Care Team (Late st Contact Info) Description 11/04/2022 Orders Only [facility] MED[facility]INE 230 [place] [address] Sharon Ko, RN Social History Tobacco Use [...] on filedocumented in this encounter Care Teams Train Examiner Relationship Specialty Start Date End Date Sherry Ward MD [address] [place] [address] PCP - General Family Medicine 11/20/18 12/17/23 Robe Parker, PharmD [address] [place] [address], [place] [address] Pharmacist Internal Medicine 06/15/23 documented as of this encounter
--- OUTSIDE RECORDS SUMMARY | 2025-01-15 13:56 | XMS_ITS | Encounter Summary ---
Author Organization [employer] Address [address] [facility] 7t [place] [address] Care Team Providers Care Laminating Machine Offbearer Name Role Phone Sherry Ward MD Primary Care Provider [phone] Parker Robe PharmD Unavailable Reason for Visit * Reason Onset Date Comments Lab Request 01/16/2023 Patient walked i n requesting for lab examination to see potassium levels. Patient has been on kayexalate for a month already and would like to see how his levels are doing. Encounter Details Date Type Department Care Team (Late st Contact Info) Description 01/16/2023 Telephone [facility]INE 230 [place] [address] Sherry Ward MD [address] [place], [place] [phone] Lab Request (Patient walked in requesting for [...] on filedocumented in this encounter Care Teams Laminating Machine Offbearer Relationship Specialty Start Date End Date Sherry Ward MD [address] [place] [address] PCP - General Family Medicine 11/20/18 12/17/23 Robe Parker, PharmD [address] [place] [address] Pharmacist Internal Medicine 06/15/23 documented as of this encounter
--- OUTSIDE RECORDS SUMMARY | 2025-01-15 13:56 | XMS_ITS | Encounter Summary ---
Author Organization [employer] Address [address] [place] [address] 7t [place] [address] Care Team Providers Care Explosive Operator Bomb Name Role Phone Sherry Ward MD Primary Care Provider [phone] Keith Robe PharmD Unavailable [phone] Encounter Details Date Type Department Care Team ([facility] st Contact Info) Description 01/23/2023 Orders Only [facility] MED[facility]INE 230 [place], [place] [phone] Nivia Serrato MD [address] [place] [address] Hyperkalemia (Primary Dx) Social History Tobacco Use [...] Hyperpotassemia documented in this encounter Care Teams Explosive Operator Bomb Relationship Specialty Start Date End Date Sherry Ward MD [address] [place], [place] [phone] PCP - General Family Medicine 11/20/18 12/17/23 Robe Parker, PharmD [address] [place] [address] Pharmacist Internal Medicine 06/15/23 documented as of this encounter
--- OUTSIDE RECORDS SUMMARY | 2025-01-15 13:56 | XMS_ITS | Patient Health Record ---
Author Organization [facility] Address [address] [place] [address] Care Team Providers Care Sugar Grinder Name Role Phone Joycelyn Brothers M.D. 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 [address] [place] [address] [id number] SEMAJ PATTERSON Self - patient is the insured MEDICAL (GENERAL) HISTORY Medical History History ICD Code Kidney disease-followed by Dr. Strong an HTN Denies MD,CVA,Lung disease Hyperlipidemia Rx'd for H.pylori in 06/2012 [...]
--- OUTSIDE RECORDS SUMMARY | 2025-01-15 13:56 | XMS_ITS | Encounter Summary ---
Author Organization [facility] Address [address] [place] [address] Phone Care Team Providers Care Pool Finisher Name Role Phone Joycelyn Brothers DO Primary Care Provider Unava ilable Encounter Details Date Type Department Care Team (Late st Contact Info) Description 11/08/2022 Telephone [facility] [address] [place] [address] Alex Garcia MD Social History [...] She also wants to add that his manufacturing production technician started him on digoxin 0.1 mg daily. Please advise Thank you CB# [phone] documented in this encounter Plan of Treatment Not on file documented as of this encounter Visit Diagnoses Not on filedocumented in this encounter Care Teams Pool Finisher Relationship Specialty Start Date End Date Joycelyn Brothers DO PCP - General 11/30/20 documented as of this encounter
--- OUTSIDE RECORDS SUMMARY | 2025-01-15 13:56 | XMS_ITS | Encounter Summary ---
Author Organization [employer] Address [address] [place] [address] 7t [place] [address] Care Team Providers Care Conductor Pullman Name Role Phone Sherry Ward MD Primary Care Provider [phone] Robe Parker PharmD Unavailable [phone] Reason for Referral * Imaging (Routine) - Closed Specialty Diagnoses / Procedures Referred By Contac t Referred To Contact Diagnoses Vertigo Ischemic heart disease Chronic atrial fibrillation (CMS/HCC) Essential hypertension Procedures Mr Brain w/ and w/o Contrast Sherry Ward MD [address] [place] [address] Phone: tel: fax: [facility] [place] and [facility] Scan [address] [place], [place] Phone: tel: fax: Referral ID Status Reason Start Date Expiration Date Visits Re quested Visits Authorized [id number] Closed 11/17/2022 11/17/2023 1 1 Encounter Details Date Type Department Care Team (Late st Contact Info) Description 11/08/2022 Orders Only [facility] MED[facility]INE 230 [place], [place] [phone] Sherry Ward MD [address] [place], [place] [phone] Vertigo (Primary Dx); Ischemic heart disease; Chronic [...] hypertension documented in this encounter Care Teams Conductor Pullman Relationship Specialty Start Date End Date Sherry Ward MD [address] [place] [address] PCP - General Family Medicine 11/20/18 12/17/23 Robe Parker, IrisD [address] [place] [address] Pharmacist Internal Medicine 06/15/23 documented as of this encounter
--- OUTSIDE RECORDS SUMMARY | 2025-01-15 13:56 | XMS_ITS | Encounter Summary ---
Author Organization [facility] Address [address] [facility] [address] [place] [address] Phone Care Team Providers Care Fur Machine Operator Name Role Phone Joycelyn Brothers DO Primary Care Provider Ema ilav Encounter Details Date Type Department Care Team (Late st Contact Info) Description 05/29/2021 Orders Only [facility] [address] [place] [address] [place] [phone] Alex Garcia MD Chronic kidney disease stage [...] (HCC) documented in this encounter Care Teams Fur Machine Operator Relationship Specialty Start Date End Date Joycelyn Brothers DO PCP - General 11/30/20 documented as of this encounter
--- OUTSIDE RECORDS SUMMARY | 2025-01-15 13:56 | XMS_ITS | Encounter Summary ---
Author Organization [employer] Address 75 [facility] 7t [place] [address] Care Team Providers Care Drill Press Operator Helper Name Role Phone Sherry Ward MD Primary Care Provider [phone] Keith Robe PharmD Unavailable [phone] Encounter Details Date Type Department Care Team ([facility] st Contact Info) Description 11/02/2023 Orders Only [facility] MEDICINE 230 [place], [place] [phone] Sherry Ward MD 230 [place], [place] [phone] Social History Tobacco Use Types Packs/Day Years [...] on filedocumented in this encounter Care Teams Drill Press Operator Helper Relationship Specialty Start Date End Date Sherry Ward MD 230 [place] [address] PCP - General Family Medicine 11/20/18 12/17/23 Robe Parker, PharmD 230 [place] [address] Pharmacist Internal Medicine 06/15/23 documented as of this encounter
--- OUTSIDE RECORDS SUMMARY | 2025-01-15 13:56 | XMS_ITS | Encounter Summary ---
Author Organization [employer] Address 75 [facility] 7t [place] [address] Care Team Providers Care Superintendent Schools Name Role Phone Sherry Ward MD Primary Care Provider [phone] Keith Robe PharmD Unavailable [phone] Encounter Details Date Type Department Care Team (Late st Contact Info) Description 11/02/2023 Orders Only [facility] MEDICINE 230 [place], [place] [phone] Sherry Ward MD 230 [place], [place] [phone] Left foot pain (Primary Dx) Social History [...] limb documented in this encounter Care Teams Superintendent Schools Relationship Specialty Start Date End Date Sherry Ward MD 230 [place] [address] PCP - General Family Medicine 11/20/18 12/17/23 Robe Parker, IrisD [address] [place] [address] Pharmacist Internal Medicine 06/15/23 documented as of this encounter
--- OUTSIDE RECORDS SUMMARY | 2025-01-15 13:56 | XMS_ITS | Encounter Summary ---
Author Organization [employer] Address [address] [place] [address] 7t [place] [address] Care Team Providers Care Cdl Team Truck Driver Name Role Phone Sherry Ward MD Primary Care Provider [phone] Robe Parker PharmD Unavailable [phone] Reason for Visit * Reason Onset Date Comments Anticoagulation 12/21/2022 Encounter Details Date Type Department Care Team ([facility] st Contact Info) Description 12/21/2022 Telephone [facility] MEDICINE 230 [place], [place] [phone] Sherry Ward MD 230 [place], [place] [phone] Anticoagulation Social History Tobacco Use Types Packs/Day [...] call received at this time. Katy at [facility] reports today that Pt. INR is 1.4 Warfarin dose today 7.5mg 5mg abd Monday 2.5 mg Monday and 5mg Monday Recheck Monday. Please call Katy CURRAN if needed. documented in this encounter Plan of Treatment Not on file documented as of this encounter Visit Diagnoses Not on filedocumented in this encounter Care Teams Cdl Team Truck Driver Relationship Specialty Start Date End Date Sherry Ward MD [address] [place] [address] PCP - General Family Medicine 11/20/18 12/17/23 Robe Parker, PharmD [address] [place] [address] Pharmacist Internal Medicine 06/15/23 documented as of this encounter
--- OUTSIDE RECORDS SUMMARY | 2025-01-15 13:57 | XMS_ITS | Clinical Summary ---
Author Organization [employer] Address [address] [place] [address] 7t [place] [address] Care Team Providers Care Head Of Design Name Role Phone Robe Parker PharmD Unavailable [phone] Allergies Active Allergy Reactions Criticality Noted Date [...] 1 3 Active Lancets (OneTouch Delica Plus [id number]) [facility] Check blood sugar once daily 100 each 11 3 Active Blood Glucose Monitoring Suppl (ONE TOUCH ULTRA 2) w/Device kitIndications:T ype 2 diabetes mellitus with stage 4 chronic kidney disease, without long-term current use of insulin ([facility]) 1 kit Once daily. 1 kit 3 [...] taking febuxostat 40 mg daily prescribed by roller shop utility worker - continue febuxostat 40 mg daily - [...] fibrilation - medication: warfarin - monitored by [facility] - most recent INR 2.2 on 10/20/23 - continue current treatment plan Assessment & Plan (03/21/2023 11:52 AM EDT): - indication: Atrial fibrilation - medication: warfarin - monitored by [facility] - most recent INR 1.6 [...] Assessment & Plan (11/05/2023 4:30 PM EST): -Bath Steward: Dr. Roland, last seen in Sep 2023 -Baseline SCr 2.0-2.4; eGFR 27-32, K 4.9-5.4 -Avoid nephrotoxic drugs/substances and behaviors, including NSAIDs use. -Renal dose medications. Assessment & Plan (03/13/2023 1:36 PM EDT): -Bath Steward: Dr. Roland, last seen in 12/27/21 -Baseline SCr 2.4-2.8; eGFR 22-26, CrCl 28.5 -Most recent lab: 08/05/22 K 5.2, BUN 46, SCr 2.48; eGFR 26 -Avoid nephrotoxic drugs/substances and behaviors, including NSAIDs use. -Renal dose medications. Assessment & Plan (12/19/2022 1:28 PM EST): -Bath Steward: Dr. Roland, last seen in 12/27/21 -Baseline SCr 2.4-2.8; eGFR 22-26, CrCl 28.5 -Most recent lab: 08/05/22 K 5.2, BUN 46, SCr 2.48; eGFR 26 -Avoid nephrotoxic drugs/substances and behaviors, including NSAIDs use. -Renal dose medications. Assessment & Plan (11/07/2022 4:55 AM EST): -Bath Steward: Dr. Roland, last seen in 12/27/21 -Baseline SCr 2.4-2.8; eGFR 22-26, CrCl 28.5 -Most recent lab: 08/05/22 K 5.2, BUN 46, SCr 2.48; eGFR 26 -Avoid nephrotoxic drugs/substances and behaviors, including NSAIDs use. -Renal dose medications. Chronic interstitial nephritis 04/02/2021 Proteinuria 04/02/2021 Ischemic heart disease 04/30/2018 Assessment & Plan (11/05/2023 4:06 PM EST): -Tie Maker, Dr. Cain, seen in April 2023 -TIA [...] Assessment & Plan (03/13/2023 1:29 PM EDT): -Tie Maker, Dr. Cain, seen on 11/10/22 -TIA in January 2018. Dx Afib. Started on Coumadin. -03/14/18 BRITTANY to distal RCA. Completed uninterrupted Plavix and Coumadin therapy for 1 year. Plan was to swithc Plavix to ASA. Pt is not on ASA or Plavix at this time because his CAD is stable per systems software engineer. - Last echo in 12/28/21: Normal LV function, EF 55-60%. slight decrease from last echo. mild GERD reguigitation -Continue current medications Assessment & Plan (12/25/2022 7:27 AM EST): -Tie Maker, Dr. Cain, seen on 11/10/22 -TIA in January 2018. Dx Afib. Started on Coumadin. -03/14/18 BRITTANY to distal RCA. Completed uninterrupted Plavix and Coumadin therapy for 1 year. Plan was to swithc Plavix to ASA. Pt is not on ASA or Plavix at this time because his CAD is stable per systems software engineer. - Last echo in 12/28/21: Normal LV function, EF 55-60%. slight decrease from last echo. mild GERD reguigitation -Continue current medications Assessment & Plan (11/07/2022 5:02 AM EST): -Tie Maker, Dr. Cain, seen on 05/19/22 -TIA in January 2018. Dx Afib. Started on Coumadin. -03/14/18 BRITTANY to distal RCA. Completed uninterrupted Plavix and Coumadin therapy for 1 year. Plan was to swithc Plavix to ASA. Pt is not on ASA or Plavix at this time because his CAD is stable per systems software engineer. - Last echo in 12/28/21: Normal LV [...] whether he is bradycardia and tachycardia -his systems software engineer recommends rate control rather than rhythm control - Continue rate control with metoprolol tartrate 100 mg bid - Continue digoxin 125 mcg daily - Continue warfarin, which is monitored by [facility]tico[facility] -- Treatment Hx: --Previously on [...] whether he is bradycardia and tachycardia -his systems software engineer recommends rate control rather than rhythm control - Continue rate control with metoprolol tartrate 100 mg bid - Continue digoxin 125 mcg daily - Continue warfarin, which is monitored by [facility] Antico[facility] -- Treatment Hx: --Previously on [...] wheter he is bradycardiac and tachycardiac -his systems software engineer recommends rate control rather than rhythm control - Continue rate control with metoprolol tartrate 100 mg bid - Continue digoxin 125 mcg daily - Continue warfarin, which is monitored by [facility] Anticoagulation clinic -- Treatment Hx: --Previously on [...] microalbuminuria due to type 2 diabetes mellitus ([facility]) 12/25/2014 Type 2 diabetes mellitus 12/25/2014 Assessment [...] Logan -Pt requests to be referred to [facility] where his son goes Assessment & [...] wheter he is bradycardiac and tachycardiac -his systems software engineer recommends rate control rather than rhythm control [...] decreased -Continue Coumadin, which is monitored by [facility] anticoagulation clinic. -Holter monitor on 04/13/22 showed average HR 61 bpm, sinus. A-fib 36%. -Holter monitor on 09/08/22 showed average HR 101 bpm, baseline A-fib, HR > 100 for 67% period -Pt states he has been taking digoxin. Will confirm it with systems software engineer. Mild intermittent asthma 09/01/201503/2023 Immunizations Name Administration [...] disease, without long-term current use of insulin ([facility]) HM COLONOSCOPY Routine 04/22/2019 from Last 3 Months or Most Recently Relevant to Health Maintenance Results * (ABNORMAL) Lipid Panel with Reflex to Direct LDL (10/30/2023 2:57 PM EST) Triglycerides 433(H) <150 mg/dL [facility] Comment:Desirable Triglyceri de: less than 150 mg/dLBorderline High Triglyceride 150-199 mg/dLHigh Triglyceride: 200-499 mg/dLVery High Triglyceride: greater than or equal to 5OO mg/dL Cholesterol 266(H) <200 mg/dL [facility] Comment:Desirable Cholestero l: less than 200 mg/dLBorderline High Cholesterol: 200-239 mg/dLHigh Cholesterol: greater than 239 mg/dL LDL Cholesterol Calculated TNP <100 mg/dL [facility] Comment:Unable to calculate the LDL. The formula of Friedwald,Olsen, and Stefanie is only valid if the triglycerides areless than 400 mg/dl. HDL Cholesterol 28(L) >40 mg/dL [facility] Comment:Desirable HDL: great er than 40 mg/dL Note: This HDL assay may give artificially low results in patients with liver disease. Blood 10/30/2023 2:57 PM EST 10/30/2023 3:58 PM EST Sherry Ward MD LAB BLOOD ORDERABLES Final Resul t [facility] [address] [place] [phone] * (ABNORMAL) POCT glycosylated hemoglobin (Hgb A1c) (10/30/2023 2:23 PM EST) Hemoglobin A1C 7.1(A) 4.0 - 6.0 % QC Media Lot # [id number] Lot# Expiration Date Blood Capillary blood specimen / Unknown 10/30/2023 2:23 PM EST Sherry Ward MD POINT OF CARE TEST ENTER/EDIT OR DERABLES Final Result * Hm Colonoscopy (04/22/2019) [facility] Colonoscopy Normal Normal us Historical Provider MD HEALTH MAINTENANCE Final Result from Last 3 Months or Most Recently Relevant to Health Maintenance Insurance [facility] STANDARD Care Teams Head Of Design Relationship Specialty Start Date End Date Robe Parker PharmD [address] [place] [phone] Pharmacist Internal Medicine 06/15/23
--- OUTSIDE RECORDS SUMMARY | 2025-01-15 13:57 | XMS_ITS | Encounter Summary ---
Author Organization [employer] Address 75 [facility] 7t [place] [address] Care Team Providers Care Customer Success Director Name Role Phone Robe Parker PharmD Unavailable Reason for Visit * Reason Comments Med Refill Encounter Details Date Type Department Care Team ([facility] st Contact Info) Description 03/08/2024 Refill [facility] MEDICINE 230 [place], [place] [phone] Roopa Unger ANP 230 [place], [place] [phone] Social History Tobacco Use Types Packs/Day Years [...] on filedocumented in this encounter Care Teams Customer Success Director Relationship Specialty Start Date End Date Robe Parker PharmD [address] [place] [address] Pharmacist Internal Medicine 06/15/23 documented as of this encounter
--- OUTSIDE RECORDS SUMMARY | 2025-01-15 13:57 | XMS_ITS | Encounter Summary ---
Author Organization [employer] Address 75 [facility] 7t [place] [address] Care Team Providers Care Want Ad Receiver Name Role Phone Robe Parker PharmD Unavailable [phone] Reason for Visit * Reason Comments Med Refill Encounter Details Date Type Department Care Team ([facility] st Contact Info) Description 08/05/[address] [facility] MEDICINE 230 [place], [place] [phone] Sherry Ward MD 230 [place], [place] [phone] Social History Tobacco Use Types Packs/Day Years [...] on filedocumented in this encounter Care Teams Want Ad Receiver Relationship Specialty Start Date End Date Robe Parker, IrisD [address] [place] [address] Pharmacist Internal Medicine 06/15/23 documented as of this encounter
--- OUTSIDE RECORDS SUMMARY | 2025-01-15 13:57 | XMS_ITS | Encounter Summary ---
Author Organization [employer] Address 75 [facility] 7t [place] [address] Care Team Providers Care Forensic Locksmith Name Role Phone Robe Parker PharmD Unavailable [phone] Reason for Visit * Reason Comments Med Refill Encounter Details Date Type Department Care Team ([facility] st Contact Info) Description 03/11/2024 Refill [facility] MEDICINE 230 [place], [place] [phone] Sherry Ward MD 230 [place], [place] [phone] Neuropathic pain Social History Tobacco Use Types [...] pain documented in this encounter Care Teams Forensic Locksmith Relationship Specialty Start Date End Date Robe Parker, IrisD [address] [place] [address] Pharmacist Internal Medicine 06/15/23 documented as of this encounter
--- OUTSIDE RECORDS SUMMARY | 2025-01-15 13:57 | XMS_ITS | Encounter Summary ---
Author Organization [employer] Address 75 [facility] 7t [place] [address] Care Team Providers Care Application Project Leader Name Role Phone Robe Parker PharmD Unavailable [phone] Reason for Visit * Reason Comments Med Refill Encounter Details Date Type Department Care Team ([facility] st Contact Info) Description 09/26/[address] [facility] MEDICINE 230 [place], [place] [phone] Sherry Ward MD 230 [place], [place] [phone] Dyslipidemia Social History Tobacco Use Types Packs/Day [...] hyperlipidemia documented in this encounter Care Teams Application Project Leader Relationship Specialty Start Date End Date Robe Parker PharmD 230 [place] [address] Pharmacist Internal Medicine 06/15/23 documented as of this encounter
--- OUTSIDE RECORDS SUMMARY | 2025-01-15 13:57 | XMS_ITS | Encounter Summary ---
Author Organization [employer] Address 75 [facility] 7t [place] [address] Care Team Providers Care Second Language Tutor Name Role Phone Robe Parker PharmD Unavailable [phone] Reason for Visit * Reason Comments Med Refill Encounter Details Date Type Department Care Team ([facility] st Contact Info) Description 03/08/2024 Refill [facility] MEDICINE 230 [place], [place] [phone] Sherry Ward MD 230 [place], [place] [phone] Neuropathic pain Social History Tobacco Use Types [...] pain documented in this encounter Care Teams Second Language Tutor Relationship Specialty Start Date End Date Robe Parker, IrisD [address] [place] [address] Pharmacist Internal Medicine 06/15/23 documented as of this encounter
--- OUTSIDE RECORDS SUMMARY | 2025-01-15 13:57 | XMS_ITS | Encounter Summary ---
Author Organization [employer] Address 75 [facility] 7t [place] [address] Care Team Providers Care Cheesemaking Laborer Name Role Phone Robe Parker PharmD Unavailable [phone] Reason for Visit * Reason Comments Med Refill Encounter Details Date Type Department Care Team ([facility] st Contact Info) Description 05/07/[address] [facility] MEDICINE 230 [place], [place] [phone] Sherry Ward MD 230 [place], [place] [phone] Social History Tobacco Use Types Packs/Day Years [...] on filedocumented in this encounter Care Teams Cheesemaking Laborer Relationship Specialty Start Date End Date Robe Parker, IrisD [address] [place] [address] Pharmacist Internal Medicine 06/15/23 documented as of this encounter
--- OUTSIDE RECORDS SUMMARY | 2025-01-15 13:57 | XMS_ITS | Encounter Summary ---
Author Organization [employer] Address 75 [facility] 7t [place] [address] Care Team Providers Care Varnishing Unit Tool Setter Name Role Phone Robe Parker PharmD Unavailable [phone] Reason for Visit * Reason Comments Med Refill Encounter Details Date Type Department Care Team ([facility] st Contact Info) Description 01/11/2024 Refill [facility] MEDICINE 230 [place], [place] [phone] Jaqui Chowdary MD 230 [place], [place] [phone] Social History Tobacco Use Types Packs/Day Years [...] on filedocumented in this encounter Care Teams Varnishing Unit Tool Setter Relationship Specialty Start Date End Date Robe Parker, IrisD [address] [place] [address] Pharmacist Internal Medicine 06/15/23 documented as of this encounter
== END 2025-01-15 11:20 | disposition home or self-care (01) ==
LOC: HO.ACS 11:06
PROVIDERS: PCP Physician Assistant; Visit Provider Internal Medicine
DX: Z79.01 Long term (current) use of anticoagulants (principal)

== ENCOUNTER → 2025-01-15 11:06 | Outpatient (BNVA) | payer OTHER, SELFPAY | PROVIDERS: PCP Physician Assistant; Visit Provider Internal Medicine | DX: I48.0 Paroxysmal atrial fibrillation (principal); Z79.01 Long term (current) use of anticoagulants; Z51.81 Encounter for therapeutic drug level monitoring | CPT/HCPCS: 85610; 99211 ==

== ENCOUNTER 2025-01-29 11:07 | Outpatient (AMB) | payer OTHER, SELFPAY ==
[2025-01-29 11:26] LABS: Prothrombin Time Whole Bld POC 33.8 sec (11.1-13.5); ~PT, ~INR - Anti Coag Clinic 2.8 (0.9-1.1)
--- NOTE | 2025-01-29 11:26 | MHC.OFFVISCO ---
Intake Intake Visit Reasons: Anticoagulation Allergies lisinopril [LISINOPRIL] Allergy (Severe, Verified 01/29/25 11:21) ACUTE KIDNEY INJURY oxycodone [Percocet] Allergy (Intermediate, Verified 01/29/25 11:21) agitation codeine [CODEINE] Allergy (Unknown, Verified 01/29/25 11:21) AGITATION morphine [MORPHINE] Allergy (Unknown, Verified 01/29/25 11:21) AGITATION, confusion From PERCOCET Allergy (Unknown, Uncoded 01/29/25 11:21) AGITATION Medication List - Last Reconciled 01/29/25 by Lisa White RN amlodipine 2.5 mg PO DAILY atorvastatin 80 mg PO QAM cholecalciferol (vitamin D3) 25 mcg PO DAILY compression socks, large As directed febuxostat (Uloric) 40 mg PO DAILY fluticasone propionate 50 mcg/actuation 1 spray intranasal DAILY 30 days furosemide (Lasix) 40 mg PO QAM 90 days gabapentin 200 mg (2 x 100 mg) PO BEDTIME 30 days meclizine 25 mg PO TID PRN 30 days metoprolol tartrate 50 mg See Protocol PO BID 90 days prednisone 10 mg PO ONCE PRN simethicone 180 mg PO QID 30 days warfarin 7.5 mg See Protocol PO MO warfarin 5 mg See Protocol PO SUTUWETHFRSA Nursing Note INR: 2.8- in therapeutic range of 2-3 Medications and supplements reviewed- no changes No changes in health, diet, medications, or supplements, Denies any signs and symptoms of bleeding or bruising or clotting. Bleeding, bruising, clotting discussed Nutritional guidance given Dose: 7.5mg x 2, 5mg x 5 F/U INR: 2 weeks Patient verbalizes understanding of instructions given pt to acs acompanied by aleah LlamasCoazen Initial Assessment Social Hx Patient Tobacco Use Status: Former Tobacco user Tobacco use type: Cigarette alcohol intake: former Alcohol intake frequency: does not drink Coding Level of Care Code Est Patient Level 1 Diagnoses Current use of anticoagulant therapy Z79.01 Assessment & Plan Assessment & Plan (1) Current use of anticoagulant therapy: Code(s): Z79.01 - intermodal customer service (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
--- OUTSIDE RECORDS SUMMARY | 2025-01-29 13:06 | XMS_ITS | Encounter Summary ---
Author Organization [facility] Address [address] [place] [address] Phone Care Team Providers Care Lan Support Specialist Name Role Phone Joycelyn Brothers DO Primary Care Provider Unava ilable Encounter Details Date Type Department Care Team (Late st Contact Info) Description 11/08/2022 Telephone [facility] [address] [place] [address] Alex Garcia MD Social History [...] She also wants to add that his market research coordinator started him on digoxin 0.1 mg daily. Please advise Thank you CB# [phone] documented in this encounter Plan of Treatment Not on file documented as of this encounter Visit Diagnoses Not on filedocumented in this encounter Care Teams Lan Support Specialist Relationship Specialty Start Date End Date Joycelyn Brothers DO PCP - General 11/30/20 documented as of this encounter
--- OUTSIDE RECORDS SUMMARY | 2025-01-29 13:06 | XMS_ITS | Encounter Summary ---
Author Organization [employer] Address [address] [place] [address] 7t [place] [address] Care Team Providers Care Manager Bar Name Role Phone Sherry Ward MD Primary Care Provider [phone] Robe Parker PharmD Unavailable [phone] Reason for Visit * Reason Onset Date Comments Anticoagulation 12/21/2022 Encounter Details Date Type Department Care Team ([facility] st Contact Info) Description 12/21/2022 Telephone [facility] MEDICINE 230 [place], [place] [phone] Sherry Ward MD 230 [place], [place] [phone] Anticoagulation Social History Tobacco Use Types Packs/Day [...] call received at this time. [place] [facility] [place] that Pt. INR is 1.4 Warfarin dose today 7.5mg 5mg abd Monday 2.5 mg Monday and 5mg Monday Recheck Monday. Please call Katy CURRAN if needed. documented in this encounter Plan of Treatment Not on file documented as of this encounter Visit Diagnoses Not on filedocumented in this encounter Care Teams Manager Bar Relationship Specialty Start Date End Date Sherry Ward MD [address] [place] [address] PCP - General Family Medicine 11/20/18 12/17/23 Robe Parker, PharmD [address] [place] [address] Pharmacist Internal Medicine 06/15/23 documented as of this encounter
--- OUTSIDE RECORDS SUMMARY | 2025-01-29 13:06 | XMS_ITS | Encounter Summary ---
Author Organization [employer] Address [address] [place] [address] 7t [place] [address] Care Team Providers Care Bi Architect Name Role Phone Sherry Ward MD Primary Care Provider [phone] Keith Robe PharmD Unavailable [phone] Encounter Details Date Type Department Care Team ([facility] st Contact Info) Description 01/23/2023 Orders Only [facility] MEDICINE 230 [place], [place] [phone] Nivia Serrato MD 230 [place] [address] Hyperkalemia (Primary Dx) Social History Tobacco Use [...] Hyperpotassemia documented in this encounter Care Teams Bi Architect Relationship Specialty Start Date End Date Sherry Ward MD [address] [place], [place] [phone] PCP - General Family Medicine 11/20/18 12/17/23 Robe Parker, PharmD [address] [place] [address] Pharmacist Internal Medicine 06/15/23 documented as of this encounter
--- OUTSIDE RECORDS SUMMARY | 2025-01-29 13:06 | XMS_ITS | Clinical Summary ---
Author Organization [facility] Address [address] [facility] [address] [place] [address] Phone Care Team Providers Care Drawer Upfitter Name Role Phone Joycelyn Brothers DO Primary [...] adenomatous polyp of colon 01/26/2024 Tinnitus 03/21/2023 prison current use of anticoagulant Overview (01/26/2024): Last Assessment & Plan: - indication: Atrial fibrilation - medication: warfarin - [facility] by [facility] - most recent [...] 04/02/2021 Overview (01/26/2024): Last Assessment & Plan: -Packing Machine Operator: Dr. Roland, last seen in 12/27/21 -Baseline SCr 2.4-2.8; eGFR 22-26, CrCl 28.5 -Most recent lab: 08/05/22 K 5.2, BUN 46, SCr 2.48; eGFR 26 -Avoid nephrotoxic drugs/substances and behaviors, including NSAIDs use. -Renal dose medications. Tinea pedis 04/30/2018 Ischemic heart disease 04/30/2018 Overview (01/26/2024): Last Assessment & Plan: -Lapel Baster, Dr. Cain, seen on 11/10/22 -TIA in January 2018. Dx Afib. Started on Coumadin. -03/14/18 BRITTANY to distal RCA. Completed uninterrupted Plavix and Coumadin therapy for 1 year. Plan was to swithc Plavix to ASA. Pt is not on ASA or Plavix at this time because his CAD is stable per supervisor electronics inspection. - Last echo in 12/28/21: Normal LV function, EF 55-60%. slight decrease from last echo. mild GERD reguigitation -Continue current medications History of placement of stent for coronary arter y disease 04/30/2018 Chronic atrial fibrillation 02/09/2018 Overview (01/26/2024): Last Assessment & Plan: A-fib today, rate controlled. pt is usually asymptomatic whether he is bradycardia and tachycardia -his supervisor electronics inspection recommends rate control rather than rhythm control - Continue rate control with metoprolol tartrate 100 mg bid - Continue digoxin 125 mcg daily - Continue warfarin, which is monitored by [facility] -- Treatment Hx: [...] Completed 03/21/2016, 06/18/2015, 04/14/2010 Insurance DUAL COMPLETE ([id number]) DUAL COMPLETE ([id number]) Care Teams Drawer Upfitter Relationship Specialty Start Date End Date Joycelyn Brothers DO PCP - General 11/30/20
--- OUTSIDE RECORDS SUMMARY | 2025-01-29 13:06 | XMS_ITS | Encounter Summary ---
Author Organization [employer] Address [address] [facility] 7t [place] [address] Care Team Providers Care Registrar Assistant Name Role Phone Sherry Ward MD Primary Care Provider [phone] Keith Robe PharmD Unavailable [phone] Encounter Details Date Type Department Care Team ([facility] st Contact Info) Description 11/02/2023 Orders Only [facility] MEDICINE [address] [place], [place] [phone] Sherry Ward MD 230 [place], [place] [phone] Social History Tobacco Use Types Packs/Day Years [...] on filedocumented in this encounter Care Teams Registrar Assistant Relationship Specialty Start Date End Date Sherry Ward MD [address] [place] [address] PCP - General Family Medicine 11/20/18 12/17/23 Robe Parker, PharmD 230 [place] [address] Pharmacist Internal Medicine 06/15/23 documented as of this encounter
--- OUTSIDE RECORDS SUMMARY | 2025-01-29 13:06 | XMS_ITS | Encounter Summary ---
Author Organization [employer] Address [address] [facility] 7t [place] [address] Care Team Providers Care Objective C Developer Name Role Phone Robe Parker PharmD Unavailable Reason for Visit * Reason Comments Med Refill Encounter Details Date Type Department Care Team ([facility] st Contact Info) Description 08/05/2024 Refill [facility] MEDICINE 230 [place], [place] [phone] Sherry Ward MD 230 [place], [place] [phone] Social History Tobacco Use Types Packs/Day Years [...] on filedocumented in this encounter Care Teams Objective C Developer Relationship Specialty Start Date End Date Robe Parker, IrisD [address] [place] [address] Pharmacist Internal Medicine 06/15/23 documented as of this encounter
--- OUTSIDE RECORDS SUMMARY | 2025-01-29 13:06 | XMS_ITS | Encounter Summary ---
Author Organization [employer] Address [address] [facility] [address] 7[address] [place] [address] Care Team Providers Care Natural Gas Shothole Driller Name Role Phone Sherry Ward MD Primary Care Provider [phone] Keith Robe PharmD Unavailable [phone] Encounter Details Date Type Department Care Team (Late st Contact Info) Description 11/02/2023 Orders Only [facility] MEDICINE 230 [place], [place] [phone] Sherry Ward MD [address] [place], [place] [phone] Left foot pain (Primary Dx) Social History [...] limb documented in this encounter Care Teams Natural Gas Shothole Driller Relationship Specialty Start Date End Date Sherry Ward MD [address] [place] [address] PCP - General Family Medicine 11/20/18 12/17/23 Robe Parker, IrisD [address] [place] [address] Pharmacist Internal Medicine 06/15/23 documented as of this encounter
--- OUTSIDE RECORDS SUMMARY | 2025-01-29 13:06 | XMS_ITS | Encounter Summary ---
Author Organization [employer] Address [address] [facility] 7t [place] [address] Care Team Providers Care Lamination Inspector Name Role Phone Sherry Ward MD Primary Care Provider [phone] Parker Robe PharmD Unavailable [phone] Reason for Visit * Reason Onset Date Comments Lab Request 01/16/2023 Patient walked i n requesting for lab examination to see potassium levels. Patient has been on kayexalate for a month already and would like to see how his levels are doing. Encounter Details Date Type Department Care Team (Late st Contact Info) Description 01/16/2023 Telephone [facility] MEDICINE [address] [place] [address] Sherry Ward MD [address] [place], [place] [phone] Lab Request (Patient walked in requesting for [...] he wants to get them done at [facility]. Informed we would have to change the [...] on filedocumented in this encounter Care Teams Lamination Inspector Relationship Specialty Start Date End Date Sherry Ward MD [address] [place] [address] PCP - General Family Medicine 11/20/18 12/17/23 Robe Parker, PharmD [address] [place] [address] Pharmacist Internal Medicine 06/15/23 documented as of this encounter
--- OUTSIDE RECORDS SUMMARY | 2025-01-29 13:06 | XMS_ITS | Patient Health Record ---
Author Organization [facility] Address [address] [place] [address] Care Team Providers Care Audio Visual Technician Name Role Phone Joycelyn Brothers M.D. Primary Care Provider Jasson Adams Unavailable [phone] Allergies Allergen (clinical drug ingredient) Drug/Non Drug Allergy documented on EMR Reaction Allergy Type Onset Date Status morphine Morphine Unknown Drug Allergy Active Reason For Referral No Information Medications Medication SIG (Take, Route, Frequency, Duration) Notes [...] as needed O rally as needed Active Immunizations Vaccine Route Administration Date Status Comme nts Influenza Unknown 09/25/2018 Administered Social History Tobacco Use: Social History Observation Description Date Details (start date - stop date) Former Smoker NA - NA Tobacco Use/Smoking Question Answer Notes Patient is a former smoker How long has it been since you last smoked? 1-3 months Alcohol Screen Question Answer Notes Did you have a drink containing alcohol in the p ast year? No Points 0 Interpretation Negative Section Notes: Smoker; no sig. alcohol Nonsmoker since 2014; no sig . alcohol Nonsmoker since 2014; no sig . alcohol Nonsmoker since 2014; no sig . 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 [address] [place] [address] [id number] SEMAJ PATTERSON Self - patient is the insured Medical (General) History Medical History History ICD Code Kidney disease-followed by Dr. Tae johansen HTN Denies [place],CVA,Lung disease Hyperlipidemia Rx'd for H.pylori in 06/2012 [...]
--- OUTSIDE RECORDS SUMMARY | 2025-01-29 13:06 | XMS_ITS | Encounter Summary ---
Author Organization [employer] Address [address] [facility] 7t [place] [address] Care Team Providers Care Policeman Name Role Phone Robe Parker PharmD Unavailable Reason for Visit * Reason Comments Med Refill Encounter Details Date Type Department Care Team ([facility] st Contact Info) Description 09/26/2024 Refill [facility] MEDICINE 230 [place], [place] [phone] Sherry Ward MD 230 [place], [place] [phone] Dyslipidemia Social History Tobacco Use Types Packs/Day [...] hyperlipidemia documented in this encounter Care Teams Policeman Relationship Specialty Start Date End Date Robe Parker PharmD [address] [place] [address] Pharmacist Internal Medicine 06/15/23 documented as of this encounter
--- OUTSIDE RECORDS SUMMARY | 2025-01-29 13:06 | XMS_ITS | Encounter Summary ---
Author Organization [email or web address] Address [address] [place] [address] 7t [place] [address] Care Team Providers Care Director Of Technology Name Role Phone Sherry Ward MD Primary Care Provider [phone] Robe Parker PharmD Unavailable [phone] Encounter Details Date Type Department Care Team (Late st Contact Info) Description 11/04/2022 Orders Only [facility] MEDICINE 230 [place] [address] Sharon Ko, RN Social History Tobacco Use [...] on filedocumented in this encounter Care Teams Director Of Technology Relationship Specialty Start Date End Date Sherry Ward MD 230 [place] [address] PCP - General Family Medicine 11/20/18 12/17/23 Robe Parker, PharmD [address] [place] [address], [place] [address] Pharmacist Internal Medicine 06/15/23 documented as of this encounter
--- OUTSIDE RECORDS SUMMARY | 2025-01-29 13:06 | XMS_ITS | Encounter Summary ---
Author Organization [facility] Address [address] [facility] [address] [place] [address] Phone Care Team Providers Care Health Services Administrator Name Role Phone Joycelyn Brothers DO Primary Care Provider Ema ilable Encounter Details Date Type Department Care Team (Late st Contact Info) Description 05/29/2021 Orders Only [facility] [address] [place] [phone] Alex Garcia MD Chronic kidney disease stage [...] (HCC) documented in this encounter Care Teams Health Services Administrator Relationship Specialty Start Date End Date Joycelyn Brothers DO PCP - General 11/30/20 documented as of this encounter
--- OUTSIDE RECORDS SUMMARY | 2025-01-29 13:06 | XMS_ITS | Clinical Summary ---
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 1 [...] taking febuxostat 40 mg daily prescribed by commercial drone software developer - continue febuxostat 40 mg daily - [...] fibrilation - medication: warfarin - monitored by [facility] - most recent INR 2.2 on 10/20/23 - continue current treatment plan Assessment & Plan (03/21/2023 11:52 AM EDT): - indication: Atrial fibrilation - medication: warfarin - monitored by [facility] Antico[facility] - most recent INR 1.6 [...] Assessment & Plan (11/05/2023 4:30 PM EST): -Header Dock: Dr. Roland, last seen in Sep 2023 -Baseline SCr 2.0-2.4; eGFR 27-32, K 4.9-5.4 -Avoid nephrotoxic drugs/substances and behaviors, including NSAIDs use. -Renal dose medications. Assessment & Plan (03/13/2023 1:36 PM EDT): -Header Dock: Dr. Roland, last seen in 12/27/21 -Baseline SCr 2.4-2.8; eGFR 22-26, CrCl 28.5 -Most recent lab: 08/05/22 K 5.2, BUN 46, SCr 2.48; eGFR 26 -Avoid nephrotoxic drugs/substances and behaviors, including NSAIDs use. -Renal dose medications. Assessment & Plan (12/19/2022 1:28 PM EST): -Header Dock: Dr. Roland, last seen in 12/27/21 -Baseline SCr 2.4-2.8; eGFR 22-26, CrCl 28.5 -Most recent lab: 08/05/22 K 5.2, BUN 46, SCr 2.48; eGFR 26 -Avoid nephrotoxic drugs/substances and behaviors, including NSAIDs use. -Renal dose medications. Assessment & Plan (11/07/2022 4:55 AM EST): -Header Dock: Dr. Roland, last seen in 12/27/21 -Baseline SCr 2.4-2.8; eGFR 22-26, CrCl 28.5 -Most recent lab: 08/05/22 K 5.2, BUN 46, SCr 2.48; eGFR 26 -Avoid nephrotoxic drugs/substances and behaviors, including NSAIDs use. -Renal dose medications. Chronic interstitial nephritis 04/02/2021 Proteinuria 04/02/2021 Ischemic heart disease 04/30/2018 Assessment & Plan (11/05/2023 4:06 PM EST): -Grain Elevator Agent, Dr. Cain, seen in April 2023 -TIA [...] Assessment & Plan (03/13/2023 1:29 PM EDT): -Grain Elevator Agent, Dr. Cain, seen on 11/10/22 -TIA in January 2018. Dx Afib. Started on Coumadin. -03/14/18 BRITTANY to distal RCA. Completed uninterrupted Plavix and Coumadin therapy for 1 year. Plan was to swithc Plavix to ASA. Pt is not on ASA or Plavix at this time because his CAD is stable per accounting practice manager. - Last echo in 12/28/21: Normal LV function, EF 55-60%. slight decrease from last echo. mild GERD reguigitation -Continue current medications Assessment & Plan (12/25/2022 7:27 AM EST): -Grain Elevator Agent, Dr. Cain, seen on 11/10/22 -TIA in January 2018. Dx Afib. Started on Coumadin. -03/14/18 BRITTANY to distal RCA. Completed uninterrupted Plavix and Coumadin therapy for 1 year. Plan was to swithc Plavix to ASA. Pt is not on ASA or Plavix at this time because his CAD is stable per accounting practice manager. - Last echo in 12/28/21: Normal LV function, EF 55-60%. slight decrease from last echo. mild GERD reguigitation -Continue current medications Assessment & Plan (11/07/2022 5:02 AM EST): -Grain Elevator Agent, Dr. Cain, seen on 05/19/22 -TIA in January 2018. Dx Afib. Started on Coumadin. -03/14/18 BRITTANY to distal RCA. Completed uninterrupted Plavix and Coumadin therapy for 1 year. Plan was to swithc Plavix to ASA. Pt is not on ASA or Plavix at this time because his CAD is stable per accounting practice manager. - Last echo in 12/28/21: Normal LV [...] whether he is bradycardia and tachycardia -his accounting practice manager recommends rate control rather than rhythm control - Continue rate control with metoprolol tartrate 100 mg bid - Continue digoxin 125 mcg daily - Continue warfarin, which is monitored by [facility] Anticoagulation clinic -- Treatment Hx: --Previously on [...] whether he is bradycardia and tachycardia -his accounting practice manager recommends rate control rather than rhythm control - Continue rate control with metoprolol tartrate 100 mg bid - Continue digoxin 125 mcg daily - Continue warfarin, which is monitored by [facility] Anticoagulation clinic -- Treatment Hx: --Previously on [...] wheter he is bradycardiac and tachycardiac -his accounting practice manager recommends rate control rather than rhythm control - Continue rate control with metoprolol tartrate 100 mg bid - Continue digoxin 125 mcg daily - Continue warfarin, which is monitored by [facility] Anticoagulation clinic -- Treatment Hx: --Previously on [...] microalbuminuria due to type 2 diabetes mellitus ([facility]) 12/25/2014 Type 2 diabetes mellitus [...] Logan -Pt requests to be referred to [facility] GI where his son goes Assessment & [...] wheter he is bradycardiac and tachycardiac -his accounting practice manager recommends rate control rather than rhythm control [...] decreased -Continue Coumadin, which is monitored by [facility] anticoagulation clinic. -Holter monitor on 04/13/22 showed average HR 61 bpm, sinus. A-fib 36%. -Holter monitor on 09/08/22 showed average HR 101 bpm, baseline A-fib, HR > 100 for 67% period -Pt states he has been taking digoxin. Will confirm it with accounting practice manager. Mild intermittent asthma 09/01/201503/2023 Immunizations Name Administration [...] disease, without long-term current use of insulin ([facility]) HM COLONOSCOPY Routine 04/22/2019 from Last 3 Months or Most Recently Relevant to Health Maintenance Results * (ABNORMAL) Lipid Panel with Reflex to Direct LDL (10/30/2023 2:57 PM EST) Triglycerides 433(H) <150 mg/dL [facility] Comment:Desirable Triglyceri de: less than 150 mg/dLBorderline High Triglyceride 150-199 mg/dLHigh Triglyceride: 200-499 mg/dLVery High Triglyceride: greater than or equal to 5OO mg/dL Cholesterol 266(H) <200 mg/dL [facility] Comment:Desirable Cholestero l: less than 200 mg/dLBorderline High Cholesterol: 200-239 mg/dLHigh Cholesterol: greater than 239 mg/dL LDL Cholesterol Calculated TNP <100 mg/dL [facility] Comment:Unable to calculate the LDL. The formula of Friedwald,Olsen, and Stefanie is only valid if the triglycerides areless than 400 mg/dl. HDL Cholesterol 28(L) >40 mg/dL [facility] Comment:Desirable HDL: great er than 40 mg/dL Note: This HDL assay may give artificially low results in patients with liver disease. Blood 10/30/2023 2:57 PM EST 10/30/2023 3:58 PM EST Sherry Ward MD LAB BLOOD ORDERABLES Final Resul t [facility] [address] [place] [phone] * (ABNORMAL) POCT glycosylated hemoglobin (Hgb A1c) (10/30/2023 2:23 PM EST) Hemoglobin A1C 7.1(A) 4.0 - 6.0 % QC Media Lot # [id number] Lot# Expiration Date Blood Capillary blood specimen / Unknown 10/30/2023 2:23 PM EST Sherry Ward MD POINT OF CARE TEST ENTER/EDIT OR DERABLES Final Result * Hm Colonoscopy (04/22/2019) [facility] Colonoscopy Normal Normal us Historical Provider MD HEALTH MAINTENANCE Final Result from Last 3 Months or Most Recently Relevant to Health Maintenance Insurance [facility] DUAL COMPLETE [facility] [employer] Care Teams Propellant Charge Loader Relationship Specialty Start Date End Date Robe Parker PharmD [address] [place] [address] Pharmacist Internal Medicine 06/15/23
--- OUTSIDE RECORDS SUMMARY | 2025-01-29 13:06 | XMS_ITS | Encounter Summary ---
Author Organization [employer] Address [address] [place] [address] 7t [place] [address] Care Team Providers Care Destination Imagination Coordinator Name Role Phone Sherry Ward MD Primary Care Provider [phone] Parker Robe PharmD Unavailable [phone] Reason for Visit * Reason Onset Date Comments triage 11/25/2022 Encounter Details Date Type Department Care Team ([facility] st Contact Info) Description 11/25/2022 Telephone [facility] MEDICINE [address] [place], [place] [phone] Sherry Ward MD [address] [place], [place] [phone] triage Social History Tobacco Use Types Packs/Day [...] 11/25/2022 4:06 PM EST Triage call with [employer] Assistant General Manager ID [id number] Pt reports son came over this morning to test with home test. Pt isn't sure if it is positive and is requesting medication. Pt reports has had Covid before . Pt is unable to come to [facility] today for further testing. Pt symptoms are [...] on filedocumented in this encounter Care Teams Destination Imagination Coordinator Relationship Specialty Start Date End Date Sherry Ward MD [address] [place] [address] PCP - General Family Medicine 11/20/18 12/17/23 Robe Parker PharmD [address] [place] [address] Pharmacist Internal Medicine 06/15/23 documented as of this encounter
--- OUTSIDE RECORDS SUMMARY | 2025-01-29 13:06 | XMS_ITS | Encounter Summary ---
Author Organization [employer] Address [address] [place] [address] 7t [place] [address] Care Team Providers Care Shipbuilding Draftsperson Name Role Phone Sherry Ward MD Primary Care Provider [phone] Robe Parker PharmD Unavailable [phone] Reason for Referral * Imaging (Routine) - Closed Specialty Diagnoses / Procedures Referred By Contac t Referred To Contact Diagnoses Vertigo Ischemic heart disease Chronic atrial fibrillation (CMS/HCC) Essential hypertension Procedures Mr Brain w/ and w/o Contrast Sherry Ward MD [address] [place] [address] Phone: tel: fax: [facility] Scan [address] [place], [place] Phone: tel: fax: Referral ID Status Reason Start Date Expiration Date Visits Re quested Visits Authorized [id number] Closed 11/17/2022 11/17/2023 1 1 Encounter Details Date Type Department Care Team (Late st Contact Info) Description 11/08/2022 Orders Only [facility] MEDICINE [address] [place], [place] [phone] Sherry Ward MD [address] [place], [place] [phone] Vertigo (Primary Dx); Ischemic heart disease; Chronic [...] hypertension documented in this encounter Care Teams Shipbuilding Draftsperson Relationship Specialty Start Date End Date Sherry Ward MD [address] [place] [address] PCP - General Family Medicine 11/20/18 12/17/23 Robe Parker, IrisD [address] [place] [address] Pharmacist Internal Medicine 06/15/23 documented as of this encounter
--- OUTSIDE RECORDS SUMMARY | 2025-01-29 13:07 | XMS_ITS | Encounter Summary ---
Author Organization [employer] Address [address] [facility] 7t [place] [address] Care Team Providers Care Carton Machine Operator Name Role Phone Robe Parker PharmD Unavailable [phone] Reason for Visit * Reason Comments Med Refill Encounter Details Date Type Department Care Team ([facility] st Contact Info) Description 03/08/2024 Refill [facility] MEDICINE [address] [place], [place] [phone] Roopa Unger ANP [address] [place], [place] [phone] Social History Tobacco Use Types Packs/Day Years [...] on filedocumented in this encounter Care Teams Carton Machine Operator Relationship Specialty Start Date End Date Robe Parker PharmD [address] [place] [address] Pharmacist Internal Medicine 06/15/23 documented as of this encounter
--- OUTSIDE RECORDS SUMMARY | 2025-01-29 13:07 | XMS_ITS | Encounter Summary ---
Author Organization [employer] Address 75 [facility] 7t [place] [address] Care Team Providers Care Inside Sales Coordinator Name Role Phone Robe Parker PharmD Unavailable [phone] Reason for Visit * Reason Comments Med Refill Encounter Details Date Type Department Care Team ([facility] st Contact Info) Description 03/11/2024 Refill [facility] MEDICINE [address] [place], [place] [phone] Sherry Ward MD 230 [place], [place] [phone] Neuropathic pain Social History Tobacco Use Types [...] pain documented in this encounter Care Teams Inside Sales Coordinator Relationship Specialty Start Date End Date Robe Parker, IrisD [address] [place] [phone] Pharmacist Internal Medicine 06/15/23 documented as of this encounter
--- OUTSIDE RECORDS SUMMARY | 2025-01-29 13:07 | XMS_ITS | Encounter Summary ---
Author Organization [employer] Address 75 [facility] 7t [place] [address] Care Team Providers Care Ball Racker Name Role Phone Robe Parker PharmD Unavailable [phone] Reason for Visit * Reason Comments Med Refill Encounter Details Date Type Department Care Team ([facility] st Contact Info) Description 05/07/2024 Refill [facility] MEDICINE 230 [place], [place] [phone] Sherry Ward MD 230 [place], [place] [phone] Social History Tobacco Use Types Packs/Day Years [...] on filedocumented in this encounter Care Teams Ball Racker Relationship Specialty Start Date End Date Robe Parker, IrisD [address] [place] [phone] Pharmacist Internal Medicine 06/15/23 documented as of this encounter
--- OUTSIDE RECORDS SUMMARY | 2025-01-29 13:07 | XMS_ITS | Encounter Summary ---
Author Organization [employer] Address [address] [facility] 7t [place] [address] Care Team Providers Care Legal Intern Name Role Phone Robe Parker PharmD Unavailable [phone] Reason for Visit * Reason Comments Med Refill Encounter Details Date Type Department Care Team ([facility] st Contact Info) Description 01/11/2024 Refill [facility] MEDICINE 230 [place], [place] [phone] Jaqui Chowdary MD 230 [place], [place] [phone] Social History Tobacco Use Types Packs/Day Years [...] on filedocumented in this encounter Care Teams Legal Intern Relationship Specialty Start Date End Date Robe Parker, IrisD [address] [place] [phone] Pharmacist Internal Medicine 06/15/23 documented as of this encounter
--- OUTSIDE RECORDS SUMMARY | 2025-01-29 13:07 | XMS_ITS | Encounter Summary ---
Author Organization [employer] Address [address] [facility] 7t [place] [address] Care Team Providers Care Histology Technician Name Role Phone Robe Parker PharmD Unavailable [phone] Reason for Visit * Reason Comments Med Refill Encounter Details Date Type Department Care Team ([facility] st Contact Info) Description 03/08/2024 Refill [facility] MEDICINE 230 [place], [place] [phone] Sherry Ward MD 230 [place], [place] [phone] Neuropathic pain Social History Tobacco Use Types [...] pain documented in this encounter Care Teams Histology Technician Relationship Specialty Start Date End Date Robe Parker, IrisD [address] [place] [phone] Pharmacist Internal Medicine 06/15/23 documented as of this encounter
== END 2025-01-29 11:32 | disposition home or self-care (01) ==
LOC: HO.ACS 11:07
PROVIDERS: PCP Physician Assistant; Visit Provider Internal Medicine
DX: Z79.01 Long term (current) use of anticoagulants (principal)

== ENCOUNTER → 2025-01-29 11:07 | Outpatient (BNVA) | payer OTHER, SELFPAY | PROVIDERS: PCP Physician Assistant; Visit Provider Internal Medicine | DX: I48.0 Paroxysmal atrial fibrillation (principal); Z79.01 Long term (current) use of anticoagulants; Z51.81 Encounter for therapeutic drug level monitoring | CPT/HCPCS: 85610; 99211 ==

== ENCOUNTER 2025-02-05 12:01 | Outpatient (REF) | payer OTHER, SELFPAY ==
[2025-02-05 12:51] LABS: Hematocrit 40.7 % (42.0-52.0); Hemoglobin 13.2 g/dl (14.0-18.0); Mean Corpuscular HGB Conc 32.4 g/dl (31.0-36.0); Mean Corpuscular Hemoglobin 26.7 pg (27.0-33.0); Mean Corpuscular Volume 82.4 fL (80.0-98.0); Platelet Count 209 X10*3/uL (160-400); Red Blood Count 4.94 X10*6/uL (4.60-5.80); Red Cell Distribution Width 15.9 % (11.0-16.0); White Blood Count 7.8 X10*3/uL (4.8-10.8)
[2025-02-05 13:30] LABS: Anion Gap 13 (12-20); Blood Urea Nitrogen 85 mg/dL (9-16); Calcium 9.3 mg/dL (8.4-10.2); Carbon Dioxide 26 mmol/L (22-29); Chloride 107 mmol/L (96-108); Estimated Glomerular Filt Rate 13; Glucose Random 100 mg/dL (60-115); Potassium 5.6 mmol/L (3.3-5.1); Sodium 140 mmol/L (135-145)
== END 2025-02-05 12:02 | disposition home or self-care (01) ==
LOC: HO.LAB 12:01
PROVIDERS: PCP Physician Assistant; Visit Provider Internal Medicine Hypertension Specialist
DX: N18.5 Chronic kidney disease, stage 5 (principal)
CPT/HCPCS: 36415; 80048; 85027

== ENCOUNTER 2025-02-11 13:56 | Outpatient (AMB) | payer OTHER, SELFPAY ==
--- NOTE | 2025-02-11 14:12 | HO.NEPHOV_ITS ---
Vital Signs 02/11/25 14:13 Height 5 ft 6 in Weight 185 lb BMI 29.9 BP 138/98 H Blood Pressure Location Lt brachial Position Sitting Pulse 83 Pulse Source Pulse Oximeter Pulse Oximetry (%) 97 Oxygen Delivery Method Room Air Intake Visit Reasons: CKD/ Conf Liquid Chlorine Operator Required: No Accompanied by: Son Allergies lisinopril [LISINOPRIL] Allergy (Severe, Verified 02/11/25 14:15) ACUTE KIDNEY INJURY oxycodone [Percocet] Allergy (Intermediate, Verified 02/11/25 14:15) agitation codeine [CODEINE] Allergy (Unknown, Verified 02/11/25 14:15) AGITATION morphine [MORPHINE] Allergy (Unknown, Verified 02/11/25 14:15) AGITATION, confusion From PERCOCET Allergy (Unknown, Uncoded 01/29/25 11:21) AGITATION Medication List - Last Reconciled 02/11/25 by Alex Garcia MD amlodipine 2.5 mg PO DAILY atorvastatin 80 mg PO QAM cholecalciferol (vitamin D3) 25 mcg PO DAILY compression socks, large As directed febuxostat (Uloric) 40 mg PO DAILY fluticasone propionate 50 mcg/actuation 1 spray intranasal DAILY 30 days furosemide (Lasix) 40 mg PO QAM 90 days gabapentin 200 mg (2 x 100 mg) PO BEDTIME 30 days meclizine 25 mg PO TID PRN 30 days metoprolol tartrate 50 mg See Protocol PO BID 90 days prednisone 10 mg PO ONCE PRN simethicone 180 mg PO QID 30 days warfarin 7.5 mg See Protocol PO MO warfarin 5 mg See Protocol PO SUTUWETHFRSA HPI Comments Details: Elderly man with 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 He is here for regular follow-up. Accompanied by son. History of gout he was treated with a course of prednisone. He took Uloric for a month and stopped it [place]cently returned from [place] Ate plenty of Papaya and fruits/Nuts 06/10/24 ;ON Uloric; Gout under control ;Off LAsix ;still has foot pain - mostly in heel 10/14/24 In mid August he had preparation for colonoscopy. He had significant diarrhea. Colonoscopy was canceled. REcently hospitalized ;Had GONZALO with fluid overload ;REsponded to IV diuretics ;Wt down to 184 ;No dyspnea ;NO nausea or vomiting 12/24/24 ;Feels better. No new issues ;Gained weight ;Accompanied by son PFSRonald Medical History Allergies Sinus bradycardia Pre-op examination Annual physical exam History of TIA (transient ischemic attack) Gout Personal history of nicotine dependence Chronic kidney disease, stage 3 unspecified Benign prostatic hyperplasia with lower urinary tract symptoms HTN (hypertension) CAD (coronary artery disease) Paroxysmal atrial fibrillation Surgical History Stented coronary artery Hx of colonoscopy Hx of cardiac cath Hx of cystoscopy History of esophagogastroduodenoscopy (EGD) Hx of cataract extraction Family History Mother CAD (coronary artery disease) Diabetes HTN (hypertension) Father CAD (coronary artery disease) Diabetes HTN (hypertension) Social History Household Members: None Housing: Apartment Do you presently have visiting nurse or other home services: No Alcohol intake: former Patient Tobacco Use Status: Former Tobacco user Tobacco use type: Cigarette Years Smoked: 40 +/- e-Cigarette/Vaping Use: Never Used Second Hand Smoke Exposure: No service: No Current occupational status: retired and disabled Cognitive needs: No Hearing needs: No Vision needs: Yes Physical Exam Vital Signs: Last Vital Signs Pulse 83 02/11/25 14:13 BP 138/98 H 02/11/25 14:13 Pulse Ox 97 02/11/25 14:13 Oxygen Delivery Method Room Air 02/11/25 14:13 BMI result Body Mass Index 29.9 Comfortable Neck supple no JVD. Lungs entry equal no rales. Heart S1-S2 heard no gallop or rub. Abdomen soft nontender. Neuro alert awake oriented. No asterixis. Extremities no edema. Results Reviewed Nephrology Results: Hgb 13.2 g/dl (14.0-18.0) L 02/05/25 WBC 7.8 X10*3/uL (4.8-10.8) 02/05/25 Plt Count 209 X10*3/uL (160-400) 02/05/25 Sodium 140 mmol/L (135-145) 02/05/25 Potassium 5.6 mmol/L (3.3-5.1) H 02/05/25 Chloride 107 mmol/L (96-108) 02/05/25 Carbon Dioxide 26 mmol/L (22-29) 02/05/25 BUN 85 mg/dL (9-16) H 02/05/25 Creatinine 4.42 mg/dL (0.5-1.4) H* 02/05/25 Calcium 9.3 mg/dL (8.4-10.2) 02/05/25 Assessment & Plan Assessment & Plan (1) CKD (chronic kidney disease) stage 5, GFR less than 15 ml/min: Code(s): N18.5 - Chronic kidney disease, stage 5 Category: Medical Plan: Chronic disease due to interstitial nephritis by biopsy. Initial biopsy was done only [facility] and no tissue was obtained. Repeat biopsy was done and was [facility] which revealed interstitial nephritis with global sclerosis. Sustained another episode of GONZALO. At present no signs or symptoms of uremia No absolute indication for dialysis yet Fluid status acceptable Continue to avoid nephrotoxic agents. Will monitor renal function closely (2) Acute kidney injury superimposed on CKD: Code(s): N17.9 - Acute kidney failure, unspecified; N18.9 - Chronic kidney disease, unspecified Category: Medical Plan: Due to tubular injury. Marginal improvement (3) HTN (hypertension): Code(s): I10 - Essential (primary) hypertension Category: Medical Qualifiers: Hypertension type: primary hypertension Qualified Code(s): I10 - Essential (primary) hypertension Plan: Blood pressure is well controlled Low-salt diet (4) Gout: Code(s): M10.9 - Gout, unspecified Category: Medical Plan: Seems to be under control. Keep Uloric to lower uric acid We discussed low purine diet (5) Hyperkalemia: Code(s): E87.5 - Hyperkalemia Category: Medical Plan: K was 5.2 Reviewed diet Discussed Low K diet ADD LOKELMA 5 gm PO 2 x week Plan He will be a good candidate for CCPD Referred for dialysis education Orders: Orders Basic Metabolic Panel 4 Weeks N18.5 - Chronic kidney disease, stage 5 Medications: New sodium zirconium cyclosilicate 10 grams orally Every Monday and ; 11 ea 0RF Coding Level of Care Code Est Pt Level 4 (96845) Diagnoses CKD (chronic kidney disease) stage 5, GFR less than 15 ml/min N18.5 Acute kidney injury superimposed on CKD N17.9; N18.9 Primary hypertension I10 Hypertension type: primary hypertension Gout M10.9 Hyperkalemia E87.5
[2025-02-11 14:13] VITALS: BP 138/98; PULSE 83; O2SAT 97; BMI 29.9
== END 2025-02-11 14:32 | disposition home or self-care (01) ==
LOC: HO.HKA 13:56
PROVIDERS: PCP Physician Assistant; Visit Provider Internal Medicine Hypertension Specialist
DX: I12.9 Hypertensive chronic kidney disease with stage 1 through stage 4 chronic kidney disease, or unspecified chronic kidney disease (principal); N18.5 Chronic kidney disease, stage 5; N17.9 Acute kidney failure, unspecified; N18.9 Chronic kidney disease, unspecified; M10.9 Gout, unspecified; E87.5 Hyperkalemia
CPT/HCPCS: 99214

== ENCOUNTER → 2025-02-11 13:56 | Outpatient (BNVA) | payer OTHER, SELFPAY | PROVIDERS: PCP Physician Assistant; Visit Provider Internal Medicine Hypertension Specialist | DX: I12.0 Hypertensive chronic kidney disease with stage 5 chronic kidney disease or end stage renal disease (principal); N18.5 Chronic kidney disease, stage 5; N17.9 Acute kidney failure, unspecified; M10.9 Gout, unspecified; E87.5 Hyperkalemia | CPT/HCPCS: 99212 ==

== ENCOUNTER 2025-02-12 11:28 | Outpatient (AMB) | payer OTHER, SELFPAY ==
[2025-02-12 11:47] LABS: Prothrombin Time Whole Bld POC 34.3 sec (11.1-13.5); ~PT, ~INR - Anti Coag Clinic 2.9 (0.9-1.1)
--- NOTE | 2025-02-12 11:55 | MHC.OFFVISCO ---
Intake Intake Visit Reasons: Anticoagulation Allergies lisinopril [LISINOPRIL] Allergy (Severe, Verified 02/12/25 11:32) ACUTE KIDNEY INJURY oxycodone [Percocet] Allergy (Intermediate, Verified 02/12/25 11:32) agitation codeine [CODEINE] Allergy (Unknown, Verified 02/12/25 11:32) AGITATION morphine [MORPHINE] Allergy (Unknown, Verified 02/12/25 11:32) AGITATION, confusion From PERCOCET Allergy (Unknown, Uncoded 01/29/25 11:21) AGITATION Medication List - Last Reconciled 02/12/25 by Elma Choudhury RN amlodipine 2.5 mg PO DAILY atorvastatin 80 mg PO QAM cholecalciferol (vitamin D3) 25 mcg PO DAILY compression socks, large As directed febuxostat (Uloric) 40 mg PO DAILY fluticasone propionate 50 mcg/actuation 1 spray intranasal DAILY 30 days furosemide (Lasix) 40 mg PO QAM 90 days gabapentin 200 mg (2 x 100 mg) PO BEDTIME 30 days meclizine 25 mg PO TID PRN 30 days metoprolol tartrate 50 mg See Protocol PO BID 90 days prednisone 10 mg PO ONCE PRN simethicone 180 mg PO QID 30 days sodium zirconium cyclosilicate (Lokelma) 10 grams orally Every Monday and ; warfarin 7.5 mg See Protocol PO MO warfarin 5 mg See Protocol PO SUTUWETHFRSA Nursing Note NO CP,SOB,DIET/MED CHANGES,FALLS OR SX OF BLEEDING. CONTINUR PRESENT DOSING AND FOLLOW-UP IN 3 WEEKS. GOOD UNDERSTANDING OF DOSING INSTR. Anti-Coag Initial Assessment Social Hx Patient Tobacco Use Status: Former Tobacco user Tobacco use type: Cigarette alcohol intake: former Alcohol intake frequency: does not drink Coding Level of Care Code Est Patient Level 1 Diagnoses Current use of anticoagulant therapy Z79.01 Assessment & Plan Assessment & Plan (1) Current use of anticoagulant therapy: Code(s): Z79.01 - termite control servicer (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
--- OUTSIDE RECORDS SUMMARY | 2025-02-12 13:55 | XMS_ITS | Encounter Summary ---
Author Organization [employer] Address 75 [facility] 7t [place] [address] Care Team Providers Care Pit Slagman Name Role Phone Robe Parker PharmD Unavailable [phone] Reason for Visit * Reason Comments Med Refill Encounter Details Date Type Department Care Team ([facility] st Contact Info) Description 03/11/2024 Refill [facility] MEDICINE 230 [place], [place] [phone] Sherry Ward MD 230 [place], [place] [phone] Neuropathic pain Social History Tobacco Use Types [...] pain documented in this encounter Care Teams Pit Slagman Relationship Specialty Start Date End Date Robe Parker, IrisD [address] [place] [phone] Pharmacist Internal Medicine 06/15/23 documented as of this encounter
--- OUTSIDE RECORDS SUMMARY | 2025-02-12 13:55 | XMS_ITS | Encounter Summary ---
Author Organization [employer] Address 75 [facility] 7t [place] [address] Care Team Providers Care Optical Effects Layout Person Name Role Phone Robe Parker PharmD Unavailable [phone] Reason for Visit * Reason Comments Med Refill Encounter Details Date Type Department Care Team ([facility] st Contact Info) Description 09/26/[address] [facility] MEDICINE 230 [place], [place] [phone] Sherry Ward MD 230 [place], [place] [phone] Dyslipidemia Social History Tobacco Use Types Packs/Day [...] hyperlipidemia documented in this encounter Care Teams Optical Effects Layout Person Relationship Specialty Start Date End Date Robe Parker PharmD 230 [place] [address] Pharmacist Internal Medicine 06/15/23 documented as of this encounter
--- OUTSIDE RECORDS SUMMARY | 2025-02-12 13:55 | XMS_ITS | Encounter Summary ---
Author Organization [employer] Address [address] [place] [address] 7t [place] [address] Care Team Providers Care Gear Machinist Name Role Phone Sherry Ward MD Primary Care Provider [phone] Parker Robe PharmD Unavailable Reason for Visit * Reason Onset Date Comments triage 11/25/2022 Encounter Details Date Type Department Care Team ([facility] st Contact Info) Description 11/25/2022 Telephone [facility] MEDICINE 230 [place], [place] [phone] Sherry Ward MD 230 [place], [place] [phone] triage Social History Tobacco Use Types Packs/Day [...] 11/25/2022 4:06 PM EST Triage call with [employer] Coding Advisor ID [id number] Pt reports son came over this morning to test with home test. Pt isn't sure if it is positive and is requesting medication. Pt reports has had Covid before . Pt is unable to come to [facility] today for further testing. Pt symptoms are [...] on filedocumented in this encounter Care Teams Gear Machinist Relationship Specialty Start Date End Date Sherry Ward MD 230 [place] [address] PCP - General Family Medicine 11/20/18 12/17/23 Robe Parker PharmD 230 [place] [address] Pharmacist Internal Medicine 06/15/23 documented as of this encounter
--- OUTSIDE RECORDS SUMMARY | 2025-02-12 13:55 | XMS_ITS | Clinical Summary ---
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 1 [...] taking febuxostat 40 mg daily prescribed by cat driver - continue febuxostat 40 mg daily - [...] medication: warfarin - monitored by [facility] - most recent INR 2.2 on 10/20/23 - continue current treatment plan Assessment & Plan (03/21/2023 11:52 AM EDT): - indication: Atrial fibrilation - medication: warfarin - monitored by [facility] - most recent INR 1.6 [...] Assessment & Plan (11/05/2023 4:30 PM EST): -Systems Support Specialist: Dr. Roland, last seen in Sep 2023 -Baseline SCr 2.0-2.4; eGFR 27-32, K 4.9-5.4 -Avoid nephrotoxic drugs/substances and behaviors, including NSAIDs use. -Renal dose medications. Assessment & Plan (03/13/2023 1:36 PM EDT): -Systems Support Specialist: Dr. Roland, last seen in 12/27/21 -Baseline SCr 2.4-2.8; eGFR 22-26, CrCl 28.5 -Most recent lab: 08/05/22 K 5.2, BUN 46, SCr 2.48; eGFR 26 -Avoid nephrotoxic drugs/substances and behaviors, including NSAIDs use. -Renal dose medications. Assessment & Plan (12/19/2022 1:28 PM EST): -Systems Support Specialist: Dr. Roland, last seen in 12/27/21 -Baseline SCr 2.4-2.8; eGFR 22-26, CrCl 28.5 -Most recent lab: 08/05/22 K 5.2, BUN 46, SCr 2.48; eGFR 26 -Avoid nephrotoxic drugs/substances and behaviors, including NSAIDs use. -Renal dose medications. Assessment & Plan (11/07/2022 4:55 AM EST): -Systems Support Specialist: Dr. Roland, last seen in 12/27/21 -Baseline SCr 2.4-2.8; eGFR 22-26, CrCl 28.5 -Most recent lab: 08/05/22 K 5.2, BUN 46, SCr 2.48; eGFR 26 -Avoid nephrotoxic drugs/substances and behaviors, including NSAIDs use. -Renal dose medications. Chronic interstitial nephritis 04/02/2021 Proteinuria 04/02/2021 Ischemic heart disease 04/30/2018 Assessment & Plan (11/05/2023 4:06 PM EST): -Supervisor Electronics Processing, Dr. Cain, seen in April 2023 -TIA [...] Assessment & Plan (03/13/2023 1:29 PM EDT): -Supervisor Electronics Processing, Dr. Cain, seen on 11/10/22 -TIA in January 2018. Dx Afib. Started on Coumadin. -03/14/18 BRITTANY to distal RCA. Completed uninterrupted Plavix and Coumadin therapy for 1 year. Plan was to swithc Plavix to ASA. Pt is not on ASA or Plavix at this time because his CAD is stable per manager labor delivery. - Last echo in 12/28/21: Normal LV function, EF 55-60%. slight decrease from last echo. mild GERD reguigitation -Continue current medications Assessment & Plan (12/25/2022 7:27 AM EST): -Supervisor Electronics Processing, Dr. Cain, seen on 11/10/22 -TIA in January 2018. Dx Afib. Started on Coumadin. -03/14/18 BRITTANY to distal RCA. Completed uninterrupted Plavix and Coumadin therapy for 1 year. Plan was to swithc Plavix to ASA. Pt is not on ASA or Plavix at this time because his CAD is stable per manager labor delivery. - Last echo in 12/28/21: Normal LV function, EF 55-60%. slight decrease from last echo. mild GERD reguigitation -Continue current medications Assessment & Plan (11/07/2022 5:02 AM EST): -Supervisor Electronics Processing, Dr. Cain, seen on 05/19/22 -TIA in January 2018. Dx Afib. Started on Coumadin. -03/14/18 BRITTANY to distal RCA. Completed uninterrupted Plavix and Coumadin therapy for 1 year. Plan was to swithc Plavix to ASA. Pt is not on ASA or Plavix at this time because his CAD is stable per manager labor delivery. - Last echo in 12/28/21: Normal LV [...] whether he is bradycardia and tachycardia -his manager labor delivery recommends rate control rather than rhythm control - Continue rate control with metoprolol tartrate 100 mg bid - Continue digoxin 125 mcg daily - Continue warfarin, which is monitored by [facility] -- Treatment Hx: --Previously on [...] whether he is bradycardia and tachycardia -his manager labor delivery recommends rate control rather than rhythm control - Continue rate control with metoprolol tartrate 100 mg bid - Continue digoxin 125 mcg daily - Continue warfarin, which is monitored by [facility] -- Treatment Hx: --Previously on [...] wheter he is bradycardiac and tachycardiac -his manager labor delivery recommends rate control rather than rhythm control - Continue rate control with metoprolol tartrate 100 mg bid - Continue digoxin 125 mcg daily - Continue warfarin, which is monitored by [facility] -- Treatment Hx: --Previously on [...] microalbuminuria due to type 2 diabetes mellitus ([facility]) 12/25/2014 Type 2 diabetes mellitus [...] Logan -Pt requests to be referred to [facility] where his son goes Assessment & [...] wheter he is bradycardiac and tachycardiac -his manager labor delivery recommends rate control rather than rhythm control [...] decreased -Continue Coumadin, which is monitored by [facility]. -Holter monitor on 04/13/22 showed average HR 61 bpm, sinus. A-fib 36%. -Holter monitor on 09/08/22 showed average HR 101 bpm, baseline A-fib, HR > 100 for 67% period -Pt states he has been taking digoxin. Will confirm it with manager labor delivery. Mild intermittent asthma 09/01/201503/2023 Immunizations Name Administration [...] disease, without long-term current use of insulin ([facility]) HM COLONOSCOPY Routine 04/22/2019 from Last 3 Months or Most Recently Relevant to Health Maintenance Results * (ABNORMAL) Lipid Panel with Reflex to Direct LDL (10/30/2023 2:57 PM EST) Triglycerides 433(H) <150 mg/dL [facility] Comment:Desirable Triglyceri de: less than 150 mg/dLBorderline High Triglyceride 150-199 mg/dLHigh Triglyceride: 200-499 mg/dLVery High Triglyceride: greater than or equal to 5OO mg/dL Cholesterol 266(H) <200 mg/dL [facility] Comment:Desirable Cholestero l: less than 200 mg/dLBorderline High Cholesterol: 200-239 mg/dLHigh Cholesterol: greater than 239 mg/dL LDL Cholesterol Calculated TNP <100 mg/dL [facility] Comment:Unable to calculate the LDL. The formula of Friedwald,Olsen, and Stefanie is only valid if the triglycerides areless than 400 mg/dl. HDL Cholesterol 28(L) >40 mg/dL [facility] Comment:Desirable HDL: great er than 40 mg/dL Note: This HDL assay may give artificially low results in patients with liver disease. Blood 10/30/2023 2:57 PM EST 10/30/2023 3:58 PM EST Sherry Ward MD LAB BLOOD ORDERABLES Final Resul t [facility] [address] [place] [phone] * (ABNORMAL) POCT glycosylated hemoglobin (Hgb A1c) (10/30/2023 2:23 PM EST) Hemoglobin A1C 7.1(A) 4.0 - 6.0 % QC Media Lot # [id number] Lot# Expiration Date Blood Capillary blood specimen / Unknown 10/30/2023 2:23 PM EST Sherry Ward MD POINT OF CARE TEST ENTER/EDIT OR DERABLES Final Result * Hm Colonoscopy (04/22/2019) [facility] Colonoscopy Normal Normal us Historical Provider MD HEALTH MAINTENANCE Final Result from Last 3 Months or Most Recently Relevant to Health Maintenance Insurance [facility] Care Teams Photogrammetric Technician Relationship Specialty Start Date End Date Robe Parker PharmD [address] [place] [phone] Pharmacist Internal Medicine 06/15/23
--- OUTSIDE RECORDS SUMMARY | 2025-02-12 13:55 | XMS_ITS | Encounter Summary ---
Author Organization [employer] Address 75 [facility] 7t [place] [address] Care Team Providers Care Staffing Consultant Name Role Phone Robe Parker PharmD Unavailable [phone] Reason for Visit * Reason Comments Med Refill Encounter Details Date Type Department Care Team ([facility] st Contact Info) Description 05/07/2024 Refill [facility] MEDICINE 230 [place], [place] [phone] Sherry Ward MD 230 [place], [place] [phone] Social History Tobacco Use Types Packs/Day Years [...] on filedocumented in this encounter Care Teams Staffing Consultant Relationship Specialty Start Date End Date Robe Parker, IrisD [address] [place] [phone] Pharmacist Internal Medicine 06/15/23 documented as of this encounter
--- OUTSIDE RECORDS SUMMARY | 2025-02-12 13:55 | XMS_ITS | Encounter Summary ---
Author Organization [employer] Address 75 [facility] 7t [place] [address] Care Team Providers Care Casino Duty Manager Name Role Phone Sherry Ward MD Primary Care Provider [phone] Parker Robe PharmD Unavailable [phone] Reason for Visit * Reason Onset Date Comments Lab Request 01/16/2023 Patient walked i n requesting for lab examination to see potassium levels. Patient has been on kayexalate for a month already and would like to see how his levels are doing. Encounter Details Date Type Department Care Team (Late st Contact Info) Description 01/16/2023 Telephone [facility] MEDICINE 230 [place] [address] Sherry Ward MD 230 [place], [place] [phone] Lab Request (Patient walked in requesting for [...] he wants to get them done at [facility]. Informed we would have to change the [...] on filedocumented in this encounter Care Teams Casino Duty Manager Relationship Specialty Start Date End Date Sherry Ward MD [address] [place] [address] PCP - General Family Medicine 11/20/18 12/17/23 Robe Parker, PharmD 230 [place] [address] Pharmacist Internal Medicine 06/15/23 documented as of this encounter
--- OUTSIDE RECORDS SUMMARY | 2025-02-12 13:55 | XMS_ITS | Encounter Summary ---
Author Organization [employer] Address [address] [place] [address] 7t [place] [address] Care Team Providers Care Doors Prefitter Name Role Phone Sherry Ward MD Primary Care Provider [phone] Robe Parker PharmD Unavailable [phone] Encounter Details Date Type Department Care Team (Late st Contact Info) Description 11/04/2022 Orders Only [facility] MEDICINE 230 [place] [address] Sharon Ko, RN Social History Tobacco Use [...] on filedocumented in this encounter Care Teams Doors Prefitter Relationship Specialty Start Date End Date Sherry Ward MD 230 [place] [address] PCP - General Family Medicine 11/20/18 12/17/23 Robe Parker, PharmD [address] [place] [address], [place] [address] Pharmacist Internal Medicine 06/15/23 documented as of this encounter
--- OUTSIDE RECORDS SUMMARY | 2025-02-12 13:55 | XMS_ITS | Encounter Summary ---
Author Organization [employer] Address 75 [facility] 7t [place] [address] Care Team Providers Care Industrial Service Technician Name Role Phone Robe Parker PharmD Unavailable [phone] Reason for Visit * Reason Comments Med Refill Encounter Details Date Type Department Care Team ([facility] st Contact Info) Description 01/11/2024 Refill [facility] MEDICINE 230 [place], [place] [phone] Jaqui Chowdary MD 230 [place], [place] [phone] Social History Tobacco Use Types Packs/Day Years [...] on filedocumented in this encounter Care Teams Industrial Service Technician Relationship Specialty Start Date End Date Robe Parker, IrisD [address] [place] [address] Pharmacist Internal Medicine 06/15/23 documented as of this encounter
--- OUTSIDE RECORDS SUMMARY | 2025-02-12 13:55 | XMS_ITS | Encounter Summary ---
Author Organization [employer] Address 75 [facility] 7t [place] [address] Care Team Providers Care Business Support Specialist Name Role Phone Robe Parker PharmD Unavailable [phone] Reason for Visit * Reason Comments Med Refill Encounter Details Date Type Department Care Team ([facility] st Contact Info) Description 08/05/2024 Refill [facility] MEDICINE 230 [place], [place] [phone] Sherry Ward MD 230 [place], [place] [phone] Social History Tobacco Use Types Packs/Day Years [...] on filedocumented in this encounter Care Teams Business Support Specialist Relationship Specialty Start Date End Date Robe Parker, IrisD [address] [place] [address] Pharmacist Internal Medicine 06/15/23 documented as of this encounter
--- OUTSIDE RECORDS SUMMARY | 2025-02-12 13:55 | XMS_ITS | Encounter Summary ---
Author Organization [employer] Address [address] [place] [address] 7t [place] [address] Care Team Providers Care Bottle Labeler Name Role Phone Sherry Ward MD Primary Care Provider Robe Parker PharmD Unavailable [phone] Reason for Referral * Imaging (Routine) - Closed Specialty Diagnoses / Procedures Referred By Contac t Referred To Contact Diagnoses Vertigo Ischemic heart disease Chronic atrial fibrillation (CMS/HCC) Essential hypertension Procedures Mr Brain w/ and w/o Contrast Sherry Ward MD 230 [place] [address] Phone: tel: fax: [facility] MRI and CT Scan [address] [place], [place] Phone: tel: fax: Referral ID Status Reason Start Date Expiration Date Visits Re quested Visits Authorized [id number] Closed 11/17/2022 11/17/2023 1 1 Encounter Details Date Type Department Care Team (Late st Contact Info) Description 11/08/2022 Orders Only [facility] MEDICINE 230 [place], [place] [phone] Sherry Ward MD 230 [place], [place] [phone] Vertigo (Primary Dx); Ischemic heart disease; Chronic [...] hypertension documented in this encounter Care Teams Bottle Labeler Relationship Specialty Start Date End Date Sherry Ward MD 230 [place] [address] PCP - General Family Medicine 11/20/18 12/17/23 Robe Parker, IrisD [address] [place] [address] Pharmacist Internal Medicine 06/15/23 documented as of this encounter
--- OUTSIDE RECORDS SUMMARY | 2025-02-12 13:55 | XMS_ITS | Clinical Summary ---
Author Organization [facility] Address [address] [facility] [address] [place] [address] Phone Care Team Providers Care Head Of Operation And Logistics Name Role Phone Joycelyn Brothers DO Primary [...] adenomatous polyp of colon 01/26/2024 Tinnitus 03/21/2023 [facility] current use of anticoagulant Overview (01/26/2024): Last Assessment & Plan: - indication: Atrial fibrilation - medication: warfarin - monitored by [facility] Anticoagulation Clinic - most recent INR 1.6 [...] 04/02/2021 Overview (01/26/2024): Last Assessment & Plan: -Operational Intelligence Officer: Dr. Roland, last seen in 12/27/21 -Baseline SCr 2.4-2.8; eGFR 22-26, CrCl 28.5 -Most recent lab: 08/05/22 K 5.2, BUN 46, SCr 2.48; eGFR 26 -Avoid nephrotoxic drugs/substances and behaviors, including NSAIDs use. -Renal dose medications. Tinea pedis 04/30/2018 Ischemic heart disease 04/30/2018 Overview (01/26/2024): Last Assessment & Plan: -Sole Leveling Machine Operator, Dr. Cain, seen on 11/10/22 -TIA in January 2018. Dx Afib. Started on Coumadin. -03/14/18 BRITTANY to distal RCA. Completed uninterrupted Plavix and Coumadin therapy for 1 year. Plan was to swithc Plavix to ASA. Pt is not on ASA or Plavix at this time because his CAD is stable per systems navigator. - Last echo in 12/28/21: Normal LV function, EF 55-60%. slight decrease from last echo. mild GERD reguigitation -Continue current medications History of placement of stent for coronary arter y disease 04/30/2018 Chronic atrial fibrillation 02/09/2018 Overview (01/26/2024): Last Assessment & Plan: A-fib today, rate controlled. pt is usually asymptomatic whether he is bradycardia and tachycardia -his systems navigator recommends rate control rather than rhythm control - Continue rate control with metoprolol tartrate 100 mg bid - Continue digoxin 125 mcg daily - Continue warfarin, which is monitored by [facility] Anticoagulation clinic -- Treatment Hx: --Previously on [...] Completed 03/21/2016, 06/18/2015, 04/14/2010 Insurance DUAL COMPLETE ([id number]) DUAL COMPLETE ([id number]) Care Teams Head Of Operation And Logistics Relationship Specialty Start Date End Date Joycelyn Brothers DO PCP - General 11/30/20
--- OUTSIDE RECORDS SUMMARY | 2025-02-12 13:55 | XMS_ITS | Encounter Summary ---
Author Organization [employer] Address 75 [facility] 7t [place] [address] Care Team Providers Care Caramel Candy Maker Name Role Phone Robe Parker PharmD Unavailable [phone] Reason for Visit * Reason Comments Med Refill Encounter Details Date Type Department Care Team ([facility] st Contact Info) Description 03/08/2024 Refill [facility] MEDICINE 230 [place], [place] [phone] Roopa Unger ANP [address] [place], [place] [phone] Social History Tobacco Use Types Packs/Day Years [...] on filedocumented in this encounter Care Teams Caramel Candy Maker Relationship Specialty Start Date End Date Robe Parker PharmD [address] [place] [address] Pharmacist Internal Medicine 06/15/23 documented as of this encounter
--- OUTSIDE RECORDS SUMMARY | 2025-02-12 13:55 | XMS_ITS | Encounter Summary ---
Author Organization [employer] Address 75 [facility] 7t [place] [address] Care Team Providers Care Mold Stamper And Repairer Name Role Phone Sherry Ward MD Primary Care Provider [phone] Keith Robe PharmD Unavailable [phone] Encounter Details Date Type Department Care Team ([facility] st Contact Info) Description 11/02/[address] [facility] MEDICINE 230 [place], [place] [phone] Sherry Ward MD 230 [place], [place] [phone] Social History Tobacco Use Types Packs/Day Years [...] on filedocumented in this encounter Care Teams Mold Stamper And Repairer Relationship Specialty Start Date End Date Sherry Ward MD [address] [place] [address] PCP - General Family Medicine 11/20/18 12/17/23 Robe Parker, PharmD 230 [place] [address] Pharmacist Internal Medicine 06/15/23 documented as of this encounter
--- OUTSIDE RECORDS SUMMARY | 2025-02-12 13:55 | XMS_ITS | Encounter Summary ---
Author Organization [employer] Address [address] [place] [address] 7t [place] [address] Care Team Providers Care Chiller Operator Name Role Phone Sherry Ward MD Primary Care Provider [phone] Keith Robe PharmD Unavailable [phone] Encounter Details Date Type Department Care Team ([facility] st Contact Info) Description 01/23/2023 Orders Only [facility] MEDICINE 230 [place], [place] [phone] Nivia Serrato MD 230 [place] [address] Hyperkalemia (Primary Dx) Social History Tobacco Use [...] Hyperpotassemia documented in this encounter Care Teams Chiller Operator Relationship Specialty Start Date End Date Sherry Ward MD [address] [place], [place] [phone] PCP - General Family Medicine 11/20/18 12/17/23 Robe Parker, PharmD [address] [place] [address] Pharmacist Internal Medicine 06/15/23 documented as of this encounter
--- OUTSIDE RECORDS SUMMARY | 2025-02-12 13:55 | XMS_ITS | Encounter Summary ---
Author Organization [facility] Address 100 [facility] 200 [place] [address] Phone Care Team Providers Care Plumbing Designer Name Role Phone Joycelyn Brothers DO Primary Care Provider Ema ilva Encounter Details Date Type Department Care Team (Late st Contact Info) Description 05/29/2021 Orders Only [facility] [address] [place] [phone] Alex Garcia MD Chronic kidney disease stage [...] (HCC) documented in this encounter Care Teams Plumbing Designer Relationship Specialty Start Date End Date Joycelyn Brothers DO PCP - General 11/30/20 documented as of this encounter
--- OUTSIDE RECORDS SUMMARY | 2025-02-12 13:55 | XMS_ITS | Encounter Summary ---
Author Organization [employer] Address 75 [facility] 7t [place] [address] Care Team Providers Care Dynamite Reclaimer Name Role Phone Robe Parker PharmD Unavailable [phone] Reason for Visit * Reason Comments Med Refill Encounter Details Date Type Department Care Team ([facility] st Contact Info) Description 03/08/2024 Refill [facility] MEDICINE 230 [place], [place] [phone] Sherry Ward MD 230 [place], [place] [phone] Neuropathic pain Social History Tobacco Use Types [...] pain documented in this encounter Care Teams Dynamite Reclaimer Relationship Specialty Start Date End Date Robe Parker, IrisD [address] [place] [address] Pharmacist Internal Medicine 06/15/23 documented as of this encounter
--- OUTSIDE RECORDS SUMMARY | 2025-02-12 13:55 | XMS_ITS | Encounter Summary ---
Author Organization [facility] Address [address] [place] [address] Phone Care Team Providers Care Assembler Mechanical Ordnance Name Role Phone Joycelyn Brothers DO Primary Care Provider Unava ilable Encounter Details Date Type Department Care Team (Late st Contact Info) Description 11/08/2022 Telephone [facility] [address] [place] [address] Alex Garcia MD Social History [...] She also wants to add that his phytopathologist started him on digoxin 0.1 mg daily. Please advise Thank you CB# [phone] documented in this encounter Plan of Treatment Not on file documented as of this encounter Visit Diagnoses Not on filedocumented in this encounter Care Teams Assembler Mechanical Ordnance Relationship Specialty Start Date End Date Joycelyn Brothers DO PCP - General 11/30/20 documented as of this encounter
--- OUTSIDE RECORDS SUMMARY | 2025-02-12 13:55 | XMS_ITS | Encounter Summary ---
Author Organization [employer] Address 75 [facility] 7t [place] [address] Care Team Providers Care Automotive Parts Interpreter Name Role Phone Sherry Ward MD Primary Care Provider [phone] Keith Robe PharmD Unavailable [phone] Encounter Details Date Type Department Care Team (Late st Contact Info) Description 11/02/2023 Orders Only [facility] MEDICINE 230 [place], [place] [phone] Sherry Ward MD 230 [place], [place] [phone] Left foot pain (Primary Dx) Social History [...] limb documented in this encounter Care Teams Automotive Parts Interpreter Relationship Specialty Start Date End Date Sherry Ward MD [address] [place] [address] PCP - General Family Medicine 11/20/18 12/17/23 Robe Parker, IrisD [address] [place] [address] Pharmacist Internal Medicine 06/15/23 documented as of this encounter
--- OUTSIDE RECORDS SUMMARY | 2025-02-12 13:55 | XMS_ITS | Encounter Summary ---
Author Organization [employer] Address [address] [place] [address] 7t [place] [address] Care Team Providers Care Cad Designer Drafter Name Role Phone Sherry Ward MD Primary Care Provider [phone] Robe Parker PharmD Unavailable [phone] Reason for Visit * Reason Onset Date Comments Anticoagulation 12/21/2022 Encounter Details Date Type Department Care Team ([facility] st Contact Info) Description 12/21/2022 Telephone [facility] MEDICINE 230 [place], [place] [phone] Sherry Ward MD 230 [place], [place] [phone] Anticoagulation Social History Tobacco Use Types Packs/Day [...] call received at this time. Katy [place] [facility] [place] that Pt. INR is 1.4 Warfarin dose today 7.5mg 5mg abd Monday 2.5 mg Monday and 5mg Monday Recheck Monday. Please call Katy CURRAN if needed. documented in this encounter Plan of Treatment Not on file documented as of this encounter Visit Diagnoses Not on filedocumented in this encounter Care Teams Cad Designer Drafter Relationship Specialty Start Date End Date Sherry Ward MD [address] [place] [address] PCP - General Family Medicine 11/20/18 12/17/23 Robe Parker, PharmD [address] [place] [address] Pharmacist Internal Medicine 06/15/23 documented as of this encounter
== END 2025-02-12 14:00 | disposition home or self-care (01) ==
LOC: HO.ACS 11:28
PROVIDERS: PCP Physician Assistant; Visit Provider Internal Medicine Medical Oncology
DX: Z79.01 Long term (current) use of anticoagulants (principal)

== ENCOUNTER → 2025-02-12 11:28 | Outpatient (BNVA) | payer OTHER, SELFPAY | PROVIDERS: PCP Physician Assistant; Visit Provider Internal Medicine Medical Oncology | DX: I48.0 Paroxysmal atrial fibrillation (principal); Z79.01 Long term (current) use of anticoagulants; Z51.81 Encounter for therapeutic drug level monitoring | CPT/HCPCS: 85610; 99211 ==

== ENCOUNTER 2025-03-03 12:31 | Outpatient (AMB) | payer OTHER, SELFPAY ==
[2025-03-03 12:46] VITALS: BMI 29.7
--- NOTE | 2025-03-03 12:46 | MHC.AMNUTRGE ---
VS Expanded 03/03/25 12:46 03/03/25 14:54 Height 5 ft 6 in 5 ft 6 in Weight 184 lb 1.376 oz 184 lb BMI 29.7 29.7 Intake Visit Reasons: CKD diet/ Low potassium diet Allergies lisinopril [LISINOPRIL] Allergy (Severe, Verified 02/12/25 11:32) ACUTE KIDNEY INJURY oxycodone [Percocet] Allergy (Intermediate, Verified 02/12/25 11:32) agitation codeine [CODEINE] Allergy (Unknown, Verified 02/12/25 11:32) AGITATION morphine [MORPHINE] Allergy (Unknown, Verified 02/12/25 11:32) AGITATION, confusion From PERCOCET Allergy (Unknown, Uncoded 01/29/25 11:21) AGITATION Nutrition Presentation Details: Pt presents for MNT for low potassium diet concept Pt has CKD stage 5 Pt reports typical meal intake B: Bread with butter, coffee with 1/2, 1/2 L : Sand (ham/cheese) or root veg with fish or burger/fries/soda D rice/beans chicken or fish fillet or rice cereal with half and half snack: crackers or coffee with half and half BS Monitoring Most Recent Diabetes Results: Creatinine 4.42 mg/dL (0.5-1.4) H* 02/05/25 Blood Urea Nitrogen 85 mg/dL (9-16) H 02/05/25 Sodium 140 mmol/L (135-145) 02/05/25 Potassium 5.6 mmol/L (3.3-5.1) H 02/05/25 Chloride 107 mmol/L (96-108) 02/05/25 Carbon Dioxide 26 mmol/L (22-29) 02/05/25 Calcium 9.3 mg/dL (8.4-10.2) 02/05/25 TZV-Lqbmsdo-Pe.Jeor Equation Height: 5 ft 6 in Weight: 184 lb Resting Metabolic Rate: 1522.45 Calculated Activity Level: Mild Activity Calories Needed to Maintain Weight: 2093.37 Diagnosis Nutrition problem #1: altered nutrition labs As related to (etiology) #1: diagnosis As evidenced by (sign/symptom) #1: knowledge deficit of diet [facility] Medical History Allergies Sinus bradycardia Pre-op examination Annual physical exam History of TIA (transient ischemic attack) Gout Personal history of nicotine dependence Chronic kidney disease, stage 3 unspecified Benign prostatic hyperplasia with lower urinary tract symptoms HTN (hypertension) CAD (coronary artery disease) Paroxysmal atrial fibrillation Surgical History Stented coronary artery Hx of colonoscopy Hx of cardiac cath Hx of cystoscopy History of esophagogastroduodenoscopy (EGD) Hx of cataract extraction Family History Mother CAD (coronary artery disease) Diabetes HTN (hypertension) Father CAD (coronary artery disease) Diabetes HTN (hypertension) Social History Household Members: None Housing: Apartment Do you presently have visiting nurse or other home services: No Alcohol intake: former Patient Tobacco Use Status: Former Tobacco user Tobacco use type: Cigarette Years Smoked: 40 +/- e-Cigarette/Vaping Use: Never Used Second Hand Smoke Exposure: No service: No Current occupational status: retired and disabled Cognitive needs: No Hearing needs: No Vision needs: Yes Assessment & Plan Assessment & Plan (1) CKD (chronic kidney disease) stage 5, GFR less than 15 ml/min: Code(s): N18.5 - Chronic kidney disease, stage 5 Category: Medical Plan: Instruct Pt on low potassium food sources and variety in diet diet plan consisting of 2500 -3000 mg K /day Patient Instructions: Choose low potassium food sources , see list of food options Coding Level of Care Code Nutr Indiv Intake (04843) Diagnoses CKD (chronic kidney disease) stage 5, GFR less than 15 ml/min N18.5 Time Spent (min) 30
--- OUTSIDE RECORDS SUMMARY | 2025-03-03 14:31 | XMS_ITS | Encounter Summary ---
Author Organization [facility] Address 100 [facility] 200 [place] [address] Phone Care Team Providers Care Market Relationship Manager Name Role Phone Joycelyn Brothers DO Primary Care Provider Ema ilva Encounter Details Date Type Department Care Team (Late st Contact Info) Description 05/29/2021 Orders Only [facility] [address] [place] [phone] Alex Garcia MD Chronic kidney disease stage [...] (HCC) documented in this encounter Care Teams Market Relationship Manager Relationship Specialty Start Date End Date Joycelyn Brothers DO PCP - General 11/30/20 documented as of this encounter
--- OUTSIDE RECORDS SUMMARY | 2025-03-03 14:31 | XMS_ITS | Encounter Summary ---
Author Organization [employer] Address [address] [place] [address] 7t [place] [address] Care Team Providers Care Security Assurance Specialist Name Role Phone Sherry Ward MD Primary Care Provider [phone] Keith Robe PharmD Unavailable [phone] Encounter Details Date Type Department Care Team ([facility] st Contact Info) Description 01/23/2023 Orders Only [facility] MEDICINE 230 [place], [place] [phone] Nivia Serrato MD 230 [place] [address] Hyperkalemia (Primary Dx) Social History Tobacco Use [...] Hyperpotassemia documented in this encounter Care Teams Security Assurance Specialist Relationship Specialty Start Date End Date Sherry Ward MD 230 [place], [place] [phone] PCP - General Family Medicine 11/20/18 12/17/23 Robe Parker, PharmD [address] [place] [address] Pharmacist Internal Medicine 06/15/23 documented as of this encounter
--- OUTSIDE RECORDS SUMMARY | 2025-03-03 14:31 | XMS_ITS | Encounter Summary ---
Author Organization [facility] Address [address] [place] [address] Phone Care Team Providers Care Supply Chain Project Manager Name Role Phone Joycelyn Brothers DO Primary Care Provider Unava ilable Encounter Details Date Type Department Care Team (Late st Contact Info) Description 11/08/2022 Telephone [facility] [address] [place] [address] Alex Garcia MD Social History [...] She also wants to add that his casting chipper started him on digoxin 0.1 mg daily. Please advise Thank you CB# [phone] documented in this encounter Plan of Treatment Not on file documented as of this encounter Visit Diagnoses Not on filedocumented in this encounter Care Teams Supply Chain Project Manager Relationship Specialty Start Date End Date Joycelyn Brothers DO PCP - General 11/30/20 documented as of this encounter
--- OUTSIDE RECORDS SUMMARY | 2025-03-03 14:31 | XMS_ITS | Encounter Summary ---
Author Organization [employer] Address 75 [facility] 7t [place] [address] Care Team Providers Care Solar Sales Manager Name Role Phone Robe Parker PharmD Unavailable [phone] Reason for Visit * Reason Comments Med Refill Encounter Details Date Type Department Care Team ([facility] st Contact Info) Description 03/11/2024 Refill [facility] MEDICINE 230 [place], [place] [phone] Sherry Ward MD 230 [place], [place] [phone] Neuropathic pain Social History Tobacco Use Types [...] pain documented in this encounter Care Teams Solar Sales Manager Relationship Specialty Start Date End Date Robe Parker, IrisD [address] [place] [address] Pharmacist Internal Medicine 06/15/23 documented as of this encounter
--- OUTSIDE RECORDS SUMMARY | 2025-03-03 14:31 | XMS_ITS | Encounter Summary ---
Author Organization [employer] Address 75 [facility] 7t [place] [address] Care Team Providers Care Senior Telecommunications Technician Name Role Phone Robe Parker PharmD Unavailable [phone] Reason for Visit * Reason Comments Med Refill Encounter Details Date Type Department Care Team ([facility] st Contact Info) Description 09/26/2024 Refill [facility] MEDICINE 230 [place], [place] [phone] Sherry Ward MD 230 [place], [place] [phone] Dyslipidemia Social History Tobacco Use Types Packs/Day [...] hyperlipidemia documented in this encounter Care Teams Senior Telecommunications Technician Relationship Specialty Start Date End Date Robe Parker PharmD [address] [place] [address] Pharmacist Internal Medicine 06/15/23 documented as of this encounter
--- OUTSIDE RECORDS SUMMARY | 2025-03-03 14:31 | XMS_ITS | Encounter Summary ---
Author Organization [employer] Address [address] [facility] 7t [place] [address] Care Team Providers Care Voucher Examiner Name Role Phone Robe Parker PharmD Unavailable [phone] Reason for Visit * Reason Comments Med Refill Encounter Details Date Type Department Care Team ([facility] st Contact Info) Description 03/08/2024 Refill [facility] MED[facility]INE 230 [place], [place] [phone] Sherry Ward MD 230 [place], [place] [phone] Neuropathic pain Social History Tobacco Use Types [...] pain documented in this encounter Care Teams Voucher Examiner Relationship Specialty Start Date End Date Robe Parker, IrisD [address] [place] [address] Pharmacist Internal Medicine 06/15/23 documented as of this encounter
--- OUTSIDE RECORDS SUMMARY | 2025-03-03 14:31 | XMS_ITS | Encounter Summary ---
Author Organization [employer] Address 75 [facility] 7t [place] [address] Care Team Providers Care Firearms Inspector Name Role Phone Sherry Ward MD Primary Care Provider [phone] Parker Robe PharmD Unavailable [phone] Reason for Visit * Reason Onset Date Comments Lab Request 01/16/2023 Patient walked i n requesting for lab examination to see potassium levels. Patient has been on kayexalate for a month already and would like to see how his levels are doing. Encounter Details Date Type Department Care Team (Late st Contact Info) Description 01/16/2023 Telephone [facility] MEDICINE 230 [place] [address] Sherry Ward MD 230 [place], [place] [phone] Lab Request (Patient walked in requesting for [...] he wants [place] get them [place] [facility] Informed we would have to [...] on filedocumented in this encounter Care Teams Firearms Inspector Relationship Specialty Start Date End Date Sherry Ward MD [address] [place] [phone] PCP - General Family Medicine 11/20/18 12/17/23 Robe Parker, PharmD 230 [place] [address] Pharmacist Internal Medicine 06/15/23 documented as of this encounter
--- OUTSIDE RECORDS SUMMARY | 2025-03-03 14:31 | XMS_ITS | Encounter Summary ---
Author Organization [employer] Address [address] [place] [address] 7t [place] [address] Care Team Providers Care Printing Equipment Mechanic Apprentice Name Role Phone Sherry Ward MD Primary Care Provider [phone] Robe Parker PharmD Unavailable [phone] Reason for Referral * Imaging (Routine) - Closed Specialty Diagnoses / Procedures Referred By Contac t Referred To Contact Diagnoses Vertigo Ischemic heart disease Chronic atrial fibrillation (CMS/HCC) Essential hypertension Procedures Mr Brain w/ and w/o Contrast Sherry Ward MD 230 [place] [address] Phone: tel: fax: [facility] [place] [place] MRI and CT Scan [address] [place], [place] Phone: tel: fax: Referral ID Status Reason Start Date Expiration Date Visits Re quested Visits Authorized [id number] Closed 11/17/2022 11/17/2023 1 1 Encounter Details Date Type Department Care Team (Late st Contact Info) Description 11/08/2022 Orders Only [facility] MED[facility]INE 230 [place], [place] [phone] Sherry Ward MD [address] [place], [place] [phone] Vertigo (Primary Dx); Ischemic heart disease; Chronic [...] hypertension documented in this encounter Care Teams Printing Equipment Mechanic Apprentice Relationship Specialty Start Date End Date Sherry Ward MD 230 [place] [address] PCP - General Family Medicine 11/20/18 12/17/23 Robe Parker, IrisD [address] [place] [address] Pharmacist Internal Medicine 06/15/23 documented as of this encounter
--- OUTSIDE RECORDS SUMMARY | 2025-03-03 14:31 | XMS_ITS | Clinical Summary ---
Author Organization [employer] Address [address] [place] [address] 7t [place] [address] Care Team Providers Care Practice Director Name Role Phone Robe Parker PharmD Unavailable [phone] Allergies Active Allergy Reactions Criticality Noted Date [...] 1 3 Active Lancets (OneTouch Delica Plus Papzxx28G) [facility] Check blood sugar once daily 100 each 11 3 Active Blood Glucose Monitoring Suppl (ONE TOUCH ULTRA 2) w/Device kitIndications:T ype 2 diabetes mellitus with stage 4 chronic kidney disease, without long-term current use of insulin ([facility]) 1 kit Once daily. 1 kit 3 [...] taking febuxostat 40 mg daily prescribed by service worker helper - continue febuxostat 40 mg daily - [...] fibrilation - medication: warfarin - monitored by [facility] - most recent INR 2.2 on 10/20/23 - continue current treatment plan Assessment & Plan (03/21/2023 11:52 AM EDT): - indication: Atrial fibrilation - medication: warfarin - monitored by [facility] - most recent INR 1.6 [...] Assessment & Plan (11/05/2023 4:30 PM EST): -Lead Die Molder: Dr. Roland, last seen in Sep 2023 -Baseline SCr 2.0-2.4; eGFR 27-32, K 4.9-5.4 -Avoid nephrotoxic drugs/substances and behaviors, including NSAIDs use. -Renal dose medications. Assessment & Plan (03/13/2023 1:36 PM EDT): -Lead Die Molder: Dr. Roland, last seen in 12/27/21 -Baseline SCr 2.4-2.8; eGFR 22-26, CrCl 28.5 -Most recent lab: 08/05/22 K 5.2, BUN 46, SCr 2.48; eGFR 26 -Avoid nephrotoxic drugs/substances and behaviors, including NSAIDs use. -Renal dose medications. Assessment & Plan (12/19/2022 1:28 PM EST): -Lead Die Molder: Dr. Roland, last seen in 12/27/21 -Baseline SCr 2.4-2.8; eGFR 22-26, CrCl 28.5 -Most recent lab: 08/05/22 K 5.2, BUN 46, SCr 2.48; eGFR 26 -Avoid nephrotoxic drugs/substances and behaviors, including NSAIDs use. -Renal dose medications. Assessment & Plan (11/07/2022 4:55 AM EST): -Lead Die Molder: Dr. Roland, last seen in 12/27/21 -Baseline SCr 2.4-2.8; eGFR 22-26, CrCl 28.5 -Most recent lab: 08/05/22 K 5.2, BUN 46, SCr 2.48; eGFR 26 -Avoid nephrotoxic drugs/substances and behaviors, including NSAIDs use. -Renal dose medications. Chronic interstitial nephritis 04/02/2021 Proteinuria 04/02/2021 Ischemic heart disease 04/30/2018 Assessment & Plan (11/05/2023 4:06 PM EST): -Game Protector, Dr. Cain, seen in April 2023 -TIA [...] Assessment & Plan (03/13/2023 1:29 PM EDT): -Game Protector, Dr. Cain, seen on 11/10/22 -TIA in January 2018. Dx Afib. Started on Coumadin. -03/14/18 BRITTANY to distal RCA. Completed uninterrupted Plavix and Coumadin therapy for 1 year. Plan was to swithc Plavix to ASA. Pt is not on ASA or Plavix at this time because his CAD is stable per river transportation worker. - Last echo in 12/28/21: Normal LV function, EF 55-60%. slight decrease from last echo. mild GERD reguigitation -Continue current medications Assessment & Plan (12/25/2022 7:27 AM EST): -Game Protector, Dr. Cain, seen on 11/10/22 -TIA in January 2018. Dx Afib. Started on Coumadin. -03/14/18 BRITTANY to distal RCA. Completed uninterrupted Plavix and Coumadin therapy for 1 year. Plan was to swithc Plavix to ASA. Pt is not on ASA or Plavix at this time because his CAD is stable per river transportation worker. - Last echo in 12/28/21: Normal LV function, EF 55-60%. slight decrease from last echo. mild GERD reguigitation -Continue current medications Assessment & Plan (11/07/2022 5:02 AM EST): -Game Protector, Dr. Cain, seen on 05/19/22 -TIA in January 2018. Dx Afib. Started on Coumadin. -03/14/18 BRITTANY to distal RCA. Completed uninterrupted Plavix and Coumadin therapy for 1 year. Plan was to swithc Plavix to ASA. Pt is not on ASA or Plavix at this time because his CAD is stable per river transportation worker. - Last echo in 12/28/21: Normal LV [...] whether he is bradycardia and tachycardia -his river transportation worker recommends rate control rather than rhythm control - Continue rate control with metoprolol tartrate 100 mg bid - Continue digoxin 125 mcg daily - Continue warfarin, which is monitored by [facility]tico[facility] -- Treatment Hx: --Previously on [...] whether he is bradycardia and tachycardia -his river transportation worker recommends rate control rather than rhythm control - Continue rate control with metoprolol tartrate 100 mg bid - Continue digoxin 125 mcg daily - Continue warfarin, which is monitored by [facility] Anticoagulation clinic -- Treatment Hx: --Previously on [...] wheter he is bradycardiac and tachycardiac -his river transportation worker recommends rate control rather than rhythm control - Continue rate control with metoprolol tartrate 100 mg bid - Continue digoxin 125 mcg daily - Continue warfarin, which is monitored by [facility] Anticoagulation [facility] -- Treatment Hx: --Previously on [...] bradycardia; ACEI was discontinued due to recurrent GONZLAO and hyperkalemia - Check home BP everyday [...] microalbuminuria due to type 2 diabetes mellitus ([facility]) 12/25/2014 Type 2 diabetes mellitus 12/25/2014 Assessment [...] Logan -Pt requests to be referred to [facility] where his son goes Assessment & [...] wheter he is bradycardiac and tachycardiac -his river transportation worker recommends rate control rather than rhythm control [...] decreased -Continue Coumadin, which is monitored by [facility] anticoagulation clinic. -Holter monitor on 04/13/22 showed average HR 61 bpm, sinus. A-fib 36%. -Holter monitor on 09/08/22 showed average HR 101 bpm, baseline A-fib, HR > 100 for 67% period -Pt states he has been taking digoxin. Will confirm it with river transportation worker. Mild intermittent asthma 09/01/201503/2023 Immunizations Name Administration [...] disease, without long-term current use of insulin ([facility]) HM COLONOSCOPY Routine 04/22/2019 from Last 3 Months or Most Recently Relevant to Health Maintenance Results * (ABNORMAL) Lipid Panel with Reflex to Direct LDL (10/30/2023 2:57 PM EST) Triglycerides 433(H) <150 mg/dL [facility] Comment:Desirable Triglyceri de: less than 150 mg/dLBorderline High Triglyceride 150-199 mg/dLHigh Triglyceride: 200-499 mg/dLVery High Triglyceride: greater than or equal to 5OO mg/dL Cholesterol 266(H) <200 mg/dL [facility] Comment:Desirable Cholestero l: less than 200 mg/dLBorderline High Cholesterol: 200-239 mg/dLHigh Cholesterol: greater than 239 mg/dL LDL Cholesterol Calculated TNP <100 mg/dL [facility] Comment:Unable to calculate the LDL. The formula of Friedwald,Olsen, and Stefanie is only valid if the triglycerides areless than 400 mg/dl. HDL Cholesterol 28(L) >40 mg/dL [facility] Comment:Desirable HDL: great er than 40 mg/dL Note: This HDL assay may give artificially low results in patients with liver disease. Blood 10/30/2023 2:57 PM EST 10/30/2023 3:58 PM EST Sherry Ward MD LAB BLOOD ORDERABLES Final Resul t [facility] [address] [place] [phone] * (ABNORMAL) POCT glycosylated hemoglobin (Hgb A1c) (10/30/2023 2:23 PM EST) Hemoglobin A1C 7.1(A) 4.0 - 6.0 % QC Media Lot # [id number] Lot# Expiration Date Blood Capillary blood specimen / Unknown 10/30/2023 2:23 PM EST Sherry Ward MD POINT OF CARE TEST ENTER/EDIT OR DERABLES Final Result * Hm Colonoscopy (04/22/2019) [facility] Colonoscopy Normal Normal us Historical Provider MD HEALTH MAINTENANCE Final Result from Last 3 Months or Most Recently Relevant to Health Maintenance Insurance [facility] STAND[facility] Care Teams Practice Director Relationship Specialty Start Date End Date Robe Parker PharmD [address] [place] [address] Pharmacist Internal Medicine 06/15/23
--- OUTSIDE RECORDS SUMMARY | 2025-03-03 14:31 | XMS_ITS | Clinical Summary ---
Author Organization [facility] Address [address] [place] [address] Phone Care Team Providers Care Office Runner Name Role Phone Joycelyn Brothers DO Primary [...] fibrilation - medication: warfarin - monitored by [facility] Antico[facility] - most recent INR 1.6 [...] 04/02/2021 Overview (01/26/2024): Last Assessment & Plan: -Finance Mgr: Dr. Roland, last seen in 12/27/21 -Baseline SCr 2.4-2.8; eGFR 22-26, CrCl 28.5 -Most recent lab: 08/05/22 K 5.2, BUN 46, SCr 2.48; eGFR 26 -Avoid nephrotoxic drugs/substances and behaviors, including NSAIDs use. -Renal dose medications. Tinea pedis 04/30/2018 Ischemic heart disease 04/30/2018 Overview (01/26/2024): Last Assessment & Plan: -Cash Grain Farmer, Dr. Cain, seen on 11/10/22 -TIA in January 2018. Dx Afib. Started on Coumadin. -03/14/18 BRITTANY to distal RCA. Completed uninterrupted Plavix and Coumadin therapy for 1 year. Plan was to swithc Plavix to ASA. Pt is not on ASA or Plavix at this time because his CAD is stable per lockstitcher. - Last echo in 12/28/21: Normal LV function, EF 55-60%. slight decrease from last echo. mild GERD reguigitation -Continue current medications History of placement of stent for coronary arter y disease 04/30/2018 Chronic atrial fibrillation 02/09/2018 Overview (01/26/2024): Last Assessment & Plan: A-fib today, rate controlled. pt is usually asymptomatic whether he is bradycardia and tachycardia -his lockstitcher recommends rate control rather than rhythm control - Continue rate control with metoprolol tartrate 100 mg bid - Continue digoxin 125 mcg daily - Continue warfarin, which is monitored by [facility] Anticoagulation clinic -- Treatment Hx: --Previously on [...] Diabetes: Visual Foot Exam 06/26/2023 Influenza Vaccine (Season Ended) 2025 09/24/2019, 08/13/2018, 09/06/2017, Additional history exists Hepatitis B Vaccine Aged Out 09/20/2010, 04/14/2010, 03/16/2010 No longer eligible based on patient's age to complete this topic Pneumococcal Vaccine: 50+ Years Completed 03/21/2016, 06/18/2015, 04/14/2010 Pneumococcal Vaccine: Peds (0 to 5 Years) and At-Risk Patients (6 to 49 Years) Discontinued 03/21/2016, 06/18/2015, 04/14/2010 Insurance [facility] ([id number]) [address] [place] [phone] [facility] [employer] ([id number]) Care Teams Office Runner Relationship Specialty Start Date End Date Joycelyn Brothers DO PCP - General 11/30/20
--- OUTSIDE RECORDS SUMMARY | 2025-03-03 14:31 | XMS_ITS | Encounter Summary ---
Author Organization [employer] Address [address] [place] [address] 7t [place] [address] Care Team Providers Care Tso Name Role Phone Sherry Ward MD Primary Care Provider [phone] Robe Parker PharmD Unavailable [phone] Encounter Details Date Type Department Care Team (Late st Contact Info) Description 11/04/2022 Orders Only [facility] MEDICINE 230 [place] [address] Sharon Ko, RN Social History Tobacco Use [...] on filedocumented in this encounter Care Teams Tso Relationship Specialty Start Date End Date Sherry Ward MD 230 [place] [address] PCP - General Family Medicine 11/20/18 12/17/23 Robe Parker, PharmD [address] [place] [address], [place] [address] Pharmacist Internal Medicine 06/15/23 documented as of this encounter
--- OUTSIDE RECORDS SUMMARY | 2025-03-03 14:31 | XMS_ITS | Encounter Summary ---
Author Organization [employer] Address 75 [facility] 7t [place] [address] Care Team Providers Care Sieve Repairer Name Role Phone Robe Parker PharmD Unavailable Reason for Visit * Reason Comments Med Refill Encounter Details Date Type Department Care Team ([facility] st Contact Info) Description 08/05/[address] [facility] MEDICINE 230 [place], [place] [phone] Sherry Ward MD 230 [place], [place] [phone] Social History Tobacco Use Types Packs/Day Years [...] on filedocumented in this encounter Care Teams Sieve Repairer Relationship Specialty Start Date End Date Robe Parker, IrisD [address] [place] [address] Pharmacist Internal Medicine 06/15/23 documented as of this encounter
--- OUTSIDE RECORDS SUMMARY | 2025-03-03 14:31 | XMS_ITS | Encounter Summary ---
Author Organization [employer] Address [address] [facility] 7t [place] [address] Care Team Providers Care Head Irrigator Name Role Phone Robe Parker PharmD Unavailable [phone] Reason for Visit * Reason Comments Med Refill Encounter Details Date Type Department Care Team ([facility] st Contact Info) Description 05/07/2024 Refill [facility] MEDICINE 230 [place], [place] [phone] Sherry Ward MD 230 [place], [place] [phone] Social History Tobacco Use Types Packs/Day Years [...] on filedocumented in this encounter Care Teams Head Irrigator Relationship Specialty Start Date End Date Robe Parker, IrisD [address] [place] [address] Pharmacist Internal Medicine 06/15/23 documented as of this encounter
--- OUTSIDE RECORDS SUMMARY | 2025-03-03 14:31 | XMS_ITS | Encounter Summary ---
Author Organization [employer] Address [address] [place] [address] 7t [place] [address] Care Team Providers Care Helicopter Officer Name Role Phone Sherry Ward MD Primary Care Provider [phone] Robe Parker PharmD Unavailable [phone] Reason for Visit * Reason Onset Date Comments Anticoagulation 12/21/2022 Encounter Details Date Type Department Care Team ([facility] st Contact Info) Description 12/21/2022 Telephone [facility] MEDICINE 230 [place], [place] [phone] Sherry Ward MD 230 [place], [place] [phone] Anticoagulation Social History Tobacco Use Types Packs/Day [...] call received at this time. Katy at [facility] reports today that Pt. INR is 1.4 Warfarin dose today 7.5mg 5mg abd Monday 2.5 mg Monday and 5mg Monday Recheck Monday. Please call Katy CURRAN if needed. documented in this encounter Plan of Treatment Not on file documented as of this encounter Visit Diagnoses Not on filedocumented in this encounter Care Teams Helicopter Officer Relationship Specialty Start Date End Date Sherry Ward MD [address] [place] [address] PCP - General Family Medicine 11/20/18 12/17/23 Robe Parker, PharmD [address] [place] [address] Pharmacist Internal Medicine 06/15/23 documented as of this encounter
--- OUTSIDE RECORDS SUMMARY | 2025-03-03 14:31 | XMS_ITS | Encounter Summary ---
Author Organization [employer] Address [address] [facility] 7t [place] [address] Care Team Providers Care Asset Protection Representative Name Role Phone Sherry Ward MD Primary Care Provider [phone] Keith Robe PharmD Unavailable [phone] Encounter Details Date Type Department Care Team ([facility] st Contact Info) Description 11/02/2023 Orders Only [facility] MEDICINE 230 [place], [place] [phone] Sherry Ward MD 230 [place], [place] [phone] Social History Tobacco Use Types Packs/Day Years [...] on filedocumented in this encounter Care Teams Asset Protection Representative Relationship Specialty Start Date End Date Sherry Ward MD [address] [place] [address] PCP - General Family Medicine 11/20/18 12/17/23 Robe Parker, PharmD [address] [place] [address] Pharmacist Internal Medicine 06/15/23 documented as of this encounter
--- OUTSIDE RECORDS SUMMARY | 2025-03-03 14:31 | XMS_ITS | Patient Health Record ---
Author Organization [facility] Address [address] [place] [address] Care Team Providers Care Ticket Agent Name Role Phone Joycelyn Brothers M.D. 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 [address] [place] [address] [phone] [id number] SEMAJ PATTERSON Self - patient is the insured Medical (General) History Medical History History ICD Code Kidney disease-followed by Dr. Tae johansen HTN Denies ND,CVA,Lung disease Hyperlipidemia Rx'd for H.pylori in 06/2012 [...]
--- OUTSIDE RECORDS SUMMARY | 2025-03-03 14:31 | XMS_ITS | Encounter Summary ---
Author Organization [employer] Address [address] [place] [address] 7t [place] [address] Care Team Providers Care Senior Scrum Master Name Role Phone Sherry Ward MD Primary Care Provider [phone] Parker Robe PharmD Unavailable [phone] Reason for Visit * Reason Onset Date Comments triage 11/25/2022 Encounter Details Date Type Department Care Team ([facility] st Contact Info) Description 11/25/2022 Telephone [facility] MEDICINE 230 [place], [place] [phone] Sherry Ward MD 230 [place], [place] [phone] triage Social History Tobacco Use Types Packs/Day [...] 11/25/2022 4:06 PM EST Triage call with [employer] [place] [id number] Pt reports son came over this morning to test with home test. Pt isn't sure if it is positive and is requesting medication. Pt reports has had Covid before . Pt is unable to come to [facility] today for further testing. Pt symptoms [...] filedocumented in this encounter Care Teams Senior Scrum Master Relationship Specialty Start Date End Date Sherry Ward MD 230 [place] [address] PCP - General Family Medicine 11/20/18 12/17/23 Robe Parker PharmD [address] [place] [address] Pharmacist Internal Medicine 06/15/23 documented as of this encounter
--- OUTSIDE RECORDS SUMMARY | 2025-03-03 14:31 | XMS_ITS | Encounter Summary ---
Author Organization [employer] Address [address] [facility] 7t [place] [address] Care Team Providers Care Spray Machine Loader Name Role Phone Sherry Ward MD Primary Care Provider [phone] Keith Robe PharmD Unavailable [phone] Encounter Details Date Type Department Care Team (Late st Contact Info) Description 11/02/2023 Orders Only [facility] MEDICINE 230 [place], [place] [phone] Sherry Ward MD 230 [place], [place] [phone] Left foot pain (Primary Dx) Social History [...] limb documented in this encounter Care Teams Spray Machine Loader Relationship Specialty Start Date End Date Sherry Ward MD 230 [place] [address] PCP - General Family Medicine 11/20/18 12/17/23 Robe Parker, IrisD 230 [place] [address] Pharmacist Internal Medicine 06/15/23 documented as of this encounter
--- OUTSIDE RECORDS SUMMARY | 2025-03-03 14:31 | XMS_ITS | Encounter Summary ---
Author Organization [employer] Address [address] [facility] 7t [place] [address] Care Team Providers Care Paraoptometric Name Role Phone Robe Parker PharmD Unavailable [phone] Reason for Visit * Reason Comments Med Refill Encounter Details Date Type Department Care Team ([facility] st Contact Info) Description 03/08/[address] [facility] MEDICINE 230 [place], [place] [phone] Roopa Unger ANP 230 [place], [place] [phone] Social History Tobacco Use Types Packs/Day Years [...] on filedocumented in this encounter Care Teams Paraoptometric Relationship Specialty Start Date End Date Robe Parker PharmD [address] [place] [address] Pharmacist Internal Medicine 06/15/23 documented as of this encounter
--- OUTSIDE RECORDS SUMMARY | 2025-03-03 14:31 | XMS_ITS | Encounter Summary ---
Author Organization [employer] Address [address] [facility] 7t [place] [address] Care Team Providers Care Dice Maker Name Role Phone Robe Parker PharmD Unavailable [phone] Reason for Visit * Reason Comments Med Refill Encounter Details Date Type Department Care Team ([facility] st Contact Info) Description 01/11/2024 Refill [facility] MEDICINE 230 [place], [place] [phone] Jaqui Chowdary MD 230 [place], [place] [phone] Social History Tobacco Use Types Packs/Day Years [...] on filedocumented in this encounter Care Teams Dice Maker Relationship Specialty Start Date End Date Robe Parker, IrisD [address] [place] [address] Pharmacist Internal Medicine 06/15/23 documented as of this encounter
[2025-03-03 14:54] VITALS: BMI 29.7
== END 2025-03-03 13:26 | disposition home or self-care (01) ==
LOC: HO.ENCR 12:36
PROVIDERS: PCP Physician Assistant; Visit Provider Dietitian, Registered
DX: N18.5 Chronic kidney disease, stage 5 (principal)

== ENCOUNTER → 2025-03-03 12:31 | Outpatient (BNVA) | payer OTHER, SELFPAY | PROVIDERS: PCP Physician Assistant; Visit Provider Dietitian, Registered | DX: N18.5 Chronic kidney disease, stage 5 (principal); Z71.3 Dietary counseling and surveillance | CPT/HCPCS: 97802 ==

== ENCOUNTER 2025-03-05 11:14 | Outpatient (AMB) | payer OTHER, SELFPAY ==
--- NOTE | 2025-03-05 11:26 | MHC.OFFVISCO ---
Intake Intake Visit Reasons: Anticoagulation Allergies lisinopril [LISINOPRIL] Allergy (Severe, Verified 03/05/25 11:21) ACUTE KIDNEY INJURY oxycodone [Percocet] Allergy (Intermediate, Verified 03/05/25 11:21) agitation codeine [CODEINE] Allergy (Unknown, Verified 03/05/25 11:21) AGITATION morphine [MORPHINE] Allergy (Unknown, Verified 03/05/25 11:21) AGITATION, confusion From PERCOCET Allergy (Unknown, Uncoded 03/05/25 11:21) AGITATION Medication List - Last Reconciled 03/05/25 by Lisa White RN amlodipine 2.5 mg PO DAILY atorvastatin 80 mg PO QAM cholecalciferol (vitamin D3) 25 mcg PO DAILY compression socks, large As directed febuxostat (Uloric) 40 mg PO DAILY fluticasone propionate 50 mcg/actuation 1 spray intranasal DAILY 30 days furosemide (Lasix) 40 mg PO QAM 90 days gabapentin 200 mg (2 x 100 mg) PO BEDTIME 30 days meclizine 25 mg PO TID PRN 30 days metoprolol tartrate 50 mg See Protocol PO BID 90 days prednisone 10 mg PO ONCE PRN simethicone 180 mg PO QID 30 days sodium zirconium cyclosilicate (Lokelma) 10 grams orally Every Monday and ; warfarin 7.5 mg See Protocol PO MO warfarin 5 mg See Protocol PO SUTUWETHFRSA Nursing Note INR 3.3-?? out of therapeutic range of 2-3 Medications and supplements reviewed Patient status: pt states missed a dose yesterday Medications or supplements: no changes Diet: same Denies any signs and symptoms of bleeding or clotting or unusual bruising Bleeding, bruising, clotting discussed Nutritional guidance given: eat a light green today Dose: pt states has been taking 7.5mg on monday only, cont reg dosing due to missed dose yesterday 5mg x 6, 7.5mg x 1 F/U INR Date : pt req 2 weeks?? Patient verbalizing understanding of instructions given. Anti-Coag Initial Assessment Social Hx Patient Tobacco Use Status: Former Tobacco user Tobacco use type: Cigarette alcohol intake: former Alcohol intake frequency: does not drink Coding Level of Care Code Est Patient Level 1 Diagnoses Current use of anticoagulant therapy Z79.01 Assessment & Plan Assessment & Plan (1) Current use of anticoagulant therapy: Code(s): Z79.01 - halfway (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
[2025-03-05 11:27] LABS: Prothrombin Time Whole Bld POC 39.8 sec (11.1-13.5); ~PT, ~INR - Anti Coag Clinic 3.3 (0.9-1.1)
--- OUTSIDE RECORDS SUMMARY | 2025-03-05 13:33 | XMS_ITS | Encounter Summary ---
Author Organization [employer] Address [address] [place] [address] 7t [place] [address] Care Team Providers Care Stereo Equipment Installer Name Role Phone Sherry Ward MD Primary Care Provider [phone] Robe Parker PharmD Unavailable [phone] Reason for Visit * Reason Onset Date Comments Anticoagulation 12/21/2022 Encounter Details Date Type Department Care Team ([facility] st Contact Info) Description 12/21/2022 Telephone [facility] MEDICINE 230 [place], [place] [phone] Sherry Ward MD 230 [place], [place] [phone] Anticoagulation Social History Tobacco Use Types Packs/Day [...] call received at this time. Katy at [facility] reports today that Pt. INR is 1.4 Warfarin dose today 7.5mg 5mg abd Monday 2.5 mg Monday and 5mg Monday Recheck Monday. Please call Katy CURRAN if needed. documented in this encounter Plan of Treatment Not on file documented as of this encounter Visit Diagnoses Not on filedocumented in this encounter Care Teams Stereo Equipment Installer Relationship Specialty Start Date End Date Sherry Ward MD [address] [place] [address] PCP - General Family Medicine 11/20/18 12/17/23 Robe Parker, PharmD [address] [place] [address] Pharmacist Internal Medicine 06/15/23 documented as of this encounter
--- OUTSIDE RECORDS SUMMARY | 2025-03-05 13:33 | XMS_ITS | Encounter Summary ---
Author Organization [facility] Address [address] [place] [address] Phone Care Team Providers Care Booth Operator Name Role Phone Joycelyn Brothers DO Primary Care Provider Unava ilable Encounter Details Date Type Department Care Team (Late st Contact Info) Description 11/08/2022 Telephone [facility] [address] [place] [address] Alex Garcia MD Social History [...] She also wants to add that his scheduling clerk started him on digoxin 0.1 mg daily. Please advise Thank you CB# [phone] documented in this encounter Plan of Treatment Not on file documented as of this encounter Visit Diagnoses Not on filedocumented in this encounter Care Teams Booth Operator Relationship Specialty Start Date End Date Joycelyn Brothers DO PCP - General 11/30/20 documented as of this encounter
--- OUTSIDE RECORDS SUMMARY | 2025-03-05 13:33 | XMS_ITS | Encounter Summary ---
Author Organization [employer] Address [address] [place] [address] 7t [place] [address] Care Team Providers Care Director Of Occupational Therapy Name Role Phone Sherry Ward MD Primary Care Provider [phone] Keith Robe PharmD Unavailable [phone] Encounter Details Date Type Department Care Team ([facility] st Contact Info) Description 01/23/2023 Orders Only [facility] MEDICINE 230 [place], [place] [phone] Nivia Serrato MD 230 [place] [address] Hyperkalemia (Primary Dx) Social History Tobacco Use [...] Hyperpotassemia documented in this encounter Care Teams Director Of Occupational Therapy Relationship Specialty Start Date End Date Sherry Ward MD 230 [place], [place] [phone] PCP - General Family Medicine 11/20/18 12/17/23 Robe Parker, PharmD [address] [place] [address] Pharmacist Internal Medicine 06/15/23 documented as of this encounter
--- OUTSIDE RECORDS SUMMARY | 2025-03-05 13:33 | XMS_ITS | Patient Health Record ---
Author Organization [facility] Address [address] [place] [address] Care Team Providers Care Solvent Station Attendant Name Role Phone Joycelyn Brothers M.D. 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 [address] [place] [address] [id number] SEMAJ PATTERSON Self - patient is the insured Medical (General) History Medical History History ICD Code Kidney disease-followed by Dr. Tae johansen HTN Denies CT,CVA,Lung disease Hyperlipidemia Rx'd for H.pylori in 06/2012 [...]
--- OUTSIDE RECORDS SUMMARY | 2025-03-05 13:33 | XMS_ITS | Clinical Summary ---
Author Organization [facility] Address [address] [facility] [address] [place] [address] Phone Care Team Providers Care Cellophane Wrapping Examiner Name Role Phone Joycelyn Brothers DO Primary [...] adenomatous polyp of colon 01/26/2024 Tinnitus 03/21/2023 senior living current use of anticoagulant Overview (01/26/2024): Last Assessment & Plan: - indication: Atrial fibrilation - medication: warfarin - monitored by [facility] Anticoagulation Clinic - most recent INR 1.6 [...] 04/02/2021 Overview (01/26/2024): Last Assessment & Plan: -Top Lift Scourer: Dr. Roland, last seen in 12/27/21 -Baseline SCr 2.4-2.8; eGFR 22-26, CrCl 28.5 -Most recent lab: 08/05/22 K 5.2, BUN 46, SCr 2.48; eGFR 26 -Avoid nephrotoxic drugs/substances and behaviors, including NSAIDs use. -Renal dose medications. Tinea pedis 04/30/2018 Ischemic heart disease 04/30/2018 Overview (01/26/2024): Last Assessment & Plan: -Film Sound Engineer, Dr. Cain, seen on 11/10/22 -TIA in January 2018. Dx Afib. Started on Coumadin. -03/14/18 BRITTANY to distal RCA. Completed uninterrupted Plavix and Coumadin therapy for 1 year. Plan was to swithc Plavix to ASA. Pt is not on ASA or Plavix at this time because his CAD is stable per escapement matcher. - Last echo in 12/28/21: Normal LV function, EF 55-60%. slight decrease from last echo. mild GERD reguigitation -Continue current medications History of placement of stent for coronary arter y disease 04/30/2018 Chronic atrial fibrillation 02/09/2018 Overview (01/26/2024): Last Assessment & Plan: A-fib today, rate controlled. pt is usually asymptomatic whether he is bradycardia and tachycardia -his escapement matcher recommends rate control rather than rhythm control - Continue rate control with metoprolol tartrate 100 mg bid - Continue digoxin 125 mcg daily - Continue warfarin, which is monitored by [facility] Anticoagulation clinic -- Treatment Hx: --Previously on [...] 49 Years) Discontinued 03/21/2016, 06/18/2015, 04/14/2010 Insurance [employer] ([id number]) [address] [place] [address] [facility] [employer] ([id number]) Care Teams Cellophane Wrapping Examiner Relationship Specialty Start Date End Date Joycelyn Brothers DO PCP - General 11/30/20
--- OUTSIDE RECORDS SUMMARY | 2025-03-05 13:33 | XMS_ITS | Encounter Summary ---
Author Organization [employer] Address 75 [facility] 7t [place] [address] Care Team Providers Care Postal Support Employee Name Role Phone Sherry Ward MD Primary Care Provider [phone] Parker Robe PharmD Unavailable [phone] Reason for Visit * Reason Onset Date Comments Lab Request 01/16/2023 Patient walked i n requesting for lab examination to see potassium levels. Patient has been on kayexalate for a month already and would like to see how his levels are doing. Encounter Details Date Type Department Care Team (Late st Contact Info) Description 01/16/2023 Telephone [facility] MEDICINE 230 [place] [address] Sherry Ward MD 230 [place], [place] [phone] Lab Request (Patient walked in requesting for [...] he wants to get them done at [facility]. Informed we would have to change the [...] filedocumented in this encounter Care Teams Postal Support Employee Relationship Specialty Start Date End Date Sherry Ward MD [address] [place] [address] PCP - General Family Medicine 11/20/18 12/17/23 Robe Parker, PharmD 230 [place] [address] Pharmacist Internal Medicine 06/15/23 documented as of this encounter
--- OUTSIDE RECORDS SUMMARY | 2025-03-05 13:34 | XMS_ITS | Encounter Summary ---
Author Organization [employer] Address [address] [place] [address] 7t [place] [address] Care Team Providers Care Fence Erector Name Role Phone Sherry Ward MD Primary Care Provider [phone] Robe Parker PharmD Unavailable [phone] Reason for Referral * Imaging (Routine) - Closed Specialty Diagnoses / Procedures Referred By Contac t Referred To Contact Diagnoses Vertigo Ischemic heart disease Chronic atrial fibrillation (CMS/HCC) Essential hypertension Procedures Mr Brain w/ and w/o Contrast Sherry Ward MD [address] [place] [address] Phone: tel: fax: [facility] MRI and CT Scan [address] [place], [place] Phone: tel: fax: Referral ID Status Reason Start Date Expiration Date Visits Re quested Visits Authorized [id number] Closed 11/17/2022 11/17/2023 1 1 Encounter Details Date Type Department Care Team (Late st Contact Info) Description 11/08/2022 Orders Only [facility] MEDICINE 230 [place], [place] [phone] Sherry Ward MD [address] [place], [place] [phone] Vertigo (Primary Dx); Ischemic heart disease; Chronic [...] hypertension documented in this encounter Care Teams Fence Erector Relationship Specialty Start Date End Date Sherry Ward MD [address] [place] [address] PCP - General Family Medicine 11/20/18 12/17/23 Robe Parker, IrisD [address] [place] [address] Pharmacist Internal Medicine 06/15/23 documented as of this encounter
--- OUTSIDE RECORDS SUMMARY | 2025-03-05 13:34 | XMS_ITS | Encounter Summary ---
Author Organization [employer] Address [address] [facility] 7t [place] [address] Care Team Providers Care Vessel Slagman Name Role Phone Robe Parker PharmD Unavailable Reason for Visit * Reason Comments Med Refill Encounter Details Date Type Department Care Team ([facility] st Contact Info) Description 03/11/2024 Refill [facility] MEDICINE 230 [place], [place] [phone] Sherry Ward MD 230 [place], [place] [phone] Neuropathic pain Social History Tobacco Use Types [...] pain documented in this encounter Care Teams Vessel Slagman Relationship Specialty Start Date End Date Robe Parker, IrisD [address] [place] [address] Pharmacist Internal Medicine 06/15/23 documented as of this encounter
--- OUTSIDE RECORDS SUMMARY | 2025-03-05 13:34 | XMS_ITS | Encounter Summary ---
Author Organization [employer] Address 75 [facility] 7t [place] [address] Care Team Providers Care Application Support Intern Name Role Phone Sherry Ward MD Primary Care Provider [phone] Keith Robe PharmD Unavailable [phone] Encounter Details Date Type Department Care Team (Late st Contact Info) Description 11/02/2023 Orders Only [facility] MEDICINE 230 [place], [place] [phone] Sherry Ward MD 230 [place], [place] [phone] Left foot pain (Primary Dx) Social History [...] limb documented in this encounter Care Teams Application Support Intern Relationship Specialty Start Date End Date Sherry Ward MD 230 [place] [address] PCP - General Family Medicine 11/20/18 12/17/23 Robe Parker, IrisD 230 [place] [address] Pharmacist Internal Medicine 06/15/23 documented as of this encounter
--- OUTSIDE RECORDS SUMMARY | 2025-03-05 13:34 | XMS_ITS | Encounter Summary ---
Author Organization [employer] Address [address] [facility] 7t [place] [address] Care Team Providers Care Wool Puller Name Role Phone Robe Parker PharmD Unavailable [phone] Reason for Visit * Reason Comments Med Refill Encounter Details Date Type Department Care Team ([facility] st Contact Info) Description 05/07/2024 Refill [facility] MEDICINE 230 [place], [place] [phone] Sherry Ward MD 230 [place], [place] [phone] Social History Tobacco Use Types Packs/Day Years [...] on filedocumented in this encounter Care Teams Wool Puller Relationship Specialty Start Date End Date Robe Parker, IrisD [address] [place] [address] Pharmacist Internal Medicine 06/15/23 documented as of this encounter
--- OUTSIDE RECORDS SUMMARY | 2025-03-05 13:34 | XMS_ITS | Encounter Summary ---
Author Organization [employer] Address [address] [place] [address] 7t [place] [address] Care Team Providers Care Development Consultant Name Role Phone Sherry Ward MD Primary Care Provider [phone] Parker Robe PharmD Unavailable [phone] Reason for Visit * Reason Onset Date Comments triage 11/25/2022 Encounter Details Date Type Department Care Team ([facility] st Contact Info) Description 11/25/2022 Telephone [facility] MEDICINE 230 [place], [place] [phone] Sherry Ward MD 230 [place], [place] [phone] triage Social History Tobacco Use Types Packs/Day [...] 11/25/2022 4:06 PM EST Triage call with [employer] [facility] [place] [id number] Pt reports son came over this morning to test with home test. Pt isn't sure if it is positive and is requesting medication. Pt reports has had Covid before . Pt is unable to come to [facility] today for further testing. Pt [...] on filedocumented in this encounter Care Teams Development Consultant Relationship Specialty Start Date End Date Sherry Ward MD 230 [place] [address] PCP - General Family Medicine 11/20/18 12/17/23 Robe Parker PharmD 230 [place] [address] Pharmacist Internal Medicine 06/15/23 documented as of this encounter
--- OUTSIDE RECORDS SUMMARY | 2025-03-05 13:34 | XMS_ITS | Encounter Summary ---
Author Organization [employer] Address [address] [facility] 7t [place] [address] Care Team Providers Care Machine Adjuster Helper Name Role Phone Sherry Ward MD Primary Care Provider [phone] Keith Robe PharmD Unavailable [phone] Encounter Details Date Type Department Care Team ([facility] st Contact Info) Description 11/02/2023 Orders Only [facility] MEDICINE 230 [place], [place] [phone] Sherry Ward MD 230 [place], [place] [phone] Social History Tobacco Use Types Packs/Day Years [...] filedocumented in this encounter Care Teams Machine Adjuster Helper Relationship Specialty Start Date End Date Sherry Ward MD 230 [place] [address] PCP - General Family Medicine 11/20/18 12/17/23 Robe Parker, PharmD 230 [place] [address] Pharmacist Internal Medicine 06/15/23 documented as of this encounter
--- OUTSIDE RECORDS SUMMARY | 2025-03-05 13:34 | XMS_ITS | Encounter Summary ---
Author Organization [employer] Address [address] [facility] 7t [place] [address] Care Team Providers Care Clinical Abstractor Name Role Phone Robe Parker PharmD Unavailable [phone] Reason for Visit * Reason Comments Med Refill Encounter Details Date Type Department Care Team ([facility] st Contact Info) Description 01/11/2024 Refill [facility] MEDICINE 230 [place], [place] [phone] Jaqui Chowdary MD 230 [place], [place] [phone] Social History Tobacco Use Types Packs/Day Years Used Date Smoking Tobacco: Former Cigarettes Passive Smoke Exposure: Past Smokeless Tobacco: Never Housing Stability Answer Date Recorded What is your housing situation today? I have hcase burch 09/09/[address] you [...] on filedocumented in this encounter Care Teams Clinical Abstractor Relationship Specialty Start Date End Date Robe Parker, IrisD [address] [place] [address] Pharmacist Internal Medicine 06/15/23 documented as of this encounter
--- OUTSIDE RECORDS SUMMARY | 2025-03-05 13:34 | XMS_ITS | Encounter Summary ---
Author Organization [employer] Address [address] [place] [address] 7t [place] [address] Care Team Providers Care Human Resources Professional Name Role Phone Sherry Wadr MD Primary Care Provider [phone] Robe Parker PharmD Unavailable [phone] Encounter Details Date Type Department Care Team (Late st Contact Info) Description 11/04/2022 Orders Only [facility] MEDICINE 230 [place] [address] Sharon Ko, RN Social History Tobacco Use [...] in this encounter Care Teams Human Resources Professional Relationship Specialty Start Date End Date Sherry Ward MD 230 [place] [address] PCP - General Family Medicine 11/20/18 12/17/23 Robe Parker, PharmD [address] [place] [address], [place] [address] Pharmacist Internal Medicine 06/15/23 documented as of this encounter
--- OUTSIDE RECORDS SUMMARY | 2025-03-05 13:34 | XMS_ITS | Encounter Summary ---
Author Organization [employer] Address [address] [facility] 7t [place] [address] Care Team Providers Care Press Helper Name Role Phone Robe Parker PharmD Unavailable [phone] Reason for Visit * Reason Comments Med Refill Encounter Details Date Type Department Care Team ([facility] st Contact Info) Description 08/05/2024 Refill [facility] MEDICINE 230 [place], [place] [phone] Sherry Ward MD 230 [place], [place] [phone] Social History Tobacco Use Types Packs/Day Years [...] on filedocumented in this encounter Care Teams Press Helper Relationship Specialty Start Date End Date Robe Parker, IrisD [address] [place] [address] Pharmacist Internal Medicine 06/15/23 documented as of this encounter
--- OUTSIDE RECORDS SUMMARY | 2025-03-05 13:34 | XMS_ITS | Encounter Summary ---
Author Organization [email or web address] Address 75 [facility] 7t [place] [address] Care Team Providers Care Machine Farmworker Name Role Phone Robe Parker PharmD Unavailable [phone] Reason for Visit * Reason Comments Med Refill Encounter Details Date Type Department Care Team ([facility] st Contact Info) Description 03/08/2024 Refill [facility] MEDICINE 230 [place], [place] [phone] Roopa Unger ANP 230 [place], [place] [phone] Social History Tobacco Use Types Packs/Day Years [...] filedocumented in this encounter Care Teams Machine Farmworker Relationship Specialty Start Date End Date Robe Parker PharmD [address] [place] [address] Pharmacist Internal Medicine 06/15/23 documented as of this encounter
--- OUTSIDE RECORDS SUMMARY | 2025-03-05 13:34 | XMS_ITS | Encounter Summary ---
Author Organization [employer] Address [address] [facility] 7t [place] [address] Care Team Providers Care Executive Vice President And Chief Operating Officer Name Role Phone Robe Parker PharmD Unavailable [phone] Reason for Visit * Reason Comments Med Refill Encounter Details Date Type Department Care Team ([facility] st Contact Info) Description 03/08/2024 Refill [facility] MEDICINE 230 [place], [place] [phone] Sherry Ward MD 230 [place], [place] [phone] Neuropathic pain Social History Tobacco Use Types [...] pain documented in this encounter Care Teams Executive Vice President And Chief Operating Officer Relationship Specialty Start Date End Date Robe Parker, IrisD [address] [place] [address] Pharmacist Internal Medicine 06/15/23 documented as of this encounter
--- OUTSIDE RECORDS SUMMARY | 2025-03-05 13:34 | XMS_ITS | Encounter Summary ---
Author Organization [employer] Address [address] [facility] 7t [place] [address] Care Team Providers Care Finished Cigar Maker Name Role Phone Robe Parker PharmD Unavailable [phone] Reason for Visit * Reason Comments Med Refill Encounter Details Date Type Department Care Team ([facility] st Contact Info) Description 09/26/2024 Refill [facility] MEDICINE [address] [place], [place] [phone] Sherry Ward MD [address] [place], [place] [phone] Dyslipidemia Social History Tobacco Use Types Packs/Day Years Used Date Smoking Tobacco: Former Cigarettes Passive Smoke Exposure: Past Smokeless Tobacco: Never Housing Stability Answer Date Recorded What is your housing situation today? I have chase ub[employer]ch 09/09/[address] you li [...] Pressure 149/92( 023 2:03 PM EST) No oRbe Parker, Gabby documented as of this encounter Visit Diagnoses Diagnosis Dyslipidemia Other and unspecified hyperlipidemia documented in this encounter Care Teams Finished Cigar Maker Relationship Specialty Start Date End Date Robe Parker PharmD [address] [place] [address] Pharmacist Internal Medicine 06/15/23 documented as of this encounter
--- OUTSIDE RECORDS SUMMARY | 2025-03-05 13:34 | XMS_ITS | Clinical Summary ---
Author Organization [employer] Address [address] [place] [address] 7t [place] [address] Care Team Providers Care Team Leader Surgery Name Role Phone Robe Parker PharmD Unavailable [phone] Allergies Active Allergy Reactions Criticality Noted Date [...] 1 3 Active Lancets (OneTouch Delica Plus [id number]) [facility] Check blood sugar once daily 100 each 11 3 Active Blood Glucose Monitoring Suppl (ONE TOUCH ULTRA 2) w/Device kitIndications:T ype 2 diabetes mellitus with stage 4 chronic kidney disease, without long-term current use of insulin ([facility]) 1 kit Once daily. 1 [...] taking febuxostat 40 mg daily prescribed by review coordinator - continue febuxostat 40 mg daily - [...] fibrilation - medication: warfarin - monitored by [facility] - most recent INR 2.2 on 10/20/23 - continue current treatment plan Assessment & Plan (03/21/2023 11:52 AM EDT): - indication: Atrial fibrilation - medication: warfarin - monitored by [facility] - most recent INR 1.6 [...] Assessment & Plan (11/05/2023 4:30 PM EST): -Cds Sales Advisor: Dr. Roland, last seen in Sep 2023 -Baseline SCr 2.0-2.4; eGFR 27-32, K 4.9-5.4 -Avoid nephrotoxic drugs/substances and behaviors, including NSAIDs use. -Renal dose medications. Assessment & Plan (03/13/2023 1:36 PM EDT): -Cds Sales Advisor: Dr. Roland, last seen in 12/27/21 -Baseline SCr 2.4-2.8; eGFR 22-26, CrCl 28.5 -Most recent lab: 08/05/22 K 5.2, BUN 46, SCr 2.48; eGFR 26 -Avoid nephrotoxic drugs/substances and behaviors, including NSAIDs use. -Renal dose medications. Assessment & Plan (12/19/2022 1:28 PM EST): -Cds Sales Advisor: Dr. Roland, last seen in 12/27/21 -Baseline SCr 2.4-2.8; eGFR 22-26, CrCl 28.5 -Most recent lab: 08/05/22 K 5.2, BUN 46, SCr 2.48; eGFR 26 -Avoid nephrotoxic drugs/substances and behaviors, including NSAIDs use. -Renal dose medications. Assessment & Plan (11/07/2022 4:55 AM EST): -Cds Sales Advisor: Dr. Roland, last seen in 12/27/21 -Baseline SCr 2.4-2.8; eGFR 22-26, CrCl 28.5 -Most recent lab: 08/05/22 K 5.2, BUN 46, SCr 2.48; eGFR 26 -Avoid nephrotoxic drugs/substances and behaviors, including NSAIDs use. -Renal dose medications. Chronic interstitial nephritis 04/02/2021 Proteinuria 04/02/2021 Ischemic heart disease 04/30/2018 Assessment & Plan (11/05/2023 4:06 PM EST): -Tamper Operator, Dr. Cain, seen in April 2023 -TIA [...] Assessment & Plan (03/13/2023 1:29 PM EDT): -Tamper Operator, Dr. Cain, seen on 11/10/22 -TIA in January 2018. Dx Afib. Started on Coumadin. -03/14/18 BRITTANY to distal RCA. Completed uninterrupted Plavix and Coumadin therapy for 1 year. Plan was to swithc Plavix to ASA. Pt is not on ASA or Plavix at this time because his CAD is stable per mercury cell cleaner. - Last echo in 12/28/21: Normal LV function, EF 55-60%. slight decrease from last echo. mild GERD reguigitation -Continue current medications Assessment & Plan (12/25/2022 7:27 AM EST): -Tamper Operator, Dr. Cain, seen on 11/10/22 -TIA in January 2018. Dx Afib. Started on Coumadin. -03/14/18 BRITTANY to distal RCA. Completed uninterrupted Plavix and Coumadin therapy for 1 year. Plan was to swithc Plavix to ASA. Pt is not on ASA or Plavix at this time because his CAD is stable per mercury cell cleaner. - Last echo in 12/28/21: Normal LV function, EF 55-60%. slight decrease from last echo. mild GERD reguigitation -Continue current medications Assessment & Plan (11/07/2022 5:02 AM EST): -Tamper Operator, Dr. Cain, seen on 05/19/22 -TIA in January 2018. Dx Afib. Started on Coumadin. -03/14/18 BRITTANY to distal RCA. Completed uninterrupted Plavix and Coumadin therapy for 1 year. Plan was to swithc Plavix to ASA. Pt is not on ASA or Plavix at this time because his CAD is stable per mercury cell cleaner. - Last echo in 12/28/21: Normal LV [...] whether he is bradycardia and tachycardia -his mercury cell cleaner recommends rate control rather than rhythm control - Continue rate control with metoprolol tartrate 100 mg bid - Continue digoxin 125 mcg daily - Continue warfarin, which is monitored by [facility] -- Treatment Hx: --Previously on [...] whether he is bradycardia and tachycardia -his mercury cell cleaner recommends rate control rather than rhythm control - Continue rate control with metoprolol tartrate 100 mg bid - Continue digoxin 125 mcg daily - Continue warfarin, which is monitored by [facility] -- Treatment Hx: --Previously on [...] wheter he is bradycardiac and tachycardiac -his mercury cell cleaner recommends rate control rather than rhythm control - Continue rate control with metoprolol tartrate 100 mg bid - Continue digoxin 125 mcg daily - Continue warfarin, which is monitored by [facility]tico[facility] -- Treatment Hx: --Previously on [...] microalbuminuria due to type 2 diabetes mellitus ([facility]) 12/25/2014 Type 2 diabetes mellitus [...] Logan -Pt requests to be referred to [facility] where his son goes Assessment & [...] wheter he is bradycardiac and tachycardiac -his mercury cell cleaner recommends rate control rather than rhythm control [...] decreased -Continue Coumadin, which is monitored by [facility] anticoagulation clinic. -Holter monitor on 04/13/22 showed average HR 61 bpm, sinus. A-fib 36%. -Holter monitor on 09/08/22 showed average HR 101 bpm, baseline A-fib, HR > 100 for 67% period -Pt states he has been taking digoxin. Will confirm it with mercury cell cleaner. Mild intermittent asthma 09/01/201503/2023 Immunizations Name Administration [...] disease, without long-term current use of insulin ([facility]) HM COLONOSCOPY Routine 04/22/2019 from Last 3 Months or Most Recently Relevant to Health Maintenance Results * (ABNORMAL) Lipid Panel with Reflex to Direct LDL (10/30/2023 2:57 PM EST) Triglycerides 433(H) <150 mg/dL [facility] Comment:Desirable Triglyceri de: less than 150 mg/dLBorderline High Triglyceride 150-199 mg/dLHigh Triglyceride: 200-499 mg/dLVery High Triglyceride: greater than or equal to 5OO mg/dL Cholesterol 266(H) <200 mg/dL [facility] Comment:Desirable Cholestero l: less than 200 mg/dLBorderline High Cholesterol: 200-239 mg/dLHigh Cholesterol: greater than 239 mg/dL LDL Cholesterol Calculated TNP <100 mg/dL [facility] Comment:Unable to calculate the LDL. The formula of Friedwald,Olsen, and Stefanie is only valid if the triglycerides areless than 400 mg/dl. HDL Cholesterol 28(L) >40 mg/dL [facility] Comment:Desirable HDL: great er than 40 mg/dL Note: This HDL assay may give artificially low results in patients with liver disease. Blood 10/30/2023 2:57 PM EST 10/30/2023 3:58 PM EST Sherry Ward MD LAB BLOOD ORDERABLES Final Resul t [facility] [address] [place] [phone] * (ABNORMAL) POCT glycosylated hemoglobin (Hgb A1c) (10/30/2023 2:23 PM EST) Hemoglobin A1C 7.1(A) 4.0 - 6.0 % QC Media Lot # [id number] Lot# Expiration Date Blood Capillary blood specimen / Unknown 10/30/2023 2:23 PM EST Sherry Ward MD POINT OF CARE TEST ENTER/EDIT OR DERABLES Final Result * Hm Colonoscopy (04/22/2019) [facility] Colonoscopy Normal Normal us Historical Provider MD HEALTH MAINTENANCE Final Result from Last 3 Months or Most Recently Relevant to Health Maintenance Insurance [facility] Care Teams Team Leader Surgery Relationship Specialty Start Date End Date Robe Parker PharmD [address] [place] [phone] Pharmacist Internal Medicine 06/15/23
--- OUTSIDE RECORDS SUMMARY | 2025-03-05 13:34 | XMS_ITS | Encounter Summary ---
Author Organization [facility] Address [facility] [address] [place] [address] Phone Care Team Providers Care Adobe Maker Name Role Phone Joycelyn Brothers DO Primary Care Provider Ema ilva Encounter Details Date Type Department Care Team (Late st Contact Info) Description 05/29/2021 Orders Only [facility] [address] [place] [id number] Alex Garcia MD Chronic kidney disease stage [...] (HCC) documented in this encounter Care Teams Adobe Maker Relationship Specialty Start Date End Date Joycelyn Brothers DO PCP - General 11/30/20 documented as of this encounter
== END 2025-03-05 11:39 | disposition home or self-care (01) ==
LOC: HO.ACS 11:14
PROVIDERS: PCP Physician Assistant; Visit Provider Internal Medicine Medical Oncology
DX: Z79.01 Long term (current) use of anticoagulants (principal)

== ENCOUNTER → 2025-03-05 11:14 | Outpatient (BNVA) | payer OTHER, SELFPAY | PROVIDERS: PCP Physician Assistant; Visit Provider Internal Medicine Medical Oncology | DX: I48.0 Paroxysmal atrial fibrillation (principal); Z79.01 Long term (current) use of anticoagulants; Z51.81 Encounter for therapeutic drug level monitoring | CPT/HCPCS: 85610; 99211 ==

== ENCOUNTER 2025-03-19 11:35 | Outpatient (AMB) | payer OTHER, SELFPAY ==
[2025-03-19 11:44] LABS: Prothrombin Time Whole Bld POC 25.1 sec (11.1-13.5); ~PT, ~INR - Anti Coag Clinic 2.1 (0.9-1.1)
--- NOTE | 2025-03-19 11:51 | MHC.OFFVISCO ---
Intake Intake Visit Reasons: Anticoagulation Allergies lisinopril [LISINOPRIL] Allergy (Severe, Verified 03/19/25 11:37) ACUTE KIDNEY INJURY oxycodone [Percocet] Allergy (Intermediate, Verified 03/19/25 11:37) agitation codeine [CODEINE] Allergy (Unknown, Verified 03/19/25 11:37) AGITATION morphine [MORPHINE] Allergy (Unknown, Verified 03/19/25 11:37) AGITATION, confusion From PERCOCET Allergy (Unknown, Uncoded 03/05/25 11:21) AGITATION Medication List - Last Reconciled 03/19/25 by Elma Choudhury RN amlodipine 2.5 mg PO DAILY atorvastatin 80 mg PO QAM cholecalciferol (vitamin D3) 25 mcg PO DAILY compression socks, large As directed febuxostat (Uloric) 40 mg PO DAILY fluticasone propionate 50 mcg/actuation 1 spray intranasal DAILY 30 days furosemide (Lasix) 40 mg PO QAM 90 days gabapentin 200 mg (2 x 100 mg) PO BEDTIME 30 days meclizine 25 mg PO TID PRN 30 days metoprolol tartrate 50 mg See Protocol PO BID 90 days prednisone 10 mg PO ONCE PRN simethicone 180 mg PO QID 30 days sodium zirconium cyclosilicate (Lokelma) 10 grams orally Every Monday and ; warfarin 7.5 mg See Protocol PO MO warfarin 5 mg See Protocol PO SUTUWETHFRSA Nursing Note NO CP,SOB,DIET/MED CHANGES,FALLS OR SX OF BLEEDING CONTINUE PRESENT DOSE AND FOLLOW-UP IN 3 WEEKS. GOOD UNDERSTANDING VERB, Anti-Coag Initial Assessment Social Hx Patient Tobacco Use Status: Former Tobacco user Tobacco use type: Cigarette alcohol intake: former Alcohol intake frequency: does not drink Questionnaires HAS-BLED Does the patient had uncontrolled Hypertension?: No Does the patient have renal disease?: Yes Does the patient have liver disease?: No Does the patient have a history of stroke?: Yes Has the patient had major bleeding or predisposition to bleeding?: No Does the patient have labile INRs?: No Is the patient over 65 years of age?: Yes Is the patient on medications that gives them a predisposition to bleeding?: Yes Does the patient use alcohol?: No HAS-BLED Score: 4 CHADSVASC Age: 75 or over Gender: Male Does the patient have a history of CHF?: No Does the patient have a history of Hypertension?: Yes Does the patient have a history of Stroke/TIA/Thromboembolism?: Yes Does the patient have a history of Vascular Disease (prior MT, PAD or aortic plaque)?: Yes Does the patient have a history of Diabetes?: Yes CHADS VACS Score: 7 Arline Prediction Score Rsk VTE Active Cancer: No Previous VTE, excluding superficial vein thrombosis: No Reduced mobility: No Already known Thrombophilic Condition: Yes With-in last month Trauma and/or Surgery: No Elderly 70 year or older: Yes Heart and/or Respiratory Failure: No Acute Myocardial infarction and/or Ischemic Stroke: Yes Acute Infection and/or Rheumatologic Disorder: No Obesity (BMI 30 or greater): No Ongoing Hormonal Treatment: No Score: 5 Arline Score less than 4; Low Risk of VTE Arline Score 4 or greater; High Risk of VTE Coding Level of Care Code Est Patient Level 1 Diagnoses Current use of anticoagulant therapy Z79.01 Results AMB INR Fingerstick AMB INR Fingerstick 2.1 Last Edit by Elma Choudhury RN on 03/19/25 11:48 Assessment & Plan Assessment & Plan (1) Current use of anticoagulant therapy: Code(s): Z79.01 - 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
--- OUTSIDE RECORDS SUMMARY | 2025-03-19 13:12 | XMS_ITS | Encounter Summary ---
Author Organization [employer] Address [address] [facility] 7t [place] [address] Care Team Providers Care Nougat Candy Maker Helper Name Role Phone Sherry Ward MD Primary Care Provider [phone] Keith Robe PharmD Unavailable [phone] Encounter Details Date Type Department Care Team (Late st Contact Info) Description 11/02/2023 Orders Only [facility] MEDICINE [address] [place], [place] [phone] Sherry Ward MD [address] [place], [place] [phone] Left foot pain (Primary Dx) Social History [...] limb documented in this encounter Care Teams Nougat Candy Maker Helper Relationship Specialty Start Date End Date Sherry Ward MD [address] [place] [address] PCP - General Family Medicine 11/20/18 12/17/23 Robe Parker, IrisD [address] [place] [address] Pharmacist Internal Medicine 06/15/23 documented as of this encounter
--- OUTSIDE RECORDS SUMMARY | 2025-03-19 13:12 | XMS_ITS | Encounter Summary ---
Author Organization [employer] Address [address] [place] [address] 7t [place] [address] Care Team Providers Care Professor Of Environmental Studies Name Role Phone Sherry Ward MD Primary Care Provider [phone] Robe Parker PharmD Unavailable [phone] Reason for Referral * Imaging (Routine) - Closed Specialty Diagnoses / Procedures Referred By Contac t Referred To Contact Diagnoses Vertigo Ischemic heart disease Chronic atrial fibrillation (CMS/HCC) Essential hypertension Procedures Mr Brain w/ and w/o Contrast Sherry Ward MD [address] [place] [address] Phone: tel: fax: [facility] [place] MRI and CT Scan [address] [place], [place] Phone: tel: fax: Referral ID Status Reason Start Date Expiration Date Visits Re quested Visits Authorized [id number] Closed 11/17/2022 11/17/2023 1 1 Encounter Details Date Type Department Care Team (Late st Contact Info) Description 11/08/2022 Orders Only [facility] MEDICINE [address] [place], [place] [phone] Sherry Ward MD [address] [place], [place] [phone] Vertigo (Primary Dx); Ischemic heart disease; Chronic [...] hypertension documented in this encounter Care Teams Professor Of Environmental Studies Relationship Specialty Start Date End Date Sherry Ward MD [address] [place] [address] PCP - General Family Medicine 11/20/18 12/17/23 Robe Parker, IrisD [address] [place] [address] Pharmacist Internal Medicine 06/15/23 documented as of this encounter
--- OUTSIDE RECORDS SUMMARY | 2025-03-19 13:12 | XMS_ITS | Encounter Summary ---
Author Organization [employer] Address [address] [place] [address] 7t [place] [address] Care Team Providers Care Help Desk Administrator Name Role Phone Sherry Ward MD Primary Care Provider [phone] Robe Parker PharmD Unavailable [phone] Reason for Visit * Reason Onset Date Comments Anticoagulation 12/21/2022 Encounter Details Date Type Department Care Team ([facility] st Contact Info) Description 12/21/2022 Telephone [facility] MEDICINE [address] [place], [place] [phone] Sherry Ward MD [address] [place], [place] [phone] Anticoagulation Social History Tobacco Use Types Packs/Day [...] call received at this time. Katy at [facility] reports today that Pt. INR is 1.4 Warfarin dose today 7.5mg 5mg abd Monday 2.5 mg Monday and 5mg Monday Recheck Monday. Please call Katy CURRAN if needed. documented in this encounter Plan of Treatment Not on file documented as of this encounter Visit Diagnoses Not on filedocumented in this encounter Care Teams Help Desk Administrator Relationship Specialty Start Date End Date Sherry Ward MD [address] [place] [address] PCP - General Family Medicine 11/20/18 12/17/23 Robe Parker, PharmD [address] [place] [phone] Pharmacist Internal Medicine 06/15/23 documented as of this encounter
--- OUTSIDE RECORDS SUMMARY | 2025-03-19 13:12 | XMS_ITS | Encounter Summary ---
Author Organization [employer] Address [address] [place] [address] 7t [place] [address] Care Team Providers Care Assembler Wire Group Name Role Phone Sherry Ward MD Primary Care Provider [phone] Robe Parker PharmD Unavailable [phone] Encounter Details Date Type Department Care Team (Late st Contact Info) Description 11/04/2022 Orders Only [facility] MEDICINE [address] [place] [address] Sharon Ko, RN Social History Tobacco Use [...] filedocumented in this encounter Care Teams Assembler Wire Group Relationship Specialty Start Date End Date Sherry Ward MD [address] [place] [address] PCP - General Family Medicine 11/20/18 12/17/23 Robe Parker, PharmD [address] [place] [address], [place] [address] Pharmacist Internal Medicine 06/15/23 documented as of this encounter
--- OUTSIDE RECORDS SUMMARY | 2025-03-19 13:12 | XMS_ITS | Clinical Summary ---
Author Organization [facility] Address [address] [facility] [address] [place] [address] Phone Care Team Providers Care Film Inspector Name Role Phone Joycelyn Brothers DO Primary [...] adenomatous polyp of colon 01/26/2024 Tinnitus 03/21/2023 retirement current use of anticoagulant Overview (01/26/2024): Last [...] 04/02/2021 Overview (01/26/2024): Last Assessment & Plan: -Globe Changer: Dr. Roland, last seen in 12/27/21 -Baseline SCr 2.4-2.8; eGFR 22-26, CrCl 28.5 -Most recent lab: 08/05/22 K 5.2, BUN 46, SCr 2.48; eGFR 26 -Avoid nephrotoxic drugs/substances and behaviors, including NSAIDs use. -Renal dose medications. Tinea pedis 04/30/2018 Ischemic heart disease 04/30/2018 Overview (01/26/2024): Last Assessment & Plan: -Core Fitter, Dr. Cain, seen on 11/10/22 -TIA in January 2018. Dx Afib. Started on Coumadin. -03/14/18 BRITTANY to distal RCA. Completed uninterrupted Plavix and Coumadin therapy for 1 year. Plan was to swithc Plavix to ASA. Pt is not on ASA or Plavix at this time because his CAD is stable per training professional. - Last echo in 12/28/21: Normal LV function, EF 55-60%. slight decrease from last echo. mild GERD reguigitation -Continue current medications History of placement of stent for coronary arter y disease 04/30/2018 Chronic atrial fibrillation 02/09/2018 Overview (01/26/2024): Last Assessment & Plan: A-fib today, rate controlled. pt is usually asymptomatic whether he is bradycardia and tachycardia -his training professional recommends rate control rather than rhythm control [...] 49 Years) Discontinued 03/21/2016, 06/18/2015, 04/14/2010 Insurance [id number] ([id number]) [address] [place] [address] [facility] [employer] ([id number]) [place] [address] Care Teams Film Inspector Relationship Specialty Start Date End Date Joycelyn Brothers DO PCP - General 11/30/20
--- OUTSIDE RECORDS SUMMARY | 2025-03-19 13:12 | XMS_ITS | Encounter Summary ---
Author Organization [facility] Address [address] [place] [address] Phone Care Team Providers Care Pallet Stone Positioner Name Role Phone Joycelyn Brothers DO Primary Care Provider Unava ilable Encounter Details Date Type Department Care Team (Late st Contact Info) Description 11/08/2022 Telephone [facility] [address] [place] [address] Alex Garcia MD Social History [...] She also wants to add that his director web started him on digoxin 0.1 mg daily. Please advise Thank you CB# [phone] documented in this encounter Plan of Treatment Not on file documented as of this encounter Visit Diagnoses Not on filedocumented in this encounter Care Teams Pallet Stone Positioner Relationship Specialty Start Date End Date Joycelyn Brothers DO PCP - General 11/30/20 documented as of this encounter
--- OUTSIDE RECORDS SUMMARY | 2025-03-19 13:12 | XMS_ITS | Encounter Summary ---
Author Organization [employer] Address [address] [facility] 7t [place] [address] Care Team Providers Care Armed Custom Protection Officer Name Role Phone Sherry Ward MD Primary Care Provider [phone] Parker Robe PharmD Unavailable [phone] Reason for Visit * Reason Onset Date Comments Lab Request 01/16/2023 Patient walked i n requesting for lab examination to see potassium levels. Patient has been on kayexalate for a month already and would like to see how his levels are doing. Encounter Details Date Type Department Care Team (Late st Contact Info) Description 01/16/2023 Telephone [facility] MEDICINE [address] [place] [address] Sherry Ward MD [address] [place], [place] [phone] Lab Request (Patient walked in requesting for [...] he [place] to [place] [facility] Informed we would have to change the [...] on filedocumented in this encounter Care Teams Armed Custom Protection Officer Relationship Specialty Start Date End Date Sherry Ward MD [address] [place] [address] PCP - General Family Medicine 11/20/18 12/17/23 Robe Parker, PharmD [address] [place] [address] Pharmacist Internal Medicine 06/15/23 documented as of this encounter
--- OUTSIDE RECORDS SUMMARY | 2025-03-19 13:12 | XMS_ITS | Encounter Summary ---
Author Organization [employer] Address [address] [place] [address] 7t [place] [address] Care Team Providers Care Door Repairer Bus Name Role Phone Sherry Ward MD Primary Care Provider [phone] Keith Robe PharmD Unavailable [phone] Encounter Details Date Type Department Care Team ([facility] st Contact Info) Description 01/23/2023 Orders Only [facility] MEDICINE [address] [place], [place] [phone] Nivia Serrato MD [address] [place] [address] Hyperkalemia (Primary Dx) Social History Tobacco Use [...] Hyperpotassemia documented in this encounter Care Teams Door Repairer Bus Relationship Specialty Start Date End Date Sherry Ward MD [address] [place], [place] [phone] PCP - General Family Medicine 11/20/18 12/17/23 Robe Parker, PharmD [address] [place] [address] Pharmacist Internal Medicine 06/15/23 documented as of this encounter
--- OUTSIDE RECORDS SUMMARY | 2025-03-19 13:13 | XMS_ITS | Encounter Summary ---
Author Organization [employer] Address 75 [facility] 7t [place] [address] Care Team Providers Care Tube Sorter Name Role Phone Robe Parker PharmD Unavailable [phone] Reason for Visit * Reason Comments Med Refill Encounter Details Date Type Department Care Team ([facility] st Contact Info) Description 09/26/2024 Refill [facility] MEDICINE 230 [place], [place] [phone] Sherry Ward MD 230 [place], [place] [phone] Dyslipidemia Social History Tobacco Use Types Packs/Day [...] hyperlipidemia documented in this encounter Care Teams Tube Sorter Relationship Specialty Start Date End Date Robe Parker PharmD 230 [place] [address] Pharmacist Internal Medicine 06/15/23 documented as of this encounter
--- OUTSIDE RECORDS SUMMARY | 2025-03-19 13:13 | XMS_ITS | Encounter Summary ---
Author Organization [employer] Address 75 [facility] 7t [place] [address] Care Team Providers Care Rehabilitation Assistant Name Role Phone Robe Parker PharmD Unavailable [phone] Reason for Visit * Reason Comments Med Refill Encounter Details Date Type Department Care Team ([facility] st Contact Info) Description 03/08/2024 Refill [facility] MEDICINE 230 [place], [place] [phone] Roopa Unger ANP 230 [place], [place] [phone] Social History Tobacco Use Types Packs/Day Years [...] on filedocumented in this encounter Care Teams Rehabilitation Assistant Relationship Specialty Start Date End Date Robe Parker PharmD [address] [place] [phone] Pharmacist Internal Medicine 06/15/23 documented as of this encounter
--- OUTSIDE RECORDS SUMMARY | 2025-03-19 13:13 | XMS_ITS | Encounter Summary ---
Author Organization [employer] Address 75 [facility] 7t [place] [address] Care Team Providers Care Dolly Driver Name Role Phone Robe Parker PharmD Unavailable [phone] Reason for Visit * Reason Comments Med Refill Encounter Details Date Type Department Care Team ([facility] st Contact Info) Description 03/11/2024 Refill [facility] MEDICINE 230 [place], [place] [phone] Sherry Ward MD 230 [place], [place] [phone] Neuropathic pain Social History Tobacco Use Types [...] pain documented in this encounter Care Teams Dolly Driver Relationship Specialty Start Date End Date Robe Parker, IrisD [address] [place] [phone] Pharmacist Internal Medicine 06/15/23 documented as of this encounter
--- OUTSIDE RECORDS SUMMARY | 2025-03-19 13:13 | XMS_ITS | Encounter Summary ---
Author Organization [employer] Address 75 [facility] 7t [place] [address] Care Team Providers Care Manager Business Banking Name Role Phone Sherry Ward MD Primary Care Provider [phone] Keith Robe PharmD Unavailable [phone] Encounter Details Date Type Department Care Team ([facility] st Contact Info) Description 11/02/2023 Orders Only [facility] MEDICINE 230 [place], [place] [phone] Sherry Ward MD 230 [place], [place] [phone] Social History Tobacco Use Types Packs/Day Years [...] filedocumented in this encounter Care Teams Manager Business Banking Relationship Specialty Start Date End Date Sherry Ward MD 230 [place] [address] PCP - General Family Medicine 11/20/18 12/17/23 Robe Parker, PharmD 230 [place] [address] Pharmacist Internal Medicine 06/15/23 documented as of this encounter
--- OUTSIDE RECORDS SUMMARY | 2025-03-19 13:13 | XMS_ITS | Encounter Summary ---
Author Organization [employer] Address [address] [place] [address] 7t [place] [address] Care Team Providers Care Twisting Press Operator Name Role Phone Sherry Ward MD Primary Care Provider [phone] Parker Robe PharmD Unavailable [phone] Reason for Visit * Reason Onset Date Comments triage 11/25/2022 Encounter Details Date Type Department Care Team ([facility] st Contact Info) Description 11/25/2022 Telephone [facility] MEDICINE 230 [place], [place] [phone] Sherry Ward MD 230 [place], [place] [phone] triage Social History Tobacco Use Types Packs/Day [...] 11/25/2022 4:06 PM EST Triage call with [employer] Accounts Manager ID [id number] Pt reports son came over this morning to test with home test. Pt isn't sure if it is positive and is requesting medication. Pt reports has had Covid before . Pt is unable to come to [facility] today for further testing. Pt symptoms [...] on filedocumented in this encounter Care Teams Twisting Press Operator Relationship Specialty Start Date End Date Sherry Ward MD 230 [place] [address] PCP - General Family Medicine 11/20/18 12/17/23 Robe Parker PharmD 230 [place] [address] Pharmacist Internal Medicine 06/15/23 documented as of this encounter
--- OUTSIDE RECORDS SUMMARY | 2025-03-19 13:13 | XMS_ITS | Encounter Summary ---
Author Organization [facility] Address [facility] [address] [place] [address] Phone Care Team Providers Care Environmental Services Associate Name Role Phone Joycelyn Brothers DO Primary Care Provider Ema ilva Encounter Details Date Type Department Care Team (Late st Contact Info) Description 05/29/2021 Orders Only [facility] [address] [place] [address] [place] [phone] Alex Garcia MD Chronic kidney disease stage [...] (HCC) documented in this encounter Care Teams Environmental Services Associate Relationship Specialty Start Date End Date Joycelyn Brothers DO PCP - General 11/30/20 documented as of this encounter
--- OUTSIDE RECORDS SUMMARY | 2025-03-19 13:13 | XMS_ITS | Encounter Summary ---
Author Organization [employer] Address 75 [facility] 7t [place] [address] Care Team Providers Care Summer Associate Name Role Phone Robe Parker PharmD Unavailable [phone] Reason for Visit * Reason Comments Med Refill Encounter Details Date Type Department Care Team ([facility] st Contact Info) Description 08/05/2024 Refill [facility] MEDICINE 230 [place], [place] [phone] Sherry Ward MD 230 [place], [place] [phone] Social History Tobacco Use Types Packs/Day Years [...] on filedocumented in this encounter Care Teams Summer Associate Relationship Specialty Start Date End Date Robe Parker, IrisD [address] [place] [phone] Pharmacist Internal Medicine 06/15/23 documented as of this encounter
--- OUTSIDE RECORDS SUMMARY | 2025-03-19 13:13 | XMS_ITS | Encounter Summary ---
Author Organization [employer] Address 75 [facility] 7t [place] [address] Care Team Providers Care Nephrologist Name Role Phone Robe Parker PharmD Unavailable [phone] Reason for Visit * Reason Comments Med Refill Encounter Details Date Type Department Care Team ([facility] st Contact Info) Description 01/11/2024 Refill [facility] MEDICINE 230 [place], [place] [phone] Jaqui Chowdary MD 230 [place], [place] [phone] Social History Tobacco Use Types Packs/Day Years [...] on filedocumented in this encounter Care Teams Nephrologist Relationship Specialty Start Date End Date Robe Parker, IrisD [address] [place] [phone] Pharmacist Internal Medicine 06/15/23 documented as of this encounter
--- OUTSIDE RECORDS SUMMARY | 2025-03-19 13:13 | XMS_ITS | Clinical Summary ---
Author Organization [employer] Address [address] [place] [address] 7t [place] [address] Care Team Providers Care Vocational Examiner Name Role Phone Robe Parker PharmD Unavailable [phone] Allergies Active Allergy Reactions Criticality Noted Date [...] 1 3 Active Lancets (OneTouch Delica Plus Zddpal83L) [facility] Check blood sugar once daily 100 each 11 3 Active Blood Glucose Monitoring Suppl (ONE TOUCH ULTRA 2) w/Device kitIndications:T ype 2 diabetes mellitus with stage 4 chronic kidney disease, without long-term current use of insulin ([facility]) 1 kit Once daily. 1 [...] taking febuxostat 40 mg daily prescribed by order schedule clerk - continue febuxostat 40 mg daily - [...] fibrilation - medication: warfarin - monitored by [facility] Antico[facility] - most recent INR 2.2 on 10/20/23 - continue current treatment plan Assessment & Plan (03/21/2023 11:52 AM EDT): - indication: Atrial fibrilation - medication: warfarin - monitored by [facility] Anticoagulation Clinic - [...] Assessment & Plan (11/05/2023 4:30 PM EST): -Machining Technician: Dr. Roland, last seen in Sep 2023 -Baseline SCr 2.0-2.4; eGFR 27-32, K 4.9-5.4 -Avoid nephrotoxic drugs/substances and behaviors, including NSAIDs use. -Renal dose medications. Assessment & Plan (03/13/2023 1:36 PM EDT): -Machining Technician: Dr. Roland, last seen in 12/27/21 -Baseline SCr 2.4-2.8; eGFR 22-26, CrCl 28.5 -Most recent lab: 08/05/22 K 5.2, BUN 46, SCr 2.48; eGFR 26 -Avoid nephrotoxic drugs/substances and behaviors, including NSAIDs use. -Renal dose medications. Assessment & Plan (12/19/2022 1:28 PM EST): -Machining Technician: Dr. Roland, last seen in 12/27/21 -Baseline SCr 2.4-2.8; eGFR 22-26, CrCl 28.5 -Most recent lab: 08/05/22 K 5.2, BUN 46, SCr 2.48; eGFR 26 -Avoid nephrotoxic drugs/substances and behaviors, including NSAIDs use. -Renal dose medications. Assessment & Plan (11/07/2022 4:55 AM EST): -Machining Technician: Dr. Roland, last seen in 12/27/21 -Baseline SCr 2.4-2.8; eGFR 22-26, CrCl 28.5 -Most recent lab: 08/05/22 K 5.2, BUN 46, SCr 2.48; eGFR 26 -Avoid nephrotoxic drugs/substances and behaviors, including NSAIDs use. -Renal dose medications. Chronic interstitial nephritis 04/02/2021 Proteinuria 04/02/2021 Ischemic heart disease 04/30/2018 Assessment & Plan (11/05/2023 4:06 PM EST): -Benefit Authorizer, Dr. Cain, seen in April 2023 -TIA [...] Assessment & Plan (03/13/2023 1:29 PM EDT): -Benefit Authorizer, Dr. Cain, seen on 11/10/22 -TIA in January 2018. Dx Afib. Started on Coumadin. -03/14/18 BRITTANY to distal RCA. Completed uninterrupted Plavix and Coumadin therapy for 1 year. Plan was to swithc Plavix to ASA. Pt is not on ASA or Plavix at this time because his CAD is stable per ballet professor. - Last echo in 12/28/21: Normal LV function, EF 55-60%. slight decrease from last echo. mild GERD reguigitation -Continue current medications Assessment & Plan (12/25/2022 7:27 AM EST): -Benefit Authorizer, Dr. Cain, seen on 11/10/22 -TIA in January 2018. Dx Afib. Started on Coumadin. -03/14/18 BRITTANY to distal RCA. Completed uninterrupted Plavix and Coumadin therapy for 1 year. Plan was to swithc Plavix to ASA. Pt is not on ASA or Plavix at this time because his CAD is stable per ballet professor. - Last echo in 12/28/21: Normal LV function, EF 55-60%. slight decrease from last echo. mild GERD reguigitation -Continue current medications Assessment & Plan (11/07/2022 5:02 AM EST): -Benefit Authorizer, Dr. Cain, seen on 05/19/22 -TIA in January 2018. Dx Afib. Started on Coumadin. -03/14/18 BRITTANY to distal RCA. Completed uninterrupted Plavix and Coumadin therapy for 1 year. Plan was to swithc Plavix to ASA. Pt is not on ASA or Plavix at this time because his CAD is stable per ballet professor. - Last echo in 12/28/21: Normal LV [...] whether he is bradycardia and tachycardia -his ballet professor recommends rate control rather than rhythm control - Continue rate control with metoprolol tartrate 100 mg bid - Continue digoxin 125 mcg daily - Continue warfarin, which is monitored by [facility] Anticoagulation clinic -- [...] whether he is bradycardia and tachycardia -his ballet professor recommends rate control rather than rhythm control - Continue rate control with metoprolol tartrate 100 mg bid - Continue digoxin 125 mcg daily - Continue warfarin, which is monitored by [facility] Anticoagulation clinic -- [...] wheter he is bradycardiac and tachycardiac -his ballet professor recommends rate control rather than rhythm control - Continue rate control with metoprolol tartrate 100 mg bid - Continue digoxin 125 mcg daily - Continue warfarin, which is monitored by [facility] Anticoagulation clinic -- [...] microalbuminuria due to type 2 diabetes mellitus ([facility]) 12/25/2014 Type 2 diabetes mellitus [...] Logan -Pt requests to be referred to [facility] where his son goes Assessment [...] wheter he is bradycardiac and tachycardiac -his ballet professor recommends rate control rather than rhythm control [...] decreased -Continue Coumadin, which is monitored by [facility] anticoagulation clinic. -Holter monitor on 04/13/22 showed average HR 61 bpm, sinus. A-fib 36%. -Holter monitor on 09/08/22 showed average HR 101 bpm, baseline A-fib, HR > 100 for 67% period -Pt states he has been taking digoxin. Will confirm it with ballet professor. Mild intermittent asthma 09/01/201503/2023 Immunizations Name Administration [...] disease, without long-term current use of insulin ([facility]) HM COLONOSCOPY Routine 04/22/2019 from Last 3 Months or Most Recently Relevant to Health Maintenance Results * (ABNORMAL) Lipid Panel with Reflex to Direct LDL (10/30/2023 2:57 PM EST) Triglycerides 433(H) <150 mg/dL [facility] Comment:Desirable Triglyceri de: less than 150 mg/dLBorderline High Triglyceride 150-199 mg/dLHigh Triglyceride: 200-499 mg/dLVery High Triglyceride: greater than or equal to 5OO mg/dL Cholesterol 266(H) <200 mg/dL [facility] Comment:Desirable Cholestero l: less than 200 mg/dLBorderline High Cholesterol: 200-239 mg/dLHigh Cholesterol: greater than 239 mg/dL LDL Cholesterol Calculated TNP <100 mg/dL [facility] Comment:Unable to calculate the LDL. The formula of Friedwald,Olsen, and Stefanie is only valid if the triglycerides areless than 400 mg/dl. HDL Cholesterol 28(L) >40 mg/dL [facility] Comment:Desirable HDL: great er than 40 mg/dL Note: This HDL assay may give artificially low results in patients with liver disease. Blood 10/30/2023 2:57 PM EST 10/30/2023 3:58 PM EST Sherry Ward MD LAB BLOOD ORDERABLES Final Resul t [facility] [address] [place] [phone] * (ABNORMAL) POCT glycosylated hemoglobin (Hgb A1c) (10/30/2023 2:23 PM EST) Hemoglobin A1C 7.1(A) 4.0 - 6.0 % QC Media Lot # [id number] Lot# Expiration Date Blood Capillary blood specimen / Unknown 10/30/2023 2:23 PM EST Sherry Ward MD POINT OF CARE TEST ENTER/EDIT OR DERABLES Final Result * Hm Colonoscopy (04/22/2019) [facility] Colonoscopy Normal Normal us Historical Provider MD HEALTH MAINTENANCE Final Result from Last 3 Months or Most Recently Relevant to Health Maintenance Insurance [facility] Care Teams Vocational Examiner Relationship Specialty Start Date End Date Robe Parker PharmD [address] [place] [phone] Pharmacist Internal Medicine 06/15/23
--- OUTSIDE RECORDS SUMMARY | 2025-03-19 13:13 | XMS_ITS | Encounter Summary ---
Author Organization [employer] Address 75 [facility] 7t [place] [address] Care Team Providers Care Teacher Of The Deaf Name Role Phone Robe Parker PharmD Unavailable [phone] Reason for Visit * Reason Comments Med Refill Encounter Details Date Type Department Care Team ([facility] st Contact Info) Description 03/08/2024 Refill [facility] MEDICINE 230 [place], [place] [phone] Sherry Ward MD 230 [place], [place] [phone] Neuropathic pain Social History Tobacco Use Types [...] pain documented in this encounter Care Teams Teacher Of The Deaf Relationship Specialty Start Date End Date Robe Parker, IrisD [address] [place] [phone] Pharmacist Internal Medicine 06/15/23 documented as of this encounter
--- OUTSIDE RECORDS SUMMARY | 2025-03-19 13:13 | XMS_ITS | Encounter Summary ---
Author Organization [employer] Address 75 [facility] 7t [place] [address] Care Team Providers Care Senior Infrastructure Engineer Name Role Phone Robe Parker PharmD Unavailable [phone] Reason for Visit * Reason Comments Med Refill Encounter Details Date Type Department Care Team ([facility] st Contact Info) Description 05/07/2024 Refill [facility] MEDICINE 230 [place], [place] [phone] Sherry Ward MD 230 [place], [place] [phone] Social History Tobacco Use Types Packs/Day Years [...] filedocumented in this encounter Care Teams Senior Infrastructure Engineer Relationship Specialty Start Date End Date Robe Parker, IrisD [address] [place] [phone] Pharmacist Internal Medicine 06/15/23 documented as of this encounter
== END 2025-03-19 12:44 | disposition home or self-care (01) ==
LOC: HO.ACS 11:35
PROVIDERS: PCP Physician Assistant; Visit Provider Internal Medicine Medical Oncology
DX: Z79.01 Long term (current) use of anticoagulants (principal)

== ENCOUNTER → 2025-03-19 11:35 | Outpatient (BNVA) | payer OTHER, SELFPAY | PROVIDERS: PCP Physician Assistant; Visit Provider Internal Medicine Medical Oncology | DX: I48.0 Paroxysmal atrial fibrillation (principal); Z79.01 Long term (current) use of anticoagulants; Z51.81 Encounter for therapeutic drug level monitoring | CPT/HCPCS: 85610; 99211 ==

== ENCOUNTER 2025-03-27 15:15 | Outpatient (AMB) | payer OTHER, SELFPAY ==
[2025-03-27 15:20] VITALS: BP 128/70; PULSE 56; TEMP 36.1; O2SAT 98; BMI 29.4
--- NOTE | 2025-03-27 15:20 | MHC.PC.OV ---
Vital Signs 03/27/25 15:20 Height 5 ft 6 in Weight 182 lb 4 oz BMI 29.4 BP 128/70 Blood Pressure Location Lt brachial Position Sitting Pulse 56 Pulse Source Pulse Oximeter Temp 96.9 F Temp Source Temporal Artery Scan Pulse Oximetry (%) 98 Oxygen Delivery Method Room Air Intake Visit Reasons: 3 month f/u Cork Tipper Required: Yes Cork Tipper Language: Moss Gatherer Name: Pt refused son will interpret Accompanied by: Son Allergies lisinopril [LISINOPRIL] Allergy (Severe, Verified 03/27/25 15:24) ACUTE KIDNEY INJURY oxycodone [Percocet] Allergy (Intermediate, Verified 03/27/25 15:24) agitation codeine [CODEINE] Allergy (Unknown, Verified 03/27/25 15:24) AGITATION morphine [MORPHINE] Allergy (Unknown, Verified 03/27/25 15:24) AGITATION, confusion From PERCOCET Allergy (Unknown, Uncoded 03/27/25 15:24) AGITATION Medication List - Last Reconciled 03/27/25 by Preet An PA-C amlodipine 2.5 mg PO DAILY atorvastatin 80 mg PO QAM cholecalciferol (vitamin D3) 25 mcg PO DAILY compression socks, large As directed febuxostat (Uloric) 40 mg PO DAILY fluticasone propionate 50 mcg/actuation 1 spray intranasal DAILY 30 days furosemide (Lasix) 40 mg PO QAM 90 days gabapentin 200 mg (2 x 100 mg) PO BEDTIME 30 days meclizine 25 mg PO TID PRN 30 days metoprolol tartrate 50 mg See Protocol PO BID 90 days prednisone 10 mg PO ONCE PRN simethicone 180 mg PO QID 30 days sodium zirconium cyclosilicate (Lokelma) 10 grams orally Every Monday and ; warfarin 7.5 mg See Protocol PO MO warfarin 5 mg See Protocol PO SUTUWETHFRSA Tobacco use date assessed: 03/27/25 Fall risk assessment: No Falls in past year Last assessed Fall Risk: 03/27/25 Dental Screening Dental Screen Date: 03/27/25 Did you have a dental visit in the last 12 months?: Yes Did you have a dental problem in the last 6 months where you did not have access to dental care?: No Was dental information given to patient?: Patient has dentist HPI 3 month f/u HPI Details Patient is a 75 year male here today for follow-up visit Patient has a past medical history significant for AFib (followed by Cardiology), gout, thoracic aortic aneurysm (followed by vascular) hypertension, CKD stage 5(followed by Nephrology), coronary artery disease. .. AFib: Continues on warfarin for anticoagulation. Also followed by [facility]. .. 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 He continues with CKD stage 5. He does not have any uremic symptoms. He is followed by Nephrology closely. Though has been considerations to start dialysis treatment Has hyperkalemia and does do Lokelma twice a week [facility] Medical History Allergies Sinus bradycardia Pre-op examination Annual physical exam History of TIA (transient ischemic attack) Gout Personal history of nicotine dependence Chronic kidney disease, stage 3 unspecified Benign prostatic hyperplasia with lower urinary tract symptoms HTN (hypertension) CAD (coronary artery disease) Paroxysmal atrial fibrillation Surgical History Stented coronary artery Hx of colonoscopy Hx of cardiac cath Hx of cystoscopy History of esophagogastroduodenoscopy (EGD) Hx of cataract extraction Family History Mother CAD (coronary artery disease) Diabetes HTN (hypertension) Father CAD (coronary artery disease) Diabetes HTN (hypertension) Social History Household Members: None Housing: Apartment Do you presently have visiting nurse or other home services: No Alcohol intake: former Patient Tobacco Use Status: Former Tobacco user Tobacco use type: Cigarette Years Smoked: 40 +/- e-Cigarette/Vaping Use: Never Used Second Hand Smoke Exposure: No service: No Current occupational status: retired and disabled Cognitive needs: No Hearing needs: No Vision needs: Yes Questionnaire PHQ-9 Over the last 2 weeks, how often have you been bothered by any of the following problems? 1. Little interest or pleasure in doing things: not at all 2. Feeling down, depressed, or hopeless: not at all 3. Trouble falling or staying asleep, or sleeping too much: not at all 4. Feeling tired or having little energy: not at all 5. Poor appetite or overeating: not at all 6. Feeling bad about yourself - or that you are a failure or have let yourself or your family down: not at all 7. Trouble concentrating on things, such as reading the newspaper or watching television: not at all 8. Moving or speaking so slowly that other people could have noticed. Or the opposite - being so fidgety or restless that you have been moving around a lot more than usual: not at all 9. Thoughts that you would be better off or of hurting yourself in some way: not at all Total score: 0 Depression Screening Interpretation: Negative Depression Screening Done: Yes 79514 - PHQ-9 Billing: Yes Source: Developed by Drs. Jasson Ramos, Alanna Allen, Wai Tanner and colleagues, with an educational marcell from [employer]. Thrive Questionnaire Date Thrive assessed: 03/27/25 I am a: Patient What is your living situation today?: I have a steady place to live Within the past 12 months, did the food you bought not last and you didn't have the money to get more?: I choose not to answer this question Within the past 12 months, did you worry whether your food would run out before you got money to buy more?: I choose not to answer this question Do you have trouble paying for medicines?: No Do you have trouble getting transportation to medical appointments?: I choose not to answer this question Do you have trouble paying your heating and electricity bill?: I choose not to answer this question Do you have trouble taking care of your child, family member or friend?: I choose not to answer this question Do you have trouble with day-to-day activities such as bathing, preparing meals, shopping, managing finances, etc.?: I choose not to answer this question Are you currently unemployed and looking for a job?: I choose not to answer this question Are you interested in more education?: I choose not to answer this question Please select the resources that you would like help with: None Currently or been in a relationship where the following occur: I choose not to answer THRIVE Score: 0 AUDIT C Alcohol Use Questionnaire (AUDIT-C) 1. How often do you have a drink containing alcohol?: Never 3. How often do you have six or more drinks on one occasion?: Never Total Score: 0 Score Reviewed/Action Taken: No FAUSTINA-7 AMB Questionnaire FAUSTINA-7 Date FAUSTINA - 7 assessed: 03/27/25 Feeling nervous, anxious, or on edge: 0 = Not at all Not being able to stop or control worryin = Not at all Worrying too much about different things: 0 = Not at all Trouble relaxin = Not at all Being so restless that it is hard to sit still: 0 = Not at all Becoming easily annoyed or irritable: 0 = Not at all Feeling afraid as if something awful might happen: 0 = Not at all Total FAUSTINA-7 score (0-4 normal; 5-9 mild; 10-14 moderate; 15-21 severe): 0 Source: Developed by Drs. Jasson Ramos, Alanna Allen, Wai Tanner and colleagues, with an educational marcell from [employer]. FAUSTINA-7 Assessment Billing FAUSTINA-7 Assessment Tool: FAUSTINA-7 Assessment 77581 Review of Systems Const Denies headache(s) Eyes Denies loss of vision ENT Denies vertigo, Denies dizziness, Denies headache(s) and Denies sore throat Card Denies chest pain, Denies leg edema and Denies lightheadedness Resp Denies cough, Denies hemoptysis and Denies wheezing GI Denies abdominal pain, Denies melena, Denies constipation, Denies diarrhea and Denies vomiting Denies dysuria, Denies urinary frequency and Denies urinary urgency Musc Denies arthralgias, Denies joint swelling, Denies numbness and Denies tingling Neuro Denies Abnormal speech present, Denies behavioral changes, Denies vertigo, Denies dizziness, Denies headache(s), Denies loss of vision, Denies memory loss, Denies numbness and Denies tingling Psych Denies anxiety, Denies behavioral changes, Denies depression, Denies memory loss and Denies panic attacks Adonis/Lymph Denies easy bleeding and Denies easy bruising Aller/Immun Denies wheezing Physical exam (Primary Care) Vital Signs: Last Vital Signs Temp 96.9 F 03/27/25 15:20 Pulse 56 03/27/25 15:20 BP 128/70 03/27/25 15:20 Pulse Ox 98 03/27/25 15:20 Oxygen Delivery Method Room Air 03/27/25 15:20 BMI result Body Mass Index 29.4 Tobacco/Smoking Status: Tobacco use Status Tobacco use date assessed 03/27/25 03/27/25 15:22 Patient Tobacco Use Status Former Tobacco user 03/27/25 15:22 Tobacco use type Cigarette 03/27/25 15:22 e-Cigarette/Vaping Use Never Used 03/27/25 15:22 PHQ-9: PHQ-9 Score PHQ-9: Total score 0 04/01/25 07:43 Depression Screening Interpretation: Negative Thrive Assessment: Date of Thrive Assessment Date Thrive assessed 03/27/25 03/27/25 15:22 Currently or been in a relationship where the following occur: I choose not to answer Const General: healthy appearing, no acute distress, alert and awake Nutritional Appearance: well nourished Orientation/consciousness: oriented to person, oriented to place and oriented to time HENMT Ears: TM's normal bilaterally General nose exam: Normal nasal mucous membranes and turbinates present Eyes Conjunctivae: conjunctivae normal Sclerae: sclerae normal Pupils: Equal, round and reactive pupils present Neck Neck: Yes no lymphadenopathy and Yes no JVD Thyroid: Thyroid normal Carotids: no bruits Resp Effort & Inspection: normal respiratory effort and not tachypneic Auscultation: no crackles, no rales, no rhonchi and no wheezes Cardio Rate: regular rate Rhythm: regular rhythm Heart sounds: no murmurs and normal S1 and S2 GI Palpation (GI): Soft to palpation, nontender, no hepatomegaly and no splenomegaly Auscultation: normal bowel sounds Skin General skin exam: no rashes or lesions noted and dry skin Neuro General: oriented to person, oriented to place and oriented to time Cranial nerves: Yes Equal, round and reactive pupils present Speech: No Abnormal speech present Gait exam (Neuro): Normal gait present Motor exam (neuro): no tremor noted Extrem Right upper extremity: full ROM Left upper extremity: full ROM Right lower extremity: full ROM; no edema Left lower extremity: full ROM; no edema Psych Mental Status: mental status grossly normal Speech and movement: Normal speech and movement present Affect: normal affect Attitude: cooperative Thought process: Normal thought process present Coding Level of Care Code Est Pt Level 4 (39341) Diagnoses CKD (chronic kidney disease) stage 5, GFR less than 15 ml/min N18.5 Hyperkalemia E87.5 Coronary artery disease involving twenty[place]nine [place] coronary artery of twenty[place]nine [place] heart without angina pectoris I25.10 Coronary Disease-Associated Artery/Lesion type: [place]nine [place] artery [place] vs. transplanted heart: [place]nine [place] heart Associated angina: without angina Additional Codes FAUSTINA-7 Assessment Billing - FAUSTINA-7 Assessment Tool: FAUSTINA-7 Assessment 48774 ([id number]) PHQ-9 - 71628 - PHQ-9 Billing: Yes ([id number]) Assessment & Plan Assessment & Plan (1) CKD (chronic kidney disease) stage 5, GFR less than 15 ml/min: Code(s): N18.5 - Chronic kidney disease, stage 5 Category: Medical Plan: Chronic disease due to interstitial nephritis by biopsy. Initial biopsy was done only [facility] and no tissue was obtained. Repeat biopsy was done and was [facility] which revealed interstitial nephritis with global sclerosis. At present no signs or symptoms of uremia No absolute indication for dialysis yet Fluid status acceptable Continue to avoid nephrotoxic agents. Will monitor renal function closely (2) Hyperkalemia: Code(s): E87.5 - Hyperkalemia Category: Medical Plan: Has seen a dietitian and discussing low potassium diet. K was 5.2 Reviewed diet Discussed Low K diet Has been started on lokelma twice a week. Unfortunately unable to do twice a week due to side effects of intolerable diarrhea. (3) CAD (coronary artery disease): Code(s): I25.10 - Atherosclerotic heart disease of [place]nine [place] coronary artery without angina pectoris Category: Medical Qualifiers: Coronary Disease-Associated Artery/Lesion type: [place] artery [place] vs. transplanted heart: [place] heart Associated angina: without angina Qualified Code(s): I25.10 - Atherosclerotic heart disease of [place]nine [place] coronary artery without angina pectoris Plan: Patient followed by Cardiology, Blood pressure stable. Will continue current doses of antihypertensive medication. LDL optimal goal to be below 70
--- OUTSIDE RECORDS SUMMARY | 2025-03-27 15:48 | XMS_ITS | Patient Health Record ---
Author Organization [facility] Address [address] [place] [address] Care Team Providers Care Cyber Systems Engineer Name Role Phone Joycelyn Brothers M.D. 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 [address] [place] [phone] [id number] SEMAJ PATTERSON Self - patient is the insured Medical (General) History Medical History History ICD Code Kidney disease-followed by Dr. Tae johansen HTN Denies NC,CVA,Lung disease Hyperlipidemia Rx'd for H.pylori in 06/2012 [...]
--- OUTSIDE RECORDS SUMMARY | 2025-03-27 15:49 | XMS_ITS | Encounter Summary ---
Author Organization [facility] Address [address] [facility] 7t [place] [address] Care Team Providers Care Knitting Machine Fixer Name Role Phone Robe Parker PharmD Unavailable [phone] Reason for Visit * Reason Comments Med Refill Encounter Details Date Type Department Care Team ([facility] st Contact Info) Description 03/08/2024 Refill [facility] MEDICINE [address] [place] [address] Sherry Ward MD [address] [place], [place] [phone] Neuropathic pain Social History Tobacco Use Types [...] pain documented in this encounter Care Teams Knitting Machine Fixer Relationship Specialty Start Date End Date Robe Parker PharmD [address] [place] [address] Pharmacist Internal Medicine 06/15/23 documented as of this encounter
--- OUTSIDE RECORDS SUMMARY | 2025-03-27 15:49 | XMS_ITS | Encounter Summary ---
Author Organization [facility] Address [address] [place] [address] Phone Care Team Providers Care Fringe Weaver Name Role Phone Joycelyn Brothers DO Primary Care Provider Unava ilable Encounter Details Date Type Department Care Team (Late st Contact Info) Description 11/08/2022 Telephone [facility] [address] [place] [address] Alex Garcia MD Social History [...] She also wants to add that his oil expeller operator started him on digoxin 0.1 mg daily. Please advise Thank you CB# [phone] documented in this encounter Plan of Treatment Not on file documented as of this encounter Visit Diagnoses Not on filedocumented in this encounter Care Teams Fringe Weaver Relationship Specialty Start Date End Date Joycelyn Brothers DO PCP - General 11/30/20 documented as of this encounter
--- OUTSIDE RECORDS SUMMARY | 2025-03-27 15:49 | XMS_ITS | Encounter Summary ---
Author Organization [facility] [employer] Address [address] [facility] 7t [place] [address] Care Team Providers Care Triage Specialist Name Role Phone Sherry Ward MD Primary Care Provider [phone] Robe Parker PharmD Unavailable [phone] Encounter Details Date Type Department Care Team (Late st Contact Info) Description 11/02/2023 Orders Only [facility] MEDICINE [address] [place], [place] [phone] Sherry Ward MD [address] [place], [place] [phone] Social History Tobacco Use Types Packs/Day Years [...] on filedocumented in this encounter Care Teams Triage Specialist Relationship Specialty Start Date End Date Sherry Ward MD [address] [place] [address] PCP - General Family Medicine 11/20/18 12/17/23 Robe Parker, PharmD [address] [place] [address] Pharmacist Internal Medicine 06/15/23 documented as of this encounter
--- OUTSIDE RECORDS SUMMARY | 2025-03-27 15:49 | XMS_ITS | Encounter Summary ---
Author Organization [facility] Address [address] [facility] 7t [place] [address] Care Team Providers Care Pipeline Construction Inspector Name Role Phone Robe Parker PharmD Unavailable [phone] Reason for Visit * Reason Comments Med Refill Encounter Details Date Type Department Care Team ([facility] st Contact Info) Description 09/26/2024 Refill [facility] MEDICINE [address] [place] [address] Sherry Ward MD [address] [place], [place] [phone] Dyslipidemia Social History Tobacco Use Types Packs/Day [...] hyperlipidemia documented in this encounter Care Teams Pipeline Construction Inspector Relationship Specialty Start Date End Date Robe Parker PharmD [address] [place] [address] Pharmacist Internal Medicine 06/15/23 documented as of this encounter
--- OUTSIDE RECORDS SUMMARY | 2025-03-27 15:49 | XMS_ITS | Encounter Summary ---
Author Organization [facility] Address [address] [facility] 7t [place] [address] Care Team Providers Care Garage Door Hanger Name Role Phone Sherry Ward MD Primary Care Provider [phone] Robe Parker PharmD Unavailable [phone] Reason for Visit * Reason Onset Date Comments Anticoagulation 12/21/2022 Encounter Details Date Type Department Care Team ([facility] st Contact Info) Description 12/21/2022 Telephone [facility] MEDICINE [address] [place], [place] [phone] Sherry Ward MD [address] [place], [place] [phone] Anticoagulation Social History Tobacco Use Types Packs/Day [...] call received at this time. Katy at [facility] reports today that Pt. INR is 1.4 Warfarin dose today 7.5mg 5mg abd Monday 2.5 mg Monday and 5mg Monday Recheck Monday. Please call Katy CURRAN if needed. documented in this encounter Plan of Treatment Not on file documented as of this encounter Visit Diagnoses Not on filedocumented in this encounter Care Teams Garage Door Hanger Relationship Specialty Start Date End Date Sherry Ward MD [address] [place] [phone] PCP - General Family Medicine 11/20/18 12/17/23 Robe Parker, IrisD [address] [place] [address] Pharmacist Internal Medicine 06/15/23 documented as of this encounter
--- OUTSIDE RECORDS SUMMARY | 2025-03-27 15:49 | XMS_ITS | Encounter Summary ---
Author Organization [facility] [employer] Address [address] [facility] 7[address] [place] [address] Care Team Providers Care Government Program Manager Name Role Phone Robe Parker PharmD Unavailable [phone] Reason for Visit * Reason Comments Med Refill Encounter Details Date Type Department Care Team ([facility] st Contact Info) Description 05/07/2024 Refill [facility] MEDICINE [address] [place] [address] Sherry Wadr MD [address] [place], [place] [phone] Social History Tobacco Use Types Packs/Day Years [...] on filedocumented in this encounter Care Teams Government Program Manager Relationship Specialty Start Date End Date Robe Parker PharmD [address] [place] [phone] Pharmacist Internal Medicine 06/15/23 documented as of this encounter
--- OUTSIDE RECORDS SUMMARY | 2025-03-27 15:49 | XMS_ITS | Encounter Summary ---
Author Organization [facility] Address [address] [facility] [address]t [place] [address] Care Team Providers Care Data Analyst Name Role Phone Robe Parker PharmD Unavailable [phone] Reason for Visit * Reason Comments Med Refill Encounter Details Date Type Department Care Team ([facility] st Contact Info) Description 08/05/2024 Refill [facility] MEDICINE [address] [place] [address] Sherry Ward MD [address] [place], [place] [phone] Social History Tobacco Use Types Packs/Day Years [...] on filedocumented in this encounter Care Teams Data Analyst Relationship Specialty Start Date End Date Robe Parker PharmD [address] [place] [address] Pharmacist Internal Medicine 06/15/23 documented as of this encounter
--- OUTSIDE RECORDS SUMMARY | 2025-03-27 15:49 | XMS_ITS | Encounter Summary ---
Author Organization [employer] Address [address] [facility] 7t [place] [address] Care Team Providers Care Hot Mill Observer Name Role Phone Sherry Ward MD Primary Care Provider [phone] Robe Parker PharmD Unavailable [phone] Reason for Referral * Imaging (Routine) - Closed Specialty Diagnoses / Procedures Referred By Contac t Referred To Contact Diagnoses Vertigo Ischemic heart disease Chronic atrial fibrillation (CMS/HCC) Essential hypertension Procedures Mr Brain w/ and w/o Contrast Sherry Ward MD [address] [place] [address] Phone: tel: fax: [facility] MRI and CT Scan [address] [place], [place] Phone: tel: fax: Referral ID Status Reason Start Date Expiration Date Visits Re quested Visits Authorized [id number] Closed 11/17/2022 11/17/2023 1 1 Encounter Details Date Type Department Care Team (Late st Contact Info) Description 11/08/2022 Orders Only [facility] MEDICINE [address] [place], [place] [phone] Sherry Ward MD [address] [place], [place] [phone] Vertigo (Primary Dx); Ischemic heart disease; Chronic [...] hypertension documented in this encounter Care Teams Hot Mill Observer Relationship Specialty Start Date End Date Sherry Ward MD [address] [place] [address] PCP - General Family Medicine 11/20/18 12/17/23 Robe Parker, Gabby [address] [place] [address] Pharmacist Internal Medicine 06/15/23 documented as of this encounter
--- OUTSIDE RECORDS SUMMARY | 2025-03-27 15:49 | XMS_ITS | Clinical Summary ---
Author Organization [employer] Address 75 [facility] 7t [place] [address] Care Team Providers Care Steam Turbine Assembler Name Role Phone Robe Parker PharmD Unavailable [phone] Allergies Active Allergy Reactions Criticality Noted Date [...] GRAMS) EVERY OTHER DAY 30 each 3 04/25/202 3 Active cetirizine (ZyrTEC) 5 MG tablet TAKE 1 TABLET BY MOUTH EVERY DAY 90 tablet 1 3 Active Lancets (OneTouch Delica Plus [id number]) [facility] Check blood sugar once daily 100 each 11 3 Active Blood Glucose Monitoring Suppl (ONE TOUCH ULTRA 2) w/Device kitIndications: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 1 [...] taking febuxostat 40 mg daily prescribed by casting plug assembler - continue febuxostat 40 mg daily - [...] fibrilation - medication: warfarin - monitored by [facility] Anticoagulation Clinic - most recent INR 2.2 on 10/20/23 - continue current treatment plan Assessment & Plan (03/21/2023 11:52 AM EDT): - indication: Atrial fibrilation - medication: warfarin - monitored by [facility] Anticoagulation Clinic - most recent INR 1.6 [...] Assessment & Plan (11/05/2023 4:30 PM EST): -Commercial Appraiser: Dr. Roland, last seen in Sep 2023 -Baseline SCr 2.0-2.4; eGFR 27-32, K 4.9-5.4 -Avoid nephrotoxic drugs/substances and behaviors, including NSAIDs use. -Renal dose medications. Assessment & Plan (03/13/2023 1:36 PM EDT): -Commercial Appraiser: Dr. Roland, last seen in 12/27/21 -Baseline SCr 2.4-2.8; eGFR 22-26, CrCl 28.5 -Most recent lab: 08/05/22 K 5.2, BUN 46, SCr 2.48; eGFR 26 -Avoid nephrotoxic drugs/substances and behaviors, including NSAIDs use. -Renal dose medications. Assessment & Plan (12/19/2022 1:28 PM EST): -Commercial Appraiser: Dr. Roland, last seen in 12/27/21 -Baseline SCr 2.4-2.8; eGFR 22-26, CrCl 28.5 -Most recent lab: 08/05/22 K 5.2, BUN 46, SCr 2.48; eGFR 26 -Avoid nephrotoxic drugs/substances and behaviors, including NSAIDs use. -Renal dose medications. Assessment & Plan (11/07/2022 4:55 AM EST): -Commercial Appraiser: Dr. Roland, last seen in 12/27/21 -Baseline SCr 2.4-2.8; eGFR 22-26, CrCl 28.5 -Most recent lab: 08/05/22 K 5.2, BUN 46, SCr 2.48; eGFR 26 -Avoid nephrotoxic drugs/substances and behaviors, including NSAIDs use. -Renal dose medications. Chronic interstitial nephritis 04/02/2021 Proteinuria 04/02/2021 Ischemic heart disease 04/30/2018 Assessment & Plan (11/05/2023 4:06 PM EST): -Die Casting Machine Setter, Dr. Cain, seen in April 2023 -TIA [...] Assessment & Plan (03/13/2023 1:29 PM EDT): -Die Casting Machine Setter, Dr. Cain, seen on 11/10/22 -TIA in January 2018. Dx Afib. Started on Coumadin. -03/14/18 BRITTANY to distal RCA. Completed uninterrupted Plavix and Coumadin therapy for 1 year. Plan was to swithc Plavix to ASA. Pt is not on ASA or Plavix at this time because his CAD is stable per rn child. - Last echo in 12/28/21: Normal LV function, EF 55-60%. slight decrease from last echo. mild GERD reguigitation -Continue current medications Assessment & Plan (12/25/2022 7:27 AM EST): -Die Casting Machine Setter, Dr. Cain, seen on 11/10/22 -TIA in January 2018. Dx Afib. Started on Coumadin. -03/14/18 BRITTANY to distal RCA. Completed uninterrupted Plavix and Coumadin therapy for 1 year. Plan was to swithc Plavix to ASA. Pt is not on ASA or Plavix at this time because his CAD is stable per rn child. - Last echo in 12/28/21: Normal LV function, EF 55-60%. slight decrease from last echo. mild GERD reguigitation -Continue current medications Assessment & Plan (11/07/2022 5:02 AM EST): -Die Casting Machine Setter, Dr. Cain, seen on 05/19/22 -TIA in January 2018. Dx Afib. Started on Coumadin. -03/14/18 BRITTANY to distal RCA. Completed uninterrupted Plavix and Coumadin therapy for 1 year. Plan was to swithc Plavix to ASA. Pt is not on ASA or Plavix at this time because his CAD is stable per rn child. - Last echo in 12/28/21: Normal LV [...] whether he is bradycardia and tachycardia -his rn child recommends rate control rather than rhythm control - Continue rate control with metoprolol tartrate 100 mg bid - Continue digoxin 125 mcg daily - Continue warfarin, which is monitored by [facility] Anticoagulation clinic -- Treatment Hx: --Previously on [...] whether he is bradycardia and tachycardia -his rn child recommends rate control rather than rhythm control - Continue rate control with metoprolol tartrate 100 mg bid - Continue digoxin 125 mcg daily - Continue warfarin, which is monitored by [facility] Anticoagulation clinic -- Treatment Hx: --Previously on [...] wheter he is bradycardiac and tachycardiac -his rn child recommends rate control rather than rhythm control - Continue rate control with metoprolol tartrate 100 mg bid - Continue digoxin 125 mcg daily - Continue warfarin, which is monitored by [facility] Anticoagulation clinic -- Treatment Hx: --Previously on [...] microalbuminuria due to type 2 diabetes mellitus ([facility]) 12/25/2014 Type 2 diabetes mellitus [...] Logan -Pt requests to be referred to [facility] where his son goes Assessment & [...] wheter he is bradycardiac and tachycardiac -his rn child recommends rate control rather than rhythm control [...] decreased -Continue Coumadin, which is monitored by [facility] anticoagulation clinic. -Holter monitor on 04/13/22 showed average HR 61 bpm, sinus. A-fib 36%. -Holter monitor on 09/08/22 showed average HR 101 bpm, baseline A-fib, HR > 100 for 67% period -Pt states he has been taking digoxin. Will confirm it with rn child. Mild intermittent asthma 09/01/201503/2023 Immunizations Name Administration [...] Use Screening 1962 Hepatitis C Screening 1968 Depression Screening 11/07/2023 11/07/2022, 11/07/20 22 Diabetes: Hemoglobin A1C 01/29/2024 023, 11/07/2022, 08/18/2021 Colonoscopy 04/22/2024 04/22/2019 Colorectal Cancer Screening 04/22/2024 COVID-19 Vaccine ( season) 2024 11/11/2021, 02/16/2021, 01/19/2021 Influenza Vaccine (#1) 2024 3, 08/04/2022, 08/16/2021, Additional history exists SDOH Screening 09/09/2024 09/09/2023 Lipid Panel 10/30/2024 10/30/2023, 10/20, 08/05/2022, Additional history exists Tobacco Screening 10/30/2024 10/30/2023 RSV Patients and Patients Aged 60 years or older (1 - 1-dose 75+ series) 2025 DTaP/Tdap/Td Vaccines (3 - Td or Tdap) [...] disease, without long-term current use of insulin ([facility]) HM COLONOSCOPY Routine 04/22/2019 from Last 3 Months or Most Recently Relevant to Health Maintenance Results * (ABNORMAL) Lipid Panel with Reflex to Direct LDL (10/30/2023 2:57 PM EST) Triglycerides 433(H) <150 mg/dL [facility] Comment:Desirable Triglyceri de: less than 150 mg/dLBorderline High Triglyceride 150-199 mg/dLHigh Triglyceride: 200-499 mg/dLVery High Triglyceride: greater than or equal to 5OO mg/dL Cholesterol 266(H) <200 mg/dL [facility] Comment:Desirable Cholestero l: less than 200 mg/dLBorderline High Cholesterol: 200-239 mg/dLHigh Cholesterol: greater than 239 mg/dL LDL Cholesterol Calculated TNP <100 mg/dL [facility] Comment:Unable to calculate the LDL. The formula of Friedwald,Olsen, and Stefanie is only valid if the triglycerides areless than 400 mg/dl. HDL Cholesterol 28(L) >40 mg/dL [facility] Comment:Desirable HDL: great er than 40 mg/dL Note: This HDL assay may give artificially low results in patients with liver disease. Blood 10/30/2023 2:57 PM EST 10/30/2023 3:58 PM EST us Sherry Ward MD LAB BLOOD ORDERABLES Final Resul t [facility] [address] [place] [phone] * (ABNORMAL) POCT glycosylated hemoglobin (Hgb A1c) (10/30/2023 2:23 PM EST) Hemoglobin A1C 7.1(A) 4.0 - 6.0 % QC Media Lot # [id number] Lot# Expiration Date Blood Capillary blood specimen / Unknown 10/30/2023 2:23 PM EST us Sherry Ward MD POINT OF CARE TEST ENTER/EDIT OR DERABLES Final Result * Hm Colonoscopy (04/22/2019) Colonoscopy Normal Normal us Historical Provider HEALTH MAINTENANCE Final Result from Last 3 Months or Most Recently Relevant to Health [place] [address] [facility] Care Teams Steam Turbine Assembler Relationship Specialty Start Date End Date Robe Parkre PharmD [address] [place] [address] Pharmacist Internal Medicine 06/15/23
--- OUTSIDE RECORDS SUMMARY | 2025-03-27 15:49 | XMS_ITS | Encounter Summary ---
Author Organization [email or web address] Address [address] [facility] 7t [place] [address] Care Team Providers Care Tube Cleaning Operator Name Role Phone Robe Parker PharmD Unavailable [phone] Reason for Visit * Reason Comments Med Refill Encounter Details Date Type Department Care Team ([facility] st Contact Info) Description 03/11/2024 Refill [facility] [address] [place] [address] Sherry Ward MD 230 [place], [place] [phone] Neuropathic pain Social History Tobacco Use Types [...] pain documented in this encounter Care Teams Tube Cleaning Operator Relationship Specialty Start Date End Date Robe Parker PharmD [address] [place] [phone] Pharmacist Internal Medicine 06/15/23 documented as of this encounter
--- OUTSIDE RECORDS SUMMARY | 2025-03-27 15:49 | XMS_ITS | Encounter Summary ---
Author Organization [employer] Address [address] [facility] 7t [place] [address] Care Team Providers Care Gasoline Dragline Operator Name Role Phone Robe Parker PharmD Unavailable [phone] Reason for Visit * Reason Comments Med Refill Encounter Details Date Type Department Care Team ([facility] st Contact Info) Description 03/08/2024 Refill [facility] [address] [place] [address] Roopa Unger ANP [address] [place] [address] Social History Tobacco Use Types Packs/Day Years [...] on filedocumented in this encounter Care Teams Gasoline Dragline Operator Relationship Specialty Start Date End Date Robe Parker PharmD [address] [place] [phone] Pharmacist Internal Medicine 06/15/23 documented as of this encounter
--- OUTSIDE RECORDS SUMMARY | 2025-03-27 15:49 | XMS_ITS | Encounter Summary ---
Author Organization [facility] Address [address] [facility] [address] [place] [address] Phone Care Team Providers Care Environmental Engineering Aide Name Role Phone Joycelyn Brothers DO Primary Care Provider Ema ilva Encounter Details Date Type Department Care Team (Late st Contact Info) Description 05/29/2021 Orders Only [facility] [address] [place] [phone] Alex Garcia MD Chronic kidney disease stage [...] documented in this encounter Care Teams Environmental Engineering Aide Relationship Specialty Start Date End Date Joycelyn Brothers DO PCP - General 11/30/20 documented as of this encounter
--- OUTSIDE RECORDS SUMMARY | 2025-03-27 15:49 | XMS_ITS | Encounter Summary ---
Author Organization [employer] Address [address] [facility] 7t [place] [address] Care Team Providers Care Felt Hat Inspector And Packer Name Role Phone Sherry Ward MD Primary Care Provider [phone] Robe Parker PharmD Unavailable [phone] Encounter Details Date Type Department Care Team (Late st Contact Info) Description 11/04/2022 Orders Only [facility] [address] [place] [address] Sharon Ko, RN Social History Tobacco Use [...] on filedocumented in this encounter Care Teams Felt Hat Inspector And Packer Relationship Specialty Start Date End Date Sherry Ward MD [address] [place] [address] PCP - General Family Medicine 11/20/18 12/17/23 Robe Parker, PharmD [address] [place] [address] Pharmacist Internal Medicine 06/15/23 documented as of this encounter
--- OUTSIDE RECORDS SUMMARY | 2025-03-27 15:49 | XMS_ITS | Encounter Summary ---
Author Organization [employer] Address [address] [facility] 7t [place] [address] Care Team Providers Care Rawhide Bone Roller Name Role Phone Sherry Ward MD Primary Care Provider [phone] Robe Parker PharmD Unavailable [phone] Encounter Details Date Type Department Care Team (Late st Contact Info) Description 01/23/2023 Orders Only [facility] [address] [place] [phone] Nivia Serrato MD 230 [place], [place] [phone] Hyperkalemia (Primary Dx) Social History Tobacco Use [...] Hyperpotassemia documented in this encounter Care Teams Rawhide Bone Roller Relationship Specialty Start Date End Date Sherry Ward MD [address] [place] [phone] PCP - General Family Medicine 11/20/18 12/17/23 Robe Parker, PharmD [address] [place] [phone] Pharmacist Internal Medicine 06/15/23 documented as of this encounter
--- OUTSIDE RECORDS SUMMARY | 2025-03-27 15:49 | XMS_ITS | Encounter Summary ---
Author Organization [employer] Address [address] [facility] 7t [place] [address] Care Team Providers Care Lab Support Service Tech Name Role Phone Sherry Ward MD Primary Care Provider [phone] Robe Parker PharmD Unavailable [phone] Reason for Visit * Reason Onset Date Comments Lab Request 01/16/2023 Patient walked i n requesting for lab examination to see potassium levels. Patient has been on kayexalate for a month already and would like to see how his levels are doing. Encounter Details Date Type Department Care Team (Late st Contact Info) Description 01/16/2023 Telephone [facility] 230 [place], [place] [phone] Sherry Ward MD [address] [place], [place] [phone] Lab Request (Patient walked in requesting for [...] [place] [facility] Informed we would have to [...] on filedocumented in this encounter Care Teams Lab Support Service Tech Relationship Specialty Start Date End Date Sherry Ward MD [address] [place] [phone] PCP - General Family Medicine 11/20/18 12/17/23 Robe Parker, PharmD [address] [place] [address] Pharmacist Internal Medicine 06/15/23 documented as of this encounter
--- OUTSIDE RECORDS SUMMARY | 2025-03-27 15:49 | XMS_ITS | Encounter Summary ---
Author Organization [employer] Address [address] [facility] 7t [place] [address] Care Team Providers Care Shale Planer Operator Name Role Phone Robe Parker PharmD Unavailable [phone] Reason for Visit * Reason Comments Med Refill Encounter Details Date Type Department Care Team ([facility] st Contact Info) Description 01/11/2024 Refill [facility] [address] [place] [address] Jaqui Chowdary MD [address] [employer], [place] [phone] Social History Tobacco Use Types Packs/Day Years [...] on filedocumented in this encounter Care Teams Shale Planer Operator Relationship Specialty Start Date End Date Robe Parker PharmD [address] [place] [phone] Pharmacist Internal Medicine 06/15/23 documented as of this encounter
--- OUTSIDE RECORDS SUMMARY | 2025-03-27 15:49 | XMS_ITS | Encounter Summary ---
Author Organization [employer] Address [address] [facility] 7t [place] [address] Care Team Providers Care Auto Claims Adjuster Name Role Phone Sherry Ward MD Primary Care Provider [phone] Robe Parker PharmD Unavailable [phone] Reason for Visit * Reason Onset Date Comments triage 11/25/2022 Encounter Details Date Type Department Care Team ([facility] st Contact Info) Description 11/25/2022 Telephone [facility] 230 [place], [place] [phone] Sherry Ward MD [address] [place], [place] [phone] triage Social History Tobacco Use Types Packs/Day [...] 11/25/2022 4:06 PM EST Triage call with Piehole Backfiller [place] [id number] Pt reports son came over this morning [...] on filedocumented in this encounter Care Teams Auto Claims Adjuster Relationship Specialty Start Date End Date Sherry Ward MD [address] [place] [address] PCP - General Family Medicine 11/20/18 12/17/23 Robe Parker, IrisD [address] [place] [address] Pharmacist Internal Medicine 06/15/23 documented as of this encounter
--- OUTSIDE RECORDS SUMMARY | 2025-03-27 15:49 | XMS_ITS | Clinical Summary ---
Author Organization [facility] Address [address] [facility] [address] [place] [address] Phone Care Team Providers Care Radiator Mechanic Name Role Phone Joycelyn Brothers DO Primary [...] adenomatous polyp of colon 01/26/2024 Tinnitus 03/21/2023 FDC current use of anticoagulant Overview (01/26/2024): Last Assessment & Plan: - indication: Atrial fibrilation - medication: warfarin - monitored by [facility] Anticoagulation Clinic - most recent INR 1.6 [...] 04/02/2021 Overview (01/26/2024): Last Assessment & Plan: -Lion Hunter: Dr. Roland, last seen in 12/27/21 -Baseline SCr 2.4-2.8; eGFR 22-26, CrCl 28.5 -Most recent lab: 08/05/22 K 5.2, BUN 46, SCr 2.48; eGFR 26 -Avoid nephrotoxic drugs/substances and behaviors, including NSAIDs use. -Renal dose medications. Tinea pedis 04/30/2018 Ischemic heart disease 04/30/2018 Overview (01/26/2024): Last Assessment & Plan: -Naval Engineer, Dr. Cain, seen on 11/10/22 -TIA in January 2018. Dx Afib. Started on Coumadin. -03/14/18 BRITTANY to distal RCA. Completed uninterrupted Plavix and Coumadin therapy for 1 year. Plan was to swithc Plavix to ASA. Pt is not on ASA or Plavix at this time because his CAD is stable per lab systems analyst. - Last echo in 12/28/21: Normal LV function, EF 55-60%. slight decrease from last echo. mild GERD reguigitation -Continue current medications History of placement of stent for coronary arter y disease 04/30/2018 Chronic atrial fibrillation 02/09/2018 Overview (01/26/2024): Last Assessment & Plan: A-fib today, rate controlled. pt is usually asymptomatic whether he is bradycardia and tachycardia -his lab systems analyst recommends rate control rather than rhythm control - Continue rate control with metoprolol tartrate 100 mg bid - Continue digoxin 125 mcg daily - Continue warfarin, which is monitored by [facility] Anticoagulation clinic -- Treatment Hx: --Previously on [...] 49 Years) Discontinued 03/21/2016, 06/18/2015, 04/14/2010 Insurance [employer] ([id number]) [address] [place] [id number] [facility] morphCARD ([id number]) [place] [address] Care Teams Radiator Mechanic Relationship Specialty Start Date End Date Joycelyn Brothers DO PCP - General 11/30/20
--- OUTSIDE RECORDS SUMMARY | 2025-03-27 15:49 | XMS_ITS | Encounter Summary ---
Author Organization [employer] Address [address] [facility] [address] 7[address] [place] [address] Care Team Providers Care Erp Pm Name Role Phone Sherry Ward MD Primary Care Provider [phone] Robe Parker PharmD Unavailable [phone] Encounter Details Date Type Department Care Team (Late st Contact Info) Description 11/02/2023 Orders Only [facility] 230 [place], [place] [phone] Sherry Ward MD [address] [place], [place] [phone] Left foot pain (Primary Dx) Social History [...] limb documented in this encounter Care Teams Erp Pm Relationship Specialty Start Date End Date Sherry Ward MD [address] [place] [address] PCP - General Family Medicine 11/20/18 12/17/23 Robe Parker, PharmD [address] [place] [address] Pharmacist Internal Medicine 06/15/23 documented as of this encounter
== END 2025-03-27 15:45 | disposition home or self-care (01) ==
LOC: HO.HMCH 15:16
PROVIDERS: PCP Physician Assistant; Visit Provider Physician Assistant
DX: N18.5 Chronic kidney disease, stage 5 (principal); E87.5 Hyperkalemia; I25.10 Atherosclerotic heart disease of native coronary artery without angina pectoris

== ENCOUNTER → 2025-03-27 15:15 | Outpatient (BNVA) | payer OTHER, SELFPAY | PROVIDERS: PCP Physician Assistant; Visit Provider Physician Assistant | DX: N18.5 Chronic kidney disease, stage 5 (principal); I25.10 Atherosclerotic heart disease of native coronary artery without angina pectoris; E78.5 Hyperlipidemia, unspecified | CPT/HCPCS: 96127; 99212 ==

== ENCOUNTER 2025-04-09 11:12 | Outpatient (AMB) | payer OTHER, SELFPAY ==
[2025-04-09 11:21] LABS: ~PT, ~INR - Anti Coag Clinic 3.8 (0.9-1.1)
--- NOTE | 2025-04-09 11:31 | MHC.OFFVISCO ---
Intake Intake Visit Reasons: Anticoagulation Allergies lisinopril [LISINOPRIL] Allergy (Severe, Verified 04/09/25 11:16) ACUTE KIDNEY INJURY oxycodone [Percocet] Allergy (Intermediate, Verified 04/09/25 11:16) agitation codeine [CODEINE] Allergy (Unknown, Verified 04/09/25 11:16) AGITATION morphine [MORPHINE] Allergy (Unknown, Verified 04/09/25 11:16) AGITATION, confusion From PERCOCET Allergy (Unknown, Uncoded 03/27/25 15:24) AGITATION Medication List - Last Reconciled 04/09/25 by Elma Choudhury RN amlodipine 2.5 mg PO DAILY atorvastatin 80 mg PO QAM cholecalciferol (vitamin D3) 25 mcg PO DAILY compression socks, large As directed febuxostat (Uloric) 40 mg PO DAILY fluticasone propionate 50 mcg/actuation 1 spray intranasal DAILY 30 days furosemide (Lasix) 40 mg PO QAM 90 days gabapentin 200 mg (2 x 100 mg) PO BEDTIME 30 days meclizine 25 mg PO TID PRN 30 days metoprolol tartrate 50 mg See Protocol PO BID 90 days prednisone 10 mg PO ONCE PRN simethicone 180 mg PO QID 30 days sodium zirconium cyclosilicate (Lokelma) 10 grams orally Every Monday and ; warfarin 7.5 mg See Protocol PO MO warfarin 5 mg See Protocol PO SUTUWETHFRSA Nursing Note NO CP,SOB,DIET/MED CHANGES,FALLS OR SX OF BLEEDING. HOLD WARFARIN TODAY THEN RESUME USUAL DOSE AND FOLLOW-UP IN 3 WEEKS. GOOD UNDERSTANDING OF DOSING INSTR. LAWSON 2-3X WEEKLY Anti-Coag Initial Assessment Social Hx Patient Tobacco Use Status: Former Tobacco user Tobacco use type: Cigarette alcohol intake: former Alcohol intake frequency: does not drink Coding Level of Care Code Est Patient Level 1 Diagnoses Current use of anticoagulant therapy Z79.01 Assessment & Plan Assessment & Plan (1) Current use of anticoagulant therapy: Code(s): Z79.01 - snf (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
--- OUTSIDE RECORDS SUMMARY | 2025-04-09 12:31 | XMS_ITS | Clinical Summary ---
Author Organization [facility] Address [address] [place] [address] Phone Care Team Providers Care Metalworking Instructor Name Role Phone Joycelyn Brothers DO Primary [...] adenomatous polyp of colon 01/26/2024 Tinnitus 03/21/2023 jail current use of anticoagulant Overview (01/26/2024): Last Assessment & Plan: - indication: Atrial fibrilation - medication: warfarin - monitored by [facility] - most recent INR 1.6 [...] 04/02/2021 Overview (01/26/2024): Last Assessment & Plan: -Cancer Program Coordinator: Dr. Roland, last seen in 12/27/21 -Baseline SCr 2.4-2.8; eGFR 22-26, CrCl 28.5 -Most recent lab: 08/05/22 K 5.2, BUN 46, SCr 2.48; eGFR 26 -Avoid nephrotoxic drugs/substances and behaviors, including NSAIDs use. -Renal dose medications. Tinea pedis 04/30/2018 Ischemic heart disease 04/30/2018 Overview (01/26/2024): Last Assessment & Plan: -Medical Coding Manager, Dr. Cain, seen on 11/10/22 -TIA in January 2018. Dx Afib. Started on Coumadin. -03/14/18 BRITTANY to distal RCA. Completed uninterrupted Plavix and Coumadin therapy for 1 year. Plan was to swithc Plavix to ASA. Pt is not on ASA or Plavix at this time because his CAD is stable per traffic incident management manager. - Last echo in 12/28/21: Normal LV function, EF 55-60%. slight decrease from last echo. mild GERD reguigitation -Continue current medications History of placement of stent for coronary arter y disease 04/30/2018 Chronic atrial fibrillation 02/09/2018 Overview (01/26/2024): Last Assessment & Plan: A-fib today, rate controlled. pt is usually asymptomatic whether he is bradycardia and tachycardia -his traffic incident management manager recommends rate control rather than rhythm control - Continue rate control with metoprolol tartrate 100 mg bid - Continue digoxin 125 mcg daily - Continue warfarin, which is monitored by [facility] -- Treatment Hx: --Previously on [...] 49 Years) Discontinued 03/21/2016, 06/18/2015, 04/14/2010 Insurance [employer] ([id number]) [address] [place] [id number] [facility] ([id number]) Care Teams Metalworking Instructor Relationship Specialty Start Date End Date Joycelyn Brothers DO PCP - General 11/30/20
--- OUTSIDE RECORDS SUMMARY | 2025-04-09 12:31 | XMS_ITS | Encounter Summary ---
Author Organization [facility] Address [address] [facility] [address] [place] [address] Phone Care Team Providers Care Food And Beverage Manager Name Role Phone Joycelyn Brothers DO Primary Care Provider Ema ilable Encounter Details Date Type Department Care Team (Late st Contact Info) Description 05/29/2021 Orders Only [facility] [address] [place] [phone] Alex Garcia MD Chronic kidney disease stage [...] (HCC) documented in this encounter Care Teams Food And Beverage Manager Relationship Specialty Start Date End Date Joycelyn Brothers DO PCP - General 11/30/20 documented as of this encounter
--- OUTSIDE RECORDS SUMMARY | 2025-04-09 12:31 | XMS_ITS | Encounter Summary ---
Author Organization [facility] Address [address] [place] [address] Phone Care Team Providers Care Overhead Distribution Engineer Name Role Phone Joycelyn Brothers DO Primary Care Provider Unava ilable Encounter Details Date Type Department Care Team (Late st Contact Info) Description 11/08/2022 Telephone [facility] [address] [place] [address] Alex Garcia MD Social History [...] She also wants to add that his rat culturist started him on digoxin 0.1 mg daily. Please advise Thank you CB# [phone] documented in this encounter Plan of Treatment Not on file documented as of this encounter Visit Diagnoses Not on filedocumented in this encounter Care Teams Overhead Distribution Engineer Relationship Specialty Start Date End Date Joycelyn Brothers DO PCP - General 11/30/20 documented as of this encounter
--- OUTSIDE RECORDS SUMMARY | 2025-04-09 12:31 | XMS_ITS | Patient Health Record ---
Author Organization [facility] Address [address] [place] [address] Care Team Providers Care Seat Covers Trimmer Name Role Phone Joycelyn Brothers M.D. 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 [address] [place] [address] [id number] SEMAJ PATTERSON Self - patient is the insured Medical (General) History Medical History History ICD Code Kidney disease-followed by Dr. Tae johansen HTN Denies [place],CVA,Lung disease Hyperlipidemia Rx'd for H.pylori in 06/2012 [...]
== END 2025-04-09 11:32 | disposition home or self-care (01) ==
LOC: HO.ACS 11:12
PROVIDERS: PCP Physician Assistant; Visit Provider Internal Medicine Medical Oncology
DX: Z79.01 Long term (current) use of anticoagulants (principal)

== ENCOUNTER → 2025-04-09 11:12 | Outpatient (BNVA) | payer OTHER, SELFPAY | PROVIDERS: PCP Physician Assistant; Visit Provider Internal Medicine Medical Oncology | DX: I48.0 Paroxysmal atrial fibrillation (principal); Z79.01 Long term (current) use of anticoagulants; Z51.81 Encounter for therapeutic drug level monitoring | CPT/HCPCS: 85610; 99211 ==

== ENCOUNTER 2025-04-15 12:27 | Outpatient (AMB) | payer OTHER, SELFPAY ==
[2025-04-15 12:34] VITALS: BMI 29.4
--- NOTE | 2025-04-15 12:34 | A.OFFVIS_ITS ---
VS Expanded 04/15/25 12:34 Height 5 ft 6 in Weight 181 lb 14.102 oz BMI 29.4 Intake Visit Reasons: Potassium Allergies lisinopril [LISINOPRIL] Allergy (Severe, Verified 04/09/25 11:16) ACUTE KIDNEY INJURY oxycodone [Percocet] Allergy (Intermediate, Verified 04/09/25 11:16) agitation codeine [CODEINE] Allergy (Unknown, Verified 04/09/25 11:16) AGITATION morphine [MORPHINE] Allergy (Unknown, Verified 04/09/25 11:16) AGITATION, confusion From PERCOCET Allergy (Unknown, Uncoded 03/27/25 15:24) AGITATION Nutrition Presentation Details: Pt presents for MNT f/u for CKD stage 5 and review on low potassium Pt reports eating out the majority of the time , fast food meals other times fam member prepare meals more apt for CKD/low potassium Pt reports trying different types of teas (parsley tea a couple of times a week) Pt denies vomiting Reports diarrhea with potassium binder 11 am : subway sand on white bread, tomato, onions,spinach cucumber ,water 6 pm rice chicken cucumber and carrots, water 8-9 pm rice cereal and 1/2 and 1/2 water:16- 24 oz/day, 1 c of tea or coffee /day fruits: 0-2x/wk fish: 1-2 x/wk dairy : using falf and half once/day fried foods: 3-4 x/wk fluids: 16 -24oz/day (coffee once a day, half/half/water with lemon BS Monitoring Most Recent Diabetes Results: No Data to Display DRP-Kjoqzjr-Px.Jeor Equation Height: 5 ft 6 in Weight: 182 lb Resting Metabolic Rate: 1508.46 Calculated Activity Level: Sedentary Calories Needed to Maintain Weight: 1810.15 Diagnosis Nutrition problem #1: food nutri know defi As related to (etiology) #1: diagnosis As evidenced by (sign/symptom) #1: knowledge deficit of diet [facility] Medical History Allergies Sinus bradycardia Pre-op examination Annual physical exam History of TIA (transient ischemic attack) Gout Personal history of nicotine dependence Chronic kidney disease, stage 3 unspecified Benign prostatic hyperplasia with lower urinary tract symptoms HTN (hypertension) CAD (coronary artery disease) Paroxysmal atrial fibrillation Surgical History Stented coronary artery Hx of colonoscopy Hx of cardiac cath Hx of cystoscopy History of esophagogastroduodenoscopy (EGD) Hx of cataract extraction Family History Mother CAD (coronary artery disease) Diabetes HTN (hypertension) Father CAD (coronary artery disease) Diabetes HTN (hypertension) Social History Household Members: None Housing: Apartment Do you presently have visiting nurse or other home services: No Alcohol intake: former Patient Tobacco Use Status: Former Tobacco user Tobacco use type: Cigarette Years Smoked: 40 +/- e-Cigarette/Vaping Use: Never Used Second Hand Smoke Exposure: No service: No Current occupational status: retired and disabled Cognitive needs: No Hearing needs: No Vision needs: Yes Assessment & Plan Assessment & Plan (1) CKD (chronic kidney disease) stage 5, GFR less than 15 ml/min: Code(s): N18.5 - Chronic kidney disease, stage 5 Category: Medical Plan: Wt: 83 Kg ( 04/13 ) Est kcal needs as per MSJ: 9081-5342 (40% carb, 30% protein/fat) Est fluid needs as per 25-30 ml/d: 2500 Est prot per day as per 1 g/kg bw: 80 Recommend fiber intake : 8-10 g per day and gradually increase to 25-28 g per day for women and 35-38 g for men or as tolerated Recommend sodium intake per day : less than 2000 mg Educated patient on: ( R = reviewed V = verbalizes understanding N/R = needs review N/A = not applicable * Food sources of carbohydrate, adequate serving sizes and its role in various health conditions: R V N/R * Differences between complex carbohydrates a simple carbohydrates, role of fiber in diet: R V N/R * Lean protein sources of foods: R V NR * Differences between types of fats and role in diet (mono on saturated fat fatty acids, saturated fatty acids, trans fats): R * Food sources of sodium in salt and healthy modifications for heart health in kidney health: R V R/V * Vitamins and minerals: R * Healthy plate method concept: R V N/R * Physical activity: Benefits a precaution: R V N/R * Hypoglycemia protocol (rule of 15): R V N/R * Dietary prevention of Hyperglycemia: R low potassium food sources and variety in diet diet plan consisting of 2500 -3000 mg K /day Patient Instructions: Choose low fiber rice/pasta with lean protein and low potassium sources of vegetable, see list of meal options - low fiber starches may help bowel movements, otherwise discuss diarrhea concerns with your doctor -try lower potassium teas (leonie, chamomile, mint, hibiscus as examples, have less potassium than parsley tea) Coding Level of Care Code Nutr Indiv Subseq (72244) Diagnoses CKD (chronic kidney disease) stage 5, GFR less than 15 ml/min N18.5 Time Spent (min) 30
--- OUTSIDE RECORDS SUMMARY | 2025-04-15 12:35 | XMS_ITS | Patient Health Record ---
Author Organization [facility] Address [address] [place] [address] Care Team Providers Care Aeronautical Test Engineer Name Role Phone Joycelyn Brothers M.D. 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 [address] [place] [address] [id number] SEMAJ PATTERSON Self - patient is the insured Medical (General) History Medical History History ICD Code Kidney disease-followed by Dr. Tae johansen HTN Denies [place],CVA,Lung disease Hyperlipidemia Rx'd for H.pylori in 06/2012 [...]
[2025-04-15 14:32] VITALS: BMI 29.4
== END 2025-04-15 13:07 | disposition home or self-care (01) ==
LOC: HO.ENCR 12:28
PROVIDERS: PCP Physician Assistant; Visit Provider Dietitian, Registered
DX: N18.5 Chronic kidney disease, stage 5 (principal)

== ENCOUNTER → 2025-04-15 12:27 | Outpatient (BNVA) | payer OTHER, SELFPAY | PROVIDERS: PCP Physician Assistant; Visit Provider Dietitian, Registered | DX: N18.5 Chronic kidney disease, stage 5 (principal); Z71.3 Dietary counseling and surveillance | CPT/HCPCS: 97803 ==

== ENCOUNTER 2025-04-22 14:08 | Outpatient (REF) | payer OTHER, SELFPAY ==
[2025-04-22 15:42] LABS: Anion Gap 13 (12-20); Blood Urea Nitrogen 77 mg/dL (9-16); Calcium 8.8 mg/dL (8.4-10.2); Carbon Dioxide 26 mmol/L (22-29); Chloride 108 mmol/L (96-108); Estimated Glomerular Filt Rate 13; Glucose Random 138 mg/dL (60-115); Potassium 4.6 mmol/L (3.3-5.1); Sodium 142 mmol/L (135-145)
--- OUTSIDE RECORDS SUMMARY | 2025-04-22 15:57 | XMS_ITS | Patient Health Record ---
Author Organization [facility] Address [address] [place] [address] Care Team Providers Care Pc Tech Name Role Phone Joycelyn Brothers M.D. 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 [address] [place] [address] [id number] SEMAJ PATTERSON Self - patient is the [...]
== END 2025-04-22 14:09 | disposition home or self-care (01) ==
LOC: HO.LAB 14:08
PROVIDERS: PCP Physician Assistant; Visit Provider Internal Medicine Hypertension Specialist
DX: N18.5 Chronic kidney disease, stage 5 (principal)
CPT/HCPCS: 36415; 80048

== ENCOUNTER 2025-04-28 14:36 | Outpatient (AMB) | payer OTHER, SELFPAY ==
--- NOTE | 2025-04-28 14:40 | HO.NEPHOV_ITS ---
Vital Signs 04/28/25 14:41 Height 5 ft 6 in Weight 185 lb 2 oz BMI 29.9 BP 158/90 H Blood Pressure Location Lt brachial Position Sitting Pulse 53 Pulse Source Pulse Oximeter Pulse Oximetry (%) 98 Oxygen Delivery Method Room Air Intake Visit Reasons: F/U LVM Roller Bearing Inspector Required: Yes Roller Bearing Inspector Language: Assistant District Attorney Services: Roller Bearing Inspector Offered & Declined ([facility] Roller Bearing Inspector services refused. ) Accompanied by: Son Allergies lisinopril [LISINOPRIL] Allergy (Severe, Verified 04/28/25 14:40) ACUTE KIDNEY INJURY oxycodone [Percocet] Allergy (Intermediate, Verified 04/28/25 14:40) agitation codeine [CODEINE] Allergy (Unknown, Verified 04/28/25 14:40) AGITATION morphine [MORPHINE] Allergy (Unknown, Verified 04/28/25 14:40) AGITATION, confusion From PERCOCET Allergy (Unknown, Uncoded 03/27/25 15:24) AGITATION Medication List - Last Reconciled 04/28/25 by Alex Garcia MD amlodipine 2.5 mg PO DAILY atorvastatin 80 mg PO QAM cholecalciferol (vitamin D3) 25 mcg PO DAILY compression socks, large As directed febuxostat (Uloric) 40 mg PO DAILY fluticasone propionate 50 mcg/actuation 1 spray intranasal DAILY 30 days furosemide (Lasix) 40 mg PO QAM 90 days gabapentin 200 mg (2 x 100 mg) PO BEDTIME 30 days meclizine 25 mg PO TID PRN 30 days metoprolol tartrate 50 mg See Protocol PO BID 90 days prednisone 10 mg PO ONCE PRN simethicone 180 mg PO QID 30 days sodium zirconium cyclosilicate (Lokelma) 10 grams orally Every Monday and ; warfarin 7.5 mg See Protocol PO MO warfarin 5 mg See Protocol PO SUTUWETHFRSA HPI Comments Details: Elderly man with 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 He is here for regular follow-up. Accompanied by son. History of gout he was treated with a course of prednisone. He took Uloric for a month and stopped it [place]ly returned from [place] Ate plenty of Papaya and fruits/Nuts 06/10/24 ;ON Uloric; Gout under control ;Off LAsix ;still has foot pain - mostly in heel 10/14/24 In mid August he had preparation for colonoscopy. He had significant diarrhea. Colonoscopy was canceled. REcently hospitalized ;Had GONZALO with fluid overload ;REsponded to IV diuretics ;Wt down to 184 ;No dyspnea ;NO nausea or vomiting 12/24/24 ;Feels better. No new issues ;Gained weight ;Accompanied by son 04/28/25 75-year-old male presenting with chronic disease management, chiefly concerning Chronic Interstitial Nephritis. Previously identified through biopsy, the patient has been treated with prednisone. His current lab tests show stable renal function, consistent at 13%, improved from an 8% reading. This stability rosas a positive trend in his condition. The patient notes recent chills over the past two days but reports no fever. He denies any urinary complications, emphasizing active urination. Nutrition management remains a tamayo focus, with emphasis on monitoring potassium and salt intake; maintaining potassium at levels below 5.2 mmol/L. Currently, the patient is responding well to dietary recommendations, continuing the use of prescribed potassium-lowering powder to aid in maintaining these levels. [facility] Medical History Allergies Sinus bradycardia Pre-op examination Annual physical exam History of TIA (transient ischemic attack) Gout Personal history of nicotine dependence Chronic kidney disease, stage 3 unspecified Benign prostatic hyperplasia with lower urinary tract symptoms HTN (hypertension) CAD (coronary artery disease) Paroxysmal atrial fibrillation Surgical History Stented coronary artery Hx of colonoscopy Hx of cardiac cath Hx of cystoscopy History of esophagogastroduodenoscopy (EGD) Hx of cataract extraction Family History Mother CAD (coronary artery disease) Diabetes HTN (hypertension) Father CAD (coronary artery disease) Diabetes HTN (hypertension) Social History Household Members: None Housing: Apartment Do you presently have visiting nurse or other home services: No Alcohol intake: former Patient Tobacco Use Status: Former Tobacco user Tobacco use type: Cigarette Years Smoked: 40 +/- e-Cigarette/Vaping Use: Never Used Second Hand Smoke Exposure: No service: No Current occupational status: retired and disabled Cognitive needs: No Hearing needs: No Vision needs: Yes Physical Exam Vital Signs: Last Vital Signs Pulse 53 04/28/25 14:41 BP 158/90 H 04/28/25 14:41 Pulse Ox 98 04/28/25 14:41 Oxygen Delivery Method Room Air 04/28/25 14:41 BMI result Body Mass Index 29.9 Comfortable Neck supple no JVD. Lungs entry equal no rales. Heart S1-S2 heard no gallop or rub. Abdomen soft nontender. Neuro alert awake oriented. No asterixis. Extremities Trace edema. Results Reviewed Nephrology Results: Sodium 142 mmol/L (135-145) 04/22/25 Potassium 4.6 mmol/L (3.3-5.1) 04/22/25 Chloride 108 mmol/L (96-108) 04/22/25 Carbon Dioxide 26 mmol/L (22-29) 04/22/25 BUN 77 mg/dL (9-16) H 04/22/25 Creatinine 4.43 mg/dL (0.5-1.4) H* 04/22/25 Calcium 8.8 mg/dL (8.4-10.2) 04/22/25 Assessment & Plan Assessment & Plan (1) CKD (chronic kidney disease) stage 5, GFR less than 15 ml/min: Code(s): N18.5 - Chronic kidney disease, stage 5 Category: Medical Plan: Chronic disease due to interstitial nephritis by biopsy. Initial biopsy was done only [facility] and no tissue was obtained. Repeat biopsy was done and was [facility] which revealed interstitial nephritis with global sclerosis. Sustained another episode of GONZALO. At present no signs or symptoms of uremia No absolute indication for dialysis yet Fluid status acceptable Continue to avoid nephrotoxic agents. Will monitor renal function closely (2) Acute kidney injury superimposed on CKD: Code(s): N17.9 - Acute kidney failure, unspecified; N18.9 - Chronic kidney disease, unspecified Category: Medical Plan: Due to tubular injury. Marginal improvement (3) HTN (hypertension): Code(s): I10 - Essential (primary) hypertension Category: Medical Qualifiers: Hypertension type: primary hypertension Qualified Code(s): I10 - Essential (primary) hypertension Plan: Blood pressure is well controlled Low-salt diet (4) Gout: Code(s): M10.9 - Gout, unspecified Category: Medical Plan: Seems to be under control. Keep Uloric to lower uric acid We discussed low purine diet (5) Hyperkalemia: Code(s): E87.5 - Hyperkalemia Category: Medical Plan: K was 5.2 Reviewed diet Discussed Low K diet Keep LOKELMA 5 gm PO 2 x week Plan He will be a good candidate for CCPD Referred for dialysis education Orders: Orders Basic Metabolic Panel 3 Months N18.5 - Chronic kidney disease, stage 5 Parathyroid Hormone Intact 3 Months N18.5 - Chronic kidney disease, stage 5 Complete Blood Count no Diff 3 Months N18.5 - Chronic kidney disease, stage 5 Phosphorus 3 Months N18.5 - Chronic kidney disease, stage 5 Medications: Refilled sodium zirconium cyclosilicate (Lokelma) 10 grams orally Every Monday and ; 11 ea 3RF Coding Level of Care Code Est Pt Level 4 (90347) Diagnoses CKD (chronic kidney disease) stage 5, GFR less than 15 ml/min N18.5 Acute kidney injury superimposed on CKD N17.9; N18.9 Primary hypertension I10 Hypertension type: primary hypertension Gout M10.9 Hyperkalemia E87.5
[2025-04-28 14:41] VITALS: BP 158/90; PULSE 53; O2SAT 98; BMI 29.9
--- OUTSIDE RECORDS SUMMARY | 2025-04-28 16:27 | XMS_ITS | Patient Health Record ---
Author Organization [facility] Address [address] [place] [address] Care Team Providers Care Monotype Keyboard Operator Name Role Phone Joycelyn Brothers M.D. 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 [address] [place] [address] [id number] SEMAJ PATTERSON Self - patient is the insured Medical (General) History Medical History History ICD Code Kidney disease-followed by Dr. Tae johansen HTN Denies [place],CVA,Lung disease Hyperlipidemia Rx'd for H.pylori in 06/2012 [...]
== END 2025-04-28 14:50 | disposition home or self-care (01) ==
LOC: HO.HKA 14:36
PROVIDERS: PCP Physician Assistant; Visit Provider Internal Medicine Hypertension Specialist
DX: I12.9 Hypertensive chronic kidney disease with stage 1 through stage 4 chronic kidney disease, or unspecified chronic kidney disease (principal); N18.5 Chronic kidney disease, stage 5; N17.9 Acute kidney failure, unspecified; M10.9 Gout, unspecified; E87.5 Hyperkalemia
CPT/HCPCS: 99214

== ENCOUNTER → 2025-04-28 14:36 | Outpatient (BNVA) | payer OTHER, SELFPAY | PROVIDERS: PCP Physician Assistant; Visit Provider Internal Medicine Hypertension Specialist | DX: I12.9 Hypertensive chronic kidney disease with stage 1 through stage 4 chronic kidney disease, or unspecified chronic kidney disease (principal); N18.5 Chronic kidney disease, stage 5; N17.9 Acute kidney failure, unspecified; M10.9 Gout, unspecified; E87.5 Hyperkalemia | CPT/HCPCS: 99212 ==

== ENCOUNTER 2025-05-05 11:09 | Outpatient (AMB) | payer OTHER, SELFPAY ==
--- NOTE | 2025-05-05 11:17 | MHC.OFFVISCO ---
Intake Intake Visit Reasons: Anticoagulation Allergies lisinopril [LISINOPRIL] Allergy (Severe, Verified 05/05/25 11:14) ACUTE KIDNEY INJURY oxycodone [Percocet] Allergy (Intermediate, Verified 05/05/25 11:14) agitation codeine [CODEINE] Allergy (Unknown, Verified 05/05/25 11:14) AGITATION morphine [MORPHINE] Allergy (Unknown, Verified 05/05/25 11:14) AGITATION, confusion From PERCOCET Allergy (Unknown, Uncoded 05/05/25 11:14) AGITATION Medication List - Last Reconciled 05/05/25 by Lisa White RN amlodipine 2.5 mg PO DAILY atorvastatin 80 mg PO QAM cholecalciferol (vitamin D3) 25 mcg PO DAILY compression socks, large As directed febuxostat (Uloric) 40 mg PO DAILY fluticasone propionate 50 mcg/actuation 1 spray intranasal DAILY 30 days furosemide (Lasix) 40 mg PO QAM 90 days gabapentin 200 mg (2 x 100 mg) PO BEDTIME 30 days meclizine 25 mg PO TID PRN 30 days metoprolol tartrate 50 mg See Protocol PO BID 90 days prednisone 10 mg PO ONCE PRN simethicone 180 mg PO QID 30 days sodium zirconium cyclosilicate (Lokelma) 10 grams orally Every Monday and ; warfarin 7.5 mg See Protocol PO MO warfarin 5 mg See Protocol PO SUTUWETHFRSA Nursing Note INR: 2.7- in therapeutic range of 2-3 Medications and supplements reviewed No changes in health, diet, medications, or supplements, Denies any signs and symptoms of bleeding or bruising or clotting. Bleeding, bruising, clotting discussed Nutritional guidance given Dose: 7.5mg x 1. 5mg x 6 F/U INR: pt req 4 weeks Patient verbalizes understanding of instructions given Anti-Coag Initial Assessment Social Hx Patient Tobacco Use Status: Former Tobacco user Tobacco use type: Cigarette alcohol intake: former Alcohol intake frequency: does not drink Coding Level of Care Code Est Patient Level 1 Diagnoses Current use of anticoagulant therapy Z79.01 Assessment & Plan Assessment & Plan (1) Current use of anticoagulant therapy: Code(s): Z79.01 - custodial (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
[2025-05-05 11:18] LABS: Prothrombin Time Whole Bld POC 32.7 sec (11.1-13.5); ~PT, ~INR - Anti Coag Clinic 2.7 (0.9-1.1)
--- OUTSIDE RECORDS SUMMARY | 2025-05-05 12:43 | XMS_ITS | Patient Health Record ---
Author Organization [facility] Address [address] [place] [address] Care Team Providers Care Applications Intern Name Role Phone Joycelyn Brothers M.D. 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 [address] [place] [address] [id number] SEMAJ PATTERSON Self - patient is the insured Medical (General) History Medical History History ICD Code Kidney disease-followed by Dr. Tae johansen HTN Denies [place],CVA,Lung disease Hyperlipidemia Rx'd for H.pylori in 06/2012 [...]
== END 2025-05-05 11:22 | disposition home or self-care (01) ==
LOC: HO.ACS 11:09
PROVIDERS: PCP Physician Assistant; Visit Provider Internal Medicine Medical Oncology
DX: Z79.01 Long term (current) use of anticoagulants (principal)

== ENCOUNTER → 2025-05-05 11:09 | Outpatient (BNVA) | payer OTHER, SELFPAY | PROVIDERS: PCP Physician Assistant; Visit Provider Internal Medicine Medical Oncology | DX: I48.0 Paroxysmal atrial fibrillation (principal); Z79.01 Long term (current) use of anticoagulants; Z51.81 Encounter for therapeutic drug level monitoring | CPT/HCPCS: 85610; 99211 ==

== ENCOUNTER → 2025-05-30 12:58 | Outpatient (REF) | payer OTHER, SELFPAY ==
--- OUTSIDE RECORDS SUMMARY | 2025-05-30 13:01 | XMS_ITS | Patient Health Record ---
Author Organization [facility] Address [address] [place] [address] Care Team Providers Care Profile Saw Setup Operator Name Role Phone Joycelyn Brothers M.D. 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 [address] [place] [address] [phone] [id number] SEMAJ PATTERSON Self - patient is the insured Medical (General) History Medical History History ICD Code Kidney disease-followed by Dr. Tae johansen HTN Denies [place],CVA,Lung disease Hyperlipidemia Rx'd for H.pylori in 06/2012 [...]
--- OUTSIDE RECORDS SUMMARY | 2025-05-30 13:01 | XMS_ITS | Clinical Summary ---
Author Organization [facility] Address [address] [place] [address] Phone Care Team Providers Care Engraver Letter Name Role Phone Joycelyn Brothers DO Primary [...] adenomatous polyp of colon 01/26/2024 Tinnitus 03/21/2023 long-term current use of anticoagulant Overview (01/26/2024): Last Assessment & Plan: - indication: Atrial fibrilation - medication: warfarin - monitored by [facility] - most recent [...] 04/02/2021 Overview (01/26/2024): Last Assessment & Plan: -Inspector Bicycle: Dr. Roland, last seen in 12/27/21 -Baseline SCr 2.4-2.8; eGFR 22-26, CrCl 28.5 -Most recent lab: 08/05/22 K 5.2, BUN 46, SCr 2.48; eGFR 26 -Avoid nephrotoxic drugs/substances and behaviors, including NSAIDs use. -Renal dose medications. Tinea pedis 04/30/2018 Ischemic heart disease 04/30/2018 Overview (01/26/2024): Last Assessment & Plan: -Maintenance Coordinator, Dr. Cain, seen on 11/10/22 -TIA in January 2018. Dx Afib. Started on Coumadin. -03/14/18 BRITTANY to distal RCA. Completed uninterrupted Plavix and Coumadin therapy for 1 year. Plan was to swithc Plavix to ASA. Pt is not on ASA or Plavix at this time because his CAD is stable per process camera operator. - Last echo in 12/28/21: Normal LV function, EF 55-60%. slight decrease from last echo. mild GERD reguigitation -Continue current medications History of placement of stent for coronary arter y disease 04/30/2018 Chronic atrial fibrillation 02/09/2018 Overview (01/26/2024): Last Assessment & Plan: A-fib today, rate controlled. pt is usually asymptomatic whether he is bradycardia and tachycardia -his process camera operator recommends rate control rather than rhythm control - Continue rate control with metoprolol tartrate 100 mg bid - Continue digoxin 125 mcg daily - Continue warfarin, which is monitored by [facility] -- Treatment Hx: [...] Visual Foot Exam 06/26/2023 Influenza Vaccine (#1) 2025 9, 08/13/2018, 09/06/2017, Additional history exists Hepatitis B Vaccine Aged Out 09/20/2010, 04/14/2010, 03/16/2010 No longer eligible based on patient's age to complete this topic Pneumococcal Vaccine: 50+ Years Completed 03/21/2016, 06/18/2015, 04/14/2010 Pneumococcal Vaccine: Peds (0 to 5 Years) and At-Risk Patients (6 to 49 Years) Discontinued 03/21/2016, 06/18/2015, 04/14/[address] [place] [id number] [employer] ([id number]) [address] [place] [phone] [facility] [employer] ([id number]) Care Teams Engraver Letter Relationship Specialty Start Date End Date Joycelyn Brothers DO PCP - General 11/30/20
--- OUTSIDE RECORDS SUMMARY | 2025-05-30 13:01 | XMS_ITS | Encounter Summary ---
Author Organization [employer] Address [address] [place] [address] [address] [place] [address] Care Team Providers Care Take Away Worker Name Role Phone Sherry Ward MD Primary Care Provider [phone] Robe Parker PharmD Unavailable [phone] Encounter Details Date Type Department Care Team (Late st Contact Info) Description 01/23/2023 Orders Only [facility] [address] [place] [address] Nivia Serrato MD [address] [place], [place] [phone] Hyperkalemia (Primary Dx) Social History Tobacco Use [...] Hyperpotassemia documented in this encounter Care Teams Take Away Worker Relationship Specialty Start Date End Date Sherry Ward MD [address] [place] [address] [phone] PCP - General Family Medicine 11/20/18 12/17/23 Robe Parker, PharmD [address] [place] [phone] Pharmacist Internal Medicine 06/15/23 documented as of this encounter
--- NOTE | 2025-05-30 13:14 | CA_ITS ---
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 The left ventricular systolic function is borderline reduced. The visually estimated ejection fraction is between 45-50%. - Normal right ventricular cavity size. There is mildly decreased right ventricular systolic function. - Normal right atrial pressure. Mild pulmonary hypertension is present. Findings Procedure Information Contrast agent, definity, is being given per protocol without apparent complications. Left Ventricle Normal left ventricular cavity size. The left ventricular systolic function is borderline reduced. The visually estimated ejection fraction is between 45-50%. There is no evidence of regional wall motion abnormalities. Diastolic function is indeterminate on the basis of available data. Right Ventricle Normal right ventricular cavity size. There is mildly decreased right ventricular systolic function. Atria The left atrium is severely dilated. The right atrium is mildly dilated. Aortic Valve There is a normal trileaflet aortic valve. There is mild calcification of the aortic valve. There is no aortic valve stenosis. There is no aortic valve regurgitation. Mitral Valve The mitral valve appears normal. There is mild to moderate mitral valve regurgitation. There is no mitral valve stenosis. Pulmonic Valve The pulmonic valve is normal. There is trace pulmonic valve regurgitation. Tricuspid Valve Normal tricuspid valve structure. There is trace tricuspid valve regurgitation. The right ventricular systolic pressure is 40 mmHg. Normal right atrial pressure. Mild pulmonary hypertension is present. Great Vessels All visible segments of the aorta are normal in size. The visualized portions of the pulmonary artery and branches are normal. Venous The inferior vena cava is dilated. Pericardium/Pleural There is no evidence of pericardial effusion. Prior Study Comparison Changes noted compared to prior study dated: 05/30/2024. EF 45 to 50%.no significant . Mild RV dysfunction. Measurements 2D Linear Measurements IVSd: 0.99 0.6-0.9/0.6-1.0 cm LVIDd: 4.50 3.9-5.3/4.2-5.9 cm LVIDd Index: 2.34 2.4-3.2/2.2-3.1 cm/m2 LVIDs: 3.79 2.0-3.6 cm LVPWd: 0.78 0.7-1.1 cm LV Mass: 161.34 67-162/88-224 g LV Mass Index: 84.03 43-95/49-115 g/m2 LVOT Diam: 2.00 3.0+(-)1.3 cm 2D Systolic Function EF 4C: 41.70 >55% EF 2C: 42.80 >55% EF BiP: 43.10 >55% Mitral Valve MV Pk E: 0.95 MV Decel Time: 128.00 E'Lateral: 7.47 E'Medial: 4.86 E/E' Med: 19.40 E/E' Lat: 12.70 PHT: 37.00 MVA PHT: 5.95 Decel [place]: 7.48 Aortic Valve AoV Pk Reuben: 1.37 AoV Mn Reuben: 0.92 AoV VTI: 0.23 AoV Pk Grad: 8.00 Aov Mn Grad: 4.00 REMY Cont.VTI: 1.64 LVOT LVOT Pk Reuben: 0.64 LVOT Mn Reuben: 0.41 LVOT VTI: 0.12 LVOT Pk Grad: 2.00 LVOT Mn Grad: 1.00 LVOT Diam: 2.00 LVOT Area: 3.14 Diastolic Function MV Pk E: 0.95 E'Medial: 4.86 E/E' Med: 19.40 E' Laterial: 7.47 E/E' Lat: 12.70 Right Ventricle TAPSE (mm): 11.20 TVS' Reuben: 8.52 Tricuspid Valve TR Pk Reuben: 2.48 TR Pk Grad: 25.00 RA Press: 15.00 RVSP: 40.00 Great Vessels Aorta Sinus of Valsalva: 3.62 2.0-3.5 cm Ao Asc: 3.70 2.1-3.4 cm Updated in Other Vendor System with Status of Final Artie Huntley MD electronically signed on 06/02/2025 12:34:54 PM with status of Final
== END ==
LOC: HO.CARD 12:58
PROVIDERS: PCP Physician Assistant; Visit Provider Internal Medicine Cardiovascular Disease
DX: I71.23 Aneurysm of the descending thoracic aorta, without rupture (principal); I25.10 Atherosclerotic heart disease of native coronary artery without angina pectoris
CPT/HCPCS: 93306; Q9957

== ENCOUNTER → 2025-05-30 13:14 | Outpatient (BNV) | payer OTHER, SELFPAY | PROVIDERS: PCP Physician Assistant; Visit Provider Internal Medicine Cardiovascular Disease | DX: I34.0 Nonrheumatic mitral (valve) insufficiency (principal); I71.23 Aneurysm of the descending thoracic aorta, without rupture; I51.7 Cardiomegaly; I27.20 Pulmonary hypertension, unspecified | CPT/HCPCS: 93306 ==

== ENCOUNTER 2025-06-05 15:19 | Outpatient (AMB) | payer OTHER, SELFPAY ==
--- NOTE | 2025-06-05 15:24 | MHC.OFFVISCO ---
Intake Intake Visit Reasons: Anticoagulation Allergies lisinopril (LISINOPRIL) Allergy (Severe, Verified 06/05/25 15:19) ACUTE KIDNEY INJURY oxycodone (Percocet) Allergy (Intermediate, Verified 06/05/25 15:19) agitation codeine (CODEINE) Allergy (Unknown, Verified 06/05/25 15:19) AGITATION morphine (MORPHINE) Allergy (Unknown, Verified 06/05/25 15:19) AGITATION, confusion From PERCOCET Allergy (Unknown, Uncoded 06/05/25 15:19) AGITATION Medication List - Last Reconciled 06/05/25 by Gosia Cano RN amlodipine 2.5 mg PO DAILY atorvastatin 80 mg PO QAM cholecalciferol (vitamin D3) 25 mcg PO DAILY compression socks, large As directed febuxostat (Uloric) 40 mg PO DAILY fluticasone propionate 50 mcg/actuation 1 spray intranasal DAILY 30 days furosemide (Lasix) 40 mg PO QAM 90 days gabapentin 200 mg (2 x 100 mg) PO BEDTIME 30 days meclizine 25 mg PO TID PRN 30 days metoprolol tartrate 50 mg See Protocol PO BID 90 days prednisone 10 mg PO ONCE PRN simethicone 180 mg PO QID 30 days sodium zirconium cyclosilicate (Lokelma) 10 grams orally Every Monday and ; warfarin 7.5 mg See Protocol PO MO warfarin 5 mg See Protocol PO SUTUWETHFRSA Nursing Note Pt to [facility] accompanied by son who speaks fluent Setswana INR: 2.8 in therapeutic range of 2-3 Medications and supplements reviewed No changes in health, diet, medications, or supplements, Denies any signs and symptoms of bleeding or bruising or clotting. Bleeding, bruising, clotting discussed Nutritional guidance given Dose: 5mg X 6 days and 7.5mg X 1 day (Mon) F/U INR: 4 weeks Patient and son verbalizes understanding of instructions with read back given Anti-Coag Initial Assessment Social Hx Patient Tobacco Use Status: Former Tobacco user Tobacco use type: Cigarette alcohol intake: former Alcohol intake frequency: does not drink Coding Level of Care Code Est Patient Level 1 Diagnoses Current use of anticoagulant therapy Z79.01 Results AMB INR Fingerstick AMB INR Fingerstick 2.8 Last Edit by Gosia Cano RN on 06/05/25 15:25 interface delay Assessment & Plan Assessment & Plan (1) Current use of anticoagulant therapy: Code(s): Z79.01 - technician terminal and repeater (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
[2025-06-05 15:26] LABS: Prothrombin Time Whole Bld POC 34.0 sec (11.1-13.5); ~PT, ~INR - Anti Coag Clinic 2.8 (0.9-1.1)
--- OUTSIDE RECORDS SUMMARY | 2025-06-05 15:59 | XMS_ITS | Encounter Summary ---
Author Organization [employer] Address [address] [place] [address] [address] [place] [address] Care Team Providers Care Consultative Sales Associate Name Role Phone Sherry Ward MD Primary Care Provider [phone] Robe Parker PharmD Unavailable [phone] Encounter Details Date Type Department Care Team (Late st Contact Info) Description 01/23/2023 Orders Only [facility] MED[facility]INE [address] [place] [phone] Nivia Serrato MD [address] [place], [place] [phone] Hyperkalemia (Primary Dx) Social History Tobacco Use [...] Hyperpotassemia documented in this encounter Care Teams Consultative Sales Associate Relationship Specialty Start Date End Date Sherry Ward MD [address] [place] [address] [phone] PCP - General Family Medicine 11/20/18 12/17/23 Robe Parker, PharmD [address] [place] [phone] Pharmacist Internal Medicine 06/15/23 documented as of this encounter
--- OUTSIDE RECORDS SUMMARY | 2025-06-05 15:59 | XMS_ITS | Patient Health Record ---
Author Organization [facility] Address [address] [place] [address] Care Team Providers Care Enterprise Security Architect Name Role Phone Joycelyn Brothers M.D. Primary Care Provider Jasson Adams Unavailable [phone] Allergies Allergen (clinical drug ingredient) Drug/Non Drug [...] Problem Status W/U Status Risk Notes Problem [id number] Encounter for screening for malignant neoplasm of colon (Z12.11) Active confirmed Problem 589330188 History of adenomatous polyp of colon (Z86.010) Active confirmed Problem 400669208 Abdominal bloating (R14.0) Active confirmed Problem 352389307346485 Preprocedural examination (Z01.818) Active confirmed Problem 386674127 Gallstones (K80.20) Active confirmed Problem 566200241 Borborygmus (R19.8) Active confirmed Plan Of Treatment Future Test Test Name Order Date UPPER GI ENDOSCOPY 08/23/2012 COLONOSCOPY 08/23/2012 COLONOSCOPY 12/26/2018 Insurance Providers Payer Name Payer Address Payer Phone Subscriber Number Group Number Insured Name Patient Relationship to Insured Coverage Start Date Coverage End Date [facility] [employer] [address] [address] [place] [address] [id number] SEMAJ PATTERSON Self - patient is the insured Medical (General) History Medical History History ICD Code Kidney disease-followed by Dr. Tae johansen HTN Denies [place],CVA,Lung disease Hyperlipidemia Rx'd for H.pylori in 06/2012 [...]
== END 2025-06-05 15:32 | disposition home or self-care (01) ==
LOC: HO.ACS 15:19
PROVIDERS: PCP Physician Assistant; Visit Provider Internal Medicine Medical Oncology
DX: Z79.01 Long term (current) use of anticoagulants (principal)

== ENCOUNTER → 2025-06-05 15:19 | Outpatient (BNVA) | payer OTHER, SELFPAY | PROVIDERS: PCP Physician Assistant; Visit Provider Internal Medicine Medical Oncology | DX: I48.0 Paroxysmal atrial fibrillation (principal); Z79.01 Long term (current) use of anticoagulants; Z51.81 Encounter for therapeutic drug level monitoring | CPT/HCPCS: 85610; 99211 ==

== ENCOUNTER 2025-06-10 13:09 | Outpatient (REF) | payer OTHER, SELFPAY ==
--- NOTE | ~2025-06-10 | CT_ITS ---
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 Severe coronary artery atherosclerotic vascular calcifications. Ascending thoracic aorta measures 4 cm in diameter. Descending thoracic aorta measures 4 cm in diameter. Aorta measures 3.5 cm in diameter at the diaphragmatic hiatus. These measurements are similar to prior exam. Limited evaluation without intravenous contrast. Marked calcified and noncalcified atherosclerotic vascular disease. Calcifications of the aortic annulus. Atherosclerotic vascular calcifications of the thoracic aorta. It is difficult to accurately measure the aortic annulus due to lack of contrast and cardiac motion. Aorta measures 3.5 cm in diameter the sinuses of Valsalva. Aorta measures 3 cm in diameter at the sinotubular junction. The visualized thyroid and mediastinum are unremarkable. Mild cardiomegaly. Trace bilateral pleural effusions which are new. Increased pulmonary interstitial thickening which may be due to edema in the correct clinical setting greatest in both lower lobes of the lungs. Mosaic attenuation in the lungs. Low lung volumes. Atelectasis within the lungs. There is a large gallstone. Small left kidney. Calcification in the left renal hilum which may be vascular or due to urinary calculus measuring 0.4 cm. Left renal cyst. 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 CTA of the abdomen could be obtained for further evaluation. Degenerative changes of the spine. Limited evaluation without intravenous contrast. IMPRESSION: 1. Ascending thoracic aorta measures 4 cm in diameter. Descending thoracic aorta measures 4 cm in diameter. Aorta measures 3.5 cm in diameter at the diaphragmatic hiatus. These measurements are similar to prior exam. Limited evaluation without intravenous contrast. Marked calcified and noncalcified atherosclerotic vascular disease. 2. Severe coronary artery atherosclerotic vascular calcifications. 3. 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 CTA of the abdomen could be obtained for further evaluation. 4. Trace bilateral pleural effusions which are new. 5. Increased pulmonary interstitial thickening which may be due to edema in the correct clinical setting greatest in both lower lobes of the lungs. This document has been electronically signed by: Camilo Roberson DO on 06/11/2025 12:13:33
--- OUTSIDE RECORDS SUMMARY | 2025-06-10 14:12 | XMS_ITS | Clinical Summary ---
Author Organization [facility] Address [address] [place] [address] Phone Care Team Providers Care Nursing Unit Manager Name Role Phone Joycelyn Brothers DO [...] - medication: warfarin - monitored by [facility] - [...] 04/02/2021 Overview (01/26/2024): Last Assessment & Plan: -Community Sports Coordinator: Dr. Roland, last seen in 12/27/21 -Baseline SCr 2.4-2.8; eGFR 22-26, CrCl 28.5 -Most recent lab: 08/05/22 K 5.2, BUN 46, SCr 2.48; eGFR 26 -Avoid nephrotoxic drugs/substances and behaviors, including NSAIDs use. -Renal dose medications. Tinea pedis 04/30/2018 Ischemic heart disease 04/30/2018 Overview (01/26/2024): Last Assessment & Plan: -Alarm Mechanism Adjuster, Dr. Cain, seen on 11/10/22 -TIA in January 2018. Dx Afib. Started on Coumadin. -03/14/18 BRITTANY to distal RCA. Completed uninterrupted Plavix and Coumadin therapy for 1 year. Plan was to swithc Plavix to ASA. Pt is not on ASA or Plavix at this time because his CAD is stable per identification printing machine setter. - Last echo in 12/28/21: Normal LV function, EF 55-60%. slight decrease from last echo. mild GERD reguigitation -Continue current medications History of placement of stent for coronary arter y disease 04/30/2018 Chronic atrial fibrillation 02/09/2018 Overview (01/26/2024): Last Assessment & Plan: A-fib today, rate controlled. pt is usually asymptomatic whether he is bradycardia and tachycardia -his identification printing machine setter recommends rate control rather than rhythm control - Continue rate control with metoprolol tartrate 100 mg bid - Continue digoxin 125 mcg daily - Continue warfarin, which is monitored by [facility] Antico[facility] clinic -- [...] Years) Discontinued 03/21/2016, 06/18/2015, 04/14/[address] [place] [id number] [employer] ([id number]) [address] [place] [phone] [facility] [employer] ([id number]) Care Teams Nursing Unit Manager Relationship Specialty Start Date End Date Joycelyn Brothers DO PCP - General 11/30/20
--- OUTSIDE RECORDS SUMMARY | 2025-06-10 14:13 | XMS_ITS | Encounter Summary ---
Author Organization [employer] Address [address] [place] [address] 7[address] [place] [address] Care Team Providers Care Instrumentation Tech Name Role Phone Sherry Ward MD Primary Care Provider [phone] Robe Parker PharmD Unavailable [phone] Encounter Details Date Type Department Care Team (Late st Contact Info) Description 01/23/2023 Orders Only [facility] MEDICINE [address] [place] [phone] Nivia Serrato MD [address] [place], [place] [phone] Hyperkalemia (Primary Dx) Social History Tobacco Use [...] Hyperpotassemia documented in this encounter Care Teams Instrumentation Tech Relationship Specialty Start Date End Date Sherry Ward MD [address] [place] [address] [phone] PCP - General Family Medicine 11/20/18 12/17/23 Robe Parker, PharmD [address] [place] [phone] Pharmacist Internal Medicine 06/15/23 documented as of this encounter
== END 2025-06-10 13:10 | disposition home or self-care (01) ==
LOC: HO.CT 13:09
PROVIDERS: PCP Physician Assistant; Visit Provider Surgery Vascular Surgery
DX: I71.23 Aneurysm of the descending thoracic aorta, without rupture (principal)
CPT/HCPCS: 71250

== ENCOUNTER → 2025-06-10 13:11 | Outpatient (BNV) | payer OTHER, SELFPAY | PROVIDERS: PCP Physician Assistant; Visit Provider Family Medicine | DX: I25.10 Atherosclerotic heart disease of native coronary artery without angina pectoris (principal); I71.43 Infrarenal abdominal aortic aneurysm, without rupture; R91.8 Other nonspecific abnormal finding of lung field | CPT/HCPCS: 71250 ==

== ENCOUNTER 2025-06-25 14:26 | Outpatient (AMB) | payer OTHER, SELFPAY ==
[2025-06-25 14:35] VITALS: BP 134/82; PULSE 54; BMI 29.7
--- NOTE | 2025-06-25 14:35 | A.OFFVIS_ITS ---
Vital Signs 06/25/25 14:35 Height 5 ft 6 in Weight 183 lb 13.848 oz BMI 29.7 BP 134/82 Blood Pressure Location Lt brachial Position Sitting Pulse 54 Pulse Source Monitor Intake Visit Reasons: Follow up after Echo Intake Note: f/up-echo Flux Tube Attendant Required: No Flux Tube Attendant Services: Flux Tube Attendant Offered & Declined Flux Tube Attendant Name: daughter Accompanied by: Daughter Allergies lisinopril (LISINOPRIL) Allergy (Severe, Verified 06/05/25 15:19) ACUTE KIDNEY INJURY oxycodone (Percocet) Allergy (Intermediate, Verified 06/05/25 15:19) agitation codeine (CODEINE) Allergy (Unknown, Verified 06/05/25 15:19) AGITATION morphine (MORPHINE) Allergy (Unknown, Verified 06/05/25 15:19) AGITATION, confusion From PERCOCET Allergy (Unknown, Uncoded 06/05/25 15:19) AGITATION Medication List - Last Reconciled 06/25/25 by Abrahan Patel NP amlodipine 2.5 mg PO DAILY atorvastatin 80 mg PO QAM cholecalciferol (vitamin D3) 25 mcg PO DAILY compression socks, large As directed febuxostat (Uloric) 40 mg PO DAILY fluticasone propionate 50 mcg/actuation 1 spray intranasal DAILY 30 days furosemide (Lasix) 40 mg PO QAM 90 days gabapentin 200 mg (2 x 100 mg) PO BEDTIME 30 days meclizine 25 mg PO TID PRN 30 days metoprolol tartrate 50 mg See Protocol PO BID 90 days prednisone 10 mg PO ONCE PRN simethicone 180 mg PO QID 30 days sodium zirconium cyclosilicate (Lokelma) 10 grams orally Every Monday and ; warfarin 7.5 mg See Protocol PO MO warfarin 5 mg See Protocol PO SUTUWETHFRSA HPI Comments Details: This is a 75-year-old male patient coming in for a follow-up visit, accompanied by his daughter who security solutions engineer throughout the visit. Patient with a history of AFib on Coumadin, hyperlipidemia, chronic kidney disease, hypertension, and coronary artery disease with prior PCI in 2018. Patient recently had a chest CT and is here to review the results with this. Patient also underwent an echo study recently. Today, patient reports feeling well overall and denies any exertional symptoms of chest pain, shortness of breath, palpitations, dizziness, orthopnea, PND, leg edema, presyncope, or syncope. Patient is reporting compliance with all his medications. [facility] Medical History Allergies Sinus bradycardia Pre-op examination Annual physical exam History of TIA (transient ischemic attack) Gout Personal history of nicotine dependence Chronic kidney disease, stage 3 unspecified Benign prostatic hyperplasia with lower urinary tract symptoms HTN (hypertension) CAD (coronary artery disease) Paroxysmal atrial fibrillation Surgical History Stented coronary artery Hx of colonoscopy Hx of cardiac cath Hx of cystoscopy History of esophagogastroduodenoscopy (EGD) Hx of cataract extraction Family History Mother CAD (coronary artery disease) Diabetes HTN (hypertension) Father CAD (coronary artery disease) Diabetes HTN (hypertension) Social History Household Members: None Housing: Apartment Do you presently have visiting nurse or other home services: No Alcohol intake: former Patient Tobacco Use Status: Former Tobacco user Tobacco use type: Cigarette Years Smoked: 40 +/- e-Cigarette/Vaping Use: Never Used Second Hand Smoke Exposure: No service: No Current occupational status: retired and disabled Cognitive needs: No Hearing needs: No Vision needs: Yes Review of Systems Const Denies chills, Denies fatigue, Denies fever(s), Denies frequent falls, Denies weakness, Denies weight gain and Denies weight loss ENT Denies dizziness Card Denies chest pain, Denies leg edema, Denies lightheadedness, Denies palpitations, Denies dyspnea and Denies dyspnea on exertion Resp Denies cough, Denies dyspnea and Denies dyspnea on exertion GI Denies hematochezia Musc Denies abnormal gait, Denies muscle weakness, Denies numbness, Denies radiating pain into limb and Denies tingling Neuro Denies abnormal gait, Denies dizziness, Denies frequent falls, Denies numbness, Denies tingling and Denies weakness Endo Denies fatigue and Denies palpitations Physical Exam Vital Signs: Last Vital Signs Pulse 54 06/25/25 14:35 BP 134/82 06/25/25 14:35 BMI result Body Mass Index 29.7 Const General: cooperative, healthy appearing, comfortable and no acute distress Orientation/consciousness: patient oriented x3 HEENT Head: Yes normal to inspection Neck Neck: Yes normal visual inspection, Yes trachea midline and Yes supple Chest Chest palpation & inspection: normal inspection of the chest Resp Effort & Inspection: normal respiratory effort Auscultation: clear to auscultation bilaterally, no crackles, no rales, no rhonchi and no wheezes Cardio Jugular venous distension: no JVD Palpation: normal PMI Rate: regular rate Rhythm: regular rhythm Heart sounds: S1 normal heart sound present, S2 normal heart sound present, no click, no gallops, no murmurs and no rubs Peripheral pulses: Peripheral pulses 2+ throughout GI Inspection: Yes normal to inspection Palpation (GI): Soft to palpation Auscultation: normal bowel sounds Skin General skin exam: no rashes or lesions noted Neuro General: patient oriented x3 Extrem General: Yes normal to inspection, No no pedal edema and No calf tenderness Psych Appearance: grossly normal Mental Status: mental status grossly normal Speech and movement: Normal speech and movement present Office Procedures EKG Details: EKG today showed sinus bradycardia, 54 beats per minute, nonspecific ST-T wave, [place], [place] [id number], Complete Assessment & Plan Assessment & Plan (1) CAD (coronary artery disease): Code(s): I25.10 - Atherosclerotic heart disease of [place] coronary artery without angina pectoris Category: Medical Qualifiers: Associated angina: without angina Coronary Disease-Associated Artery/Lesion type: [place] artery [place] vs. transplanted heart: [place] heart Qualified Code(s): I25.10 - Atherosclerotic heart disease of [place] coronary artery without angina pectoris Plan: 05/30/2025-patient underwent an echo study that showed a mildly reduced LV systolic function with an ejection fraction between 45-50%, mildly decreased RV systolic function, mild pulmonary hypertension. 06/11/2025-patient underwent a chest CTA that showed severe coronary artery atherosclerosis. History of prior PCI in 2018. Clinically without any anginal symptoms. However, given his reduced EF with severe coronary disease on chest CT, we will proceed with a coronary CTA to look for extent of coronary artery disease and ischemic changes. Continue warfarin. Continue high-dose statin therapy with an LDL goal less than 70%. No recent lipid profile, we will repeat this. (2) Atrial fibrillation: Code(s): I48.91 - Unspecified atrial fibrillation Category: Medical Qualifiers: Atrial fibrillation type: permanent Qualified Code(s): I48.21 - Permanent atrial fibrillation Plan: History of chronic AFib who has failed rhythm control but is currently in sinus rhythm. Continue with warfarin for full anticoagulation, followed by Coumadin clinic. Continue with metoprolol for rate control approach. (3) Current use of anticoagulant therapy: Code(s): Z79.01 - [facility] (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 Plan: As above. (4) Aneurysm of descending thoracic aorta: Code(s): I71.2 - Thoracic aortic aneurysm, without rupture Category: Medical Qualifiers: Presence of rupture: without rupture Qualified Code(s): I71.23 - Aneurysm of the descending thoracic aorta, without rupture Plan: Followed by Dr. Hooks. Recently had a chest CT that showed severe coronary atherosclerosis. As above. (5) High cholesterol: Code(s): E78.00 - Pure hypercholesterolemia, unspecified Category: Medical Plan: As above. Advised heart healthy diet, regular exercise, med compliance, and aggressive management of vascular risk factors. Follow-up after coronary CTA. In the interim, patient will call the office with any concerns or change in symptoms. Advised to seek ER care in case of exertional chest pain not resolved with rest. This note was generated using voice recognition software. While every effort has been made to ensure accuracy and proper meter/relay technician, there may be occasional errors that could affect the content or meaning of the described symptoms. Orders: Orders Basic Metabolic Panel Today I25.10 - Atherosclerotic heart disease of [place] coronary artery without angina pectoris CT Cardiac Coronary Angio Today I25.10 - Atherosclerotic heart disease of [place] coronary artery without angina pectoris Lipid Panel Today I25.10 - Atherosclerotic heart disease of [place] coronary artery without angina pectoris AMB EKG-In Office Today I48.21 - Permanent atrial fibrillation Coding Level of Care Code Est Pt Level 4 (62364) Complex EM visit Add On G2211 Diagnoses Coronary artery disease involving [place] coronary artery of [place] heart without angina pectoris I25.10 Associated angina: without angina Coronary Disease-Associated Artery/Lesion type: [place] artery [place] vs. transplanted heart: [place] heart Permanent atrial fibrillation I48.21 Atrial fibrillation type: permanent Current use of anticoagulant therapy Z79.01 Aneurysm of descending thoracic aorta without rupture I71.23 Presence of rupture: without rupture High cholesterol E78.00 CPT Codes EKG - CPT: 64227-[id number], Complete ([id number]) Time Spent (min) 34 Comment Time spent in reviewing the chart, test results, assessment, counseling and documentation.
--- OUTSIDE RECORDS SUMMARY | 2025-06-25 14:54 | XMS_ITS | Clinical Summary ---
Author Organization [facility] Address [address] [place] [address] Phone Care Team Providers Care Health Information Administrator Name Role Phone Joycelyn Brothers DO [...] adenomatous polyp of colon 01/26/2024 Tinnitus 03/21/2023 [facility] current use of anticoagulant Overview (01/26/2024): Last Assessment & Plan: - indication: Atrial fibrilation - medication: warfarin - monitored by [facility] - most recent INR 1.6 [...] 04/02/2021 Overview (01/26/2024): Last Assessment & Plan: -Highwall Drill Operator: Dr. Roland, last seen in 12/27/21 -Baseline SCr 2.4-2.8; eGFR 22-26, CrCl 28.5 -Most recent lab: 08/05/22 K 5.2, BUN 46, SCr 2.48; eGFR 26 -Avoid nephrotoxic drugs/substances and behaviors, including NSAIDs use. -Renal dose medications. Tinea pedis 04/30/2018 Ischemic heart disease 04/30/2018 Overview (01/26/2024): Last Assessment & Plan: -Development Advisor, Dr. Cain, seen on 11/10/22 -TIA in January 2018. Dx Afib. Started on Coumadin. -03/14/18 BRITTANY to distal RCA. Completed uninterrupted Plavix and Coumadin therapy for 1 year. Plan was to swithc Plavix to ASA. Pt is not on ASA or Plavix at this time because his CAD is stable per cardroom supervisor. - Last echo in 12/28/21: Normal LV function, EF 55-60%. slight decrease from last echo. mild GERD reguigitation -Continue current medications History of placement of stent for coronary arter y disease 04/30/2018 Chronic atrial fibrillation 02/09/2018 Overview (01/26/2024): Last Assessment & Plan: A-fib today, rate controlled. pt is usually asymptomatic whether he is bradycardia and tachycardia -his cardroom supervisor recommends rate control rather than rhythm control - Continue rate control with metoprolol tartrate 100 mg bid - Continue digoxin 125 mcg daily - Continue warfarin, which is monitored by [facility] -- Treatment Hx: --Previously on [...] Years) Discontinued 03/21/2016, 06/18/2015, 04/14/[address] [place] [id number] [employer] ([id number]) [address] [place] [id number] [facility] [employer] ([id number]) Care Teams Health Information Administrator Relationship Specialty Start Date End Date Joycelyn Brothers DO PCP - General 11/30/20
--- OUTSIDE RECORDS SUMMARY | 2025-06-25 14:54 | XMS_ITS | Patient Health Record ---
Author Organization [facility] Address [address] [place] [address] Care Team Providers Care Sales Representative Name Role Phone Joycelyn Brothers M.D. Primary Care Provider Jasson Adams Unavailable [phone] Allergies Allergen (clinical drug ingredient) Drug/Non Drug [...] Problem Status W/U Status Risk Notes Problem [id number] Encounter for screening for malignant neoplasm of colon (Z12.11) Active confirmed Problem 542518715 History of adenomatous polyp of colon (Z86.010) Active confirmed Problem 201881500 Abdominal bloating (R14.0) Active confirmed Problem [id number] Preprocedural examination (Z01.818) Active confirmed Problem 917194800 Gallstones (K80.20) Active confirmed Problem 300675650 Borborygmus (R19.8) Active confirmed Plan Of Treatment Future Test Test Name Order Date UPPER GI ENDOSCOPY 08/23/2012 COLONOSCOPY 08/23/2012 COLONOSCOPY 12/26/2018 Insurance Providers Payer Name Payer Address Payer Phone Subscriber Number Group Number Insured Name Patient Relationship to Insured Coverage Start Date Coverage End Date [facility] [employer] [address] [address] [place] [address] [phone] [id number] SEMAJ PATTERSON Self - patient is the insured Medical (General) History Medical History History ICD Code Kidney disease-followed by Dr. Tae johansen HTN Denies [place],CVA,Lung disease Hyperlipidemia Rx'd for H.pylori in 06/2012 [...]
--- OUTSIDE RECORDS SUMMARY | 2025-06-25 14:54 | XMS_ITS | Encounter Summary ---
Author Organization [employer] Address [address] [place] [address] [address] [place] [address] Care Team Providers Care Veneer Stock Grader Name Role Phone Sherry Ward MD Primary Care Provider [phone] Robe Parker PharmD Unavailable [phone] Encounter Details Date Type Department Care Team (Late st Contact Info) Description 01/23/2023 Orders Only [facility] [address] [place] [id number] Nivia Serrato MD [address] [place], [place] [phone] Hyperkalemia (Primary Dx) Social History Tobacco Use [...] Hyperpotassemia documented in this encounter Care Teams Veneer Stock Grader Relationship Specialty Start Date End Date Sherry Ward MD [address] [place] [address] [phone] PCP - General Family Medicine 11/20/18 12/17/23 Robe Parker, PharmD [address] [place] [id number] Pharmacist Internal Medicine 06/15/23 documented as of this encounter
== END 2025-06-25 15:04 | disposition home or self-care (01) ==
LOC: HO.HCS 14:27
PROVIDERS: PCP Physician Assistant
DX: I25.10 Atherosclerotic heart disease of native coronary artery without angina pectoris (principal); I48.21 Permanent atrial fibrillation; Z79.01 Long term (current) use of anticoagulants; I71.23 Aneurysm of the descending thoracic aorta, without rupture; E78.00 Pure hypercholesterolemia, unspecified
CPT/HCPCS: 93010; 99214; G2211

== ENCOUNTER → 2025-06-25 14:26 | Outpatient (BNVA) | payer OTHER, SELFPAY | PROVIDERS: PCP Physician Assistant | DX: I25.10 Atherosclerotic heart disease of native coronary artery without angina pectoris (principal); I48.21 Permanent atrial fibrillation; I71.23 Aneurysm of the descending thoracic aorta, without rupture; E78.00 Pure hypercholesterolemia, unspecified; Z79.01 Long term (current) use of anticoagulants; R00.1 Bradycardia, unspecified | CPT/HCPCS: 93005; 99212 ==

== ENCOUNTER 2025-07-03 11:13 | Outpatient (AMB) | payer OTHER, SELFPAY ==
[2025-07-03 11:21] LABS: Prothrombin Time Whole Bld POC 28.4 sec (11.1-13.5); ~PT, ~INR - Anti Coag Clinic 2.4 (0.9-1.1)
--- NOTE | 2025-07-03 11:25 | MHC.OFFVISCO ---
Intake Intake Visit Reasons: Anticoagulation Allergies lisinopril (LISINOPRIL) Allergy (Severe, Verified 07/03/25 11:14) ACUTE KIDNEY INJURY oxycodone (Percocet) Allergy (Intermediate, Verified 07/03/25 11:14) agitation codeine (CODEINE) Allergy (Unknown, Verified 07/03/25 11:14) AGITATION morphine (MORPHINE) Allergy (Unknown, Verified 07/03/25 11:14) AGITATION, confusion From PERCOCET Allergy (Unknown, Uncoded 07/03/25 11:14) AGITATION Medication List - Last Reconciled 07/03/25 by Anne oGuld RN amlodipine 2.5 mg PO DAILY atorvastatin 80 mg PO QAM cholecalciferol (vitamin D3) 25 mcg PO DAILY compression socks, large As directed febuxostat (Uloric) 40 mg PO DAILY fluticasone propionate 50 mcg/actuation 1 spray intranasal DAILY 30 days furosemide (Lasix) 40 mg PO QAM 90 days gabapentin 200 mg (2 x 100 mg) PO BEDTIME 30 days meclizine 25 mg PO TID PRN 30 days metoprolol tartrate 50 mg See Protocol PO BID 90 days prednisone 10 mg PO ONCE PRN simethicone 180 mg PO QID 30 days sodium zirconium cyclosilicate (Lokelma) 10 grams orally Every Monday and ; warfarin 7.5 mg See Protocol PO MO warfarin 5 mg See Protocol PO SUTUWETHFRSA Nursing Note INR: 2.4 in therapeutic range Medications and supplements reviewed No changes in health, diet, medications, or supplements, Denies any signs and symptoms of bleeding or bruising or clotting. Bleeding, bruising, clotting discussed Nutritional guidance given Dose: Keep same dose 7.5mg x 1 day/ 5mg x 6 days F/U INR: 1 month Patient verbalizes understanding of instructions given Anti-Coag Initial Assessment Social Hx Patient Tobacco Use Status: Former Tobacco user Tobacco use type: Cigarette alcohol intake: former Alcohol intake frequency: does not drink Coding Level of Care Code Est Patient Level 1 Diagnoses Current use of anticoagulant therapy Z79.01 Assessment & Plan Assessment & Plan (1) Current use of anticoagulant therapy: Code(s): Z79.01 - computer terminal operator (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
--- OUTSIDE RECORDS SUMMARY | 2025-07-03 12:19 | XMS_ITS | Clinical Summary ---
Author Organization [facility] Address [address] [place] [address] Phone Care Team Providers Care Report Writer Name Role Phone Joycelyn Brothers DO Primary [...] fibrilation - medication: warfarin - monitored by [facility] [place] [place] [facility] [facility] - most recent INR 1.6 [...] 04/02/2021 Overview (01/26/2024): Last Assessment & Plan: -Diabetes Manager: Dr. Roland, last seen in 12/27/21 -Baseline SCr 2.4-2.8; eGFR 22-26, CrCl 28.5 -Most recent lab: 08/05/22 K 5.2, BUN 46, SCr 2.48; eGFR 26 -Avoid nephrotoxic drugs/substances and behaviors, including NSAIDs use. -Renal dose medications. Tinea pedis 04/30/2018 Ischemic heart disease 04/30/2018 Overview (01/26/2024): Last Assessment & Plan: -Risk Intern, Dr. Cain, seen on 11/10/22 -TIA in January 2018. Dx Afib. Started on Coumadin. -03/14/18 BRITTANY to distal RCA. Completed uninterrupted Plavix and Coumadin therapy for 1 year. Plan was to swithc Plavix to ASA. Pt is not on ASA or Plavix at this time because his CAD is stable per poultry hatchery man. - Last echo in 12/28/21: Normal LV function, EF 55-60%. slight decrease from last echo. mild GERD reguigitation -Continue current medications History of placement of stent for coronary arter y disease 04/30/2018 Chronic atrial fibrillation 02/09/2018 Overview (01/26/2024): Last Assessment & Plan: A-fib today, rate controlled. pt is usually asymptomatic whether he is bradycardia and tachycardia -his poultry hatchery man recommends rate control rather than rhythm control - Continue rate control with metoprolol tartrate 100 mg bid - Continue digoxin 125 mcg daily - Continue warfarin, which is monitored by [facility] [place] [place] Anticoagulation clinic -- Treatment Hx: --Previously on [...] Years) Discontinued 03/21/2016, 06/18/2015, 04/14/[address] [place] [id number] [employer] ([id number]) [address] [place] [id number] [facility] [employer] ([id number]) Care Teams Report Writer Relationship Specialty Start Date End Date Joycelyn Brothers DO PCP - General 11/30/20
--- OUTSIDE RECORDS SUMMARY | 2025-07-03 12:19 | XMS_ITS | Patient Health Record ---
Author Organization [facility] Address [address] [place] [address] Care Team Providers Care Slitter Scorer Name Role Phone Joycelyn Brothers M.D. Primary Care Provider Jasson Adams Unavailable [phone] Allergies Allergen (clinical drug ingredient) Drug/Non Drug [...] Problem Status W/U Status Risk Notes Problem 429073585 Encounter for screening for malignant neoplasm of colon (Z12.11) Active confirmed Problem 654304122 History of adenomatous polyp of colon (Z86.010) Active confirmed Problem 699237765 Abdominal bloating (R14.0) Active confirmed Problem 453249995115883 Preprocedural examination (Z01.818) Active confirmed Problem 629372623 Gallstones (K80.20) Active confirmed Problem 669235667 Borborygmus (R19.8) Active confirmed Plan Of Treatment Future Test Test Name Order Date UPPER GI ENDOSCOPY 08/23/2012 COLONOSCOPY 08/23/2012 COLONOSCOPY 12/26/2018 Insurance Providers Payer Name Payer Address Payer Phone Subscriber Number Group Number Insured Name Patient Relationship to Insured Coverage Start Date Coverage End Date [facility] [employer] [address] [address] [place] [address] [id number] SEMAJ PATTERSON Self - patient is the [...]
== END 2025-07-03 11:27 | disposition home or self-care (01) ==
LOC: HO.ACS 11:13
PROVIDERS: PCP Physician Assistant; Visit Provider Internal Medicine Medical Oncology
DX: Z79.01 Long term (current) use of anticoagulants (principal)

== ENCOUNTER → 2025-07-03 11:13 | Outpatient (BNVA) | payer OTHER, SELFPAY | PROVIDERS: PCP Physician Assistant; Visit Provider Internal Medicine Medical Oncology | DX: Z51.81 Encounter for therapeutic drug level monitoring (principal); Z79.01 Long term (current) use of anticoagulants | CPT/HCPCS: 85610; 99211 ==

== ENCOUNTER 2025-07-09 15:11 | Outpatient (AMB) | payer OTHER, SELFPAY ==
[2025-07-09 15:19] VITALS: BP 136/90; PULSE 63; RESP 16; TEMP 36.3; O2SAT 95; BMI 29.2
--- NOTE | 2025-07-09 15:19 | A.OFFPC_ITS ---
Vital Signs 07/09/25 15:19 Height 5 ft 6 in Weight 181 lb BMI 29.2 BP 136/90 H Blood Pressure Location Lt brachial Position Sitting Respiration 16 Pulse 63 Pulse Source Pulse Oximeter Temp 97.3 F Temp Source Temporal Artery Scan Pulse Oximetry (%) 95 Oxygen Delivery Method Room Air Intake Visit Reasons: f/u HTN/ CKD stage 4 Accompanied by: Son Allergies lisinopril (LISINOPRIL) Allergy (Severe, Verified 07/09/25 15:28) ACUTE KIDNEY INJURY oxycodone (Percocet) Allergy (Intermediate, Verified 07/09/25 15:28) agitation codeine (CODEINE) Allergy (Unknown, Verified 07/09/25 15:28) AGITATION morphine (MORPHINE) Allergy (Unknown, Verified 07/09/25 15:28) AGITATION, confusion From PERCOCET Allergy (Unknown, Uncoded 07/09/25 15:28) AGITATION Medication List - Last Reconciled 07/09/25 by Preet An PA-C amlodipine 2.5 mg PO DAILY atorvastatin 80 mg PO QAM cholecalciferol (vitamin D3) 25 mcg PO DAILY compression socks, large As directed febuxostat (Uloric) 40 mg PO DAILY fluticasone propionate 50 mcg/actuation 1 spray intranasal DAILY 30 days furosemide 40 mg PO QAM gabapentin 200 mg (2 x 100 mg) PO BEDTIME 30 days meclizine 25 mg PO TID PRN 30 days metoprolol tartrate 50 mg See Protocol PO BID 90 days prednisone 10 mg PO ONCE PRN sodium zirconium cyclosilicate (Lokelma) 10 grams orally Every Monday and ; warfarin 7.5 mg See Protocol PO MO warfarin 5 mg See Protocol PO SUTUWETHFRSA Tobacco use date assessed: 07/09/25 Fall risk assessment: No Falls in past year Last assessed Fall Risk: 07/09/25 Dental Screening Dental Screen Date: 07/09/25 Did you have a dental visit in the last 12 months?: No Did you have a dental problem in the last 6 months where you did not have access to dental care?: No Was dental information given to patient?: Patient declined HPI f/u HTN/ CKD stage 4 HPI Details Patient is a 75 year male here today for follow-up visit Patient has a past medical history significant for AFib (followed by Car diology), gout, thoracic aortic aneurysm (followed by vascular) hypertension, CKD stage 5(followed by Nephrology), coronary artery disease. Concern-- > he patient experiences insomnia, which may be exacerbated by daytime napping. A trial of sleep medication has been proposed to improve sleep quality. Additionally, the patient reports frequent headaches, which are suspected to be related to elevated blood pressure. The headaches are described as tension-type, with a severity of 7 to 8 out of 10. .. AFib: Continues on warfarin for anticoagulation without any overt signs of bleeding. Also followed by [facility]. .. Thoracic aneurysm: Continues to follow vascular and recently had CT chest showing Ascending thoracic aorta measures 4 cm in diameter. Descending thoracic aorta measures 4 cm in diameter. Aorta measures 3.5 cm in diameter at the diaphragmatic hiatus .. Gallstone: Gallstones were incidentally found during imaging studies. The patient reports experiencing right upper quadrant pain and excessive gas, which may be related to the gallstones. Dietary modifications have been suggested to manage symptoms, and surgical consultation for gallbladder removal has been discussed as a potential option. .. Hypertension--. Hypertension has been a concern, with recent blood pressure readings at 136/90 mmHg. The patient is currently on amlodipine 2.5 mg, and an increase to 5 mg has been considered to better control blood pressure and potentially alleviate associated headaches. .. 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 He continues with CKD stage 5. He does not have any uremic symptoms. He is followed by Nephrology closely. Though has been considerations to start dialysis treatment Has hyperkalemia and does do Lokelma twice a week Laboratory Tests 09/12/23 06/05/24 06/11/24 10:04 11:51 15:25 WBC 12.7 H RBC 5.73 Hgb Hct Potassium BUN Creatinine 2.94 H POC Creatinine 2.3 H 11/05/24 12/23/24 02/05/25 13:28 14:50 12:29 WBC RBC Hgb 13.2 L 13.2 L Hct 40.7 L Potassium 5.2 H BUN 79 H Creatinine 4.71 H* 4.43 H* 4.42 H* POC Creatinine 04/22/25 14:15 WBC RBC Hgb Hct Potassium BUN Creatinine 4.43 H* POC Creatinine [facility] Medical History (Updated 07/09/25 @ 15:59 by Preet An PA-C) HTN (hypertension) Allergies Sinus bradycardia Pre-op examination Annual physical exam History of TIA (transient ischemic attack) Gout Personal history of nicotine dependence Chronic kidney disease, stage 3 unspecified Benign prostatic hyperplasia with lower urinary tract symptoms CAD (coronary artery disease) Paroxysmal atrial fibrillation Surgical History Stented coronary artery Hx of colonoscopy Hx of cardiac cath Hx of cystoscopy History of esophagogastroduodenoscopy (EGD) Hx of cataract extraction Family History Mother CAD (coronary artery disease) Diabetes HTN (hypertension) Father CAD (coronary artery disease) Diabetes HTN (hypertension) Social History Household Members: None Housing: Apartment Do you presently have visiting nurse or other home services: No Alcohol intake: former Patient Tobacco Use Status: Former Tobacco user Tobacco use type: Cigarette Years Smoked: 40 +/- e-Cigarette/Vaping Use: Never Used Second Hand Smoke Exposure: No service: No Current occupational status: retired and disabled Cognitive needs: No Hearing needs: No Vision needs: Yes Questionnaire PHQ-9 Over the last 2 weeks, how often have you been bothered by any of the following problems? 1. Little interest or pleasure in doing things: not at all 2. Feeling down, depressed, or hopeless: not at all 3. Trouble falling or staying asleep, or sleeping too much: not at all 4. Feeling tired or having little energy: not at all 5. Poor appetite or overeating: not at all 6. Feeling bad about yourself - or that you are a failure or have let yourself or your family down: not at all 7. Trouble concentrating on things, such as reading the newspaper or watching television: not at all 8. Moving or speaking so slowly that other people could have noticed. Or the opposite - being so fidgety or restless that you have been moving around a lot more than usual: not at all 9. Thoughts that you would be better off or of hurting yourself in some way: not at all Total score: 0 Depression Screening Interpretation: Negative Depression Screening Done: Yes Source: Developed by Drs. Jasson Ramos, Alanna Allen, Wai Tanner and colleagues, with an educational marcell from [employer]. Thrive Questionnaire Date Thrive assessed: 03/25/25 I am a: Patient What is your living situation today?: I have a steady place to live Within the past 12 months, did the food you bought not last and you didn't have the money to get more?: I choose not to answer this question Within the past 12 months, did you worry whether your food would run out before you got money to buy more?: I choose not to answer this question Do you have trouble paying for medicines?: No Do you have trouble getting transportation to medical appointments?: I choose not to answer this question Do you have trouble paying your heating and electricity bill?: I choose not to answer this question Do you have trouble taking care of your child, family member or friend?: I choose not to answer this question Do you have trouble with day-to-day activities such as bathing, preparing meals, shopping, managing finances, etc.?: I choose not to answer this question Are you currently unemployed and looking for a job?: I choose not to answer this question Are you interested in more education?: I choose not to answer this question Please select the resources that you would like help with: None Currently or been in a relationship where the following occur: I choose not to answer THRIVE Score: 0 AUDIT C Alcohol Use Questionnaire (AUDIT-C) 1. How often do you have a drink containing alcohol?: Never 3. How often do you have six or more drinks on one occasion?: Never Total Score: 0 Score Reviewed/Action Taken: No FAUSTINA-7 AMB Questionnaire FAUSTINA-7 Date FAUSTINA - 7 assessed: 03/27/25 Feeling nervous, anxious, or on edge: 0 = Not at all Not being able to stop or control worryin = Not at all Worrying too much about different things: 0 = Not at all Trouble relaxin = Not at all Being so restless that it is hard to sit still: 0 = Not at all Becoming easily annoyed or irritable: 0 = Not at all Feeling afraid as if something awful might happen: 0 = Not at all Total FAUSTINA-7 score (0-4 normal; 5-9 mild; 10-14 moderate; 15-21 severe): 0 Source: Developed by Drs. Jasson Ramos, Alanna Allen, Wai Tanner and colleagues, with an educational marcell from [employer]. Review of Systems Const Denies headache(s) Eyes Denies loss of vision ENT Denies vertigo, Denies dizziness, Denies headache(s) and Denies sore throat Card Denies chest pain, Denies leg edema and Denies lightheadedness Resp Denies cough, Denies hemoptysis and Denies wheezing GI Denies abdominal pain, Denies melena, Denies constipation, Denies diarrhea and Denies vomiting Denies dysuria, Denies urinary frequency and Denies urinary urgency Musc Denies arthralgias, Denies joint swelling, Denies numbness and Denies tingling Neuro Denies Abnormal speech present, Denies behavioral changes, Denies vertigo, Denies dizziness, Denies headache(s), Denies loss of vision, Denies memory loss, Denies numbness and Denies tingling Psych Denies anxiety, Denies behavioral changes, Denies depression, Denies memory loss and Denies panic attacks Adonis/Lymph Denies easy bleeding and Denies easy bruising Aller/Immun Denies wheezing Physical exam (Primary Care) Vital Signs: Last Vital Signs Temp 97.3 F 07/09/25 15:19 Pulse 63 07/09/25 15:19 Resp 16 07/09/25 15:19 BP 136/90 H 07/09/25 15:19 Pulse Ox 95 07/09/25 15:19 Oxygen Delivery Method Room Air 07/09/25 15:19 BMI result Body Mass Index 29.2 Tobacco/Smoking Status: Tobacco use Status Tobacco use date assessed 07/09/25 07/09/25 15:23 Patient Tobacco Use Status Former Tobacco user 07/09/25 15:23 Tobacco use type Cigarette 07/09/25 15:23 e-Cigarette/Vaping Use Never Used 07/09/25 15:23 PHQ-9: PHQ-9 Score PHQ-9: Total score 0 07/09/25 15:23 Depression Screening Interpretation: Negative Thrive Assessment: Date of Thrive Assessment Date Thrive assessed 03/25/25 07/09/25 15:23 Currently or been in a relationship where the following occur: I choose not to answer Const General: healthy appearing, no acute distress, alert and awake Nutritional Appearance: well nourished Orientation/consciousness: oriented to person, oriented to place and oriented to time HENMT Ears: TM's normal bilaterally General nose exam: Normal nasal mucous membranes and turbinates present Eyes Conjunctivae: conjunctivae normal Sclerae: sclerae normal Pupils: Equal, round and reactive pupils present Neck Neck: Yes no lymphadenopathy and Yes no JVD Thyroid: Thyroid normal Carotids: no bruits Resp Effort & Inspection: normal respiratory effort and not tachypneic Auscultation: no crackles, no rales, no rhonchi and no wheezes Cardio Rate: regular rate Rhythm: regular rhythm Heart sounds: no murmurs and normal S1 and S2 GI Palpation (GI): Soft to palpation, nontender, no hepatomegaly and no splenomegaly Auscultation: normal bowel sounds Skin General skin exam: no rashes or lesions noted and dry skin Neuro General: oriented to person, oriented to place and oriented to time Cranial nerves: Yes Equal, round and reactive pupils present Speech: No Abnormal speech present Gait exam (Neuro): Normal gait present Motor exam (neuro): no tremor noted Extrem Right upper extremity: full ROM Left upper extremity: full ROM Right lower extremity: full ROM; no edema Left lower extremity: full ROM; no edema Psych Mental Status: mental status grossly normal Speech and movement: Normal speech and movement present Affect: normal affect Attitude: cooperative Thought process: Normal thought process present Coding Level of Care Code Est Pt Level 4 (89019) Diagnoses CKD (chronic kidney disease) stage 5, GFR less than 15 ml/min N18.5 Hyperkalemia E87.5 Coronary artery disease involving [place] coronary artery of [place] heart without angina pectoris I25.10 Coronary Disease-Associated Artery/Lesion type: [place] artery [place] vs. transplanted heart: [place] heart Associated angina: without angina Calculus of gallbladder without cholecystitis without obstruction K80.20 Cholecystitis presence: without cholecystitis Biliary obstruction: without biliary obstruction Primary insomnia F51.01 Insomnia type: primary Primary hypertension I10 Hypertension type: primary hypertension Assessment & Plan Assessment & Plan (1) CKD (chronic kidney disease) stage 5, GFR less than 15 ml/min: Code(s): N18.5 - Chronic kidney disease, stage 5 Category: Medical Plan: Chronic disease due to interstitial nephritis by biopsy. Initial biopsy was done only [facility] and no tissue was obtained. Repeat biopsy was done and was [facility] which revealed interstitial nephritis with global sclerosis. At present no signs or symptoms of uremia No absolute indication for dialysis yet Fluid status acceptable Continue to avoid nephrotoxic agents. Will monitor renal function closely (2) Hyperkalemia: Code(s): E87.5 - Hyperkalemia Category: Medical Plan: Has seen a dietitian and discussing low potassium diet. K was 5.2 Reviewed diet Discussed Low K diet Has been started on lokelma twice a week. Unfortunately unable to do twice a week due to side effects of intolerable diarrhea. (3) CAD (coronary artery disease): Code(s): I25.10 - Atherosclerotic heart disease of [place] coronary artery without angina pectoris Category: Medical Qualifiers: Coronary Disease-Associated Artery/Lesion type: [place] artery [place] vs. transplanted heart: [place] heart Associated angina: without angina Qualified Code(s): I25.10 - Atherosclerotic heart disease of [place] coronary artery without angina pectoris Plan: Patient followed by Cardiology, Blood pressure stable. Will continue current doses of antihypertensive medication. LDL optimal goal to be below 70 (4) Gallstone: Code(s): K80.20 - Calculus of gallbladder without cholecystitis without obstruction Category: Medical Qualifiers: Cholecystitis presence: without cholecystitis Biliary obstruction: without biliary obstruction Qualified Code(s): K80.20 - Calculus of gallbladder without cholecystitis without obstruction Plan: Has noted to have large gallstone The patient has been advised on dietary modifications to manage symptoms associated with gallstones. A surgical consultation for potential gallbladder removal has been discussed, considering the patient's symptoms of right upper quadrant pain and excessive gas. (5) Insomnia: Code(s): G47.00 - Insomnia, unspecified Category: Medical Qualifiers: Insomnia type: primary Qualified Code(s): F51.01 - Primary insomnia Plan: A trial of sleep medication has been proposed to improve the patient's sleep quality. The patient is advised to take the medication half an hour before bedtime and to avoid daytime napping to enhance nighttime sleep. (6) HTN (hypertension): Code(s): I10 - Essential (primary) hypertension Category: Medical Qualifiers: Hypertension type: primary hypertension Qualified Code(s): I10 - Essential (primary) hypertension Plan: The patient's hypertension management includes an increase in amlodipine dosage from 2.5 mg to 5 mg to better control blood pressure and potentially reduce headache frequency. Monitoring for side effects such as peripheral edema is advised. Goal blood pressures to be below 140/90 Orders: Orders Comprehensive [place]. Panel Fast Today I25.10 - Atherosclerotic heart disease of [place] coronary artery without angina pectoris Lipid Panel Today I25.10 - Atherosclerotic heart disease of [place] coronary artery without angina pectoris Complete Blood Count no Diff Today I25.10 - Atherosclerotic heart disease of [place] coronary artery without angina pectoris Medications: New hydroxyzine HCl 25 mg PO BEDTIME 30 tabs 0RF 30 days F51.01 - Primary insomnia amlodipine 5 mg PO DAILY 90 tabs 1RF 90 days I25.10 - Atherosclerotic heart disease of [place] coronary artery without angina pectoris Discontinued prednisone Discontinued Reason: Doctor's Order 10 mg PO ONCE PRN 10 tabs 0RF For gout/Pain amlodipine Discontinued Reason: Doctor's Order 2.5 mg PO DAILY 90 tabs 4RF
--- OUTSIDE RECORDS SUMMARY | 2025-07-09 16:05 | XMS_ITS | Clinical Summary ---
Author Organization [facility] Address [address] [place] [address] Phone Care Team Providers Care Physical Therapy Resident Name Role Phone Joycelyn Brothers DO Primary [...] adenomatous polyp of colon 01/26/2024 Tinnitus 03/21/2023 [facility] current use of anticoagulant Overview (01/26/2024): Last Assessment & Plan: - indication: Atrial fibrilation - medication: warfarin - monitored by [facility] Anticoagulation Clinic - most recent [...] 04/02/2021 Overview (01/26/2024): Last Assessment & Plan: -Clinical Law Professor: Dr. Roland, last seen in 12/27/21 -Baseline SCr 2.4-2.8; eGFR 22-26, CrCl 28.5 -Most recent lab: 08/05/22 K 5.2, BUN 46, SCr 2.48; eGFR 26 -Avoid nephrotoxic drugs/substances and behaviors, including NSAIDs use. -Renal dose medications. Tinea pedis 04/30/2018 Ischemic heart disease 04/30/2018 Overview (01/26/2024): Last Assessment & Plan: -First Aid Instructor, Dr. Cain, seen on 11/10/22 -TIA in January 2018. Dx Afib. Started on Coumadin. -03/14/18 BRITTANY to distal RCA. Completed uninterrupted Plavix and Coumadin therapy for 1 year. Plan was to swithc Plavix to ASA. Pt is not on ASA or Plavix at this time because his CAD is stable per reed man. - Last echo in 12/28/21: Normal LV function, EF 55-60%. slight decrease from last echo. mild GERD reguigitation -Continue current medications History of placement of stent for coronary arter y disease 04/30/2018 Chronic atrial fibrillation 02/09/2018 Overview (01/26/2024): Last Assessment & Plan: A-fib today, rate controlled. pt is usually asymptomatic whether he is bradycardia and tachycardia -his reed man recommends rate control rather than rhythm control - Continue rate control with metoprolol tartrate 100 mg bid - Continue digoxin 125 mcg daily - Continue warfarin, which is monitored by [facility] Anticoagulation clinic -- Treatment Hx: [...] Years) Discontinued 03/21/2016, 06/18/2015, 04/14/2010 Insurance [address] [place] [id number] [employer] ([id number]) [address] [place] [id number] [facility] [employer] ([id number]) Care Teams Physical Therapy Resident Relationship Specialty Start Date End Date Joycelyn Brothers DO PCP - General 11/30/20
--- OUTSIDE RECORDS SUMMARY | 2025-07-09 16:05 | XMS_ITS | Patient Health Record ---
Author Organization [facility] Address [address] [place] [address] Care Team Providers Care Returned Case Inspector Name Role Phone Joycelyn Brothers M.D. Primary Care Provider Jasson Adams Unavailable [phone] Allergies Allergen (clinical drug ingredient) Drug/Non Drug [...] Problem Status W/U Status Risk Notes Problem [id number] Encounter for screening for malignant neoplasm of colon (Z12.11) Active confirmed Problem [id number] History of adenomatous polyp of colon (Z86.010) Active confirmed Problem [id number] Abdominal bloating (R14.0) Active confirmed Problem [id number] Preprocedural examination (Z01.818) Active confirmed Problem 126748466 Gallstones (K80.20) Active confirmed Problem 056929473 Borborygmus (R19.8) Active confirmed Plan Of Treatment Future Test Test Name Order Date UPPER GI ENDOSCOPY 08/23/2012 COLONOSCOPY 08/23/2012 COLONOSCOPY 12/26/2018 Insurance Providers Payer Name Payer Address Payer Phone Subscriber Number Group Number Insured Name Patient Relationship to Insured Coverage Start Date Coverage End Date [facility] [employer] [address] [address] [place] [phone] [id number] SEMAJ PATTERSON Self - patient is the insured Medical (General) History Medical History History ICD Code Kidney disease-followed by Dr. Tae johansen HTN Denies [place],CVA,Lung disease Hyperlipidemia Rx'd for [...]
--- OUTSIDE RECORDS SUMMARY | 2025-07-09 16:05 | XMS_ITS | Encounter Summary ---
Author Organization [employer] Address [address] [place] [address] [address] [place] [address] Care Team Providers Care Director Of Consumer Affairs Name Role Phone Sherry Ward MD Primary Care Provider [phone] Robe Parker PharmD Unavailable [phone] Encounter Details Date Type Department Care Team (Late st Contact Info) Description 01/23/2023 Orders Only [facility] [address] [place] [id number] Nivia Serrato MD [address] [place], [place] [phone] Hyperkalemia (Primary Dx) Social History Tobacco Use [...] in this encounter Care Teams Director Of Consumer Affairs Relationship Specialty Start Date End Date Sherry Ward MD [address] [place] [address] [id number] PCP - General Family Medicine 11/20/18 12/17/23 Robe Parker, PharmD [address] [place] [id number] Pharmacist Internal Medicine 06/15/23 documented as of this encounter
== END 2025-07-09 15:58 | disposition home or self-care (01) ==
LOC: HO.HMCH 15:12
PROVIDERS: PCP Physician Assistant; Visit Provider Physician Assistant
DX: N18.5 Chronic kidney disease, stage 5 (principal); E87.5 Hyperkalemia; I25.10 Atherosclerotic heart disease of native coronary artery without angina pectoris; K80.20 Calculus of gallbladder without cholecystitis without obstruction; F51.01 Primary insomnia; I12.0 Hypertensive chronic kidney disease with stage 5 chronic kidney disease or end stage renal disease

== ENCOUNTER → 2025-07-09 15:11 | Outpatient (BNVA) | payer OTHER, SELFPAY | PROVIDERS: PCP Physician Assistant; Visit Provider Physician Assistant | DX: I12.0 Hypertensive chronic kidney disease with stage 5 chronic kidney disease or end stage renal disease (principal); N18.5 Chronic kidney disease, stage 5; E87.5 Hyperkalemia; I25.10 Atherosclerotic heart disease of native coronary artery without angina pectoris; K80.20 Calculus of gallbladder without cholecystitis without obstruction; F51.01 Primary insomnia | CPT/HCPCS: 99212 ==

== ENCOUNTER 2025-07-23 13:55 | Emergency (ER) | payer OTHER, SELFPAY ==
--- NOTE | ~2025-07-23 | XR_ITS ---
EXAMINATION: XR CHEST CLINICAL INFORMATION: dificulty breathing COMPARISON: None available. TECHNIQUE: 2 views of the chest were obtained. FINDINGS: Stomach fundus is distended with gas. Cardiac silhouette is borderline enlarged. Lungs are clear. Vessels are mildly prominent. There is mild blunting of the right calcific angle XR/XR chest 2V IMPRESSION: Mild blunting of the right costophrenic angle could represent atelectasis or trace effusion. Borderline cardiac enlargement and suspected pulmonary vascular congestion. Electronically signed by: Laureano Brito MD 07/23/2025 02:42 PM EDT
[2025-07-23 13:59] VITALS: BP 164/107; PULSE 107; RESP 18; TEMP 36.5; O2SAT 97; BMI 29.5
--- NOTE | 2025-07-23 14:04 | ECG_ITS ---
Test Reason : cp Blood Pressure : */* mmHG Vent. Rate : 107 BPM Atrial Rate : * BPM P-R Int : * ms QRS Dur : 86 ms QT Int : 346 ms P-R-T Axes : * -15 44 degrees QTcB Int : 461 ms Atrial fibrillation with rapid ventricular response Abnormal ECG When compared with ECG of 01-Oct-2024 22:21, Vent. rate has increased by 35 bpm Nonspecific T wave abnormality no longer evident in Inferior leads Nonspecific T wave abnormality, improved in Lateral leads QT has lengthened Referred By: Brittany Courtney Electronically Signed By: Artie Huntley
--- NOTE | 2025-07-23 14:20 | ED.GENADULT ---
HPI - General Adult General Chief complaint: Upper Respiratory Symptoms Stated complaint: cold symptoms, resp issues Time Seen by Provider: 07/23/25 16:24 Source: patient and family (daughter interpreting pt understand some yi as well.) Mode of arrival: ambulatory Limitations: no limitations and language barrier History of Present Illness ED Provider: HPI narrative: 75-year-old male here with his daughter, patient has history of AFib on warfarin, has had some shortness of breath, recent workup by PCP had a CT to monitor for sending aneurysm, no chest pain, daughter states that approximately 3 weeks ago he had flu shot and shortly after has had feelings of respiratory distress worse when he is going to bed, loose stools, no fevers or chills just overall his daughter states he has not been the same. Related Data Home Medications ?Medication ?Instructions ?Recorded ?Confirmed warfarin 5 mg tablet 5 mg PO SUTUWETHFRSA 10/02/24 07/09/25 warfarin 5 mg tablet 7.5 mg PO MO 10/02/24 07/09/25 Previous Rx's ?Medication ?Instructions ?Recorded compression socks, large #2 ea 06/24/24 atorvastatin 80 mg tablet 80 mg PO QAM #90 tabs 10/06/24 meclizine 25 mg tablet 25 mg PO TID PRN dizziness 30 days 01/29/25 #90 tabs fluticasone propionate 50 1 spray intranasal DAILY 30 days 03/30/25 mcg/actuation nasal #16 grams spray,suspension gabapentin 100 mg capsule 200 mg (2 x 100 mg) PO BEDTIME 30 04/01/25 days #60 caps sodium zirconium cyclosilicate 5 10 g PO .COMPLEX #11 ea 04/28/25 gram oral powder packet (Lokelma) cholecalciferol (vitamin D3) 25 25 mcg PO DAILY #90 caps 05/05/25 mcg (1,000 unit) capsule febuxostat 40 mg tablet (Uloric) 40 mg PO DAILY #30 tabs 05/28/25 furosemide 40 mg tablet 40 mg PO QAM #90 tabs 07/07/25 metoprolol tartrate 50 mg tablet 50 mg PO BID 90 days #180 tabs 07/07/25 amlodipine 5 mg tablet 5 mg PO DAILY 90 days #90 tabs 07/09/25 hydroxyzine HCl 25 mg tablet 25 mg PO BEDTIME 30 days #30 tabs 07/09/25 dicyclomine 20 mg tablet 20 mg PO TID PRN abdominal pain 07/23/25 #20 tabs Allergies Allergy/AdvReac Type Severity Reaction Status Date / Time lisinopril (LISINOPRIL) Allergy Severe ACUTE Verified 07/23/25 14:02 KIDNEY INJURY oxycodone (Percocet) Allergy Intermediate agitation Verified 07/23/25 14:02 codeine (CODEINE) Allergy Unknown AGITATION Verified 07/23/25 14:02 morphine (MORPHINE) Allergy Unknown AGITATION, Verified 07/23/25 14:02 confusion From PERCOCET Allergy Unknown AGITATION Uncoded 07/23/25 14:02 Review of Systems Constitutional: Constitutional: Reports as per [facility] Past Medical History Medical History (Updated 07/23/25 @ 17:10 by Jared Esqueda DO) HTN (hypertension) Allergies Sinus bradycardia Pre-op examination Annual physical exam History of TIA (transient ischemic attack) Gout Personal history of nicotine dependence Chronic kidney disease, stage 3 unspecified Benign prostatic hyperplasia with lower urinary tract symptoms CAD (coronary artery disease) Paroxysmal atrial fibrillation Surgical History Stented coronary artery Hx of colonoscopy Hx of cardiac cath Hx of cystoscopy History of esophagogastroduodenoscopy (EGD) Hx of cataract extraction Family History Family History Mother CAD (coronary artery disease) Diabetes HTN (hypertension) Father CAD (coronary artery disease) Diabetes HTN (hypertension) Social History Social History Household Members: None Housing: Apartment Do you presently have visiting nurse or other home services: No Alcohol intake: former Patient Tobacco Use Status: Former Tobacco user Tobacco use type: Cigarette Years Smoked: 40 +/- e-Cigarette/Vaping Use: Never Used Second Hand Smoke Exposure: No Advance Directives: No Advance Directives Information Provided: No Do you have a plan to hurt others: No Plan service: No Current occupational status: retired and disabled Cognitive needs: No Hearing needs: No Vision needs: Yes Physical Exam ED Vital Signs: Vital Signs - 24 hr 07/23/25 13:59 Temperature 97.7 F Pulse Rate 107 H Respiratory Rate 18 Blood Pressure 164/107 H Pulse Oximetry 97 Oxygen Delivery Method Room Air BMI result Body Mass Index 29.5 Const Other: Gen: ?Overall well-appearing patient HEENT: Blind left eye, moist oral mucosa Neck: Supple, no LAD CV: Irregular regular Resp: ?No wheezing rales rhonchi no stridor moving air well Abd: ?Bowel sounds are present, no tenderness no rebound no rigidity MSK: FROM, strength 5/5 all extremities Skin: Warm, dry, intact, Neuro: ?Alert and oriented x3, moving upper and lower extremities symmetrically, no obvious facial asymmetry noted Course Course Course Narrative: This is a Rapid Medical Examination (RME) performed by Roopa Courtney PA-C in triage. Full HPI, ROS, assessment and treatment plan per primary provider in the Main ED. Hx: 75 yo M here for eval of cough x weeks. feels gas in his abd that moves to his lungs when he lies down at night, making it difficult for him to breath. Plan: labs, cxr, ekg Medical Decision Making Medical Decision Making MDM Narrative: Presenting with few complaints, sounds like patient has had degree of respiratory complaints ever since he has had his flu shot 2 weeks ago also loose stools and feeling gassy and I think as I spoke to the patient that sounds like it is bothering him the most, no chest pain no fevers or chills, he has been monitored for his renal function and he has a history of ascending thoracic aneurysm and in April has had a CT chest, 17:00 patient's EKG, chest x-ray has been reassuring, EKG with AFib, slightly elevated rate, nothing too concerning no changes to suspect underlying ACS, chest x-ray without obvious pneumonia consolidations or significant pulmonary edema, he has elevated creatinine which is his baseline, slightly elevated potassium nothing that needs correction, and I spoke to patient's daughter to see what symptoms bother him the most it sounds like that he is feeling more gassy at night and so I can address that. Otherwise can follow up with the PCP Differential Diagnosis Differential Diagnoses: The differential diagnosis associated with the presentation includes (CHF, COPD exacerbation, pneumonia, pneumothorax, ACS, PE,) 2022 Emergency Medicine Coding Guide from [employer] on 07/23/2025 All calculations should be rechecked by clinician prior to use RESULT SUMMARY: 5 Estimated Level of Service Problems: Moderate (4) Risk: High (5) Data: Extensive (5) NARRATIVE MDM: This patient's problem complexity is Moderate as patient: has a new undiagnosed problem with uncertain prognosis but that could be serious. This patient's risk is High due to: overall presentation requiring evaluation for a potentially High-risk process. This patient's data complexity is Extensive due to: -multiple tests ordered/reviewed -independent interpretation of imaging or EKG INPUTS: Number and Complexity ?> 5 = 4: undiagnosed new problem, uncertain outcome (e) Risk level ?> 4 = High Tests ordered ?> 3 = =3 Tests results reviewed (excluding labs) ?> 2 = 2 Prior external notes reviewed ?> 0 = 0 Assessment requiring and independent historian ?> 0 = No Independent interpretation of tests ?> 1 = Yes Discussed management/test interpretation w/external professional ?> 0 = No Admission/Observation Consideration of admission/observation: Escalation of care including admission/observation considered Lab Data MDM Lab Attestation statement: I reviewed the patient's lab results. 07/23/25 14:28 07/23/25 14:28 Labs: Lab Results 07/23/25 Range/Units 14:28 WBC 7.9 (4.8-10.8) X10*3/uL RBC 4.12 L (4.60-5.80) X10*6/uL Hgb 11.1 L (14.0-18.0) g/dl Hct 35.7 L (42.0-52.0) % MCV 86.7 (80.0-98.0) fL MCH 26.9 L (27.0-33.0) pg MCHC 31.1 (31.0-36.0) g/dl RDW 16.3 H (11.0-16.0) % Plt Count 185 (160-400) X10*3/uL MPV 11.8 (9.4-12.4) fL Immature Gran % (Auto) 0.4 (0.0-0.4) % Neut % (Auto) 66.1 (45-73) % Lymph % (Auto) 13.5 L (20-40) % Reagan % (Auto) 12.8 H (2-11) % Eos % (Auto) 6.2 H (0-4) % Baso % (Auto) 1.0 (0-2) % Lymph # (Auto) 1.1 L (1.2-4.9) X10*3/uL Reagan # (Auto) 1.0 (0.1-1.2) X10*3/uL Eos # (Auto) 0.5 H (0.0-0.4) X10*3/uL Baso # (Auto) 0.1 (0.0-0.2) X10*3/uL Abs Immat Gran (auto) 0.03 (0.00-0.03) X10*3/uL Absolute Neuts (auto) 5.2 (2.0-8.3) x10*3/uL Absolute Nucleated RBC 0.000 (0.0-0.012) X10*3/uL Nucleated RBC % (auto) 0.0 (0.0-0.2) /100WBC Sodium 144 (135-145) mmol/L Potassium 5.7 H D (3.3-5.1) mmol/L Chloride 112 H (96-108) mmol/L Carbon Dioxide 23 (22-29) mmol/L Anion Gap 15 (12-20) BUN 95 H (9-16) mg/dL Creatinine 5.52 H* (0.5-1.4) mg/dL Estim Creat Clear Calc 11.6 Estimated GFR 10 Random Glucose 83 (60-115) mg/dL Calcium 9.1 (8.4-10.2) mg/dL Magnesium 2.2 (1.6-2.6) mg/dL Total Bilirubin 1.0 (0.0-1.0) mg/dL AST 22 (5-37) U/L ALT 17 (0-40) U/L Alkaline Phosphatase 83 (39-117) U/L Troponin I High Sens 9.1 D (<3.5-35.0) ng/L B-Natriuretic Peptide 899 H (<100) pg/mL Total Protein 7.3 (6.5-8.0) g/dL Albumin 4.0 (3.5-5.0) g/dL Independent Interpretation I performed an independent interpretation of an: EKG (107 Afib, no QTC changes no changes associated with the ACS,) and Plain X-Ray Radiology Impression Discussion of test interpretation with radiology: I have reviewed the radiologist's reading. External Record Review External record reviewed: Outpatient record Prescription Management I considered prescription management with: Antibiotic Chronic Conditions Patient?s care impacted by: Other (AFib, CKD) Discharge Plan Discharge Clinical Impression: Gas bloat syndrome, Atrial fibrillation Additional Instructions: As discussed chronic renal failure not much change, chest x-ray also not much change compared to prior x-rays that I have looked at, EKG with atrial fibrillation, continue using warfarin, I would not recommend any new medication changes at this time you can try using dicyclomine for abdominal upset, follow up with the PCP and if you have anything that is worse please come back to the ER for re-evaluation. Prescriptions: New dicyclomine 20 mg tablet 20 mg PO TID PRN (Reason: abdominal pain) Qty: 20 0RF No Action atorvastatin 80 mg tablet 80 mg PO QAM Qty: 90 3RF meclizine 25 mg tablet 25 mg PO TID PRN (Reason: dizziness) 30 Days Qty: 90 6RF Rx Instructions: pt states he takes one every morning fluticasone propionate 50 mcg/actuation spray,suspension 1 spray intranasal DAILY 30 Days Qty: 16 1RF gabapentin 100 mg capsule 200 mg PO BEDTIME 30 Days Qty: 60 3RF Rx Instructions: 2 capsules cholecalciferol (vitamin D3) 25 mcg (1,000 unit) capsule 25 mcg PO DAILY Qty: 90 0RF febuxostat [Uloric] 40 mg tablet 40 mg PO DAILY Qty: 30 6RF furosemide 40 mg tablet 40 mg PO QAM Qty: 90 0RF metoprolol tartrate 50 mg tablet 50 mg PO BID 90 Days Qty: 180 0RF Protocol: Hold for SBP/HR < HOLD for SBP < : 90 HOLD for HR < : 60 warfarin 5 mg tablet 7.5 mg PO MO Protocol: Dose Management Condition: Monday (Week One) Dose/Route: 5 mg Instruction: 1 x 5 mg tablet Condition: Monday Dose/Route: 7.5 mg Instruction: 1.5 x 5 mg tablets Condition: Monday Dose/Route: 5 mg Instruction: 1 x 5 mg tablet Condition: Monday Dose/Route: 5 mg Instruction: 1 x 5 mg tablet Condition: Dose/Route: 5 mg Instruction: 1 x 5 mg tablet Condition: Monday Dose/Route: 5 mg Instruction: 1 x 5 mg tablet Condition: Monday Dose/Route: 5 mg Instruction: 1 x 5 mg tablet Condition: Monday ( Two) Dose/Route: 5 mg Instruction: 1 x 5 mg tablet Condition: Monday Dose/Route: 7.5 mg Instruction: 1.5 x 5 mg tablets Condition: Monday Dose/Route: 5 mg Instruction: 1 x 5 mg tablet Condition: Monday Dose/Route: 5 mg Instruction: 1 x 5 mg tablet Condition: Dose/Route: 5 mg Instruction: 1 x 5 mg tablet Condition: Monday Dose/Route: 5 mg Instruction: 1 x 5 mg tablet Condition: Monday Dose/Route: 5 mg Instruction: 1 x 5 mg tablet Protocol Text: Adjustment Start Date: 07/03/25 INR Value: 2.4 INR Date: 07/03/25 Recheck Date: 08/02/25 warfarin 5 mg tablet 5 mg PO SUTUWETHFRSA Protocol: Dose Management Condition: Monday ( One) Dose/Route: 5 mg Instruction: 1 x 5 mg tablet Condition: Monday Dose/Route: 7.5 mg Instruction: 1.5 x 5 mg tablets Condition: Monday Dose/Route: 5 mg Instruction: 1 x 5 mg tablet Condition: Monday Dose/Route: 5 mg Instruction: 1 x 5 mg tablet Condition: Dose/Route: 5 mg Instruction: 1 x 5 mg tablet Condition: Monday Dose/Route: 5 mg Instruction: 1 x 5 mg tablet Condition: Monday Dose/Route: 5 mg Instruction: 1 x 5 mg tablet Condition: Monday () Dose/Route: 5 mg Instruction: 1 x 5 mg tablet Condition: Monday Dose/Route: 7.5 mg Instruction: 1.5 x 5 mg tablets Condition: Monday Dose/Route: 5 mg Instruction: 1 x 5 mg tablet Condition: Monday Dose/Route: 5 mg Instruction: 1 x 5 mg tablet Condition: Dose/Route: 5 mg Instruction: 1 x 5 mg tablet Condition: Monday Dose/Route: 5 mg Instruction: 1 x 5 mg tablet Condition: Monday Dose/Route: 5 mg Instruction: 1 x 5 mg tablet Protocol Text: Adjustment Start Date: 07/03/25 INR Value: 2.4 INR Date: 07/03/25 Recheck Date: 08/02/25 (DME) compression socks, large Misc See Rx Instructions .Route Qty: 2 0RF Rx Instructions: As directed hydroxyzine HCl 25 mg tablet 25 mg PO BEDTIME 30 Days Qty: 30 0RF amlodipine 5 mg tablet 5 mg PO DAILY 90 Days Qty: 90 1RF Lokelma 5 gram powder in packet 10 g PO .COMPLEX Qty: 11 3RF Rx Instructions: 10 grams orally Every Monday and ; Referrals: Preet An PA-C [Primary Care Provider, Internal Medicine] - 10 days Print Language: Irish
[2025-07-23 14:38] LABS: MANUAL DIFF FLAG NO
[2025-07-23 14:39] LABS: Hematocrit 35.7 % (42.0-52.0); Hemoglobin 11.1 g/dl (14.0-18.0); Imm Gran Abs Auto 0.03 X10*3/uL (0.00-0.03); Imm Gran Pct Auto 0.4 % (0.0-0.4); Lymphocytes Absolute Auto 1.1 X10*3/uL (1.2-4.9); Mean Corpuscular HGB Conc 31.1 g/dl (31.0-36.0); Mean Corpuscular Hemoglobin 26.9 pg (27.0-33.0); Mean Corpuscular Volume 86.7 fL (80.0-98.0); NRBC Abs Auto 0.000 X10*3/uL (0.0-0.012); NRBC Pct Auto 0.0 /100WBC (0.0-0.2); Platelet Count 185 X10*3/uL (160-400); Red Blood Count 4.12 X10*6/uL (4.60-5.80); White Blood Count 7.9 X10*3/uL (4.8-10.8)
[2025-07-23 14:59] LABS: Alanine Aminotransferase 17 U/L (0-40); Albumin Level 4.0 g/dL (3.5-5.0); Alkaline Phosphatase 83 U/L (39-117); Anion Gap 15 (12-20); Aspartate Amino Transferase 22 U/L (5-37); B Type Natriuretic Peptide 899 pg/mL (<100); Blood Urea Nitrogen 95 mg/dL (9-16); Calcium 9.1 mg/dL (8.4-10.2); Carbon Dioxide 23 mmol/L (22-29); Chloride 112 mmol/L (96-108); Creatinine Clr Calc Pharmacy 11.6; Estimated Glomerular Filt Rate 10; Magnesium 2.2 mg/dL (1.6-2.6); Potassium 5.7 mmol/L (3.3-5.1); Sodium 144 mmol/L (135-145); Total Protein 7.3 g/dL (6.5-8.0)
[2025-07-23 15:00] LABS: Troponin-I High Sensitivity 9.1 ng/L (<3.5-35.0)
--- OUTSIDE RECORDS SUMMARY | 2025-07-23 18:00 | XMS_ITS | Encounter Summary ---
Author Organization [employer] Address [address] [place] [address] [address] [place] [address] Care Team Providers Care Institutional Nutrition Consultant Name Role Phone Sherry Ward MD Primary Care Provider [phone] Robe Parker PharmD Unavailable [phone] Reason for Referral * Imaging (Routine) - Closed Specialty Diagnoses / Procedures Referred By Contac t Referred To Contact Diagnoses Vertigo Ischemic heart disease Chronic atrial fibrillation (CMS/HCC) Essential hypertension Procedures Mr Brain w/ and w/o Contrast Sherry Ward MD [address] [place] [address] Phone: tel: fax: [facility] [place] [address] [place], [place] Phone: tel: fax: Referral ID Status Reason Start Date Expiration Date Visits Re quested Visits Authorized [id number] Closed 11/17/2022 11/17/2023 1 1 Encounter Details Date Type Department Care Team (Late st Contact Info) Description 11/08/2022 Orders Only [facility] MED[facility]INE [address] [place], [place] [phone] Sherry Ward MD [address] [place], [place] [phone] Vertigo (Primary Dx); Ischemic heart disease; Chronic [...] hypertension documented in this encounter Care Teams Institutional Nutrition Consultant Relationship Specialty Start Date End Date Sherry Ward MD [address] [place] [address] PCP - General Family Medicine 11/20/18 12/17/23 Robe Parker, Gabby [address] [place] [address] Pharmacist Internal Medicine 06/15/23 documented as of this encounter
--- OUTSIDE RECORDS SUMMARY | 2025-07-23 18:00 | XMS_ITS | Encounter Summary ---
Author Organization [facility] Address [address] [place] [address] [address] [place] [address] Care Team Providers Care Prosthetist Name Role Phone Sherry Ward MD Primary Care Provider [phone] Robe Parker PharmD Unavailable [phone] Encounter Details Date Type Department Care Team (Late st Contact Info) Description 01/23/[address] [facility] MEDICINE [address] [place] [id number] Nivia Serrato MD [address] [place], [place] [phone] Hyperkalemia (Primary Dx) Social History Tobacco Use [...] Hyperpotassemia documented in this encounter Care Teams Prosthetist Relationship Specialty Start Date End Date Sherry Ward MD [address] [place] [phone] PCP - General Family Medicine 11/20/18 12/17/23 Robe Parker, PharmD [address] [place] [id number] Pharmacist Internal Medicine 06/15/23 documented as of this encounter
--- OUTSIDE RECORDS SUMMARY | 2025-07-23 18:00 | XMS_ITS | Clinical Summary ---
Author Organization [facility] Address [address] [place] [address] Phone Care Team Providers Care Ship Yard Electrical Person Name Role Phone Joycelyn Brothers DO Primary [...] fibrilation - medication: warfarin - monitored by [facility] Anticoagulation Clinic - most recent INR 1.6 [...] 04/02/2021 Overview (01/26/2024): Last Assessment & Plan: -Letter Carrier: Dr. Roland, last seen in 12/27/21 -Baseline SCr 2.4-2.8; eGFR 22-26, CrCl 28.5 -Most recent lab: 08/05/22 K 5.2, BUN 46, SCr 2.48; eGFR 26 -Avoid nephrotoxic drugs/substances and behaviors, including NSAIDs use. -Renal dose medications. Tinea pedis 04/30/2018 Ischemic heart disease 04/30/2018 Overview (01/26/2024): Last Assessment & Plan: -Assembler Tubing, Dr. Cain, seen on 11/10/22 -TIA in January 2018. Dx Afib. Started on Coumadin. -03/14/18 BRITTANY to distal RCA. Completed uninterrupted Plavix and Coumadin therapy for 1 year. Plan was to swithc Plavix to ASA. Pt is not on ASA or Plavix at this time because his CAD is stable per accounts receivable executive. - Last echo in 12/28/21: Normal LV function, EF 55-60%. slight decrease from last echo. mild GERD reguigitation -Continue current medications History of placement of stent for coronary arter y disease 04/30/2018 Chronic atrial fibrillation 02/09/2018 Overview (01/26/2024): Last Assessment & Plan: A-fib today, rate controlled. pt is usually asymptomatic whether he is bradycardia and tachycardia -his accounts receivable executive recommends rate control rather than rhythm control - Continue rate control with metoprolol tartrate 100 mg bid - Continue digoxin 125 mcg daily - Continue warfarin, which is monitored by [facility] Anticoagulation clinic -- Treatment Hx: --Previously on [...] Years) Discontinued 03/21/2016, 06/18/2015, 04/14/2010 Insurance [address] [place] [id number] [employer] ([id number]) [address] [place] [id number] [facility] [employer] ([id number]) Care Teams Ship Yard Electrical Person Relationship Specialty Start Date End Date Joycelyn Brothers DO PCP - General 11/30/20
--- OUTSIDE RECORDS SUMMARY | 2025-07-23 18:00 | XMS_ITS | Patient Health Record ---
Author Organization [facility] Address [address] [place] [address] Care Team Providers Care Scouring Machine Operator Name Role Phone Joycelyn Brothers M.D. Primary Care Provider Jasson Adams Unavailable [phone] Allergies Allergen (clinical drug ingredient) Drug/Non Drug [...] Problem Status W/U Status Risk Notes Problem [id number] Encounter for screening for malignant neoplasm of colon (Z12.11) Active confirmed Problem 583341008 History of adenomatous polyp of colon (Z86.010) Active confirmed Problem 396323075 Abdominal bloating (R14.0) Active confirmed Problem 478978370883104 Preprocedural examination (Z01.818) Active confirmed Problem 149158223 Gallstones (K80.20) Active confirmed Problem 637214818 Borborygmus (R19.8) Active confirmed Plan Of Treatment Future Test Test Name Order Date UPPER GI ENDOSCOPY 08/23/2012 COLONOSCOPY 08/23/2012 COLONOSCOPY 12/26/2018 Insurance Providers Payer Name Payer Address Payer Phone Subscriber Number Group Number Insured Name Patient Relationship to Insured Coverage Start Date Coverage End Date [facility] [address] [address] [place] [phone] [id number] SEMAJ PATTERSON Self - patient is the insured Medical (General) History Medical History History ICD Code Kidney disease-followed by Dr. Tae johansen HTN Denies VA,CVA,Lung disease Hyperlipidemia Rx'd for H.pylori in 06/2012 [...]
--- OUTSIDE RECORDS SUMMARY | 2025-07-23 18:00 | XMS_ITS | Encounter Summary ---
Author Organization [facility] Address [address] [place] [address] Phone Care Team Providers Care Drawer Fitter Name Role Phone Joycelyn Brothers DO Primary Care Provider Unava ilable Encounter Details Date Type Department Care Team (Late st Contact Info) Description 11/08/2022 Telephone [facility] [address] [place] [address] Alex Garcia MD Social History [...] She also wants to add that his community outreach coordinator started him on digoxin 0.1 mg daily. Please advise Thank you CB# [phone] documented in this encounter Plan of Treatment Not on file documented as of this encounter Visit Diagnoses Not on filedocumented in this encounter Care Teams Drawer Fitter Relationship Specialty Start Date End Date Joycelyn Brothers DO PCP - General 11/30/20 documented as of this encounter
--- OUTSIDE RECORDS SUMMARY | 2025-07-23 18:00 | XMS_ITS | Encounter Summary ---
Author Organization [employer] Address [address] [facility] [address] [place] [address] Care Team Providers Care Sisal Operator Name Role Phone Sherry Ward MD Primary Care Provider [phone] Robe Parker PharmD Unavailable [phone] Encounter Details Date Type Department Care Team (Late st Contact Info) Description 11/02/2023 Orders Only [facility] MEDICINE [address] [place], [place] [phone] Sherry Ward MD [address] [place], [place] [phone] Left foot pain (Primary Dx) Social History [...] limb documented in this encounter Care Teams Sisal Operator Relationship Specialty Start Date End Date Sherry Ward MD [address] [place] [address] PCP - General Family Medicine 11/20/18 12/17/23 Robe Parker, PharmD [address] [place] [address] Pharmacist Internal Medicine 06/15/23 documented as of this encounter
--- OUTSIDE RECORDS SUMMARY | 2025-07-23 18:00 | XMS_ITS | Encounter Summary ---
Author Organization [employer] Address [address] [facility] [address] [place] [address] Care Team Providers Care Reversal Print Inspector Name Role Phone Sherry Ward MD Primary Care Provider [phone] Robe Parker PharmD Unavailable Encounter Details Date Type Department Care Team (Late st Contact Info) Description 11/04/2022 Orders Only [facility] MEDICINE [address] [place] [address] Sharon Ko, RN Social History Tobacco Use [...] AM EST documented as of this encounter Functional Status * Over the past 2 weeks, how often have you been bothered by any of the following problems? Question Answer Date of Assessment Author Little interest or pleasure in doing things Not at all 11/07/2022 10:52 AM EST Boris Salguero MA Feeling down, depressed, or hopeless Not at all 11/07/2022 10:52 AM EST Boris Salguero MA Patient Health Questionnaire-2 Score 0 11/07/2022 10:52 AM Cherelle Montgomery MA documented as of this encounter Plan of Treatment Not on file documented as of this encounter Visit Diagnoses Not on filedocumented in this encounter Care Teams Reversal Print Inspector Relationship Specialty Start Date End Date Sherry Ward MD [address] [place] [address] PCP - General Family Medicine 11/20/18 12/17/23 Robe Parker, IrisD [address] [place] [address] Pharmacist Internal Medicine 06/15/23 documented as of this encounter
--- OUTSIDE RECORDS SUMMARY | 2025-07-23 18:01 | XMS_ITS | Encounter Summary ---
Author Organization [facility] Address [address] [facility] [address] [place] [address] Phone Care Team Providers Care Production Helper Name Role Phone Joycelyn Brothers DO Primary Care Provider Ema ilva Encounter Details Date Type Department Care Team (Late st Contact Info) Description 05/29/2021 Orders Only [facility] [address] [place] [phone] Alex Garcia MD Chronic kidney disease stage [...] (HCC) documented in this encounter Care Teams Production Helper Relationship Specialty Start Date End Date Joycelyn Brothers DO PCP - General 11/30/20 documented as of this encounter
--- OUTSIDE RECORDS SUMMARY | 2025-07-23 18:01 | XMS_ITS | Encounter Summary ---
Author Organization [employer] Address 75 [facility] 7t [place] [address] Care Team Providers Care Breaker Up Name Role Phone Sherry Ward MD Primary Care Provider [phone] Robe Parker PharmD Unavailable [phone] Encounter Details Date Type Department Care Team (Late st Contact Info) Description 11/02/[address] [facility] MEDICINE [address] [place], [place] [phone] Sherry Ward MD [address] [place], [place] [phone] Social History Tobacco Use Types Packs/Day Years [...] on filedocumented in this encounter Care Teams Breaker Up Relationship Specialty Start Date End Date Sherry Ward MD [address] [place] [address] PCP - General Family Medicine 11/20/18 12/17/23 Robe Parker, PharmD [address] [place] [address] Pharmacist Internal Medicine 06/15/23 documented as of this encounter
--- OUTSIDE RECORDS SUMMARY | 2025-07-23 18:01 | XMS_ITS | Encounter Summary ---
Author Organization [employer] Address 75 [facility] 7t [place] [address] Care Team Providers Care Electric Blanket Wirer Name Role Phone Sherry Ward MD Primary Care Provider [phone] Robe Parker PharmD Unavailable [phone] Reason for Visit * Reason Onset Date Comments triage 11/25/2022 Encounter Details Date Type Department Care Team ([facility] st Contact Info) Description 11/25/2022 Telephone [facility] MEDICINE [address] [place], [place] [phone] Sherry Ward MD [address] [place], [place] [phone] triage Social History Tobacco Use Types Packs/Day [...] 11/25/2022 4:06 PM EST Triage call with [email or web address] Registered Respiratory Technician ID [id number] Pt reports son came over this morning to test with home test. Pt isn't sure if it is positive and is requesting medication. Pt reports has had Covid before . Pt is unable to come to [facility] today for further testing. Pt symptoms [...] on filedocumented in this encounter Care Teams Electric Blanket Wirer Relationship Specialty Start Date End Date Sherry Ward MD [address] [place] [address] PCP - General Family Medicine 11/20/18 12/17/23 Robe Parker, IrisD [address] [place] [address] Pharmacist Internal Medicine 06/15/23 documented as of this encounter
--- OUTSIDE RECORDS SUMMARY | 2025-07-23 18:01 | XMS_ITS | Encounter Summary ---
Author Organization [employer] Address 75 [facility] 7t [place] [address] Care Team Providers Care Ampoule Filler And Sealer Name Role Phone Robe Parker PharmD Unavailable [phone] Reason for Visit * Reason Comments Med Refill Encounter Details Date Type Department Care Team ([facility] st Contact Info) Description 09/26/2024 Refill [facility] MEDICINE [address] [place] [address] Sherry Ward MD [address] [place], [place] [phone] Dyslipidemia Social History Tobacco Use Types Packs/Day [...] hyperlipidemia documented in this encounter Care Teams Ampoule Filler And Sealer Relationship Specialty Start Date End Date Robe Parker PharmD [address] [place] [address] Pharmacist Internal Medicine 06/15/23 documented as of this encounter
--- OUTSIDE RECORDS SUMMARY | 2025-07-23 18:01 | XMS_ITS | Encounter Summary ---
Author Organization [employer] Address [address] [facility] 7t [place] [address] Care Team Providers Care Grease Maker Name Role Phone Robe Parker PharmD Unavailable [phone] Reason for Visit * Reason Comments Med Refill Encounter Details Date Type Department Care Team ([facility] st Contact Info) Description 08/05/2024 Refill [facility] MEDICINE [address] [place] [address] Sherry Ward MD [address] [place], [place] [phone] Social History Tobacco Use Types Packs/Day Years [...] on filedocumented in this encounter Care Teams Grease Maker Relationship Specialty Start Date End Date Robe Parker PharmD [address] [place] [address] Pharmacist Internal Medicine 06/15/23 documented as of this encounter
--- OUTSIDE RECORDS SUMMARY | 2025-07-23 18:01 | XMS_ITS | Clinical Summary ---
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 1 kit 3 [...] taking febuxostat 40 mg daily prescribed by marsh buggy operator - continue febuxostat 40 mg daily - [...] fibrilation - medication: warfarin - monitored by [facility] - most recent INR 2.2 on 10/20/23 - continue current treatment plan Assessment & Plan (03/21/2023 11:52 AM EDT): - indication: Atrial fibrilation - medication: warfarin - monitored by [facility] Anticoagulation [facility] - most [...] Assessment & Plan (11/05/2023 4:30 PM EST): -Senior Marketing Specialist: Dr. Roland, last seen in Sep 2023 -Baseline SCr 2.0-2.4; eGFR 27-32, K 4.9-5.4 -Avoid nephrotoxic drugs/substances and behaviors, including NSAIDs use. -Renal dose medications. Assessment & Plan (03/13/2023 1:36 PM EDT): -Senior Marketing Specialist: Dr. Roland, last seen in 12/27/21 -Baseline SCr 2.4-2.8; eGFR 22-26, CrCl 28.5 -Most recent lab: 08/05/22 K 5.2, BUN 46, SCr 2.48; eGFR 26 -Avoid nephrotoxic drugs/substances and behaviors, including NSAIDs use. -Renal dose medications. Assessment & Plan (12/19/2022 1:28 PM EST): -Senior Marketing Specialist: Dr. Roland, last seen in 12/27/21 -Baseline SCr 2.4-2.8; eGFR 22-26, CrCl 28.5 -Most recent lab: 08/05/22 K 5.2, BUN 46, SCr 2.48; eGFR 26 -Avoid nephrotoxic drugs/substances and behaviors, including NSAIDs use. -Renal dose medications. Assessment & Plan (11/07/2022 4:55 AM EST): -Senior Marketing Specialist: Dr. Roland, last seen in 12/27/21 -Baseline SCr 2.4-2.8; eGFR 22-26, CrCl 28.5 -Most recent lab: 08/05/22 K 5.2, BUN 46, SCr 2.48; eGFR 26 -Avoid nephrotoxic drugs/substances and behaviors, including NSAIDs use. -Renal dose medications. Chronic interstitial nephritis 04/02/2021 Proteinuria 04/02/2021 Ischemic heart disease 04/30/2018 Assessment & Plan (11/05/2023 4:06 PM EST): -Absorption And Adsorption Engineer, Dr. Cain, seen in April 2023 -TIA [...] Assessment & Plan (03/13/2023 1:29 PM EDT): -Absorption And Adsorption Engineer, Dr. Cain, seen on 11/10/22 -TIA in January 2018. Dx Afib. Started on Coumadin. -03/14/18 BRITTANY to distal RCA. Completed uninterrupted Plavix and Coumadin therapy for 1 year. Plan was to swithc Plavix to ASA. Pt is not on ASA or Plavix at this time because his CAD is stable per pin machine tender. - Last echo in 12/28/21: Normal LV function, EF 55-60%. slight decrease from last echo. mild GERD reguigitation -Continue current medications Assessment & Plan (12/25/2022 7:27 AM EST): -Absorption And Adsorption Engineer, Dr. Cain, seen on 11/10/22 -TIA in January 2018. Dx Afib. Started on Coumadin. -03/14/18 BRITTANY to distal RCA. Completed uninterrupted Plavix and Coumadin therapy for 1 year. Plan was to swithc Plavix to ASA. Pt is not on ASA or Plavix at this time because his CAD is stable per pin machine tender. - Last echo in 12/28/21: Normal LV function, EF 55-60%. slight decrease from last echo. mild GERD reguigitation -Continue current medications Assessment & Plan (11/07/2022 5:02 AM EST): -Absorption And Adsorption Engineer, Dr. Cain, seen on 05/19/22 -TIA in January 2018. Dx Afib. Started on Coumadin. -03/14/18 BRITTANY to distal RCA. Completed uninterrupted Plavix and Coumadin therapy for 1 year. Plan was to swithc Plavix to ASA. Pt is not on ASA or Plavix at this time because his CAD is stable per pin machine tender. - Last echo in 12/28/21: Normal LV [...] whether he is bradycardia and tachycardia -his pin machine tender recommends rate control rather than rhythm control - Continue rate control with metoprolol tartrate 100 mg bid - Continue digoxin 125 mcg daily - Continue warfarin, which is monitored by [facility] Anticoagulation clinic -- Treatment [...] whether he is bradycardia and tachycardia -his pin machine tender recommends rate control rather than rhythm control - Continue rate control with metoprolol tartrate 100 mg bid - Continue digoxin 125 mcg daily - Continue warfarin, which is monitored by [facility] Anticoagulation clinic -- Treatment [...] wheter he is bradycardiac and tachycardiac -his pin machine tender recommends rate control rather than rhythm control - Continue rate control with metoprolol tartrate 100 mg bid - Continue digoxin 125 mcg daily - Continue warfarin, which is monitored by [facility] Anticoagulation clinic -- Treatment [...] microalbuminuria due to type 2 diabetes mellitus ([facility]) 12/25/2014 Type 2 diabetes mellitus 12/25/2014 Assessment [...] Logan -Pt requests to be referred to [facility] where his son goes Assessment & [...] wheter he is bradycardiac and tachycardiac -his pin machine tender recommends rate control rather than rhythm control [...] decreased -Continue Coumadin, which is monitored by [facility] anticoagulation clinic. -Holter monitor on 04/13/22 showed average HR 61 bpm, sinus. A-fib 36%. -Holter monitor on 09/08/22 showed average HR 101 bpm, baseline A-fib, HR > 100 for 67% period -Pt states he has been taking digoxin. Will confirm it with pin machine tender. Mild intermittent asthma 09/01/201503/2023 Immunizations Immunization Administration Dates Next Due Hep B, adult [...] 76 10/30/2023 2:03 PM EST Temperature 36.8 C (98.2 F) 03/13/2023 1:09 PM EDT Respiratory Rate 12 10/30/2023 2:03 PM EST [...] Vaccine ( season) 2024 11/11/2021, 02/16/2021, 01/19/2021 SDOH Screening 09/09/2024 09/09/2023 Lipid Panel 10/30/2024 10/30/2023, 10/20, 08/05/2022, Additional history exists Tobacco Screening 10/30/2024 10/30/2023 RSV Patients and Patients Aged 60 years or older (1 - 1-dose 75+ series) 2025 Influenza Vaccine (#1) 2025 3, 08/04/2022, 08/16/2021, Additional history exists DTaP/Tdap/Td Vaccines (3 - Td or Tdap) [...] patient's age to complete this topic Meningococcal B Vaccine Aged Out No l onger eligible based on patient's age to complete [...] disease, without long-term current use of insulin ([facility]) HM COLONOSCOPY Routine 04/22/2019 from Last 3 Months or Most Recently Relevant to Health Maintenance Results * (ABNORMAL) Lipid Panel with Reflex to Direct LDL (10/30/2023 2:57 PM EST) Triglycerides 433(H) <150 mg/dL [facility] Comment:Desirable Triglyceri de: less than 150 mg/dLBorderline High Triglyceride 150-199 mg/dLHigh Triglyceride: 200-499 mg/dLVery High Triglyceride: greater than or equal to 5OO mg/dL Cholesterol 266(H) <200 mg/dL [facility] Comment:Desirable Cholestero l: less than 200 mg/dLBorderline High Cholesterol: 200-239 mg/dLHigh Cholesterol: greater than 239 mg/dL LDL Cholesterol Calculated TNP <100 mg/dL [facility] Comment:Unable to calculate the LDL. The formula of Friedwald,Olsen, and Stefanie is only valid if the triglycerides areless than 400 mg/dl. HDL Cholesterol 28(L) >40 mg/dL [facility] Comment:Desirable HDL: great er than 40 mg/dL Note: This HDL assay may give artificially low results in patients with liver disease. Blood 10/30/2023 2:57 PM EST 10/30/2023 3:58 PM EST Sherry Ward MD LAB BLOOD ORDERABLES Final Resul t [facility] [address] [place] [phone] * (ABNORMAL) POCT glycosylated hemoglobin (Hgb A1c) (10/30/2023 2:23 PM EST) Hemoglobin A1C 7.1(A) 4.0 - 6.0 % QC Media Lot # [id number] Lot# Expiration Date Blood Capillary blood specimen / Unknown 10/30/2023 2:23 PM EST Sherry Ward MD POINT OF CARE TEST ENTER/EDIT OR DERABLES Final Result * Colonoscopy (04/22/2019) Colonoscopy Normal Normal us Historical Provider HEALTH MAINTENANCE Final Result from Last 3 Months or Most Recently Relevant to Health Maintenance Insurance [facility] [address] [place] [address] [id number] [place] [address] Care Teams Men'S Designer Relationship Specialty Start Date End Date Robe Parker, IrisD [address] [place] [address] Pharmacist Internal Medicine 06/15/23
--- OUTSIDE RECORDS SUMMARY | 2025-07-23 18:01 | XMS_ITS | Encounter Summary ---
Author Organization [employer] Address 75 [facility] 7t [place] [address] Care Team Providers Care Methodologist Name Role Phone Robe Parker PharmD Unavailable [phone] Reason for Visit * Reason Comments Med Refill Encounter Details Date Type Department Care Team ([facility] st Contact Info) Description 03/08/2024 Refill [facility] MEDICINE [address] [place] [address] Sherry Ward MD [address] [place], [place] [phone] Neuropathic pain Social History Tobacco Use Types [...] pain documented in this encounter Care Teams Methodologist Relationship Specialty Start Date End Date Robe Parker PharmD [address] [place] [address] Pharmacist Internal Medicine 06/15/23 documented as of this encounter
--- OUTSIDE RECORDS SUMMARY | 2025-07-23 18:01 | XMS_ITS | Encounter Summary ---
Author Organization [employer] Address 75 [facility] 7t [place] [address] Care Team Providers Care Intellectual Property Paralegal Name Role Phone Robe Parker PharmD Unavailable [phone] Reason for Visit * Reason Comments Med Refill Encounter Details Date Type Department Care Team ([facility] st Contact Info) Description 01/11/2024 Refill [facility] MEDICINE 230 [place] [address] Jaqui Chowdary MD [address] [place], [place] [phone] Social History Tobacco Use Types Packs/Day Years [...] on filedocumented in this encounter Care Teams Intellectual Property Paralegal Relationship Specialty Start Date End Date Robe Parker PharmD [address] [place] [address] Pharmacist Internal Medicine 06/15/23 documented as of this encounter
--- OUTSIDE RECORDS SUMMARY | 2025-07-23 18:01 | XMS_ITS | Encounter Summary ---
Author Organization [employer] Address 75 [facility] 7t [place] [address] Care Team Providers Care Custom Home Installer Name Role Phone Robe Parker PharmD Unavailable [phone] Reason for Visit * Reason Comments Med Refill Encounter Details Date Type Department Care Team ([facility] st Contact Info) Description 05/07/2024 Refill [facility] MEDICINE [address] [place] [address] Sherry Ward MD [address] [place], [place] [phone] Social History Tobacco Use Types Packs/Day Years [...] on filedocumented in this encounter Care Teams Custom Home Installer Relationship Specialty Start Date End Date Robe Parker PharmD [address] [place] [address] Pharmacist Internal Medicine 06/15/23 documented as of this encounter
--- OUTSIDE RECORDS SUMMARY | 2025-07-23 18:01 | XMS_ITS | Encounter Summary ---
Author Organization [employer] Address 75 [facility] 7t [place] [address] Care Team Providers Care Supervisor Sample Preparation Name Role Phone Robe Parker PharmD Unavailable [phone] Reason for Visit * Reason Comments Med Refill Encounter Details Date Type Department Care Team ([facility] st Contact Info) Description 03/08/2024 Refill [facility] MEDICINE [address] [place] [address] Roopa Unger ANP [address] [place] [address] Social History Tobacco Use Types Packs/Day Years [...] on filedocumented in this encounter Care Teams Supervisor Sample Preparation Relationship Specialty Start Date End Date Robe Parker PharmD [address] [place] [address] Pharmacist Internal Medicine 06/15/23 documented as of this encounter
--- OUTSIDE RECORDS SUMMARY | 2025-07-23 18:01 | XMS_ITS | Encounter Summary ---
Author Organization [employer] Address 75 [facility] 7t [place] [address] Care Team Providers Care Earth Boring Machine Operator Name Role Phone Robe Parker PharmD Unavailable [phone] Reason for Visit * Reason Comments Med Refill Encounter Details Date Type Department Care Team ([facility] st Contact Info) Description 03/11/2024 Refill [facility] MEDICINE [address] [place] [address] Sherry Ward MD [address] [place], [place] [phone] Neuropathic pain Social History Tobacco Use Types [...] pain documented in this encounter Care Teams Earth Boring Machine Operator Relationship Specialty Start Date End Date Robe Parker PharmD [address] [place] [address] Pharmacist Internal Medicine 06/15/23 documented as of this encounter
[2025-07-23 19:06] VITALS: BP 164/107; PULSE 107; RESP 18; TEMP 36.5; O2SAT 97
== END 2025-07-23 19:08 | disposition home or self-care (01) ==
PROVIDERS: Physician Assistant Medical; Emergency Provider Emergency Medicine; PCP Physician Assistant
DX: R14.0 Abdominal distension (gaseous) (principal); I48.0 Paroxysmal atrial fibrillation; Z79.01 Long term (current) use of anticoagulants; N18.30 Chronic kidney disease, stage 3 unspecified; I10 Essential (primary) hypertension; H54.40 Blindness, one eye, unspecified eye; Z79.899 Other long term (current) drug therapy
CPT/HCPCS: 36415; 71046; 80053; 83735; 83880; 84484; 85025; 93005; 99283

== ENCOUNTER → 2025-07-23 14:04 | Outpatient (BNV) | payer OTHER, SELFPAY | PROVIDERS: PCP Physician Assistant; Visit Provider Radiology Diagnostic Radiology | DX: R06.00 Dyspnea, unspecified (principal) | CPT/HCPCS: 71046 ==

== ENCOUNTER → 2025-07-23 14:04 | Outpatient (BNV) | payer OTHER, SELFPAY | PROVIDERS: Emergency Provider Emergency Medicine; PCP Physician Assistant; Visit Provider Internal Medicine Cardiovascular Disease | DX: I48.91 Unspecified atrial fibrillation (principal) | CPT/HCPCS: 93010 ==

== ENCOUNTER 2025-08-05 14:28 | Outpatient (REF) | payer OTHER, SELFPAY ==
[2025-08-05 15:07] LABS: Hematocrit 33.4 % (42.0-52.0); Hemoglobin 10.3 g/dl (14.0-18.0); Mean Corpuscular HGB Conc 30.8 g/dl (31.0-36.0); Mean Corpuscular Hemoglobin 27.0 pg (27.0-33.0); Mean Corpuscular Volume 87.4 fL (80.0-98.0); NRBC Abs Auto 0.000 X10*3/uL (0.0-0.012); NRBC Pct Auto 0.0 /100WBC (0.0-0.2); Platelet Count 192 X10*3/uL (160-400); Red Blood Count 3.82 X10*6/uL (4.60-5.80); White Blood Count 7.4 X10*3/uL (4.8-10.8)
[2025-08-05 15:35] LABS: Appearance Urine Clear; Glucose Urine UA Negative (Negative); PH 6.5 (5.0-9.0); Specific Gravity - Urine 1.010 (1.005-1.025); UMIC TRIGGER UA YES
[2025-08-05 15:42] LABS: Anion Gap 12 (12-20); Blood Urea Nitrogen 83 mg/dL (9-16); Calcium 9.1 mg/dL (8.4-10.2); Carbon Dioxide 25 mmol/L (22-29); Chloride 113 mmol/L (96-108); Estimated Glomerular Filt Rate 10; Potassium 5.4 mmol/L (3.3-5.1); Sodium 145 mmol/L (135-145)
[2025-08-05 15:44] LABS: Parathyroid Hormone Intact 396.6 pg/mL (8.7-77.1)
--- OUTSIDE RECORDS SUMMARY | 2025-08-05 18:14 | XMS_ITS | Encounter Summary ---
Author Organization [employer] Address [address] [place] [address] [address]t [place] [address] Care Team Providers Care Manager Harbor Name Role Phone Sherry Ward MD Primary Care Provider [phone] Robe Parker PharmD Unavailable [phone] Encounter Details Date Type Department Care Team (Late st Contact Info) Description 01/23/2023 Orders Only [facility] MEDICINE [address] [place] [phone] Nivia Serrato MD [address] [place], [place] [phone] Hyperkalemia (Primary Dx) Social History Tobacco Use [...] Hyperpotassemia documented in this encounter Care Teams Manager Harbor Relationship Specialty Start Date End Date Sherry Ward MD [address] [place] [address] [phone] PCP - General Family Medicine 11/20/18 12/17/23 Robe Parker, PharmD [address] [place] [address] Pharmacist Internal Medicine 06/15/23 documented as of this encounter
--- OUTSIDE RECORDS SUMMARY | 2025-08-05 18:14 | XMS_ITS | Encounter Summary ---
Author Organization [employer] Address [address] [place] [address] 7t [place] [address] Care Team Providers Care Tool And Fixture Repairer Name Role Phone Sherry Ward MD Primary Care Provider [phone] Robe Parker PharmD Unavailable [phone] Reason for Referral * Imaging (Routine) - Closed Specialty Diagnoses / Procedures Referred By Contac t Referred To Contact Diagnoses Vertigo Ischemic heart disease Chronic atrial fibrillation (CMS/HCC) Essential hypertension Procedures Mr Brain w/ and w/o Contrast Sherry Ward MD [address] [place] [address] Phone: tel: fax: [facility] MRI and CT Scan [address] [place], [place] Phone: tel: fax: Referral ID Status Reason Start Date Expiration Date Visits Re quested Visits Authorized [id number] Closed 11/17/2022 11/17/2023 1 1 Encounter Details Date Type Department Care Team (Late st Contact Info) Description 11/08/2022 Orders Only [facility] MEDICINE [address] [place], [place] [phone] Sherry Ward MD [address] [place], [place] [phone] Vertigo (Primary Dx); Ischemic heart disease; Chronic [...] hypertension documented in this encounter Care Teams Tool And Fixture Repairer Relationship Specialty Start Date End Date Sherry Ward MD [address] [place] [address] PCP - General Family Medicine 11/20/18 12/17/23 Robe Parker, Gabby [address] [place] [address] Pharmacist Internal Medicine 06/15/23 documented as of this encounter
--- OUTSIDE RECORDS SUMMARY | 2025-08-05 18:14 | XMS_ITS | Patient Health Record ---
Author Organization [facility] Address [address] [place] [address] Care Team Providers Care Stock Dealer Name Role Phone Joycelyn Brothers M.D. 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 [address] [place] [address] [id number] SEMAJ PATTERSON Self - patient is the insured Medical (General) History Medical History History ICD Code Kidney disease-followed by Dr. Tae johansen HTN Denies [place],CVA,Lung disease Hyperlipidemia Rx'd for H.pylori in 06/2012 [...]
--- OUTSIDE RECORDS SUMMARY | 2025-08-05 18:14 | XMS_ITS | Encounter Summary ---
Author Organization [employer] Address 75 [facility] 7t [place] [address] Care Team Providers Care Economic Adviser Name Role Phone Robe Parker PharmD Unavailable [phone] Reason for Visit * Reason Comments Med Refill Encounter Details Date Type Department Care Team ([facility] st Contact Info) Description 03/11/2024 Refill [facility] [address] [place] [address] Sherry Ward MD [address] [place], [place] [phone] Neuropathic pain Social History Tobacco Use Types [...] pain documented in this encounter Care Teams Economic Adviser Relationship Specialty Start Date End Date Robe Parker PharmD [address] [place] [address] Pharmacist Internal Medicine 06/15/23 documented as of this encounter
--- OUTSIDE RECORDS SUMMARY | 2025-08-05 18:14 | XMS_ITS | Clinical Summary ---
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 1 [...] taking febuxostat 40 mg daily prescribed by c software developer - continue febuxostat 40 mg [...] fibrilation - medication: warfarin - monitored by [facility] Anticoagulation Clinic - most recent INR 2.2 on 10/20/23 - continue current treatment plan Assessment & Plan (03/21/2023 11:52 AM EDT): - indication: Atrial fibrilation - medication: warfarin - monitored by [facility] Anticoagulation Clinic - most recent INR 1.6 [...] Assessment & Plan (11/05/2023 4:30 PM EST): -Clam Dredge Boat Captain: Dr. Roland, last seen in Sep 2023 -Baseline SCr 2.0-2.4; eGFR 27-32, K 4.9-5.4 -Avoid nephrotoxic drugs/substances and behaviors, including NSAIDs use. -Renal dose medications. Assessment & Plan (03/13/2023 1:36 PM EDT): -Clam Dredge Boat Captain: Dr. Roland, last seen in 12/27/21 -Baseline SCr 2.4-2.8; eGFR 22-26, CrCl 28.5 -Most recent lab: 08/05/22 K 5.2, BUN 46, SCr 2.48; eGFR 26 -Avoid nephrotoxic drugs/substances and behaviors, including NSAIDs use. -Renal dose medications. Assessment & Plan (12/19/2022 1:28 PM EST): -Clam Dredge Boat Captain: Dr. Roland, last seen in 12/27/21 -Baseline SCr 2.4-2.8; eGFR 22-26, CrCl 28.5 -Most recent lab: 08/05/22 K 5.2, BUN 46, SCr 2.48; eGFR 26 -Avoid nephrotoxic drugs/substances and behaviors, including NSAIDs use. -Renal dose medications. Assessment & Plan (11/07/2022 4:55 AM EST): -Clam Dredge Boat Captain: Dr. Roland, last seen in 12/27/21 -Baseline SCr 2.4-2.8; eGFR 22-26, CrCl 28.5 -Most recent lab: 08/05/22 K 5.2, BUN 46, SCr 2.48; eGFR 26 -Avoid nephrotoxic drugs/substances and behaviors, including NSAIDs use. -Renal dose medications. Chronic interstitial nephritis 04/02/2021 Proteinuria 04/02/2021 Ischemic heart disease 04/30/2018 Assessment & Plan (11/05/2023 4:06 PM EST): -Patch Driller, Dr. Cain, seen in April 2023 -TIA [...] Assessment & Plan (03/13/2023 1:29 PM EDT): -Patch Driller, Dr. Cain, seen on 11/10/22 -TIA in January 2018. Dx Afib. Started on Coumadin. -03/14/18 BRITTANY to distal RCA. Completed uninterrupted Plavix and Coumadin therapy for 1 year. Plan was to swithc Plavix to ASA. Pt is not on ASA or Plavix at this time because his CAD is stable per social work program coordinator. - Last echo in 12/28/21: Normal LV function, EF 55-60%. slight decrease from last echo. mild GERD reguigitation -Continue current medications Assessment & Plan (12/25/2022 7:27 AM EST): -Patch Driller, Dr. Cain, seen on 11/10/22 -TIA in January 2018. Dx Afib. Started on Coumadin. -03/14/18 BRITTANY to distal RCA. Completed uninterrupted Plavix and Coumadin therapy for 1 year. Plan was to swithc Plavix to ASA. Pt is not on ASA or Plavix at this time because his CAD is stable per social work program coordinator. - Last echo in 12/28/21: Normal LV function, EF 55-60%. slight decrease from last echo. mild GERD reguigitation -Continue current medications Assessment & Plan (11/07/2022 5:02 AM EST): -Patch Driller, Dr. Cain, seen on 05/19/22 -TIA in January 2018. Dx Afib. Started on Coumadin. -03/14/18 BRITTANY to distal RCA. Completed uninterrupted Plavix and Coumadin therapy for 1 year. Plan was to swithc Plavix to ASA. Pt is not on ASA or Plavix at this time because his CAD is stable per social work program coordinator. - Last echo in 12/28/21: Normal LV [...] whether he is bradycardia and tachycardia -his social work program coordinator recommends rate control rather than rhythm control - Continue rate control with metoprolol tartrate 100 mg bid - Continue digoxin 125 mcg daily - Continue warfarin, which is monitored by [facility] Anticoagulation clinic -- Treatment Hx: --Previously on [...] whether he is bradycardia and tachycardia -his social work program coordinator recommends rate control rather than rhythm control - Continue rate control with metoprolol tartrate 100 mg bid - Continue digoxin 125 mcg daily - Continue warfarin, which is monitored by [facility] Anticoagulation clinic -- Treatment Hx: --Previously on [...] wheter he is bradycardiac and tachycardiac -his social work program coordinator recommends rate control rather than rhythm control - Continue rate control with metoprolol tartrate 100 mg bid - Continue digoxin 125 mcg daily - Continue warfarin, which is monitored by [facility] Anticoagulation clinic -- Treatment Hx: --Previously on [...] microalbuminuria due to type 2 diabetes mellitus ([facility]) 12/25/2014 Type 2 diabetes mellitus [...] Logan -Pt requests to be referred to [facility] GI where his son goes Assessment & [...] wheter he is bradycardiac and tachycardiac -his social work program coordinator recommends rate control rather than rhythm control [...] decreased -Continue Coumadin, which is monitored by [facility] anticoagulation clinic. -Holter monitor on 04/13/22 showed average HR 61 bpm, sinus. A-fib 36%. -Holter monitor on 09/08/22 showed average HR 101 bpm, baseline A-fib, HR > 100 for 67% period -Pt states he has been taking digoxin. Will confirm it with social work program coordinator. Mild intermittent asthma 09/01/201503/2023 Immunizations Immunization Administration [...] Colonoscopy 04/22/2024 04/22/2019 Colorectal Cancer Screening 04/22/2024 SDOH Screening 09/09/2024 09/09/2023 Lipid Panel 10/30/2024 10/30/2023, 10/20, 08/05/2022, Additional history exists Tobacco Screening 10/30/2024 10/30/2023 RSV Patients and Patients Aged 60 years or older (1 - 1-dose 75+ series) 2025 COVID-19 Vaccine (4 - 2024- season) 2025 11/11/2021, 02/16/2021, 01/19/2021 Influenza Vaccine (#1) 2025 3, 08/04/2022, 08/16/2021, [...] disease, without long-term current use of insulin ([facility]) HM COLONOSCOPY Routine 04/22/2019 from Last 3 Months or Most Recently Relevant to Health Maintenance Results * (ABNORMAL) Lipid Panel with Reflex to Direct LDL (10/30/2023 2:57 PM EST) Triglycerides 433(H) <150 mg/dL [facility] Comment:Desirable Triglyceri de: less than 150 mg/dLBorderline High Triglyceride 150-199 mg/dLHigh Triglyceride: 200-499 mg/dLVery High Triglyceride: greater than or equal to 5OO mg/dL Cholesterol 266(H) <200 mg/dL [facility] Comment:Desirable Cholestero l: less than 200 mg/dLBorderline High Cholesterol: 200-239 mg/dLHigh Cholesterol: greater than 239 mg/dL LDL Cholesterol Calculated TNP <100 mg/dL [facility] Comment:Unable to calculate the LDL. The formula of Friedwald,Olsen, and Stefanie is only valid if the triglycerides areless than 400 mg/dl. HDL Cholesterol 28(L) >40 mg/dL [facility] Comment:Desirable HDL: great er than 40 mg/dL Note: This HDL assay may give artificially low results in patients with liver disease. Blood 10/30/2023 2:57 PM EST 10/30/2023 3:58 PM EST Sherry Ward MD LAB BLOOD ORDERABLES Final Resul t [facility] [address] [place] [phone] * (ABNORMAL) POCT glycosylated hemoglobin (Hgb [...] Most Recently Relevant to Health Maintenance Insurance [facility] STANDARD [address] [place] [id number] [place] [phone] Care Teams Superannuation Clerk Relationship Specialty Start Date End Date Robe Parker, IrisD [address] [place] [address] Pharmacist Internal Medicine 06/15/23
--- OUTSIDE RECORDS SUMMARY | 2025-08-05 18:14 | XMS_ITS | Encounter Summary ---
Author Organization [employer] Address 75 [facility] 7t [place] [address] Care Team Providers Care Armorer Technician Name Role Phone Robe Parker PharmD Unavailable [phone] Reason for Visit * Reason Comments Med Refill Encounter Details Date Type Department Care Team ([facility] st Contact Info) Description 01/11/2024 Refill [facility] [address] [place] [address] Jaqui Chowdary MD [address] [place], [place] [phone] Social History Tobacco Use Types Packs/Day Years [...] on filedocumented in this encounter Care Teams Armorer Technician Relationship Specialty Start Date End Date Robe Parker PharmD [address] [place] [address] Pharmacist Internal Medicine 06/15/23 documented as of this encounter
--- OUTSIDE RECORDS SUMMARY | 2025-08-05 18:14 | XMS_ITS | Encounter Summary ---
Author Organization [employer] Address [address] [facility] 7t [place] [address] Care Team Providers Care Roller Operator Name Role Phone Sherry Ward MD Primary Care Provider [phone] Robe Parker PharmD Unavailable [phone] Encounter Details Date Type Department Care Team (Late st Contact Info) Description 11/04/2022 Orders Only [facility] [address] [place] [address] Sharon Ko, RN Social History Tobacco Use [...] on filedocumented in this encounter Care Teams Roller Operator Relationship Specialty Start Date End Date Sherry Ward MD [address] [place] [address] PCP - General Family Medicine 11/20/18 12/17/23 Robe Parker, IrisD [address] [place] [address] Pharmacist Internal Medicine 06/15/23 documented as of this encounter
--- OUTSIDE RECORDS SUMMARY | 2025-08-05 18:14 | XMS_ITS | Encounter Summary ---
Author Organization [facility] Address [address] [facility] [address] [place] [address] Phone Care Team Providers Care Clipman Name Role Phone Joycelyn Brothers DO Primary Care Provider Ema ilva Encounter Details Date Type Department Care Team (Late st Contact Info) Description 05/29/2021 Orders Only [facility] [address] [place] [phone] Alex Garcia MD Chronic kidney disease stage [...] (HCC) documented in this encounter Care Teams Clipman Relationship Specialty Start Date End Date Joycelyn Brothers DO PCP - General 11/30/20 documented as of this encounter
--- OUTSIDE RECORDS SUMMARY | 2025-08-05 18:14 | XMS_ITS | Encounter Summary ---
Author Organization [facility] Address [address] [place] [address] Phone Care Team Providers Care Electrical Instrument Maker Name Role Phone Joycelyn Brothers DO Primary Care Provider Unava ilable Encounter Details Date Type Department Care Team (Late st Contact Info) Description 11/08/2022 Telephone [facility] [address] [place] [address] Alex Garcia MD Social History [...] She also wants to add that his icu nurse started him on digoxin 0.1 mg daily. Please advise Thank you CB# [phone] documented in this encounter Plan of Treatment Not on file documented as of this encounter Visit Diagnoses Not on filedocumented in this encounter Care Teams Electrical Instrument Maker Relationship Specialty Start Date End Date Joycelyn Brothers DO PCP - General 11/30/20 documented as of this encounter
--- OUTSIDE RECORDS SUMMARY | 2025-08-05 18:14 | XMS_ITS | Clinical Summary ---
Author Organization [facility] Address [address] [facility] [address] [place] [address] Phone Care Team Providers Care Report Checker Name Role Phone Joycelyn Brothers DO Primary [...] adenomatous polyp of colon 01/26/2024 Tinnitus 03/21/2023 shelter current use of anticoagulant Overview (01/26/2024): Last Assessment & Plan: - indication: Atrial fibrilation - medication: warfarin - monitored by [facility] Anticoagulation Clinic - most recent INR 1.6 [...] 04/02/2021 Overview (01/26/2024): Last Assessment & Plan: -Camp Advisor: Dr. Roland, last seen in 12/27/21 -Baseline SCr 2.4-2.8; eGFR 22-26, CrCl 28.5 -Most recent lab: 08/05/22 K 5.2, BUN 46, SCr 2.48; eGFR 26 -Avoid nephrotoxic drugs/substances and behaviors, including NSAIDs use. -Renal dose medications. Tinea pedis 04/30/2018 Ischemic heart disease 04/30/2018 Overview (01/26/2024): Last Assessment & Plan: -Entry Level Paralegal, Dr. Cain, seen on 11/10/22 -TIA in January 2018. Dx Afib. Started on Coumadin. -03/14/18 BRITTANY to distal RCA. Completed uninterrupted Plavix and Coumadin therapy for 1 year. Plan was to swithc Plavix to ASA. Pt is not on ASA or Plavix at this time because his CAD is stable per heating unit mechanic. - Last echo in 12/28/21: Normal LV function, EF 55-60%. slight decrease from last echo. mild GERD reguigitation -Continue current medications History of placement of stent for coronary arter y disease 04/30/2018 Chronic atrial fibrillation 02/09/2018 Overview (01/26/2024): Last Assessment & Plan: A-fib today, rate controlled. pt is usually asymptomatic whether he is bradycardia and tachycardia -his heating unit mechanic recommends rate control rather than rhythm control - Continue rate control with metoprolol tartrate 100 mg bid - Continue digoxin 125 mcg daily - Continue warfarin, which is monitored by [facility] Anticoagulation clinic -- Treatment Hx: --Previously on [...] Years) Discontinued 03/21/2016, 06/18/2015, 04/14/2010 Insurance [address] [place] [phone] [employer] ([id number]) [address] [place] [phone] [facility] KSKT ([id number]) Care Teams Report Checker Relationship Specialty Start Date End Date Joycelyn Brothers DO PCP - General 11/30/20
--- OUTSIDE RECORDS SUMMARY | 2025-08-05 18:14 | XMS_ITS | Encounter Summary ---
Author Organization [employer] Address 75 [facility] 7t [place] [address] Care Team Providers Care Port Patrol Officer Name Role Phone Robe Parker PharmD Unavailable [phone] Reason for Visit * Reason Comments Med Refill Encounter Details Date Type Department Care Team ([facility] st Contact Info) Description 09/26/2024 Refill [facility] [address] [place] [address] Sherry Ward MD [address] [place], [place] [phone] Dyslipidemia Social History Tobacco Use Types Packs/Day [...] hyperlipidemia documented in this encounter Care Teams Port Patrol Officer Relationship Specialty Start Date End Date Robe Parker PharmD [address] [place] [address] Pharmacist Internal Medicine 06/15/23 documented as of this encounter
--- OUTSIDE RECORDS SUMMARY | 2025-08-05 18:14 | XMS_ITS | Encounter Summary ---
Author Organization [employer] Address [address] [facility] 7t [place] [address] Care Team Providers Care Geothermal Powerplant Supervisor Name Role Phone Sherry Ward MD Primary Care Provider [phone] Robe Parker PharmD Unavailable [phone] Encounter Details Date Type Department Care Team (Late st Contact Info) Description 11/02/2023 Orders Only [facility] [address] [place], [place] [phone] Sherry Ward MD [address] [place], [place] [phone] Social History Tobacco Use Types Packs/Day Years [...] on filedocumented in this encounter Care Teams Geothermal Powerplant Supervisor Relationship Specialty Start Date End Date Sherry Ward MD [address] [place] [address] PCP - General Family Medicine 11/20/18 12/17/23 Robe Parker, PharmD [address] [place] [address] Pharmacist Internal Medicine 06/15/23 documented as of this encounter
--- OUTSIDE RECORDS SUMMARY | 2025-08-05 18:14 | XMS_ITS | Encounter Summary ---
Author Organization [employer] Address [address] [facility] 7t [place] [address] Care Team Providers Care Mechanical Development Engineer Name Role Phone Robe Parker PharmD Unavailable [phone] Reason for Visit * Reason Comments Med Refill Encounter Details Date Type Department Care Team ([facility] st Contact Info) Description 05/07/2024 Refill [facility] [address] [place] [address] Sherry Ward MD [address] [place], [place] [phone] Social History Tobacco Use Types Packs/Day Years [...] on filedocumented in this encounter Care Teams Mechanical Development Engineer Relationship Specialty Start Date End Date Robe Parker PharmD [address] [place] [address] Pharmacist Internal Medicine 06/15/23 documented as of this encounter
--- OUTSIDE RECORDS SUMMARY | 2025-08-05 18:14 | XMS_ITS | Encounter Summary ---
Author Organization [employer] Address [address] [facility] 7t [place] [address] Care Team Providers Care Traffic Personnel Supervisor Name Role Phone Sherry Ward MD Primary Care Provider [phone] Robe Parker PharmD Unavailable Reason for Visit * Reason Onset Date Comments triage 11/25/2022 Encounter Details Date Type Department Care Team ([facility] st Contact Info) Description 11/25/2022 Telephone [facility] [address] [place], [place] [phone] Sherry Ward MD 230 [place], [place] [phone] triage Social History Tobacco Use Types Packs/Day [...] 11/25/2022 4:06 PM EST Triage call with [facility] [employer] Consultant ID [id number] Pt reports son came over this morning to test with home test. Pt isn't sure if it is positive and is requesting medication. Pt reports has had Covid before . Pt is unable to come to [facility] today for further testing. Pt [...] on filedocumented in this encounter Care Teams Traffic Personnel Supervisor Relationship Specialty Start Date End Date Sherry Ward MD [address] [place] [address] PCP - General Family Medicine 11/20/18 12/17/23 Robe Parker, IrisD [address] [place] [address] Pharmacist Internal Medicine 06/15/23 documented as of this encounter
--- OUTSIDE RECORDS SUMMARY | 2025-08-05 18:14 | XMS_ITS | Encounter Summary ---
Author Organization [employer] Address 75 [facility] 7t [place] [address] Care Team Providers Care Configurator Name Role Phone Robe Parker PharmD Unavailable [phone] Reason for Visit * Reason Comments Med Refill Encounter Details Date Type Department Care Team ([facility] st Contact Info) Description 08/05/2024 Refill [facility] 230 [place] [address] Sherry Ward MD [address] [place], [place] [phone] Social History Tobacco Use Types Packs/Day Years [...] on filedocumented in this encounter Care Teams Configurator Relationship Specialty Start Date End Date Robe Parker PharmD [address] [place] [address] Pharmacist Internal Medicine 06/15/23 documented as of this encounter
--- OUTSIDE RECORDS SUMMARY | 2025-08-05 18:14 | XMS_ITS | Encounter Summary ---
Author Organization [employer] Address 75 [facility] 7t [place] [address] Care Team Providers Care Tangled Yarn Worker Name Role Phone Robe Parker PharmD Unavailable Reason for Visit * Reason Comments Med Refill Encounter Details Date Type Department Care Team ([facility] st Contact Info) Description 03/08/2024 Refill [facility] [address] [place] [address] Roopa Unger ANP 230 [place] [address] Social History Tobacco Use Types Packs/Day Years [...] on filedocumented in this encounter Care Teams Tangled Yarn Worker Relationship Specialty Start Date End Date Robe Parker PharmD [address] [place] [address] Pharmacist Internal Medicine 06/15/23 documented as of this encounter
--- OUTSIDE RECORDS SUMMARY | 2025-08-05 18:14 | XMS_ITS | Encounter Summary ---
Author Organization [employer] Address 75 [facility] 7t [place] [address] Care Team Providers Care Healthcare Marketer Name Role Phone Robe Parker PharmD Unavailable [phone] Reason for Visit * Reason Comments Med Refill Encounter Details Date Type Department Care Team ([facility] st Contact Info) Description 03/08/2024 Refill [facility] [address] [place] [address] Sherry Ward MD [address] [place], [place] [phone] Neuropathic pain Social History Tobacco Use Types [...] pain documented in this encounter Care Teams Healthcare Marketer Relationship Specialty Start Date End Date Robe Parker PharmD [address] [place] [address] Pharmacist Internal Medicine 06/15/23 documented as of this encounter
--- OUTSIDE RECORDS SUMMARY | 2025-08-05 18:14 | XMS_ITS | Encounter Summary ---
Author Organization [employer] Address [address] [facility] 7t [place] [address] Care Team Providers Care Ink Grinder Name Role Phone Sherry Ward MD Primary Care Provider [phone] Robe Parker PharmD Unavailable [phone] Encounter Details Date Type Department Care Team (Late st Contact Info) Description 11/02/2023 Orders Only [facility] MED[facility] [address] [place], [place] [phone] Sherry Ward MD [address] [place], [place] [phone] Left foot pain (Primary Dx) Social History [...] limb documented in this encounter Care Teams Ink Grinder Relationship Specialty Start Date End Date Sherry Ward MD [address] [place] [address] PCP - General Family Medicine 11/20/18 12/17/23 Robe Parker, PharmD [address] [place] [address] Pharmacist Internal Medicine 06/15/23 documented as of this encounter
== END 2025-08-05 14:29 | disposition home or self-care (01) ==
LOC: HO.LAB 14:28
PROVIDERS: PCP Physician Assistant; Visit Provider Internal Medicine Hypertension Specialist
DX: N18.5 Chronic kidney disease, stage 5 (principal); R60.0 Localized edema
CPT/HCPCS: 36415; 80048; 81001; 83970; 84100; 85027; 85610; 99211

== ENCOUNTER 2025-08-05 14:36 | Outpatient (AMB) | payer OTHER, SELFPAY ==
[2025-08-05 15:12] LABS: Prothrombin Time Whole Bld POC 47.0 sec (11.1-13.5); ~PT, ~INR - Anti Coag Clinic 3.9 (0.9-1.1)
--- NOTE | 2025-08-05 15:12 | MHC.OFFVISCO ---
Intake Intake Visit Reasons: Anticoagulation Allergies lisinopril (LISINOPRIL) Allergy (Severe, Verified 08/05/25 15:01) ACUTE KIDNEY INJURY oxycodone (Percocet) Allergy (Intermediate, Verified 08/05/25 15:01) agitation codeine (CODEINE) Allergy (Unknown, Verified 08/05/25 15:01) AGITATION morphine (MORPHINE) Allergy (Unknown, Verified 08/05/25 15:01) AGITATION, confusion dicyclomine (From A-Spas (dicyclomine)) Adverse Reaction (Intermediate, Verified 08/05/25 15:05) Confusion From PERCOCET Allergy (Unknown, Uncoded 08/05/25 15:01) AGITATION Medication List - Last Reconciled 08/05/25 by Lisa White RN amlodipine 5 mg PO DAILY 90 days atorvastatin 80 mg PO QAM cholecalciferol (vitamin D3) 25 mcg PO DAILY compression socks, large As directed dicyclomine 20 mg PO TID PRN febuxostat (Uloric) 40 mg PO DAILY fluticasone propionate 50 mcg/actuation 1 spray intranasal DAILY 30 days furosemide 40 mg PO QAM gabapentin 200 mg (2 x 100 mg) PO BEDTIME 30 days hydroxyzine HCl 25 mg PO BEDTIME 30 days meclizine 25 mg PO TID PRN 30 days metoprolol tartrate 50 mg See Protocol PO BID 90 days sodium zirconium cyclosilicate (Lokelma) 10 grams orally Every Monday and ; warfarin 7.5 mg See Protocol PO MO warfarin 5 mg See Protocol PO SUTUWETHFRSA Nursing Note INR 3.9-?? out of therapeutic range 2-3 Medications and supplements reviewed Patient status: pt to ed recently for gas, pt feels like he has the flu, taking flu med Medications or supplements: dicyclomine- no interaction with warfarin, not taking- causes confusion, hydroxyzine- no interaction with warfarin, not taking/drowsy Diet: fair Denies any signs and symptoms of bleeding or clotting or unusual bruising Bleeding, bruising, clotting discussed Nutritional guidance given: eat greens to lower, no reds for 2-3 days Dose: no warfarin today, then 5mg x 6, 7.5mg x 1 F/U INR Date : 1 week? Patient verbalizing understanding of instructions given. pt here for labs, acompanied by son. montemayor acs visit today Anti-Coag Initial Assessment Social Hx Patient Tobacco Use Status: Former Tobacco user Tobacco use type: Cigarette alcohol intake: former Alcohol intake frequency: does not drink Coding Level of Care Code Est Patient Level 1 Diagnoses Current use of anticoagulant therapy Z79.01 Assessment & Plan Assessment & Plan (1) Current use of anticoagulant therapy: Code(s): Z79.01 - senior living (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
== END 2025-08-05 15:25 | disposition home or self-care (01) ==
LOC: HO.ACS 14:36
PROVIDERS: PCP Physician Assistant; Visit Provider Internal Medicine Medical Oncology
DX: Z79.01 Long term (current) use of anticoagulants (principal)

== ENCOUNTER 2025-08-07 13:33 | Outpatient (AMB) | payer OTHER, SELFPAY ==
[2025-08-07 13:53] VITALS: BP 148/100; PULSE 117; O2SAT 97; BMI 29.0
--- NOTE | 2025-08-07 13:53 | HO.NEPHOV ---
Vital Signs 08/07/25 13:53 08/07/25 14:04 Height 5 ft 6 in Weight 180 lb BMI 29.0 BP 148/100 H 140/90 H Blood Pressure Location Lt brachial Rt brachial Position Sitting Pulse 117 H Pulse Source Pulse Oximeter Pulse Oximetry (%) 97 Oxygen Delivery Method Room Air Intake Visit Reasons: FU-Conf Burn Table Operator Required: No Accompanied by: Son Allergies lisinopril (LISINOPRIL) Allergy (Severe, Verified 08/07/25 13:54) ACUTE KIDNEY INJURY oxycodone (Percocet) Allergy (Intermediate, Verified 08/07/25 13:54) agitation codeine (CODEINE) Allergy (Unknown, Verified 08/07/25 13:54) AGITATION morphine (MORPHINE) Allergy (Unknown, Verified 08/07/25 13:54) AGITATION, confusion dicyclomine (From A-Spas (dicyclomine)) Adverse Reaction (Intermediate, Verified 08/07/25 13:54) Confusion From PERCOCET Allergy (Unknown, Uncoded 08/05/25 15:01) AGITATION Medication List - Last Reconciled 08/07/25 by Alex Garcia MD amlodipine 5 mg PO DAILY 90 days atorvastatin 80 mg PO QAM cholecalciferol (vitamin D3) 25 mcg PO DAILY compression socks, large As directed dicyclomine 20 mg PO TID PRN febuxostat (Uloric) 40 mg PO DAILY fluticasone propionate 50 mcg/actuation 1 spray intranasal DAILY 30 days furosemide 40 mg PO QAM gabapentin 200 mg (2 x 100 mg) PO BEDTIME 30 days hydroxyzine HCl 25 mg PO BEDTIME 30 days meclizine 25 mg PO TID PRN 30 days metoprolol tartrate 50 mg See Protocol PO BID 90 days sodium zirconium cyclosilicate (Lokelma) 10 grams orally Every Monday and ; warfarin 7.5 mg See Protocol PO MO warfarin 5 mg See Protocol PO SUTUWETHFRSA HPI Comments Details: Elderly man with 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 He is here for regular follow-up. Accompanied by son. History of gout he was treated with a course of prednisone. He took Uloric for a month and stopped it REcently returned from [place] Ate plenty of Papaya and fruits/Nuts 06/10/24 ;ON Uloric; Gout under control ;Off LAsix ;still has foot pain - mostly in heel 10/14/24 In mid August he had preparation for colonoscopy. He had significant diarrhea. Colonoscopy was canceled. REcently hospitalized ;Had GONZALO with fluid overload ;REsponded to IV diuretics ;Wt down to 184 ;No dyspnea ;NO nausea or vomiting 12/24/24 ;Feels better. No new issues ;Gained weight ;Accompanied by son 04/28/25 75-year-old male presenting with chronic disease management, chiefly concerning Chronic Interstitial Nephritis. Previously identified through biopsy, the patient has been treated with prednisone. His current lab tests show stable renal function, consistent at 13%, improved from an 8% reading. This stability rosas a positive trend in his condition. The patient notes recent chills over the past two days but reports no fever. He denies any urinary complications, emphasizing active urination. Nutrition management remains a tamayo focus, with emphasis on monitoring potassium and salt intake; maintaining potassium at levels below 5.2 mmol/L. Currently, the patient is responding well to dietary recommendations, continuing the use of prescribed potassium-lowering powder to aid in maintaining these levels. 08/07/25 The patient is a 75-year-old male presenting with a follow-up regarding advanced kidney disease. Gastrointestinal discomfort has been present for a couple of weeks, leading to an emergency room visit. Medications were ineffective, and names are unknown. Appetite is decreased, with increased daytime sleep. No nausea or vomiting is reported. Peripheral edema began after dicyclomine use, which was discontinued. Kidney function is at 10%, down from 13%. Potassium is elevated at 5.7 mmol/L, with powder increased to three times weekly. Diarrhea occurs with powder use. Gabapentin and hydroxyzine are taken for sleep, with amlodipine increased for hypertension. Medications: - Gabapentin at night for neuropathic pain - Hydroxyzine for sleep - Amlodipine 5 mg for hypertension Diagnostic Results: - Kidney function at 10%, previously 13% - Potassium level at 5.7 mmol/L [facility] Medical History (Updated 07/23/25 @ 17:10 by Jared Esqueda DO) HTN (hypertension) Allergies Sinus bradycardia Pre-op examination Annual physical exam History of TIA (transient ischemic attack) Gout Personal history of nicotine dependence Chronic kidney disease, stage 3 unspecified Benign prostatic hyperplasia with lower urinary tract symptoms CAD (coronary artery disease) Paroxysmal atrial fibrillation Surgical History Stented coronary artery Hx of colonoscopy Hx of cardiac cath Hx of cystoscopy History of esophagogastroduodenoscopy (EGD) Hx of cataract extraction Family History Mother CAD (coronary artery disease) Diabetes HTN (hypertension) Father CAD (coronary artery disease) Diabetes HTN (hypertension) Social History Household Members: None Housing: Apartment Do you presently have visiting nurse or other home services: No Alcohol intake: former Patient Tobacco Use Status: Former Tobacco user Tobacco use type: Cigarette Years Smoked: 40 +/- e-Cigarette/Vaping Use: Never Used Second Hand Smoke Exposure: No service: No Current occupational status: retired and disabled Cognitive needs: No Hearing needs: No Vision needs: Yes Review of Systems Const Denies fever(s) and Denies weight loss Card Denies chest pain Resp Denies cough and Denies hemoptysis GI Denies abdominal pain, Denies diarrhea and Denies nausea Musc Denies back pain Neuro Denies focal weakness Physical Exam Vital Signs: Last Vital Signs Pulse 117 H 08/07/25 13:53 BP 140/90 H 08/07/25 14:04 Pulse Ox 97 08/07/25 13:53 Oxygen Delivery Method Room Air 08/07/25 13:53 BMI result Body Mass Index 29.0 Comfortable Neck supple no JVD. Lungs entry equal no rales. Heart S1-S2 heard no gallop or rub. Abdomen soft nontender. Neuro alert awake oriented. No asterixis. Extremities Trace edema. Results Reviewed Nephrology Results: Hgb, (14.0-18.0) 10.3 g/dl L 08/05/25 WBC, (4.8-10.8) 7.4 X10*3/uL 08/05/25 Plt Count, (160-400) 192 X10*3/uL 08/05/25 Sodium, (135-145) 145 mmol/L 08/05/25 Potassium, (3.3-5.1) 5.4 mmol/L H 08/05/25 Chloride, (96-108) 113 mmol/L H 08/05/25 Carbon Dioxide, (22-29) 25 mmol/L 08/05/25 BUN, (9-16) 83 mg/dL H 08/05/25 Creatinine, (0.5-1.4) 5.54 mg/dL H* 08/05/25 Calcium, (8.4-10.2) 9.1 mg/dL 08/05/25 Phosphorus, (2.7-4.5) 4.9 mg/dL H 08/05/25 PTH Intact, (8.7-77.1) 396.6 pg/mL H 08/05/25 Urine Protein, (Neg-Trace) 300 (3+) mg/dL H 08/05/25 Renal US 10/30/23 Assessment & Plan Assessment & Plan (1) CKD (chronic kidney disease) stage 5, GFR less than 15 ml/min: Code(s): N18.5 - Chronic kidney disease, stage 5 Category: Medical Plan: Chronic disease due to interstitial nephritis by biopsy. Initial biopsy was done only [facility] and no tissue was obtained. Repeat biopsy was done and was [facility] which revealed interstitial nephritis with global sclerosis. Sustained another episode of GONZALO. At present no signs or symptoms of uremia No absolute indication for dialysis yet Fluid status acceptable Continue to avoid nephrotoxic agents. Will monitor renal function closely (2) Acute kidney injury superimposed on CKD: Code(s): N17.9 - Acute kidney failure, unspecified; N18.9 - Chronic kidney disease, unspecified Category: Medical Plan: Due to tubular injury. Marginal improvement (3) HTN (hypertension): Code(s): I10 - Essential (primary) hypertension Category: Medical Qualifiers: Hypertension type: primary hypertension Qualified Code(s): I10 - Essential (primary) hypertension Plan: Blood pressure is well controlled Low-salt diet (4) Gout: Code(s): M10.9 - Gout, unspecified Category: Medical Plan: Seems to be under control. Keep Uloric to lower uric acid We discussed low purine diet (5) Hyperkalemia: Code(s): E87.5 - Hyperkalemia Category: Medical Plan: Was not taking Lokelma as prescribed. Had a lengthy discussion. He agreed to restart Discussed Low K diet Increase LOKELMA 5 gm PO 3 x week Plan He will be a good candidate for CCPD Referred for dialysis education No absolute indication for dialysis yet Orders: Orders Basic Metabolic Panel 6 Weeks I10 - Essential (primary) hypertension, N18.5 - Chronic kidney disease, stage 5 Medications: Changed From sodium zirconium cyclosilicate (Lokelma) 10 grams orally Every Monday and ; 11 ea 3RF To sodium zirconium cyclosilicate (Lokelma) Mondays/wednesdays/fridays 10 grams PO .3 times a week PRN 11 ea 3RF high potassium Discontinued dicyclomine Discontinued Reason: Doctor's Order 20 mg PO TID PRN 20 tabs 0RF abdominal pain Coding Level of Care Code Est Pt Level 4 (40883) Diagnoses CKD (chronic kidney disease) stage 5, GFR less than 15 ml/min N18.5 Acute kidney injury superimposed on CKD N17.9; N18.9 Primary hypertension I10 Hypertension type: primary hypertension Gout M10.9 Hyperkalemia E87.5
[2025-08-07 14:04] VITALS: BP 140/90
--- OUTSIDE RECORDS SUMMARY | 2025-08-07 15:36 | XMS_ITS | Encounter Summary ---
Author Organization [employer] Address [address] [facility] 7t [place] [address] Care Team Providers Care Fast Food Crew Lead Name Role Phone Sherry Ward MD Primary Care Provider Robe Parker PharmD Unavailable [phone] Encounter Details Date Type Department Care Team (Late st Contact Info) Description 11/02/2023 Orders Only [facility] MEDICINE [address] [place], [place] [phone] Sherry Ward MD [address] [place], [place] [phone] Social History Tobacco Use Types Packs/Day Years [...] on filedocumented in this encounter Care Teams Fast Food Crew Lead Relationship Specialty Start Date End Date Sherry Ward MD [address] [place] [address] PCP - General Family Medicine 11/20/18 12/17/23 Robe Parker, PharmD [address] [place] [address] Pharmacist Internal Medicine 06/15/23 documented as of this encounter
--- OUTSIDE RECORDS SUMMARY | 2025-08-07 15:36 | XMS_ITS | Encounter Summary ---
Author Organization [employer] Address [address] [facility] 7t [place] [address] Care Team Providers Care Territory Manager General Sales Name Role Phone Robe Parker PharmD Unavailable [phone] Reason for Visit * Reason Comments Med Refill Encounter Details Date Type Department Care Team ([facility] st Contact Info) Description 09/26/2024 Refill [facility] MEDICINE [address] [place] [address] Sherry Ward MD [address] [place], [place] [phone] Dyslipidemia Social History Tobacco Use Types Packs/Day [...] hyperlipidemia documented in this encounter Care Teams Territory Manager General Sales Relationship Specialty Start Date End Date Robe Parker PharmD [address] [place] [phone] Pharmacist Internal Medicine 06/15/23 documented as of this encounter
--- OUTSIDE RECORDS SUMMARY | 2025-08-07 15:36 | XMS_ITS | Encounter Summary ---
Author Organization [employer] Address [address] [facility] 7t [place] [address] Care Team Providers Care Geomatics Professor Name Role Phone Robe Parker PharmD Unavailable [phone] Reason for Visit * Reason Comments Med Refill Encounter Details Date Type Department Care Team ([facility] st Contact Info) Description 08/05/[address] [facility] MEDICINE [address] [place] [address] Sherry Ward MD [address] [place], [place] [phone] Social History Tobacco Use Types Packs/Day Years [...] on filedocumented in this encounter Care Teams Geomatics Professor Relationship Specialty Start Date End Date Robe Parker PharmD [address] [place] [phone] Pharmacist Internal Medicine 06/15/23 documented as of this encounter
--- OUTSIDE RECORDS SUMMARY | 2025-08-07 15:36 | XMS_ITS | Clinical Summary ---
Author Organization [facility] Address [address] [place] [address] Phone Care Team Providers Care Still Operator Helper Name Role Phone Joycelyn Brothers DO [...] 04/02/2021 Overview (01/26/2024): Last Assessment & Plan: -Green Chain Worker: Dr. Roland, last seen in 12/27/21 -Baseline SCr 2.4-2.8; eGFR 22-26, CrCl 28.5 -Most recent lab: 08/05/22 K 5.2, BUN 46, SCr 2.48; eGFR 26 -Avoid nephrotoxic drugs/substances and behaviors, including NSAIDs use. -Renal dose medications. Tinea pedis 04/30/2018 Ischemic heart disease 04/30/2018 Overview (01/26/2024): Last Assessment & Plan: -Mechanical Manager, Dr. Cain, seen on 11/10/22 -TIA in January 2018. Dx Afib. Started on Coumadin. -03/14/18 BRITTANY to distal RCA. Completed uninterrupted Plavix and Coumadin therapy for 1 year. Plan was to swithc Plavix to ASA. Pt is not on ASA or Plavix at this time because his CAD is stable per end maker. - Last echo in 12/28/21: Normal LV function, EF 55-60%. slight decrease from last echo. mild GERD reguigitation -Continue current medications History of placement of stent for coronary arter y disease 04/30/2018 Chronic atrial fibrillation 02/09/2018 Overview (01/26/2024): Last Assessment & Plan: A-fib today, rate controlled. pt is usually asymptomatic whether he is bradycardia and tachycardia -his end maker recommends rate control rather than rhythm control [...] Years) Discontinued 03/21/2016, 06/18/2015, 04/14/[address] [place] [phone] [employer] ([id number]) [address] [place] [phone] [facility] [employer] ([id number]) Care Teams Still Operator Helper Relationship Specialty Start Date End Date Joycelyn Brothers DO PCP - General 11/30/20
--- OUTSIDE RECORDS SUMMARY | 2025-08-07 15:36 | XMS_ITS | Encounter Summary ---
Author Organization [employer] Address [address] [facility] 7t [place] [address] Care Team Providers Care Electron Beam Photo Mask Maker Name Role Phone Sherry Ward MD Primary Care Provider [phone] Robe Parker PharmD Unavailable [phone] Reason for Visit * Reason Onset Date Comments triage 11/25/2022 Encounter Details Date Type Department Care Team ([facility] st Contact Info) Description 11/25/2022 Telephone [facility] MEDICINE [address] [place], [place] [phone] Sherry Ward MD [address] [place], [place] [phone] triage Social History Tobacco Use Types Packs/Day [...] 11/25/2022 4:06 PM EST Triage call with [employer] [facility] Nurse ID [id number] Pt reports son came over this morning [...] on filedocumented in this encounter Care Teams Electron Beam Photo Mask Maker Relationship Specialty Start Date End Date Sherry Ward MD [address] [place] [address] PCP - General Family Medicine 11/20/18 12/17/23 Robe Parker, IrisD [address] [place] [address] Pharmacist Internal Medicine 06/15/23 documented as of this encounter
--- OUTSIDE RECORDS SUMMARY | 2025-08-07 15:36 | XMS_ITS | Clinical Summary ---
Author Organization [employer] Address [address] [facility] 7t [place] [address] Care Team Providers Care It Programmer Analyst Name Role Phone Robe Parker PharmD Unavailable [phone] Allergies Active Allergy Reactions Criticality Noted Date [...] 1 3 Active Lancets (OneTouch Delica Plus [id number]) [facility] Check blood sugar once daily 100 each 11 3 Active Blood Glucose Monitoring Suppl (ONE TOUCH ULTRA 2) w/Device kitIndications:T ype 2 diabetes mellitus with stage 4 chronic kidney disease, without long-term current use of insulin (CMS/[facility]) 1 kit Once daily. 1 kit [...] taking febuxostat 40 mg daily prescribed by room manager - continue febuxostat 40 mg daily - [...] fibrilation - medication: warfarin - monitored by [facility] - most recent INR 2.2 on 10/20/23 - continue current treatment plan Assessment & Plan (03/21/2023 11:52 AM EDT): - indication: Atrial fibrilation - medication: warfarin - monitored by [facility] - most [...] Assessment & Plan (11/05/2023 4:30 PM EST): -Inside Steward/Stewardess: Dr. Roland, last seen in Sep 2023 -Baseline SCr 2.0-2.4; eGFR 27-32, K 4.9-5.4 -Avoid nephrotoxic drugs/substances and behaviors, including NSAIDs use. -Renal dose medications. Assessment & Plan (03/13/2023 1:36 PM EDT): -Inside Steward/Stewardess: Dr. Roland, last seen in 12/27/21 -Baseline SCr 2.4-2.8; eGFR 22-26, CrCl 28.5 -Most recent lab: 08/05/22 K 5.2, BUN 46, SCr 2.48; eGFR 26 -Avoid nephrotoxic drugs/substances and behaviors, including NSAIDs use. -Renal dose medications. Assessment & Plan (12/19/2022 1:28 PM EST): -Inside Steward/Stewardess: Dr. oRland, last seen in 12/27/21 -Baseline SCr 2.4-2.8; eGFR 22-26, CrCl 28.5 -Most recent lab: 08/05/22 K 5.2, BUN 46, SCr 2.48; eGFR 26 -Avoid nephrotoxic drugs/substances and behaviors, including NSAIDs use. -Renal dose medications. Assessment & Plan (11/07/2022 4:55 AM EST): -Inside Steward/Stewardess: Dr. Roland, last seen in 12/27/21 -Baseline SCr 2.4-2.8; eGFR 22-26, CrCl 28.5 -Most recent lab: 08/05/22 K 5.2, BUN 46, SCr 2.48; eGFR 26 -Avoid nephrotoxic drugs/substances and behaviors, including NSAIDs use. -Renal dose medications. Chronic interstitial nephritis 04/02/2021 Proteinuria 04/02/2021 Ischemic heart disease 04/30/2018 Assessment & Plan (11/05/2023 4:06 PM EST): -Syrup Blender, Dr. Cain, seen in April 2023 -TIA [...] Assessment & Plan (03/13/2023 1:29 PM EDT): -Syrup Blender, Dr. Cain, seen on 11/10/22 -TIA in January 2018. Dx Afib. Started on Coumadin. -03/14/18 BRITTANY to distal RCA. Completed uninterrupted Plavix and Coumadin therapy for 1 year. Plan was to swithc Plavix to ASA. Pt is not on ASA or Plavix at this time because his CAD is stable per drill sergeant. - Last echo in 12/28/21: Normal LV function, EF 55-60%. slight decrease from last echo. mild GERD reguigitation -Continue current medications Assessment & Plan (12/25/2022 7:27 AM EST): -Syrup Blender, Dr. Cain, seen on 11/10/22 -TIA in January 2018. Dx Afib. Started on Coumadin. -03/14/18 BRITTANY to distal RCA. Completed uninterrupted Plavix and Coumadin therapy for 1 year. Plan was to swithc Plavix to ASA. Pt is not on ASA or Plavix at this time because his CAD is stable per drill sergeant. - Last echo in 12/28/21: Normal LV function, EF 55-60%. slight decrease from last echo. mild GERD reguigitation -Continue current medications Assessment & Plan (11/07/2022 5:02 AM EST): -Syrup Blender, Dr. Cain, seen on 05/19/22 -TIA in January 2018. Dx Afib. Started on Coumadin. -03/14/18 BRITTANY to distal RCA. Completed uninterrupted Plavix and Coumadin therapy for 1 year. Plan was to swithc Plavix to ASA. Pt is not on ASA or Plavix at this time because his CAD is stable per drill sergeant. - Last echo in 12/28/21: Normal LV [...] whether he is bradycardia and tachycardia -his drill sergeant recommends rate control rather than rhythm control - Continue rate control with metoprolol tartrate 100 mg bid - Continue digoxin 125 mcg daily - Continue warfarin, which is monitored by [facility]tico[facility] -- Treatment [...] whether he is bradycardia and tachycardia -his drill sergeant recommends rate control rather than rhythm control - Continue rate control with metoprolol tartrate 100 mg bid - Continue digoxin 125 mcg daily - Continue warfarin, which is monitored by [facility] Antico[facility] -- Treatment [...] wheter he is bradycardiac and tachycardiac -his drill sergeant recommends rate control rather than rhythm control - Continue rate control with metoprolol tartrate 100 mg bid - Continue digoxin 125 mcg daily - Continue warfarin, which is monitored by [facility] Anticoagulation clinic -- Treatment [...] microalbuminuria due to type 2 diabetes mellitus ([facility]) 12/25/2014 Type 2 diabetes mellitus 12/25/2014 [...] Logan -Pt requests to be referred to [facility] where his son [...] wheter he is bradycardiac and tachycardiac -his drill sergeant recommends rate control rather than rhythm control [...] decreased -Continue Coumadin, which is monitored by [facility] anticoagulation clinic. -Holter monitor on 04/13/22 showed average HR 61 bpm, sinus. A-fib 36%. -Holter monitor on 09/08/22 showed average HR 101 bpm, baseline A-fib, HR > 100 for 67% period -Pt states he has been taking digoxin. Will confirm it with drill sergeant. Mild intermittent asthma 09/01/201503/2023 Immunizations Immunization Administration [...] disease, without long-term current use of insulin ([facility]) HM COLONOSCOPY Routine 04/22/2019 from Last 3 Months or Most Recently Relevant to Health Maintenance Results * (ABNORMAL) Lipid Panel with Reflex to Direct LDL (10/30/2023 2:57 PM EST) Triglycerides 433(H) <150 mg/dL [facility] Comment:Desirable Triglyceri de: less than 150 mg/dLBorderline High Triglyceride 150-199 mg/dLHigh Triglyceride: 200-499 mg/dLVery High Triglyceride: greater than or equal to 5OO mg/dL Cholesterol 266(H) <200 mg/dL [facility] Comment:Desirable Cholestero l: less than 200 mg/dLBorderline High Cholesterol: 200-239 mg/dLHigh Cholesterol: greater than 239 mg/dL LDL Cholesterol Calculated TNP <100 mg/dL [facility] Comment:Unable to calculate the LDL. The formula of Friedwald,Olsen, and Stefanie is only valid if the triglycerides areless than 400 mg/dl. HDL Cholesterol 28(L) >40 mg/dL [facility] Comment:Desirable HDL: great er than 40 mg/dL Note: This HDL assay may give artificially low results in patients with liver disease. Blood 10/30/2023 2:57 PM EST 10/30/2023 3:58 PM EST Sherry Ward MD LAB BLOOD ORDERABLES Final Resul t [facility] [address] [place] [phone] * (ABNORMAL) POCT glycosylated hemoglobin (Hgb [...] Most Recently Relevant to Health Maintenance Insurance [facility] STANDARD [address] [place] [id number] [place] [id number] Care Teams It Programmer Analyst Relationship Specialty Start Date End Date Robe Parker, IrisD [address] [place] [phone] Pharmacist Internal Medicine 06/15/23
--- OUTSIDE RECORDS SUMMARY | 2025-08-07 15:36 | XMS_ITS | Encounter Summary ---
Author Organization [employer] Address [address] [facility] 7t [place] [address] Care Team Providers Care Property Management Bookkeeper Name Role Phone Robe Parker PharmD Unavailable [phone] Reason for Visit * Reason Comments Med Refill Encounter Details Date Type Department Care Team ([facility] st Contact Info) Description 03/11/2024 Refill [facility] MEDICINE [address] [place] [address] Sherry Ward MD [address] [place], [place] [phone] Neuropathic pain Social History Tobacco Use Types [...] pain documented in this encounter Care Teams Property Management Bookkeeper Relationship Specialty Start Date End Date Robe Parker PharmD [address] [place] [phone] Pharmacist Internal Medicine 06/15/23 documented as of this encounter
--- OUTSIDE RECORDS SUMMARY | 2025-08-07 15:36 | XMS_ITS | Encounter Summary ---
Author Organization [employer] Address 75 [facility] 7t [place] [address] Care Team Providers Care Chute Greaser Name Role Phone Robe Parker PharmD Unavailable [phone] Reason for Visit * Reason Comments Med Refill Encounter Details Date Type Department Care Team ([facility] st Contact Info) Description 03/08/2024 Refill [facility] MEDICINE [address] [place] [address] Sherry Ward MD [address] [place], [place] [phone] Neuropathic pain Social History Tobacco Use Types [...] pain documented in this encounter Care Teams Chute Greaser Relationship Specialty Start Date End Date Robe Parker PharmD [address] [place] [address] Pharmacist Internal Medicine 06/15/23 documented as of this encounter
--- OUTSIDE RECORDS SUMMARY | 2025-08-07 15:36 | XMS_ITS | Encounter Summary ---
Author Organization [email or web address] Address [address] [place] [address] 7t [place] [address] Care Team Providers Care Land Leasing Examiner Name Role Phone Sherry Ward MD Primary Care Provider [phone] Robe Parker PharmD Unavailable [phone] Reason for Referral * Imaging (Routine) - Closed Specialty Diagnoses / Procedures Referred By Contac t Referred To Contact Diagnoses Vertigo Ischemic heart disease Chronic atrial fibrillation (CMS/HCC) Essential hypertension Procedures Mr Brain w/ and w/o Contrast Sherry Ward MD 230 [place] [address] Phone: tel: fax: [facility] MRI and CT Scan [address] [place], [place] Phone: tel: fax: Referral ID Status Reason Start Date Expiration Date Visits Re quested Visits Authorized [id number] Closed 11/17/2022 11/17/2023 1 1 Encounter Details Date Type Department Care Team (Late st Contact Info) Description 11/08/2022 Orders Only [facility] MEDICINE [address] [place], [place] [phone] Sherry Ward MD [address] [place], [place] [phone] Vertigo (Primary Dx); Ischemic heart disease; Chronic [...] hypertension documented in this encounter Care Teams Land Leasing Examiner Relationship Specialty Start Date End Date Sherry Ward MD 230 [place] [address] PCP - General Family Medicine 11/20/18 12/17/23 Robe Parker, Gabby [address] [place] [address] Pharmacist Internal Medicine 06/15/23 documented as of this encounter
--- OUTSIDE RECORDS SUMMARY | 2025-08-07 15:36 | XMS_ITS | Encounter Summary ---
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 Please advise Thank you CB# [phone] documented in this encounter Plan of Treatment Not on file documented as of this encounter Visit Diagnoses Not on filedocumented in this encounter Care Teams Dye And Chemical Coordinator Relationship Specialty Start Date End Date Joycelyn Brothers DO PCP - General 11/30/20 documented as of this encounter
--- OUTSIDE RECORDS SUMMARY | 2025-08-07 15:36 | XMS_ITS | Encounter Summary ---
Author Organization [employer] Address 75 [facility] 7t [place] [address] Care Team Providers Care Size Tester Name Role Phone Sherry Ward MD Primary Care Provider [phone] Robe Parker PharmD Unavailable [phone] Encounter Details Date Type Department Care Team (Late st Contact Info) Description 11/02/2023 Orders Only [facility] MEDICINE 230 [place], [place] [phone] Sherry Ward MD [address] [place], [place] [phone] Left foot pain (Primary Dx) Social History [...] limb documented in this encounter Care Teams Size Tester Relationship Specialty Start Date End Date Sherry Ward MD 230 [place] [address] PCP - General Family Medicine 11/20/18 12/17/23 Robe Parker, PharmD [address] [place] [address] Pharmacist Internal Medicine 06/15/23 documented as of this encounter
--- OUTSIDE RECORDS SUMMARY | 2025-08-07 15:36 | XMS_ITS | Encounter Summary ---
Author Organization [employer] Address 75 [facility] 7t [place] [address] Care Team Providers Care Offal Roller Name Role Phone Sherry Ward MD Primary Care Provider [phone] Robe Parker PharmD Unavailable [phone] Encounter Details Date Type Department Care Team (Late st Contact Info) Description 11/04/2022 Orders Only [facility] MEDICINE 230 [place] [address] Sharon Ko, RN Social History Tobacco Use [...] on filedocumented in this encounter Care Teams Offal Roller Relationship Specialty Start Date End Date Sherry Ward MD [address] [place] [address] PCP - General Family Medicine 11/20/18 12/17/23 Robe Parker, IrisD 230 [place] [address] Pharmacist Internal Medicine 06/15/23 documented as of this encounter
--- OUTSIDE RECORDS SUMMARY | 2025-08-07 15:36 | XMS_ITS | Encounter Summary ---
Author Organization [employer] Address 75 [facility] 7t [place] [address] Care Team Providers Care Dinkey Locomotive Operator Name Role Phone Robe Parker PharmD Unavailable [phone] Reason for Visit * Reason Comments Med Refill Encounter Details Date Type Department Care Team ([facility] st Contact Info) Description 05/07/2024 Refill [facility] MEDICINE 230 [place] [address] Sherry Ward MD [address] [place], [place] [phone] Social History Tobacco Use Types Packs/Day Years [...] on filedocumented in this encounter Care Teams Dinkey Locomotive Operator Relationship Specialty Start Date End Date Robe Parker PharmD [address] [place] [address] Pharmacist Internal Medicine 06/15/23 documented as of this encounter
--- OUTSIDE RECORDS SUMMARY | 2025-08-07 15:36 | XMS_ITS | Encounter Summary ---
Author Organization [employer] Address [address] [place] [address] 7t [place] [address] Care Team Providers Care Hose Coupling Joiner Name Role Phone Sherry Ward MD Primary Care Provider [phone] Robe Parker PharmD Unavailable [phone] Encounter Details Date Type Department Care Team (Late st Contact Info) Description 01/23/2023 Orders Only [facility] MEDICINE [address] [place] [address] Nivia Serrato MD 230 [place], [place] [phone] Hyperkalemia (Primary Dx) Social History Tobacco Use [...] Hyperpotassemia documented in this encounter Care Teams Hose Coupling Joiner Relationship Specialty Start Date End Date Sherry Ward MD [address] [place] [phone] PCP - General Family Medicine 11/20/18 12/17/23 Robe Parker, PharmD [address] [place] [address] Pharmacist Internal Medicine 06/15/23 documented as of this encounter
--- OUTSIDE RECORDS SUMMARY | 2025-08-07 15:36 | XMS_ITS | Encounter Summary ---
Author Organization [facility] Address [facility] [address] [place] [address] Phone Care Team Providers Care Rac Specialist Name Role Phone Joycelyn Brothers DO Primary Care Provider Ema ilva Encounter Details Date Type Department Care Team (Late st Contact Info) Description 05/29/2021 Orders Only [facility] [address] [place] [phone] Alex Garcia MD Chronic kidney disease stage [...] (HCC) documented in this encounter Care Teams Rac Specialist Relationship Specialty Start Date End Date Joycelyn Brothers DO PCP - General 11/30/20 documented as of this encounter
--- OUTSIDE RECORDS SUMMARY | 2025-08-07 15:37 | XMS_ITS | Encounter Summary ---
Author Organization [employer] Address 75 [facility] 7t [place] [address] Care Team Providers Care Brim Curler Name Role Phone Robe Parker PharmD Unavailable [phone] Reason for Visit * Reason Comments Med Refill Encounter Details Date Type Department Care Team ([facility] st Contact Info) Description 01/11/2024 Refill [facility] MEDICINE 230 [place] [address] Jaqui Chowdary MD 230 [place], [place] [phone] Social History Tobacco Use Types Packs/Day Years [...] on filedocumented in this encounter Care Teams Brim Curler Relationship Specialty Start Date End Date Robe Parker PharmD [address] [place] [address] Pharmacist Internal Medicine 06/15/23 documented as of this encounter
--- OUTSIDE RECORDS SUMMARY | 2025-08-07 15:37 | XMS_ITS | Encounter Summary ---
Author Organization [employer] Address 75 [facility] 7t [place] [address] Care Team Providers Care Manager Resort Name Role Phone Robe Parker PharmD Unavailable [phone] Reason for Visit * Reason Comments Med Refill Encounter Details Date Type Department Care Team ([facility] st Contact Info) Description 03/08/2024 Refill [facility] MEDICINE 230 [place] [address] Roopa Unger ANP 230 [place] [address] Social History Tobacco Use Types Packs/Day Years [...] filedocumented in this encounter Care Teams Manager Resort Relationship Specialty Start Date End Date Robe Parker PharmD [address] [place] [address] Pharmacist Internal Medicine 06/15/23 documented as of this encounter
== END 2025-08-07 14:07 | disposition home or self-care (01) ==
LOC: HO.HKA 13:34
PROVIDERS: PCP Physician Assistant; Visit Provider Internal Medicine Hypertension Specialist
DX: I12.9 Hypertensive chronic kidney disease with stage 1 through stage 4 chronic kidney disease, or unspecified chronic kidney disease (principal); N18.5 Chronic kidney disease, stage 5; N17.9 Acute kidney failure, unspecified; M10.9 Gout, unspecified; E87.5 Hyperkalemia
CPT/HCPCS: 99214

== ENCOUNTER → 2025-08-07 13:33 | Outpatient (BNVA) | payer OTHER, SELFPAY | PROVIDERS: PCP Physician Assistant; Visit Provider Internal Medicine Hypertension Specialist | DX: I12.9 Hypertensive chronic kidney disease with stage 1 through stage 4 chronic kidney disease, or unspecified chronic kidney disease (principal); N18.5 Chronic kidney disease, stage 5; N17.9 Acute kidney failure, unspecified; M10.9 Gout, unspecified; E87.5 Hyperkalemia; Z79.01 Long term (current) use of anticoagulants; Z79.899 Other long term (current) drug therapy | CPT/HCPCS: 99212 ==

== ENCOUNTER 2025-08-15 11:11 | Outpatient (AMB) | payer OTHER, SELFPAY ==
[2025-08-15 11:22] LABS: Prothrombin Time Whole Bld POC 38.7 sec (11.1-13.5); ~PT, ~INR - Anti Coag Clinic 3.2 (0.9-1.1)
--- NOTE | 2025-08-15 11:37 | MHC.OFFVISCO ---
Intake Intake Visit Reasons: Anticoagulation Allergies lisinopril (LISINOPRIL) Allergy (Severe, Verified 08/15/25 11:16) ACUTE KIDNEY INJURY oxycodone (Percocet) Allergy (Intermediate, Verified 08/15/25 11:16) agitation codeine (CODEINE) Allergy (Unknown, Verified 08/15/25 11:16) AGITATION morphine (MORPHINE) Allergy (Unknown, Verified 08/15/25 11:16) AGITATION, confusion dicyclomine (From A-Spas (dicyclomine)) Adverse Reaction (Intermediate, Verified 08/15/25 11:16) Confusion From PERCOCET Allergy (Unknown, Uncoded 08/15/25 11:16) AGITATION Medication List - Last Reconciled 08/15/25 by Anne Gould RN amlodipine 5 mg PO DAILY 90 days atorvastatin 80 mg PO QAM cholecalciferol (vitamin D3) 25 mcg PO DAILY compression socks, large As directed febuxostat (Uloric) 40 mg PO DAILY fluticasone propionate 50 mcg/actuation 1 spray intranasal DAILY 30 days furosemide 40 mg PO QAM gabapentin 200 mg (2 x 100 mg) PO BEDTIME 30 days hydroxyzine HCl 25 mg PO BEDTIME 30 days meclizine 25 mg PO TID PRN 30 days metoprolol tartrate 50 mg See Protocol PO BID 90 days sodium zirconium cyclosilicate (Lokelma) 10 grams PO .3 times a week PRN warfarin 7.5 mg See Protocol PO MO warfarin 5 mg See Protocol PO SUTUWETHFRSA Nursing Note INR 3.2 still out of therapeutic range 2.0-3.0 Medications and supplements reviewed Patient status: states he has decreased appetite intentionally to loose weight, but also not as hungry as he used to be Medications or supplements: no longer taking dicyclomine for stomach upset because it made him confused crazy per son. Diet: decreased appetite but did eat more greens Denies any signs and symptoms of bleeding or clotting or unusual bruising Bleeding, bruising, clotting discussed Nutritional guidance given: keep up weekly greens and protein and water for INR and over all good health Dose: keep same dose for now 7.5mg x 1 day/ 5mg x 6 days F/U INR Date: 2 weeks ?? Patient verbalizing understanding of instructions given. Anti-Coag Initial Assessment Social Hx Patient Tobacco Use Status: Former Tobacco user Tobacco use type: Cigarette alcohol intake: former Alcohol intake frequency: does not drink Coding Level of Care Code Est Patient Level 1 Diagnoses Current use of anticoagulant therapy Z79.01 Assessment & Plan Assessment & Plan (1) Current use of anticoagulant therapy: Code(s): Z79.01 - extermination inspector (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
--- OUTSIDE RECORDS SUMMARY | 2025-08-15 12:56 | XMS_ITS | Encounter Summary ---
Author Organization [employer] Address 75 [facility] 7t [place] [address] Care Team Providers Care Director Of Marketing Name Role Phone Sherry Ward MD Primary Care Provider [phone] Robe Parker PharmD Unavailable [phone] Reason for Visit * Reason Onset Date Comments triage 11/25/2022 Encounter Details Date Type Department Care Team ([facility] st Contact Info) Description 11/25/2022 Telephone [facility] MEDICINE 230 [place], [place] [phone] Sherry Ward MD 230 [place], [place] [phone] triage Social History Tobacco Use Types Packs/Day [...] 11/25/2022 4:06 PM EST Triage call with [employer] Journalism Instructor ID [id number] Pt reports son came over this morning to test with home test. Pt isn't sure if it is positive and is requesting medication. Pt reports has had Covid before . Pt is unable to come to [facility] today for further testing. Pt [...] in this encounter Care Teams Director Of Marketing Relationship Specialty Start Date End Date Sherry Ward MD 230 [place] [address] PCP - General Family Medicine 11/20/18 12/17/23 Robe Parker, IrisD [address] [place] [address] Pharmacist Internal Medicine 06/15/23 documented as of this encounter
--- OUTSIDE RECORDS SUMMARY | 2025-08-15 12:56 | XMS_ITS | Encounter Summary ---
Author Organization [employer] Address 75 [facility] 7t [place] [address] Care Team Providers Care Psychiatric Social Worker Supervisor Name Role Phone Sherry Ward MD Primary Care Provider [phone] Robe Parker PharmD Unavailable [phone] Encounter Details Date Type Department Care Team (Late st Contact Info) Description 11/02/2023 Orders Only [facility] MEDICINE 230 [place], [place] [phone] Sherry Ward MD 230 [place], [place] [phone] Left foot pain (Primary Dx) Social History [...] limb documented in this encounter Care Teams Psychiatric Social Worker Supervisor Relationship Specialty Start Date End Date Sherry Ward MD 230 [place] [address] PCP - General Family Medicine 11/20/18 12/17/23 Robe Parker, PharmD 230 [place] [address] Pharmacist Internal Medicine 06/15/23 documented as of this encounter
--- OUTSIDE RECORDS SUMMARY | 2025-08-15 12:56 | XMS_ITS | Encounter Summary ---
Author Organization [employer] Address 75 [facility] 7t [place] [address] Care Team Providers Care Poll Watcher Name Role Phone Robe Parker PharmD Unavailable [phone] Reason for Visit * Reason Comments Med Refill Encounter Details Date Type Department Care Team ([facility] st Contact Info) Description 08/05/2024 Refill [facility] MEDICINE 230 [place] [address] Sherry Ward MD 230 [place], [place] [phone] Social History Tobacco Use Types Packs/Day Years [...] on filedocumented in this encounter Care Teams Poll Watcher Relationship Specialty Start Date End Date Robe Parker PharmD [address] [place] [address] Pharmacist Internal Medicine 06/15/23 documented as of this encounter
--- OUTSIDE RECORDS SUMMARY | 2025-08-15 12:56 | XMS_ITS | Clinical Summary ---
Author Organization [facility] Address [address] [facility] [address] [place] [address] Phone Care Team Providers Care Torch Heater Name Role Phone Joycelyn Brothers DO Primary [...] adenomatous polyp of colon 01/26/2024 Tinnitus 03/21/2023 detention current use of anticoagulant Overview (01/26/2024): Last Assessment & Plan: - indication: Atrial fibrilation - medication: warfarin - monitored by [facility] Antico[facility] - most recent INR 1.6 [...] 04/02/2021 Overview (01/26/2024): Last Assessment & Plan: -Merchandise Flow Associate: Dr. Roland, last seen in 12/27/21 -Baseline SCr 2.4-2.8; eGFR 22-26, CrCl 28.5 -Most recent lab: 08/05/22 K 5.2, BUN 46, SCr 2.48; eGFR 26 -Avoid nephrotoxic drugs/substances and behaviors, including NSAIDs use. -Renal dose medications. Tinea pedis 04/30/2018 Ischemic heart disease 04/30/2018 Overview (01/26/2024): Last Assessment & Plan: -Sole Edge Inker Machine, Dr. Cain, seen on 11/10/22 -TIA in January 2018. Dx Afib. Started on Coumadin. -03/14/18 BRITTANY to distal RCA. Completed uninterrupted Plavix and Coumadin therapy for 1 year. Plan was to swithc Plavix to ASA. Pt is not on ASA or Plavix at this time because his CAD is stable per school social worker. - Last echo in 12/28/21: Normal LV function, EF 55-60%. slight decrease from last echo. mild GERD reguigitation -Continue current medications History of placement of stent for coronary arter y disease 04/30/2018 Chronic atrial fibrillation 02/09/2018 Overview (01/26/2024): Last Assessment & Plan: A-fib today, rate controlled. pt is usually asymptomatic whether he is bradycardia and tachycardia -his school social worker recommends rate control rather than rhythm control - Continue rate control with metoprolol tartrate 100 mg bid - Continue digoxin 125 mcg daily - Continue warfarin, which is monitored by [facility] Anticoagulation clinic -- Treatment Hx: --Previously on [...] Years) Discontinued 03/21/2016, 06/18/2015, 04/14/[address] [place] [phone] [employer] ([id number]) [address] [place] [address] [facility] [employer] [place] ([id number]) [place] [address] Care Teams Torch Heater Relationship Specialty Start Date End Date Joycelyn Brothers DO PCP - General 11/30/20
--- OUTSIDE RECORDS SUMMARY | 2025-08-15 12:56 | XMS_ITS | Encounter Summary ---
Author Organization [employer] Address 75 [facility] 7t [place] [address] Care Team Providers Care Laboratory Apparatus Glass Blower Name Role Phone Robe Parker PharmD Unavailable [phone] Reason for Visit * Reason Comments Med Refill Encounter Details Date Type Department Care Team ([facility] st Contact Info) Description 03/11/2024 Refill [facility] MEDICINE 230 [place] [address] Sherry Ward MD 230 [place], [place] [phone] Neuropathic pain Social History Tobacco Use Types [...] pain documented in this encounter Care Teams Laboratory Apparatus Glass Blower Relationship Specialty Start Date End Date Robe Parker PharmD [address] [place] [address] Pharmacist Internal Medicine 06/15/23 documented as of this encounter
--- OUTSIDE RECORDS SUMMARY | 2025-08-15 12:56 | XMS_ITS | Clinical Summary ---
Author Organization [employer] Address [address] [facility] 7t [place] [address] Care Team Providers Care Screen Handler Name Role Phone Robe Parker PharmD Unavailable [phone] Allergies Active Allergy Reactions Criticality Noted Date [...] 1 3 Active Lancets (OneTouch Delica Plus [id number]) [facility] Check blood sugar once daily 100 each 11 3 Active Blood Glucose Monitoring Suppl (ONE TOUCH ULTRA 2) w/Device kitIndications:T ype 2 diabetes mellitus with stage 4 chronic kidney disease, without long-term current use of insulin (CMS/[facility]) 1 kit Once daily. 1 kit 3 [...] taking febuxostat 40 mg daily prescribed by photo retoucher - continue febuxostat 40 mg daily - [...] - medication: warfarin - [place] [facility] [place] [facility] - most recent INR 2.2 on 10/20/23 - continue current treatment plan Assessment & Plan (03/21/2023 11:52 AM EDT): - indication: Atrial fibrilation - medication: warfarin - [place] [facility] [place] [...] Assessment & Plan (11/05/2023 4:30 PM EST): -Yard Driver: Dr. Roland, last seen in Sep 2023 -Baseline SCr 2.0-2.4; eGFR 27-32, K 4.9-5.4 -Avoid nephrotoxic drugs/substances and behaviors, including NSAIDs use. -Renal dose medications. Assessment & Plan (03/13/2023 1:36 PM EDT): -Yard Driver: Dr. Roland, last seen in 12/27/21 -Baseline SCr 2.4-2.8; eGFR 22-26, CrCl 28.5 -Most recent lab: 08/05/22 K 5.2, BUN 46, SCr 2.48; eGFR 26 -Avoid nephrotoxic drugs/substances and behaviors, including NSAIDs use. -Renal dose medications. Assessment & Plan (12/19/2022 1:28 PM EST): -Yard Driver: Dr. Roland, last seen in 12/27/21 -Baseline SCr 2.4-2.8; eGFR 22-26, CrCl 28.5 -Most recent lab: 08/05/22 K 5.2, BUN 46, SCr 2.48; eGFR 26 -Avoid nephrotoxic drugs/substances and behaviors, including NSAIDs use. -Renal dose medications. Assessment & Plan (11/07/2022 4:55 AM EST): -Yard Driver: Dr. Roland, last seen in 12/27/21 -Baseline SCr 2.4-2.8; eGFR 22-26, CrCl 28.5 -Most recent lab: 08/05/22 K 5.2, BUN 46, SCr 2.48; eGFR 26 -Avoid nephrotoxic drugs/substances and behaviors, including NSAIDs use. -Renal dose medications. Chronic interstitial nephritis 04/02/2021 Proteinuria 04/02/2021 Ischemic heart disease 04/30/2018 Assessment & Plan (11/05/2023 4:06 PM EST): -Lining Folder, Dr. Cain, seen in April 2023 -TIA [...] Assessment & Plan (03/13/2023 1:29 PM EDT): -Lining Folder, Dr. Cain, seen on 11/10/22 -TIA in January 2018. Dx Afib. Started on Coumadin. -03/14/18 BRITTANY to distal RCA. Completed uninterrupted Plavix and Coumadin therapy for 1 year. Plan was to swithc Plavix to ASA. Pt is not on ASA or Plavix at this time because his CAD is stable per torque tester. - Last echo in 12/28/21: Normal LV function, EF 55-60%. slight decrease from last echo. mild GERD reguigitation -Continue current medications Assessment & Plan (12/25/2022 7:27 AM EST): -Lining Folder, Dr. Cain, seen on 11/10/22 -TIA in January 2018. Dx Afib. Started on Coumadin. -03/14/18 BRITTANY to distal RCA. Completed uninterrupted Plavix and Coumadin therapy for 1 year. Plan was to swithc Plavix to ASA. Pt is not on ASA or Plavix at this time because his CAD is stable per torque tester. - Last echo in 12/28/21: Normal LV function, EF 55-60%. slight decrease from last echo. mild GERD reguigitation -Continue current medications Assessment & Plan (11/07/2022 5:02 AM EST): -Lining Folder, Dr. Cain, seen on 05/19/22 -TIA in January 2018. Dx Afib. Started on Coumadin. -03/14/18 BRITTANY to distal RCA. Completed uninterrupted Plavix and Coumadin therapy for 1 year. Plan was to swithc Plavix to ASA. Pt is not on ASA or Plavix at this time because his CAD is stable per torque tester. - Last echo in 12/28/21: Normal LV [...] whether he is bradycardia and tachycardia -his torque tester recommends rate control rather than rhythm control - Continue rate control with metoprolol tartrate 100 mg bid - Continue digoxin 125 mcg daily - Continue warfarin, which is monitored [place] [facility] [place] [...] whether he is bradycardia and tachycardia -his torque tester recommends rate control rather than rhythm control - Continue rate control with metoprolol tartrate 100 mg bid - Continue digoxin 125 mcg daily - Continue warfarin, which is monitored [place] [facility] [place] [...] wheter he is bradycardiac and tachycardiac -his torque tester recommends rate control rather than rhythm control - Continue rate control with metoprolol tartrate 100 mg bid - Continue digoxin 125 mcg daily - Continue warfarin, which is monitored by [facility] [place] [...] microalbuminuria due to type 2 diabetes mellitus ([facility]) 12/25/2014 Type 2 diabetes mellitus 12/25/2014 Assessment [...] -Pt requests to be referred [place] [facility] where his son [...] wheter he is bradycardiac and tachycardiac -his torque tester recommends rate control rather than rhythm control [...] -Continue Coumadin, which is monitored [place] [facility] [place]. -Holter monitor on 04/13/22 showed average HR 61 bpm, sinus. A-fib 36%. -Holter monitor on 09/08/22 showed average HR 101 bpm, baseline A-fib, HR > 100 for 67% period -Pt states he has been taking digoxin. Will confirm it with torque tester. Mild intermittent asthma 09/01/201503/2023 Immunizations Immunization Administration [...] disease, without long-term current use of insulin ([facility]) HM COLONOSCOPY Routine 04/22/2019 from Last 3 Months or Most Recently Relevant to Health Maintenance Results * (ABNORMAL) Lipid Panel with Reflex to Direct LDL (10/30/2023 2:57 PM EST) Triglycerides 433(H) <150 mg/dL [facility] Comment:Desirable Triglyceri de: less than 150 mg/dLBorderline High Triglyceride 150-199 mg/dLHigh Triglyceride: 200-499 mg/dLVery High Triglyceride: greater than or equal to 5OO mg/dL Cholesterol 266(H) <200 mg/dL [facility] Comment:Desirable Cholestero l: less than 200 mg/dLBorderline High Cholesterol: 200-239 mg/dLHigh Cholesterol: greater than 239 mg/dL LDL Cholesterol Calculated TNP <100 mg/dL [facility] Comment:Unable to calculate the LDL. The formula of Friedwald,Olsen, and Stefanie is only valid if the triglycerides areless than 400 mg/dl. HDL Cholesterol 28(L) >40 mg/dL [facility] Comment:Desirable HDL: great er than 40 mg/dL Note: This HDL assay may give artificially low results in patients with liver disease. Blood 10/30/2023 2:57 PM EST 10/30/2023 3:58 PM EST Sherry Ward MD LAB BLOOD ORDERABLES Final Resul t [facility] [address] [place] [phone] * (ABNORMAL) POCT glycosylated hemoglobin (Hgb [...] Most Recently Relevant to [place] [address] [facility] [address] [place] [address] [address] [place] [id number] Care Teams Screen Handler Relationship Specialty Start Date End Date Robe Parker, IrisD [address] [place] [address] Pharmacist Internal Medicine 06/15/23
--- OUTSIDE RECORDS SUMMARY | 2025-08-15 12:56 | XMS_ITS | Encounter Summary ---
Author Organization [employer] Address [address] [place] [address] 7t [place] [address] Care Team Providers Care Water Plumber Name Role Phone Sherry Ward MD Primary Care Provider [phone] Robe Parker PharmD Unavailable [phone] Reason for Referral * Imaging (Routine) - Closed Specialty Diagnoses / Procedures Referred By Contac t Referred To Contact Diagnoses Vertigo Ischemic heart disease Chronic atrial fibrillation (CMS/HCC) Essential hypertension Procedures Mr Brain w/ and w/o Contrast Sherry Ward MD [address] [place] [address] Phone: tel: fax: [facility] [place] [facility] [place] Scan [address] [place], [place] Phone: tel: fax: Referral ID Status Reason Start Date Expiration Date Visits Re quested Visits Authorized [id number] Closed 11/17/2022 11/17/2023 1 1 Encounter Details Date Type Department Care Team (Late st Contact Info) Description 11/08/2022 Orders Only [facility] MEDICINE [address] [place], [place] [phone] Sherry Ward MD [address] [place], [place] [phone] Vertigo (Primary Dx); Ischemic heart disease; Chronic [...] hypertension documented in this encounter Care Teams Water Plumber Relationship Specialty Start Date End Date Sherry Ward MD [address] [place] [address] PCP - General Family Medicine 11/20/18 12/17/23 Robe Parker, Gabby [address] [place] [address] Pharmacist Internal Medicine 06/15/23 documented as of this encounter
--- OUTSIDE RECORDS SUMMARY | 2025-08-15 12:56 | XMS_ITS | Encounter Summary ---
Author Organization [facility] Address [address] [facility] [address] [place] [address] Phone Care Team Providers Care Director Digital Sales Name Role Phone Joycelyn Brothers DO Primary Care Provider Ema ilva Encounter Details Date Type Department Care Team (Late st Contact Info) Description 05/29/2021 Orders Only [facility] [address] [place] [address] [place] [phone] Alex Garcia MD Chronic kidney disease stage [...] documented in this encounter Care Teams Director Digital Sales Relationship Specialty Start Date End Date Joycelyn Brothers DO PCP - General 11/30/20 documented as of this encounter
--- OUTSIDE RECORDS SUMMARY | 2025-08-15 12:56 | XMS_ITS | Encounter Summary ---
Author Organization [employer] Address [address] [facility] 7t [place] [address] Care Team Providers Care Glass Beveller Name Role Phone Robe Parker PharmD Unavailable [phone] Reason for Visit * Reason Comments Med Refill Encounter Details Date Type Department Care Team ([facility] st Contact Info) Description 09/26/2024 Refill [facility] MEDICINE [address] [place] [address] Sherry Ward MD [address] [place], [place] [phone] Dyslipidemia Social History Tobacco Use Types Packs/Day [...] hyperlipidemia documented in this encounter Care Teams Glass Beveller Relationship Specialty Start Date End Date Robe Parker PharmD [address] [place] [address] Pharmacist Internal Medicine 06/15/23 documented as of this encounter
--- OUTSIDE RECORDS SUMMARY | 2025-08-15 12:56 | XMS_ITS | Encounter Summary ---
Author Organization [employer] Address [address] [facility] 7t [place] [address] Care Team Providers Care Natural Resources Manager Name Role Phone Sherry Ward MD Primary Care Provider Robe Parker PharmD Unavailable [phone] Encounter Details Date Type Department Care Team (Late st Contact Info) Description 11/02/2023 Orders Only [facility] MEDICINE [address] [place], [place] [phone] Sherry Ward MD [address] [place], [place] [phone] Social History Tobacco Use Types Packs/Day Years [...] on filedocumented in this encounter Care Teams Natural Resources Manager Relationship Specialty Start Date End Date Sherry Ward MD [address] [place] [address] PCP - General Family Medicine 11/20/18 12/17/23 Robe Parker, PharmD [address] [place] [address] Pharmacist Internal Medicine 06/15/23 documented as of this encounter
--- OUTSIDE RECORDS SUMMARY | 2025-08-15 12:56 | XMS_ITS | Encounter Summary ---
Author Organization [employer] Address [address] [facility] 7t [place] [address] Care Team Providers Care Bond Runner Name Role Phone Robe Parker PharmD Unavailable [phone] Reason for Visit * Reason Comments Med Refill Encounter Details Date Type Department Care Team ([facility] st Contact Info) Description 05/07/2024 Refill [facility] MEDICINE [address] [place] [address] Sherry Ward MD [address] [place], [place] [phone] Social History Tobacco Use Types Packs/Day Years [...] on filedocumented in this encounter Care Teams Bond Runner Relationship Specialty Start Date End Date Robe Parker PharmD [address] [place] [address] Pharmacist Internal Medicine 06/15/23 documented as of this encounter
--- OUTSIDE RECORDS SUMMARY | 2025-08-15 12:56 | XMS_ITS | Encounter Summary ---
Author Organization [employer] Address [address] [facility] 7t [place] [address] Care Team Providers Care Retirement Benefits Specialist Name Role Phone Robe Parker PharmD Unavailable [phone] Reason for Visit * Reason Comments Med Refill Encounter Details Date Type Department Care Team ([facility] st Contact Info) Description 03/08/2024 Refill [facility] MEDICINE [address] [place] [address] Roopa Unger ANP [address] [place] [address] Social History Tobacco Use Types Packs/Day Years [...] on filedocumented in this encounter Care Teams Retirement Benefits Specialist Relationship Specialty Start Date End Date Robe Parker PharmD [address] [place] [address] Pharmacist Internal Medicine 06/15/23 documented as of this encounter
--- OUTSIDE RECORDS SUMMARY | 2025-08-15 12:56 | XMS_ITS | Encounter Summary ---
Author Organization [facility] Address [address] [place] [address] Phone Care Team Providers Care Director Software Name Role Phone Joycelyn Brothers DO Primary Care Provider Unava ilable Encounter Details Date Type Department Care Team (Late st Contact Info) Description 11/08/2022 Telephone [facility] [address] [place] [address] Alex Garcia MD Social History [...] She also wants to add that his public transit bus driver started him on digoxin 0.1 mg daily. Please advise Thank you CB# [phone] documented in this encounter Plan of Treatment Not on file documented as of this encounter Visit Diagnoses Not on filedocumented in this encounter Care Teams Director Software Relationship Specialty Start Date End Date Joycelyn Brothers DO PCP - General 11/30/20 documented as of this encounter
--- OUTSIDE RECORDS SUMMARY | 2025-08-15 12:56 | XMS_ITS | Patient Health Record ---
Author Organization [facility] Address [address] [place] [address] Care Team Providers Care Core Dropper Name Role Phone Joycelyn Brothers M.D. 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 [address] [place] [address] [id number] SEMAJ PATTERSON Self - patient is the insured Medical (General) History Medical History History ICD Code Kidney disease-followed by Dr. Tae johansen HTN Denies [place],CVA,Lung disease Hyperlipidemia Rx'd for H.pylori in 06/2012 [...]
--- OUTSIDE RECORDS SUMMARY | 2025-08-15 12:56 | XMS_ITS | Encounter Summary ---
Author Organization [employer] Address [address] [facility] 7t [place] [address] Care Team Providers Care Jig And Fixture Builder Name Role Phone Robe Parker PharmD Unavailable [phone] Reason for Visit * Reason Comments Med Refill Encounter Details Date Type Department Care Team ([facility] st Contact Info) Description 01/11/2024 Refill [facility] MEDICINE [address] [place] [address] Jaqui Chowdary MD [address] [place], [place] [phone] Social History Tobacco Use Types Packs/Day Years [...] on filedocumented in this encounter Care Teams Jig And Fixture Builder Relationship Specialty Start Date End Date Robe Parker PharmD [address] [place] [address] Pharmacist Internal Medicine 06/15/23 documented as of this encounter
--- OUTSIDE RECORDS SUMMARY | 2025-08-15 12:56 | XMS_ITS | Encounter Summary ---
Author Organization [employer] Address [address] [place] [address] 7t [place] [address] Care Team Providers Care Small Engine Mechanic Name Role Phone Sherry Ward MD Primary Care Provider [phone] Robe Parker PharmD Unavailable [phone] Encounter Details Date Type Department Care Team (Late st Contact Info) Description 01/23/2023 Orders Only [facility] MEDICINE [address] [place] [address] Nivia Serrato MD [address] [place], [place] [phone] Hyperkalemia (Primary Dx) Social History Tobacco Use [...] Hyperpotassemia documented in this encounter Care Teams Small Engine Mechanic Relationship Specialty Start Date End Date Sherry Ward MD [address] [place] [address] [phone] PCP - General Family Medicine 11/20/18 12/17/23 Robe Parker, PharmD [address] [place] [address] Pharmacist Internal Medicine 06/15/23 documented as of this encounter
--- OUTSIDE RECORDS SUMMARY | 2025-08-15 12:56 | XMS_ITS | Encounter Summary ---
Author Organization [employer] Address [address] [facility] 7t [place] [address] Care Team Providers Care Pecan Huller Name Role Phone Robe Parker PharmD Unavailable [phone] Reason for Visit * Reason Comments Med Refill Encounter Details Date Type Department Care Team ([facility] st Contact Info) Description 03/08/2024 Refill [facility] MEDICINE [address] [place] [address] Sherry Ward MD [address] [place] [employer], [place] [phone] Neuropathic pain Social History Tobacco Use Types [...] pain documented in this encounter Care Teams Pecan Huller Relationship Specialty Start Date End Date Robe Parker PharmD [address] [place] [address] Pharmacist Internal Medicine 06/15/23 documented as of this encounter
--- OUTSIDE RECORDS SUMMARY | 2025-08-15 12:56 | XMS_ITS | Encounter Summary ---
Author Organization [employer] Address [address] [facility] 7t [place] [address] Care Team Providers Care Metal Spinner Name Role Phone Sherry Ward MD Primary Care Provider [phone] Robe Parker PharmD Unavailable Encounter Details Date Type Department Care Team (Late st Contact Info) Description 11/04/2022 Orders Only [facility] MEDICINE [address] [place] [address] Sharon Ko, RN Social History Tobacco Use [...] on filedocumented in this encounter Care Teams Metal Spinner Relationship Specialty Start Date End Date Sherry Ward MD [address] [place] [address] PCP - General Family Medicine 11/20/18 12/17/23 Robe Parker, IrisD [address] [place] [address] Pharmacist Internal Medicine 06/15/23 documented as of this encounter
== END 2025-08-15 11:42 | disposition home or self-care (01) ==
LOC: HO.ACS 11:11
PROVIDERS: PCP Physician Assistant; Visit Provider Internal Medicine Medical Oncology
DX: Z79.01 Long term (current) use of anticoagulants (principal)

== ENCOUNTER → 2025-08-15 11:11 | Outpatient (BNVA) | payer OTHER, SELFPAY | PROVIDERS: PCP Physician Assistant; Visit Provider Internal Medicine Medical Oncology | DX: Z51.81 Encounter for therapeutic drug level monitoring (principal); Z79.01 Long term (current) use of anticoagulants | CPT/HCPCS: 85610; 99211 ==

== ENCOUNTER → 2025-08-20 23:59 | Outpatient (BNV) | payer OTHER, SELFPAY | PROVIDERS: PCP Physician Assistant; Visit Provider Internal Medicine Nephrology | DX: N18.6 End stage renal disease (principal) | CPT/HCPCS: 90962 ==

== ENCOUNTER 2025-08-29 11:47 | Outpatient (AMB) | payer OTHER, SELFPAY ==
--- NOTE | 2025-08-29 11:44 | MHC.OFFVISCO ---
Intake Intake Visit Reasons: Anticoagulation Allergies lisinopril (LISINOPRIL) Allergy (Severe, Verified 08/29/25 11:10) ACUTE KIDNEY INJURY oxycodone (Percocet) Allergy (Intermediate, Verified 08/29/25 11:10) agitation codeine (CODEINE) Allergy (Unknown, Verified 08/29/25 11:10) AGITATION morphine (MORPHINE) Allergy (Unknown, Verified 08/29/25 11:10) AGITATION, confusion dicyclomine (From A-Spas (dicyclomine)) Adverse Reaction (Intermediate, Verified 08/29/25 11:10) Confusion From PERCOCET Allergy (Unknown, Uncoded 08/15/25 11:16) AGITATION Medication List - Last Reconciled 08/29/25 by Elma Choudhury RN amlodipine 5 mg PO DAILY 90 days atorvastatin 80 mg PO QAM cholecalciferol (vitamin D3) 25 mcg PO DAILY compression socks, large As directed febuxostat (Uloric) 40 mg PO DAILY fluticasone propionate 50 mcg/actuation 1 spray intranasal DAILY 30 days furosemide 40 mg PO QAM gabapentin 200 mg (2 x 100 mg) PO BEDTIME 30 days hydroxyzine HCl 25 mg PO BEDTIME 30 days meclizine 25 mg PO TID PRN 30 days metoprolol tartrate 50 mg See Protocol PO BID 90 days sodium zirconium cyclosilicate (Lokelma) 10 grams PO .3 times a week PRN warfarin 7.5 mg See Protocol PO MO warfarin 5 mg See Protocol PO SUTUWETHFRSA Nursing Note WARFARIN DOSE VERIFIED WITH PT. NO CP,SOB,DIET/MED CHANGES,FALLS OR SX OF BLEEDING. HOLD WARFARIN TODAY AND REDUCE TO 2.5MGM TOMORROW AND RECHECK INR IN 1 WEEK. DIETARY INSTRUCTION GIVEN. PCP NOTIFIED OF HIGH INR AND PLAN OF CARE(JANELLE) AT 11:45AM Anti-Coag Initial Assessment Social Hx Patient Tobacco Use Status: Former Tobacco user Tobacco use type: Cigarette alcohol intake: former Alcohol intake frequency: does not drink Coding Level of Care Code Est Patient Level 1 Diagnoses Current use of anticoagulant therapy Z79.01 Results AMB INR Fingerstick AMB INR Fingerstick 5.3 Last Edit by Elma Choudhury RN on 08/29/25 11:31 Assessment & Plan Assessment & Plan (1) Current use of anticoagulant therapy: Code(s): Z79.01 - roasterman (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
== END 2025-08-29 11:55 | disposition home or self-care (01) ==
LOC: HO.ACS 11:47
PROVIDERS: PCP Physician Assistant; Visit Provider Internal Medicine Medical Oncology
DX: Z79.01 Long term (current) use of anticoagulants (principal)

== ENCOUNTER 2025-08-29 11:47 | Outpatient (REF) | payer OTHER, SELFPAY ==
--- NOTE | ~2025-08-29 | XR_ITS ---
EXAMINATION: XR ABDOMEN 1 VIEW (KUB) HISTORY: R10.84 - Generalized abdominal pain COMPARISON: There are no prior studies available for comparison. FINDINGS: Two supine views of the abdomen are submitted. There is gaseous distention of the stomach. The bowel gas pattern is otherwise unremarkable. There is a moderate amount of stool throughout the colon. A rounded calcification in the right upper quadrant is compatible with a gallstone. There are no abnormal soft tissue masses. The bones are intact. XR/XR KUB IMPRESSION: 1. Gaseous distention of the stomach. 2. Moderate amount of stool throughout the colon. 3. Cholelithiasis. Electronically signed by: Jasson Pierre MD 08/29/2025 03:24 PM EDT
== END 2025-08-29 11:48 | disposition home or self-care (01) ==
LOC: HO.XRAY 11:47
PROVIDERS: Absent Provider Nurse Practitioner Family; PCP Physician Assistant; Visit Provider Internal Medicine Medical Oncology
DX: R10.84 Generalized abdominal pain (principal); K59.00 Constipation, unspecified; R14.0 Abdominal distension (gaseous); I48.0 Paroxysmal atrial fibrillation; Z51.81 Encounter for therapeutic drug level monitoring; Z79.01 Long term (current) use of anticoagulants
CPT/HCPCS: 74018; 99211; 99212

== ENCOUNTER 2025-08-29 14:04 | Outpatient (AMB) | payer OTHER, SELFPAY ==
[2025-08-29 14:11] VITALS: BP 130/90; PULSE 117; TEMP 36.2; O2SAT 94; BMI 29.1
--- NOTE | 2025-08-29 14:11 | MHC.PC.OV ---
Vital Signs 08/29/25 14:11 Height 5 ft 6 in Weight 180 lb 8 oz BMI 29.1 BP 130/90 H Blood Pressure Location Lt brachial Position Sitting Pulse 117 H Pulse Source Pulse Oximeter Temp 97.1 F Temp Source Temporal Artery Scan Pulse Oximetry (%) 94 Oxygen Delivery Method Room Air Intake Visit Reasons: trouble sleeping, abdominal pain coming and going Search Engine Optimization Manager Required: No Tour Production Supervisor: Present Accompanied by: Son Allergies lisinopril (LISINOPRIL) Allergy (Severe, Verified 08/29/25 14:12) ACUTE KIDNEY INJURY oxycodone (Percocet) Allergy (Intermediate, Verified 08/29/25 14:12) agitation codeine (CODEINE) Allergy (Unknown, Verified 08/29/25 14:12) AGITATION morphine (MORPHINE) Allergy (Unknown, Verified 08/29/25 14:12) AGITATION, confusion dicyclomine (From A-Spas (dicyclomine)) Adverse Reaction (Intermediate, Verified 08/29/25 14:12) Confusion From PERCOCET Allergy (Unknown, Uncoded 08/29/25 14:12) AGITATION Tobacco use date assessed: 08/29/25 Fall risk assessment: No Falls in past year Last assessed Fall Risk: 08/29/25 Dental Screening Dental Screen Date: 08/29/25 HPI HPI Comments History of Present Illness Details 75 y/o Male patient who presents to the clinic today with c/o Abdominal pain associated with bloating and constipation. Reports abdominal cramping after defecation. Denies rectal bleeding or blood in stools. Reports Normal bowel movements - once a day everyday. Denies nausea or vomiting. Reports difficulty breathing with SOB when lying flat at night - he is not able to fall asleep due to this. [facility] Medical History (Updated 08/29/25 @ 14:59 by Cecilia Bo NP) Abdominal bloating Generalized abdominal pain HTN (hypertension) Allergies Sinus bradycardia Pre-op examination Annual physical exam History of TIA (transient ischemic attack) Gout Personal history of nicotine dependence Chronic kidney disease, stage 3 unspecified Benign prostatic hyperplasia with lower urinary tract symptoms CAD (coronary artery disease) Paroxysmal atrial fibrillation Surgical History Stented coronary artery Hx of colonoscopy Hx of cardiac cath Hx of cystoscopy History of esophagogastroduodenoscopy (EGD) Hx of cataract extraction Family History Mother CAD (coronary artery disease) Diabetes HTN (hypertension) Father CAD (coronary artery disease) Diabetes HTN (hypertension) Social History Household Members: None Housing: Apartment Do you presently have visiting nurse or other home services: No Alcohol intake: former Patient Tobacco Use Status: Former Tobacco user Tobacco use type: Cigarette Years Smoked: 40 +/- e-Cigarette/Vaping Use: Never Used Second Hand Smoke Exposure: No service: No Current occupational status: retired and disabled Cognitive needs: No Hearing needs: No Vision needs: Yes Questionnaire Thrive Questionnaire Date Thrive assessed: 03/25/25 I am a: Patient What is your living situation today?: I have a steady place to live Within the past 12 months, did the food you bought not last and you didn't have the money to get more?: I choose not to answer this question Within the past 12 months, did you worry whether your food would run out before you got money to buy more?: I choose not to answer this question Do you have trouble paying for medicines?: No Do you have trouble getting transportation to medical appointments?: I choose not to answer this question Do you have trouble paying your heating and electricity bill?: I choose not to answer this question Do you have trouble taking care of your child, family member or friend?: I choose not to answer this question Do you have trouble with day-to-day activities such as bathing, preparing meals, shopping, managing finances, etc.?: I choose not to answer this question Are you currently unemployed and looking for a job?: I choose not to answer this question Are you interested in more education?: I choose not to answer this question Please select the resources that you would like help with: None Currently or been in a relationship where the following occur: I choose not to answer THRIVE Score: 0 AUDIT C Alcohol Use Questionnaire (AUDIT-C) 1. How often do you have a drink containing alcohol?: Never 3. How often do you have six or more drinks on one occasion?: Never Total Score: 0 Score Reviewed/Action Taken: No FAUSTINA-7 AMB Questionnaire FAUSTINA-7 Date FAUSTINA - 7 assessed: 03/27/25 Source: Developed by Drs. Jasson Ramos, Alanna Allen, Wai Tanner and colleagues, with an educational marcell from [employer]. Review of Systems Const All systems reviewed & are unremarkable except as noted in HPI and below Physical exam (Primary Care) Vital Signs: Last Vital Signs Temp 97.1 F 08/29/25 14:11 Pulse 117 H 08/29/25 14:11 BP 130/90 H 08/29/25 14:11 Pulse Ox 94 08/29/25 14:11 Oxygen Delivery Method Room Air 08/29/25 14:11 BMI result Body Mass Index 29.1 Tobacco/Smoking Status: Tobacco use Status Tobacco use date assessed 08/29/25 08/29/25 14:14 Patient Tobacco Use Status Former Tobacco user 08/29/25 14:14 Tobacco use type Cigarette 08/29/25 14:14 e-Cigarette/Vaping Use Never Used 08/29/25 14:14 Thrive Assessment: Date of Thrive Assessment Date Thrive assessed 03/25/25 08/29/25 14:14 Currently or been in a relationship where the following occur: I choose not to answer Const General: no acute distress Nutritional Appearance: overweight Orientation/consciousness: patient oriented x3 Resp Effort & Inspection: normal respiratory effort Cardio Heart sounds: S1 normal heart sound present and S2 normal heart sound present GI Inspection: Yes Abdominal panniculus present Palpation (GI): Soft to palpation, not firm, Tenderness to palpation present (GI) (Generalized Tenderness. ), no guarding and not rigid Auscultation: Hypoactive bowel sounds present Rectal Exam - Male: Yes deferred Neuro General: patient oriented x3, gait normal and moves all extremities Results AMB INR Fingerstick AMB INR Fingerstick 5.3 Last Edit by Elma Choudhury RN on 08/29/25 11:31 Coding Level of Care Code Est Pt Level 4 (35180) Diagnoses Generalized abdominal pain R10.84 Constipation K59.00 Time Spent (min) 20 Assessment & Plan Assessment & Plan (1) Generalized abdominal pain: Code(s): R10.84 - Generalized abdominal pain Category: Medical Plan: DDx's: SBO vs Gastritis vs GERD vs Constipation Ordered KUB to r/o any diseases. (2) Constipation: Code(s): K59.00 - Constipation, unspecified Category: Medical Plan: Ordered Famotidine for bedtime. Ordered Stool softener Ordered Simethicon for Acid reduction. Avoid Spicy and oily foods F/U with PCP for Possible GI referral. Orders: Orders XR KUB Today R10.84 - Generalized abdominal pain Medications: New famotidine 10 mg PO BEDTIME 10 tabs 0RF 10 days R10.84 - Generalized abdominal pain, R14.0 - Abdominal distension (gaseous) sennosides-docusate sodium 8.6-50 mg (Colace 2-In-1) 1 tab-cap PO BEDTIME 30 tabs 0RF constipation K59.00 - Constipation, unspecified, R10.84 - Generalized abdominal pain simethicone (Gas Relief (simethicone)) 80 mg PO BID-QID PRN 30 tabs 0RF abdominal distention R14.0 - Abdominal distension (gaseous)
== END 2025-08-29 15:19 | disposition home or self-care (01) ==
LOC: HO.HMCH 14:05
PROVIDERS: PCP Physician Assistant; Visit Provider Nurse Practitioner Family
DX: R10.84 Generalized abdominal pain (principal); K59.00 Constipation, unspecified

== ENCOUNTER → 2025-08-29 14:58 | Outpatient (BNV) | payer OTHER, SELFPAY | PROVIDERS: Absent Provider Nurse Practitioner Family; PCP Physician Assistant; Visit Provider Radiology Diagnostic Radiology | DX: K80.20 Calculus of gallbladder without cholecystitis without obstruction (principal); R41.0 Disorientation, unspecified | CPT/HCPCS: 74018 ==

== ENCOUNTER 2025-09-03 04:21 | Inpatient (IN) | payer OTHER, SELFPAY ==
[2025-09-03] VITALS (13 sets, daily range): BP systolic 146–176; BP diastolic 87–120; PULSE 92–109; RESP 17–32; TEMP 36.5–37; O2SAT 91–98; BMI 28.7
--- NOTE | ~2025-09-03 | IR_ITS ---
CLINICAL HISTORY: End-stage renal disease. The patient presents to interventional radiology for placement of a temporary central venous catheter for hemodialysis. PROCEDURES: 1. Real-time ultrasound-guided access into the right internal jugular vein after documentation of selected vessel patency, and permanent imaging storing in the patient record. 2. Placement of a 12 [place] by 24 cm , dual-lumen hemodialysis catheter. Clinician: Ventura Mendiola NP MEDICATIONS: -Lidocaine 1% 10 mL SQ. -Antibiotics: Emergency department discretion -For additional details, please see nursing flowsheet. COMPLICATIONS: None. ESTIMATED BLOOD LOSS: <5 ml SPECIMENS: None FLUOROSCOPY TIME: 0.4 min MODERATE SEDATION TIME: Not applicable PROCEDURE NOTE: The procedure, risks, benefits, and alternatives were carefully explained to patient, and written informed consent was obtained. The patient was placed supine on the fluoroscopy table. A timeout was performed. The right neck and chest was prepped and draped in usual sterile fashion. Local anesthesia was administered to the access site with lidocaine. Under ultrasound guidance, the right internal jugular vein was accessed with a 5 Fr micropuncture set. A 0.035 in wire was advanced to the IVC to maintain access. The tract in the vein was dilated and the catheter was introduced over the wire. The catheter was tested, flushed, and sutured to the skin with its tip in the high right atrium. A permanent fluoroscopic image of the chest was saved to PACS. The catheter ports were packed with heparin per routine protocol. The patient was stable after the procedure and was transferred to the post anesthesia care unit. This procedure was performed under moderate sedation with a dedicated nurse and continuous monitoring of vital signs. FINDINGS: 1. Patent right internal jugular vein. 2. Placement of a , dual-lumen hemodialysis catheter as above. 3. Catheter flushes and aspirates very well with a 10 mL syringe. No pneumothorax. IR/IR cvc insert central tunnel IMPRESSION: Placement of a temporary hemodialysis catheter in the right internal jugular vein. PLAN: -The catheter may be used immediately. This procedure was performed by Ventura Mendiola NP, and directly supervised by Devante Aquino M.D.. Electronically signed by: Devante Aquino MD 09/09/2025 10:40 AM EDT Workstation: [id number]
--- NOTE | ~2025-09-03 | CT_ITS ---
CLINICAL HISTORY: abd distention, pain CT abdomen and pelvis without contrast Comparison: 10/02/[address] and 06/10/[address] Findings: Progressive (relative to prior chest CT) moderate right and small left pleural effusions (on the prior study trace to small bilateral pleural effusions were seen). Redemonstration of mild pancreatic atrophy. Gallstone. Left more than right at least mildly small/atrophied kidneys. Simple left renal cyst. No hydronephrosis or urinary tract stone. No bowel obstruction, pneumoperitoneum, or pneumatosis. Colonic diverticulosis without diverticulitis. Small uncomplicated bilateral both hernias. Fusiform abdominal aortic aneurysm (most conspicuous infrarenally) measuring up to 38 x 40 mm in the axial plane as before. Ectatic right common iliac artery measuring up to 18 mm in width as before. Prominent prostate measuring 43 mm in width. Normal appendix. Spinal degenerative changes. No acute fracture. Rest of the abdominopelvic viscera are unremarkable. IMPRESSION: 1. Progressive (relative to prior chest CT) moderate right and small left pleural effusions (on the prior study trace to small bilateral pleural effusions were seen). 2. Gallstone. 3. Nonprogressive fusiform abdominal aortic aneurysm. 4. No bowel obstruction. This document has been electronically signed by: Lucia Ness MD on 09/03/2025 10:26:35
--- NOTE | ~2025-09-03 | XR_ITS ---
CLINICAL HISTORY: sob 1 view chest x-ray Comparison: 07/23/2025 Findings: Questionable pulmonary vascular congestion. Correlate clinically. Mild hazy bibasilar atelectasis/infiltrates. No significant change in cardiomediastinal silhouette and mild blunting of the left lateral costophrenic recess. No acute fracture. Small mineralized density projecting in the vicinity of the right glenohumeral joint likely due to an intra-articular body. IMPRESSION: Questionable pulmonary vascular congestion. Correlate clinically. Mild hazy bibasilar atelectasis/infiltrates. This document has been electronically signed by: Lucia Ness MD on 09/03/2025 05:48:42
--- NOTE | ~2025-09-03 | IR_ITS ---
PROCEDURE: IR INSERTION OF TUNNEL CATHETER CLINICAL INFORMATION: Renal failure COMPARISON: Previous temporary dialysis catheter placement August 25, 2025 TECHNIQUE: Procedure risks and benefits including bleeding infection and pneumothorax were discussed at time of temporary dialysis catheter placement September 04, 2025. All elements of maximal sterile barrier technique followed including use of cap, mask, sterile gown, sterile gloves, a sterile full body drape and hand hygiene. Also followed skin preparation with 2% chlorhexidine for cutaneous antisepsis, and sterile ultrasound preparation with sterile gel and probe cover when applicable. The right neck and upper chest and existing dialysis catheter were prepped and draped in usual sterile fashion. Both ports of the existing dialysis catheter were aspirated. Skin and soft tissues in the neck surrounding the catheter were anesthetized with 1% lidocaine plain. The right upper anterior chest was anesthetized with 1% lidocaine plain. A small incision was made. Subcutaneous tunnel from the chest to the neck incision was anesthetized with 1% lidocaine plain. Using a tunneler, a 14.5 [place] 23 cm in length [place] [employer] permacath was tunneled from the chest in the neck incision. An 035 guidewire was advanced through the existing dialysis catheter into the IVC. Following serial dilatation and through the peel-away sheath, permacath was advanced centrally. Catheter tip is at the cavoatrial junction. Conscious sedation was provided by registered nurse under my direct supervision with continuous hemodynamic monitoring. Patient received fentanyl 12.5 mcg intravenously during the procedure. Total sedation time was 20 minutes. Fluoroscopy time was 0.5 minutes. Patient dose: 5.2 mGy. FINDINGS: There is a right internal jugular 14.5 Malay 23 cm in length glide catheter permacath with catheter tip projecting over the cavoatrial junction. IR/IR cvc insert central tunnel IMPRESSION: Right internal jugular permacath placement. Electronically signed by: Elma Page MD 09/10/2025 12:22 PM EDT
--- NOTE | 2025-09-03 04:48 | ECG_ITS ---
Test Reason : sob Blood Pressure : */* mmHG Vent. Rate : 111 BPM Atrial Rate : 326 BPM P-R Int : * ms QRS Dur : 82 ms QT Int : 340 ms P-R-T Axes : * -6 44 degrees QTcB Int : 462 ms Afib with RVR Abnormal ECG When compared with ECG of 23-Jul-2025 14:18, No significant changes seen Referred By: Generic ED Physician Electronically Signed By: Artie Huntley
--- NOTE | 2025-09-03 04:55 | PC.NURSE ---
charge aide aware of sx and sats 91% on RA, pt will be going to ed19.
[2025-09-03 05:20] LABS: MANUAL DIFF FLAG NO
[2025-09-03 05:21] LABS: Hematocrit 32.9 % (42.0-52.0); Hemoglobin 10.0 g/dl (14.0-18.0); Imm Gran Abs Auto 0.03 X10*3/uL (0.00-0.03); Imm Gran Pct Auto 0.4 % (0.0-0.4); Lymphocytes Absolute Auto 0.6 X10*3/uL (1.2-4.9); Mean Corpuscular HGB Conc 30.4 g/dl (31.0-36.0); Mean Corpuscular Hemoglobin 26.7 pg (27.0-33.0); Mean Corpuscular Volume 87.7 fL (80.0-98.0); NRBC Abs Auto 0.000 X10*3/uL (0.0-0.012); NRBC Pct Auto 0.0 /100WBC (0.0-0.2); Platelet Count 175 X10*3/uL (160-400); Red Blood Count 3.75 X10*6/uL (4.60-5.80); White Blood Count 7.2 X10*3/uL (4.8-10.8)
[2025-09-03 05:29] LABS: INTERNATIONAL NORM RATIO 3.5 (0.9-1.1); Prothrombin Time 39.8 SEC (10.9-12.4)
--- NOTE | 2025-09-03 05:32 | ED.GENADULT ---
HPI - General Adult General Chief complaint: General Medical Stated complaint: abd pain, SoB Time Seen by Provider: 09/03/25 05:32 Source: patient, family, old records reviewed and amusement centre manager Mode of arrival: EMS Limitations: language barrier History of Present Illness ED Provider: Dr. Danielle Suarez HPI narrative: 75-year-old male with a history of CKD stage 5, hypertension, CHF, atrial fibrillation on warfarin presenting with shortness of breath and weakness ongoing for the last 4 days or so. Patient states that he stopped taking his medications except for warfarin and metoprolol 3 days ago because he was not feeling good and forgot to take them. Admits to worsening swelling in his legs, worsening orthopnea and dyspnea with exertion. No reported fever but does have a cough that is productive of white sputum. Denies vomiting but has felt nauseous. Admits to chronic constipation which is unchanged. No known sick contacts or travel. Related Data Home Medications ?Medication ?Instructions ?Recorded ?Confirmed warfarin 5 mg tablet 7.5 mg PO MO 10/02/24 08/29/25 Previous Rx's ?Medication ?Instructions ?Recorded compression socks, large #2 ea 06/24/24 atorvastatin 80 mg tablet 80 mg PO QAM #90 tabs 10/06/24 meclizine 25 mg tablet 25 mg PO TID PRN dizziness 30 days 01/29/25 #90 tabs febuxostat 40 mg tablet (Uloric) 40 mg PO DAILY #30 tabs 05/28/25 furosemide 40 mg tablet 40 mg PO QAM #90 tabs 07/07/25 metoprolol tartrate 50 mg tablet 50 mg PO BID 90 days #180 tabs 07/07/25 amlodipine 5 mg tablet 5 mg PO DAILY 90 days #90 tabs 07/09/25 hydroxyzine HCl 25 mg tablet 25 mg PO BEDTIME 30 days #30 tabs 07/09/25 fluticasone propionate 50 1 spray intranasal DAILY 30 days 07/27/25 mcg/actuation nasal #16 grams spray,suspension warfarin 5 mg tablet 5 mg PO SUTUWETHFRSA #90 tabs 07/27/25 gabapentin 100 mg capsule 200 mg (2 x 100 mg) PO BEDTIME 30 07/30/25 days #60 caps cholecalciferol (vitamin D3) 25 25 mcg PO DAILY #90 caps 08/06/25 mcg (1,000 unit) capsule sodium zirconium cyclosilicate 5 10 g PO .3 times a week PRN high 08/07/25 gram oral powder packet (Lokelma) potassium #11 ea famotidine 10 mg tablet 10 mg PO BEDTIME 10 days #10 tabs 08/29/25 sennosides 8.6 mg-docusate sodium 1 tab-cap PO BEDTIME constipation 08/29/25 50 mg tablet (Colace 2-In-1) #30 tabs simethicone 80 mg chewable tablet 80 mg PO BID-QID PRN abdominal 08/29/25 (Gas Relief (simethicone)) distention #30 tabs Allergies Allergy/AdvReac Type Severity Reaction Status Date / Time lisinopril (LISINOPRIL) Allergy Severe ACUTE Verified 09/03/25 04:46 KIDNEY INJURY oxycodone (Percocet) Allergy Intermediate agitation Verified 09/03/25 04:46 codeine (CODEINE) Allergy Unknown AGITATION Verified 09/03/25 04:46 morphine (MORPHINE) Allergy Unknown AGITATION, Verified 09/03/25 04:46 confusion dicyclomine (From A-Spas AdvReac Intermediate Confusion Verified 09/03/25 04:46 (dicyclomine)) From PERCOCET Allergy Unknown AGITATION Uncoded 09/03/25 04:46 Review of Systems Review of Systems: as per HPI, full review of systems performed and negative but for the above mentioned pertinent positives and negatives. [facility] Past Medical History Medical History Abdominal bloating Generalized abdominal pain HTN (hypertension) Allergies Sinus bradycardia Pre-op examination Annual physical exam History of TIA (transient ischemic attack) Gout Personal history of nicotine dependence Chronic kidney disease, stage 3 unspecified Benign prostatic hyperplasia with lower urinary tract symptoms CAD (coronary artery disease) Paroxysmal atrial fibrillation Surgical History Stented coronary artery Hx of colonoscopy Hx of cardiac cath Hx of cystoscopy History of esophagogastroduodenoscopy (EGD) Hx of cataract extraction Family History Family History Mother CAD (coronary artery disease) Diabetes HTN (hypertension) Father CAD (coronary artery disease) Diabetes HTN (hypertension) Social History Social History Household Members: None Housing: Apartment Do you presently have visiting nurse or other home services: No Alcohol intake: former Patient Tobacco Use Status: Former Tobacco user Tobacco use type: Cigarette Years Smoked: 40 +/- e-Cigarette/Vaping Use: Never Used Second Hand Smoke Exposure: No Advance Directives: No Advance Directives Information Provided: Yes Do you have a plan to hurt others: No Plan service: No Current occupational status: retired and disabled Cognitive needs: No Hearing needs: No Vision needs: Yes Physical Exam ED Exam Exam: GENERAL: Chronically ill-appearing, moderate respiratory distress. SKIN: Normal skin color for ethnicity, warm, dry, no rashes noted. HEENT: Normocephalic, atraumatic, no stridor, EOMI. NECK: Soft, supple, full ROM, midline structures nontender, no step-offs, no deformities, no lymphadenopathy. CHEST: Heart regular tachycardia, symmetric chest rise and fall. PULMONARY: Coarse lung sounds bilaterally, diminished at the bases, moderate respiratory distress with poor air movement, no wheezes. ABDOMINAL: Soft, protuberant nontender, quiet bowel sounds in all quadrants. : Deferred. MUSCULOSKELETAL: Normal tone, full range of motion, no deformities, 2+ peripheral edema bilaterally. NEURO: Alert and oriented to person, CN II through XII intact, no focal neurologic deficits. PSYCHIATRIC: Anxious affect, appropriate demeanor. Vital Signs: Vital Signs - 24 hr 09/03/25 04:38 09/03/25 07:40 09/03/25 08:04 Temperature 97.7 F 97.8 F Pulse Rate 106 H 98 Respiratory Rate 18 32 H Blood Pressure 166/106 H 176/120 H 163/101 H Pulse Oximetry 91 L 97 Oxygen Delivery Method Room Air Nasal Cannula Oxygen Flow Rate 3 BMI result Body Mass Index 28.7 Medications Administered Discontinued Medications Generic Name Dose Route Start Last Admin Trade Name Freq PRN Reason Stop Dose Admin Acetaminophen 650 mg 09/03/25 05:51 09/03/25 07:30 Acetaminophen 325 Mg Tablet PO 09/03/25 05:52 650 mg ONCE ONE Administration Furosemide 40 mg 09/03/25 06:18 09/03/25 07:40 Furosemide 40 Mg/4 Ml Vial IVPUSH 09/03/25 06:19 40 mg ONCE ONE Administration Protocol Ondansetron HCl 4 mg 09/03/25 05:51 09/03/25 07:50 Ondansetron Odt 4 Mg Tab.Rapdis TRANSLINGU 09/03/25 05:52 Not Given ONCE ONE Sodium Zirconium Cyclosilicate 5 gm 09/03/25 06:19 09/03/25 07:48 Sodium Zirconium Cyclosilicate 5 Gm Powd.Pack PO 09/03/25 06:20 5 gm ONCE ONE Administration Medical Decision Making Medical Decision Making [facility] Narrative: Patient presents today with chief complaint of shortness of breath. Differential diagnosis includes, but is not limited to, upper respiratory infection, pneumonia, COPD exacerbation, asthma exacerbation, CHF, pneumothorax, pleural effusion, pulmonary embolism, ACS. Broad-based work-up will be initiated to evaluate for etiology of patient's symptoms. Clinical picture consistent with CHF exacerbation. Patient's oxygen level is slightly low on room air and he does not wear oxygen at baseline. We will medicate with Lasix and admit to hospitalist for further care and evaluation. Patient understands and agrees with plan for admission. Admitted in guarded condition. Differential Diagnosis Differential Diagnoses: The differential diagnosis associated with the presentation includes (As above) Admission/Observation Consideration of admission/observation: Escalation of care including admission/observation considered Consult Healthcare Provider Management of the patient was discussed with: Hospitalist Lab Data [facility] Lab Attestation statement: I reviewed the patient's lab results. 09/03/25 05:15 09/03/25 05:15 Labs: Lab Results 09/03/25 Range/Units 05:15 WBC 7.2 (4.8-10.8) X10*3/uL RBC 3.75 L (4.60-5.80) X10*6/uL Hgb 10.0 L (14.0-18.0) g/dl Hct 32.9 L (42.0-52.0) % MCV 87.7 (80.0-98.0) fL MCH 26.7 L (27.0-33.0) pg MCHC 30.4 L (31.0-36.0) g/dl RDW 17.4 H (11.0-16.0) % Plt Count 175 (160-400) X10*3/uL MPV 11.0 (9.4-12.4) fL Immature Gran % (Auto) 0.4 (0.0-0.4) % Neut % (Auto) 75.5 H (45-73) % Lymph % (Auto) 7.7 L (20-40) % Wolfe % (Auto) 10.7 (2-11) % Eos % (Auto) 4.6 H (0-4) % Baso % (Auto) 1.1 (0-2) % Lymph # (Auto) 0.6 L (1.2-4.9) X10*3/uL Wolfe # (Auto) 0.8 (0.1-1.2) X10*3/uL Eos # (Auto) 0.3 (0.0-0.4) X10*3/uL Baso # (Auto) 0.1 (0.0-0.2) X10*3/uL Abs Immat Gran (auto) 0.03 (0.00-0.03) X10*3/uL Absolute Neuts (auto) 5.4 (2.0-8.3) x10*3/uL Absolute Nucleated RBC 0.000 (0.0-0.012) X10*3/uL Nucleated RBC % (auto) 0.0 (0.0-0.2) /100WBC PT 39.8 H D (10.9-12.4) SEC INR 3.5 H D (0.9-1.1) Sodium 142 (135-145) mmol/L Potassium 5.9 H (3.3-5.1) mmol/L Chloride 113 H (96-108) mmol/L Carbon Dioxide 18 L (22-29) mmol/L Anion Gap 17 (12-20) BUN 104 H (9-16) mg/dL Creatinine 6.04 H* (0.5-1.4) mg/dL Estim Creat Clear Calc 10.5 Estimated GFR 9 Random Glucose 120 H (60-115) mg/dL Calcium 9.7 D (8.4-10.2) mg/dL Magnesium 2.2 (1.6-2.6) mg/dL Total Bilirubin 1.6 H (0.0-1.0) mg/dL AST 22 (5-37) U/L ALT 14 (0-40) U/L Alkaline Phosphatase 82 (39-117) U/L Troponin I High Sens 20.4 D (<3.5-35.0) ng/L NT-Pro-B Natriuret Pep 87983.8 H (<300) pg/mL Total Protein 7.2 (6.5-8.0) g/dL Albumin 4.2 (3.5-5.0) g/dL Lipase 72 (8-78) U/L COVID-19 (ROSIBEL) Negative (Negative) COVID-19 Clin Com See Note Influenza Type A (MARKIE) Negative (Negative) Influenza Type B (MARKIE) Negative (Negative) Influenza A & B Note See Note Independent Interpretation I performed an independent interpretation of an: EKG and Plain X-Ray Radiology Impression Discussion of test interpretation with radiology: I have reviewed the radiologist's reading. Independent Historian Clinical information obtained from an independent historian. History obtained from or confirmed by: EMS and Other (Son) External Record Review External record reviewed: Inpatient record Chronic Conditions Patient?s care impacted by: Diabetes, Hypertension and Other (CHF) Discharge Plan Discharge Clinical Impression: Acute exacerbation of congestive heart failure, Acute on chronic kidney failure, Acute abdominal pain, Noncompliance with medication regimen Patient Disposition: Admitted As Inpatient
[2025-09-03 05:41] LABS: Troponin-I High Sensitivity 20.4 ng/L (<3.5-35.0)
[2025-09-03 05:45] LABS: Alanine Aminotransferase 14 U/L (0-40); Albumin Level 4.2 g/dL (3.5-5.0); Alkaline Phosphatase 82 U/L (39-117); Anion Gap 17 (12-20); Aspartate Amino Transferase 22 U/L (5-37); Blood Urea Nitrogen 104 mg/dL (9-16); Calcium 9.7 mg/dL (8.4-10.2); Carbon Dioxide 18 mmol/L (22-29); Chloride 113 mmol/L (96-108); Creatinine Clr Calc Pharmacy 10.5; Estimated Glomerular Filt Rate 9; Lipase 72 U/L (8-78); Magnesium 2.2 mg/dL (1.6-2.6); Potassium 5.9 mmol/L (3.3-5.1); Sodium 142 mmol/L (135-145); Total Protein 7.2 g/dL (6.5-8.0)
[2025-09-03 05:55] LABS: COVID-19 Test Negative (Negative); IDNOW Serial# 55D5AD1C; IDNOW Serial# 58CA691E; Influenza B2 Negative (Negative)
--- OUTSIDE RECORDS SUMMARY | 2025-09-03 06:25 | XMS_ITS | Patient Health Record ---
Author Organization [facility] Address [address] [place] [address] Care Team Providers Care Digital Production Artist Name Role Phone Joycelyn Brothers M.D. Primary Care Provider Jasson Adams Unavailable [phone] Allergies Allergen (clinical drug ingredient) Drug/Non Drug [...] Problem Status W/U Status Risk Notes Problem Screening for malignant neoplasm of colon (166551772) Encounter for screening for malignant neoplasm of colon (Z12.11) Active confirmed Problem History of adenomatous polyp of colon (772740084) History of adenomatous polyp of colon (Z86.010) Active confirmed Problem Abdominal bloating (833877157) Abdominal bloating (R14.0) Active confirmed Problem Preprocedural examination (169341873357532) Preprocedural examination (Z01.818) Active confirmed Problem Gallstones (447861612) Gallstones (K80.20) Active confirmed Problem Borborygmus (019242280) Borborygmus (R19.8) Active confirmed Plan Of Treatment Future Test Test Name Order Date UPPER GI ENDOSCOPY 08/23/2012 COLONOSCOPY 08/23/2012 COLONOSCOPY 12/26/2018 Insurance Providers Payer Name Payer Address Payer Phone Subscriber Number Group Number Insured Name Patient Relationship to Insured Coverage Start Date Coverage End Date [facility] [address] [address] [place] [address] [id number] SEMAJ PATTERSON Self - patient is the [...]
--- OUTSIDE RECORDS SUMMARY | 2025-09-03 06:25 | XMS_ITS | Encounter Summary ---
Author Organization [employer] Address [address] [facility] [address] [place] [address] Care Team Providers Care Foreign Exchange Position Clerk Name Role Phone Robe Parker PharmD Unavailable [phone] Reason for Visit * Reason Comments Med Refill Encounter Details Date Type Department Care Team ([facility] st Contact Info) Description 05/07/2024 Refill [facility] [address] [place] [address] Sherry Ward MD [address] [place], [place] [phone] Social History Tobacco Use Types Packs/Day Years [...] on filedocumented in this encounter Care Teams Foreign Exchange Position Clerk Relationship Specialty Start Date End Date Robe Parker PharmD [address] [place] [address] Pharmacist Internal Medicine 06/15/23 documented as of this encounter
--- OUTSIDE RECORDS SUMMARY | 2025-09-03 06:25 | XMS_ITS | Encounter Summary ---
Author Organization [employer] Address [address] [facility] [address] [place] [address] Care Team Providers Care Train Controller Name Role Phone Robe Parker PharmD Unavailable [phone] Reason for Visit * Reason Comments Med Refill Encounter Details Date Type Department Care Team ([facility] st Contact Info) Description 09/26/2024 Refill [facility] [address] [place] [address] Sherry Ward MD [address] [place], [place] [phone] Dyslipidemia Social History Tobacco Use Types Packs/Day [...] hyperlipidemia documented in this encounter Care Teams Train Controller Relationship Specialty Start Date End Date Robe Parker PharmD [address] [place] [address] Pharmacist Internal Medicine 06/15/23 documented as of this encounter
--- OUTSIDE RECORDS SUMMARY | 2025-09-03 06:25 | XMS_ITS | Encounter Summary ---
Author Organization [employer] Address [address] [place] [address] [address] [place] [address] Care Team Providers Care Motor Coach Supervisor Name Role Phone Sherry Ward MD Primary Care Provider [phone] Robe Parker PharmD Unavailable [phone] Reason for Referral * Imaging (Routine) - Closed Specialty Diagnoses / Procedures Referred By Contac t Referred To Contact Diagnoses Vertigo Ischemic heart disease Chronic atrial fibrillation (CMS/HCC) (HCC) Essential hypertension Procedures Mr Brain w/ and w/o Contrast Sherry Ward MD [address] [place] [address] Phone: tel: fax: [facility] [place] MRI and CT Scan [address] [place] [address] Phone: tel: fax: Referral ID Status Reason Start Date Expiration Date Visits Re quested Visits Authorized [id number] Closed 11/17/2022 11/17/2023 1 1 Encounter Details Date Type Department Care Team (Late st Contact Info) Description 11/08/2022 Orders Only [facility] [address] [place], [place] [phone] Sherry Ward MD [address] [place], [place] [phone] Vertigo (Primary Dx); Ischemic heart disease; Chronic [...] ischemic heart disease Chronic atrial fibrillation (CMS/HCC) (HCC) Atrial fibrillation Essential hypertension Unspecified essential hypertension documented in this encounter Care Teams Motor Coach Supervisor Relationship Specialty Start Date End Date Sherry Ward MD [address] [place] [address] PCP - General Family Medicine 11/20/18 12/17/23 Robe Parker, Gabby [address] [place] [address] Pharmacist Internal Medicine 06/15/23 documented as of this encounter
--- OUTSIDE RECORDS SUMMARY | 2025-09-03 06:25 | XMS_ITS | Encounter Summary ---
Author Organization [employer] Address [address] [place] [address] 7t [place] [address] Care Team Providers Care Welder Gas Tungsten Arc Name Role Phone Sherry Ward MD Primary Care Provider [phone] Robe Parker PharmD Unavailable [phone] Encounter Details Date Type Department Care Team (Late st Contact Info) Description 01/23/2023 Orders Only [facility] [address] [place] [address] Nivia Serrato MD [address] [place], [place] [phone] Hyperkalemia (Primary Dx) Social History Tobacco Use [...] Hyperpotassemia documented in this encounter Care Teams Welder Gas Tungsten Arc Relationship Specialty Start Date End Date Sherry Ward MD [address] [place] [address] [phone] PCP - General Family Medicine 11/20/18 12/17/23 Robe Parker, PharmD [address] [place] [address] Pharmacist Internal Medicine 06/15/23 documented as of this encounter
--- OUTSIDE RECORDS SUMMARY | 2025-09-03 06:25 | XMS_ITS | Encounter Summary ---
Author Organization [employer] Address [address] [facility] 7t [place] [address] Care Team Providers Care Branch Associate Name Role Phone Robe Parker PharmD Unavailable [phone] Reason for Visit * Reason Comments Med Refill Encounter Details Date Type Department Care Team ([facility] st Contact Info) Description 03/08/2024 Refill [facility] 230 [place] [address] Roopa Unger ANP 230 [place] [address] Social History Tobacco Use Types Packs/Day Years [...] on filedocumented in this encounter Care Teams Branch Associate Relationship Specialty Start Date End Date Robe Parker PharmD [address] [place] [address] Pharmacist Internal Medicine 06/15/23 documented as of this encounter
--- OUTSIDE RECORDS SUMMARY | 2025-09-03 06:25 | XMS_ITS | Clinical Summary ---
Author Organization [facility] Address [address] [place] [address] Phone Care Team Providers Care Electroplating Technician Name Role Phone Joycelyn Brothers DO [...] adenomatous polyp of colon 01/26/2024 Tinnitus 03/21/2023 penitentiary current use of anticoagulant Overview (01/26/2024): Last Assessment & Plan: - indication: Atrial fibrilation - medication: warfarin - monitored by [facility] Anticoagulation Clinic - most recent INR 1.6 [...] 04/02/2021 Overview (01/26/2024): Last Assessment & Plan: -Career Information Specialist: Dr. Roland, last seen in 12/27/21 -Baseline SCr 2.4-2.8; eGFR 22-26, CrCl 28.5 -Most recent lab: 08/05/22 K 5.2, BUN 46, SCr 2.48; eGFR 26 -Avoid nephrotoxic drugs/substances and behaviors, including NSAIDs use. -Renal dose medications. Tinea pedis 04/30/2018 Ischemic heart disease 04/30/2018 Overview (01/26/2024): Last Assessment & Plan: -Manager Database Administration, Dr. Cain, seen on 11/10/22 -TIA in January 2018. Dx Afib. Started on Coumadin. -03/14/18 BRITTANY to distal RCA. Completed uninterrupted Plavix and Coumadin therapy for 1 year. Plan was to swithc Plavix to ASA. Pt is not on ASA or Plavix at this time because his CAD is stable per [facility]. - Last echo in 12/28/21: Normal LV function, EF 55-60%. slight decrease from last echo. mild GERD reguigitation -Continue current medications History of placement of stent for coronary arter y disease 04/30/2018 Chronic atrial fibrillation 02/09/2018 Overview (01/26/2024): Last Assessment & Plan: A-fib today, rate controlled. pt is usually asymptomatic whether he is bradycardia and tachycardia -his [facility] recommends rate control rather than rhythm control - Continue rate control with metoprolol tartrate 100 mg bid - Continue digoxin 125 mcg daily - Continue warfarin, which is monitored by [facility] Anticoagulation clinic -- Treatment Hx: --Previously on [...] LFT (on fibrate) On 08/05/22 stable Tubular adenomatous polyp of colon 02/25/2013 Overview (01/26/2024): Last Assessment [...] Years) Discontinued 03/21/2016, 06/18/2015, 04/14/[address] [place] [id number] [employer] ([id number]) [address] [place] [id number] [facility] ([id number]) Care Teams Electroplating Technician Relationship Specialty Start Date End Date Joycelyn Brothers DO PCP - General 11/30/20
--- OUTSIDE RECORDS SUMMARY | 2025-09-03 06:25 | XMS_ITS | Encounter Summary ---
Author Organization [employer] Address [address] [facility] 7t [place] [address] Care Team Providers Care Health Unit Clerk Name Role Phone Robe Parker PharmD Unavailable [phone] Reason for Visit * Reason Comments Med Refill Encounter Details Date Type Department Care Team ([facility] st Contact Info) Description 01/11/2024 Refill [facility] 230 [place] [address] Jaqui Chowdary MD 230 [place], [place] [phone] Social History Tobacco Use Types Packs/Day Years [...] on filedocumented in this encounter Care Teams Health Unit Clerk Relationship Specialty Start Date End Date Robe Parker PharmD [address] [place] [phone] Pharmacist Internal Medicine 06/15/23 documented as of this encounter
--- OUTSIDE RECORDS SUMMARY | 2025-09-03 06:25 | XMS_ITS | Encounter Summary ---
Author Organization [employer] Address 75 [facility] 7t [place] [address] Care Team Providers Care Pile Driving Technician Name Role Phone Robe Parker PharmD Unavailable [phone] Reason for Visit * Reason Comments Med Refill Encounter Details Date Type Department Care Team ([facility] st Contact Info) Description 03/08/2024 Refill [facility] 230 [place] [address] Sherry Ward MD 230 [place], [place] [phone] Neuropathic pain Social History Tobacco Use Types [...] pain documented in this encounter Care Teams Pile Driving Technician Relationship Specialty Start Date End Date Robe Parker PharmD [address] [place] [address] Pharmacist Internal Medicine 06/15/23 documented as of this encounter
--- OUTSIDE RECORDS SUMMARY | 2025-09-03 06:25 | XMS_ITS | Encounter Summary ---
Author Organization [facility] Address [address] [place] [address] Phone Care Team Providers Care Business Development Intern Name Role Phone Joycelyn Brothers DO Primary Care Provider Unava ilable Encounter Details Date Type Department Care Team (Late st Contact Info) Description 11/08/2022 Telephone [facility] [address] [place] [address] Alex Garcia MD Social History [...] She also wants to add that his gas line installer supervisor started him on digoxin 0.1 mg daily. Please advise Thank you CB# [phone] documented in this encounter Plan of Treatment Not on file documented as of this encounter Visit Diagnoses Not on filedocumented in this encounter Care Teams Business Development Intern Relationship Specialty Start Date End Date Joycelyn Brothers DO PCP - General 11/30/20 documented as of this encounter
--- OUTSIDE RECORDS SUMMARY | 2025-09-03 06:25 | XMS_ITS | Clinical Summary ---
Author Organization [employer] Address 75 [facility] 7t [place] [address] Care Team Providers Care Cooking Appliance Repair Technician Name Role Phone Robe Parker PharmD Unavailable [phone] Allergies Active Allergy Reactions Criticality Noted Date [...] Hyperkalemia,CKD (chronic kidney disease), stage IV (CMS/HCC) (HCC) MIX WITH WATER AND DRINK 1 PACKET (8.4 GRAMS) EVERY OTHER DAY 30 each 3 3 Active cetirizine (ZyrTEC) 5 MG tablet TAKE 1 TABLET BY MOUTH EVERY DAY 90 tablet 1 3 Active Lancets (OneTouch Delica Plus Spajqu16Z) [facility] Check blood sugar once daily 100 each 11 3 Active Blood Glucose Monitoring Suppl (ONE TOUCH ULTRA 2) w/Device kitIndications:T ype 2 diabetes mellitus with stage 4 chronic kidney disease, without long-term current use of insulin (HCC) 1 kit Once daily. 1 kit 3 [...] taking febuxostat 40 mg daily prescribed by burr grinder - continue febuxostat 40 mg daily - [...] - medication: warfarin - monitored by [facility] Anticoagulation Clinic - most recent INR 2.2 on 10/20/23 - continue current treatment plan Assessment & Plan (03/21/2023 11:52 AM EDT): - indication: Atrial fibrilation - medication: warfarin - monitored by [facility] Anticoagulation Clinic - most recent [...] annual surveillance Stage 4 chronic kidney disease (CMS/HCC) 021 Assessment & Plan (11/05/2023 4:30 PM EST): -Animal Care Specialist: Dr. Roland, last seen in Sep 2023 -Baseline SCr 2.0-2.4; eGFR 27-32, K 4.9-5.4 -Avoid nephrotoxic drugs/substances and behaviors, including NSAIDs use. -Renal dose medications. Assessment & Plan (03/13/2023 1:36 PM EDT): -Animal Care Specialist: Dr. Roland, last seen in 12/27/21 -Baseline SCr 2.4-2.8; eGFR 22-26, CrCl 28.5 -Most recent lab: 08/05/22 K 5.2, BUN 46, SCr 2.48; eGFR 26 -Avoid nephrotoxic drugs/substances and behaviors, including NSAIDs use. -Renal dose medications. Assessment & Plan (12/19/2022 1:28 PM EST): -Animal Care Specialist: Dr. Roland, last seen in 12/27/21 -Baseline SCr 2.4-2.8; eGFR 22-26, CrCl 28.5 -Most recent lab: 08/05/22 K 5.2, BUN 46, SCr 2.48; eGFR 26 -Avoid nephrotoxic drugs/substances and behaviors, including NSAIDs use. -Renal dose medications. Assessment & Plan (11/07/2022 4:55 AM EST): -Animal Care Specialist: Dr. Roland, last seen in 12/27/21 -Baseline SCr 2.4-2.8; eGFR 22-26, CrCl 28.5 -Most recent lab: 08/05/22 K 5.2, BUN 46, SCr 2.48; eGFR 26 -Avoid nephrotoxic drugs/substances and behaviors, including NSAIDs use. -Renal dose medications. Chronic interstitial nephritis 04/02/2021 Proteinuria 04/02/2021 Ischemic heart disease 04/30/2018 Assessment & Plan (11/05/2023 4:06 PM EST): -Business Education Teacher, Dr. Cain, seen in April 2023 -TIA [...] Assessment & Plan (03/13/2023 1:29 PM EDT): -Business Education Teacher, Dr. Cain, seen on 11/10/22 -TIA in January 2018. Dx Afib. Started on Coumadin. -03/14/18 BRITTANY to distal RCA. Completed uninterrupted Plavix and Coumadin therapy for 1 year. Plan was to swithc Plavix to ASA. Pt is not on ASA or Plavix at this time because his CAD is stable per rn homecare. - Last echo in 12/28/21: Normal LV function, EF 55-60%. slight decrease from last echo. mild GERD reguigitation -Continue current medications Assessment & Plan (12/25/2022 7:27 AM EST): -Business Education Teacher, Dr. Cain, seen on 11/10/22 -TIA in January 2018. Dx Afib. Started on Coumadin. -03/14/18 BRITTANY to distal RCA. Completed uninterrupted Plavix and Coumadin therapy for 1 year. Plan was to swithc Plavix to ASA. Pt is not on ASA or Plavix at this time because his CAD is stable per rn homecare. - Last echo in 12/28/21: Normal LV function, EF 55-60%. slight decrease from last echo. mild GERD reguigitation -Continue current medications Assessment & Plan (11/07/2022 5:02 AM EST): -Business Education Teacher, Dr. Cain, seen on 05/19/22 -TIA in January 2018. Dx Afib. Started on Coumadin. -03/14/18 BRITTANY to distal RCA. Completed uninterrupted Plavix and Coumadin therapy for 1 year. Plan was to swithc Plavix to ASA. Pt is not on ASA or Plavix at this time because his CAD is stable per rn homecare. - Last echo in 12/28/21: Normal LV function, EF 55-60%. slight decrease from last echo. mild GERD reguigitation -Continue current medications Status post insertion of bernadine g-eluting stent into right coronary artery for coronary artery disease 04/30/2018 Tinea pedis 04/30/2018 Chronic atrial fibrillation (CMS/HCC) 02/09/2018 Assessment & Plan (10/30/2023 6:26 AM EST): A-fib today, rate controlled. pt is usually asymptomatic whether he is bradycardia and tachycardia -his rn homecare recommends rate control rather than rhythm control - Continue rate control with metoprolol tartrate 100 mg bid - Continue digoxin 125 mcg daily - Continue warfarin, which is monitored by [facility] Anticoagulation clinic -- Treatment Hx: [...] he is bradycardia and tachycardia -his rn homecare recommends rate control rather than rhythm control - Continue rate control with metoprolol tartrate 100 mg bid - Continue digoxin 125 mcg daily - Continue warfarin, which is monitored by [facility] Anticoagulation clinic -- Treatment Hx: [...] he is bradycardiac and tachycardiac -his rn homecare recommends rate control rather than rhythm control - Continue rate control with metoprolol tartrate 100 mg bid - Continue digoxin 125 mcg daily - Continue warfarin, which is monitored by [facility] Anticoagulation clinic -- Treatment Hx: [...] 12/25/2014 Persistent microalbuminuria due to type 2 diabet es mellitus 12/25/2014 Type 2 diabetes mellitus 12/25/2014 Assessment [...] -Pt requests to be referred to [facility] where his son goes Assessment & Plan (12/25/2022 7:05 AM EST): -last colonoscopy in April [address] Logan Assessment & Plan (11/08/2022 10:08 AM EST): -last colonoscopy in April [address] 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 pt is usually asymptomatic wheter he is bradycardiac and tachycardiac -his rn homecare recommends rate control rather than rhythm control [...] -Continue Coumadin, which is monitored by [facility] anticoagulation clinic. -Holter monitor on 04/13/22 showed average HR 61 bpm, sinus. A-fib 36%. -Holter monitor on 09/08/22 showed average HR 101 bpm, baseline A-fib, HR > 100 for 67% period -Pt states he has been taking digoxin. Will confirm it with rn homecare. Mild intermittent asthma 09/01/201503/2023 Immunizations Immunization Administration [...] - 1-dose 75+ series) 2025 COVID-19 Vaccine ( - 2024- season) 2025 11/11/2021, 02/16/2021, 01/19/2021 [...] disease, without long-term current use of insulin ([facility]) COLONOSCOPY Routine 04/22/2019 from Last 3 Months or Most Recently Relevant to Health Maintenance Results * (ABNORMAL) Lipid Panel with Reflex to Direct LDL (10/30/2023 2:57 PM EST) Triglycerides 433(H) <150 mg/dL [facility] Comment:Desirable Triglyceri de: less than 150 mg/dLBorderline High Triglyceride 150-199 mg/dLHigh Triglyceride: 200-499 mg/dLVery High Triglyceride: greater than or equal to 5OO mg/dL Cholesterol 266(H) <200 mg/dL [facility] Comment:Desirable Cholestero l: less than 200 mg/dLBorderline High Cholesterol: 200-239 mg/dLHigh Cholesterol: greater than 239 mg/dL LDL Cholesterol Calculated TNP <100 mg/dL [facility] Comment:Unable to calculate the LDL. The formula of Friedwald,Olsen, and Stefanie is only valid if the triglycerides areless than 400 mg/dl. HDL Cholesterol 28(L) >40 mg/dL [facility] Comment:Desirable HDL: great er than 40 mg/dL Note: This HDL assay may give artificially low results in patients with liver disease. Blood 10/30/2023 2:57 PM EST 10/30/2023 3:58 PM EST us Sherry Ward MD LAB BLOOD ORDERABLES Final Resul t [facility] [address] [place] [phone] * (ABNORMAL) POCT glycosylated hemoglobin (Hgb A1c) (10/30/2023 2:23 PM EST) Hemoglobin A1C 7.1(A) 4.0 - 6.0 % QC Media Lot # [id number] Lot# Expiration Date Blood Capillary blood specimen / Unknown 10/30/2023 2:23 PM EST us Sherry Ward MD POINT OF CARE TEST ENTER/EDIT OR DERABLES Final Result * Colonoscopy (04/22/2019) [facility] Signature Colonoscopy Normal Normal Antonio Provider HEALTH MAINTENANCE Final Result from Last 3 Months or Most Recently Relevant to Health Maintenance Insurance [facility]TE [facility] [address] [place] [phone] [place] [address] [place] [phone] Care Teams Cooking Appliance Repair Technician Relationship Specialty Start Date End Date Robe Parker, PharmD [address] [place] [address] Pharmacist Internal Medicine 06/15/23
--- OUTSIDE RECORDS SUMMARY | 2025-09-03 06:25 | XMS_ITS | Encounter Summary ---
Author Organization [facility] Address [address] [facility] [address] [place] [address] Phone Care Team Providers Care Optician Name Role Phone Joycelyn Brothers DO Primary Care Provider Ema ilable Encounter Details Date Type Department Care Team (Late st Contact Info) Description 05/29/2021 Orders Only [facility] [address] [place] [phone] Alex Garcia MD Chronic kidney disease stage [...] (HCC) documented in this encounter Care Teams Optician Relationship Specialty Start Date End Date Joycelyn Brothers DO PCP - General 11/30/20 documented as of this encounter
--- OUTSIDE RECORDS SUMMARY | 2025-09-03 06:25 | XMS_ITS | Encounter Summary ---
Author Organization [employer] Address 75 [facility] 7t [place] [address] Care Team Providers Care Renal Dialysis Technician Name Role Phone Sherry Ward MD Primary Care Provider [phone] Robe Parker PharmD Unavailable [phone] Encounter Details Date Type Department Care Team (Late st Contact Info) Description 11/04/2022 Orders Only [facility] 230 [place] [address] Sharon Ko, RN Social History Tobacco Use [...] on filedocumented in this encounter Care Teams Renal Dialysis Technician Relationship Specialty Start Date End Date Sherry Ward MD [address] [place] [address] PCP - General Family Medicine 11/20/18 12/17/23 Robe Parker, IrisD [address] [place] [address] Pharmacist Internal Medicine 06/15/23 documented as of this encounter
--- OUTSIDE RECORDS SUMMARY | 2025-09-03 06:25 | XMS_ITS | Encounter Summary ---
Author Organization [employer] Address 75 [facility] 7t [place] [address] Care Team Providers Care Oxygen Equipment Technician Name Role Phone Sherry Ward MD Primary Care Provider [phone] Robe Parker PharmD Unavailable [phone] Encounter Details Date Type Department Care Team (Late st Contact Info) Description 11/02/[address] [facility] 230 [place], [place] [phone] Sherry Ward MD [address] [place], [place] [phone] Left foot pain (Primary Dx) Social History [...] limb documented in this encounter Care Teams Oxygen Equipment Technician Relationship Specialty Start Date End Date Sherry Ward MD [address] [place] [address] PCP - General Family Medicine 11/20/18 12/17/23 Robe Parker, PharmD [address] [place] [address] Pharmacist Internal Medicine 06/15/23 documented as of this encounter
--- OUTSIDE RECORDS SUMMARY | 2025-09-03 06:25 | XMS_ITS | Encounter Summary ---
Author Organization [employer] Address [address] [facility] 7t [place] [address] Care Team Providers Care Clinical Education Coordinator Name Role Phone Sherry Ward MD Primary Care Provider [phone] Robe Parker PharmD Unavailable [phone] Encounter Details Date Type Department Care Team (Late st Contact Info) Description 11/02/2023 Orders Only [facility] [address] [place], [place] [phone] Sherry Ward MD 230 [place], [place] [phone] Social History Tobacco Use Types Packs/Day Years [...] filedocumented in this encounter Care Teams Clinical Education Coordinator Relationship Specialty Start Date End Date Sherry Ward MD 230 [place] [address] PCP - General Family Medicine 11/20/18 12/17/23 Robe Parker, PharmD [address] [place] [address] Pharmacist Internal Medicine 06/15/23 documented as of this encounter
--- OUTSIDE RECORDS SUMMARY | 2025-09-03 06:25 | XMS_ITS | Encounter Summary ---
Author Organization [employer] Address 75 [facility] 7t [place] [address] Care Team Providers Care Prosthetic Technician Name Role Phone Robe Parker PharmD Unavailable [phone] Reason for Visit * Reason Comments Med Refill Encounter Details Date Type Department Care Team ([facility] st Contact Info) Description 08/05/2024 Refill [facility] 230 [place] [address] Sherry Ward MD 230 [place], [place] [phone] Social History Tobacco Use Types Packs/Day Years [...] on filedocumented in this encounter Care Teams Prosthetic Technician Relationship Specialty Start Date End Date Robe Parker PharmD [address] [place] [phone] Pharmacist Internal Medicine 06/15/23 documented as of this encounter
--- OUTSIDE RECORDS SUMMARY | 2025-09-03 06:25 | XMS_ITS | Encounter Summary ---
Author Organization [employer] Address 75 [facility] 7t [place] [address] Care Team Providers Care Autoclave Operator Name Role Phone Robe Parker PharmD Unavailable [phone] Reason for Visit * Reason Comments Med Refill Encounter Details Date Type Department Care Team ([facility] st Contact Info) Description 03/11/2024 Refill [facility] 230 [place] [address] Sherry Ward MD 230 [place], [place] [phone] Neuropathic pain Social History Tobacco Use Types [...] pain documented in this encounter Care Teams Autoclave Operator Relationship Specialty Start Date End Date Robe Parker PharmD [address] [place] [address] Pharmacist Internal Medicine 06/15/23 documented as of this encounter
--- OUTSIDE RECORDS SUMMARY | 2025-09-03 06:25 | XMS_ITS | Encounter Summary ---
Author Organization [employer] Address 75 [facility] 7t [place] [address] Care Team Providers Care Dry Pan Charger Name Role Phone Sherry Ward MD Primary Care Provider [phone] Robe Parker PharmD Unavailable [phone] Reason for Visit * Reason Onset Date Comments triage 11/25/2022 Encounter Details Date Type Department Care Team ([facility] st Contact Info) Description 11/25/2022 Telephone [facility] 230 [place], [place] [phone] Sherry Ward MD 230 [place], [place] [phone] triage Social History Tobacco Use Types Packs/Day [...] 11/25/2022 4:06 PM EST Triage call with [employer] Podiatric Assistant ID [id number] Pt reports son came over this morning to test with home test. Pt isn't sure if it is positive and is requesting medication. Pt reports has had Covid before . Pt is unable to come to [facility] today for further testing. Pt symptoms [...] on filedocumented in this encounter Care Teams Dry Pan Charger Relationship Specialty Start Date End Date Sherry Ward MD [address] [place] [address] PCP - General Family Medicine 11/20/18 12/17/23 Robe Parker, IrisD [address] [place] [address] Pharmacist Internal Medicine 06/15/23 documented as of this encounter
[2025-09-03] MEDS: Furosemide 40 MG/4 ML VIAL IVPUSH (07:40)
--- NOTE | 2025-09-03 09:05 | PM.IMHP ---
History of Present Illness Date of Service: 09/03/25 Chief Complaint: Shortness of Breath This is a 75-year-old male with a history of atrial fibrillation on Coumadin, mixed hyperlipidemia (on Lipitor), stage 4 chronic kidney disease, hypertension, coronary artery disease, and congestive heart failure with an ejection fraction of 45?50%. He is known to be noncompliant with his medications. He recently presented to urgent care with abdominal pain and was diagnosed with constipation, for which he was prescribed Miralax. He is now experiencing dyspnea on exertion, bilateral lower extremity edema, and increasing shortness of breath. According to his son, he has also become increasingly confused. The son reports that the patient has not been taking his medications, including his diuretics. In the emergency department, workup revealed the following: Chest X-ray: Pulmonary edema Pro-BNP: 22,682.8 Creatinine: 6.06 (baseline 4?5) Potassium: 5.9 (treated with Lokelma) ED treatment: IV Lasix and lokelma Review of Systems Review of Systems: Constitutional:?No fever or chills reported. Cardiovascular:?Worsening lower extremity edema, irregular heart rhythm. PND and othopnea Respiratory:?Dyspnea on exertion, increased work of breathing. Gastrointestinal:?Recent constipation, now resolved. Neurological:?Increasing confusion per family. Genitourinary:?No dysuria or hematuria reported. FORMERLY [facility], [facility] Medical History Abdominal bloating Generalized abdominal pain HTN (hypertension) Allergies Sinus bradycardia Pre-op examination Annual physical exam History of TIA (transient ischemic attack) Gout Personal history of nicotine dependence Chronic kidney disease, stage 3 unspecified Benign prostatic hyperplasia with lower urinary tract symptoms CAD (coronary artery disease) Paroxysmal atrial fibrillation Family History Mother CAD (coronary artery disease) Diabetes HTN (hypertension) Father CAD (coronary artery disease) Diabetes HTN (hypertension) Surgical History Stented coronary artery Hx of colonoscopy Hx of cardiac cath Hx of cystoscopy History of esophagogastroduodenoscopy (EGD) Hx of cataract extraction Social History Household Members: None Housing: Apartment Do you presently have visiting nurse or other home services: No Alcohol intake: former Patient Tobacco Use Status: Former Tobacco user Tobacco use type: Cigarette Years Smoked: 40 +/- Smoked in Last 30 Days: No e-Cigarette/Vaping Use: Never Used Second Hand Smoke Exposure: No Use of substances other than those prescribed or required for medical reasons: No Advance Directives: No Advance Directives Information Provided: Yes Do you have a plan to hurt others: No Plan service: No Current occupational status: retired and disabled Cognitive needs: No Hearing needs: No Vision needs: Yes Meds Allergies Allergy/AdvReac Type Severity Reaction Status Date / Time lisinopril (LISINOPRIL) Allergy Severe ACUTE Verified 09/03/25 04:46 KIDNEY INJURY oxycodone (Percocet) Allergy Intermediate agitation Verified 09/03/25 04:46 codeine (CODEINE) Allergy Unknown AGITATION Verified 09/03/25 04:46 morphine (MORPHINE) Allergy Unknown AGITATION, Verified 09/03/25 04:46 confusion dicyclomine (From A-Spas AdvReac Intermediate Confusion Verified 09/03/25 04:46 (dicyclomine)) From PERCOCET Allergy Unknown AGITATION Uncoded 09/03/25 04:46 Home Medications ?Medication ?Instructions ?Recorded ?Confirmed ?Last Taken ?Type warfarin 5 mg tablet 7.5 mg PO MO 10/02/24 09/03/25 09/30/24 History atorvastatin 80 mg tablet 80 mg PO DAILY 09/03/25 09/03/25 Unknown History furosemide 40 mg tablet 40 mg PO DAILY 09/03/25 09/03/25 Unknown History sodium zirconium cyclosilicate 5 10 g PO MOWEFR PRN high potassium 09/03/25 09/03/25 Unknown History gram oral powder packet (Lokelma) Physical Exam Vital Signs and Narrative: Vital Signs: Last Vital Signs Temp 97.8 F 09/03/25 08:04 Pulse 98 09/03/25 08:04 Resp 32 H 09/03/25 08:04 BP 163/101 H 09/03/25 08:04 Pulse Ox 97 09/03/25 08:04 O2 Del Method Nasal Cannula 09/03/25 08:04 O2 Flow Rate 3 09/03/25 08:04 BMI result Body Mass Index 28.7 Const: Other: General:?Appears ill, increased work of breathing HEENT: anciteric Cardiovascular:?Tachycardia, irregularly irregular rhythm, +JVD, 3+ pedal edema Respiratory:?Bibasilar rales Abdomen:?Soft, non-tender Neurological:?Confused, oriented to person and Place, no focal deficit Results Labs 09/03/25 05:15 09/04/25 04:06 Labs: Laboratory Results - last 24 hr 09/03/25 05:15 MCV 87.7 MCH 26.7 L MCHC 30.4 L RDW 17.4 H Plt Count 175 MPV 11.0 Immature Gran % (Auto) 0.4 Neut % (Auto) 75.5 H Lymph % (Auto) 7.7 L Nance % (Auto) 10.7 Eos % (Auto) 4.6 H Baso % (Auto) 1.1 Lymph # (Auto) 0.6 L Nance # (Auto) 0.8 Eos # (Auto) 0.3 Baso # (Auto) 0.1 Abs Immat Gran (auto) 0.03 Absolute Neuts (auto) 5.4 Absolute Nucleated RBC 0.000 Nucleated RBC % (auto) 0.0 PT 39.8 H D INR 3.5 H D Anion Gap 17 Estim Creat Clear Calc 10.5 Estimated GFR 9 Random Glucose 120 H Calcium 9.7 D Magnesium 2.2 Total Bilirubin 1.6 H AST 22 ALT 14 Alkaline Phosphatase 82 Troponin I High Sens 20.4 D NT-Pro-B Natriuret Pep 85214.8 H Total Protein 7.2 Albumin 4.2 Lipase 72 COVID-19 (ROSIBEL) Negative COVID-19 Clin Com See Note Influenza Type A (MARKIE) Negative Influenza Type B (MARKIE) Negative Influenza A & B Note See Note Assessment and Plan (1) Noncompliance with medication regimen: Status: Acute (2) Acute exacerbation of congestive heart failure: Status: Acute (3) Atrial fibrillation: Qualifiers: Atrial fibrillation type: permanent Qualified Code(s): I48.21 - Permanent atrial fibrillation Status: Acute Plan 75/m with AFIB, chronic systolic heart failure, HLD, HTN non-compliant with meds being admitted for for acute decompensated heart failure with pulmonary edema and hypoxia, acute on chronic kidney injury, hyperkalemia, and new or worsening confusion. He requires inpatient management for IV diuresis, close monitoring of renal function and electrolytes, and multidisciplinary care. Acute decompensated heart failure with volume overload, likely precipitated by medication noncompliance. Has SIRs criteria but no infection (ie no PNA, cxr finding are due to heart failure) at this time, tachycardia and tachypnea related to Heart failure and AFIB admit to telemetry for close monitoring IVdiuretics, and have his fluid status, daily weights, and intake/output closely monitored. Sodium and fluid restriction Worsening renal function (CKD stage 4, now with acute on chronic kidney injury) with creatinine increased from baseline. monitored Cr daily, medications adjusted as needed, and nephrology consultation Hyperkalemia (potassium 5.9, treated with Lokelma) monitor K, avoid nephrotoxic and potassium-sparing medications will be avoided. Lokelma as needed Atrial fibrillation now RVR resume home meds continue anticoagulatioon woth coumadin, INR is 3.5, monitor INR daiy Confusion, likely multifactorial (hypoxia, ? uremia, volume overload). likely metabolic encephalopahy Mental status will be monitored, consider head CT if there is no improvement or if focal deficits develop. Medication noncompliance. Case management and social work will be involved for medication education and discharge planning and likely dc with VNA Indication for Admission to Inpatient: The patient requires admission due to acute decompensated heart failure with pulmonary edema and hypoxia, acute on chronic kidney injury with significant elevation in creatinine, hyperkalemia requiring close monitoring and intervention, new or worsening confusion, and the need for IV diuresis, telemetry monitoring, and multidisciplinary care. Quality Stroke Does the patient have a stroke diagnosis?: No VTE Prior VTE?: No VTE Risk Level:: Medical - moderate - high VTE Device Contraindication: Treatment Not Indicated VTE Drug Contraindication: N/A - Med Ordered
--- NOTE | 2025-09-03 10:37 | PM.CNCAR ---
History of Present Illness History of Present Illness Date of Service: 09/03/25 Requesting physician: Fransico Parham Chief complaint: CHF ex Narrative: Pleasant 75-year-old gentleman with background history of chronic kidney disease, abdominal aortic aneurysm 38 x [address] scan, gallstones, anemia, hyperlipidemia, permanent atrial fibrillation on Coumadin who is presenting with shortness of breath. He has been experiencing shortness of breath which is progressive and today his son brought him to the emergency department. His son also told that he has been complaining of diffuse abdominal pain and confusion. He has noticed to have elevated BUN of 106 and creatinine of 6. He also appears to be quite hypertensive and short of breath with significant volume overload and congestive heart failure. Is denying any abdominal or chest discomfort currently. Labs and imaging reviewed. FORMERLY [facility], [facility] Past Medical History Medical History Abdominal bloating Generalized abdominal pain HTN (hypertension) Allergies Sinus bradycardia Pre-op examination Annual physical exam History of TIA (transient ischemic attack) Gout Personal history of nicotine dependence Chronic kidney disease, stage 3 unspecified Benign prostatic hyperplasia with lower urinary tract symptoms CAD (coronary artery disease) Paroxysmal atrial fibrillation Family History Family History Mother CAD (coronary artery disease) Diabetes HTN (hypertension) Father CAD (coronary artery disease) Diabetes HTN (hypertension) Surgical History Surgical History Stented coronary artery Hx of colonoscopy Hx of cardiac cath Hx of cystoscopy History of esophagogastroduodenoscopy (EGD) Hx of cataract extraction Social History Social History Household Members: None Housing: Apartment Do you presently have visiting nurse or other home services: No Alcohol intake: former Patient Tobacco Use Status: Former Tobacco user Tobacco use type: Cigarette Years Smoked: 40 +/- e-Cigarette/Vaping Use: Never Used Second Hand Smoke Exposure: No service: No Current occupational status: retired and disabled Cognitive needs: No Hearing needs: No Vision needs: Yes Meds Allergies Allergy/AdvReac Type Severity Reaction Status Date / Time lisinopril (LISINOPRIL) Allergy Severe ACUTE Verified 09/03/25 04:46 KIDNEY INJURY oxycodone (Percocet) Allergy Intermediate agitation Verified 09/03/25 04:46 codeine (CODEINE) Allergy Unknown AGITATION Verified 09/03/25 04:46 morphine (MORPHINE) Allergy Unknown AGITATION, Verified 09/03/25 04:46 confusion dicyclomine (From A-Spas AdvReac Intermediate Confusion Verified 09/03/25 04:46 (dicyclomine)) From PERCOCET Allergy Unknown AGITATION Uncoded 09/03/25 04:46 Active Medications: Current Medications Acetaminophen (Acetaminophen 325 Mg Tablet) 650 mg PO Q6H PRN PRN Reason: Pain, Mild 1-3,fever,headache Calcium Carbonate (Calcium Carbonate 750 Mg Tab.Chew) 750 mg PO Q4H PRN PRN Reason: Heartburn Furosemide (Furosemide 40 Mg/4 Ml Vial) 40 mg IVPUSH BID@0900,1800 FOR[facility]LY [facility]; Protocol Magnesium Hydroxide (Milk Of Magnesia 30 Ml Oral.Susp) 30 ml PO DAILY PRN PRN Reason: Constipation Melatonin (Melatonin 3 Mg Tablet) 6 mg PO BEDTIME PRN PRN Reason: Insomnia Ondansetron HCl (Ondansetron Hcl 4 Mg/2 Ml Vial) 4 mg IVPUSH Q8H PRN PRN Reason: Nausea and Vomiting Sodium Chloride (0.9 % Sodium Chloride Flush 3 Ml Syringe) 3 [facility] Home Medications ?Medication ?Instructions ?Recorded ?Confirmed ?Last Taken ?Type warfarin 5 mg tablet 7.5 mg PO MO 10/02/24 09/03/25 09/30/24 History atorvastatin 80 mg tablet 80 mg PO DAILY 09/03/25 09/03/25 Unknown History furosemide 40 mg tablet 40 mg PO DAILY 09/03/25 09/03/25 Unknown History sodium zirconium cyclosilicate 5 10 g PO MOWEFR PRN high potassium 09/03/25 09/03/25 Unknown History gram oral powder packet (Lokelma) Physical Exam Vital Signs: Vital Signs: Last Vital Signs Temp 97.8 F 09/03/25 08:04 Pulse 98 09/03/25 08:04 Resp 32 H 09/03/25 08:04 BP 163/101 H 09/03/25 08:04 Pulse Ox 97 09/03/25 08:04 O2 Del Method Nasal Cannula 09/03/25 08:04 O2 Flow Rate 3 09/03/25 08:04 BMI result Body Mass Index 28.7 GENERAL APPEARANCE: in no acute distress, sleepy but arousable. NECK: no carotid bruit, + jugular venous distention. SKIN: no suspicious lesions, warm and dry. HEART: Holosystolic murmur at the apex, irregular rate and rhythm. LUNGS: Crackles bilaterally. ABDOMEN: soft, nontender. EXTREMITIES: 2+ edema. PERIPHERAL PULSES: equal. NEUROLOGIC: No gross deficits, AAO X 3. cataract left eye Objective Labs and Meds 09/03/25 05:15 09/03/25 05:15 Lab results: Laboratory Results - last 24 hr 09/03/25 05:15 WBC 7.2 RBC 3.75 L Hgb 10.0 L Hct 32.9 L MCV 87.7 MCH 26.7 L MCHC 30.4 L RDW 17.4 H Plt Count 175 MPV 11.0 Immature Gran % (Auto) 0.4 Neut % (Auto) 75.5 H Lymph % (Auto) 7.7 L Geary % (Auto) 10.7 Eos % (Auto) 4.6 H Baso % (Auto) 1.1 Lymph # (Auto) 0.6 L Geary # (Auto) 0.8 Eos # (Auto) 0.3 Baso # (Auto) 0.1 Abs Immat Gran (auto) 0.03 Absolute Neuts (auto) 5.4 Absolute Nucleated RBC 0.000 Nucleated RBC % (auto) 0.0 PT 39.8 H D INR 3.5 H D Sodium 142 Potassium 5.9 H Chloride 113 H Carbon Dioxide 18 L Anion Gap 17 BUN 104 H Creatinine 6.04 H* Estim Creat Clear Calc 10.5 Estimated GFR 9 Random Glucose 120 H Calcium 9.7 D Magnesium 2.2 Total Bilirubin 1.6 H AST 22 ALT 14 Alkaline Phosphatase 82 Troponin I High Sens 20.4 D NT-Pro-B Natriuret Pep 12084.8 H Total Protein 7.2 Albumin 4.2 Lipase 72 COVID-19 (ROSIBEL) Negative COVID-19 Clin Com See Note Influenza Type A (MARKIE) Negative Influenza Type B (MARKIE) Negative Influenza A & B Note See Note Assessment and Plan (1) HTN (hypertension): Qualifiers: Hypertension type: primary hypertension Qualified Code(s): I10 - Essential (primary) hypertension Status: Acute (2) Acute exacerbation of congestive heart failure: Status: Acute (3) Atrial fibrillation: Qualifiers: Atrial fibrillation type: permanent Qualified Code(s): I48.21 - Permanent atrial fibrillation Status: Acute Plan [age] year gentleman with permanent atrial fibrillation on warfarin, chronic kidney disease, coronary artery disease, abdominal aortic aneurysm and hypertension presenting for shortness of breath and congestive heart failure. He has advanced CKD in his creatinine and BUN have personally significantly. He appears to be significantly volume overloaded. Symptoms of dyspnea etcetera related to heart failure. He also has systolic murmur due to mitral regurgitation. He needs echocardiography. Give IV Lasix and start Lasix drip. Consult Nephrology for urgent hemodialysis. Consider noninvasive ventilation to support him. Resume home dose of amlodipine 5 mg daily. Monitor blood pressure closely and titrate medications. Thank you for allowing me to participate in the care of your patient. Please feel free to contact me if you have any questions. Procedures Date of Service Date of Service: 09/03/25
--- NOTE | 2025-09-03 10:38 | PC.NURSE ---
pt is alert to his baseline, knows he is in a hospital, was able to states the year but not the month, according to the family pt has been getting more forgetfully in the past month or so, skin warm and appropriate for ethnicity, pt's left eye is glazed over in appearance-family states that something happened to his eye when he was a child, sees blurry through that eye, respirations labored and breathing about 26-30min, ls very diminished on the right side, pt is currently on oxygen at 2l and sating well anywhere from 96-100%, pt denies feeling sob and denies pain, noticeable peding edema to the lower extremities at +1,
--- NOTE | 2025-09-03 11:15 | PHA.MEDREC ---
Addendum entered by Florentino Pedroza PharmD 09/03/25 11:30: reviewed Original Note: Pharmacy Consult ? Medication Reconciliation Pharmacy has completed the medication reconciliation. Spoke to patient at bedside to confirm med list. Patient and family are poor historians. Family states they only know some medications , however do not remember the names. Family confirmed patient receives a [facility] from [facility] pharmacy. [facility] [place] [facility]. Patient takes Warfarin 5 mg every day except Mondays patient takes 7.5 mg. Utilized claims to confirm med list. Family states patent hasn't had any medications in a few days.
[2025-09-03] MEDS: Furosemide 200 MG in 0.9 % Sodium Chloride 80 ML IVCONT (12:05)
--- NOTE | 2025-09-03 12:11 | PC.NURSE ---
delay in lasix drip awaiting pharmacy to bring it up pt put on cpap setting 07/13 oxygen toreating well a flutter on the monitor
--- NOTE | 2025-09-03 13:10 | PC.NURSE ---
dr coyle at bedside to increase the lasix drip from 5mg/h to 10mg/h, male perwick applied, pt has not urinated except the 40ml
--- NOTE | 2025-09-03 14:48 | MHC.CM.PN ---
IMM GIVEN 09/03. THIS CM MET WITH PT WITH A TIMBER MANAGEMENT TECHNICIAN AT BEDSIDE, PTS DAUGHTER/HCP PRESENT AT BEDSIDE. PT LIVES ALONE AT HOME, SELF-CARE, HAS GRAB BARS IN THE BATHROOM. HCP ON FILE AND VERIFIED. DP: RETURN HOME SELF-CARE, SON OR DAUGHTER TO TRANSPORT HIM HOME AT DISCHARGE. PCP: CINDY CORTES
--- NOTE | 2025-09-03 15:45 | PC.NURSE ---
pt taken off the cpap and put on 2l via nasal cannual and tolerating well pt also had two very small sticky bowel movements
--- NOTE | 2025-09-03 16:29 | PM.CNNEP ---
History of Present Illness Reason for Consult Consult date: 09/03/25 Chief Complaint Chief complaint: CHF ex History of Present Illness Narrative: 75-year-old gentleman with past medical history of CKD stage 5 secondary to biopsy-proven chronic interstitial nephritis followed by Dr. Garcia in the clinic with poor response to steroids in the past, history of AFib, coronary artery disease, hypertension, CHF, hyperlipidemia, gout presents to the ED due to uremic symptoms. For the past 1-2 weeks patient has poor appetite, he has been getting swollen and lately he has been more confused for the past 2-3 days. He also developed significant tremor leg movements his lower extremities since the past 2 3 days. In the ED chest X of the distal pulmonary edema so placed on BiPAP support, started on Lasix drip and renal consulted. Review of Systems Review of Systems Unable to obtain as patient is confused PMFSH Past Medical History Medical History Abdominal bloating Generalized abdominal pain HTN (hypertension) Allergies Sinus bradycardia Pre-op examination Annual physical exam History of TIA (transient ischemic attack) Gout Personal history of nicotine dependence Chronic kidney disease, stage 3 unspecified Benign prostatic hyperplasia with lower urinary tract symptoms CAD (coronary artery disease) Paroxysmal atrial fibrillation Family History Family History Mother CAD (coronary artery disease) Diabetes HTN (hypertension) Father CAD (coronary artery disease) Diabetes HTN (hypertension) Surgical History Surgical History Stented coronary artery Hx of colonoscopy Hx of cardiac cath Hx of cystoscopy History of esophagogastroduodenoscopy (EGD) Hx of cataract extraction Social History Social History Household Members: None Housing: Apartment Do you presently have visiting nurse or other home services: No Alcohol intake: former Patient Tobacco Use Status: Former Tobacco user Tobacco use type: Cigarette Years Smoked: 40 +/- Smoked in Last 30 Days: No e-Cigarette/Vaping Use: Never Used Second Hand Smoke Exposure: No Use of substances other than those prescribed or required for medical reasons: No Advance Directives: No Advance Directives Information Provided: Yes Do you have a plan to hurt others: No Plan service: No Current occupational status: retired and disabled Cognitive needs: No Hearing needs: No Vision needs: Yes Meds Allergies Allergy/AdvReac Type Severity Reaction Status Date / Time lisinopril (LISINOPRIL) Allergy Severe ACUTE Verified 09/03/25 04:46 KIDNEY INJURY oxycodone (Percocet) Allergy Intermediate agitation Verified 09/03/25 04:46 codeine (CODEINE) Allergy Unknown AGITATION Verified 09/03/25 04:46 morphine (MORPHINE) Allergy Unknown AGITATION, Verified 09/03/25 04:46 confusion dicyclomine (From A-Spas AdvReac Intermediate Confusion Verified 09/03/25 04:46 (dicyclomine)) From PERCOCET Allergy Unknown AGITATION Uncoded 09/03/25 04:46 Active Medications: Current Medications Acetaminophen (Acetaminophen 325 Mg Tablet) 650 mg PO Q6H PRN PRN Reason: Pain, Mild 1-3,fever,headache Amlodipine Besylate (Amlodipine Besylate 5 Mg Tablet) 5 mg PO DAILY MATTHEW; Protocol Last Admin: 09/03/25 16:27 Dose: 5 mg Calcium Carbonate (Calcium Carbonate 750 Mg Tab.Chew) 750 mg PO Q4H PRN PRN Reason: Heartburn Furosemide 200 mg/ Sodium (Chloride) 100 mls @ 5 mls/hr IVCONT .Q20H PENDING SALE TO [facility] Last Infusion: 09/03/25 13:08 Dose: 10 mg/hr, 5 mls/hr Magnesium Hydroxide (Milk Of Magnesia 30 Ml Oral.Susp) 30 ml PO DAILY PRN PRN Reason: Constipation Melatonin (Melatonin 3 Mg Tablet) 6 mg PO BEDTIME PRN PRN Reason: Insomnia Ondansetron HCl (Ondansetron Hcl 4 Mg/2 Ml Vial) 4 mg IVPUSH Q8H PRN PRN Reason: Nausea and Vomiting Sodium Chloride (0.9 % Sodium Chloride Flush 3 Ml Syringe) 3 ml IVFLUSH QSHIFT PENDING SALE TO [facility] Last Admin: 09/03/25 16:28 Dose: Not Given Home Medications ?Medication ?Instructions ?Recorded ?Confirmed ?Last Taken ?Type warfarin 5 mg tablet 7.5 mg PO MO 10/02/24 09/03/25 09/30/24 History atorvastatin 80 mg tablet 80 mg PO DAILY 09/03/25 09/03/25 Unknown History furosemide 40 mg tablet 40 mg PO DAILY 09/03/25 09/03/25 Unknown History sodium zirconium cyclosilicate 5 10 g PO MOWEFR PRN high potassium 09/03/25 09/03/25 Unknown History gram oral powder packet (Lokelma) Physical Exam Vital Signs: Last Vital Signs Temp 97.8 F 09/03/25 08:04 Pulse 98 09/03/25 16:26 Resp 28 H 09/03/25 16:26 BP 172/105 H 09/03/25 16:26 Pulse Ox 97 09/03/25 16:26 O2 Del Method Nasal Cannula 09/03/25 16:26 O2 Flow Rate 2 09/03/25 16:26 FiO2 24 09/03/25 12:10 BMI result Body Mass Index 28.7 General: Elderly male in severe acute distress, he is chronically ill appearing and tired appearing Nutritional Appearance: well nourished and overweight Eyes: appearance normal, both eyes and all related structures; Alignment and Position: alignment normal and position normal Neck: No lymphadenopathy, no thyromegaly Resp: bilateral air entry equal, bilateral crackles heard Cardio: Regular rate, regular rhythm; Heart sounds: S1 normal heart sound present and S2 normal heart sound present GI: soft, nontender, no guarding, no hepatosplenomegaly : bladder normal to inspection, bladder normal to palpation, no renal angle tenderness Skin: no rashes or lesions noted and elasticity normal Neuro: Confused, not following commands Results Lab Results 09/03/25 05:15 09/03/25 05:15 Lab results: Chemistry 09/03/25 05:15 Sodium 142 Potassium 5.9 H Carbon Dioxide 18 L BUN 104 H Creatinine 6.04 H* Calcium 9.7 D Hematology 09/03/25 05:15 WBC 7.2 Hgb 10.0 L Plt Count 175 Assessment and Plan (1) HTN (hypertension): Qualifiers: Hypertension type: primary hypertension Qualified Code(s): I10 - Essential (primary) hypertension Status: Acute (2) CAD (coronary artery disease): Qualifiers: Coronary Disease-Associated Artery/Lesion type: [place] artery [place] vs. transplanted heart: [place] heart Associated angina: without angina Qualified Code(s): I25.10 - Atherosclerotic heart disease of [place] coronary artery without angina pectoris Status: Acute (3) CKD (chronic kidney disease) stage 5, GFR less than 15 ml/min: Status: Acute Plan End-stage renal disease: Patient has chronic kidney disease stage 5 secondary to biopsy-proven chronic interstitial nephritis with poor response to steroids in the past is being admitted to the hospital with uremic symptoms. He has pulmonary edema, placed on CPAP for oxygenation support. Given his uremic symptoms, mucus discussed with the family that he needs to be started on renal replacement therapy. Patient has encephalopathy, edema, pulmonary edema, hypoxia he will need emergent dialysis and this has been conveyed to the primary team. We are waiting on dialysis access placement, as soon as it is placed we will initiate hemodialysis. Lasix drip will increase to 10 milligrams/hour to see if he has any improvement in the urine output. Hyperkalemia: We will medically manage hyperkalemia for now until we initiate hemodialysis recommend Albuterol, Lasix, insulin dextrose, sodium bicarb pushes to correct hyperkalemia Anemia of ESRD: Hemoglobin 10 will get iron profile Procedures Date of Service Date of Service: 09/03/25
[2025-09-03 19:06] LABS: Anion Gap 17 (12-20); Blood Urea Nitrogen 106 mg/dL (9-16); Calcium 9.0 mg/dL (8.4-10.2); Carbon Dioxide 18 mmol/L (22-29); Chloride 113 mmol/L (96-108); Creatinine Clr Calc Pharmacy 10.1; Estimated Glomerular Filt Rate 9; Potassium 5.8 mmol/L (3.3-5.1); Sodium 142 mmol/L (135-145)
[2025-09-04] VITALS (26 sets, daily range): BP systolic 128–157; BP diastolic 73–103; PULSE 106–156; RESP 18–30; TEMP 36.4–36.8; O2SAT 93–99; BMI 31.1
[2025-09-04 00:09] LABS: Appearance Urine Clear; Glucose Urine UA Negative (Negative); PH 5.5 (5.0-9.0); Specific Gravity - Urine 1.010 (1.005-1.025); UMIC TRIGGER UACC YES
[2025-09-04 04:55] LABS: Anion Gap 19 (12-20); Blood Urea Nitrogen 116 mg/dL (9-16); Calcium 9.1 mg/dL (8.4-10.2); Carbon Dioxide 18 mmol/L (22-29); Chloride 112 mmol/L (96-108); Creatinine Clr Calc Pharmacy 10.1; Estimated Glomerular Filt Rate 9; Potassium 5.4 mmol/L (3.3-5.1); Sodium 144 mmol/L (135-145)
[2025-09-04] MEDS: Furosemide 200 MG in 0.9 % Sodium Chloride 80 ML IVCONT (07:44)
[2025-09-04 08:56] LABS: INTERNATIONAL NORM RATIO 4.8 (0.9-1.1); Prothrombin Time 54.6 SEC (10.9-12.4)
--- NOTE | 2025-09-04 11:27 | P.PNIM_ITS ---
Subjective Subjective Date of Service: 09/04/25 Interval History: Follow-up on decompensated heart failure in the setting of ESRD. He was started on diuretic drip yesterday and seemed to have made improvement. Having diuresed over 3 L overnight. Creatinine remains high the patient still have some signs of respiratory distress with a respiration rate in the high 20s although much better than yesterday. Lower extremity edema seems much better Physical Exam 2 Exam: Exam: a General: He is alert, less confused today. Resp: moderate wob, CVS: S1,S2,RRR, 2+ leg edema GI: +BS, NT, no distention Skin: No rash Neuro: motor grossly intact Psych: appropriate affect Vital Signs: Vital Signs: Last Vital Signs Temp 97.6 F 09/04/25 11:23 Pulse 125 H 09/04/25 11:23 Resp 30 H 09/04/25 11:23 BP 153/102 H 09/04/25 11:23 Pulse Ox 98 09/04/25 11:23 O2 Del Method Nasal Cannula 09/04/25 11:23 O2 Flow Rate 2 09/04/25 11:23 FiO2 24 09/03/25 12:10 BMI result Body Mass Index 28.7 Objective Data Active Medications Acetaminophen (Acetaminophen 325 Mg Tablet) 650 mg PO Q6H PRN PRN Reason: Pain, Mild 1-3,fever,headache Amlodipine Besylate (Amlodipine Besylate 5 Mg Tablet) 5 mg PO DAILY MATTHEW; Protocol Last Admin: 09/03/25 16:27 Dose: 5 mg Documented By: MARYJANE Atorvastatin Calcium (Atorvastatin Calcium 80 Mg Tablet) 80 mg PO DAILY MATTHEW Calcium Carbonate (Calcium Carbonate 750 Mg Tab.Chew) 750 mg PO Q4H PRN PRN Reason: Heartburn Fluticasone Propionate (Fluticasone Propionate Nasal 16 Gm [place]) 1 spray NOSTRIL-B DAILY MATTHEW Furosemide 200 mg/ Sodium (Chloride) 100 mls @ 5 mls/hr IVCONT .Q20H MATTHEW Magnesium Hydroxide (Milk Of Magnesia 30 Ml Oral.Susp) 30 ml PO DAILY PRN PRN Reason: Constipation Melatonin (Melatonin 3 Mg Tablet) 6 mg PO BEDTIME PRN PRN Reason: Insomnia Non-Formulary Medication (Febuxostat [Uloric]) 40 mg PO DAILY MATTHEW Ondansetron HCl (Ondansetron Hcl 4 Mg/2 Ml Vial) 4 mg IVPUSH Q8H PRN PRN Reason: Nausea and Vomiting Sodium Chloride (0.9 % Sodium Chloride Flush 3 Ml Syringe) 3 ml IVFLUSH QSHIFT [facility] Last Admin: 09/04/25 04:22 Dose: Not Given Documented By: PABLO Non-Admin Reason: IV Running Sodium Zirconium Cyclosilicate (Sodium Zirconium Cyclosilicate 10 Gm Powd.Pack) 10 gm PO MOWEFR PRN PRN Reason: high potassium Vitamin D (Cholecalciferol (Vitamin D3) 25 Mcg Tablet) 25 mcg PO DAILY [facility] Labs 09/03/25 05:15 09/04/25 04:06 Labs: Laboratory Results - last 24 hr 09/03/25 09/03/25 09/03/25 13:25 18:38 23:52 PT INR Anion Gap 17 Estim Creat Clear Calc 10.1 Estimated GFR 9 Random Glucose 87 Calcium 9.0 D Urine Color Yellow Urine Appearance Clear Urine pH 5.5 Ur Specific [place] 1.010 Urine Protein 100 (2+) H Urine Glucose (UA) Negative Urine Ketones Negative Urine Blood Small (1+) H Urine Nitrite Negative Ur Leukocyte Esterase Negative Urine RBC 6-10 H Urine WBC 0-5 Ur Squamous Epith Cells 0-2 Urine Bacteria None Seen Hyaline Casts 0-2 Blood Type O Positive Antibody Screen NEGATIVE 09/04/25 09/04/25 04:06 08:25 PT 54.6 H D INR 4.8 H Anion Gap 19 Estim Creat Clear Calc 10.1 Estimated GFR 9 Random Glucose 101 Calcium 9.1 Urine Color Urine Appearance Urine pH Ur Specific [place] Urine Protein Urine Glucose (UA) Urine Ketones Urine Blood Urine Nitrite Ur Leukocyte Esterase Urine RBC Urine WBC Ur Squamous Epith Cells Urine Bacteria Hyaline Casts Blood Type Antibody Screen Assessment and Plan (1) Acute exacerbation of congestive heart failure: Status: Acute (2) ESRD (end stage renal disease): Status: Acute (3) Metabolic encephalopathy: Status: Acute (4) Atrial fibrillation: Status: Acute Plan 75/m with AFIB, chronic systolic heart failure, HLD, HTN non-compliant with meds being admitted for for acute decompensated heart failure with pulmonary edema and hypoxia, acute on chronic kidney injury, hyperkalemia, and new or worsening confusion. He requires inpatient management for IV diuresis, close monitoring of renal function and electrolytes, and multidisciplinary care. Acute decompensated heart failure with volume overload, likely precipitated by medication noncompliance, and cardiorenal syndrome, now ESRD Lasix drip at 10/hr, negative 1500 since yesterday, arangement being made for HD Sodium and fluid restriction Worsening renal function (CKD stage 4, now with acute on chronic kidney injury) with creatinine increased from baseline, uremic symptoms (confusion, mild asterixis) monitored Cr daily, medications adjusted as needed, and nephrology following, to get Perm Cath today for dialysis Hyperkalemia (potassium 5.9, treated with Lokelma) monitor K, avoid nephrotoxic and potassium-sparing medications will be avoided. Lokelma daily, ultmate fix with dialysis Atrial fibrillation now RVR resume home meds holding coumadin before procedure will restart metoprolol once less fluid overloaded Confusion, likely multifactorial (hypoxia, uremia, volume overload). likely metabolic encephalopahy Mental status will be monitored, consider head CT if there is no improvement or if focal deficits develop. Medication noncompliance. Case management and social work will be involved for medication education and discharge planning and likely dc with VNA The patient requires admission due to acute decompensated heart failure with pulmonary edema and hypoxia, acute on chronic kidney injury with significant elevation in creatinine, hyperkalemia requiring close monitoring and intervention, new or worsening confusion, and the need for IV diuresis, telemetry monitoring, and multidisciplinary care. Quality Stroke Does the patient have a stroke diagnosis?: No VTE Prior VTE?: No VTE Risk Level:: Medical - moderate - high VTE Device Contraindication: Treatment Not Indicated VTE Drug Contraindication: N/A - Med Ordered
--- NOTE | 2025-09-04 13:08 | P.PNNP_ITS ---
Subjective Subjective Date of Service: 09/04/25 Interval history: Good urine output with Lasix drip fluid balance net-1.4 L yesterday He still continues to be poorly responsive, very drowsy He is off BiPAP support this morning after diuresis. Physical Exam 2 Vital Signs: Vital Signs: Last Vital Signs Temp 97.6 F 09/04/25 11:23 Pulse 119 H 09/04/25 12:00 Resp 25 H 09/04/25 12:00 BP 151/102 H 09/04/25 12:00 Pulse Ox 96 09/04/25 12:00 O2 Del Method Nasal Cannula 09/04/25 12:00 O2 Flow Rate 2 09/04/25 11:23 FiO2 24 09/03/25 12:10 BMI result Body Mass Index 28.7 General: Elderly male in acute distress, he is chronically ill appearing and tired appearing Nutritional Appearance: well nourished and overweight Eyes: appearance normal, both eyes and all related structures; Alignment and Position: alignment normal and position normal Neck: No lymphadenopathy, no thyromegaly Resp: bilateral air entry equal, occasional added sounds present Cardio: Regular rate, regular rhythm; Heart sounds: S1 normal heart sound present and S2 normal heart sound present GI: soft, nontender, no guarding, no hepatosplenomegaly : bladder normal to inspection, bladder normal to palpation, no renal angle tenderness Skin: no rashes or lesions noted and elasticity normal Neuro: Confused, not following any commands Objective Data Labs 09/03/25 05:15 09/04/25 04:06 Labs: Laboratory Results - last 24 hr 09/03/25 09/03/25 09/03/25 13:25 18:38 23:52 PT INR Sodium 142 Potassium 5.8 H Chloride 113 H Carbon Dioxide 18 L Anion Gap 17 BUN 106 H Creatinine 6.28 H* Estim Creat Clear Calc 10.1 Estimated GFR 9 Random Glucose 87 Calcium 9.0 D Urine Color Yellow Urine Appearance Clear Urine pH 5.5 Ur Specific [place] 1.010 Urine Protein 100 (2+) H Urine Glucose (UA) Negative Urine Ketones Negative Urine Blood Small (1+) H Urine Nitrite Negative Ur Leukocyte Esterase Negative Urine RBC 6-10 H Urine WBC 0-5 Ur Squamous Epith Cells 0-2 Urine Bacteria None Seen Hyaline Casts 0-2 Blood Type O Positive Antibody Screen NEGATIVE 09/04/25 09/04/25 04:06 08:25 PT 54.6 H D INR 4.8 H Sodium 144 Potassium 5.4 H Chloride 112 H Carbon Dioxide 18 L Anion Gap 19 BUN 116 H Creatinine 6.26 H* Estim Creat Clear Calc 10.1 Estimated GFR 9 Random Glucose 101 Calcium 9.1 Urine Color Urine Appearance Urine pH Ur Specific [place] Urine Protein Urine Glucose (UA) Urine Ketones Urine Blood Urine Nitrite Ur Leukocyte Esterase Urine RBC Urine WBC Ur Squamous Epith Cells Urine Bacteria Hyaline Casts Blood Type Antibody Screen Procedures Date of Service Date of Service: 09/04/25 Assessment & Plan Assessment and plan (1) HTN (hypertension): Status: Acute (2) Acute kidney injury superimposed on CKD: Status: Acute (3) CKD (chronic kidney disease) stage 5, GFR less than 15 ml/min: Status: Acute (4) Acute on chronic kidney failure: Status: Acute Plan End-stage renal disease: Patient has chronic kidney disease stage 5 secondary to biopsy-proven chronic interstitial nephritis with poor response to steroids in the past is being admitted to the hospital with uremic symptoms. His pulmonary edema has improved after diuresis with IV Lasix drip. Currently he is off of BiPAP, his fluid balance is net-1.4 L overnight. Continue Lasix drip until he gets hemodialysis as he would need some units of FFP for dialysis line placement, this diuresis would give him some room to get the FFPs Given his uremic symptoms, mental status, poor appetitie, leg tremors it is discussed with the family that he needs to be started on maintenance renal replacement therapy. We are waiting on dialysis access placement, as soon as it is placed we will initiate hemodialysis. FFPs to correct INR for HD line placement. 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 Hypertension: blood pressures should improve after initiating HD and correcting the volume status. currently on amlodipine5 Time Spent With Patient Time: Total time managing care of this patient today ____ minutes. Progress Note: Quality Stroke Does the patient have a stroke diagnosis?: No
--- NOTE | 2025-09-04 14:31 | PM.PNCARD ---
Subjective Subjective Date of Service: 09/04/25 Interval history: Seen and examined at bedside. Diuresing on Lasix gtt. More awake. INR rising. Physical Exam Vital Signs: Last Vital Signs Temp 97.6 F 09/04/25 11:23 Pulse 126 H 09/04/25 14:24 Resp 30 H 09/04/25 14:24 BP 142/91 H 09/04/25 14:24 Pulse Ox 98 09/04/25 14:24 O2 Del Method Nasal Cannula 09/04/25 14:24 O2 Flow Rate 2 09/04/25 14:24 FiO2 24 09/03/25 12:10 BMI result Body Mass Index 28.7 GENERAL APPEARANCE: in no acute distress. NECK: no carotid bruit, + jugular venous distention. SKIN: no suspicious lesions, warm and dry. HEART: Holosystolic murmur at the apex, irregular rate and rhythm. LUNGS: Crackles at bases. ABDOMEN: soft, nontender. EXTREMITIES: 2+ edema. PERIPHERAL PULSES: equal. NEUROLOGIC: No gross deficits, AAO X 3. cataract left eye Objective Labs and Meds 09/03/25 05:15 09/04/25 04:06 Lab results: Laboratory Results - last 24 hr 09/03/25 09/03/25 09/04/25 18:38 23:52 04:06 Hold Purple Top PT INR Sodium 142 144 Potassium 5.8 H 5.4 H Chloride 113 H 112 H Carbon Dioxide 18 L 18 L Anion Gap 17 19 BUN 106 H 116 H Creatinine 6.28 H* 6.26 H* Estim Creat Clear Calc 10.1 10.1 Estimated GFR 9 9 Random Glucose 87 101 Calcium 9.0 D 9.1 Urine Color Yellow Urine Appearance Clear Urine pH 5.5 Ur Specific [place] 1.010 Urine Protein 100 (2+) H Urine Glucose (UA) Negative Urine Ketones Negative Urine Blood Small (1+) H Urine Nitrite Negative Ur Leukocyte Esterase Negative Urine RBC 6-10 H Urine WBC 0-5 Ur Squamous Epith Cells 0-2 Urine Bacteria None Seen Hyaline Casts 0-2 09/04/25 09/04/25 08:25 14:27 Hold Purple Top SEE NOTE PT 54.6 H D INR 4.8 H Sodium Potassium Chloride Carbon Dioxide Anion Gap BUN Creatinine Estim Creat Clear Calc Estimated GFR Random Glucose Calcium Urine Color Urine Appearance Urine pH Ur Specific [place] Urine Protein Urine Glucose (UA) Urine Ketones Urine Blood Urine Nitrite Ur Leukocyte Esterase Urine RBC Urine WBC Ur Squamous Epith Cells Urine Bacteria Hyaline Casts Progress Note: A&P Assessment and plan (1) HTN (hypertension): Status: Acute (2) Acute exacerbation of congestive heart failure: Status: Acute (3) Acute on chronic kidney failure: Status: Acute Plan 75 male with CHF and acute on chronic renal failure. Hypertensive and overloaded. Diuresing well. c/w Lasix gtt. Add nitro paste. c/w amlodipine. systolic murmur at apex- will review echo for MR. He will need HD. He is persistent Afib and would avoid reversing INR unless emergent due to risk of stroke. Time Spent With Patient Time: Total time managing care of this patient today ____ minutes. Progress Note: Quality Stroke Does the patient have a stroke diagnosis?: No Procedures Date of Service Date of Service: 09/04/25
[2025-09-04] MEDS: Nitroglycerin 2 % Oint 1 GM Packet 1 INCH TRANSDERMA (14:37)
--- NOTE | 2025-09-04 16:17 | PC.NURSE ---
Pt taken to OR for Dialysis catheter placement. Verbal report given to RN.
--- NOTE | 2025-09-04 17:03 | PC.NURSE ---
Per MD- pt no longer needing FFP d/t getting dialysis catheter done.
[2025-09-05] VITALS (11 sets, daily range): BP systolic 96–162; BP diastolic 58–93; PULSE 62–123; RESP 17–18; TEMP 36.5–37.1; O2SAT 91–95
[2025-09-05] MEDS: Furosemide 200 MG in 0.9 % Sodium Chloride 80 ML IVCONT (00:16)
[2025-09-05 03:46] LABS: HBc Num1 0.07 S/CO (0.00-0.79)
[2025-09-05 04:06] LABS: HBS Num1 0.04 mIU/mL (0-7.99); HBsAGNum1 0.37 S/CO (0.00-0.99); Hepatitis B Surface Antigen Negative (Negative); ~Hepatitis B Surface Antibody NONREACTIVE (Nonreactive)
[2025-09-05 07:55] LABS: Anion Gap 18 (12-20); Blood Urea Nitrogen 87 mg/dL (9-16); Calcium 9.1 mg/dL (8.4-10.2); Carbon Dioxide 22 mmol/L (22-29); Chloride 106 mmol/L (96-108); Creatinine Clr Calc Pharmacy 13.0; Estimated Glomerular Filt Rate 11; Potassium 4.2 mmol/L (3.3-5.1); Sodium 142 mmol/L (135-145)
--- NOTE | 2025-09-05 08:48 | PC.RT ---
pt cpap order was from ED. Order will be dc'd per policy
--- NOTE | 2025-09-05 09:36 | P.PNNP_ITS ---
Subjective Subjective Date of Service: 09/05/25 Interval history: Underwent a session of dialysis yesterday, tolerated well. Plan for 2nd session of dialysis today and third session tomorrow Physical Exam 2 Vital Signs: Vital Signs: Last Vital Signs Temp 98.3 F 09/05/25 07:50 Pulse 123 H 09/05/25 09:01 Resp 18 09/05/25 07:50 BP 127/83 09/05/25 09:01 Pulse Ox 95 09/05/25 07:50 O2 Del Method Room Air 09/05/25 07:50 O2 Flow Rate 2 09/04/25 20:00 FiO2 24 09/03/25 12:10 BMI result Body Mass Index 31.1 General: Elderly male in mild acute distress, chronic ill appearing and tired appearing Nutritional Appearance: well nourished and overweight Eyes: appearance normal, both eyes and all related structures; Alignment and Position: alignment normal and position normal Neck: No lymphadenopathy, no thyromegaly Resp: bilateral air entry equal, occasional added sounds present mostly in lung bases Cardio: Regular rate, regular rhythm; Heart sounds: S1 normal heart sound present and S2 normal heart sound present GI: soft, nontender, no guarding, no hepatosplenomegaly : bladder normal to inspection, bladder normal to palpation, no renal angle tenderness Skin: no rashes or lesions noted and elasticity normal Neuro: No focal deficits, moves all extremities Objective Data Labs 09/03/25 05:15 09/05/25 06:52 Labs: Laboratory Results - last 24 hr 09/04/25 09/04/25 09/05/25 14:13 14:27 06:52 Hold Purple Top SEE NOTE Sodium 142 Potassium 4.2 D Chloride 106 Carbon Dioxide 22 Anion Gap 18 BUN 87 H Creatinine 5.08 H* Estim Creat Clear Calc 13.0 Estimated GFR 11 Random Glucose 100 Calcium 9.1 Hep Bs Antigen Negative Hep Bs Antibody NONREACTIVE Hep B Core Total Ab Nonreactive Procedures Date of Service Date of Service: 09/05/25 Assessment & Plan Assessment and plan (1) HTN (hypertension): Status: Acute (2) CKD (chronic kidney disease) stage 5, GFR less than 15 ml/min: Status: Acute (3) Metabolic encephalopathy: Status: Acute Plan End-stage renal disease: Patient has chronic kidney disease stage 5 secondary to biopsy-proven chronic interstitial nephritis admitted with significant uremic symptoms including cough uremic encephalopathy, volume overload, lower extremity tremors, decreased appetite. He is initiated on renal replacement therapy yesterday, he will get the 2nd session hemodialysis today and 3rd session of hemodialysis tomorrow. With stopping Lasix drip, with switch to Lasix 40 mg p.o. upon discharge to maintain residual renal function. 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 Hypertension: blood pressures should improve after initiating HD and correcting the volume status. Will stop amlodipine, continue metoprolol as he has history of atrial fibrillation Time Spent With Patient Time: Total time managing care of this patient today ____ minutes. Progress Note: Quality Stroke Does the patient have a stroke diagnosis?: No
--- NOTE | 2025-09-05 09:49 | P.PNNP_ITS ---
Subjective Subjective Date of Service: 09/05/25 Interval history: Underwent a session of dialysis yesterday, tolerated well. Plan for 2nd session of dialysis today and third session tomorrow Physical Exam 2 Vital Signs: Vital Signs: Last Vital Signs Temp 98.3 F 09/05/25 07:50 Pulse 123 H 09/05/25 09:01 Resp 18 09/05/25 07:50 BP 127/83 09/05/25 09:01 Pulse Ox 95 09/05/25 07:50 O2 Del Method Room Air 09/05/25 07:50 O2 Flow Rate 2 09/04/25 20:00 FiO2 24 09/03/25 12:10 BMI result Body Mass Index 31.1 General: Elderly male in mild acute distress, ill appearing and tired appearing Nutritional Appearance: well nourished and overweight Eyes: appearance normal, both eyes and all related structures; Alignment and Position: alignment normal and position normal Neck: No lymphadenopathy, no thyromegaly Resp: bilateral air entry equal, occasional added sounds present, mostly in the lung bases Cardio: Regular rate, regular rhythm; Heart sounds: S1 normal heart sound present and S2 normal heart sound present GI: soft, nontender, no guarding, no hepatosplenomegaly : bladder normal to inspection, bladder normal to palpation, no renal angle tenderness Skin: no rashes or lesions noted and elasticity normal Neuro: No focal deficits and moves all extremities Objective Data Labs 09/03/25 05:15 09/05/25 06:52 Labs: Laboratory Results - last 24 hr 09/04/25 09/04/25 09/05/25 14:13 14:27 06:52 Hold Purple Top SEE NOTE Sodium 142 Potassium 4.2 D Chloride 106 Carbon Dioxide 22 Anion Gap 18 BUN 87 H Creatinine 5.08 H* Estim Creat Clear Calc 13.0 Estimated GFR 11 Random Glucose 100 Calcium 9.1 Hep Bs Antigen Negative Hep Bs Antibody NONREACTIVE Hep B Core Total Ab Nonreactive Procedures Date of Service Date of Service: 09/05/25 Assessment & Plan Assessment and plan (1) HTN (hypertension): Status: Acute (2) Acute kidney injury superimposed on CKD: Status: Acute (3) CKD (chronic kidney disease) stage 5, GFR less than 15 ml/min: Status: Acute (4) ESRD (end stage renal disease): Status: Acute (5) Metabolic encephalopathy: Status: Acute Plan End-stage renal disease: Patient has chronic kidney disease stage 5 secondary to biopsy-proven chronic interstitial nephritis admitted with significant uremic symptoms including cough uremic encephalopathy, volume overload, lower extremity tremors, decreased appetite. He is initiated on renal replacement therapy yesterday, he will get the 2nd session hemodialysis today and 3rd session of hemodialysis tomorrow. With stopping Lasix drip, with switch to Lasix 40 mg p.o. upon discharge to maintain residual renal function. 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 Hypertension: blood pressures should improve after initiating HD and correcting the volume status. Will stop amlodipine, continue metoprolol as he has history of atrial fibrillation Time Spent With Patient Time: Total time managing care of this patient today ____ minutes. Progress Note: Quality Stroke Does the patient have a stroke diagnosis?: No
--- NOTE | 2025-09-05 12:00 | CA_ITS ---
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 There is mildly increased left ventricular wall thickness. The left ventricular systolic function is mild to moderately decreased. The visually estimated ejection fraction is between 35-40%. - Normal right ventricular cavity size and systolic function. - The left atrium is moderately dilated. - The right atrium is severely dilated. - There is moderate mitral valve regurgitation. - There is mild to moderate tricuspid valve regurgitation. Findings Left Ventricle Normal left ventricular cavity size. There is mildly increased left ventricular wall thickness. The left ventricular systolic function is mild to moderately decreased. The visually estimated ejection fraction is between 35-40%. There is no evidence of regional wall motion abnormalities. Diastolic function is indeterminate on the basis of available data. Right Ventricle Normal right ventricular cavity size and systolic function. Atria The left atrium is moderately dilated. The right atrium is severely dilated. Aortic Valve There is a normal trileaflet aortic valve. There is mild calcification of the aortic valve. There is no aortic valve stenosis. There is no aortic valve regurgitation. Mitral Valve The mitral valve appears normal. There is moderate mitral valve regurgitation. There is no mitral valve stenosis. Pulmonic Valve The pulmonic valve is normal. There is trace pulmonic valve regurgitation. Tricuspid Valve Normal tricuspid valve structure. There is mild to moderate tricuspid valve regurgitation. Tricuspid regurgitation envelope is inadequate for calculation of right ventricular systolic pressure. Moderately elevated right atrial pressure. Great Vessels The visualized portions of the pulmonary artery and branches are normal. Venous The inferior vena cava is dilated and collapses greater than 50% with inspiration. Pericardium/Pleural There is no evidence of pericardial effusion. Prior Study Comparison Changes noted compared to prior study dated: 05/30/2025. EF 35 to 40%, moderate MR. Measurements 2D Linear Measurements IVSd: 1.24 0.6-0.9/0.6-1.0 cm LVIDd: 5.40 3.9-5.3/4.2-5.9 cm LVIDd Index: 2.74 2.4-3.2/2.2-3.1 cm/m2 LVIDs: 4.17 2.0-3.6 cm LVPWd: 1.24 0.7-1.1 cm LA Diam: 4.70 2.7-3.8/3.0-4.0 cm LAIDs Index: 2.39 1.5-2.3 cm/m2 LV Mass: 345.11 67-162/88-224 g LV Mass Index: 175.18 43-95/49-115 g/m2 LVOT Diam: 2.10 3.0+(-)1.3 cm 2D Systolic Function EF 4C: 44.00 >55% EF 2C: 35.90 >55% EF BiP: 39.70 >55% Mitral Valve MV Pk E: 1.05 MV Decel Time: 170.00 E'Lateral: 10.60 E'Medial: 6.09 E/E' Med: 17.20 E/E' Lat: 9.90 PHT: 50.00 MVA PHT: 4.40 Decel [place]: 6.16 MR Vol - PW Dopp: 36.83 MR VTI: 1.27 MR ERO: 29.00 MR Alias Reuben: 0.40 MR RAD: 0.70 Aortic Valve AoV Pk Reuben: 1.94 AoV Mn Reuben: 1.15 AoV VTI: 0.39 AoV Pk Grad: 15.00 Aov Mn Grad: 6.00 REMY Cont.VTI: 1.27 LVOT LVOT Pk Reuben: 0.74 LVOT Mn Reuben: 0.50 LVOT VTI: 0.14 LVOT Pk Grad: 2.00 LVOT Mn Grad: 1.00 LVOT Diam: 2.10 LVOT Area: 3.46 Diastolic Function MV Pk E: 1.05 E'Medial: 6.09 E/E' Med: 17.20 E' Laterial: 10.60 E/E' Lat: 9.90 Right Ventricle TAPSE (mm): 22.00 TVS' Reuben: 10.60 Tricuspid Valve TR Pk Reuben: 2.72 TR Pk Grad: 30.00 Pulmonary Valve PV Pk Reuben: 0.88 Peak PV Grad: 3.00 Updated in Other Vendor System with Status of Final Artie Huntley MD electronically signed on 09/06/2025 12:01:22 AM with status of Final
--- NOTE | 2025-09-05 12:01 | PM.PNCARD ---
Subjective Subjective Date of Service: 09/05/25 Interval history: Seen examined at bedside. Feeling better. He has AFib with RVR in his currently on Cardizem drip. Physical Exam Vital Signs: Last Vital Signs Temp 98.3 F 09/05/25 07:50 Pulse 123 H 09/05/25 09:01 Resp 18 09/05/25 07:50 BP 127/83 09/05/25 09:01 Pulse Ox 95 09/05/25 07:50 O2 Del Method Room Air 09/05/25 07:50 O2 Flow Rate 2 09/04/25 20:00 FiO2 24 09/03/25 12:10 BMI result Body Mass Index 31.1 GENERAL APPEARANCE: in no acute distress. NECK: no carotid bruit, + jugular venous distention. SKIN: no suspicious lesions, warm and dry. HEART: Holosystolic murmur at the apex, irregular rate and rhythm. Tachycardic. LUNGS: Clear to auscultation. ABDOMEN: soft, nontender. EXTREMITIES: 1 + edema. PERIPHERAL PULSES: equal. NEUROLOGIC: No gross deficits, AAO X 3. cataract left eye Objective Labs and Meds 09/03/25 05:15 09/05/25 06:52 Lab results: Laboratory Results - last 24 hr 09/04/25 09/04/25 09/05/25 14:13 14:27 06:52 Hold Purple Top SEE NOTE Sodium 142 Potassium 4.2 D Chloride 106 Carbon Dioxide 22 Anion Gap 18 BUN 87 H Creatinine 5.08 H* Estim Creat Clear Calc 13.0 Estimated GFR 11 Random Glucose 100 Calcium 9.1 Hep Bs Antigen Negative Hep Bs Antibody NONREACTIVE Hep B Core Total Ab Nonreactive Progress Note: A&P Assessment and plan (1) HTN (hypertension): Status: Acute (2) Acute exacerbation of congestive heart failure: Status: Acute (3) Acute on chronic kidney failure: Status: Acute Plan 75 male with CHF and acute on chronic renal failure. He was hypertensive and overloaded. On Lasix drip and has been doing well. Blood pressure improving. He has AFib with RVR at this point and is requiring Cardizem drip. He is on metoprolol 50 mg twice a day. This should be resumed. We will repeat echocardiography to reassess the ejection fraction as he had mild cardiomyopathy previously. He had [id number] mitral valve regurgitation previously. This can change with volume status and he may have had worsening of the regurgitation but with volume optimization it may improve. He has a temporary dialysis catheter placed and may need hemodialysis. Nephrology is following him closely. Thank you for allowing me to participate in the care of your patient. Please feel free to contact me if you have any questions. Time Spent With Patient Time: Total time managing care of this patient today ____ minutes. Progress Note: Quality Stroke Does the patient have a stroke diagnosis?: No Procedures Date of Service Date of Service: 09/05/25
--- NOTE | 2025-09-05 15:43 | P.PNIM_ITS ---
Subjective Subjective Date of Service: 09/05/25 Interval History: Patient seen and examined at bedside this morning, patient today is alert and oriented, states that he is feeling better, however is experiencing cramping on his lower extremities. With plans on going to dialysis today. Labs showed creatinine of 5.0 decreased from 6.2. Physical Exam 2 Exam: Exam: General: AxOx3, No acute distress Head: AT/NC ENT: Moist mucous membranes Neck: supple CVS; irregular RR, S1 S2 normal Lungs: Clear bilateral breath sounds, no wheezes or crackles Abd: Soft non tender, non distended Ext: LE edema MSK: moving all 4 limbs Skin: No cyanosis Psych: Cooperative with exam Neurology: no focal deficit Vital Signs: Vital Signs: Last Vital Signs Temp 97.7 F 09/05/25 13:01 Pulse 100 09/05/25 13:42 Resp 18 09/05/25 13:01 BP 162/93 H 09/05/25 13:42 Pulse Ox 92 09/05/25 13:01 O2 Del Method Room Air 09/05/25 13:01 O2 Flow Rate 2 09/04/25 20:00 FiO2 24 09/03/25 12:10 BMI result Body Mass Index 31.1 Objective Data Active Medications Acetaminophen (Acetaminophen 325 Mg Tablet) 650 mg PO Q6H PRN PRN Reason: Pain, Mild 1-3,fever,headache Last Admin: 09/05/25 05:03 Dose: 650 mg Documented By: KIKA Atorvastatin Calcium (Atorvastatin Calcium 80 Mg Tablet) 80 mg PO DAILY [facility] Last Admin: 09/05/25 09:00 Dose: 80 mg Documented By: ES Calcium Carbonate (Calcium Carbonate 750 Mg Tab.Chew) 750 mg PO Q4H PRN PRN Reason: Heartburn Fluticasone Propionate (Fluticasone Propionate Nasal 16 Gm [place]) 1 spray NOSTRIL-B DAILY [facility] Last Admin: 09/05/25 09:09 Dose: Not Given Documented By: ES Non-Admin Reason: Patient Refused Diltiazem HCl 125 mg/ Sodium (Chloride) 125 mls @ 0 mls/hr IVCONT .Q0M [facility]; Protocol Last Admin: 09/05/25 13:42 Dose: 15 mg/hr, 15 mls/hr Documented By: ES Magnesium Hydroxide (Milk Of Magnesia 30 Ml Oral.Susp) 30 ml PO DAILY PRN PRN Reason: Constipation Melatonin (Melatonin 3 Mg Tablet) 6 mg PO BEDTIME PRN PRN Reason: Insomnia Metoprolol Tartrate (Metoprolol Tartrate 50 Mg Tablet) 50 mg PO BID [facility]; Protocol Last Admin: 09/05/25 09:01 Dose: 50 mg Documented By: ES Nitroglycerin (Nitroglycerin 2 % Oint 1 Gm Packet) 1 inch TRANSDERMA RQ6H WHILE AWAKE PRN PRN Reason: Chest Pain Non-Formulary Medication (Febuxostat [Uloric]) 40 mg PO DAILY [facility] Ondansetron HCl (Ondansetron Hcl 4 Mg/2 Ml Vial) 4 mg IVPUSH Q8H PRN PRN Reason: Nausea and Vomiting Sodium Chloride (0.9 % Sodium Chloride Flush 3 Ml Syringe) 3 ml IVFLUSH QSHIFT [facility] Last Admin: 09/05/25 09:35 Dose: Not Given Documented By: ES Non-Admin Reason: IV Running Sodium Zirconium Cyclosilicate (Sodium Zirconium Cyclosilicate 10 Gm Powd.Pack) 10 gm PO MOWEFR PRN PRN Reason: high potassium Vitamin D (Cholecalciferol (Vitamin D3) 25 Mcg Tablet) 25 mcg PO DAILY [facility] Last Admin: 09/05/25 09:00 Dose: 25 mcg Documented By: ES Labs 09/03/25 05:15 09/05/25 06:52 Labs: Laboratory Results - last 24 hr 09/04/25 09/05/25 14:13 06:52 Anion Gap 18 Estim Creat Clear Calc 13.0 Estimated GFR 11 Random Glucose 100 Calcium 9.1 Hep Bs Antigen Negative Hep Bs Antibody NONREACTIVE Hep B Core Total Ab Nonreactive Assessment and Plan (1) Noncompliance with medication regimen: Status: Acute (2) Atrial fibrillation: Status: Acute (3) Acute on chronic kidney failure: Status: Acute (4) Metabolic encephalopathy: Status: Acute Plan 75/m with AFIB, chronic systolic heart failure, HLD, HTN, with medication noncompliance, was admitted to hospital for acute decompensated heart failure with pulmonary edema, acute hypoxic respiratory failure, acute on chronic kidney injury, hyperkalemia and encephalopathy. Patient required IV Lasix drip, started on hemodialysis on 09/04. Acute decompensated heart failure with volume overload, likely precipitated by medication noncompliance, and cardiorenal syndrome, now ESRD, improving -status post IV Lasix drip, we will continue with dialysis to decrease fluid overload. Sodium and fluid restriction GONZALO on CKD, with biopsy-proven chronic interstitial nephritis -patient initiated on renal replacement therapy on 09/04, plans on having dialysis today and 3rd session tomorrow. -nephrology following Hyperkalemia, likely secondary to ESRD monitor K, avoid nephrotoxic and potassium-sparing medications will be avoided. Continue with dialysis Atrial fibrillation now RVR -continue with metoprolol, we will initiate p.r.n. medications INR on 09/04, 4.8. We will order repeat labs, we will start warfarin once INR between 2 and 3. Hyperlipidemia, chronic -continue atorvastatin 80 mg q.d. Toxic metabolic encephalopathy, likely secondary to decompensated end-stage renal disease, improved Continue with dialysis, monitor for any signs of fever, hypotension Medication noncompliance. Case management and social work will be involved for medication education and discharge planning and likely dc with [facility]NA FEN: Fluid restriction, replete as needed, salt restriction DVT PPx: Not indicated at this time, INR elevation Quality Stroke Does the patient have a stroke diagnosis?: No VTE Prior VTE?: No VTE Risk Level:: Medical - moderate - high VTE Device Contraindication: Treatment Not Indicated VTE Drug Contraindication: N/A - Med Ordered
--- NOTE | 2025-09-05 15:56 | MHC.CM.PN ---
EMR REVIEWED AND PER MD ROUNDS, PATIENT IS NOT MEDICALLY CLEARED FOR DISCHARGE DUE TO MANAGEMENT OF CHF EXACERBATION, AND ACUTE ON CHRONIC KIDNEY FAILURE.
[2025-09-05] MEDS: 0.9 % Sodium Chloride Flush 3 ML SYRINGE IVFLUSH (22:24)
[2025-09-06 03:29] VITALS: BP 102/62; PULSE 94; RESP 16; TEMP 36.9; O2SAT 97
[2025-09-06 07:14] LABS: INTERNATIONAL NORM RATIO 3.8 (0.9-1.1); Prothrombin Time 43.9 SEC (10.9-12.4)
[2025-09-06 07:39] LABS: Iron 35 mcg/dL (45-160); Percent Iron Saturation 20 % (15-50); Total Iron Binding Capacity 173 mcg/dL (228-428); Unsaturated Iron Binding 138 ug/dL
[2025-09-06 07:44] LABS: Anion Gap 15 (12-20); Blood Urea Nitrogen 46 mg/dL (9-16); Calcium 8.8 mg/dL (8.4-10.2); Carbon Dioxide 25 mmol/L (22-29); Chloride 103 mmol/L (96-108); Creatinine Clr Calc Pharmacy 16.5; Estimated Glomerular Filt Rate 15; Potassium 4.1 mmol/L (3.3-5.1); Sodium 139 mmol/L (135-145)
[2025-09-06 07:56] LABS: Anion Gap 15 (12-20); Blood Urea Nitrogen 47 mg/dL (9-16); Calcium 8.7 mg/dL (8.4-10.2); Carbon Dioxide 25 mmol/L (22-29); Chloride 103 mmol/L (96-108); Creatinine Clr Calc Pharmacy 16.5; Estimated Glomerular Filt Rate 15; Potassium 4.0 mmol/L (3.3-5.1); Sodium 139 mmol/L (135-145)
[2025-09-06 07:59] LABS: Ferritin 518 ng/mL (20-250)
[2025-09-06 12:00] VITALS: BP 124/63; PULSE 97; RESP 18; TEMP 37.4; O2SAT 94
--- NOTE | 2025-09-06 13:30 | PM.PNCARD ---
Subjective Subjective Date of Service: 09/06/25 Interval history: Seen examined at bedside. He is feeling better. Continues to be in AFib. Physical Exam Vital Signs: Last Vital Signs Temp 99.3 F 09/06/25 12:00 Pulse 97 09/06/25 12:00 Resp 18 09/06/25 12:00 BP 124/63 09/06/25 12:00 Pulse Ox 94 09/06/25 12:00 O2 Del Method Room Air 09/06/25 12:00 O2 Flow Rate 2 09/04/25 20:00 FiO2 24 09/03/25 12:10 BMI result Body Mass Index 31.1 GENERAL APPEARANCE: in no acute distress. NECK: no carotid bruit, no jugular venous distention. SKIN: no suspicious lesions, warm and dry. HEART: No murmur, irregular rate and rhythm. LUNGS: Clear to auscultation. ABDOMEN: soft, nontender. EXTREMITIES: 1 + edema. PERIPHERAL PULSES: equal. NEUROLOGIC: No gross deficits, AAO X 3. cataract left eye Objective Labs and Meds 09/03/25 05:15 09/06/25 06:38 Lab results: Laboratory Results - last 24 hr 09/06/25 09/06/25 09/06/25 06:38 06:38 06:38 Hold Purple Top PT 43.9 H INR 3.8 H Sodium 139 139 Potassium 4.0 4.1 Chloride 103 Carbon Dioxide Anion Gap BUN Creatinine Estim Creat Clear Calc Estimated GFR Random Glucose Calcium Iron TIBC % Saturation Unsat Iron Binding Ferritin 09/06/25 09/06/25 09/06/25 06:38 06:38 06:38 Hold Purple Top PT INR Sodium Potassium Chloride 103 Carbon Dioxide 25 25 Anion Gap 15 15 BUN 47 H Creatinine Estim Creat Clear Calc Estimated GFR Random Glucose Calcium Iron TIBC % Saturation Unsat Iron Binding Ferritin 09/06/25 09/06/25 09/06/25 06:38 06:38 06:38 Hold Purple Top PT INR Sodium Potassium Chloride Carbon Dioxide Anion Gap BUN 46 H Creatinine 4.00 H* 3.99 H Estim Creat Clear Calc 16.5 16.5 Estimated GFR 15 Random Glucose Calcium Iron TIBC % Saturation Unsat Iron Binding Ferritin 09/06/25 09/06/25 09/06/25 06:38 06:38 06:38 Hold Purple Top PT INR Sodium Potassium Chloride Carbon Dioxide Anion Gap BUN Creatinine Estim Creat Clear Calc Estimated GFR 15 Random Glucose 110 110 Calcium 8.7 8.8 Iron 35 L TIBC 173 L % Saturation 20 Unsat Iron Binding 138 Ferritin 518 H 09/06/25 06:49 Hold Purple Top SEE NOTE PT INR Sodium Potassium Chloride Carbon Dioxide Anion Gap BUN Creatinine Estim Creat Clear Calc Estimated GFR Random Glucose Calcium Iron TIBC % Saturation Unsat Iron Binding Ferritin Progress Note: A&P Assessment and plan (1) HTN (hypertension): Status: Acute (2) Acute exacerbation of congestive heart failure: Status: Acute (3) Acute on chronic kidney failure: Status: Acute Plan 75 male with CHF and acute on chronic renal failure. He was hypertensive and overloaded. He was on Lasix drip with improvement in volume status and given significant derangement metabolically he underwent hemodialysis. He has a neck line and we will be undergoing hemodialysis as outpatient going forward. His echocardiography has shown EF of 35-40% and moderate mitral regurgitation. He overall is getting better with hemodialysis and fluid removal. I do not hear the MR murmur today. Change metoprolol tartrate to succinate 150 mg daily. Stop the Cardizem drip. We will titrate beta-blockers 1st and would use Cardizem if needed because of low EF. We will follow along with you. Thank you for allowing me to participate in the care of your patient. Please feel free to contact me if you have any questions. Time Spent With Patient Time: Total time managing care of this patient today ____ minutes. Progress Note: Quality Stroke Does the patient have a stroke diagnosis?: No Procedures Date of Service Date of Service: 09/06/25
[2025-09-06 14:15] VITALS: BP 102/62; PULSE 73
[2025-09-06] MEDS: Metoprolol Succinate ER 50 MG TAB.ER.24H 150 MG PO (15:02)
--- NOTE | 2025-09-06 15:10 | P.PNIM_ITS ---
Subjective Subjective Date of Service: 09/06/25 Interval History: Patient seen examined at bedside this morning, alert and oriented. Family at bedside. Patient mentions that he is feels better, spoke with Nephrology, has appointment for dialysis on Monday and Saturdays, earlier during the day 1 for dialysis. Plans on going for dialysis on Monday, to coordinate with case management to help with dialysis. Denies any lower extremity spasms. Physical Exam 2 Exam: Exam: General: AxOx3, No acute distress Head: AT/NC ENT: Moist mucous membranes Neck: supple CVS; irregular RR, S1 S2 normal Lungs: Clear bilateral breath sounds, no wheezes or crackles Abd: Soft non tender, non distended Ext: LE edema MSK: moving all 4 limbs Skin: No cyanosis Psych: Cooperative with exam Neurology: no focal deficit Vital Signs: Vital Signs: Last Vital Signs Temp 99.3 F 09/06/25 12:00 Pulse 73 09/06/25 14:15 Resp 18 09/06/25 12:00 BP 102/62 09/06/25 14:15 Pulse Ox 94 09/06/25 12:00 O2 Del Method Room Air 09/06/25 12:00 O2 Flow Rate 2 09/04/25 20:00 FiO2 24 09/03/25 12:10 BMI result Body Mass Index 31.1 Objective Data Active Medications Acetaminophen (Acetaminophen 325 Mg Tablet) 975 mg PO Q6H PRN PRN Reason: Pain, Mild 1-3,fever,headache Atorvastatin Calcium (Atorvastatin Calcium 80 Mg Tablet) 80 mg PO DAILY [facility] Last Admin: 09/06/25 10:47 Dose: 80 mg Documented By: KIKE Calcium Carbonate (Calcium Carbonate 750 Mg Tab.Chew) 750 mg PO Q4H PRN PRN Reason: Heartburn Fluticasone Propionate (Fluticasone Propionate Nasal 16 Gm [place]) 1 spray NOSTRIL-B DAILY [facility] Last Admin: 09/06/25 10:47 Dose: Not Given Documented By: KIKE Non-Admin Reason: Patient Refused Heparin Sodium (Porcine) (Heparin Sodium,Porcine 5,000 Unit/Ml Vial) 5,000 unit INTRACATH ONCE ONE Stop: 09/08/25 06:01 Magnesium Hydroxide (Milk Of Magnesia 30 Ml Oral.Susp) 30 ml PO DAILY PRN PRN Reason: Constipation Melatonin (Melatonin 3 Mg Tablet) 6 mg PO BEDTIME PRN PRN Reason: Insomnia Last Admin: 09/05/25 22:24 Dose: 6 mg Documented By: MARIO Metoprolol Succinate (Metoprolol Succinate Er 50 Mg Tab.Er.24h) 150 mg PO DAILY [facility]; Protocol Last Admin: 09/06/25 15:02 Dose: 150 mg Documented By: KIKE Nitroglycerin (Nitroglycerin 2 % Oint 1 Gm Packet) 1 inch TRANSDERMA RQ6H WHILE AWAKE PRN PRN Reason: Chest Pain Non-Formulary Medication (Febuxostat [Uloric]) 40 mg PO DAILY [facility] Ondansetron HCl (Ondansetron Hcl 4 Mg/2 Ml Vial) 4 mg IVPUSH Q8H PRN PRN Reason: Nausea and Vomiting Sodium Chloride (0.9 % Sodium Chloride Flush 3 Ml Syringe) 3 ml IVFLUSH QSHIFT MATTHEW Last Admin: 09/06/25 14:15 Dose: Not Given Documented By: KIKE Non-Admin Reason: Previously Administered Sodium Zirconium Cyclosilicate (Sodium Zirconium Cyclosilicate 10 Gm Powd.Pack) 10 gm PO MOWEFR PRN PRN Reason: high potassium Vitamin D (Cholecalciferol (Vitamin D3) 25 Mcg Tablet) 25 mcg PO DAILY [facility] Last Admin: 09/06/25 10:47 Dose: 25 mcg Documented By: KIKE Labs 09/03/25 05:15 09/06/25 06:38 Labs: Laboratory Results - last 24 hr 09/06/25 09/06/25 09/06/25 06:38 06:38 06:38 Hold Purple Top PT 43.9 H INR 3.8 H Anion Gap 15 15 Estim Creat Clear Calc 16.5 16.5 Estimated GFR 15 Random Glucose Calcium Iron TIBC % Saturation Unsat Iron Binding Ferritin 09/06/25 09/06/25 09/06/25 06:38 06:38 06:38 Hold Purple Top PT INR Anion Gap Estim Creat Clear Calc Estimated GFR 15 Random Glucose 110 110 Calcium 8.7 8.8 Iron 35 L TIBC 173 L % Saturation 20 Unsat Iron Binding 138 Ferritin 518 H 09/06/25 06:49 Hold Purple Top SEE NOTE PT INR Anion Gap Estim Creat Clear Calc Estimated GFR Random Glucose Calcium Iron TIBC % Saturation Unsat Iron Binding Ferritin Assessment and Plan (1) Atrial fibrillation: Status: Acute (2) Acute on chronic kidney failure: Status: Acute (3) ESRD (end stage renal disease): Status: Acute Plan 75/m with AFIB, chronic systolic heart failure, HLD, HTN, with medication noncompliance, was admitted to hospital for acute decompensated heart failure with pulmonary edema, acute hypoxic respiratory failure, acute on chronic kidney injury, hyperkalemia and encephalopathy. Patient required IV Lasix drip, started on hemodialysis on 09/04. Acute decompensated heart failure with volume overload, likely precipitated by medication noncompliance, and cardiorenal syndrome, now ESRD, improving -status post IV Lasix drip, we will continue with dialysis to decrease fluid overload. Sodium and fluid restriction GONZALO on CKD, with biopsy-proven chronic interstitial nephritis -patient initiated on renal replacement therapy on 09/04, dialysis earlier this am Creatinine today improved 3.9<- 5.0 -nephrology following -plans on dialysis on Monday, later will likely schedule on , , Mon Hyperkalemia, likely secondary to ESRD monitor K, avoid nephrotoxic and potassium-sparing medications will be avoided. Continue with dialysis Atrial fibrillation now RVR Supratherapeutic INR, improving, INR on 09/04, 4.8. INR today 3.8 -continue with metoprolol, we will initiate p.r.n. medications We will start warfarin once INR between 2 and 3, Hyperlipidemia, chronic -continue atorvastatin 80 mg q.d. Toxic metabolic encephalopathy, likely secondary to decompensated end-stage renal disease, resolved Continue with dialysis, monitor for any signs of fever, hypotension Medication noncompliance. Case management and social work will be involved for medication education and discharge planning and likely dc with VNA FEN: Fluid restriction, replete as needed, salt restriction DVT PPx: Not indicated at this time, INR elevation Quality Stroke Does the patient have a stroke diagnosis?: No VTE Prior VTE?: No VTE Risk Level:: Medical - moderate - high VTE Device Contraindication: Treatment Not Indicated VTE Drug Contraindication: N/A - Med Ordered
[2025-09-06 15:24] VITALS: BP 109/73; PULSE 100; RESP 18; TEMP 37.3; O2SAT 94
[2025-09-06 19:31] VITALS: BP 110/67; PULSE 111; RESP 17; TEMP 36.7; O2SAT 93
[2025-09-06] MEDS: 0.9 % Sodium Chloride Flush 3 ML SYRINGE IVFLUSH (21:54)
[2025-09-07] VITALS (7 sets, daily range): BP systolic 93–131; BP diastolic 58–82; PULSE 98–118; RESP 16–18; TEMP 36.4–37.1; O2SAT 94–99
[2025-09-07 07:59] LABS: Anion Gap 16 (12-20); Blood Urea Nitrogen 46 mg/dL (9-16); Calcium 9.0 mg/dL (8.4-10.2); Carbon Dioxide 27 mmol/L (22-29); Chloride 101 mmol/L (96-108); Potassium 4.1 mmol/L (3.3-5.1); Sodium 140 mmol/L (135-145)
[2025-09-07 08:01] LABS: Creatinine Clr Calc Pharmacy 13.1; Estimated Glomerular Filt Rate 11
[2025-09-07] MEDS: Metoprolol Succinate ER 50 MG TAB.ER.24H 150 MG PO (09:49)
--- NOTE | 2025-09-07 14:38 | HO.PM.IMPN ---
Subjective Subjective Date of Service: 09/07/25 Interval History: Patient seen examined at bedside this morning, patient lying comfortably in bed eating breakfast. Patient states that he is feeling well. Plans on dialysis tomorrow. Review of Systems Review of Systems: Yes all other systems are reviewed and are negative Physical Exam Exam: Exam: General: AxOx3, No acute distress Head: AT/NC ENT: Moist mucous membranes Neck: supple CVS; irregular RR, S1 S2 normal Lungs: Clear bilateral breath sounds, no wheezes or crackles Abd: Soft non tender, non distended Ext: LE edema MSK: moving all 4 limbs Skin: No cyanosis Psych: Cooperative with exam Neurology: no focal deficit Vital Signs: Vital Signs: Last Vital Signs Temp 97.8 F 09/07/25 11:24 Pulse 100 09/07/25 11:24 Resp 18 09/07/25 11:24 BP 113/64 09/07/25 11:24 Pulse Ox 96 09/07/25 11:24 O2 Del Method Room Air 09/07/25 11:24 O2 Flow Rate 2 09/04/25 20:00 FiO2 24 09/03/25 12:10 BMI result Body Mass Index 31.1 Objective Data Active Medications Acetaminophen (Acetaminophen 325 Mg Tablet) 975 mg PO Q6H PRN PRN Reason: Pain, Mild 1-3,fever,headache Atorvastatin Calcium (Atorvastatin Calcium 80 Mg Tablet) 80 mg PO DAILY [facility] Last Admin: 09/07/25 09:50 Dose: 80 mg Documented By: KIKE Calcium Carbonate (Calcium Carbonate 750 Mg Tab.Chew) 750 mg PO Q4H PRN PRN Reason: Heartburn Fluticasone Propionate (Fluticasone Propionate Nasal 16 Gm [place]) 1 spray NOSTRIL-B DAILY [facility] Last Admin: 09/07/25 09:50 Dose: Not Given Documented By: KIKE Non-Admin Reason: Patient Refused Heparin Sodium (Porcine) (Heparin Sodium,Porcine 5,000 Unit/Ml Vial) 5,000 unit INTRACATH ONCE ONE Stop: 09/08/25 06:01 Magnesium Hydroxide (Milk Of Magnesia 30 Ml Oral.Susp) 30 ml PO DAILY PRN PRN Reason: Constipation Melatonin (Melatonin 3 Mg Tablet) 6 mg PO BEDTIME PRN PRN Reason: Insomnia Last Admin: 09/06/25 21:54 Dose: 6 mg Documented By: MARIO Comments: per pt request Metoprolol Succinate (Metoprolol Succinate Er 50 Mg Tab.Er.24h) 150 mg PO DAILY [facility]; Protocol Last Admin: 09/07/25 09:49 Dose: 150 mg Documented By: KIKE Nitroglycerin (Nitroglycerin 2 % Oint 1 Gm Packet) 1 inch TRANSDERMA RQ6H WHILE AWAKE PRN PRN Reason: Chest Pain Non-Formulary Medication (Febuxostat [Uloric]) 40 mg PO DAILY [facility] Ondansetron HCl (Ondansetron Hcl 4 Mg/2 Ml Vial) 4 mg IVPUSH Q8H PRN PRN Reason: Nausea and Vomiting Sodium Chloride (0.9 % Sodium Chloride Flush 3 Ml Syringe) 3 ml IVFLUSH QSHIFT [facility] Last Admin: 09/07/25 13:03 Dose: Not Given Documented By: KIKE Non-Admin Reason: IV Running Sodium Zirconium Cyclosilicate (Sodium Zirconium Cyclosilicate 10 Gm Powd.Pack) 10 gm PO MOWEFR PRN PRN Reason: high potassium Vitamin D (Cholecalciferol (Vitamin D3) 25 Mcg Tablet) 25 mcg PO DAILY [facility] Last Admin: 09/07/25 09:49 Dose: 25 mcg Documented By: KIKE Labs 09/03/25 05:15 09/07/25 06:55 Labs: Laboratory Results - last 24 hr 09/07/25 06:55 Hold Purple Top SEE NOTE Anion Gap 16 Estim Creat Clear Calc 13.1 Estimated GFR 11 Random Glucose 99 Calcium 9.0 Assessment and Plan (1) Acute exacerbation of congestive heart failure: Status: Acute (2) Atrial fibrillation: Status: Acute (3) Acute kidney injury superimposed on CKD: Status: Acute Plan 75/m with AFIB, chronic systolic heart failure, HLD, HTN, with medication noncompliance, was admitted to hospital for acute decompensated heart failure with pulmonary edema, acute hypoxic respiratory failure, acute on chronic kidney injury, hyperkalemia and encephalopathy. Patient required IV Lasix drip, started on hemodialysis on 09/04. Acute decompensated heart failure with volume overload, likely precipitated by medication noncompliance, and cardiorenal syndrome, now ESRD, improving -status post IV Lasix drip, we will continue with dialysis to decrease fluid overload. Sodium and fluid restriction GONZALO on CKD, with biopsy-proven chronic interstitial nephritis, stable -patient initiated on renal replacement therapy on 09/04 -nephrology following -plans on dialysis on Monday, later will likely schedule on , Mon Hyperkalemia, likely secondary to ESRD monitor K, avoid nephrotoxic and potassium-sparing medications will be avoided. Continue with dialysis Atrial fibrillation now RVR Supratherapeutic INR, improving, most recent INR 3.8 -continue with metoprolol, we will initiate p.r.n. medications will start eliquis once INR is less than 2. PT/INR ordered Hyperlipidemia, chronic -continue atorvastatin 80 mg q.d. Medication noncompliance. Case management and social work will be involved for medication education and discharge planning and likely dc with VNA FEN: Fluid restriction, replete as needed, salt restriction DVT PPx: Not indicated at this time, INR elevation Quality Stroke Does the patient have a stroke diagnosis?: No VTE Prior VTE?: No VTE Risk Level:: Medical - moderate - high VTE Device Contraindication: Treatment Not Indicated VTE Drug Contraindication: N/A - Med Ordered
[2025-09-07 15:35] LABS: INTERNATIONAL NORM RATIO 2.2 (0.9-1.1); Prothrombin Time 24.7 SEC (10.9-12.4)
--- NOTE | 2025-09-07 16:37 | PC.NURSE ---
visitor use assistant at bedside for assessment and med pass. md informed pt has not voided but bladder scan is only 61cc post sin removeal
[2025-09-07] MEDS: 0.9 % Sodium Chloride Flush 3 ML SYRINGE IVFLUSH (22:29)
[2025-09-08 03:45] VITALS: BP 125/77; PULSE 110; RESP 16; TEMP 36.6; O2SAT 96
[2025-09-08 06:47] LABS: Anion Gap 16 (12-20); Blood Urea Nitrogen 57 mg/dL (9-16); Calcium 8.7 mg/dL (8.4-10.2); Carbon Dioxide 24 mmol/L (22-29); Chloride 99 mmol/L (96-108); Creatinine Clr Calc Pharmacy 10.8; Estimated Glomerular Filt Rate 9; Potassium 4.1 mmol/L (3.3-5.1); Sodium 135 mmol/L (135-145)
[2025-09-08 07:40] VITALS: BP 101/69; PULSE 106; RESP 20; TEMP 36.8; O2SAT 95
--- NOTE | 2025-09-08 10:51 | MHC.CM.PN ---
THIS CM PLACED CALL TO [facility], MESSAGE LEFT WITH CLINICAL DEPORTATION OFFICER, AWAITING RETURN CALL.
[2025-09-08 12:00] VITALS: BP 123/65; PULSE 112; RESP 20; TEMP 36.3; O2SAT 97
--- NOTE | 2025-09-08 14:39 | MHC.CM.PN ---
THIS CM PLACED SECOND CALL TO CLINICAL DIRECTOR MYRTLE AT [facility]. PER MYRTLE, THEY HAVE THE PATIENT WITH A START DATE OF TUESDAY 09/11 FOR HD AT THEIR CENTER, WITH A 6:10AM ARRIVAL TIME, AND 6:30AM CHAIR TIME. THIS CM MET WITH PATIENT AND HIS DAUGHTER PRESENT AT BEDSIDE TO DISCUSS TRANSPORT TO AND FROM HD. PER PATIENTS DAUGHTER HER AND HER BROTHER WILL PROVIDE THE TRANSPORT FOR THEIR FATHER TO AND FROM HD. DP: PATIENT TO DISCHARGE TOMORROW 09/09 AFTER HD, THEN FAMILY WILL TRANSPORT HIM HOME, FAMILY TO PROVIDE RIDES FOR HIM TO AND FROM HD STARTING ON TUESDAY 09/11.
--- NOTE | 2025-09-08 15:52 | P.PNIM_ITS ---
Subjective Subjective Date of Service: 09/08/25 Interval History: Patient seen examined at bedside this morning, patient states that he is feeling better, with plans on possible discharging, after speaking with case management, patient does not have dialysis bed available for tomorrow, we will keep today, consult IR for PermCath placement. Once PermCath is placed and patient has available bed, we will discharge. Review of Systems Review of Systems: Yes all other systems are reviewed and are negative Physical Exam 2 Exam: Exam: General: AxOx3, No acute distress Head: AT/NC ENT: Moist mucous membranes Neck: supple CVS; irregular RR, S1 S2 normal Lungs: Clear bilateral breath sounds, no wheezes or crackles Abd: Soft non tender, non distended Ext: LE edema MSK: moving all 4 limbs Skin: No cyanosis Psych: Cooperative with exam Neurology: no focal deficit Vital Signs: Vital Signs: Last Vital Signs Temp 97.4 F 09/08/25 12:00 Pulse 112 H 09/08/25 12:00 Resp 20 09/08/25 12:00 BP 123/65 09/08/25 12:00 Pulse Ox 97 09/08/25 12:00 O2 Del Method Room Air 09/08/25 12:00 O2 Flow Rate 2 09/04/25 20:00 FiO2 24 09/03/25 12:10 BMI result Body Mass Index 31.1 Objective Data Active Medications Acetaminophen (Acetaminophen 325 Mg Tablet) 975 mg PO Q6H PRN PRN Reason: Pain, Mild 1-3,fever,headache Atorvastatin Calcium (Atorvastatin Calcium 80 Mg Tablet) 80 mg PO DAILY [facility] Last Admin: 09/08/25 08:03 Dose: 80 mg Documented By: KAYLA Calcium Carbonate (Calcium Carbonate 750 Mg Tab.Chew) 750 mg PO Q4H PRN PRN Reason: Heartburn Fluticasone Propionate (Fluticasone Propionate Nasal 16 Gm [place]) 1 spray NOSTRIL-B DAILY [facility] Last Admin: 09/08/25 12:47 Dose: 1 spray Documented By: KAYLA Magnesium Hydroxide (Milk Of Magnesia 30 Ml Oral.Susp) 30 ml PO DAILY PRN PRN Reason: Constipation Melatonin (Melatonin 3 Mg Tablet) 6 mg PO BEDTIME PRN PRN Reason: Insomnia Last Admin: 09/06/25 21:54 Dose: 6 mg Documented By: MARIO Comments: per pt request Metoprolol Succinate (Metoprolol Succinate Er 50 Mg Tab.Er.24h) 150 mg PO DAILY [facility]; Protocol Last Admin: 09/08/25 08:14 Dose: Not Given Documented By: KAYLA Non-Admin Reason: Physician Held Med Nitroglycerin (Nitroglycerin 2 % Oint 1 Gm Packet) 1 inch TRANSDERMA RQ6H WHILE AWAKE PRN PRN Reason: Chest Pain Ondansetron HCl (Ondansetron Hcl 4 Mg/2 Ml Vial) 4 mg IVPUSH Q8H PRN PRN Reason: Nausea and Vomiting Sodium Chloride (0.9 % Sodium Chloride Flush 3 Ml Syringe) 3 ml IVFLUSH QSHIFT [facility] Last Admin: 09/08/25 09:17 Dose: Not Given Documented By: KAYLA Non-Admin Reason: Off unit: Dialysis Sodium Zirconium Cyclosilicate (Sodium Zirconium Cyclosilicate 10 Gm Powd.Pack) 10 gm PO MOWEFR PRN PRN Reason: high potassium Vitamin D (Cholecalciferol (Vitamin D3) 25 Mcg Tablet) 25 mcg PO DAILY [facility] Last Admin: 09/08/25 08:03 Dose: 25 mcg Documented By: KAYLA Labs 09/03/25 05:15 09/08/25 06:07 Labs: Laboratory Results - last 24 hr 09/07/25 09/08/25 15:13 06:07 PT 24.7 H D INR 2.2 H Anion Gap 16 Estim Creat Clear Calc 10.8 Estimated GFR 9 Random Glucose 98 Calcium 8.7 Assessment and Plan (1) Atrial fibrillation: Status: Acute (2) CKD (chronic kidney disease) stage 5, GFR less than 15 ml/min: Status: Acute Plan 75/m with AFIB, chronic systolic heart failure, HLD, HTN, with medication noncompliance, was admitted to hospital for acute decompensated heart failure with pulmonary edema, acute hypoxic respiratory failure, acute on chronic kidney injury, hyperkalemia and encephalopathy. Patient required IV Lasix drip, started on hemodialysis on 09/04. Acute decompensated heart failure with volume overload, likely precipitated by medication noncompliance, and cardiorenal syndrome, now ESRD, improving -status post IV Lasix drip, we will continue with dialysis to decrease fluid overload. Sodium and fluid restriction CKD, with biopsy-proven chronic interstitial nephritis, stable -patient initiated on renal replacement therapy on 09/04 -nephrology following -had dialysis today, later will likely schedule on , , Sat, spoke with nephro, will plan for permacath placement with IR, will do dialysis tomorrow at hospital Hyperkalemia, likely secondary to ESRD monitor K, avoid nephrotoxic and potassium-sparing medications will be avoided. Continue with dialysis Atrial fibrillation now RVR Supratherapeutic INR, resolved, INR right now 2.2 -continue with metoprolol, we will initiate p.r.n. medications will start eliquis 2.5mg BID after permacath placement Hyperlipidemia, chronic -continue atorvastatin 80 mg q.d. Medication noncompliance. Case management and social work will be involved for medication education and discharge planning and likely dc with VNA FEN: Fluid restriction, replete as needed, salt restriction DVT PPx: Not indicated at this time, INR elevation Quality Stroke Does the patient have a stroke diagnosis?: No VTE Prior VTE?: No VTE Risk Level:: Medical - moderate - high VTE Device Contraindication: Treatment Not Indicated VTE Drug Contraindication: N/A - Med Ordered
[2025-09-08 15:59] VITALS: BP 129/62; PULSE 95; RESP 20; TEMP 36.7; O2SAT 99
--- NOTE | 2025-09-08 16:14 | W.PM.DNNEP ---
Subjective Subjective Date of Service: 09/08/25 This patient was seen during dialysis. Interval history: Seen during dialysis this morning, tolerated 3.5 hours session very well without any issues.. Physical Exam Vital Signs: Vital Signs: Last Vital Signs Temp 98.1 F 09/08/25 15:59 Pulse 95 09/08/25 15:59 Resp 20 09/08/25 15:59 BP 129/62 09/08/25 15:59 Pulse Ox 99 09/08/25 15:59 O2 Del Method Room Air 09/08/25 15:59 O2 Flow Rate 2 09/04/25 20:00 FiO2 24 09/03/25 12:10 BMI result Body Mass Index 31.1 General: Elderly male in no acute distress, comfortable Nutritional Appearance: well nourished and overweight Eyes: appearance normal, both eyes and all related structures; Alignment and Position: alignment normal and position normal Neck: No lymphadenopathy, no thyromegaly Resp: bilateral air entry equal, occasional added sounds present Cardio: Regular rate, regular rhythm; Heart sounds: S1 normal heart sound present and S2 normal heart sound present GI: soft, nontender, no guarding, no hepatosplenomegaly : bladder normal to inspection, bladder normal to palpation, no renal angle tenderness Skin: no rashes or lesions noted and elasticity normal Neuro: oriented to person, oriented to place, oriented to time and moves all extremities Assessment & Plan Assessment and plan (1) HTN (hypertension): Status: Acute (2) Metabolic encephalopathy: Status: Acute (3) ESRD (end stage renal disease): Status: Acute Plan End-stage renal disease: Patient has chronic kidney disease stage 5 secondary to biopsy-proven chronic interstitial nephritis admitted with significant uremic symptoms including cough uremic encephalopathy, volume overload, lower extremity tremors, decreased appetite. He is initiated on renal replacement therapy received 4 sessions of hemodialysis so far. Has an outpatient HD spot in [facility] in [facility] in [place] on /Sat at 6.30 AM. Leader Writer in hospital needs to reach out to clinical quality manager( Tee) in dialysis unit prior to D/C( ). 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 Hypertension: blood pressures should improve after initiating HD and correcting the volume status. continue metoprolol as he has history of atrial fibrillation Time Spent With Patient Time: Total time managing care of this patient today ____ minutes. Procedures Date of Service Date of Service: 09/08/25
[2025-09-08] MEDS: 0.9 % Sodium Chloride Flush 3 ML SYRINGE IVFLUSH ×2 (17:01→19:49)
[2025-09-08 19:16] VITALS: BP 120/86; PULSE 115; RESP 16; TEMP 37.5; O2SAT 96
[2025-09-08 23:13] VITALS: BP 108/57; PULSE 110; RESP 16; TEMP 36.4; O2SAT 93
[2025-09-09] VITALS (8 sets, daily range): BP systolic 115–139; BP diastolic 76–98; PULSE 74–136; RESP 16–19; TEMP 36.3–36.9; O2SAT 92–97
[2025-09-09] MEDS: Metoprolol Succinate ER 50 MG TAB.ER.24H 150 MG PO (08:28)
[2025-09-09] MEDS: 0.9 % Sodium Chloride Flush 3 ML SYRINGE IVFLUSH ×2 (08:29→16:21)
--- NOTE | 2025-09-09 11:39 | P.PNNPD_ITS ---
Subjective Subjective Date of Service: 09/09/25 This patient was seen during dialysis. Interval history: Getting another session of dialysis today, tolerating well no issues so. Physical Exam Vital Signs: Vital Signs: Last Vital Signs Temp 97.4 F 09/09/25 11:35 Pulse 74 09/09/25 11:35 Resp 19 09/09/25 11:35 BP 127/98 H 09/09/25 11:35 Pulse Ox 92 09/09/25 11:35 O2 Del Method Room Air 09/09/25 11:35 O2 Flow Rate 2 09/04/25 20:00 FiO2 24 09/03/25 12:10 BMI result Body Mass Index 31.1 General: Elderly male in no acute distress, comfortable lying in bed Nutritional Appearance: well nourished and overweight Eyes: appearance normal, both eyes and all related structures; Alignment and Position: alignment normal and position normal Neck: No lymphadenopathy, no thyromegaly Resp: bilateral air entry equal, occasional added sounds present Cardio: Regular rate, regular rhythm; Heart sounds: S1 normal heart sound present and S2 normal heart sound present GI: soft, nontender, no guarding, no hepatosplenomegaly : bladder normal to inspection, bladder normal to palpation, no renal angle tenderness Skin: no rashes or lesions noted and elasticity normal Neuro: oriented to person, oriented to place, oriented to time and moves all extremities Assessment & Plan Assessment and plan (1) ESRD (end stage renal disease): Status: Acute (2) Anemia: Status: Acute (3) HTN (hypertension): Status: Acute Plan End-stage renal disease: Patient has chronic kidney disease stage 5 secondary to biopsy-proven chronic interstitial nephritis admitted with significant uremic symptoms including cough uremic encephalopathy, volume overload, lower extremity tremors, decreased appetite. He is initiated on renal replacement therapy received 5sessions of hemodialysis so far. He is planned for maintenance hemodialysis , he has an outpatient HD spot in [facility] in [facility] in [place] on /Sat at 6.30 AM. Since his outpatient dialysis sessions are TTS, so receiving additional session today to fall in schedule. Can be discharged home once Permacath placed. 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 continue metoprolol as he has history of atrial fibrillation Time Spent With Patient Time: Total time managing care of this patient today ____ minutes. Procedures Date of Service Date of Service: 09/09/25
[2025-09-09] MEDS: Albumin Human 25 % 100 ML 133.33 ML IV ×2 (13:24→14:51)
--- NOTE | 2025-09-09 15:29 | MHC.CM.PN ---
Addendum entered by Kia Brooke 09/09/25 16:13: PT EVALUATED PATIENT AND ARE RECOMMENDING STR. THIS CM SPOKE WITH PATIENTS SON/HCP, HE IS IN AGREEMENT WITH THIS CM PLACING STR REFERRALS TODAY. STR REFERRALS PLACED IN [place], AWAITING BED OFFER, WILL REVIEW OPTIONS WITH PATIENT AND FAMILY TOMORROW. Original Note: PER MD, PATIENT IS NOT MEDICALLY CLEARED FOR TODAY, PATIENT WAS MORE DECOMPENSATED TODAY POST HD WITH HYPOTENSION/VOMITING. MD ORDERING A PT EVAL FOR PATIENT, HE MAY BENEFIT FROM STR AT DISCHARGE.
--- NOTE | 2025-09-09 15:38 | HO.PM.IMPN ---
Subjective Subjective Date of Service: 09/09/25 Interval History: Patient seen and examined at bedside this morning, with plans on going to dialysis later today, and possible discharge if PermCath is placed. During the day after dialysis, patient had episode of emesis, spoke with Nephrology who suggested on giving albumin IV. Review of Systems Review of Systems: Yes all other systems are reviewed and are negative Physical Exam Exam: Exam: General: AxOx3, No acute distress Head: AT/NC ENT: Moist mucous membranes Neck: supple CVS; irregular RR, S1 S2 normal Lungs: Clear bilateral breath sounds, no wheezes or crackles Abd: Soft non tender, non distended Ext: LE edema MSK: moving all 4 limbs Skin: No cyanosis Psych: Cooperative with exam Neurology: no focal deficit Vital Signs: Vital Signs: Last Vital Signs Temp 97.3 F 09/09/25 13:43 Pulse 120 H 09/09/25 13:43 Resp 18 09/09/25 13:43 BP 139/87 09/09/25 13:43 Pulse Ox 95 09/09/25 13:43 O2 Del Method Room Air 09/09/25 13:43 O2 Flow Rate 2 09/04/25 20:00 FiO2 24 09/03/25 12:10 BMI result Body Mass Index 31.1 Objective Data Active Medications Acetaminophen (Acetaminophen 325 Mg Tablet) 975 mg PO Q6H PRN PRN Reason: Pain, Mild 1-3,fever,headache Last Admin: 09/08/25 23:20 Dose: 975 mg Documented By: ARABELLA Atorvastatin Calcium (Atorvastatin Calcium 80 Mg Tablet) 80 mg PO DAILY COUNT INCLUDES THE [facility] Last Admin: 09/09/25 08:29 Dose: 80 mg Documented By: BILL Calcium Carbonate (Calcium Carbonate 750 Mg Tab.Chew) 750 mg PO Q4H PRN PRN Reason: Heartburn Last Admin: 09/08/25 17:55 Dose: 750 mg Documented By: KAYLA Fluticasone Propionate (Fluticasone Propionate Nasal 16 Gm [place]) 1 spray NOSTRIL-B DAILY COUNT INCLUDES THE [facility] Last Admin: 09/09/25 08:29 Dose: 1 spray Documented By: BILL Magnesium Hydroxide (Milk Of Magnesia 30 Ml Oral.Susp) 30 ml PO DAILY PRN PRN Reason: Constipation Melatonin (Melatonin 3 Mg Tablet) 6 mg PO BEDTIME PRN PRN Reason: Insomnia Last Admin: 09/06/25 21:54 Dose: 6 mg Documented By: MARIO Comments: per pt request Metoprolol Succinate (Metoprolol Succinate Er 50 Mg Tab.Er.24h) 150 mg PO DAILY COUNT INCLUDES THE [facility]; Protocol Last Admin: 09/09/25 08:28 Dose: 150 mg Documented By: BILL Metoprolol Tartrate (Metoprolol Tartrate 5 Mg/5 Ml Vial) 5 mg IVPUSH Q6H PRN; Protocol PRN Reason: Heart Rate >100 Last Admin: 09/09/25 04:16 Dose: 5 mg Documented By: ARABELLA Nitroglycerin (Nitroglycerin 2 % Oint 1 Gm Packet) 1 inch TRANSDERMA RQ6H WHILE AWAKE PRN PRN Reason: Chest Pain Ondansetron HCl (Ondansetron Hcl 4 Mg/2 Ml Vial) 4 mg IVPUSH Q8H PRN PRN Reason: Nausea and Vomiting Sodium Chloride (0.9 % Sodium Chloride Flush 3 Ml Syringe) 3 ml IVFLUSH QSHIFT COUNT INCLUDES THE [facility] Last Admin: 09/09/25 08:29 Dose: 3 ml Documented By: BILL Sodium Zirconium Cyclosilicate (Sodium Zirconium Cyclosilicate 10 Gm Powd.Pack) 10 gm PO MOWEFR PRN PRN Reason: high potassium Vitamin D (Cholecalciferol (Vitamin D3) 25 Mcg Tablet) 25 mcg PO DAILY COUNT INCLUDES THE [facility] Last Admin: 09/09/25 08:29 Dose: 25 mcg Documented By: BILL Labs 09/03/25 05:15 09/08/25 06:07 Assessment and Plan (1) Acute exacerbation of congestive heart failure: Status: Acute (2) Atrial fibrillation: Status: Acute (3) CKD (chronic kidney disease) stage 5, GFR less than 15 ml/min: Status: Acute Plan 75/m with AFIB, chronic systolic heart failure, HLD, HTN, with medication noncompliance, was admitted to hospital for acute decompensated heart failure with pulmonary edema, acute hypoxic respiratory failure, acute on chronic kidney injury, hyperkalemia and encephalopathy. Patient required IV Lasix drip, started on hemodialysis on 09/04. Acute decompensated heart failure with volume overload, likely precipitated by medication noncompliance, and cardiorenal syndrome, now ESRD, improving -status post IV Lasix drip, we will continue with dialysis to decrease fluid overload. Sodium and fluid restriction CKD, with biopsy-proven chronic interstitial nephritis -patient initiated on renal replacement therapy on 09/04 -nephrology following -had dialysis today, subsequently had episode of vertigo, IV albumin initiated -will hold of on permacath placement, plans on doing it tomorrow. Hyperkalemia, likely secondary to ESRD monitor K, avoid nephrotoxic and potassium-sparing medications will be avoided. Continue with dialysis Atrial fibrillation now RVR Supratherapeutic INR, resolved, INR right now 2.2 -continue with metoprolol, we will initiate p.r.n. medications will start eliquis 2.5mg BID after permacath placement -follow up w/ cardiology in outpatient setting Hyperlipidemia, chronic -continue atorvastatin 80 mg q.d. will request PT/OT eval to assess for ambulatory dysfunction FEN: Fluid restriction, replete as needed, salt restriction DVT PPx: Not indicated at this time given plans for permacath tomorrow Quality Stroke Does the patient have a stroke diagnosis?: No VTE Prior VTE?: No VTE Risk Level:: Medical - moderate - high VTE Device Contraindication: Treatment Not Indicated VTE Drug Contraindication: N/A - Med Ordered
[2025-09-10] VITALS (11 sets, daily range): BP systolic 111–122; BP diastolic 64–90; PULSE 110–136; RESP 14–32; TEMP 36.1–37; O2SAT 93–99
[2025-09-10] MEDS: Metoprolol Succinate ER 50 MG TAB.ER.24H 150 MG PO (08:47)
[2025-09-10] MEDS: 0.9 % Sodium Chloride Flush 3 ML SYRINGE IVFLUSH (08:50)
[2025-09-10 09:32] LABS: INTERNATIONAL NORM RATIO 1.5 (0.9-1.1); Prothrombin Time 17.2 SEC (10.9-12.4)
--- NOTE | 2025-09-10 12:45 | MHC.CM.PN ---
Addendum entered by Kia Brooke 09/10/25 16:19: IR REPORT FAXED TO [facility] CLINICAL DIRECTOR MYRTLE. THIS CM MET WITH PATIENT AND HIS TWO HCP'S SON AND DAUGHTER PRESENT AT BEDSIDE TO DISCUSS DISCHARGE PLANS. THEY ARE IN AGREEMENT WITH THE PLAN. Addendum entered by Kia Brooke 09/10/25 13:39: THIS CM CONTACTED [facility] CLINICAL DIRECTOR MY[facility] ABOUT CHANGE OF DISCHARGE DATE. PER MYRTLE, THEY CANNOT START A NEW ADMISSION OVER THE WEEKEND, SO HIS NEXT START DATE WOULD BE SUNDAY 09/16. WILL REQUEST FOR [facility] TO INITIATE INSURANCE AUTH ON SATURDAY 09/15. Original Note: THIS CM MET WITH PATIENT WITH A [employer] TO DISCUSS STR. ONLY STR BED OFFER IS FROM [facility] IN [place]. PATIENT STATED LONG HIS SON IS OK WITH HIM GOING, HE WILL GO. THIS CM PLACED A CALL TO PATIENTS SON/HCP JULIAN, HE STATES TO ACCEPT THE BED OFFER AND WE CAN GO FOR AUTH. PLAN WILL BE FOR PATIENT TO DISCHARGE TO [facility] AFTER HD TOMORROW, PENDING INSURANCE AUTH.
--- NOTE | 2025-09-10 16:04 | HO.PM.IMPN ---
Subjective Subjective Date of Service: 09/10/25 Interval History: vertigo resolved after albumin yesterday now c/o feeling hot and cold no dyspnea This history was taken in Grenadian from the patient. Review of Systems Review of Systems: Yes all other systems are reviewed and are negative Physical Exam Vital Signs: Vital Signs: Last Vital Signs Temp 98.2 F 09/10/25 15:40 Pulse 116 H 09/10/25 15:40 Resp 18 09/10/25 15:40 BP 111/75 09/10/25 15:40 Pulse Ox 95 09/10/25 15:40 O2 Del Method Room Air 09/10/25 15:40 O2 Flow Rate 2 09/10/25 11:55 FiO2 24 09/03/25 12:10 BMI result Body Mass Index 31.1 Gen: in no acute distress HEENT: sclera anicteric, moist mucus membranes Neck: supple, R subclavian HD catheter Lungs: clear to auscultation bilaterally Heart: regular rate and rhythm, no murmurs Abd: soft, non-tender, non-distended Ext: no edema Skin: warm/well-perfused Neuro: alert and oriented x3, no focal findings Psych: appropriate affect Objective Data Active Medications Acetaminophen (Acetaminophen 325 Mg Tablet) 975 mg PO Q6H PRN PRN Reason: Pain, Mild 1-3,fever,headache Last Admin: 09/10/25 06:06 Dose: 975 mg Documented By: BRENNON Atorvastatin Calcium (Atorvastatin Calcium 80 Mg Tablet) 80 mg PO DAILY [facility] Last Admin: 09/10/25 08:47 Dose: 80 mg Documented By: DORIS Calcium Carbonate (Calcium Carbonate 750 Mg Tab.Chew) 750 mg PO Q4H PRN PRN Reason: Heartburn Last Admin: 09/08/25 17:55 Dose: 750 mg Documented By: KAYLA Fluticasone Propionate (Fluticasone Propionate Nasal 16 Gm [place]) 1 spray NOSTRIL-B DAILY [facility] Last Admin: 09/10/25 08:47 Dose: 1 spray Documented By: DORIS Magnesium Hydroxide (Milk Of Magnesia 30 Ml Oral.Susp) 30 ml PO DAILY PRN PRN Reason: Constipation Melatonin (Melatonin 3 Mg Tablet) 6 mg PO BEDTIME PRN PRN Reason: Insomnia Last Admin: 09/06/25 21:54 Dose: 6 mg Documented By: MARIO Comments: per pt request Metoprolol Succinate (Metoprolol Succinate Er 50 Mg Tab.Er.24h) 150 mg PO DAILY [facility]; Protocol Last Admin: 09/10/25 08:47 Dose: 150 mg Documented By: DORIS Metoprolol Tartrate (Metoprolol Tartrate 5 Mg/5 Ml Vial) 5 mg IVPUSH Q6H PRN; Protocol PRN Reason: Heart Rate >100 Last Admin: 09/09/25 22:47 Dose: 5 mg Documented By: BRENNON Comments: Hr 136 BP 120/78 Nitroglycerin (Nitroglycerin 2 % Oint 1 Gm Packet) 1 inch TRANSDERMA RQ6H WHILE AWAKE PRN PRN Reason: Chest Pain Ondansetron HCl (Ondansetron Hcl 4 Mg/2 Ml Vial) 4 mg IVPUSH Q8H PRN PRN Reason: Nausea and Vomiting Sodium Chloride (0.9 % Sodium Chloride Flush 3 Ml Syringe) 3 ml IVFLUSH QSHIFT [facility] Last Admin: 09/10/25 08:50 Dose: 3 ml Documented By: DORIS Sodium Zirconium Cyclosilicate (Sodium Zirconium Cyclosilicate 10 Gm Powd.Pack) 10 gm PO MOWEFR PRN PRN Reason: high potassium Vitamin D (Cholecalciferol (Vitamin D3) 25 Mcg Tablet) 25 mcg PO DAILY [facility] Last Admin: 09/10/25 08:47 Dose: 25 mcg Documented By: DORIS Labs 09/03/25 05:15 09/08/25 06:07 Labs: Laboratory Results - last 24 hr 09/10/25 09:04 PT 17.2 H D INR 1.5 H Assessment and Plan (1) Acute exacerbation of congestive heart failure: Status: Acute (2) Atrial fibrillation: Status: Acute (3) CKD (chronic kidney disease) stage 5, GFR less than 15 ml/min: Status: Acute Plan d8, 75yo M with AF, HFrEF, HLD, CKD, HTN presenting with dyspnea and admitted for ADHF with pulmonary edema, hypoxia, and progression of CKD to ESRD requiring dialysis started on 09/04. ESRD: convert to tunnel catheter today, HD TuThSa, outpt placement; biopsy-proven chronic interstitial nephritis; Nephrology following hyperK: resolved p HD acute/chronic HFrEF/ADHF with volume overload: likely precipiated by medication noncompliance, complicated by cardiorenal syndrome, s/p IV furosemide drip, now volume managed by HD; TTE 09/05: Normal left ventricular cavity size. There is mildly increased left ventricular wall thickness. The left ventricular systolic function is mild to moderately decreased. The visually estimated ejection fraction is between 35-40%. - Normal right ventricular cavity size and systolic function. - The left atrium is moderately dilated. - The right atrium is severely dilated. - There is moderate mitral valve regurgitation. - There is mild to moderate tricuspid valve regurgitation. AF with RVR: will change warfarin to apixaban after Permacath placement; continue metoprolol succinate HLD: statin VTE ppx: apixaban dispo: STR per PT; placement pending In my clinical judgment, the patient requires continued inpatient hospitalization for the following reasons: Permacath, placement Total time managing care of this patient today: 40 minutes. Quality Stroke Does the patient have a stroke diagnosis?: No VTE Prior VTE?: No VTE Risk Level:: Medical - moderate - high VTE Device Contraindication: Treatment Not Indicated VTE Drug Contraindication: N/A - Med Ordered
[2025-09-11 03:17] VITALS: BP 111/58; PULSE 83; RESP 16; TEMP 36.6; O2SAT 98
[2025-09-11 07:11] VITALS: BP 115/76; PULSE 108; RESP 18; TEMP 36.3; O2SAT 96
--- NOTE | 2025-09-11 09:45 | HO.PM.IMPN ---
Subjective Subjective Date of Service: 09/11/25 Interval History: HR fast up to 120s this AM, c/o palpitations This history was taken in Indonesian from the patient. Review of Systems Review of Systems: Yes all other systems are reviewed and are negative Physical Exam Vital Signs: Vital Signs: Last Vital Signs Temp 97.3 F 09/11/25 07:11 Pulse 108 H 09/11/25 07:11 Resp 18 09/11/25 07:11 BP 115/76 09/11/25 07:11 Pulse Ox 96 09/11/25 07:11 O2 Del Method Room Air 09/11/25 07:11 O2 Flow Rate 2 09/10/25 11:55 FiO2 24 09/03/25 12:10 BMI result Body Mass Index 31.1 Gen: in no acute distress HEENT: sclera anicteric, moist mucus membranes Neck: supple, R subclavian HD catheter Lungs: clear to auscultation bilaterally Heart: regular rate and rhythm, no murmurs Abd: soft, non-tender, non-distended Ext: no edema Skin: warm/well-perfused Neuro: alert and oriented x3, no focal findings Psych: appropriate affect Objective Data Active Medications Acetaminophen (Acetaminophen 325 Mg Tablet) 975 mg PO Q6H PRN PRN Reason: Pain, Mild 1-3,fever,headache Last Admin: 09/10/25 22:14 Dose: 975 mg Documented By: BRENNON Apixaban (Apixaban 2.5 Mg Tablet) 2.5 mg PO BID [facility] Atorvastatin Calcium (Atorvastatin Calcium 80 Mg Tablet) 80 mg PO DAILY [facility] Last Admin: 09/10/25 08:47 Dose: 80 mg Documented By: DORIS Calcium Carbonate (Calcium Carbonate 750 Mg Tab.Chew) 750 mg PO Q4H PRN PRN Reason: Heartburn Last Admin: 09/08/25 17:55 Dose: 750 mg Documented By: KAYLA Fluticasone Propionate (Fluticasone Propionate Nasal 16 Gm [place]) 1 spray NOSTRIL-B DAILY [facility] Last Admin: 09/10/25 08:47 Dose: 1 spray Documented By: DORIS Magnesium Hydroxide (Milk Of Magnesia 30 Ml Oral.Susp) 30 ml PO DAILY PRN PRN Reason: Constipation Melatonin (Melatonin 3 Mg Tablet) 6 mg PO BEDTIME PRN PRN Reason: Insomnia Last Admin: 09/10/25 22:14 Dose: 6 mg Documented By: BRENNON Metoprolol Succinate (Metoprolol Succinate Er 100 Mg Tab.Er.24h) 200 mg PO DAILY [facility]; Protocol Metoprolol Tartrate (Metoprolol Tartrate 5 Mg/5 Ml Vial) 5 mg IVPUSH Q6H PRN; Protocol PRN Reason: Heart Rate >100 Last Admin: 09/09/25 22:47 Dose: 5 mg Documented By: BRENNON Comments: Hr 136 BP 120/78 Nitroglycerin (Nitroglycerin 2 % Oint 1 Gm Packet) 1 inch TRANSDERMA RQ6H WHILE AWAKE PRN PRN Reason: Chest Pain Ondansetron HCl (Ondansetron Hcl 4 Mg/2 Ml Vial) 4 mg IVPUSH Q8H PRN PRN Reason: Nausea and Vomiting Sodium Chloride (0.9 % Sodium Chloride Flush 3 Ml Syringe) 3 ml IVFLUSH QSHIFT [facility] Last Admin: 09/11/25 00:26 Dose: Not Given Documented By: BRENNON Non-Admin Reason: Previously Administered Sodium Zirconium Cyclosilicate (Sodium Zirconium Cyclosilicate 10 Gm Powd.Pack) 10 gm PO MOWEFR PRN PRN Reason: high potassium Vitamin D (Cholecalciferol (Vitamin D3) 25 Mcg Tablet) 25 mcg PO DAILY [facility] Last Admin: 09/10/25 08:47 Dose: 25 mcg Documented By: DORIS Labs 09/03/25 05:15 09/08/25 06:07 Assessment and Plan (1) Acute exacerbation of congestive heart failure: Status: Acute (2) Atrial fibrillation: Status: Acute (3) CKD (chronic kidney disease) stage 5, GFR less than 15 ml/min: Status: Acute Plan d9, 75yo M with AF, HFrEF, HLD, CKD, HTN presenting with dyspnea and admitted for ADHF with pulmonary edema, hypoxia, and progression of CKD to ESRD requiring dialysis started on 09/04. ESRD: converted to tunneled HD catheter 09/10, HD TuThSa, outpt placement; biopsy-proven chronic interstitial nephritis; Nephrology following AF with RVR: increase metoprolol succinate from 150 to 200 mg/d; changed warfarin to apixaban after Permacath placement hyperK: resolved p HD acute/chronic HFrEF/ADHF with volume overload: likely precipitated by medication noncompliance, complicated by cardiorenal syndrome, s/p IV furosemide drip, now volume managed by HD; TTE 09/05: Normal left ventricular cavity size. There is mildly increased left ventricular wall thickness. The left ventricular systolic function is mild to moderately decreased. The visually estimated ejection fraction is between 35-40%. - Normal right ventricular cavity size and systolic function. - The left atrium is moderately dilated. - The right atrium is severely dilated. - There is moderate mitral valve regurgitation. - There is mild to moderate tricuspid valve regurgitation. HLD: statin VTE ppx: apixaban dispo: STR per PT; placement pending In my clinical judgment, the patient requires continued inpatient hospitalization for the following reasons: rate control, placement Total time managing care of this patient today: 40 minutes. Quality Stroke Does the patient have a stroke diagnosis?: No VTE Prior VTE?: No VTE Risk Level:: Medical - moderate - high VTE Device Contraindication: Treatment Not Indicated VTE Drug Contraindication: N/A - Med Ordered
--- NOTE | 2025-09-11 10:21 | W.PM.DNNEP ---
Subjective Subjective Date of Service: 09/11/25 This patient was seen during dialysis. He is tolerating the dialysis well so far No new issues Physical Exam Vital Signs: Vital Signs: Last Vital Signs Temp 97.3 F 09/11/25 07:11 Pulse 108 H 09/11/25 07:11 Resp 18 09/11/25 07:11 BP 115/76 09/11/25 07:11 Pulse Ox 96 09/11/25 07:11 O2 Del Method Room Air 09/11/25 07:11 O2 Flow Rate 2 09/10/25 11:55 FiO2 24 09/03/25 12:10 BMI result Body Mass Index 31.1 General: Elderly male in no acute distress, chronically ill appearing and tired appearing Nutritional Appearance: well nourished and overweight Eyes: appearance normal, both eyes and all related structures; Alignment and Position: alignment normal and position normal Neck: No lymphadenopathy, no thyromegaly Resp: bilateral air entry equal, occasional added sounds present mostly in the lung base Cardio: Regular rate, regular rhythm; Heart sounds: S1 normal heart sound present and S2 normal heart sound present GI: soft, nontender, no guarding, no hepatosplenomegaly : bladder normal to inspection, bladder normal to palpation, no renal angle tenderness Skin: no rashes or lesions noted and elasticity normal Neuro: oriented to person, oriented to place, oriented to time and moves all extremities Assessment & Plan Assessment and plan (1) HTN (hypertension): Status: Acute (2) ESRD (end stage renal disease): Status: Acute (3) Anemia: Status: Acute Plan End-stage renal disease: Patient has chronic kidney disease stage 5 secondary to biopsy-proven chronic interstitial nephritis admitted with significant uremic symptoms including cough uremic encephalopathy, volume overload, lower extremity tremors, decreased appetite. He is initiated on renal replacement therapy received 5sessions of hemodialysis so far. He is planned for maintenance hemodialysis , he has an outpatient HD spot in [facility] in [facility] in [place] on Mon/Mon/Sat at 6.30 AM. Had episode of syncope post dialysis last time, so we will decrease the duration of dialysis to 3 hours and we will decrease the UF to 1 L today. Can be discharged home from nephrology point of view. 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 continue metoprolol as he has history of atrial fibrillation, but we will decrease the dose to 100 mg daily given his low blood pressures prior to and during dialysis Time Spent With Patient Time: Total time managing care of this patient today ____ minutes. Procedures Date of Service Date of Service: 09/11/25
[2025-09-11 13:25] VITALS: BP 132/90; PULSE 94; RESP 18; TEMP 36.7; O2SAT 97
[2025-09-11] MEDS: 0.9 % Sodium Chloride Flush 3 ML SYRINGE IVFLUSH ×2 (13:47→22:07)
[2025-09-11] MEDS: Metoprolol Succinate ER 100 MG TAB.ER.24H PO (13:47)
[2025-09-11 15:10] VITALS: BP 132/63; PULSE 72; RESP 18; TEMP 36.8; O2SAT 96
[2025-09-11 19:16] VITALS: BP 98/60; PULSE 85; RESP 16; TEMP 36.7; O2SAT 95
[2025-09-12] VITALS (7 sets, daily range): BP systolic 100–128; BP diastolic 64–84; PULSE 98–125; RESP 16–18; TEMP 36.4–37.1; O2SAT 96–99
[2025-09-12] MEDS: Metoprolol Succinate ER 100 MG TAB.ER.24H PO (09:37)
[2025-09-12] MEDS: 0.9 % Sodium Chloride Flush 3 ML SYRINGE IVFLUSH (09:40)
--- NOTE | 2025-09-12 12:06 | HO.PM.IMPN ---
Subjective Subjective Date of Service: 09/12/25 Interval History: feels well today, denies dyspnea or palpitations though HR was as high as 120s at times; currently 90s tolerated HD much better yesterday This history was taken in Arabic from the patient. Review of Systems Review of Systems: Yes all other systems are reviewed and are negative Physical Exam Vital Signs: Vital Signs: Last Vital Signs Temp 97.6 F 09/12/25 07:20 Pulse 98 09/12/25 10:39 Resp 18 09/12/25 07:20 BP 113/64 09/12/25 10:39 Pulse Ox 96 09/12/25 10:39 O2 Del Method Room Air 09/12/25 07:20 O2 Flow Rate 2 09/10/25 11:55 FiO2 24 09/03/25 12:10 BMI result Body Mass Index 31.1 Gen: in no acute distress HEENT: sclera anicteric, moist mucus membranes Neck: supple, R subclavian tunneled HD catheter Lungs: clear to auscultation bilaterally Heart: regular rate and rhythm, no murmurs Abd: soft, non-tender, non-distended Ext: no edema Skin: warm/well-perfused Neuro: alert and oriented x3, no focal findings Psych: appropriate affect Objective Data Active Medications Acetaminophen (Acetaminophen 325 Mg Tablet) 975 mg PO Q6H PRN PRN Reason: Pain, Mild 1-3,fever,headache Last Admin: 09/10/25 22:14 Dose: 975 mg Documented By: BRENNON Apixaban (Apixaban 2.5 Mg Tablet) 2.5 mg PO BID [facility] Last Admin: 09/12/25 09:37 Dose: 2.5 mg Documented By: SHA Atorvastatin Calcium (Atorvastatin Calcium 80 Mg Tablet) 80 mg PO DAILY [facility] Last Admin: 09/12/25 09:37 Dose: 80 mg Documented By: SHA Calcitriol (Calcitriol 0.25 Mcg Capsule) 0.25 mcg PO DAILY [facility] Last Admin: 09/12/25 09:37 Dose: 0.25 mcg Documented By: SHA Calcium Carbonate (Calcium Carbonate 750 Mg Tab.Chew) 750 mg PO Q4H PRN PRN Reason: Heartburn Last Admin: 09/08/25 17:55 Dose: 750 mg Documented By: APRILDONJason Fluticasone Propionate (Fluticasone Propionate Nasal 16 Gm [place]) 1 spray NOSTRIL-B DAILY [facility] Last Admin: 09/11/25 13:48 Dose: 1 spray Documented By: SHA Magnesium Hydroxide (Milk Of Magnesia 30 Ml Oral.Susp) 30 ml PO DAILY PRN PRN Reason: Constipation Melatonin (Melatonin 3 Mg Tablet) 6 mg PO BEDTIME PRN PRN Reason: Insomnia Last Admin: 09/10/25 22:14 Dose: 6 mg Documented By: BRENNON Metoprolol Succinate (Metoprolol Succinate Er 100 Mg Tab.Er.24h) 100 mg PO DAILY [facility]; Protocol Last Admin: 09/12/25 09:37 Dose: 100 mg Documented By: SHA Metoprolol Tartrate (Metoprolol Tartrate 5 Mg/5 Ml Vial) 5 mg IVPUSH Q6H PRN; Protocol PRN Reason: Heart Rate >100 Last Admin: 09/11/25 14:35 Dose: 5 mg Documented By: SHA Nitroglycerin (Nitroglycerin 2 % Oint 1 Gm Packet) 1 inch TRANSDERMA RQ6H WHILE AWAKE PRN PRN Reason: Chest Pain Ondansetron HCl (Ondansetron Hcl 4 Mg/2 Ml Vial) 4 mg IVPUSH Q8H PRN PRN Reason: Nausea and Vomiting Sodium Chloride (0.9 % Sodium Chloride Flush 3 Ml Syringe) 3 ml IVFLUSH QSHIFT [facility] Last Admin: 09/12/25 09:40 Dose: 3 ml Documented By: SHA Sodium Chloride (0.9 % Sodium Chloride Flush 10 Ml Syringe) 5 ml IVFLUSH ONCE PRN PRN Reason: Infusion Center Sodium Zirconium Cyclosilicate (Sodium Zirconium Cyclosilicate 10 Gm Powd.Pack) 10 gm PO MOWEFR PRN PRN Reason: high potassium Labs 09/03/25 05:15 09/08/25 06:07 Assessment and Plan (1) Acute exacerbation of congestive heart failure: Status: Acute (2) Atrial fibrillation: Status: Acute (3) CKD (chronic kidney disease) stage 5, GFR less than 15 ml/min: Status: Acute Plan d10, 75yo M with AF, HFrEF, HLD, CKD, HTN presenting with dyspnea and admitted for ADHF with pulmonary edema, hypoxia, and progression of CKD to ESRD requiring dialysis started on 09/04. ESRD: converted to tunneled HD catheter 09/10, HD TuThSa, outpt placement; biopsy-proven chronic interstitial nephritis; Nephrology following AF with RVR: metoprolol succinate; apixaban hyperK: resolved p HD acute/chronic HFrEF/ADHF with volume overload: likely precipitated by medication noncompliance, complicated by cardiorenal syndrome, s/p IV furosemide drip, now volume managed by HD; TTE 09/05: Normal left ventricular cavity size. There is mildly increased left ventricular wall thickness. The left ventricular systolic function is mild to moderately decreased. The visually estimated ejection fraction is between 35-40%. - Normal right ventricular cavity size and systolic function. - The left atrium is moderately dilated. - The right atrium is severely dilated. - There is moderate mitral valve regurgitation. - There is mild to moderate tricuspid valve regurgitation. HLD: statin VTE ppx: apixaban dispo: STR per PT; placement pending In my clinical judgment, the patient requires continued inpatient hospitalization for the following reasons: rate control, placement Total time managing care of this patient today: 35 minutes. Quality Stroke Does the patient have a stroke diagnosis?: No VTE Prior VTE?: No VTE Risk Level:: Medical - moderate - high VTE Device Contraindication: Treatment Not Indicated VTE Drug Contraindication: N/A - Med Ordered
--- NOTE | 2025-09-12 16:05 | MHC.CM.PN ---
EMR REVIEWED AND PER MD ROUNDS, PATIENT WILL BE DISCHARGING TO STR AT [facility] PENDING INSURANCE AUTH, AND NEW OUTPATIENT HD AT [facility] START DATE OF 09/16.
[2025-09-13] VITALS: BP 104/57; PULSE 104; RESP 16; TEMP 36.9; O2SAT 100
[2025-09-13 07:41] VITALS: BP 133/73; PULSE 108; RESP 18; TEMP 36.7; O2SAT 97
[2025-09-13] MEDS: Metoprolol Succinate ER 100 MG TAB.ER.24H PO (08:07)
[2025-09-13] MEDS: 0.9 % Sodium Chloride Flush 3 ML SYRINGE IVFLUSH ×2 (08:08→16:05)
--- NOTE | 2025-09-13 11:23 | HO.PM.IMPN ---
Subjective Subjective Date of Service: 09/13/25 Interval History: This history was taken in Icelandic from the patient. No dizziness. Feels much better. No palpitations despite HR at times in the 120s Review of Systems Review of Systems: Yes all other systems are reviewed and are negative Physical Exam Vital Signs: Vital Signs: Last Vital Signs Temp 98.0 F 09/13/25 07:41 Pulse 108 H 09/13/25 07:41 Resp 18 09/13/25 07:41 BP 133/73 09/13/25 07:41 Pulse Ox 97 09/13/25 07:41 O2 Del Method Room Air 09/13/25 07:41 O2 Flow Rate 2 09/10/25 11:55 FiO2 24 09/03/25 12:10 BMI result Body Mass Index 31.1 Gen: in no acute distress HEENT: sclera anicteric, moist mucus membranes Neck: supple, R subclavian tunneled HD catheter Lungs: clear to auscultation bilaterally Heart: irregular, fast, no murmurs Abd: soft, non-tender, non-distended Ext: no edema Skin: warm/well-perfused Neuro: alert and oriented x3, no focal findings Psych: appropriate affect Objective Data Active Medications Acetaminophen (Acetaminophen 325 Mg Tablet) 975 mg PO Q6H PRN PRN Reason: Pain, Mild 1-3,fever,headache Last Admin: 09/10/25 22:14 Dose: 975 mg Documented By: BRENNON Apixaban (Apixaban 2.5 Mg Tablet) 2.5 mg PO BID [facility] Last Admin: 09/13/25 08:07 Dose: 2.5 mg Documented By: KAYLA Atorvastatin Calcium (Atorvastatin Calcium 80 Mg Tablet) 80 mg PO DAILY [facility] Last Admin: 09/13/25 08:07 Dose: 80 mg Documented By: KAYLA Calcitriol (Calcitriol 0.25 Mcg Capsule) 0.25 mcg PO DAILY [facility] Last Admin: 09/13/25 08:07 Dose: 0.25 mcg Documented By: KAYLA Calcium Carbonate (Calcium Carbonate 750 Mg Tab.Chew) 750 mg PO Q4H PRN PRN Reason: Heartburn Last Admin: 09/08/25 17:55 Dose: 750 mg Documented By: KAYLA Fluticasone Propionate (Fluticasone Propionate Nasal 16 Gm [place]) 1 spray NOSTRIL-B DAILY [facility] Last Admin: 09/13/25 08:13 Dose: 1 spray Documented By: KAYLA Magnesium Hydroxide (Milk Of Magnesia 30 Ml Oral.Susp) 30 ml PO DAILY PRN PRN Reason: Constipation Melatonin (Melatonin 3 Mg Tablet) 6 mg PO BEDTIME PRN PRN Reason: Insomnia Last Admin: 09/10/25 22:14 Dose: 6 mg Documented By: BRENNON Metoprolol Succinate (Metoprolol Succinate Er 100 Mg Tab.Er.24h) 100 mg PO DAILY [facility]; Protocol Last Admin: 09/13/25 08:07 Dose: 100 mg Documented By: KAYLA Metoprolol Tartrate (Metoprolol Tartrate 5 Mg/5 Ml Vial) 5 mg IVPUSH Q6H PRN; Protocol PRN Reason: Heart Rate >100 Last Admin: 09/11/25 14:35 Dose: 5 mg Documented By: SHA Nitroglycerin (Nitroglycerin 2 % Oint 1 Gm Packet) 1 inch TRANSDERMA RQ6H WHILE AWAKE PRN PRN Reason: Chest Pain Ondansetron HCl (Ondansetron Hcl 4 Mg/2 Ml Vial) 4 mg IVPUSH Q8H PRN PRN Reason: Nausea and Vomiting Sodium Chloride (0.9 % Sodium Chloride Flush 3 Ml Syringe) 3 ml IVFLUSH QSHIFT [facility] Last Admin: 09/13/25 08:08 Dose: 3 ml Documented By: KAYLA Sodium Chloride (0.9 % Sodium Chloride Flush 10 Ml Syringe) 5 ml IVFLUSH ONCE PRN PRN Reason: Infusion Center Sodium Zirconium Cyclosilicate (Sodium Zirconium Cyclosilicate 10 Gm Powd.Pack) 10 gm PO MOWEFR PRN PRN Reason: high potassium Labs 09/03/25 05:15 09/08/25 06:07 Assessment and Plan (1) Acute exacerbation of congestive heart failure: Status: Acute (2) Atrial fibrillation: Status: Acute (3) CKD (chronic kidney disease) stage 5, GFR less than 15 ml/min: Status: Acute Plan d11, 75yo M with AF, HFrEF, HLD, CKD, HTN presenting with dyspnea and admitted for ADHF with pulmonary edema, hypoxia, and progression of CKD to ESRD requiring dialysis started on 09/04. ESRD: converted to tunneled HD catheter 09/10, HD TuThSa, outpt placement; biopsy-proven chronic interstitial nephritis; Nephrology following AF with RVR: metoprolol succinate for rate control, currently on 100 mg/d and if BP tolerates, increase to 150 mg/d for better rate control if needed; continue apixaban hyperK: resolved p HD acute/chronic HFrEF/ADHF with volume overload: likely precipitated by medication noncompliance, complicated by cardiorenal syndrome, s/p IV furosemide drip, now volume managed by HD TuThSa; TTE 09/05: Normal left ventricular cavity size. There is mildly increased left ventricular wall thickness. The left ventricular systolic function is mild to moderately decreased. The visually estimated ejection fraction is between 35-40%. - Normal right ventricular cavity size and systolic function. - The left atrium is moderately dilated. - The right atrium is severely dilated. - There is moderate mitral valve regurgitation. - There is mild to moderate tricuspid valve regurgitation. HLD: statin VTE ppx: apixaban dispo: STR per PT; placement pending In my clinical judgment, the patient requires continued inpatient hospitalization for the following reasons: rate control, placement Total time managing care of this patient today: 35 minutes. Quality Stroke Does the patient have a stroke diagnosis?: No VTE Prior VTE?: No VTE Risk Level:: Medical - moderate - high VTE Device Contraindication: Treatment Not Indicated VTE Drug Contraindication: N/A - Med Ordered
[2025-09-13 12:00] VITALS: BP 119/63; PULSE 105; RESP 18; TEMP 36.3; O2SAT 98
--- NOTE | 2025-09-13 13:24 | W.PM.DNNEP ---
Subjective Subjective Date of Service: 09/13/25 This patient was seen during dialysis. Interval history: No new events, tolerated hemodialysis well this morning. No issues, comfortable Physical Exam Vital Signs: Vital Signs: Last Vital Signs Temp 97.3 F 09/13/25 12:00 Pulse 105 H 09/13/25 12:00 Resp 18 09/13/25 12:00 BP 119/63 09/13/25 12:00 Pulse Ox 98 09/13/25 12:00 O2 Del Method Room Air 09/13/25 12:00 O2 Flow Rate 2 09/10/25 11:55 FiO2 24 09/03/25 12:10 BMI result Body Mass Index 31.1 General: not in any acute distress, ill appearing Nutritional Appearance: well nourished and overweight Eyes: appearance normal, both eyes and all related structures; Alignment and Position: alignment normal and position normal Neck: No lymphadenopathy, no thyromegaly Resp: bilateral air entry equal, no added sounds present Cardio: Regular rate, regular rhythm; Heart sounds: S1 normal heart sound present and S2 normal heart sound present GI: soft, nontender, no guarding, no hepatosplenomegaly : bladder normal to inspection, bladder normal to palpation, no renal angle tenderness Skin: no rashes or lesions noted and elasticity normal Neuro: alert, oriented x 3, moves all extremities Assessment & Plan Assessment and plan (1) HTN (hypertension): Status: Acute (2) ESRD (end stage renal disease): Status: Acute (3) Acute on chronic kidney failure: Status: Acute Plan End-stage renal disease: Patient has chronic kidney disease stage 5 secondary to biopsy-proven chronic interstitial nephritis admitted with significant uremic symptoms including cough uremic encephalopathy, volume overload, lower extremity tremors, decreased appetite. He is initiated on renal replacement therapy and is planned for maintenance hemodialysis , he has an outpatient HD spot in [facility] in [facility] in [place] on Mon/Mon/Sat at 6.30 AM. Can be discharged home from nephrology point of view. 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 Dose of metoprolol decreased to 100 mg given hypotension during dialysis. Withhold metoprolol until the dialysis is over on TTS, can give him after dialysis. He has history of atrial fibrillation and RVR Time Spent With Patient Time: Total time managing care of this patient today ____ minutes. Procedures Date of Service Date of Service: 09/13/25
[2025-09-13 14:56] VITALS: BP 108/64; PULSE 80; RESP 18; TEMP 36.4; O2SAT 97
[2025-09-13 20:00] VITALS: BP 99/60; PULSE 94; RESP 18; TEMP 36.4; O2SAT 97
[2025-09-13 23:36] VITALS: BP 136/75; PULSE 111; RESP 16; TEMP 36.9; O2SAT 95
[2025-09-14 03:21] VITALS: BP 123/81; PULSE 114; RESP 16; TEMP 36.9; O2SAT 95
[2025-09-14 08:00] VITALS: BP 125/76; PULSE 66; RESP 18; TEMP 36.8; O2SAT 95
[2025-09-14] MEDS: Metoprolol Succinate ER 100 MG TAB.ER.24H PO (08:00)
[2025-09-14] MEDS: 0.9 % Sodium Chloride Flush 3 ML SYRINGE IVFLUSH ×2 (08:01→16:28)
[2025-09-14 12:00] VITALS: BP 120/57; PULSE 106; RESP 18; TEMP 36.8; O2SAT 97
--- NOTE | 2025-09-14 15:20 | HO.PM.IMPN ---
Subjective Subjective Date of Service: 09/14/25 Interval History: No acute issues overnight Review of Systems Denies chest pain Denies shortness of breath Denies nausea vomiting diarrhea next fever chills Physical Exam Vital Signs: Vital Signs: Last Vital Signs Temp 98.3 F 09/14/25 12:00 Pulse 106 H 09/14/25 12:00 Resp 18 09/14/25 12:00 BP 120/57 L 09/14/25 12:00 Pulse Ox 97 09/14/25 12:00 O2 Del Method Room Air 09/14/25 12:00 O2 Flow Rate 2 09/10/25 11:55 FiO2 24 09/03/25 12:10 BMI result Body Mass Index 31.1 Const: Other: No acute distress Resp: Other: Clear to auscultation bilaterally no rales rhonchi or wheezes Cardio: Other: No S4; positive S1-S2; no S3 murmurs rubs or gallops GI: Other: Soft nontender nondistended normoactive bowel sounds Extrem: Other: No edema bilaterally Objective Data Active Medications Acetaminophen (Acetaminophen 325 Mg Tablet) 975 mg PO Q6H PRN PRN Reason: Pain, Mild 1-3,fever,headache Last Admin: 09/10/25 22:14 Dose: 975 mg Documented By: BRENNON Apixaban (Apixaban 2.5 Mg Tablet) 2.5 mg PO BID [facility] Last Admin: 09/14/25 08:00 Dose: 2.5 mg Documented By: KAYLA Atorvastatin Calcium (Atorvastatin Calcium 80 Mg Tablet) 80 mg PO DAILY [facility] Last Admin: 09/14/25 08:01 Dose: 80 mg Documented By: KAYLA Calcitriol (Calcitriol 0.25 Mcg Capsule) 0.25 mcg PO DAILY [facility] Last Admin: 09/14/25 08:01 Dose: 0.25 mcg Documented By: KAYLA Calcium Carbonate (Calcium Carbonate 750 Mg Tab.Chew) 750 mg PO Q4H PRN PRN Reason: Heartburn Last Admin: 09/08/25 17:55 Dose: 750 mg Documented By: KAYLA Fluticasone Propionate (Fluticasone Propionate Nasal 16 Gm [place]) 1 spray NOSTRIL-B DAILY [facility] Last Admin: 09/14/25 08:03 Dose: 1 spray Documented By: KAYLA Magnesium Hydroxide (Milk Of Magnesia 30 Ml Oral.Susp) 30 ml PO DAILY PRN PRN Reason: Constipation Melatonin (Melatonin 3 Mg Tablet) 6 mg PO BEDTIME PRN PRN Reason: Insomnia Last Admin: 09/10/25 22:14 Dose: 6 mg Documented By: BRENNON Metoprolol Succinate (Metoprolol Succinate Er 100 Mg Tab.Er.24h) 100 mg PO DAILY [facility]; Protocol Last Admin: 09/14/25 08:00 Dose: 100 mg Documented By: KAYLA Metoprolol Tartrate (Metoprolol Tartrate 5 Mg/5 Ml Vial) 5 mg IVPUSH Q6H PRN; Protocol PRN Reason: Heart Rate >100 Last Admin: 09/11/25 14:35 Dose: 5 mg Documented By: SHA Nitroglycerin (Nitroglycerin 2 % Oint 1 Gm Packet) 1 inch TRANSDERMA RQ6H WHILE AWAKE PRN PRN Reason: Chest Pain Ondansetron HCl (Ondansetron Hcl 4 Mg/2 Ml Vial) 4 mg IVPUSH Q8H PRN PRN Reason: Nausea and Vomiting Sodium Chloride (0.9 % Sodium Chloride Flush 3 Ml Syringe) 3 ml IVFLUSH QSHIFT [facility] Last Admin: 09/14/25 08:01 Dose: 3 ml Documented By: KAYLA Sodium Chloride (0.9 % Sodium Chloride Flush 10 Ml Syringe) 5 ml IVFLUSH ONCE PRN PRN Reason: Infusion Center Sodium Zirconium Cyclosilicate (Sodium Zirconium Cyclosilicate 10 Gm Powd.Pack) 10 gm PO MOWEFR PRN PRN Reason: high potassium Labs 09/03/25 05:15 09/08/25 06:07 Assessment and Plan (1) ESRD (end stage renal disease): Status: Acute (2) Atrial fibrillation: Status: Acute (3) HTN (hypertension): Status: Acute Plan 75yo M with AF, HFrEF, HLD, CKD, HTN presenting with dyspnea and admitted for ADHF with pulmonary edema, hypoxia, and progression of CKD to ESRD requiring dialysis started on 09/04. 1.ESRD -converted to tunneled HD catheter 09/10, HD TuThSa, 2.AF with RVR -acceptable rate control on current therapies -adjust as indicated -Eliquis 3.Acute/chronic HFrEF/ADHF with volume overload -EF 35-40% -no longer volume overloaded with dialysis -follow renals/divalent VTE ppx: apixaban dispo: STR per PT; placement pending In my clinical judgment, the patient requires continued inpatient hospitalization for the following reasons: rate control, placement Quality Stroke Does the patient have a stroke diagnosis?: No VTE Prior VTE?: No VTE Risk Level:: Medical - moderate - high VTE Device Contraindication: Treatment Not Indicated VTE Drug Contraindication: N/A - Med Ordered
[2025-09-14 15:47] VITALS: BP 111/67; PULSE 108; RESP 18; TEMP 36.7; O2SAT 97
[2025-09-14 19:43] VITALS: BP 113/71; PULSE 73; RESP 18; TEMP 36.6; O2SAT 97
[2025-09-14 23:22] VITALS: BP 137/82; PULSE 103; RESP 18; TEMP 36.8; O2SAT 96
[2025-09-15 03:15] VITALS: BP 130/77; PULSE 93; RESP 18; TEMP 37.1; O2SAT 97
[2025-09-15 06:53] LABS: MANUAL DIFF FLAG NO
[2025-09-15 06:59] LABS: Hematocrit 32.5 % (42.0-52.0); Hemoglobin 9.9 g/dl (14.0-18.0); Imm Gran Abs Auto 0.07 X10*3/uL (0.00-0.03); Imm Gran Pct Auto 0.8 % (0.0-0.4); Lymphocytes Absolute Auto 0.8 X10*3/uL (1.2-4.9); Mean Corpuscular HGB Conc 30.5 g/dl (31.0-36.0); Mean Corpuscular Hemoglobin 25.9 pg (27.0-33.0); Mean Corpuscular Volume 85.1 fL (80.0-98.0); NRBC Abs Auto 0.000 X10*3/uL (0.0-0.012); NRBC Pct Auto 0.0 /100WBC (0.0-0.2); Platelet Count 220 X10*3/uL (160-400); Red Blood Count 3.82 X10*6/uL (4.60-5.80); White Blood Count 8.5 X10*3/uL (4.8-10.8)
[2025-09-15 07:14] VITALS: BP 118/78; PULSE 112; RESP 18; TEMP 36.9; O2SAT 97
[2025-09-15 07:31] LABS: Alanine Aminotransferase 16 U/L (0-40); Albumin Level 3.6 g/dL (3.5-5.0); Alkaline Phosphatase 69 U/L (39-117); Anion Gap 17 (12-20); Aspartate Amino Transferase 39 U/L (5-37); Blood Urea Nitrogen 58 mg/dL (9-16); Calcium 8.8 mg/dL (8.4-10.2); Carbon Dioxide 26 mmol/L (22-29); Chloride 100 mmol/L (96-108); Creatinine Clr Calc Pharmacy 11.1; Estimated Glomerular Filt Rate 9; Potassium 4.2 mmol/L (3.3-5.1); Sodium 139 mmol/L (135-145); Total Protein 6.6 g/dL (6.5-8.0)
[2025-09-15] MEDS: Metoprolol Succinate ER 100 MG TAB.ER.24H PO (08:10)
[2025-09-15] MEDS: 0.9 % Sodium Chloride Flush 3 ML SYRINGE IVFLUSH (08:13)
[2025-09-15 11:01] VITALS: BP 111/69; PULSE 108; RESP 18; TEMP 36.9; O2SAT 99
--- NOTE | 2025-09-15 13:49 | MHC.CM.PN ---
Addendum entered by Sheree Burnett 09/15/25 14:34: [facility] does not have PT available, referrals to other [facility]NA's Original Note: Pt has been medically cleared to go to [facility], family requested to speak with CM, and said that they would like to take pt. home. Provider informed and agreed to pt. DC home with VNA, referral into [facility], [facility] notified (they were going for auth). Family to will transport him home.
--- NOTE | 2025-09-15 14:06 | P.DS_ITS ---
DS: Providers Provider Date of Service: 09/15/25 Date of admission: 09/03/25 08:22 Date of discharge: 09/15/25 Primary care physician: Preet An PA-C Consults: 09/03/25 09:34 Consult to Cardiology Routine Consulting Provider: [facility] Reason for consultation: HF, afib with RVR Consult to Nephrology Routine Consulting Provider: [facility] Reason for consultation: GONZALO on CKD, cardiorenal syndrome Has provider been notified: No 09/03/25 10:27 Consult to Cardiology Routine Consulting Provider: [facility] Reason for consultation: Heart failure Has provider been notified: Yes DS: Diagnosis Discharge Diagnosis (1) ESRD (end stage renal disease): Status: Acute (2) Atrial fibrillation: Status: Acute (3) HTN (hypertension): Status: Acute DS: Summary Hospital Course Hospital Course: 75-year-old male with a history of atrial fibrillation on Coumadin, mixed hyperlipidemia (on Lipitor), stage 4 chronic kidney disease, hypertension, coronary artery disease, and congestive heart failure with an ejection fraction of 45?50%. He is known to be noncompliant with his medications. He recently presented to urgent care with abdominal pain and was diagnosed with constipation, for which he was prescribed Miralax. He is now experiencing dyspnea on exertion, bilateral lower extremity edema, and increasing shortness of breath. According to his son, he has also become increasingly confused. The son reports that the patient has not been taking his medications, including his diuretics. In the emergency department, workup revealed the following: * Chest X-ray: Pulmonary edema * Pro-BNP: 22,682.8 * Creatinine: 6.06 (baseline 4?5) * Potassium: 5.9 (treated with Lokelma)ED treatment: IV Lasix and lokelma Hospital Course Admitted to telemetry and aggressively diuresed with IV Lasix. Over the course of the next several days Lasix was less effective in the decision was made to start hemodialysis. Tolerated dialysis well with improvement in overall labs and clinical presentation. Ultimately a tunnel catheter was placed for ongoing dialysis. He was seen by Physical therapy and deemed a candidate for short-term rehab however at this point he is ambulating in the hallway with therapy and they are saying he does not need short-term rehab and family wishes to take him home. They will take him to dialysis [facility] Thursday and Monday [facility] dialysis. His Coumadin has been DC and switch to Eliquis for his atrial fibrillation for which his rate has been well control. At this point in time he is medically acceptable for discharge Time Attestation Discharge Coordination Time (in mins): 35 Quality: Safe Use of Opioids Does Pt have an Active Cancer Diagnosis on the Problem List?: No Quality: Stroke Does the patient have a stroke diagnosis?: No Physical Exam Vital Signs: Vital Signs: Last Vital Signs Temp 98.4 F 09/15/25 11:01 Pulse 108 H 09/15/25 11:01 Resp 18 09/15/25 11:01 BP 111/69 09/15/25 11:01 Pulse Ox 99 09/15/25 11:01 O2 Del Method Room Air 09/15/25 11:01 O2 Flow Rate 2 09/10/25 11:55 FiO2 24 09/03/25 12:10 BMI result Body Mass Index 31.1 Const: Other: No acute distress Resp: Other: Clear to auscultation bilaterally no rales rhonchi or wheezes Cardio: Other: No S4; positive S1-S2; no S3 murmurs rubs or gallops GI: Other: Soft nontender nondistended normoactive bowel sounds Extrem: Other: No edema bilaterally DS: Data Data Completed and Pending Labs on day of discharge: Laboratory Results - last 24 hr 09/15/25 06:45 WBC 8.5 RBC 3.82 L Hgb 9.9 L Hct 32.5 L MCV 85.1 MCH 25.9 L MCHC 30.5 L RDW 16.1 H Plt Count 220 D MPV 10.7 Immature Gran % (Auto) 0.8 H Neut % (Auto) 68.4 Lymph % (Auto) 9.5 L [place] % (Auto) 14.5 H Eos % (Auto) 6.0 H Baso % (Auto) 0.8 Lymph # (Auto) 0.8 L [place] # (Auto) 1.2 Eos # (Auto) 0.5 H Baso # (Auto) 0.1 Abs Immat Gran (auto) 0.07 H Absolute Neuts (auto) 5.8 Absolute Nucleated RBC 0.000 Nucleated RBC % (auto) 0.0 Sodium 139 Potassium 4.2 Chloride 100 Carbon Dioxide 26 Anion Gap 17 BUN 58 H Creatinine 5.92 H* Estim Creat Clear Calc 11.1 Estimated GFR 9 Fasting Glucose 97 Calcium 8.8 Total Bilirubin 0.5 AST 39 H ALT 16 Alkaline Phosphatase 69 Total Protein 6.6 Albumin 3.6 Discharge Plan Discharge Anticipated Discharge Date/Time: 09/15/25 13:57 Patient Disposition: Home Health Service Discharge Diagnosis: Acute CHF Referrals: Preet An PA-C [Primary Care Provider, Internal Medicine] - 1 Week Discharge Medications: New metoprolol succinate 100 mg Tablet Extended Release 24 Hr 100 mg PO DAILY Qty: 30 0RF Protocol: Hold for SBP/HR < HOLD for SBP < : 90 HOLD for HR < : 60 Eliquis 2.5 mg Tablet 2.5 mg PO BID Qty: 60 0RF Continued meclizine 25 mg tablet 25 mg PO TID PRN (Reason: dizziness) 30 Days Qty: 90 6RF Rx Instructions: pt states he takes one every morning febuxostat [Uloric] 40 mg tablet 40 mg PO DAILY Qty: 30 6RF fluticasone propionate 50 mcg/actuation spray,suspension 1 spray intranasal DAILY 30 Days Qty: 16 1RF gabapentin 100 mg capsule 200 mg PO BEDTIME 30 Days Qty: 60 3RF Rx Instructions: 2 capsules cholecalciferol (vitamin D3) 25 mcg (1,000 unit) capsule 25 mcg PO DAILY Qty: 90 0RF furosemide 40 mg tablet 40 mg PO DAILY atorvastatin 80 mg tablet 80 mg PO DAILY (DME) compression socks, large Misc See Rx Instructions .Route Qty: 2 0RF Rx Instructions: As directed hydroxyzine HCl 25 mg tablet 25 mg PO BEDTIME 30 Days Qty: 30 0RF amlodipine 5 mg tablet 5 mg PO DAILY 90 Days Qty: 90 1RF famotidine 10 mg tablet 10 mg PO BEDTIME 10 Days Qty: 10 0RF sennosides-docusate sodium [Colace 2-In-1] 8.6-50 mg tablet 1 tab-cap PO BEDTIME Qty: 30 0RF simethicone [Gas Relief (simethicone)] 80 mg tablet,chewable 80 mg PO BID-QID PRN (Reason: abdominal distention) Qty: 30 0RF Discontinued metoprolol tartrate 50 mg tablet 50 mg PO BID 90 Days Qty: 180 0RF Protocol: Hold for SBP/HR < HOLD for SBP < : 90 HOLD for HR < : 60 warfarin 5 mg tablet 5 mg PO KHADAR Qty: 90 0RF Protocol: Dose Management Condition: Monday () Dose/Route: 5 mg Instruction: 1 x 5 mg tablet Condition: Monday Dose/Route: 7.5 mg Instruction: 1.5 x 5 mg tablets Condition: Monday Dose/Route: 5 mg Instruction: 1 x 5 mg tablet Condition: Monday Dose/Route: 5 mg Instruction: 1 x 5 mg tablet Condition: Dose/Route: 5 mg Instruction: 1 x 5 mg tablet Condition: Monday Dose/Route: 0 mg Instruction: 0 tablets Condition: Monday Dose/Route: 2.5 mg Instruction: 0.5 x 5 mg tablets Condition: Monday () Dose/Route: 5 mg Instruction: 1 x 5 mg tablet Condition: Monday Dose/Route: 7.5 mg Instruction: 1.5 x 5 mg tablets Condition: Monday Dose/Route: 5 mg Instruction: 1 x 5 mg tablet Condition: Monday Dose/Route: 5 mg Instruction: 1 x 5 mg tablet Condition: Dose/Route: 5 mg Instruction: 1 x 5 mg tablet Condition: Monday Dose/Route: 5 mg Instruction: 1 x 5 mg tablet Condition: Monday Dose/Route: 5 mg Instruction: 1 x 5 mg tablet Protocol Text: Adjustment Start Date: Monday08/29/25 INR Value: 5.3 INR Date: 08/29/25 Recheck Date: 09/05/25 warfarin 5 mg tablet 7.5 mg PO MO Protocol: Dose Management Condition: Monday ( One) Dose/Route: 5 mg Instruction: 1 x 5 mg tablet Condition: Monday Dose/Route: 7.5 mg Instruction: 1.5 x 5 mg tablets Condition: Monday Dose/Route: 5 mg Instruction: 1 x 5 mg tablet Condition: Monday Dose/Route: 5 mg Instruction: 1 x 5 mg tablet Condition: Dose/Route: 5 mg Instruction: 1 x 5 mg tablet Condition: Monday Dose/Route: 0 mg Instruction: 0 tablets Condition: Monday Dose/Route: 2.5 mg Instruction: 0.5 x 5 mg tablets Condition: Monday () Dose/Route: 5 mg Instruction: 1 x 5 mg tablet Condition: Monday Dose/Route: 7.5 mg Instruction: 1.5 x 5 mg tablets Condition: Monday Dose/Route: 5 mg Instruction: 1 x 5 mg tablet Condition: Monday Dose/Route: 5 mg Instruction: 1 x 5 mg tablet Condition: Dose/Route: 5 mg Instruction: 1 x 5 mg tablet Condition: Monday Dose/Route: 5 mg Instruction: 1 x 5 mg tablet Condition: Monday Dose/Route: 5 mg Instruction: 1 x 5 mg tablet Protocol Text: Adjustment Start Date: Monday08/29/25 INR Value: 5.3 INR Date: 08/29/25 Recheck Date: 09/05/25 Lokelma 5 gram powder in packet 10 g PO MOWEFR PRN (Reason: high potassium) Rx Instructions: Mondays/wednesdays/fridays Discharge Orders: Discharge Order (Routine); Ordered 09/15/25 Ordered By: Jose F Rachel Diet: Advance to usual diet Activity on Discharge: As tolerated Stand Alone Forms: Patient Portal Discharge page Print Language: Polish Care Plan Goals: Your Coumadin has been stopped in favor of Eliquis. Take twice a day and there is no need for levels. Your metoprolol has been increased to 100 mg daily. Health Concerns: Continue with dialysis regimen as outlined Monday for [facility] dialysis unit on [facility]. Call to verify times Plan of Treatment: Resume all other medicines as taken prior to the hospital Assessment: Follow up with the PCP next available
[2025-09-15 15:47] VITALS: BP 137/76; PULSE 104; RESP 18; TEMP 36.8; O2SAT 98
== END 2025-09-15 16:09 | disposition home health service (06) | DRG 291 ==
LOC: HO.ED 07:48 → HO.EDOVER 08:22 → HO.IMC 09-04 18:49
PROVIDERS: Family Medicine; Internal Medicine Critical Care Medicine; Radiology Diagnostic Radiology; Student in an Organized Health Care Education/Training Program; Admitting Provider Internal Medicine; Emergency Provider Emergency Medicine; PCP Physician Assistant; Visit Provider Hospitalist
PROC: 0JH63XZ Insertion of Tunneled Vascular Access Device into Chest Subcutaneous Tissue and Fascia, Percutaneous Approach (ICD-10-PCS; principal; 2025-09-10 11:00)
DX: I13.2 Hypertensive heart and chronic kidney disease with heart failure and with stage 5 chronic kidney disease, or end stage renal disease (principal); G92.8 Other toxic encephalopathy; G93.41 Metabolic encephalopathy; N18.6 End stage renal disease; J96.01 Acute respiratory failure with hypoxia; I48.19 Other persistent atrial fibrillation; N17.9 Acute kidney failure, unspecified; I50.32 Chronic diastolic (congestive) heart failure; D64.1 Secondary sideroblastic anemia due to disease; I25.10 Atherosclerotic heart disease of native coronary artery without angina pectoris; I71.43 Infrarenal abdominal aortic aneurysm, without rupture; E78.2 Mixed hyperlipidemia; Z99.2 Dependence on renal dialysis; I48.0 Paroxysmal atrial fibrillation; I08.1 Rheumatic disorders of both mitral and tricuspid valves; N25.0 Renal osteodystrophy; E87.5 Hyperkalemia; Z20.822 Contact with and (suspected) exposure to COVID-19; Z91.148 Patient's other noncompliance with medication regimen for other reason; Z79.01 Long term (current) use of anticoagulants; Z79.899 Other long term (current) drug therapy
CPT/HCPCS: 36415; 36558; 71045; 74176; 80048; 80053; 81001; 82728; 83540; 83690; 83735; 83880; 84484; 85025; 85610; 86704; 86706; 86850; 86900; 86901; 87340; 87502; 87635; 90999; 93005; 93306; 94660; 97162; 97165; 97530; 99152; 99153; 99285; C1750; C1752; C1769; J0131; J0616; J0690; J1163; J1171; J1644; J1938; J2003; J2250; J3010; P9047; Q9957

== ENCOUNTER → 2025-09-03 05:15 | Outpatient (BNV) | payer OTHER, SELFPAY | PROVIDERS: Emergency Provider Emergency Medicine; PCP Physician Assistant; Visit Provider Radiology Diagnostic Radiology | DX: N18.6 End stage renal disease (principal); Z49.01 Encounter for fitting and adjustment of extracorporeal dialysis catheter | CPT/HCPCS: 36558; 77001 ==

== ENCOUNTER 2025-09-03 08:22 | Outpatient (BNV) | payer OTHER, SELFPAY | END 2025-09-10 10:58 | PROVIDERS: Admitting Provider Internal Medicine; Emergency Provider Emergency Medicine; PCP Physician Assistant; Visit Provider Radiology Diagnostic Radiology | DX: N19 Unspecified kidney failure (principal); Z46.82 Encounter for fitting and adjustment of non-vascular catheter | CPT/HCPCS: 36558; 77001 ==

== ENCOUNTER 2025-09-03 08:22 | Outpatient (BNV) | payer OTHER, SELFPAY | END 2025-09-05 12:00 | PROVIDERS: Admitting Provider Internal Medicine; Emergency Provider Emergency Medicine; PCP Physician Assistant; Visit Provider Internal Medicine Cardiovascular Disease | DX: I51.7 Cardiomegaly (principal); I34.0 Nonrheumatic mitral (valve) insufficiency; I36.1 Nonrheumatic tricuspid (valve) insufficiency | CPT/HCPCS: 93306 ==

== ENCOUNTER → 2025-09-03 08:22 | Outpatient (BNV) | payer OTHER, SELFPAY | PROVIDERS: Admitting Provider Internal Medicine; Emergency Provider Emergency Medicine; PCP Physician Assistant; Visit Provider Internal Medicine Critical Care Medicine | DX: I12.0 Hypertensive chronic kidney disease with stage 5 chronic kidney disease or end stage renal disease (principal); G93.41 Metabolic encephalopathy; N18.6 End stage renal disease | CPT/HCPCS: 90935; 99232; 99499 ==

== ENCOUNTER → 2025-09-03 08:22 | Outpatient (BNV) | payer OTHER, SELFPAY | PROVIDERS: Admitting Provider Internal Medicine; Emergency Provider Emergency Medicine; PCP Physician Assistant; Visit Provider Internal Medicine Cardiovascular Disease | DX: I12.9 Hypertensive chronic kidney disease with stage 1 through stage 4 chronic kidney disease, or unspecified chronic kidney disease (principal); I50.9 Heart failure, unspecified; N17.9 Acute kidney failure, unspecified; N18.9 Chronic kidney disease, unspecified | CPT/HCPCS: 93010; 99233 ==

== ENCOUNTER → 2025-09-03 08:22 | Outpatient (BNV) | payer OTHER, SELFPAY | PROVIDERS: Admitting Provider Internal Medicine; Emergency Provider Emergency Medicine; PCP Physician Assistant; Visit Provider Internal Medicine | DX: N18.6 End stage renal disease (principal); I48.21 Permanent atrial fibrillation; I12.0 Hypertensive chronic kidney disease with stage 5 chronic kidney disease or end stage renal disease | CPT/HCPCS: 99232; 99233 ==

== ENCOUNTER → 2025-09-20 23:59 | Outpatient (BNV) | payer OTHER, SELFPAY | PROVIDERS: PCP Physician Assistant; Visit Provider Internal Medicine Nephrology | DX: N18.6 End stage renal disease (principal) | CPT/HCPCS: 90962 ==

== ENCOUNTER 2025-09-24 12:58 | Outpatient (AMB) | payer OTHER, SELFPAY ==
[2025-09-24 13:02] VITALS: BP 122/70; PULSE 67; BMI 27.7
--- NOTE | 2025-09-24 13:02 | MHC.OFFVIS ---
Vital Signs 09/24/25 13:02 Height 5 ft 6 in Weight 171 lb 8.314 oz BMI 27.7 BP 122/70 Blood Pressure Location Lt brachial Position Sitting Pulse 67 Pulse Source Pulse Oximeter Intake Visit Reasons: s/p CTA and fasting labs Quality Control Representative Required: Yes Quality Control Representative Services: Quality Control Representative Offered & Declined Accompanied by: Son Allergies lisinopril (LISINOPRIL) Allergy (Severe, Verified 09/24/25 13:05) ACUTE KIDNEY INJURY oxycodone (Percocet) Allergy (Intermediate, Verified 09/24/25 13:05) agitation codeine (CODEINE) Allergy (Unknown, Verified 09/24/25 13:05) AGITATION morphine (MORPHINE) Allergy (Unknown, Verified 09/24/25 13:05) AGITATION, confusion dicyclomine (From A-Spas (dicyclomine)) Adverse Reaction (Intermediate, Verified 09/24/25 13:05) Confusion From PERCOCET Allergy (Unknown, Uncoded 09/03/25 04:46) AGITATION Medication List - Last Reconciled 09/24/25 by Abrahan Patel NP apixaban (Eliquis) 2.5 mg PO BID atorvastatin 80 mg PO DAILY cholecalciferol (vitamin D3) 25 mcg PO DAILY compression socks, large As directed febuxostat (Uloric) 40 mg PO DAILY fluticasone propionate 50 mcg/actuation 1 spray intranasal DAILY 30 days furosemide 40 mg PO DAILY gabapentin 200 mg (2 x 100 mg) PO BEDTIME 30 days meclizine 25 mg PO TID PRN 30 days metoprolol succinate ER 100 mg See Protocol PO DAILY simethicone (Gas Relief (simethicone)) 80 mg PO BID-QID PRN sodium zirconium cyclosilicate (Lokelma) 5 grams PO Q OTHER DAY HPI Comments Details: This is a 75-year-old male patient coming in for a hospital discharge follow-up, accompanied by his son who netting inspector throughout the visit. Patient with a history of AFib, hyperlipidemia, chronic kidney disease, abdominal aortic aneurysm, hypertension, and coronary artery disease with prior PCI in 2018. Patient was brought into the hospital for worsening shortness of breath, abdominal pain, and confusion. Patient was noted to have a creatinine of 6. Patient was also noted to be hypertensive and in congestive heart failure. Patient was diuresed with IV Lasix and and later had AFib with RVR requiring Cardizem drip. Patient underwent dialysis and is on dialysis outpatient as well. Today, patient reports feeling well overall without any cardiac symptoms of exertional chest pain, shortness of breath, palpitations, dizziness, orthopnea, PND, leg edema presyncope or syncope. Patient reports compliance with all his medications. [facility] Medical History CAD (coronary artery disease) ESRD (end stage renal disease) Noncompliance with medication regimen Acute exacerbation of congestive heart failure CKD (chronic kidney disease) stage 5, GFR less than 15 ml/min Anemia Atrial fibrillation Abdominal bloating Generalized abdominal pain HTN (hypertension) Allergies Sinus bradycardia Pre-op examination Annual physical exam History of TIA (transient ischemic attack) Gout Personal history of nicotine dependence Chronic kidney disease, stage 3 unspecified Benign prostatic hyperplasia with lower urinary tract symptoms Paroxysmal atrial fibrillation Surgical History Stented coronary artery Hx of colonoscopy Hx of cardiac cath Hx of cystoscopy History of esophagogastroduodenoscopy (EGD) Hx of cataract extraction Family History Mother CAD (coronary artery disease) Diabetes HTN (hypertension) Father CAD (coronary artery disease) Diabetes HTN (hypertension) Social History Household Members: None Housing: House Do you presently have visiting nurse or other home services: No Alcohol intake: former Comment: Son is bedside Patient Tobacco Use Status: Former Tobacco user Tobacco use type: Cigarette Years Smoked: 40 +/- e-Cigarette/Vaping Use: Never Used Second Hand Smoke Exposure: No service: No Current occupational status: retired and disabled Cognitive needs: No Hearing needs: No Vision needs: Yes Review of Systems Const Denies daytime sleepiness, Denies difficulty sleeping, Denies snoring, Denies stops breathing during sleep and Denies weakness Card Denies chest pain, Denies rapid heart rate, Denies irregular heart rhythm, Denies claudication, Denies leg edema, Denies lightheadedness, Denies palpitations, Denies dyspnea, Denies dyspnea on exertion, Denies orthopnea, Denies paroxysmal nocturnal dyspnea and Denies slow heart rate Resp Denies cough, Denies dyspnea, Denies dyspnea on exertion and Denies snoring GI Reports no additional complaints, Denies hematochezia, Denies change in stool character and Denies dyspepsia Musc Denies abnormal gait, Denies muscle weakness and Denies numbness Neuro Denies abnormal gait, Denies numbness and Denies weakness Endo Denies palpitations Physical Exam Vital Signs: Last Vital Signs Pulse 67 09/24/25 13:02 BP 122/70 09/24/25 13:02 BMI result Body Mass Index 27.7 Const General: cooperative, healthy appearing, comfortable and no acute distress Orientation/consciousness: patient oriented x3 HEENT Head: Yes normal to inspection Neck Neck: Yes normal visual inspection, Yes trachea midline and Yes supple Chest Chest palpation & inspection: normal inspection of the chest Resp Effort & Inspection: normal respiratory effort Auscultation: clear to auscultation bilaterally, no crackles, no rales, no rhonchi and no wheezes Cardio Jugular venous distension: no JVD Palpation: normal PMI Rate: regular rate Rhythm: regular rhythm Heart sounds: S1 normal heart sound present, S2 normal heart sound present, no click, no gallops, no murmurs and no rubs Peripheral pulses: Peripheral pulses 2+ throughout GI Inspection: Yes normal to inspection Palpation (GI): Soft to palpation Auscultation: normal bowel sounds Other: Dialysis catheter to his right upper chest Skin General skin exam: no rashes or lesions noted Neuro General: patient oriented x3 Extrem General: Yes normal to inspection, No no pedal edema and No calf tenderness Psych Appearance: grossly normal Mental Status: mental status grossly normal Speech and movement: Normal speech and movement present Assessment & Plan Assessment & Plan (1) CAD (coronary artery disease): Code(s): I25.10 - Atherosclerotic heart disease of [place] coronary artery without angina pectoris Category: Medical Qualifiers: Coronary Disease-Associated Artery/Lesion type: [place] artery [place] vs. transplanted heart: [place] heart Associated angina: without angina Qualified Code(s): I25.10 - Atherosclerotic heart disease of [place] coronary artery without angina pectoris Plan: 06/11/2025-patient underwent a chest CTA that showed severe coronary artery atherosclerosis. 09/05/2025-echo study showed decreased EF between 35-40% from 40-45 previously, mildly increased LV wall thickness, moderately dilated left atrium, severely dilated right atrium, moderate mitral valve regurgitation, [id number] tricuspid valve regurgitation. History of prior PCI in 2018. In the past given his reduced EF and severe coronary artery disease, we had planned for a coronary CTA. This is not completed due to unclear reasons. We will continue to pursue this. Patient was noted to be in heart failure and was diuresed. Given his acute kidney injury, patient received dialysis and now is ongoing outpatient dialysis. Clinically euvolemic and without any cardiac symptoms. Continue dialysis, followed by Nephrology. Continue Lasix therapy. Discussed in detail about importance of med compliance. Continue statin and metoprolol therapy. Advised on low-salt diet, daily weight monitoring, fluid restriction 1.5-2 L daily. (2) Congestive heart failure: Code(s): I50.9 - Heart failure, unspecified Plan: As above. (3) Atrial fibrillation: Code(s): I48.91 - Unspecified atrial fibrillation Category: Medical Qualifiers: Atrial fibrillation type: permanent Qualified Code(s): I48.21 - Permanent atrial fibrillation Plan: History of chronic AFib who has failed rhythm control. Heart rate today is regular. Patient was noted to be in AFib with RVR in the hospital and was treated with Cardizem drip. Continue metoprolol therapy. Continue Eliquis for full anticoagulation. No reported signs of bleeding or falls. (4) Aneurysm of descending thoracic aorta: Code(s): I71.2 - Thoracic aortic aneurysm, without rupture Category: Medical Qualifiers: Presence of rupture: without rupture Qualified Code(s): I71.23 - Aneurysm of the descending thoracic aorta, without rupture Plan: Followed by Dr. Hooks. (5) High cholesterol: Code(s): E78.00 - Pure hypercholesterolemia, unspecified Category: Medical Plan: As above. (6) Hospital discharge follow-up: Code(s): Z09 - Encounter for follow-up examination after completed treatment for conditions other than malignant neoplasm Plan: As above. Advised heart healthy diet, regular exercise, med compliance, and aggressive management of vascular risk factors. Follow-up after coronary CTA. In the interim, patient will call the office with any concerns or change in symptoms. Advised to seek ER care in case of exertional chest pain not resolved with rest. This note was generated using voice recognition software. While every effort has been made to ensure accuracy and proper landscape management technician, there may be occasional errors that could affect the content or meaning of the described symptoms. Orders: Orders CT Cardiac Coronary Angio Today I25.10 - Atherosclerotic heart disease of [place] coronary artery without angina pectoris Coding Level of Care Code Est Pt Level 4 (58807) Complex EM visit Add On G2211 Diagnoses Coronary artery disease involving [place] coronary artery of [place] heart without angina pectoris I25.10 Coronary Disease-Associated Artery/Lesion type: [place] artery [place] vs. transplanted heart: [place] heart Associated angina: without angina Congestive heart failure I50.9 Permanent atrial fibrillation I48.21 Atrial fibrillation type: permanent Aneurysm of descending thoracic aorta without rupture I71.23 Presence of rupture: without rupture High cholesterol E78.00 Hospital discharge follow-up Z09 Time Spent (min) 34 Comment Time spent in reviewing the chart, test results, assessment, counseling and documentation.
--- OUTSIDE RECORDS SUMMARY | 2025-09-24 15:43 | XMS_ITS | Encounter Summary ---
Author Organization [employer] Address [address] [facility] [address] [place] [address] Care Team Providers Care Horticulture Teacher Name Role Phone Sherry Ward MD Primary Care Provider [phone] Robe Parker PharmD Unavailable [phone] Reason for Visit * Reason Onset Date Comments triage 11/25/2022 Encounter Details Date Type Department Care Team ([facility] st Contact Info) Description 11/25/2022 Telephone [facility] MEDICINE [address], [place] [phone] Sherry Ward MD [address] [place], [place] [phone] triage Social History Tobacco Use Types Packs/Day [...] 11/25/2022 4:06 PM EST Triage call with [employer] Operator ID [id number] Pt reports son came over this morning to test with home test. Pt isn't sure if it is positive and is requesting medication. Pt reports has had Covid before . Pt is unable to come to [facility] today for further testing. Pt symptoms [...] on filedocumented in this encounter Care Teams Horticulture Teacher Relationship Specialty Start Date End Date Sherry Ward MD [address] [place] [address] PCP - General Family Medicine 11/20/18 12/17/23 Robe Parker, IrisD [address] [place] [address] Pharmacist Internal Medicine 06/15/23 documented as of this encounter
--- OUTSIDE RECORDS SUMMARY | 2025-09-24 15:43 | XMS_ITS | Encounter Summary ---
Author Organization [employer] Address [address] [facility] [address] [place] [address] Care Team Providers Care Loan Specialist Name Role Phone Robe Parker PharmD Unavailable [phone] Reason for Visit * Reason Comments Med Refill Encounter Details Date Type Department Care Team ([facility] st Contact Info) Description 03/08/2024 Refill [facility] MEDICINE [address] [place] [address] Roopa Unger ANP [address] [place] [address] Social History Tobacco Use Types Packs/Day Years [...] on filedocumented in this encounter Care Teams Loan Specialist Relationship Specialty Start Date End Date Robe Parker PharmD [address] [place] [phone] Pharmacist Internal Medicine 06/15/23 documented as of this encounter
--- OUTSIDE RECORDS SUMMARY | 2025-09-24 15:43 | XMS_ITS | Clinical Summary ---
Author Organization [employer] Address [address] [facility] 7t [place] [address] Care Team Providers Care Nuisance Animal Damage Control Agent Name Role Phone Robe Parker PharmD Unavailable [phone] Allergies Active Allergy Reactions Criticality Noted Date [...] 1 3 Active Lancets (OneTouch Delica Plus [id number]) [facility] Check blood sugar once daily 100 each [...] taking febuxostat 40 mg daily prescribed by student assistant - continue febuxostat 40 mg daily - [...] fibrilation - medication: warfarin - [facility] - most recent INR 2.2 on 10/20/23 - continue current treatment plan Assessment & Plan (03/21/2023 11:52 AM EDT): - indication: Atrial fibrilation - medication: warfarin - monitored by [facility] - most recent [...] Assessment & Plan (11/05/2023 4:30 PM EST): -Work Counselor: Dr. Roland, last seen in Sep 2023 -Baseline SCr 2.0-2.4; eGFR 27-32, K 4.9-5.4 -Avoid nephrotoxic drugs/substances and behaviors, including NSAIDs use. -Renal dose medications. Assessment & Plan (03/13/2023 1:36 PM EDT): -Work Counselor: Dr. Roland, last seen in 12/27/21 -Baseline SCr 2.4-2.8; eGFR 22-26, CrCl 28.5 -Most recent lab: 08/05/22 K 5.2, BUN 46, SCr 2.48; eGFR 26 -Avoid nephrotoxic drugs/substances and behaviors, including NSAIDs use. -Renal dose medications. Assessment & Plan (12/19/2022 1:28 PM EST): -Work Counselor: Dr. Roland, last seen in 12/27/21 -Baseline SCr 2.4-2.8; eGFR 22-26, CrCl 28.5 -Most recent lab: 08/05/22 K 5.2, BUN 46, SCr 2.48; eGFR 26 -Avoid nephrotoxic drugs/substances and behaviors, including NSAIDs use. -Renal dose medications. Assessment & Plan (11/07/2022 4:55 AM EST): -Work Counselor: Dr. Roland, last seen in 12/27/21 -Baseline SCr 2.4-2.8; eGFR 22-26, CrCl 28.5 -Most recent lab: 08/05/22 K 5.2, BUN 46, SCr 2.48; eGFR 26 -Avoid nephrotoxic drugs/substances and behaviors, including NSAIDs use. -Renal dose medications. Chronic interstitial nephritis 04/02/2021 Proteinuria 04/02/2021 Ischemic heart disease 04/30/2018 Assessment & Plan (11/05/2023 4:06 PM EST): -X Ray Service Engineer, Dr. Cain, seen in April 2023 [...] Assessment & Plan (03/13/2023 1:29 PM EDT): -X Ray Service Engineer, Dr. Cain, seen on 11/10/22 -TIA in January 2018. Dx Afib. Started on Coumadin. -03/14/18 BRITTANY to distal RCA. Completed uninterrupted Plavix and Coumadin therapy for 1 year. Plan was to swithc Plavix to ASA. Pt is not on ASA or Plavix at this time because his CAD is stable per industrial machine system technician. - Last echo in 12/28/21: Normal LV function, EF 55-60%. slight decrease from last echo. mild GERD reguigitation -Continue current medications Assessment & Plan (12/25/2022 7:27 AM EST): -X Ray Service Engineer, Dr. Cain, seen on 11/10/22 -TIA in January 2018. Dx Afib. Started on Coumadin. -03/14/18 BRITTANY to distal RCA. Completed uninterrupted Plavix and Coumadin therapy for 1 year. Plan was to swithc Plavix to ASA. Pt is not on ASA or Plavix at this time because his CAD is stable per industrial machine system technician. - Last echo in 12/28/21: Normal LV function, EF 55-60%. slight decrease from last echo. mild GERD reguigitation -Continue current medications Assessment & Plan (11/07/2022 5:02 AM EST): -X Ray Service Engineer, Dr. Cain, seen on 05/19/22 -TIA in January 2018. Dx Afib. Started on Coumadin. -03/14/18 BRITTANY to distal RCA. Completed uninterrupted Plavix and Coumadin therapy for 1 year. Plan was to swithc Plavix to ASA. Pt is not on ASA or Plavix at this time because his CAD is stable per industrial machine system technician. - Last echo in 12/28/21: Normal [...] whether he is bradycardia and tachycardia -his industrial machine system technician recommends rate control rather than rhythm control - Continue rate control with metoprolol tartrate 100 mg bid - Continue digoxin 125 mcg daily - Continue warfarin, which is monitored by [facility] -- Treatment Hx: [...] whether he is bradycardia and tachycardia -his industrial machine system technician recommends rate control rather than rhythm control - Continue rate control with metoprolol tartrate 100 mg bid - Continue digoxin 125 mcg daily - Continue warfarin, which is monitored by [facility] -- Treatment Hx: [...] wheter he is bradycardiac and tachycardiac -his industrial machine system technician recommends rate control rather than rhythm control - Continue rate control with metoprolol tartrate 100 mg bid - Continue digoxin 125 mcg daily - Continue warfarin, which is monitored by [facility] -- Treatment Hx: [...] Logan -Pt requests to be referred to [facility] where his son goes [...] wheter he is bradycardiac and tachycardiac -his industrial machine system technician recommends rate control rather than rhythm [...] decreased -Continue Coumadin, which is monitored by [facility]. -Holter monitor on 04/13/22 showed average HR 61 bpm, sinus. A-fib 36%. -Holter monitor on 09/08/22 showed average HR 101 bpm, baseline A-fib, HR > 100 for 67% period -Pt states he has been taking digoxin. Will confirm it with industrial machine system technician. Mild intermittent asthma 09/01/201503/2023 Immunizations Immunization Administration [...] without long-term current use of insulin ([facility]) COLONOSCOPY Routine 04/22/2019 from Last 3 Months or Most Recently Relevant to Health Maintenance Results * (ABNORMAL) Lipid Panel with Reflex to Direct LDL (10/30/2023 2:57 PM EST) Triglycerides 433(H) <150 mg/dL [facility] Comment:Desirable Triglyceri de: less than 150 mg/dLBorderline High Triglyceride 150-199 mg/dLHigh Triglyceride: 200-499 mg/dLVery High Triglyceride: greater than or equal to 5OO mg/dL Cholesterol 266(H) <200 mg/dL [facility] Comment:Desirable Cholestero l: less than 200 mg/dLBorderline High Cholesterol: 200-239 mg/dLHigh Cholesterol: greater than 239 mg/dL LDL Cholesterol Calculated TNP <100 mg/dL [facility] Comment:Unable to calculate the LDL. The formula of Friedwald,Olsen, and Stefanie is only valid if the triglycerides areless than 400 mg/dl. HDL Cholesterol 28(L) >40 mg/dL [facility] Comment:Desirable HDL: great er than 40 mg/dL Note: This HDL assay may give artificially low results in patients with liver disease. Blood 10/30/2023 2:57 PM EST 10/30/2023 3:58 PM EST us Sherry Ward MD LAB BLOOD ORDERABLES Final Resul t [facility] [address] [place] [phone] * (ABNORMAL) POCT glycosylated hemoglobin (Hgb A1c) (10/30/2023 2:23 PM EST) Hemoglobin A1C 7.1(A) 4.0 - 6.0 % QC Media Lot # [id number] Lot# Expiration Date Blood Capillary blood specimen / Unknown 10/30/2023 2:23 PM EST us Sherry Ward MD POINT OF CARE TEST ENTER/EDIT OR DERABLES Final Result * Colonoscopy (04/22/2019) [facility] Signature Colonoscopy Normal Normal Antonio Provider HEALTH MAINTENANCE Final Result from Last 3 Months or Most Recently Relevant to Health Maintenance Insurance [facility] [employer]TE [facility] [address] [place] [address] [place] [address] [address] [place] [address] Care Teams Nuisance Animal Damage Control Agent Relationship Specialty Start Date End Date Robe Parker, PharmD [address] [place] [address] Pharmacist Internal Medicine 06/15/23
--- OUTSIDE RECORDS SUMMARY | 2025-09-24 15:43 | XMS_ITS | Clinical Summary ---
Author Organization [facility] Address [address] [facility] [address] [place] [address] Phone Care Team Providers Care Industrial Relations Worker Name Role Phone Joycelyn Brothers DO Primary [...] adenomatous polyp of colon 01/26/2024 Tinnitus 03/21/2023 longterm current use of anticoagulant Overview (01/26/2024): Last Assessment & Plan: - indication: Atrial fibrilation - medication: warfarin - monitored by [facility] - most recent INR 1.6 [...] 04/02/2021 Overview (01/26/2024): Last Assessment & Plan: -Jewel Bearing Broacher: Dr. Roland, last seen in 12/27/21 -Baseline SCr 2.4-2.8; eGFR 22-26, CrCl 28.5 -Most recent lab: 08/05/22 K 5.2, BUN 46, SCr 2.48; eGFR 26 -Avoid nephrotoxic drugs/substances and behaviors, including NSAIDs use. -Renal dose medications. Tinea pedis 04/30/2018 Ischemic heart disease 04/30/2018 Overview (01/26/2024): Last Assessment & Plan: -Sales Operations Lead, Dr. Cain, seen on 11/10/22 -TIA in January 2018. Dx Afib. Started on Coumadin. -03/14/18 BRITTANY to distal RCA. Completed uninterrupted Plavix and Coumadin therapy for 1 year. Plan was to swithc Plavix to ASA. Pt is not on ASA or Plavix at this time because his CAD is stable per financial professional. - Last echo in 12/28/21: Normal LV function, EF 55-60%. slight decrease from last echo. mild GERD reguigitation -Continue current medications History of placement of stent for coronary arter y disease 04/30/2018 Chronic atrial fibrillation 02/09/2018 Overview (01/26/2024): Last Assessment & Plan: A-fib today, rate controlled. pt is usually asymptomatic whether he is bradycardia and tachycardia -his financial professional recommends rate control rather than rhythm control - Continue rate control with metoprolol tartrate 100 mg bid - Continue digoxin 125 mcg daily - Continue warfarin, which is monitored by [facility] Anticoagulation clinic -- Treatment Hx: --Previously on [...] Years) Discontinued 03/21/2016, 06/18/2015, 04/14/2010 [address] [place] [address] [employer] ([id number]) [address] [place] [address] [facility] ([id number]) Care Teams Industrial Relations Worker Relationship Specialty Start Date End Date Joycelyn Brothers DO PCP - General 11/30/20
--- OUTSIDE RECORDS SUMMARY | 2025-09-24 15:43 | XMS_ITS | Encounter Summary ---
Author Organization [employer] Address 75 [facility] 7t [place] [address] Care Team Providers Care Projects Manager Name Role Phone Robe Parker PharmD Unavailable [phone] Reason for Visit * Reason Comments Med Refill Encounter Details Date Type Department Care Team ([facility] st Contact Info) Description 03/08/2024 Refill [facility] MED[facility] [address] [place] [address] Sherry Ward MD [address] [place], [place] [phone] Neuropathic pain Social History Tobacco Use Types [...] pain documented in this encounter Care Teams Projects Manager Relationship Specialty Start Date End Date Robe Parker PharmD [address] [place] [phone] Pharmacist Internal Medicine 06/15/23 documented as of this encounter
--- OUTSIDE RECORDS SUMMARY | 2025-09-24 15:43 | XMS_ITS | Encounter Summary ---
Author Organization [employer] Address [address] [facility] 7t [place] [address] Care Team Providers Care Night Court Magistrate Name Role Phone Sherry Ward MD Primary Care Provider [phone] Robe Parker PharmD Unavailable [phone] Encounter Details Date Type Department Care Team (Late st Contact Info) Description 11/02/2023 Orders Only [facility] MED[facility]INE [address] [place], [place] [phone] Sherry Ward MD [address] [place], [place] [phone] Social History Tobacco Use Types Packs/Day Years [...] on filedocumented in this encounter Care Teams Night Court Magistrate Relationship Specialty Start Date End Date Sherry Ward MD [address] [place] [address] PCP - General Family Medicine 11/20/18 12/17/23 Robe Parker, PharmD [address] [place] [address] Pharmacist Internal Medicine 06/15/23 documented as of this encounter
--- OUTSIDE RECORDS SUMMARY | 2025-09-24 15:43 | XMS_ITS | Patient Health Record ---
Author Organization [facility] Address [address] [place] [address] Care Team Providers Care Embedded Engineer Name Role Phone Joycelyn Brothers M.D. Primary Care Provider Jasson Adams Unavailable [phone] Allergies Allergen (clinical drug ingredient) Drug/Non Drug [...] Problem Screening for malignant neoplasm of colon (835848618) Encounter for screening for malignant neoplasm of colon (Z12.11) Active confirmed Problem History of adenomatous polyp of colon (202861677) History of adenomatous polyp of colon (Z86.010) Active confirmed Problem Abdominal bloating (269137055) Abdominal bloating (R14.0) Active confirmed Problem Preprocedural examination (807892823661560) Preprocedural examination (Z01.818) Active confirmed Problem Gallstones (224798599) Gallstones (K80.20) Active confirmed Problem Borborygmus (702215209) Borborygmus (R19.8) Active confirmed Plan Of Treatment Future Test Test Name Order Date UPPER GI ENDOSCOPY 08/23/2012 COLONOSCOPY 08/23/2012 COLONOSCOPY 12/26/2018 Insurance Providers Payer Name Payer Address Payer Phone Subscriber Number Group Number Insured Name Patient Relationship to Insured Coverage Start Date Coverage End Date [facility] [employer] [address] [address] [place] [phone] [id number] SEMAJ PATTERSON Self - patient is the insured Medical (General) History Medical History History ICD Code Kidney disease-followed by Dr. Tae johansen HTN Denies MD,CVA,Lung disease Hyperlipidemia Rx'd for [...]
--- OUTSIDE RECORDS SUMMARY | 2025-09-24 15:43 | XMS_ITS | Encounter Summary ---
Author Organization [facility] Address [address] [facility] [address] [place] [address] Phone Care Team Providers Care Baton Twirler Name Role Phone Joycelyn Brothers DO Primary Care Provider Ema ilva Encounter Details Date Type Department Care Team (Late st Contact Info) Description 05/29/2021 Orders Only [facility] [address] [place] [phone] Alex Garcia MD Chronic kidney disease stage [...] (HCC) documented in this encounter Care Teams Baton Twirler Relationship Specialty Start Date End Date Joycelyn Brothers DO PCP - General 11/30/20 documented as of this encounter
--- OUTSIDE RECORDS SUMMARY | 2025-09-24 15:43 | XMS_ITS | Encounter Summary ---
Author Organization [facility] Address [address] [place] [address] Phone Care Team Providers Care Car Electronics Installer Name Role Phone Joycelyn Brothers DO Primary Care Provider Unava ilable Encounter Details Date Type Department Care Team (Late st Contact Info) Description 11/08/2022 Telephone [facility] [address] [place] [address] Alex Garcia MD Social History [...] She also wants to add that his deli slicer started him on digoxin 0.1 mg daily. Please advise Thank you CB# [phone] documented in this encounter Plan of Treatment Not on file documented as of this encounter Visit Diagnoses Not on filedocumented in this encounter Care Teams Car Electronics Installer Relationship Specialty Start Date End Date Joycelyn Brothers DO PCP - General 11/30/20 documented as of this encounter
--- OUTSIDE RECORDS SUMMARY | 2025-09-24 15:43 | XMS_ITS | Encounter Summary ---
Author Organization [employer] Address [address] [facility] 7t [place] [address] Care Team Providers Care Fitness Professional Name Role Phone Robe Parker PharmD Unavailable [phone] Reason for Visit * Reason Comments Med Refill Encounter Details Date Type Department Care Team ([facility] st Contact Info) Description 01/11/2024 Refill [facility] [address] [place] [address] Jaqui Chowdary MD [address] [place], [place] [phone] Social History Tobacco Use Types Packs/Day Years [...] on filedocumented in this encounter Care Teams Fitness Professional Relationship Specialty Start Date End Date Robe Parker PharmD [address] [place] [address] Pharmacist Internal Medicine 06/15/23 documented as of this encounter
--- OUTSIDE RECORDS SUMMARY | 2025-09-24 15:43 | XMS_ITS | Encounter Summary ---
Author Organization [employer] Address [address] [facility] 7t [place] [address] Care Team Providers Care Kennel Assistant Name Role Phone Sherry Ward MD Primary Care Provider [phone] Robe Parker PharmD Unavailable [phone] Encounter Details Date Type Department Care Team (Late st Contact Info) Description 11/02/2023 Orders Only [facility] MED[facility]INE [address] [place], [place] [phone] Sherry Ward MD [address] [place], [place] [phone] Left foot pain (Primary Dx) Social History [...] limb documented in this encounter Care Teams Kennel Assistant Relationship Specialty Start Date End Date Sherry Ward MD [address] [place] [address] PCP - General Family Medicine 11/20/18 12/17/23 Robe Parker, PharmD [address] [place] [address] Pharmacist Internal Medicine 06/15/23 documented as of this encounter
--- OUTSIDE RECORDS SUMMARY | 2025-09-24 15:43 | XMS_ITS | Encounter Summary ---
Author Organization [employer] Address [address] [place] [address] 7t [place] [address] Care Team Providers Care O And M Supervisor Name Role Phone Sherry Ward MD Primary Care Provider [phone] Robe Parker PharmD Unavailable [phone] Encounter Details Date Type Department Care Team (Late st Contact Info) Description 01/23/2023 Orders Only [facility] MEDICINE [address] [place] [address] Nivia Serrato MD [address] [place], [place] [phone] Hyperkalemia (Primary Dx) Social History Tobacco Use [...] Hyperpotassemia documented in this encounter Care Teams O And M Supervisor Relationship Specialty Start Date End Date Sherry Ward MD [address] [place] [phone] PCP - General Family Medicine 11/20/18 12/17/23 Robe Parker, PharmD [address] [place] [address] Pharmacist Internal Medicine 06/15/23 documented as of this encounter
--- OUTSIDE RECORDS SUMMARY | 2025-09-24 15:43 | XMS_ITS | Encounter Summary ---
Author Organization [employer] Address [address] [facility] 7t [place] [address] Care Team Providers Care Java Enterprise Architect Name Role Phone Robe Parker PharmD Unavailable [phone] Reason for Visit * Reason Comments Med Refill Encounter Details Date Type Department Care Team ([facility] st Contact Info) Description 05/07/2024 Refill [facility] MED[facility]INE [address] [place] [address] Sherry Ward MD [address] [place], [place] [phone] Social History Tobacco Use Types Packs/Day Years [...] on filedocumented in this encounter Care Teams Java Enterprise Architect Relationship Specialty Start Date End Date Robe Parker PharmD [address] [place] [address] Pharmacist Internal Medicine 06/15/23 documented as of this encounter
--- OUTSIDE RECORDS SUMMARY | 2025-09-24 15:43 | XMS_ITS | Encounter Summary ---
Author Organization [employer] Address [address] [facility] 7t [place] [address] Care Team Providers Care Director Information Security Name Role Phone Roeb Parker PharmD Unavailable [phone] Reason for Visit * Reason Comments Med Refill Encounter Details Date Type Department Care Team ([facility] st Contact Info) Description 03/11/[address] [facility] MEDICINE [address] [place] [address] Sherry Ward MD [address] [place], [place] [phone] Neuropathic pain Social History Tobacco Use Types [...] pain documented in this encounter Care Teams Director Information Security Relationship Specialty Start Date End Date Robe Parker PharmD [address] [place] [address] Pharmacist Internal Medicine 06/15/23 documented as of this encounter
--- OUTSIDE RECORDS SUMMARY | 2025-09-24 15:43 | XMS_ITS | Encounter Summary ---
Author Organization [employer] Address [address] [place] [address] 7t [place] [address] Care Team Providers Care Fire Department Battalion Chief Name Role Phone Sherry Ward MD Primary Care Provider [phone] Robe Parker PharmD Unavailable [phone] Reason for Referral * Imaging (Routine) - Closed Specialty Diagnoses / Procedures Referred By Contac t Referred To Contact Diagnoses Vertigo Ischemic heart disease Chronic atrial fibrillation (CMS/HCC) (HCC) Essential hypertension Procedures Mr Brain w/ and w/o Contrast Sherry Ward MD [address] [place] [address] Phone: tel: fax: [facility] MRI and CT Scan [address] [place] [address] Phone: tel: fax: Referral ID Status Reason Start Date Expiration Date Visits Re quested Visits Authorized [id number] Closed 11/17/2022 11/17/2023 1 1 Encounter Details Date Type Department Care Team (Late st Contact Info) Description 11/08/2022 Orders Only [facility] MEDICINE [address] [place], [place] [phone] Sherry Ward MD [address] [place], [place] [phone] Vertigo (Primary Dx); Ischemic heart disease; Chronic [...] hypertension documented in this encounter Care Teams Fire Department Battalion Chief Relationship Specialty Start Date End Date Sherry Ward MD [address] [place] [address] PCP - General Family Medicine 11/20/18 12/17/23 Robe Parker, Gabby [address] [place] [address] Pharmacist Internal Medicine 06/15/23 documented as of this encounter
--- OUTSIDE RECORDS SUMMARY | 2025-09-24 15:43 | XMS_ITS | Encounter Summary ---
Author Organization [employer] Address [address] [facility] 7t [place] [address] Care Team Providers Care Superintendent Terminal Name Role Phone Robe Parker PharmD Unavailable [phone] Reason for Visit * Reason Comments Med Refill Encounter Details Date Type Department Care Team ([facility] st Contact Info) Description 09/26/2024 Refill [facility] MEDICINE [address] [place] [address] Sherry Ward MD [address] [place], [place] [phone] Dyslipidemia Social History Tobacco Use Types Packs/Day [...] hyperlipidemia documented in this encounter Care Teams Superintendent Terminal Relationship Specialty Start Date End Date Robe Parker PharmD [address] [place] [address] Pharmacist Internal Medicine 06/15/23 documented as of this encounter
--- OUTSIDE RECORDS SUMMARY | 2025-09-24 15:43 | XMS_ITS | Encounter Summary ---
Author Organization [employer] Address [address] [facility] 7t [place] [address] Care Team Providers Care Pattern Drafter Name Role Phone Robe Parker PharmD Unavailable [phone] Reason for Visit * Reason Comments Med Refill Encounter Details Date Type Department Care Team ([facility] st Contact Info) Description 08/05/2024 Refill [facility] MEDICINE [address] [place] [address] Sherry Ward MD [address] [place], [place] [phone] Social History Tobacco Use Types Packs/Day Years [...] on filedocumented in this encounter Care Teams Pattern Drafter Relationship Specialty Start Date End Date Robe Parker PharmD [address] [place] [address] Pharmacist Internal Medicine 06/15/23 documented as of this encounter
--- OUTSIDE RECORDS SUMMARY | 2025-09-24 15:43 | XMS_ITS | Encounter Summary ---
Author Organization [employer] Address [address] [facility] 7t [place] [address] Care Team Providers Care Events Intern Name Role Phone Sherry Ward MD Primary Care Provider [phone] Robe Parker PharmD Unavailable [phone] Encounter Details Date Type Department Care Team (Late st Contact Info) Description 11/04/2022 Orders Only [facility] MEDICINE [address] [place] [address] Sharon Ko, RN Social History Tobacco Use [...] on filedocumented in this encounter Care Teams Events Intern Relationship Specialty Start Date End Date Sherry Ward MD 230 [place] [address] PCP - General Family Medicine 11/20/18 12/17/23 Robe Parker, IrisD [address] [place] [address] Pharmacist Internal Medicine 06/15/23 documented as of this encounter
== END 2025-09-24 13:43 | disposition home or self-care (01) ==
PROVIDERS: PCP Physician Assistant
DX: I25.10 Atherosclerotic heart disease of native coronary artery without angina pectoris (principal); I50.9 Heart failure, unspecified; I48.21 Permanent atrial fibrillation; I71.23 Aneurysm of the descending thoracic aorta, without rupture; E78.00 Pure hypercholesterolemia, unspecified; Z09 Encounter for follow-up examination after completed treatment for conditions other than malignant neoplasm
CPT/HCPCS: 99214; G2211

== ENCOUNTER → 2025-09-24 12:58 | Outpatient (BNVA) | payer OTHER, SELFPAY | PROVIDERS: PCP Physician Assistant | DX: I48.21 Permanent atrial fibrillation (principal); I25.10 Atherosclerotic heart disease of native coronary artery without angina pectoris; Z87.891 Personal history of nicotine dependence; Z09 Encounter for follow-up examination after completed treatment for conditions other than malignant neoplasm; I50.9 Heart failure, unspecified; I71.23 Aneurysm of the descending thoracic aorta, without rupture; Z79.01 Long term (current) use of anticoagulants; Z99.2 Dependence on renal dialysis; E78.00 Pure hypercholesterolemia, unspecified; I13.2 Hypertensive heart and chronic kidney disease with heart failure and with stage 5 chronic kidney disease, or end stage renal disease; N18.6 End stage renal disease | CPT/HCPCS: 99212 ==

== ENCOUNTER 2025-10-10 14:05 | Outpatient (AMB) | payer OTHER, SELFPAY ==
--- OUTSIDE RECORDS SUMMARY | 2025-10-10 14:30 | XMS_ITS | Encounter Summary ---
Author Organization [facility] [employer] Address [address] [place] [address] 7t [place] [address] Care Team Providers Care Financial Administrative Assistant Name Role Phone Sherry Ward MD Primary Care Provider [phone] Robe Parker PharmD Unavailable [phone] Reason for Referral * Imaging (Routine) - Closed Specialty Diagnoses / Procedures Referred By Contac t Referred To Contact Diagnoses Vertigo Ischemic heart disease Chronic atrial fibrillation (CMS/HCC) (HCC) Essential hypertension Procedures Mr Brain w/ and w/o Contrast Sherry Ward MD 230 [place] [address] Phone: tel: fax: [facility] MRI and CT Scan [address] [place] [address] Phone: tel: fax: Referral ID Status Reason Start Date Expiration Date Visits Re quested Visits Authorized [id number] Closed 11/17/2022 11/17/2023 1 1 Encounter Details Date Type Department Care Team (Late st Contact Info) Description 11/08/2022 Orders Only [facility] MEDICINE 230 [place], [place] [phone] Sherry Ward MD [address] [place], [place] [phone] Vertigo (Primary Dx); Ischemic heart disease; Chronic [...] hypertension documented in this encounter Care Teams Financial Administrative Assistant Relationship Specialty Start Date End Date Sherry Ward MD [address] [place] [address] PCP - General Family Medicine 11/20/18 12/17/23 Robe Parker, Gabby [address] [place] [address] Pharmacist Internal Medicine 06/15/23 documented as of this encounter
--- OUTSIDE RECORDS SUMMARY | 2025-10-10 14:30 | XMS_ITS | Patient Health Record ---
Author Organization [facility] Address [address] [place] [address] Care Team Providers Care Evp Chief Exploration Officer Name Role Phone Joycelyn Brothers M.D. Primary Care Provider Jasson Adams Unavailable [phone] Allergies Allergen (clinical drug ingredient) Drug/Non Drug Allergy documented on EMR Reaction Allergy Type Onset Date Status morphine Morphine Unknown Drug Allergy Active Reason For Referral No Information Medications Medication SIG (Take, Route, Frequency, Duration) Notes Start Date End Date Status Warfarin Sodium 5 MG Tablet 1 tablet Ora lly Once a day Active Gabapentin 100 MG Capsule 2 capsule Oral ly Once a day Active Metoprolol Tartrate 100 MG Tablet 1 tablet with food Orally once a day Active Vitamin D3 25 MCG (1000 UT) Tablet 1 capsule Orally Once a day Active Atorvastatin Calcium 80 MG Tablet 1 tablet Orally Once a day Active Digoxin 125 MCG Tablet 1 tablet Orally O nce a day Active Meclizine HCl 25 MG Tablet 1 tablet as n eeded Orally as needed Active Immunizations Vaccine Route Administration Date Status Comme nts Influenza Unknown 09/25/2018 Administered Social History Tobacco Use: Social History Observation Description Date Details (start date - stop date) Former Smoker NA - NA Social History Drugs/Alcohol: Social Info Question Answer Notes Alcohol Screen Did you have a drink containing alcohol in the past year? No Points 0 Interpretation Negative Tobacco Use: Social Info Question Answer Notes Tobacco Use/Smoking Patient is a former smoker How long has it been since you last smoked? 1-3 months Additional Details Category Social Info Options Details Miscellaneous: Marital status: Occupation: unemployed Section Notes: Smoker; no sig. alcohol Nonsmoker since 2014; no sig . alcohol Nonsmoker since 2014; no sig . alcohol Nonsmoker since 2014; no sig . alcohol Problems Problem Type SNOMED Code ICD Code Onset Dates Problem Status W/U Status Risk Notes Problem Screening for malignant neoplasm of colon (813045657) Encounter for screening for malignant neoplasm of colon (Z12.11) Active confirmed Problem History of adenomatous polyp of colon (608968485) History of adenomatous polyp of colon (Z86.010) Active confirmed Problem Abdominal bloating (643228154) Abdominal bloating (R14.0) Active confirmed Problem Preprocedural examination (306855993487222) Preprocedural examination (Z01.818) Active confirmed Problem Gallstones (154017204) Gallstones (K80.20) Active confirmed Problem Borborygmus (405907763) Borborygmus (R19.8) Active confirmed Plan Of Treatment Future Test Test Name Order Date UPPER GI ENDOSCOPY 08/23/2012 COLONOSCOPY 08/23/2012 COLONOSCOPY 12/26/2018 Insurance Providers Payer Name Payer Address Payer Phone Subscriber Number Group Number Insured Name Patient Relationship to Insured Coverage Start Date Coverage End Date [facility] [id number] [address] [place] [phone] [id number] ORTEZ [id number] Self - patient is the insured Medical (General) History Medical History History ICD Code Kidney disease-followed by Dr. Strong an HTN Denies ID,CVA,Lung disease Hyperlipidemia Rx'd for H.pylori in 06/2012 [...]
--- OUTSIDE RECORDS SUMMARY | 2025-10-10 14:30 | XMS_ITS | Encounter Summary ---
Author Organization [employer] Address [address] [place] [address] 7t [place] [address] Care Team Providers Care Sheet Metal Fabricator Name Role Phone Sherry Ward MD Primary Care Provider [phone] Robe Parker PharmD Unavailable [phone] Encounter Details Date Type Department Care Team (Late st Contact Info) Description 01/23/2023 Orders Only [facility] MEDICINE [address] [place] [address] Nivia Serrato MD [address] [place], [place] [phone] Hyperkalemia (Primary Dx) Social History Tobacco Use [...] Hyperpotassemia documented in this encounter Care Teams Sheet Metal Fabricator Relationship Specialty Start Date End Date Sherry Ward MD [address] [place] [phone] PCP - General Family Medicine 11/20/18 12/17/23 Robe Parker, PharmD [address] [place] [address] Pharmacist Internal Medicine 06/15/23 documented as of this encounter
--- OUTSIDE RECORDS SUMMARY | 2025-10-10 14:30 | XMS_ITS | Encounter Summary ---
Author Organization [facility] Address [address] [place] [address] Phone Care Team Providers Care Family Nurse Name Role Phone Joycelyn Brothers DO Primary Care Provider Unava ilable Encounter Details Date Type Department Care Team (Late st Contact Info) Description 11/08/2022 Telephone [facility] [address] [place] [address] Alex Garcia MD Social History Tobacco Use Types Packs/Day Years Used Date Smoking Tobacco: Former Cigarettes 0 Q uit: 11/20/2013 Smokeless Tobacco: Never Sex [...] She also wants to add that his pension adviser started him on digoxin 0.1 mg daily. Please advise Thank you CB# [phone] documented in this encounter Plan of Treatment Not on file documented as of this encounter Visit Diagnoses Not on filedocumented in this encounter Care Teams Family Nurse Relationship Specialty Start Date End Date Joycelyn Brothers DO PCP - General 11/30/20 documented as of this encounter
--- OUTSIDE RECORDS SUMMARY | 2025-10-10 14:30 | XMS_ITS | Encounter Summary ---
Author Organization [employer] Address [address] [facility] 7t [place] [address] Care Team Providers Care Commercial Producer Name Role Phone Sherry Ward MD Primary Care Provider [phone] Robe Parker PharmD Unavailable [phone] Encounter Details Date Type Department Care Team (Late st Contact Info) Description 11/04/2022 Orders Only [facility] MEDICINE 230 [place] [address] Sharon Ko, RN Social History Tobacco Use [...] on filedocumented in this encounter Care Teams Commercial Producer Relationship Specialty Start Date End Date Sherry Ward MD 230 [place] [address] PCP - General Family Medicine 11/20/18 12/17/23 Robe Parker, IrisD [address] [place] [address] Pharmacist Internal Medicine 06/15/23 documented as of this encounter
--- OUTSIDE RECORDS SUMMARY | 2025-10-10 14:30 | XMS_ITS | Clinical Summary ---
Author Organization [facility] Address [address] [place] [address] Phone Care Team Providers Care Oil House Attendant Name Role Phone Joycelyn Brothers DO Primary [...] fibrilation - medication: warfarin - monitored by [facility] - most recent INR 1.6 [...] 04/02/2021 Overview (01/26/2024): Last Assessment & Plan: -Roof Shingler: Dr. Roland, last seen in 12/27/21 -Baseline SCr 2.4-2.8; eGFR 22-26, CrCl 28.5 -Most recent lab: 08/05/22 K 5.2, BUN 46, SCr 2.48; eGFR 26 -Avoid nephrotoxic drugs/substances and behaviors, including NSAIDs use. -Renal dose medications. Tinea pedis 04/30/2018 Ischemic heart disease 04/30/2018 Overview (01/26/2024): Last Assessment & Plan: -Certified Vehicle Fire Investigator, Dr. Cain, seen on 11/10/22 -TIA in January 2018. Dx Afib. Started on Coumadin. -03/14/18 BRITTANY to distal RCA. Completed uninterrupted Plavix and Coumadin therapy for 1 year. Plan was to swithc Plavix to ASA. Pt is not on ASA or Plavix at this time because his CAD is stable per puller over. - Last echo in 12/28/21: Normal LV function, EF 55-60%. slight decrease from last echo. mild GERD reguigitation -Continue current medications History of placement of stent for coronary arter y disease 04/30/2018 Chronic atrial fibrillation 02/09/2018 Overview (01/26/2024): Last Assessment & Plan: A-fib today, rate controlled. pt is usually asymptomatic whether he is bradycardia and tachycardia -his puller over recommends rate control rather than rhythm control - Continue rate control with metoprolol tartrate 100 mg bid - Continue digoxin 125 mcg daily - Continue warfarin, which is monitored by [facility] Anticoagulation clinic -- Treatment Hx: --Previously on [...] 0 Q uit: 11/20/2013 Smokeless Tobacco: Never Tobacco [...] Years) Discontinued 03/21/2016, 06/18/2015, 04/14/[address] [place] [address] [employer] ([address]) [address] [place] [address] [facility] ([id number]) Care Teams Oil House Attendant Relationship Specialty Start Date End Date Joycelyn Brothers DO PCP - General 11/30/20
--- OUTSIDE RECORDS SUMMARY | 2025-10-10 14:31 | XMS_ITS | Encounter Summary ---
Author Organization [employer] Address [address] [facility] 7t [place] [address] Care Team Providers Care Purifying Plant Operator Name Role Phone Robe Parker PharmD Unavailable [phone] Reason for Visit * Reason Comments Med Refill Encounter Details Date Type Department Care Team ([facility] st Contact Info) Description 01/11/2024 Refill [facility] MEDICINE 230 [place] [address] Jaqui Chowdary MD 230 [place], [place] [phone] Social History Tobacco Use Types Packs/Day Years [...] on filedocumented in this encounter Care Teams Purifying Plant Operator Relationship Specialty Start Date End Date Robe Parker PharmD [address] [place] [address] Pharmacist Internal Medicine 06/15/23 documented as of this encounter
--- OUTSIDE RECORDS SUMMARY | 2025-10-10 14:31 | XMS_ITS | Encounter Summary ---
Author Organization [facility] Address [address] [facility] [address] [place] [address] Phone Care Team Providers Care Bulb Brander Name Role Phone Joycelyn Brothers DO Primary Care Provider Unahanna ilable Encounter Details Date Type Department Care Team (Late st Contact Info) Description 05/29/2021 Orders Only [facility] [address] [place] [phone] Alex Garcia MD Chronic kidney disease stage [...] (HCC) documented in this encounter Care Teams Bulb Brander Relationship Specialty Start Date End Date Joycelyn Brothers DO PCP - General 11/30/20 documented as of this encounter
--- OUTSIDE RECORDS SUMMARY | 2025-10-10 14:31 | XMS_ITS | Encounter Summary ---
Author Organization [employer] Address [address] [facility] 7t [place] [address] Care Team Providers Care Course Instructor Name Role Phone Robe Parker PharmD Unavailable [phone] Reason for Visit * Reason Comments Med Refill Encounter Details Date Type Department Care Team ([facility] st Contact Info) Description 09/26/2024 Refill [facility] MEDICINE 230 [place] [address] Sherry Ward MD 230 [place], [place] [phone] Dyslipidemia Social History Tobacco Use Types Packs/Day [...] hyperlipidemia documented in this encounter Care Teams Course Instructor Relationship Specialty Start Date End Date Robe Parker PharmD [address] [place] [address] Pharmacist Internal Medicine 06/15/23 documented as of this encounter
--- OUTSIDE RECORDS SUMMARY | 2025-10-10 14:31 | XMS_ITS | Encounter Summary ---
Author Organization [employer] Address [address] [facility] 7t [place] [address] Care Team Providers Care Display Maker Name Role Phone Sherry Ward MD Primary Care Provider [phone] Robe Parker PharmD Unavailable [phone] Encounter Details Date Type Department Care Team (Late st Contact Info) Description 11/02/2023 Orders Only [facility] MEDICINE 230 [place], [place] [phone] Sherry Ward MD 230 [place], [place] [phone] Left foot pain (Primary Dx) Social History [...] 149/92( 023 2:03 PM EST) No Robe Pakrer, Gabby documented as of this encounter Visit Diagnoses Diagnosis Left foot pain- Primary Pain in soft tissues of limb documented in this encounter Care Teams Display Maker Relationship Specialty Start Date End Date Sherry Ward MD [address] [place] [address] PCP - General Family Medicine 11/20/18 12/17/23 Robe Parker, PharmD 230 [place] [address] Pharmacist Internal Medicine 06/15/23 documented as of this encounter
--- OUTSIDE RECORDS SUMMARY | 2025-10-10 14:31 | XMS_ITS | Clinical Summary ---
Author Organization [employer] Address [address] [facility] 7t [place] [address] Care Team Providers Care Infant Childcare Provider Name Role Phone Robe Parker PharmD Unavailable [phone] Allergies Active Allergy Reactions Criticality Noted Date [...] 1 3 Active Lancets (OneTouch Delica Plus [id number]) [facility] Check blood sugar once daily 100 each [...] taking febuxostat 40 mg daily prescribed by threat monitoring analyst - continue febuxostat 40 mg daily - [...] - medication: warfarin - monitored by [facility] - most recent INR 2.2 on 10/20/23 - continue current treatment plan Assessment & Plan (03/21/2023 11:52 AM EDT): - indication: Atrial fibrilation - medication: warfarin - monitored by [facility] - most recent INR 1.6 [...] Assessment & Plan (11/05/2023 4:30 PM EST): -Loom Fixer Supervisor: Dr. Roland, last seen in Sep 2023 -Baseline SCr 2.0-2.4; eGFR 27-32, K 4.9-5.4 -Avoid nephrotoxic drugs/substances and behaviors, including NSAIDs use. -Renal dose medications. Assessment & Plan (03/13/2023 1:36 PM EDT): -Loom Fixer Supervisor: Dr. Roland, last seen in 12/27/21 -Baseline SCr 2.4-2.8; eGFR 22-26, CrCl 28.5 -Most recent lab: 08/05/22 K 5.2, BUN 46, SCr 2.48; eGFR 26 -Avoid nephrotoxic drugs/substances and behaviors, including NSAIDs use. -Renal dose medications. Assessment & Plan (12/19/2022 1:28 PM EST): -Loom Fixer Supervisor: Dr. Roland, last seen in 12/27/21 -Baseline SCr 2.4-2.8; eGFR 22-26, CrCl 28.5 -Most recent lab: 08/05/22 K 5.2, BUN 46, SCr 2.48; eGFR 26 -Avoid nephrotoxic drugs/substances and behaviors, including NSAIDs use. -Renal dose medications. Assessment & Plan (11/07/2022 4:55 AM EST): -Loom Fixer Supervisor: Dr. Roland, last seen in 12/27/21 -Baseline SCr 2.4-2.8; eGFR 22-26, CrCl 28.5 -Most recent lab: 08/05/22 K 5.2, BUN 46, SCr 2.48; eGFR 26 -Avoid nephrotoxic drugs/substances and behaviors, including NSAIDs use. -Renal dose medications. Chronic interstitial nephritis 04/02/2021 Proteinuria 04/02/2021 Ischemic heart disease 04/30/2018 Assessment & Plan (11/05/2023 4:06 PM EST): -Weaving Machine Operator, Dr. Cain, seen in April 2023 [...] Assessment & Plan (03/13/2023 1:29 PM EDT): -Weaving Machine Operator, Dr. Cain, seen on 11/10/22 -TIA in January 2018. Dx Afib. Started on Coumadin. -03/14/18 BRITTANY to distal RCA. Completed uninterrupted Plavix and Coumadin therapy for 1 year. Plan was to swithc Plavix to ASA. Pt is not on ASA or Plavix at this time because his CAD is stable per nonprofit director. - Last echo in 12/28/21: Normal LV function, EF 55-60%. slight decrease from last echo. mild GERD reguigitation -Continue current medications Assessment & Plan (12/25/2022 7:27 AM EST): -Weaving Machine Operator, Dr. Cain, seen on 11/10/22 -TIA in January 2018. Dx Afib. Started on Coumadin. -03/14/18 BRITTANY to distal RCA. Completed uninterrupted Plavix and Coumadin therapy for 1 year. Plan was to swithc Plavix to ASA. Pt is not on ASA or Plavix at this time because his CAD is stable per nonprofit director. - Last echo in 12/28/21: Normal LV function, EF 55-60%. slight decrease from last echo. mild GERD reguigitation -Continue current medications Assessment & Plan (11/07/2022 5:02 AM EST): -Weaving Machine Operator, Dr. Cain, seen on 05/19/22 -TIA in January 2018. Dx Afib. Started on Coumadin. -03/14/18 BRITTANY to distal RCA. Completed uninterrupted Plavix and Coumadin therapy for 1 year. Plan was to swithc Plavix to ASA. Pt is not on ASA or Plavix at this time because his CAD is stable per nonprofit director. - Last echo in 12/28/21: Normal LV [...] whether he is bradycardia and tachycardia -his nonprofit director recommends rate control rather than rhythm control - Continue rate control with metoprolol tartrate 100 mg bid - Continue digoxin 125 mcg daily - Continue warfarin, which is monitored by [facility] Anticoagulation clinic -- Treatment Hx: --Previously on [...] whether he is bradycardia and tachycardia -his nonprofit director recommends rate control rather than rhythm control - Continue rate control with metoprolol tartrate 100 mg bid - Continue digoxin 125 mcg daily - Continue warfarin, which is monitored by [facility] Anticoagulation clinic -- Treatment Hx: --Previously on [...] wheter he is bradycardiac and tachycardiac -his nonprofit director recommends rate control rather than rhythm control - Continue rate control with metoprolol tartrate 100 mg bid - Continue digoxin 125 mcg daily - Continue warfarin, which is monitored by [facility] Anticoagulation clinic -- Treatment Hx: --Previously on [...] -Pt requests to be referred to [facility] where his son goes Assessment & Plan (12/25/2022 7:05 AM EST): -last colonoscopy in April [address] Logan Assessment & Plan (11/08/2022 10:08 AM EST): -last colonoscopy in April [address] 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 pt is usually asymptomatic wheter he is bradycardiac and tachycardiac -his nonprofit director recommends rate control rather than rhythm control [...] -Continue Coumadin, which is monitored by [facility] anticoagulation clinic. -Holter monitor on 04/13/22 showed average HR 61 bpm, sinus. A-fib 36%. -Holter monitor on 09/08/22 showed average HR 101 bpm, baseline A-fib, HR > 100 for 67% period -Pt states he has been taking digoxin. Will confirm it with nonprofit director. Mild intermittent asthma 09/01/201503/2023 Immunizations Immunization Administration [...] disease, without long-term current use of insulin ([facility]) COLONOSCOPY Routine 04/22/2019 from Last 3 Months or Most Recently Relevant to Health Maintenance Results * (ABNORMAL) Lipid Panel with Reflex to Direct LDL (10/30/2023 2:57 PM EST) Triglycerides 433(H) <150 mg/dL [facility] Comment:Desirable Triglyceri de: less than 150 mg/dLBorderline High Triglyceride 150-199 mg/dLHigh Triglyceride: 200-499 mg/dLVery High Triglyceride: greater than or equal to 5OO mg/dL Cholesterol 266(H) <200 mg/dL [facility] Comment:Desirable Cholestero l: less than 200 mg/dLBorderline High Cholesterol: 200-239 mg/dLHigh Cholesterol: greater than 239 mg/dL LDL Cholesterol Calculated TNP <100 mg/dL [facility] Comment:Unable to calculate the LDL. The formula of Friedwald,Olsen, and Stefanie is only valid if the triglycerides areless than 400 mg/dl. HDL Cholesterol 28(L) >40 mg/dL [facility] Comment:Desirable HDL: great er than 40 mg/dL Note: This HDL assay may give artificially low results in patients with liver disease. Blood 10/30/2023 2:57 PM EST 10/30/2023 3:58 PM EST us Sherry Ward MD LAB BLOOD ORDERABLES Final Resul t [facility] [address] [place] [phone] * (ABNORMAL) POCT glycosylated hemoglobin (Hgb A1c) (10/30/2023 2:23 PM EST) Hemoglobin A1C 7.1(A) 4.0 - 6.0 % QC Media Lot # [id number] Lot# Expiration Date Blood Capillary blood specimen / Unknown 10/30/2023 2:23 PM EST us Sherry Ward MD POINT OF CARE TEST ENTER/EDIT OR DERABLES Final Result * Colonoscopy (04/22/2019) [facility] Signature Colonoscopy Normal Normal [place] Provider HEALTH MAINTENANCE Final Result from Last 3 Months or Most Recently Relevant to Health Maintenance Insurance [facility] DUAL COMPLETE [facility] [address] [place] [address] [place] [address] [address] [place] [id number] Care Teams Infant Childcare Provider Relationship Specialty Start Date End Date Robe Parker, PharmD [address] [place] [address] Pharmacist Internal Medicine 06/15/23
--- OUTSIDE RECORDS SUMMARY | 2025-10-10 14:31 | XMS_ITS | Encounter Summary ---
Author Organization [employer] Address [address] [facility] 7t [place] [address] Care Team Providers Care Small Engine Trainer Name Role Phone Robe Parker PharmD Unavailable [phone] Reason for Visit * Reason Comments Med Refill Encounter Details Date Type Department Care Team ([facility] st Contact Info) Description 03/11/2024 Refill [facility] MEDICINE 230 [place] [address] Sherry Ward MD 230 [place], [place] [phone] Neuropathic pain Social History Tobacco Use Types [...] pain documented in this encounter Care Teams Small Engine Trainer Relationship Specialty Start Date End Date Robe Parker PharmD [address] [place] [phone] Pharmacist Internal Medicine 06/15/23 documented as of this encounter
--- OUTSIDE RECORDS SUMMARY | 2025-10-10 14:31 | XMS_ITS | Encounter Summary ---
Author Organization [employer] Address [address] [facility] 7t [place] [address] Care Team Providers Care Bridal Consultant Name Role Phone Robe Parker PharmD Unavailable [phone] Reason for Visit * Reason Comments Med Refill Encounter Details Date Type Department Care Team ([facility] st Contact Info) Description 03/08/2024 Refill [facility] MEDICINE [address] [place] [address] Roopa Unger ANP [address] [place] [address] Social History Tobacco Use Types Packs/Day Years [...] on filedocumented in this encounter Care Teams Bridal Consultant Relationship Specialty Start Date End Date Robe Parker PharmD [address] [place] [phone] Pharmacist Internal Medicine 06/15/23 documented as of this encounter
--- OUTSIDE RECORDS SUMMARY | 2025-10-10 14:31 | XMS_ITS | Encounter Summary ---
Author Organization [employer] Address [address] [facility] 7[address] [place] [address] Care Team Providers Care Loader Operator Supervisor Name Role Phone Sherry Ward MD Primary Care Provider [phone] Robe Parker PharmD Unavailable [phone] Encounter Details Date Type Department Care Team (Late st Contact Info) Description 11/02/2023 Orders Only [facility] MEDICINE [address] [place], [place] [phone] Sherry Ward MD 230 [place], [place] [phone] Social History Tobacco Use Types Packs/Day Years [...] on filedocumented in this encounter Care Teams Loader Operator Supervisor Relationship Specialty Start Date End Date Sherry Ward MD [address] [place] [address] PCP - General Family Medicine 11/20/18 12/17/23 Robe Parker, PharmD [address] [place] [address] Pharmacist Internal Medicine 06/15/23 documented as of this encounter
--- OUTSIDE RECORDS SUMMARY | 2025-10-10 14:31 | XMS_ITS | Encounter Summary ---
Author Organization [employer] Address [address] [facility] 7t [place] [address] Care Team Providers Care Supervisor Photostat Name Role Phone Robe Parker PharmD Unavailable [phone] Reason for Visit * Reason Comments Med Refill Encounter Details Date Type Department Care Team ([facility] st Contact Info) Description 03/08/2024 Refill [facility] MEDICINE [address] [place] [address] Sherry Ward MD [address] [place], [place] [phone] Neuropathic pain Social History Tobacco Use Types [...] pain documented in this encounter Care Teams Supervisor Photostat Relationship Specialty Start Date End Date Robe Parker PharmD [address] [place] [phone] Pharmacist Internal Medicine 06/15/23 documented as of this encounter
--- OUTSIDE RECORDS SUMMARY | 2025-10-10 14:31 | XMS_ITS | Encounter Summary ---
Author Organization [employer] Address [address] [facility] 7t [place] [address] Care Team Providers Care Java User Interface Developer Name Role Phone Robe Parker PharmD Unavailable [phone] Reason for Visit * Reason Comments Med Refill Encounter Details Date Type Department Care Team ([facility] st Contact Info) Description 05/07/2024 Refill [facility] MEDICINE [address] [place] [address] Sherry Ward MD [address] [place], [place] [phone] Social History Tobacco Use Types Packs/Day Years [...] filedocumented in this encounter Care Teams Java User Interface Developer Relationship Specialty Start Date End Date Robe Parker PharmD [address] [place] [address] Pharmacist Internal Medicine 06/15/23 documented as of this encounter
--- OUTSIDE RECORDS SUMMARY | 2025-10-10 14:31 | XMS_ITS | Encounter Summary ---
Author Organization [employer] Address [address] [facility] 7t [place] [address] Care Team Providers Care Service Correspondent Name Role Phone Robe Parker PharmD Unavailable [phone] Reason for Visit * Reason Comments Med Refill Encounter Details Date Type Department Care Team ([facility] st Contact Info) Description 08/05/2024 Refill [facility] MEDICINE [address] [place] [address] Sherry Ward MD 230 [place], [place] [phone] Social History Tobacco Use Types Packs/Day Years [...] on filedocumented in this encounter Care Teams Service Correspondent Relationship Specialty Start Date End Date Robe Parker PharmD [address] [place] [address] Pharmacist Internal Medicine 06/15/23 documented as of this encounter
--- OUTSIDE RECORDS SUMMARY | 2025-10-10 14:31 | XMS_ITS | Encounter Summary ---
Author Organization [employer] Address [address] [facility] 7t [place] [address] Care Team Providers Care Senior Qc Technician Name Role Phone Sherry Ward MD Primary Care Provider [phone] Robe Parker PharmD Unavailable [phone] Reason for Visit * Reason Onset Date Comments triage 11/25/2022 Encounter Details Date Type Department Care Team ([facility] st Contact Info) Description 11/25/2022 Telephone [facility] MEDICINE 230 [place], [place] [phone] Sherry Ward MD 230 [place], [place] [phone] triage Social History Tobacco Use Types Packs/Day [...] 11/25/2022 4:06 PM EST Triage call with [employer] [place] [id number] Pt reports son came over this morning to test with home test. Pt isn't sure if it is positive and is requesting medication. Pt reports has had Covid before . Pt is unable to come to [facility] today for further testing. Pt symptoms [...] filedocumented in this encounter Care Teams Senior Qc Technician Relationship Specialty Start Date End Date Sherry Ward MD [address] [place] [address] PCP - General Family Medicine 11/20/18 12/17/23 Robe Parker, IrisD [address] [place] [address] Pharmacist Internal Medicine 06/15/23 documented as of this encounter
[2025-10-10 14:37] VITALS: BP 120/80; PULSE 56; TEMP 36.3; O2SAT 99; BMI 27.8
--- NOTE | 2025-10-10 14:37 | A.OFFPC_ITS ---
Vital Signs 10/10/25 14:37 Height 5 ft 6 in Weight 172 lb BMI 27.8 BP 120/80 Blood Pressure Location Lt brachial Position Sitting Pulse 56 Pulse Source Pulse Oximeter Temp 97.3 F Temp Source Temporal Artery Scan Pulse Oximetry (%) 99 Oxygen Delivery Method Room Air Intake Visit Reasons: 3M follow up Colon Therapist Required: No C 40A Crew Chief: Present Accompanied by: Son Allergies lisinopril (LISINOPRIL) Allergy (Severe, Verified 10/10/25 14:39) ACUTE KIDNEY INJURY oxycodone (Percocet) Allergy (Intermediate, Verified 10/10/25 14:39) agitation codeine (CODEINE) Allergy (Unknown, Verified 10/10/25 14:39) AGITATION morphine (MORPHINE) Allergy (Unknown, Verified 10/10/25 14:39) AGITATION, confusion dicyclomine (From A-Spas (dicyclomine)) Adverse Reaction (Intermediate, Verified 10/10/25 14:39) Confusion From PERCOCET Allergy (Unknown, Uncoded 09/03/25 04:46) AGITATION Tobacco use date assessed: 08/29/25 Fall risk assessment: No Falls in past year Last assessed Fall Risk: 08/29/25 Dental Screening Dental Screen Date: 08/29/25 Did you have a dental visit in the last 12 months?: No Did you have a dental problem in the last 6 months where you did not have access to dental care?: No Was dental information given to patient?: No HPI HPI Comments History of Present Illness Details The patient is a 75 year old M with PMH of atrial fibrillation on Eliquiss, mixed hyperlipidemia (on Lipitor), stage 4 chronic kidney disease, hypertension, coronary artery disease, and congestive heart failure with an ejection fraction of 45?50% presenting for a routine appointment for medication management. The patient started hemodialysis last month after he was admitted recently for AMS. Dialysis sessions occur on TTS. Despite being on dialysis, the patient continues to urinate. The management of the patient's hypertension has been adjusted since starting dialysis due to episodes of hypotension during treatment. The nephrology team (from Dr. Simmons' office) instructed a decrease in the metoprolol dose from 100 mg to 25 mg twice daily, but the pharmacy has not received the new prescription. In the interim, the patient has been cutting the 100 mg tablet into four pieces to approximate a 25 mg dose. The office machine mechanic also advised discontinuing amlodipine. The patient was switched from Coumadin to Eliquiss while in the hospital and was requesting refills. [facility] Medical History (Updated 10/10/25 @ 15:35 by Emily Fountain MD) ESRD (end stage renal disease) HTN (hypertension) CAD (coronary artery disease) Noncompliance with medication regimen Acute exacerbation of congestive heart failure CKD (chronic kidney disease) stage 5, GFR less than 15 ml/min Anemia Atrial fibrillation Abdominal bloating Generalized abdominal pain Allergies Sinus bradycardia Pre-op examination Annual physical exam History of TIA (transient ischemic attack) Gout Personal history of nicotine dependence Chronic kidney disease, stage 3 unspecified Benign prostatic hyperplasia with lower urinary tract symptoms Paroxysmal atrial fibrillation Surgical History Stented coronary artery Hx of colonoscopy Hx of cardiac cath Hx of cystoscopy History of esophagogastroduodenoscopy (EGD) Hx of cataract extraction Family History Mother CAD (coronary artery disease) Diabetes HTN (hypertension) Father CAD (coronary artery disease) Diabetes HTN (hypertension) Social History Household Members: None Housing: House Do you presently have visiting nurse or other home services: No Alcohol intake: former Comment: Son is bedside Patient Tobacco Use Status: Former Tobacco user Tobacco use type: Cigarette Years Smoked: 40 +/- e-Cigarette/Vaping Use: Never Used Second Hand Smoke Exposure: No service: No Current occupational status: retired and disabled Cognitive needs: No Hearing needs: No Vision needs: Yes Questionnaire PHQ-9 Over the last 2 weeks, how often have you been bothered by any of the following problems? 1. Little interest or pleasure in doing things: not at all 2. Feeling down, depressed, or hopeless: not at all 3. Trouble falling or staying asleep, or sleeping too much: not at all 4. Feeling tired or having little energy: not at all 5. Poor appetite or overeating: not at all 6. Feeling bad about yourself - or that you are a failure or have let yourself or your family down: not at all 7. Trouble concentrating on things, such as reading the newspaper or watching television: not at all 8. Moving or speaking so slowly that other people could have noticed. Or the opposite - being so fidgety or restless that you have been moving around a lot more than usual: not at all 9. Thoughts that you would be better off or of hurting yourself in some way: not at all Total score: 0 Depression Screening Interpretation: Negative Depression Screening Done: Yes Source: Developed by Drs. Jasson Ramos, Alanna Allen, Wai Tanner and colleagues, with an educational marcell from [employer]. Thrive Questionnaire Date Thrive assessed: 03/25/25 I am a: Patient What is your living situation today?: I have a steady place to live Within the past 12 months, did the food you bought not last and you didn't have the money to get more?: I choose not to answer this question Within the past 12 months, did you worry whether your food would run out before you got money to buy more?: I choose not to answer this question Do you have trouble paying for medicines?: No Do you have trouble getting transportation to medical appointments?: I choose not to answer this question Do you have trouble paying your heating and electricity bill?: I choose not to answer this question Do you have trouble taking care of your child, family member or friend?: I choose not to answer this question Do you have trouble with day-to-day activities such as bathing, preparing meals, shopping, managing finances, etc.?: I choose not to answer this question Are you currently unemployed and looking for a job?: I choose not to answer this question Are you interested in more education?: I choose not to answer this question Please select the resources that you would like help with: None Currently or been in a relationship where the following occur: I choose not to answer THRIVE Score: 0 AUDIT C Alcohol Use Questionnaire (AUDIT-C) 1. How often do you have a drink containing alcohol?: Never 3. How often do you have six or more drinks on one occasion?: Never Total Score: 0 Score Reviewed/Action Taken: No FAUSTINA-7 AMB Questionnaire FAUSTINA-7 Date FAUSTINA - 7 assessed: 03/27/25 Feeling nervous, anxious, or on edge: 0 = Not at all Not being able to stop or control worryin = Not at all Worrying too much about different things: 0 = Not at all Trouble relaxin = Not at all Being so restless that it is hard to sit still: 0 = Not at all Becoming easily annoyed or irritable: 0 = Not at all Feeling afraid as if something awful might happen: 0 = Not at all Total FAUSTINA-7 score (0-4 normal; 5-9 mild; 10-14 moderate; 15-21 severe): 0 Source: Developed by Drs. Jasson Ramos, Alanna Allen, Wai Tanner and colleagues, with an educational marcell from [employer]. Review of Systems Const Details: As per HPI. Physical exam (Primary Care) Vital Signs: Last Vital Signs Temp 97.3 F 10/10/25 14:37 Pulse 56 10/10/25 14:37 BP 120/80 10/10/25 14:37 Pulse Ox 99 10/10/25 14:37 Oxygen Delivery Method Room Air 10/10/25 14:37 BMI result Body Mass Index 27.8 Tobacco/Smoking Status: Tobacco use Status Tobacco use date assessed 08/29/25 10/10/25 14:49 Patient Tobacco Use Status Former Tobacco user 10/10/25 14:49 Tobacco use type Cigarette 10/10/25 14:49 e-Cigarette/Vaping Use Never Used 10/10/25 14:49 PHQ-9: PHQ-9 Score PHQ-9: Total score 0 10/10/25 14:52 Depression Screening Interpretation: Negative Thrive Assessment: Date of Thrive Assessment Date Thrive assessed 03/25/25 10/10/25 14:49 Currently or been in a relationship where the following occur: I choose not to answer Const Other: Pertinent findings are in BOLD GENERAL APPEARANCE NAD, activity normal for age, well developed/ well nourished, no cyanosis, pallor, or diaphoresis. EYES lids/conjunctiva normal. EARS/NOSE/THROAT Mucous membranes moist, nares normal, lips/teeth normal uvula midline without oral pharyngeal erythema, exudate or swelling TMs normal bilaterally. No lymphangitis/lymphedema. HEAD/NECK normocephalic atraumatic, no facial trauma, neck is supple. RESPIRATORY respiratory effort normal, speaks in full sentences, no tripod position, no accessory muscle use. Lungs clear to auscultation without rhonchi, wheezes, rales CARDIAC Regular rate and rhythm, no edema. ABDOMINAL Soft, ND/NT. No evidence of fluid wave. No pulsatile masses on exam, rebound tenderness, Fuentes sign or pain over Mcburney's point. MUSCLES/EXTREMITIES No abnormal range of motion, no swelling. SKIN Warm, pink and dry. No rashes, dermatoses, petechiae or lesions. Lip abrasion with no signs of infection/ inflammation. NEUROLOGICAL Speech is clear and appropriate. Normal level of consciousness. Gait and coordination are normal. 5/5 strength in all extremities. PSYCH Normal mood and affect. Judgement/competence is appropriate. Coding Level of Care Code Est Pt Level 4 (27888) Diagnoses Primary hypertension I10 Hypertension type: primary hypertension ESRD (end stage renal disease) N18.6 Preventative health care Z00.00 Skin lesion L98.9 Assessment & Plan Assessment & Plan (1) HTN (hypertension): Code(s): I10 - Essential (primary) hypertension Category: Medical Qualifiers: Hypertension type: primary hypertension Qualified Code(s): I10 - Essential (primary) hypertension Plan: - The office machine mechanic recommended decreasing metoprolol to 25 mg twice daily due to hypotension during dialysis, but the prescription was not received by the medical [facility]. - Will contact the office machine mechanic to clarify the correct formulation (Succinate vs. Tartrate) and dose of metoprolol. - Instructed the patient to take 25 mg (by quartering the 100 mg tablet) on non- dialysis days and to hold the dose on Monday until further instructions are provided after confirming with nephrology. - Amlodipine will be discontinued from the medication list as per the nephro logist's recommendation. - Eliquiss refilled. - Will follow up with the patient's son via phone call on Monday with updated instructions. (2) ESRD (end stage renal disease): Code(s): N18.6 - End stage renal disease Category: Medical Plan: - The patient is on hemodialysis, which was initiated last month. - Regarding the patient's son's inquiry about prognosis, it was recommended to discuss the significance of continued urination and potential for kidney recovery directly with the nephrologis (3) Preventative health care: Code(s): Z00.00 - Encounter for general adult medical examination without abnormal findings Category: Medical Plan: The patient's son inquired about the need for vaccination as his father recently was started on HD. - Influenza vaccine: Discussed. The patient has not had one this year; the patient's son will discuss with the dialysis team. - Shingles vaccine: Recommended redoing the 2-dose series with an interval of 2- 6 months due to improper administration of the previous series (doses 7 years apart). Advised to check with dialysis team first. - Hepatitis B vaccine: The patient was vaccinated in 2009. Recommended clarifying with dialysis center as they may have initiated a new vaccine series. (4) Skin lesion: Comment: lower lip Code(s): L98.9 - Disorder of the skin and subcutaneous tissue, unspecified Category: Medical Plan: - Reassurance provided that the lesion will heal on its own. - Recommended using an [id number]-okzvanq hydrating cream if the lesion is bothersome. Plan I discussed the medication management plan with the patient and the patient's son. I explained that I will contact the office machine mechanic to clarify the metoprolol prescription and will call the son, Aydee, on Monday with an update. I provided interim instructions to continue a reduced dose by cutting the current pills and holding the dose on the day of dialysis. We confirmed discontinuation of amlodipine and I sent a refill for Eliquis. We reviewed the patient's immunization status. I recommended re-initiating the two-dose Shingrix series due to the improper interval of the previous vaccination and advised them to consult with the dialysis center regarding the timing of this, as well as the influenza and hepatitis B vaccines. When asked about the prognosis for kidney recovery, I advised that this question is best answered by the patient's office machine mechanic to avoid providing inaccurate hope or information. For the minor facial lesion, I provided reassurance and recommended supportive care with an mdzf-jrh-qhjwuhz hydrating cream if needed. Medications: Refilled apixaban (Eliquis) 2.5 mg PO BID 60 tabs 3RF
== END 2025-10-10 15:23 | disposition home or self-care (01) ==
LOC: HO.HMCH 14:06
PROVIDERS: PCP Physician Assistant; Visit Provider Internal Medicine
DX: I12.0 Hypertensive chronic kidney disease with stage 5 chronic kidney disease or end stage renal disease (principal); N18.6 End stage renal disease; Z00.00 Encounter for general adult medical examination without abnormal findings; L98.9 Disorder of the skin and subcutaneous tissue, unspecified

== ENCOUNTER → 2025-10-10 14:05 | Outpatient (BNVA) | payer OTHER, SELFPAY | PROVIDERS: PCP Physician Assistant; Visit Provider Internal Medicine | DX: Z00.00 Encounter for general adult medical examination without abnormal findings (principal); I12.9 Hypertensive chronic kidney disease with stage 1 through stage 4 chronic kidney disease, or unspecified chronic kidney disease; N18.6 End stage renal disease; L98.9 Disorder of the skin and subcutaneous tissue, unspecified | CPT/HCPCS: 96127; 99212 ==

== ENCOUNTER → 2025-10-20 23:59 | Outpatient (BNV) | payer OTHER, SELFPAY | PROVIDERS: PCP Physician Assistant; Visit Provider Internal Medicine Nephrology | DX: N18.6 End stage renal disease (principal) | CPT/HCPCS: 90961 ==

== ENCOUNTER 2025-10-29 13:10 | Outpatient (AMB) | payer OTHER, SELFPAY ==
[2025-10-29 13:34] VITALS: BP 114/62; PULSE 70; O2SAT 97; BMI 28.1
--- NOTE | 2025-10-29 13:34 | MHC.PC.OV ---
Vital Signs 10/29/25 13:34 Height 5 ft 6 in Weight 174 lb BMI 28.1 BP 114/62 Blood Pressure Location Lt brachial Position Sitting Pulse 70 Pulse Source Pulse Oximeter Pulse Oximetry (%) 97 Oxygen Delivery Method Room Air Intake Visit Reasons: 3 weeks w Huseyin Allergies lisinopril (LISINOPRIL) Allergy (Severe, Verified 10/29/25 13:42) ACUTE KIDNEY INJURY oxycodone (Percocet) Allergy (Intermediate, Verified 10/29/25 13:42) agitation codeine (CODEINE) Allergy (Unknown, Verified 10/29/25 13:42) AGITATION morphine (MORPHINE) Allergy (Unknown, Verified 10/29/25 13:42) AGITATION, confusion dicyclomine (From A-Spas (dicyclomine)) Adverse Reaction (Intermediate, Verified 10/29/25 13:42) Confusion From PERCOCET Allergy (Unknown, Uncoded 10/29/25 13:42) AGITATION Medication List - Last Reconciled 10/29/25 by Preet An PA-C apixaban (Eliquis) 2.5 mg PO BID atorvastatin 80 mg PO DAILY cholecalciferol (vitamin D3) 25 mcg PO DAILY compression socks, large As directed febuxostat (Uloric) 40 mg PO DAILY fluticasone propionate 50 mcg/actuation 1 spray intranasal DAILY 30 days furosemide 40 mg PO DAILY gabapentin 200 mg (2 x 100 mg) PO BEDTIME 30 days meclizine 25 mg PO TID PRN 30 days metoprolol succinate ER 25 mg PO QID sevelamer HCl (Renagel) 800 mg PO TID Tobacco use date assessed: 08/29/25 Fall risk assessment: No Falls in past year Last assessed Fall Risk: 10/29/25 Dental Screening Dental Screen Date: 08/29/25 HPI 3 weeks w Huseyin HPI Details Patient is a 75 year male here today for follow-up visit Patient has a past medical history significant for AFib (followed by Cardiology), gout, thoracic aortic aneurysm (followed by vascular) hypertension, CKD stage 5(followed by Nephrology), coronary artery disease. .. AFib: Continues on eliquis for anticoagulation without any overt signs of bleeding. His metoprolol was reduced to a lower dose 25mg. Also followed by [facility]. .. Thoracic aneurysm: Continues to follow vascular and recently had CT chest showing Ascending thoracic aorta measures 4 cm in diameter. Descending thoracic aorta measures 4 cm in diameter. Aorta measures 3.5 cm in diameter at the diaphragmatic hiatus . .. Hypertension--. Hypertension has been a concern, with recent blood pressure readings at 136/90 mmHg. The patient is currently on amlodipine 2.5 mg, and an increase to 5 mg has been considered to better control blood pressure and potentially alleviate associated headaches. .. End-stage renal disease: The patient is on dialysis and has had issues with the dialysis access site in his chest, which does not seem to be working well. He has been experiencing dizziness and reports his heart rate going too slow during dialysis. He is scheduled for a cardiac CT angiogram to evaluate for coronary artery blockages. The patient reports he is still able to urinate. --> The patient is seeking a INSIGHTS STRATEGIST to assist with activities of daily living, including cooking, cleaning and laundry. An application was made through an agency ([employer]) but he was told it could take up to six months for approval. [facility] Medical History ESRD (end stage renal disease) HTN (hypertension) CAD (coronary artery disease) Noncompliance with medication regimen Acute exacerbation of congestive heart failure CKD (chronic kidney disease) stage 5, GFR less than 15 ml/min Anemia Atrial fibrillation Abdominal bloating Generalized abdominal pain Allergies Sinus bradycardia Pre-op examination Annual physical exam History of TIA (transient ischemic attack) Gout Personal history of nicotine dependence Chronic kidney disease, stage 3 unspecified Benign prostatic hyperplasia with lower urinary tract symptoms Paroxysmal atrial fibrillation Surgical History Stented coronary artery Hx of colonoscopy Hx of cardiac cath Hx of cystoscopy History of esophagogastroduodenoscopy (EGD) Hx of cataract extraction Family History Mother CAD (coronary artery disease) Diabetes HTN (hypertension) Father CAD (coronary artery disease) Diabetes HTN (hypertension) Social History Household Members: None Housing: House Do you presently have visiting nurse or other home services: No Alcohol intake: former Comment: Son is bedside Patient Tobacco Use Status: Former Tobacco user Tobacco use type: Cigarette Years Smoked: 40 +/- e-Cigarette/Vaping Use: Never Used Second Hand Smoke Exposure: No service: No Current occupational status: retired and disabled Cognitive needs: No Hearing needs: No Vision needs: Yes Questionnaire Thrive Questionnaire Date Thrive assessed: 03/25/25 I am a: Patient What is your living situation today?: I have a steady place to live Within the past 12 months, did the food you bought not last and you didn't have the money to get more?: I choose not to answer this question Within the past 12 months, did you worry whether your food would run out before you got money to buy more?: I choose not to answer this question Do you have trouble paying for medicines?: No Do you have trouble getting transportation to medical appointments?: I choose not to answer this question Do you have trouble paying your heating and electricity bill?: I choose not to answer this question Do you have trouble taking care of your child, family member or friend?: I choose not to answer this question Do you have trouble with day-to-day activities such as bathing, preparing meals, shopping, managing finances, etc.?: I choose not to answer this question Are you currently unemployed and looking for a job?: I choose not to answer this question Are you interested in more education?: I choose not to answer this question Please select the resources that you would like help with: None Currently or been in a relationship where the following occur: I choose not to answer THRIVE Score: 0 FAUSTINA-7 AMB Questionnaire FAUSTINA-7 Date FAUSTINA - 7 assessed: 03/27/25 Source: Developed by Drs. Jasson Ramos, Alanna Allen, Wai Tanner and colleagues, with an educational marcell from [employer]. Review of Systems Const Denies headache(s) Eyes Denies loss of vision ENT Denies vertigo, Denies dizziness, Denies headache(s) and Denies sore throat Card Denies chest pain, Denies leg edema and Denies lightheadedness Resp Denies cough, Denies hemoptysis and Denies wheezing GI Denies abdominal pain, Denies melena, Denies constipation, Denies diarrhea and Denies vomiting Denies dysuria, Denies urinary frequency and Denies urinary urgency Musc Denies arthralgias, Denies joint swelling, Denies numbness and Denies tingling Neuro Denies Abnormal speech present, Denies behavioral changes, Denies vertigo, Denies dizziness, Denies headache(s), Denies loss of vision, Denies memory loss, Denies numbness and Denies tingling Psych Denies anxiety, Denies behavioral changes, Denies depression, Denies memory loss and Denies panic attacks Adonis/Lymph Denies easy bleeding and Denies easy bruising Aller/Immun Denies wheezing Physical exam (Primary Care) Vital Signs: Last Vital Signs Pulse 70 10/29/25 13:34 BP 114/62 10/29/25 13:34 Pulse Ox 97 10/29/25 13:34 Oxygen Delivery Method Room Air 10/29/25 13:34 BMI result Body Mass Index 28.1 Tobacco/Smoking Status: Tobacco use Status Tobacco use date assessed 08/29/25 10/29/25 13:39 Patient Tobacco Use Status Former Tobacco user 10/29/25 13:39 Tobacco use type Cigarette 10/29/25 13:39 e-Cigarette/Vaping Use Never Used 10/29/25 13:39 Thrive Assessment: Date of Thrive Assessment Date Thrive assessed 03/25/25 10/29/25 13:39 Currently or been in a relationship where the following occur: I choose not to answer Const General: healthy appearing, no acute distress, alert and awake Nutritional Appearance: well nourished Orientation/consciousness: oriented to person, oriented to place and oriented to time HENMT Ears: TM's normal bilaterally General nose exam: Normal nasal mucous membranes and turbinates present Eyes Conjunctivae: conjunctivae normal Sclerae: sclerae normal Pupils: Equal, round and reactive pupils present Neck Neck: Yes no lymphadenopathy and Yes no JVD Thyroid: Thyroid normal Carotids: no bruits Resp Effort & Inspection: normal respiratory effort and not tachypneic Auscultation: no crackles, no rales, no rhonchi and no wheezes Cardio Rate: regular rate Rhythm: regular rhythm Heart sounds: no murmurs and normal S1 and S2 GI Palpation (GI): Soft to palpation, nontender, no hepatomegaly and no splenomegaly Auscultation: normal bowel sounds Skin General skin exam: no rashes or lesions noted and dry skin Neuro General: oriented to person, oriented to place and oriented to time Cranial nerves: Yes Equal, round and reactive pupils present Speech: No Abnormal speech present Gait exam (Neuro): Normal gait present Motor exam (neuro): no tremor noted Extrem Right upper extremity: full ROM Left upper extremity: full ROM Right lower extremity: full ROM; no edema Left lower extremity: full ROM; no edema Psych Mental Status: mental status grossly normal Speech and movement: Normal speech and movement present Affect: normal affect Attitude: cooperative Thought process: Normal thought process present Coding Level of Care Code Est Pt Level 4 (29268) Diagnoses ESRD (end stage renal disease) N18.6 Coronary artery disease involving [place] coronary artery of [place] heart without angina pectoris I25.10 Coronary Disease-Associated Artery/Lesion type: [place] artery [place] vs. transplanted heart: [place] heart Associated angina: without angina Primary hypertension I10 Hypertension type: primary hypertension Assessment & Plan Assessment & Plan (1) ESRD (end stage renal disease): Code(s): N18.6 - End stage renal disease Category: Medical Plan: Regarding the patient's episodes of low blood pressure during dialysis, we discussed that this is a common side effect and is the reason his metoprolol dose was reduced. It was also discussed that the furosemide (water pill) may be contributing to dehydration and low blood pressure. I advised that he can try holding the furosemide on dialysis days or taking a lower dose (20 mg) on non-dialysis days to see if that helps with the low blood pressure. I advised the patient to discuss discontinuing furosemide with his dialysis nurse. To expedite the request for a Fire Prevention Engineer (INSIGHTS STRATEGIST), I will complete the necessary paperwork and write a letter of medical necessity detailing the patient's medical conditions, including end-stage renal disease, and his need for assistance with activities of daily living. This documentation will be faxed to the patient's preferred agency, [facility]. (2) CAD (coronary artery disease): Code(s): I25.10 - Atherosclerotic heart disease of [place] coronary artery without angina pectoris Category: Medical Qualifiers: Coronary Disease-Associated Artery/Lesion type: [place] artery [place] vs. transplanted heart: [place] heart Associated angina: without angina Qualified Code(s): I25.10 - Atherosclerotic heart disease of [place] coronary artery without angina pectoris Plan: Patient followed by Cardiology, Blood pressure stable. Will continue current doses of antihypertensive medication. LDL optimal goal to be below 70 (3) HTN (hypertension): Code(s): I10 - Essential (primary) hypertension Category: Medical Qualifiers: Hypertension type: primary hypertension Qualified Code(s): I10 - Essential (primary) hypertension Plan: Continues on dialysis treatment 3 times a week, managing his blood pressure with dialysis and also metoprolol 25 mg. Does have lower blood pressures after dialysis treatments and explained that this is a common occurrence with dialysis treatments Goal blood pressures to be below 140/90 Medications: New magnesium oxide 250 mg PO BID 60 tabs 3RF 30 days M79.10 - Myalgia, unspecified site
== END 2025-10-29 14:20 | disposition home or self-care (01) ==
LOC: HO.HMCH 13:11
PROVIDERS: PCP Physician Assistant; Visit Provider Physician Assistant
DX: N18.6 End stage renal disease (principal); I25.10 Atherosclerotic heart disease of native coronary artery without angina pectoris; I12.0 Hypertensive chronic kidney disease with stage 5 chronic kidney disease or end stage renal disease

== ENCOUNTER → 2025-10-29 13:10 | Outpatient (BNVA) | payer OTHER, SELFPAY | PROVIDERS: PCP Physician Assistant; Visit Provider Physician Assistant | DX: N18.6 End stage renal disease (principal); I25.10 Atherosclerotic heart disease of native coronary artery without angina pectoris; I10 Essential (primary) hypertension; M79.10 Myalgia, unspecified site | CPT/HCPCS: 99212 ==